=== PATIENT | male | born 1955 | race Caucasian/White ===

== ENCOUNTER → 2018-04-04 06:55 | Outpatient (CLI) | payer BC, SELFPAY ==
[2017-09-26 09:58] VITALS: BMI 32.0
[2018-04-04 08:33] LABS: AST(SGOT) 32 U/L (15-37); Alanine Aminotransfer ALT/SGPT 50 U/L (16-61); Albumin, Serum 3.8 g/dL (3.2-5.0); Alkaline Phosphatase 118 U/L (45-117); Bilirubin, Direct 0.19 mg/dL (0.00-0.30); Cholesterol 152 mg/dL (200); Globulin 3.3 g/dL (2.2-4.2); High Density Lipoprotein 28 mg/dL; Protein, Total 7.1 g/dL (6.4-8.2); Triglycerides 198 mg/dL; Very Low Density Lipoprotein 40 mg/dL (5-40)
== END ==
PROVIDERS: Family Provider Family Medicine; PCP Family Medicine; Referring Provider Nurse Practitioner Family; Visit Provider Nurse Practitioner Family
DX: E78.5 Hyperlipidemia, unspecified (principal); Z79.899 Other long term (current) drug therapy
CPT/HCPCS: 36415; 80061; 80076

== ENCOUNTER → 2018-08-13 07:02 | Outpatient (CLI) | payer BC, SELFPAY ==
[2018-04-10 15:19] VITALS: BMI 31.2
--- NOTE | 2018-08-13 07:04 | ECHOCS_ITS ---
Reason For Study: CAD Procedure This was a 2D Doppler, Color Flow transthoracic echocardiogram. Contrast injection was performed. Exam performed in department. Left Ventricle Normal LV size. Left ventricular systolic function is lower limits of normal. The estimated ejection fraction is 50 %. Stage 1 diastolic dysfunction. No regional wall motion abnormalities noted. Right Ventricle Normal RV size. Normal systolic function. Atria Normal left atrium. Normal right atrium. Mitral Valve Normal mitral valve. Tricuspid Valve Normal tricuspid valve. Mild tricuspid valve insufficiency. Aortic Valve Normal aortic valve. Pulmonic Valve Normal pulmonic valve. Great Vessels Normal aortic root. The pulmonary artery is normal size. Normal inferior vena cava. Pericardium/Pleural No pericardial effusion. Medication Diluted definity 3ml given slow IV push to enhance endocardial definition. MMode/2D Measurements & Calculations LVIDd: 5.9 cm IVSd: 1.1 cm Ao root diam: 3.5 cm LVIDs: 4.6 cm LVPWd: 1.1 cm RVDd: 3.6 cm FS: 21.6 % LAV(MOD-bp): 55.3 ml LA A4 area: 18.0 cm2 LA dimension(2D): 3.6 cm LAV(MOD-bp) Indexed: 24.2 ml/m2 LAV(MOD-sp2): 60.2 ml LAV(MOD-sp4): 49.5 ml RA A4 area: 14.5 cm2 Doppler Measurements & Calculations MV E max saman: 61.2 cm/sec Lat Peak E' Saman: 8.3 cm/sec Med Peak E' Saman: 6.6 cm/sec MV A max saman: 82.5 cm/sec E/E' lat: 7.4 E/E' med: 9.2 MV E/A: 0.74 Ao V2 max: 110.5 cm/sec LV V1 max: 92.9 cm/sec PA V2 max: 114.6 cm/sec Ao max P.9 mmHg LV V1 max P.4 mmHg Ao V2 mean: 82.0 cm/sec Ao mean P.9 mmHg Ao V2 VTI: 23.1 cm PI end-d saman: 101.1 cm/sec TR max saman: 197.7 cm/sec TR max P.6 mmHg Interpretation Summary Normal LV size. Left ventricular systolic function is lower limits of normal. The estimated ejection fraction is 50 %. Stage 1 diastolic dysfunction. Contrast injection was performed. Compared to previous study, the left ventricular systolic function has improved.. Ordering Physician: Mukesh Antony Referring Physician: Figueroa Barrientos Performed By: Josseline Singh, SELENA, RVT
--- NOTE | 2018-08-13 10:24 | STRESSREP ---
Stress Test Report Exercise myocardial perfusion stress test. 63-year-old man for stress test as part of a higher 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 exam requirement. Next Medications: Pravastatin, losartan, clopidogrel. Stress protocol: Resting EKG demonstrated normal sinus rhythm with a rate of 69 bpm normal intervals noted resting blood pressures 142/92 mmHg. The patient exercised according to regular Cosme protocol for a total duration of 9 minutes. The maximum heart rate attained was 155 bpm which was 99% of maximum predicted heart rate the maximum workload was 10.1 metabolic equivalents. Patient completed stage III of the Cosme protocol. The maximum heart rate attained was 155 bpm. The patient maintained sinus rhythm throughout the recording. At rest there were no ST or T wave changes noted suggest ischemia at peak exercise upsloping ST changes were noted with no meet the criteria for ischemia. The resting blood pressure 142/92 with a peak blood pressure of 201 180 mmHg rate-pressure pulse was 30,600. Myocardial perfusion protocol. 14.8 mCi of technetium 99m sestamibi was injected at rest. The patient exercised according to regular Cosme protocol for 9 minutes at peak exercise 44.2 mCi of technetium 99m sestamibi was injected stress images were obtained stress and rest images are reconstructed and compared in the short axis vertical and horizontal long axis. Gated images were also obtained PACS Perfusion SPECT analysis: Review of the stress images demonstrate normal uptake of tracer noted in all areas of myocardium. The resting images similarly demonstrate normal uptake of tracer noted in all areas of myocardium. No areas of reversibility noted suggest ischemia no previous infarct is noted. Gated SPECT analysis: The gated ejection fraction is noted to be 49%. Conclusion: Normal exercise myocardial perfusion stress test at a high workload. Preserved ejection fraction.
== END ==
PROVIDERS: Family Provider Family Medicine; PCP Family Medicine; Referring Provider Internal Medicine Cardiovascular Disease; Visit Provider Internal Medicine Cardiovascular Disease
DX: I25.10 Atherosclerotic heart disease of native coronary artery without angina pectoris (principal); I43 Cardiomyopathy in diseases classified elsewhere; R06.09 Other forms of dyspnea; Z95.1 Presence of aortocoronary bypass graft; Z79.899 Other long term (current) drug therapy
CPT/HCPCS: 78452; 93017; 93306; A9500; Q9957; A4216; C8929

== ENCOUNTER 2018-12-04 17:32 | Emergency (ER) | payer BC, SELFPAY ==
[2018-04-10 15:19] VITALS: BMI 31.2
[2018-12-04 17:33] VITALS: BP 144/88; PULSE 80; RESP 26; TEMP 36.7; O2SAT 96; BMI 30.3
--- NOTE | 2018-12-04 17:46 | EKG12_ITS ---
Test Reason : FALL Blood Pressure : / mmHG Vent. Rate : 080 BPM Atrial Rate : 080 BPM P-R Int : 156 ms QRS Dur : 094 ms QT Int : 372 ms P-R-T Axes : 013 009 027 degrees QTc Int : 429 ms Sinus rhythm with frequent Premature ventricular complexes and Premature atrial complexes Incomplete right bundle branch block Borderline ECG Confirmed by LUIS PRICE ([id number]), purchasing expeditor CHAZ CHAVIS ([id number]) on 12/10/2018 8:49:46 AM Referred By: GM Confirmed By:LUIS PRICE
--- NOTE | 2018-12-04 17:46 | CT_ITS ---
STUDY: CT ABDOMEN AND PELVIS WITH CONTRAST REASON FOR EXAM: Male, 63 years old. Pain. Recent fall. RADIATION DOSAGE (If Supplied By Facility): CTDIvol = ( 19.87 ) mGy, DLP = ( 1279.02 ) mGycm TECHNIQUE: Transaxial images were obtained from the dome of the diaphragm to the symphysis pubis without oral contrast. IV 100mL Isovue-300 100ML was administered. Sagittal and coronal images were reconstructed. Individualized dose optimization techniques were used for this CT. COMPARISON: None. FINDINGS: The visualized lung bases are unremarkable. There is sternotomy wires. There are coronary artery calcifications. Normal liver. Normal gallbladder and extrahepatic biliary system. Normal spleen. Normal pancreas. Normal bilateral adrenal glands. There are right renal cysts measuring up to 1.0 cm. There is 0.4 cm stone at the lower pole of the right kidney. There are left renal cysts including measuring 3.3 cm exophytic from the anterior aspect. There is 0.4 cm stone at the upper pole of the left kidney. There is no hydronephrosis. Normal visualized stomach. There is anterior abdominal wall hernia containing small intestine. There are multiple colonic diverticula consistent with diverticulosis. The appendix is visualized and appears normal. There is diffuse atherosclerotic calcification of the abdominal aorta, without a demonstrated aneurysm. Normal inferior vena cava. Normal retroperitoneum. Normal urinary bladder. There is enlargement of the prostate gland. There are adjacent enlarged right pelvic lymph nodes There is postoperative change in the left inguinal region. There is degenerative change of the spine and hips. There is ankylosis and spurring of the sacroiliac joints. CT/Abdomen/Pelvis WITH Contrast IMPRESSION: No solid organ injury. No acute fracture. Colonic diverticulosis. Anterior abdominal wall hernia containing small bowel. No obstruction. Bilateral renal stones. No hydronephrosis. Enlarged prostate gland. Enlarged pelvic lymph nodes. Electronically Signed: Daniele Gonzalez MD at 18:50 EDT , Service support ,
--- NOTE | 2018-12-04 17:47 | RAD_ITS ---
STUDY: X-RAY CHEST REASON FOR EXAM: Male, 63 years old. Trauma TECHNIQUE: Single frontal view of the chest. COMPARISON: None. FINDINGS: Cardiac silhouette is enlarged. Pulmonary vascularity unremarkable. Aorta unremarkable. The median sternotomy is noted. No focal airspace consolidation. Limited evaluation of the left lung base. Upper abdomen unremarkable. Osseous structures intact. No pneumothorax. RAD/Chest Insp/Exp 2 View IMPRESSION: Limited evaluation of the left lung base secondary to patient body habitus and positioning. Consider a follow-up lateral chest radiograph for further evaluation. Cardiomegaly. Electronically Signed: Len Vazquez, at 18:15 EDT Tel , Service support ,
--- NOTE | 2018-12-04 17:48 | ED.DCSUM_ITS ---
History of Present Illness Chief Complaint: Fall Informant: Patient, Family Onset: Today Mechanism/Context: Fall - 7 foot fall onto left side. Patient states he bounced off the cement. Quality of Pain: Dull, Aching Location: Left shoulder, left chest, left flank Current Severity: Moderate Maximum Severity: Severe Worsened by: Movement and breathing Relieved by: Nothing Associated Symptoms: Negative for: Parasthesias, Weakness, Loss of function, Inability to ambulate, Loss of consciousness, Amnesia Narrative: Patient is a 63-year-old male who presents with left shoulder, left chest and flank pain after falling from a height of 7 feet onto his left side. States he bounced off the concrete. He denies head trauma. He denies neck pain. He denies paresthesia, anesthesia motors. He reports deformity of his left ring finger. Patient denies headache, visual, ocular auditory symptoms. Patient denies trouble with speech or swallowing. Patient states it hurts to breathe. He also reports he is had problems with firm abdomen. He has not urinated since event. He is on no anticoagulant. Prior similar symptoms: No Recent Illness/Hospitalization: No - Past Medical History (1) H/O coronary artery bypass surgery Status: Acute Comment: CABG x 5 - Sequential WARD to LAD & D2, Sequential radial graft to D1 & lateral CX, free OLGA to PDA 05/15/2002 (2) Cardiomyopathy in disease classified elsewhere Status: Chronic (3) Essential (primary) hypertension Status: Chronic (4) Hyperlipidemia Status: Chronic (5) Palpitations Status: Chronic Past Medical History - Allergies and Home Meds Allergies/Adverse Reactions: Allergies amoxicillin Adverse Reaction (Severe, Verified 12/04/18 17:43) Unknown ampicillin Adverse Reaction (Severe, Verified 12/04/18 17:43) Unknown rosuvastatin [From Crestor] Adverse Reaction (Severe, Verified 12/04/18 17:43) Vision changes ezetimibe [From Zetia] Adverse Reaction (Intermediate, Verified 12/04/18 17:43) Severe Constipation gemfibrizol Adverse Reaction (Severe, Uncoded 12/04/18 17:43) Vision changes statins Adverse Reaction (Severe, Uncoded 12/04/18 17:43) Myalgias Primary Care Physician: Figueroa Barrientos DO [Primary Care Provider] - Prior records reviewed: Yes Surgical History: coronary bypass surgery Lives: Alone Smoking Status: Never smoker Alcohol: None Drugs: None Review of Systems General: Denies: Chills, Fever Eyes: Denies: Visual changes - bilaterally, Blurred Vision - bilaterally, Diplopia ENT: Denies: Bilateral ear pain, Rhinorrhea, Sore throat Cardiovascular: Reports: Chest pain. Denies: Palpitations, Heart racing Respiratory: Reports: Dyspnea. Denies: Cough, Sputum Gastrointestinal: Reports: Abdominal pain Genitourinary: Denies: Dysuria, Hematuria, Frequency Musculoskeletal: Reports: Back pain, Extremity Pain. Denies: Myalgias, Arthralgias, Neck pain, Swelling, -, - Skin: Denies: Rash, Wounds Neurological: Denies: Headache, Weakness, Parasthesia, Numbness, -, - Hematologic: Denies: Easy bruising, Easy bleeding Allergy: Denies: Uticaria, Swelling of the mouth Physical Exam Vital Signs/Narrative: Vital Signs Temp Pulse Resp BP Pulse Ox 12/04/18 17:33 98.0 F 80 26 H 144/88 H 96 Inital Vital Signs reviewed: Yes General: Well nourished, Well developed Head: Normocephalic, Atraumatic, - - There is no deformity/depression and no clinical findings of basal skull fracture.. Negative for: Trauma, Tenderness Eyes: Perrl, EOMI, - - There is no subconjunctival hemorrhage noted. Negative for: Pale conjunctiva, Scleral icterus ENT: TM's clear, No hemotympanum or drainage, No trauma. Negative for: Otorrhea, Nasal trauma, Nasal septal hematoma Neck: Nontender, Full ROM. Negative for: Spinal Tenderness Cardiovascular: Regular rate, Regular rhythm, No murmurs, Normal S1, Normal S2 Respiratory: CTA bilaterally, Chest nontender, Decreased Air Movement - Decreased air movement on left. Negative for: No distress Abdomen: No masses, Tender, Hypoactive bowel sounds. Negative for: Rebound tenderness Rectal: Deferred Back: CVA Tenderness - Left, Spinal Tenderness. Negative for: Nontender, CVA Tenderness - Right Extremeties: There is deformity of the DIP joint left ring finger Skin: No rash, - - There is slight mottling with decreased capillary refill. Negative for: Cyanosis, Diaphoresis, Jaundice Neurological: Alert, Oriented x3, Cranial nerves II-XII grossly intact, Normal Strength, Normal Sensation Psychological: Normal affect, Normal Mood - Glascow Coma Scale Eye Opening: Spontaneous Motor: Obeys Commands Verbal: Oriented Coma Scale Total: 15 Diagnostic/Tx/Re-eval Chest X-Ray - ED: Read by ED Physician, - - Three-view x-ray of the left hand reveals a dislocation DIP joint ring finger. Inspiratory and expiratory view reveals a small apical pneumothorax. There is also abnormality of the AC joint with total disruption. CT of the abdomen and pelvis reveals no obvious hepatic, splenic or renal injury. There is no evidence of pneumoperitoneum. Awaiting formal read by radiologist. Impressions Chest X-Ray 12/04/18 17:47 IMPRESSION: Limited evaluation of the left lung base secondary to patient body habitus and positioning. Consider a follow-up lateral chest radiograph for further evaluation. Cardiomegaly. Electronically Signed: Len Vazquez, at 18:15 EDT Tel , Service support , 12/04/18 17:46 Abdomen/Pelvis WITH Contrast [CT] Stat 12/04/18 17:47 Chest Insp/Exp 2 View [RAD] Stat 12/04/18 18:23 Hand Min 3 Views [RAD] Stat Laboratory Results 12/04/18 12/04/18 12/04/18 17:48 17:48 17:48 WBC 8.8 RBC 5.39 Hgb 16.2 Hct 48.8 MCV 90.5 MCH 30.1 MCHC 33.2 RDW Std Deviation 42.2 RDW Coeff of Carol 12.8 Plt Count 197 MPV 9.7 Immature Gran % (Auto) 1.900 H Neut % (Auto) 59.7 Lymph % (Auto) 25.8 Bryan % (Auto) 9.4 Eos % (Auto) 2.4 Baso % (Auto) 0.8 Absolute Neuts (auto) 5.2 Absolute Lymphs (auto) 2.26 Nucleated RBC % 0 PT 13.1 INR 1.0 APTT 26.3 Sodium 141 Potassium 4.2 Chloride 106 Carbon Dioxide 29.0 Anion Gap 6 BUN 16 Creatinine 0.98 Estim Creat Clear Calc 86.06 Est GFR (MDRD) Af Amer 99 Est GFR (MDRD) Non-Af 82 BUN/Creatinine Ratio 16.4 Glucose 130 H Calcium 8.7 Total Bilirubin 0.60 Direct Bilirubin 0.14 AST 26 ALT 41 Alkaline Phosphatase 114 Total Protein 7.4 Albumin 3.9 Globulin 3.5 Postreduction x-ray of the left ring finger reveals proper alignment and reduction. AC x-ray reveals third-degree separation. 2 views were obtained. - Medical Decision Making He was established. He was medicated with Zofran and morphine. Portable inspiratory chest x-ray was obtained to evaluate for pneumothorax. Because of his flank pain and abdominal discomfort as well as lower rib cage discomfort CT of the abdomen with IV contrast was obtained to evaluate for hepatic, splenic or renal injury. Appropriate blood work was obtained as well as coags. Patient was made n.p.o. There is deformity of the left AC joint. Will obtain chest x- ray to determine if there is an associated fracture as well as pneumothorax. X- ray of the left hand was obtained to evaluate extent of deformity digit. Procedures Procedure(s): The left ring finger was anesthetized by digital block. 5 minutes after the lidocaine was instilled the DIP dislocation was reduced with minimal effort. Will obtain post reduction film. We will also obtain films of AC joint to confirm separation noted on chest x-ray. ED Disposition - Plan for ED Patient: Disposition: Home or Assisted Living Diagnosis: Pneumothorax, left, Acromioclavicular joint separation, type 3, Dislocation of distal interphalangeal joint of left ring finger, initial encounter, Left flank contusion, Abdominal wall contusion Instructions: PNEUMOTHORAX, Blunt Trauma, Dislocated Finger Prescriptions: Oxycodone HCl/Acetaminophen [Percocet 5/325] 1 tablet PO Q6H PRN PRN 5 Days #20 tablet PRN Reason: Pain Transmission Status: Received by [facility]/pharmacy #[id number] Referrals: Figueroa Barrientos DO [Primary Care Provider] - Edmundo Mendoza MD [STAFF PHYSICIAN] - 5-7 Days Giovany Lazar MD [STAFF PHYSICIAN] - 1 Day
[2018-12-04 17:59] LABS: Absolute Lymphocyte Count 2.26 X10^3/uL (0.83-4.51); Absolute Neutrophil Count 5.2 X10^3/uL (2.0-7.7); Basophil# 0.07 X10^3/uL; Basophil% 0.8 % (0-1); Eosinophil# 0.21 X10^3/uL; Eosinophils% 2.4 % (0-5); Hematocrit 48.8 % (40-54); Hemoglobin 16.2 g/dL (13.0-16.5); Lymphocyte # 2.26 X10^3/ul (4.0); Lymphocyte % 25.8 % (19-41); Mean Corp Hgb Conc 33.2 g/dL (32-36); Mean Corpuscular Hgb 30.1 pg (27.0-32.0); Mean Corpuscular Volume 90.5 fL (80-94); Mean Platelet Vol. 9.7 fl (6.2-12.0); Monocyte# 0.82 X10^3/uL; Monocyte% 9.4 % (0-10); NRBC Flagged by Analyzer 0 % (0-5); Neutrophil # 5.22 X10^3/uL (2.7-7.7); Neutrophil % 59.7 % (47-70); Platelet Count 197 K/mm3 (150-450); RBC Distribution Width CV 12.8 % (11.6-14.6); RBC Distribution Width SD 42.2 fl (35.1-43.9); Red Blood Count 5.39 M/mm3 (4.6-6.2); White Blood Count 8.8 K/mm3 (4.4-11.0)
[2018-12-04] MEDS: Morphine 4 MG/ML Syringe IV ×2 (18:08→20:12)
[2018-12-04] MEDS: Ondansetron 4 MG/2 ML Vial IV (18:08)
[2018-12-04 18:10] LABS: Prothrombin Time (Protime)PT. 13.1 SECONDS (11.7-14.9)
[2018-12-04 18:11] LABS: Partial Thromboplast Time 26.3 Seconds (24.1-36.2)
[2018-12-04 18:15] LABS: AST(SGOT) 26 U/L (15-37); Alanine Aminotransfer ALT/SGPT 41 U/L (16-61); Albumin, Serum 3.9 g/dL (3.2-5.0); Alkaline Phosphatase 114 U/L (45-117); Anion Gap 6 (5-15); BUN 16 mg/dL (7-18); BUN/Creat Ratio 16.4 RATIO (10-20); Bilirubin, Direct 0.14 mg/dL (0.00-0.30); Calcium,Total 8.7 mg/dL (8.5-10.1); Chloride 106 mmol/L (98-107); Creatinine, Serum 0.98 mg/dL (0.70-1.30); EST Glomerular Filtration Rate 82 mL/min (>60); Est Glom Filt Rate - Afr Amer 99 mL/min (>60); Estimated Creatinine Clearance 86.06 ml/min; Globulin 3.5 g/dL (2.2-4.2); Glucose 130 mg/dL (74-106); Potassium 4.2 mmol/L (3.5-5.1); Protein, Total 7.4 g/dL (6.4-8.2); Sodium Level 141 mmol/L (136-145)
[2018-12-04 18:23] LABS: Bacteria 0 SEEN /hpf (None Seen); Mucous, Urine 0 SEEN /hpf (<or=2+); Squamous Epithelial Cells - UA 0 SEEN /hpf (0-5)
--- NOTE | 2018-12-04 18:23 | RAD_ITS ---
STUDY: X-RAY - LEFT HAND REASON FOR EXAM: Male, 63 years old. Fall. Fourth finger deformity TECHNIQUE: 3 view(s) of the hand. COMPARISON: None. FINDINGS: Normal radiocarpal articulation. Normal distal radioulnar joint. Normal visualized carpal bones. Normal carpal articulations Normal carpometacarpal articulation of the thumb. Normal second through fifth carpometacarpal joints. Normal metacarpi. Normal metacarpophalangeal joint of the thumb. Normal interphalangeal joint of the thumb. Normal proximal and distal phalanges of the thumb. Normal metacarpophalangeal joints of the second through fifth fingers. Normal proximal and interphalangeal joints of the second through fifth fingers. There is dorsal dislocation at the fourth distal interphalangeal joint. There is mild spurring at the distal interphalangeal joints. Normal phalanges of the second through fifth fingers. There is postoperative change and surgical clips in the soft tissues adjacent to the distal radius. No acute fracture seen. RAD/Hand Min 3 Views IMPRESSION: Dislocation at the fourth distal interphalangeal joint. Electronically Signed: Daniele Gonzalez MD at 18:52 EDT , Service support ,
[2018-12-04 18:42] VITALS: PULSE 85; RESP 17; O2SAT 96
[2018-12-04 18:47] LABS: Color, Urine Yellow (Yellow); Glucose, Dipstick Normal (Normal); Ketone-Dipstick Negative (Negative); Leukocyte Esterase-Dipstick 25 /ul (Negative); Nitrite-Dipstick Negative (Negative); Occult Blood-Urine 25 /ul (Negative); Protein-Dipstick 30 mg/dl (Negative); Urine Bilirubin Dipstick Negative (Negative); Urine Clarity Sl. Cloudy (Clear); Urine Urobilinogen Normal (Normal)
[2018-12-04 19:01] LABS: Red Blood Cells-Urine 5-10 SEEN /hpf (0-5); White Blood Cells 5-10 SEEN /hpf (0-5)
[2018-12-04 19:20] VITALS: BP 165/103; PULSE 82; RESP 15; O2SAT 94
--- NOTE | 2018-12-04 19:22 | RAD_ITS ---
STUDY: X-RAY - LEFT HAND, ATTENTION FOURTH FINGER REASON FOR EXAM: Male, 63 years old. Postreduction. TECHNIQUE: 3 view(s) of the finger were obtained. COMPARISON: None. FINDINGS: Normal metacarpal head. Normal metacarpophalangeal joint. Normal proximal phalanx. Normal middle phalanx. There is acute fracture on the volar aspect at the base of the distal phalanx. Normal proximal interphalangeal joint. There is reduction of previously seen dislocation at the distal interphalangeal joint. RAD/Finger(s) Min 2 Views IMPRESSION: Reduction of dislocation. Fracture at the base of the distal phalanx. Electronically Signed: Daniele Gonzalez MD at 20:07 EDT , Service support ,
--- NOTE | 2018-12-04 19:23 | RAD_ITS ---
STUDY: X-RAY - BILATERAL ACROMIOCLAVICULAR JOINTS REASON FOR EXAM: Male, 63 years old. Fall. Left acromioclavicular separation.. TECHNIQUE: 1 view of the right clavicle and acromioclavicular joint. 1 view of the left clavicle and acromioclavicular joint. COMPARISON: None. FINDINGS: Normal right clavicle. 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 Normal left clavicle. There is hypertrophic osteoarthrosis of the left acromioclavicular joint with inferior osseous prominence. There is widening of the left AC joint, with displacement of the clavicle, consistent with a Type III acromioclavicular dislocation. Normal visualized bilateral pulmonary apices. RAD/A/C Jts Ari w or w/o Wts IMPRESSION: Left acromioclavicular separation. Electronically Signed: Daniele Gonzalez MD at 20:12 EDT , Service support ,
[2018-12-04 20:01] VITALS: BP 166/98; PULSE 89; RESP 21; O2SAT 93
[2018-12-04] MEDS: oxyCODONE HCl Cr 10 MG Tablet PO (21:25)
[2018-12-04 21:29] VITALS: BP 157/98; PULSE 80; RESP 16; O2SAT 94
== END 2018-12-04 21:30 | disposition home or self-care (01) ==
PROVIDERS: Emergency Provider Emergency Medicine; Family Provider Family Medicine; PCP Family Medicine
DX: S27.0XXA Traumatic pneumothorax, initial encounter (principal); S43.102A Unspecified dislocation of left acromioclavicular joint, initial encounter; S63.295A Dislocation of distal interphalangeal joint of left ring finger, initial encounter; S30.1XXA Contusion of abdominal wall, initial encounter; Z95.1 Presence of aortocoronary bypass graft; I42.9 Cardiomyopathy, unspecified; I10 Essential (primary) hypertension; E78.5 Hyperlipidemia, unspecified; Z79.82 Long term (current) use of aspirin; Z79.899 Other long term (current) drug therapy; W17.89XA Other fall from one level to another, initial encounter; Y93.89 Activity, other specified; Y92.89 Other specified places as the place of occurrence of the external cause; Y99.8 Other external cause status
CPT/HCPCS: 26770; 71046; 73050; 73130; 73140; 74177; 80048; 80076; 81001; 85025; 85610; 85730; 93005; 96361; 96374; 96375; 96376; 99285; J7030; Q9967; A4216; J2405

== ENCOUNTER → 2018-12-05 08:46 | Outpatient (CLI) | payer BC, SELFPAY ==
[2018-12-04 17:33] VITALS: BMI 30.3
--- NOTE | 2018-12-05 08:48 | RAD_ITS ---
STUDY: X-RAY CHEST REASON FOR EXAM: Male, 63 years old. History of trauma. Left apical pneumothorax TECHNIQUE: Single AP portable view of the chest. Inspiration and expiration views COMPARISON: Chest x-ray yesterday FINDINGS: There appears to be a small left apical pneumothorax, best seen in the expiration view. Lungs are otherwise adequately inflated and clear. Remainder is stable RAD/Chest Insp/Exp 2 View IMPRESSION: Continued small left apical pneumothorax Electronically Signed: Aaron Brito DO at 9:54 EDT Tel , Service support ,
== END ==
PROVIDERS: Family Provider Family Medicine; PCP Family Medicine; Referring Provider Emergency Medicine; Visit Provider Emergency Medicine
DX: J93.9 Pneumothorax, unspecified (principal)
CPT/HCPCS: 71046

== ENCOUNTER → 2019-01-07 08:45 | Outpatient (CLI) | payer BC, SELFPAY ==
[2018-12-05 09:32] VITALS: BMI 30.3
[2019-01-07 11:10] LABS: PSA,Total- Diagnostic 8.07 ng/mL (0.0-4.0)
== END ==
PROVIDERS: Family Provider Preventive Medicine Occupational Medicine; PCP Preventive Medicine Occupational Medicine; Referring Provider Urology; Visit Provider Urology
DX: R97.20 Elevated prostate specific antigen [PSA] (principal)
CPT/HCPCS: 36415; 84153

== ENCOUNTER 2019-02-16 17:10 | Observation (INO) | payer BC, SELFPAY ==
[2018-12-05 09:32] VITALS: BMI 30.3
[2019-02-15] VITALS (11 sets, daily range): BP systolic 101–138; BP diastolic 63–96; PULSE 68–86; RESP 16–18; TEMP 36.2–36.9; O2SAT 94–98; BMI 30.4; BMI 29.7
[2019-02-15] MEDS: Lactated Ringers 1,000 ML 100 ML IV ×2 (08:11→12:19)
[2019-02-15] MEDS: Cefazolin 2 GM in 0.9% Normal Saline 100 ML IV (08:50)
--- NOTE | 2019-02-15 08:50 | PROS_PTH ---
PATIENT: RICHARD HENAO LOC: [facility] U#:[id number] AGE/SX: 63/M ROOM: [facility]319 RE02/16/[address]: Dr. Jorje Tyson MD : [id number] BED: 1 DIS: 02/17/2019 SPEC #: [id number] RECD: 02/15/19 12:58 STATUS: VIMAL REKina #: [id number] MAURICIO: 02/15/19 08:[address]: Jorje Tyson DEPT: SURGICAL PATHOLOGY RECD BY: Maged Lr ENTERED: 02/15/19 13:25 SP TYPE: TURP OTHR DR: Dr. Dyllan Foster, DO Tissues: Prostate, NOS Procedures: Surgery Specimen Level IV HEADER OPERATION: Cysto, TUR prostate, Olymp[employer] PRE-OP DIAGNOSIS: BPH with obstruction TISSUE SUBMITTED: Prostate chips MICROSCOPIC DIAGNOSIS Prostate chips, TUR: Benign prostatic hyperplasia, glandular and stromal type. Focal mild chronic inflammation. SJ:steffany 02/18/19 MICROSCOPIC DESCRIPTION Slides are reviewed. GROSS DESCRIPTION Received is one container labeled with the patient's name and designated prostate tissue. The specimen consists of multiple irregular fragments of pink-tim, rubbery, soft tissue that in aggregate weigh 43.3 gm and measure in aggregate 6.5 x 6.5 x 3 cm. Heel Cementer portions are submitted in 12 cassettes. / AM:steffany 02/15/19 TC:5 CPT: 81802
--- NOTE | 2019-02-15 08:55 | DCINST_ITS ---
Discharge Diet: Light diet - advance as tolerated Discharge Activity: May not drive while taking narcotic pain medications., May Shower May shower in (days): 1 Lifting Restrictions: no lifting for 6 weeks Call your doctor if your incision/area has: Continuous Slow Oozing, Sudden Increased Bleeding, Increased Pain/ Swelling, Increased Redness, Foul Smelling Discharge, Swelling at the incision site Call your doctor if you observe: Fever of 101 or Higher, Uncontrolled pain Suture Line Care: Avoid Pulling/Pushing, Avoid Pinching/Bending Instructions: Transurethral Resection of the Prostate (TURP): Home Recovery Allergies/Adverse Reactions: Allergies amoxicillin Adverse Reaction (Severe, Verified 02/15/19 07:33) Unknown ampicillin Adverse Reaction (Severe, Verified 02/15/19 07:33) Unknown rosuvastatin [From Crestor] Adverse Reaction (Severe, Verified 02/15/19 07:33) Vision changes ezetimibe [From Zetia] Adverse Reaction (Intermediate, Verified 02/15/19 07:33) Severe Constipation gemfibrizol Adverse Reaction (Severe, Uncoded 02/15/19 07:33) Vision changes Medications to take at Discharge atorvastatin 10 mg tablet 10 mg PO QHS #90 tab 06/08/18 losartan 50 mg tablet 50 mg PO QDAY #90 tab 11/13/18 Chelation Therapy 1 dose IV .[id number] 02/12/19 Ciprofloxacin [Cipro] 500 mg PO BID #14 tab 02/15/19 Hydrocodone/Acetaminophen [Highland 5-325 Tablet] 1 each PO Q4H PRN PRN 5 Days #14 tablet 02/15/19 The following prescriptions were given: Ciprofloxacin [Cipro] 500 mg PO BID #14 tab Transmission Status: Pending to [facility] Hydrocodone/Acetaminophen [Highland 5-325 Tablet] 1 each PO Q4H PRN PRN 5 Days #14 tablet PRN Reason: Pain Score 1-10/10 Transmission Status: Sent to [facility] Primary Care Physician: Dyllan Foster DO [Primary Care Provider] - Test Results: Test results from this visit will be discussed in further detail at your follow- up appointment, if applicable. Please Follow Up With: Jorje Tyson MD When: in 2 weeks, please call to make an appointment. Proposed Discharge Date: 02/16/19
[2019-02-15] MEDS: Lubricating Jelly 60 GM Tube 30 GM TOPICAL (09:04)
--- NOTE | 2019-02-15 11:05 | OP.PCM_ITS ---
Report of Operation Date of Procedure: 02/15/19 Pre-Operative Diagnosis: BPH with obstruction and large prostate Post-Operative Diagnosis: The same Surgery/Procedure Performed:: Transurethral resection of the prostate Description of Surgical Findings:: 63-year-old male with a history of a very large prostate he underwent a laser procedure in the prostate several years ago however he is experienced significant regrowth still has significant difficulties going to the bathroom a lot of calcification stones floating in the prostate and bladder so today we can proceed with a transurethral resection of the prostate we talked about the risk of the surgery including bleeding infection failure to cure his recurrent bleeding failure to improve his symptoms. 63-year-old male taken back to the operating that is been induction of general anesthesia he was placed in dorsolithotomy position, first went into the bladder with a 21 Mozambican rigid cystourethroscope I found a very large bilateral hypertrophy caused a lot of obstruction within the bladder with a large median lobe protruding into the base of the bladder left and right ureter orifice were identified bladder calcifications floating to the bladder some calcifications stuck on the prostate. I then put in a 26 Mozambican continuous-flow resectoscope first I resected the median lobe very carefully matrix resected the entire median lobe all the way back to the bladder neck both the right and left ureteral orifice were intact and uninjured during this resection I then proceeded with the resection of the prostate again I did the left lobe of the prostate first this took about an hour to resect the left low the prostate and then the right lobe of the prostate second is to about 45 minutes of resected the right lobe of the prostate after the resection was done then I switched over to the vaporization of the button and buttoned and smooth out the resection no flapping tissue was identified he did have a missing verumontanum I presume that it was lasered away from his prior procedure goes not visible on this procedure but certainly the sphincter was intact and sphincter was visible and and was clearly active. At the end of the resection got all the chips out obtained as best as possible hemostasis as best as possible with such a large resection had a lot of oozing tissue oozing. Get a flow test had a nice wide opening straight flow no obstruction and we put a 24 Mozambican catheter into the bladder put on continuous bladder irrigation the urine was a little bit bloody and is taken in an output 60 cc in the balloon for mild traction taken back to the PACU with irrigation running flow smoothly. Probably will stay the hospital 2 nights after this large resection. Type of Anesthesia:: General Drains: nazario - Admit VTE Documentation VTE Present on Admission: No
[2019-02-15] MEDS: 0.9% Normal Saline 1,000 ML 75 ML IV (12:34)
[2019-02-15] MEDS: Docusate Sodium 100 MG Capsule PO ×2 (12:35→21:15)
[2019-02-15] MEDS: Pantoprazole Sodium 40 MG Tablet PO (12:35)
[2019-02-15] MEDS: Ciprofloxacin 400 MG/200 ML BAG 200 MG IV (16:37)
[2019-02-15] MEDS: Atorvastatin Calcium 10 MG Tablet PO (21:15)
[2019-02-16 02:10] VITALS: BP 114/67; PULSE 67; RESP 16; TEMP 36.6; O2SAT 95
[2019-02-16] MEDS: Ciprofloxacin 400 MG/200 ML BAG 200 MG IV (03:58)
[2019-02-16] MEDS: 0.9% Normal Saline 1,000 ML 75 ML IV ×2 (03:59→18:58)
[2019-02-16 07:32] LABS: Hematocrit 42.6 % (40-54); Hemoglobin 14.3 g/dL (13.0-16.5); Mean Corp Hgb Conc 33.6 g/dL (32-36); Mean Corpuscular Hgb 29.7 pg (27.0-32.0); Mean Corpuscular Volume 88.6 fL (80-94); Mean Platelet Vol. 10.1 fl (6.2-12.0); Platelet Count 181 K/mm3 (150-450); RBC Distribution Width CV 13.1 % (11.6-14.6); RBC Distribution Width SD 42.2 fl (35.1-43.9); Red Blood Count 4.81 M/mm3 (4.6-6.2); White Blood Count 15.6 K/mm3 (4.4-11.0)
[2019-02-16 07:56] LABS: Anion Gap 4 (5-15); BUN 15 mg/dL (7-18); BUN/Creat Ratio 16.4 RATIO (10-20); Calcium,Total 8.4 mg/dL (8.5-10.1); Chloride 110 mmol/L (98-107); Creatinine, Serum 0.92 mg/dL (0.70-1.30); EST Glomerular Filtration Rate 88 mL/min (>60); Est Glom Filt Rate - Afr Amer 107 mL/min (>60); Estimated Creatinine Clearance 91.67 ml/min; Glucose 130 mg/dL (74-106); Sodium Level 142 mmol/L (136-145)
[2019-02-16 08:36] VITALS: BP 130/78; PULSE 93; RESP 18; TEMP 37; O2SAT 98
[2019-02-16] MEDS: Losartan Potassium 50 MG Tablet PO (08:39)
[2019-02-16] MEDS: Docusate Sodium 100 MG Capsule PO ×2 (08:39→22:41)
--- NOTE | 2019-02-16 09:07 | NURSING ---
Walked in king, x2 around the floor with SBA from this nurse. Denies dizzyness/lightheadedness.
--- NOTE | 2019-02-16 10:06 | PN_ITS ---
Subjective: Status post resection a very large prostate urine is fairly clear today but too early to get the catheter out given how big his prostate was had pretty heavy bleeding yesterday. Blood work looks good. He is doing well - Physical Exam Vitals/I&O's: Vital Signs Temp Pulse Resp BP Pulse Ox 98.6 F 93 18 130/78 H 98 02/16/19 08:36 02/16/19 08:36 02/16/19 08:36 02/16/19 08:36 02/16/19 08:36 Oxygen Flow Rate (L/min) 4 Oxygen Delivery Method Room Air Weight: 102.058 kg Body Mass Index (BMI) 29.7 Intake and Output for Last 24 Hours 02/14/19 02/15/19 02/16/19 23:59 23:59 23:59 Intake Total 1698.33 / 1698.33 886.25 / 886.25 Output Total 2950 / 2950 1600 / 1600 Balance -1251.67 / -1251.67 -713.75 / -713.75 General: Alert, Oriented x3, Cooperative HEENT: Atraumatic, PERRLA, EOMI, Normocephalic Neck: Supple, No JVD, Negative Carotid Bruits Lungs: Clear to auscultation, Normal air movement Cardiovascular: Regular rate, No murmurs Abdomen: Bowel Sounds Present, Soft, Non Tender Extremities: No edema, Capillary Refill Less than 3 Seconds Skin: No rashes, No breakdown Musculoskeletal: No Tenderness to Palpation of Joints or Extremities Neurological: Cranial nerves II-XII grossly intact Psych/Mental Status: Normal Affect, Appropriate Laboratory Results 02/16/19 06:38: WBC 15.6 H, RBC 4.81, Hgb 14.3, Hct 42.6, MCV 88.6, MCH 29.7, MCHC 33.6, RDW Std Deviation 42.2, RDW Coeff of Carol 13.1, Plt Count 181, MPV 10.1 02/16/19 06:38: Sodium 142, Potassium 4.0, Chloride 110 H, Carbon Dioxide 28.0, Anion Gap 4 L, BUN 15, Creatinine 0.92, Estim Creat Clear Calc 91.67, Est GFR (MDRD) Af Amer 107, Est GFR (MDRD) Non-Af 88, BUN/Creatinine Ratio 16.4, Glucose 130 H, Calcium 8.4 L Current Medications Acetaminophen (Tylenol) 325 mg PO Q4H PRN PRN PRN Reason: Pain Score 1-10/10 Al Hydroxide/Mg Hydroxide (Mylanta Ii) 30 ml PO Q4H PRN PRN PRN Reason: Heartburn Atorvastatin Calcium (Lipitor) 10 mg PO QHS [facility] Last Admin: 02/15/19 21:15 Dose: 10 mg Documented by: Belladonna Alkaloids/Opium (B & O) 60 mg RECTAL Q6H PRN PRN PRN Reason: Spasm Docusate Sodium (Colace) 100 mg PO BID [facility] Last Admin: 02/16/19 08:39 Dose: 100 mg Documented by: Sodium Chloride () 1,000 mls @ 75 mls/hr IV .[id number] [facility] Last Infusion: 02/16/19 04:58 Dose: 75 mls/hr Documented by: Ibuprofen (Motrin) 600 mg PO Q6H PRN PRN PRN Reason: Pain Score 1-10/10 Losartan Potassium (Cozaar) 50 mg PO DAILY [facility] Last Admin: 02/16/19 08:39 Dose: 50 mg Documented by: Ondansetron HCl (Zofran) 4 mg IV Q6H PRN PRN PRN Reason: Nausea Oxycodone HCl (Oxyir) 5 mg PO Q4H PRN PRN PRN Reason: Pain Score 1-10/10 Pantoprazole Sodium (Protonix) 40 mg PO DAILY [facility] Last Admin: 02/16/19 08:38 Dose: Not Given Documented by: Sodium Chloride () 10 - 40 ml IV UD PRN PRN Reason: SALINE FLUSH Tolterodine Tartrate (Detrol La) 4 mg PO DAILY PRN PRN PRN Reason: Spasms Medical Necessity - Tobacco Use Smoking Status: Never smoker Tobacco Use: Non-smoker Assessment/Plan All Active Problems (Last Reviewed 12/05/18 @ 09:31 by Francisca Cunha) H/O coronary artery bypass surgery (Acute 05/15/02) 63-year-old male status post TURP we will plan to remove the catheter tomorrow morning for voiding trial probably home tomorrow.
[2019-02-16 15:07] VITALS: BP 125/73; PULSE 82; RESP 18; TEMP 36.5; O2SAT 96
--- NOTE | 2019-02-16 19:29 | NURSING ---
IV site infiltrated to Lt Hand. LT hand very edematous, able to move fingers but feel stiff. IV taken out by this nurse and clear fluid coming out of puncture site where iv was at. This nurse pressed down a few times and more clear fluid came out. LT radial pulse wnl. Dr. Tyson called and made aware.
[2019-02-16 21:10] VITALS: BP 135/84; PULSE 70; RESP 18; TEMP 36.7; O2SAT 95
[2019-02-16] MEDS: Atorvastatin Calcium 10 MG Tablet PO (22:41)
[2019-02-17 02:49] VITALS: BP 134/83; PULSE 82; RESP 16; TEMP 37.2; O2SAT 96
[2019-02-17 08:45] VITALS: BP 126/84; PULSE 80; RESP 20; TEMP 36.9; O2SAT 97
[2019-02-17] MEDS: Acetaminophen 325 MG Tablet PO (09:09)
[2019-02-17] MEDS: 0.9% Normal Saline 1,000 ML 75 ML IV (09:11)
[2019-02-17 09:17] VITALS: PULSE 80
[2019-02-17] MEDS: Docusate Sodium 100 MG Capsule PO (10:02)
[2019-02-17] MEDS: Losartan Potassium 50 MG Tablet PO (10:02)
[2019-02-17 12:01] VITALS: BP 125/85; PULSE 75; RESP 20; TEMP 36.8; O2SAT 95
== END 2019-02-17 12:00 | disposition home or self-care (01) ==
LOC: SDC 17:25 → MS3 02-18 09:34
PROVIDERS: Admitting Provider Urology; Family Provider Preventive Medicine Occupational Medicine; PCP Preventive Medicine Occupational Medicine; Referring Provider Urology; Visit Provider Urology
PROC: (CPT 52601; principal; 2019-02-15 08:40)
DX: N40.1 Benign prostatic hyperplasia with lower urinary tract symptoms (principal); N13.8 Other obstructive and reflux uropathy; E78.00 Pure hypercholesterolemia, unspecified; Z79.899 Other long term (current) drug therapy; Z79.82 Long term (current) use of aspirin; I10 Essential (primary) hypertension
CPT/HCPCS: 52601; 36415; 80048; 85027; 86850; 86900; 86901; 88305; 96361; 96365; 96366; 99218; 99251; J7030; J7120; G0378; G0379; G0463; J0744; J2405

== ENCOUNTER 2019-03-08 12:21 | Observation (INO) | payer BC, SELFPAY ==
[2019-02-15 12:50] VITALS: BMI 29.7
[2019-03-08 12:25] VITALS: BP 174/118; PULSE 96; RESP 18; TEMP 36.3; O2SAT 98; BMI 29.8
--- NOTE | 2019-03-08 12:49 | ED.DCSUM_ITS ---
History of Present Illness Chief Complaint: Complaint Informant: Patient Onset: Today Context: Sudden Onset Narrative: Patient is a 63-year-old male with history of coronary artery disease status post CABG, hypertension, hyperlipidemia, cardiomyopathy and BPH presenting with hematuria. Patient had a TURP procedure with Dr. Tyson 2 weeks ago. And states he has not had any complications until today. He notes that he has had minimal pink-tinged urine and pain. This morning when he went to urinate he had dysuria, a lot of urgency and gross blood. He states when he peed there was blood everywhere in the toilet and clots. Since then patient still is feeling a significant amount of urgency and is continued to have blood draining from his penis. He is not on any anticoagulation. Did not take any aspirin today. He notes he is currently on a Z-Mychal, steroids and inhaler for questionable pneumonia. He denies any respiratory symptoms at this time. Past Medical History - Allergies and Home Meds Allergies/Adverse Reactions: Allergies amoxicillin Allergy (Verified 03/08/19 15:54) rash on feet after 5 days of treatment ampicillin Allergy (Verified 03/08/19 15:54) Rash on feet after 5 days rosuvastatin [From Crestor] Adverse Reaction (Severe, Verified 03/08/19 15:54) Vision changes/eye pain/knee pain ezetimibe [From Zetia] Adverse Reaction (Intermediate, Verified 03/08/19 12:27) Severe Constipation gemfibrizol Adverse Reaction (Severe, Uncoded 03/08/19 12:27) Vision changes Past Medical History: - - Coronary artery disease, cardiomyopathy, hypertension, hyperlipidemia, BPH Surgical History: coronary bypass surgery, TURP Lives: Spouse/ Significant Other Smoking Status: Never smoker Review of Systems General: Denies: Chills, Fever, Sweats Eyes: Denies: Visual changes - bilaterally, Diplopia ENT: Denies: Rhinorrhea, Sore throat Cardiovascular: Denies: Chest pain, Palpitations Respiratory: Reports: Cough - Resolving. Denies: Dyspnea, Dyspnea on exertion Gastrointestinal: Denies: Abdominal pain, Nausea, Vomiting, Diarrhea, Melena, Hematochezia Genitourinary: Reports: Dysuria, Hematuria, - - Urgency. Denies: Frequency Musculoskeletal: Denies: Back pain, Extremity Pain Skin: Denies: Rash, Wounds Neurological: Denies: Headache, Weakness, Numbness Physical Exam Vital Signs/Narrative: Vital Signs Temp Pulse Resp BP Pulse Ox 03/08/19 12:25 97.4 F L 96 18 174/118 H 98 Inital Vital Signs reviewed: Yes General: Well nourished, Well developed, No Acute Distress Head: Normocephalic, Atraumatic Eyes: Perrl, EOMI ENT: Moist mucous membranes, No rhinorrhea Neck: Supple, Nontender Cardiovascular: Regular rate, Regular rhythm, No murmurs Respiratory: No distress, CTA bilaterally, Chest nontender Abdomen: Soft, Normal bowel sounds, Tender - Suprapubic region, distended bladder palpated : - - Dark red blood dribbling out of the penis meatus Back: Nontender, Normal Inspection Extremities: Nontender, No edema Skin: Normal color, No rash Neurological: Alert, Oriented x3, Cranial nerves II-XII grossly intact, Normal Strength, Normal Sensation Psychological: Normal affect, Normal Mood, - - Anxious Diagnostic/Tx/Re-eval Laboratory Data 03/08/19 12:45 Urine Color Red Urine Clarity Turbid Urine pH 8.0 Ur Specific [place] 1.015 Urine Protein 500 H Urine Glucose (UA) Normal Urine Ketones 5 H Urine Occult Blood 150 H Urine Nitrite Negative Urine Bilirubin Negative Urine Urobilinogen Normal Ur Leukocyte Esterase Negative Urine RBC > 100 SEEN Urine WBC 10-25 SEEN Ur Squamous Epith Cells 0 SEEN Urine Bacteria 0 SEEN Urine Mucus 0 SEEN - Medical Decision Making Patient is evaluated for significant hematuria, dysuria and urgency. Patient has gross blood and when he tries to urinate in the emergency room. He has 100 cc of urine on bladder scan after attempting to urinate. Because of the low level of due to significant hematuria three-way Jones irrigating catheter was placed. After 2 L of irrigation patient still has pretty dark red blood in the Jones catheter draining however the clots have cleared. He only had about 100 cc of urine out. Patient is more comfortable now. No signs of infection on urinalysis. Likely is bleeding is due to his recent TURP. Discussed the case with his urologist, Dr. Saucedo, who will admit for continuous bladder irrigation and further evaluation. Patient is agreeable and comfortable this plan. Patient is given a dose of Motrin and then Ativan due to pain and associated anxiety while in the emergency room. I did add on a CBC and a BMP at time of admission. These are resulted and grossly normal. Patient stable for general medical floor at time of disposition. ED Disposition - Plan for ED Patient: Disposition: Acute Care Hospital [facility] Diagnosis: Gross hematuria, Urinary retention
[2019-03-08 12:59] LABS: Bacteria 0 SEEN /hpf (None Seen); Mucous, Urine 0 SEEN /hpf (<or=2+); Squamous Epithelial Cells - UA 0 SEEN /hpf (0-5)
[2019-03-08 13:02] LABS: Color, Urine Red (Yellow); Glucose, Dipstick Normal (Normal); Ketone-Dipstick 5 mg/dl (Negative); Leukocyte Esterase-Dipstick Negative /ul (Negative); Nitrite-Dipstick Negative (Negative); Occult Blood-Urine 150 /ul (Negative); Protein-Dipstick 500 mg/dl (Negative); Specific Gravity, Urine 1.015 (1.002-1.030); Urine Bilirubin Dipstick Negative (Negative); Urine Clarity Turbid (Clear); Urine Urobilinogen Normal (Normal)
[2019-03-08 13:11] LABS: White Blood Cells 10-25 SEEN /hpf (0-5)
[2019-03-08 13:12] LABS: Red Blood Cells-Urine > 100 SEEN /hpf (0-5)
[2019-03-08 14:24] VITALS: BP 132/97; PULSE 87; RESP 18; O2SAT 96
[2019-03-08] MEDS: Ibuprofen 600 MG Tablet PO (14:27)
[2019-03-08] MEDS: LORazepam 0.5 MG Tablet PO (14:28)
--- NOTE | 2019-03-08 15:23 | PCM.HP.STD ---
History of Present Illness Date of Admission: 03/08/19 Chief Complaint: gross hematuria The patient is a 63 year old Jones catheter has been placed he is on continuous bladder irrigation can bring him in the hospital because of the bleeding. Past Medical History Past Medical History (Chronic Problems): Chronic Problems (Last Reviewed 12/05/18 @ 09:31 by Francisca Cunha) Essential (primary) hypertension (Chronic) Palpitations (Chronic) Hyperlipidemia (Chronic) Cardiomyopathy in disease classified elsewhere (Chronic) Atherosclerotic heart disease of [place] coronary artery without angina pectoris (Chronic) CABG x 5 - Sequential WARD to LAD & D2, Sequential radial graft to D1 & lateral CX, free OLGA to PDA 05/15/2002 Dyspnea on exertion (Chronic) Medical History: Medical History (Last Reviewed 12/05/18 @ 09:31 by Francisca Cunha) Essential (primary) hypertension (Chronic) I10 Palpitations (Chronic) R00.2 Hyperlipidemia (Chronic) E78.5 Cardiomyopathy in disease classified elsewhere (Chronic) I43 Atherosclerotic heart disease of [place] coronary artery without angina pectoris (Chronic) I25.10 CABG x 5 - Sequential WARD to LAD & D2, Sequential radial graft to D1 & lateral CX, free OLGA to PDA 05/15/2002 Dyspnea on exertion (Chronic) R06.09 History of lipoma removal Allergies amoxicillin Adverse Reaction (Severe, Verified 03/08/19 12:27) Unknown ampicillin Adverse Reaction (Severe, Verified 03/08/19 12:27) Unknown rosuvastatin [From Crestor] Adverse Reaction (Severe, Verified 03/08/19 12:27) Vision changes ezetimibe [From Zetia] Adverse Reaction (Intermediate, Verified 03/08/19 12:27) Severe Constipation gemfibrizol Adverse Reaction (Severe, Uncoded 03/08/19 12:27) Vision changes Home Medications: Ambulatory Orders Medication Instructions Recorded losartan 50 mg tablet 50 mg PO QDAY #90 tab 11/13/18 atorvastatin 10 mg tablet 10 mg PO QHS #90 tab 03/01/19 Albuterol IH (ProAir) [Proair Hfa 1 puff INHALATION Q4H PRN PRN 03/08/19 (SP)Vent Pts] Prednisone 20 mg PO BID 03/08/19 Surgical History: Surgical History (Last Reviewed 12/05/18 @ 09:31 by Francisca Cunha) History of Achilles tendon repair Z98.890 plantar fasciatis History of arthroscopy of right knee Z98.890 History of back surgery Z98.890 History of left inguinal hernia repair Z98.890, Z87.19 History of tonsillectomy Z90.89 Surgical History: coronary bypass surgery, TURP Lives: Spouse/ Significant Other Smoking Status: Never smoker VTE Information - Inpt Only VTE Present on Admission: No - Physical Exam Vitals/I&O's: Vital Signs Temp Pulse Resp BP Pulse Ox 97.4 F L 87 18 132/97 H 96 03/08/19 12:25 03/08/19 14:24 03/08/19 14:24 03/08/19 14:24 03/08/19 14:24 Oxygen Delivery Method Room Air Weight: 102.6 kg Body Mass Index (BMI) 29.8 General: Alert, Oriented x3, Cooperative HEENT: Atraumatic, PERRLA, EOMI, Normocephalic Neck: Supple, No JVD, Negative Carotid Bruits Lungs: Clear to auscultation, Normal air movement Cardiovascular: Regular rate, No murmurs Abdomen: Bowel Sounds Present, Soft, Non Tender Extremities: No edema, Capillary Refill Less than 3 Seconds Skin: No rashes, No breakdown Musculoskeletal: No Tenderness to Palpation of Joints or Extremities Neurological: Cranial nerves II-XII grossly intact Psych/Mental Status: Normal Affect, Appropriate Laboratory Results 03/08/19 12:45: Urine Color Red, Urine Clarity Turbid, Urine pH 8.0, Ur Specific [place] 1.015, Urine Protein 500 H, Urine Glucose (UA) Normal, Urine Ketones 5 H, Urine Occult Blood 150 H, Urine Nitrite Negative, Urine Bilirubin Negative, Urine Urobilinogen Normal, Ur Leukocyte Esterase Negative, Urine RBC > 100 SEEN, Urine WBC 10-25 SEEN, Ur Squamous Epith Cells 0 SEEN, Urine Bacteria 0 SEEN, Urine Mucus 0 SEEN Assessment/Plan All Active Problems (Last Reviewed 12/05/18 @ 09:31 by Francisca Cunha) H/O coronary artery bypass surgery (Acute 05/15/02) Patient will be admitted for postoperative bleeding after TURP I did see him in the office last week and the urine was clear.
--- NOTE | 2019-03-08 15:30 | NURSING ---
MED SURG HEMATURIA, URINARY RETENTION TERI
[2019-03-08 15:38] VITALS: BMI 29.8
[2019-03-08 15:56] VITALS: BMI 29.8
[2019-03-08] MEDS: 0.9% Normal Saline 1,000 ML 75 ML IV (15:58)
[2019-03-08 16:02] LABS: Absolute Lymphocyte Count 0.49 X10^3/uL (0.83-4.51); Absolute Neutrophil Count 10.1 X10^3/uL (2.0-7.7); Basophil# 0.02 X10^3/uL; Basophil% 0.2 % (0-1); Eosinophil# 0.01 X10^3/uL; Eosinophils% 0.1 % (0-5); Hematocrit 40.8 % (40-54); Hemoglobin 13.5 g/dL (13.0-16.5); Lymphocyte # 0.49 X10^3/ul (4.0); Lymphocyte % 4.5 % (19-41); Mean Corp Hgb Conc 33.1 g/dL (32-36); Mean Corpuscular Hgb 29.1 pg (27.0-32.0); Mean Corpuscular Volume 87.9 fL (80-94); Monocyte# 0.25 X10^3/uL; Monocyte% 2.3 % (0-10); NRBC Flagged by Analyzer 0 % (0-5); Neutrophil # 10.14 X10^3/uL (2.7-7.7); Neutrophil % 92.4 % (47-70); POSITIVE DIFFERENTIAL YES; Platelet Count 200 K/mm3 (150-450); RBC Distribution Width CV 13.6 % (11.6-14.6); RBC Distribution Width SD 43.6 fl (35.1-43.9); Red Blood Count 4.64 M/mm3 (4.6-6.2)
[2019-03-08 16:05] LABS: Anion Gap 6 (5-15); BUN 17 mg/dL (7-18); BUN/Creat Ratio 17.3 RATIO (10-20); Calcium,Total 8.9 mg/dL (8.5-10.1); Chloride 110 mmol/L (98-107); Creatinine, Serum 0.98 mg/dL (0.70-1.30); EST Glomerular Filtration Rate 82 mL/min (>60); Est Glom Filt Rate - Afr Amer 99 mL/min (>60); Estimated Creatinine Clearance 86.06 ml/min; Glucose 131 mg/dL (74-106); Sodium Level 141 mmol/L (136-145)
[2019-03-08 16:23] LABS: Differential Indicated SCAN CRITERIA MET
[2019-03-08 17:07] LABS: Differential Comment SCANNED
[2019-03-08] MEDS: Albuterol 2.5 MG/3 ML VIAL.NEB. INHALATION ×2 (17:13→22:12)
[2019-03-08 17:15] VITALS: PULSE 87; RESP 18
[2019-03-08] MEDS: predniSONE 20 MG Tablet PO (18:02)
[2019-03-08 20:05] VITALS: BP 119/81; PULSE 81; RESP 18; TEMP 36.8; O2SAT 97
[2019-03-08] MEDS: Atorvastatin Calcium 10 MG Tablet PO (22:03)
[2019-03-08] MEDS: Docusate Sodium 100 MG Capsule PO (22:03)
[2019-03-08 22:13] VITALS: PULSE 77; RESP 17; O2SAT 94
--- NOTE | 2019-03-08 22:14 | CPS ---
patient requested prn treatment due to cough
[2019-03-09] VITALS (7 sets, daily range): BP systolic 120–135; BP diastolic 82–92; PULSE 77–96; RESP 16–20; TEMP 36.4–37.1; O2SAT 94–97
[2019-03-09] MEDS: 0.9% Normal Saline 1,000 ML 75 ML IV (02:01)
[2019-03-09] MEDS: Albuterol 2.5 MG/3 ML VIAL.NEB. INHALATION ×3 (02:10→20:37)
--- NOTE | 2019-03-09 02:13 | CPS ---
patient recieved prn treatment by patient request due to cough.
--- NOTE | 2019-03-09 02:37 | NURSING ---
Pt states he adjusted the cbi to run faster. This nurse explained he needs to call a nurse if it needs adjusted. No clots noted in tubing or bag. cbi light red. Pt denies pain or spasms at this time. CBI Jones emptied. Called Resp for a breathing treatment per pts request.
--- NOTE | 2019-03-09 06:50 | PN_ITS ---
Patient Problems: Active and Suspected Problems (Last Reviewed 12/05/18 @ 09:31 by Francisca Cunha) Gross hematuria (Acute) Urinary retention (Acute) Subjective: 63-year-old male recent pneumonia had a lot of coughing for several days eventually started bleeding again he just had a TURP catheter was placed he is on continuous bladder irrigation the urine is fairly clear and a few clots overnight. - Physical Exam Vitals/I&O's: Vital Signs Temp Pulse Resp BP Pulse Ox 97.6 F L 77 18 135/92 H 94 03/09/19 02:06 03/09/19 02:11 03/09/19 02:11 03/09/19 02:06 03/09/19 02:11 Oxygen Delivery Method Room Air Weight: 102.6 kg Body Mass Index (BMI) 29.8 Intake and Output for Last 24 Hours 03/07/19 03/08/19 03/09/19 23:59 23:59 23:59 Intake Total 720 / 720 903.75 / 903.75 Output Total 2150 / 2150 650 / 650 Balance -1430 / -1430 253.75 / 253.75 General: Alert, Oriented x3, Cooperative HEENT: Atraumatic, PERRLA, EOMI, Normocephalic Neck: Supple, No JVD, Negative Carotid Bruits Lungs: Clear to auscultation, Normal air movement Cardiovascular: Regular rate, No murmurs Abdomen: Bowel Sounds Present, Soft, Non Tender Extremities: No edema, Capillary Refill Less than 3 Seconds Skin: No rashes, No breakdown Musculoskeletal: No Tenderness to Palpation of Joints or Extremities Neurological: Cranial nerves II-XII grossly intact Psych/Mental Status: Normal Affect, Appropriate Laboratory Results 03/08/19 12:45: Urine Color Red, Urine Clarity Turbid, Urine pH 8.0, Ur Specific [place] 1.015, Urine Protein 500 H, Urine Glucose (UA) Normal, Urine Ketones 5 H , Urine Occult Blood 150 H, Urine Nitrite Negative, Urine Bilirubin Negative, Urine Urobilinogen Normal, Ur Leukocyte Esterase Negative, Urine RBC > 100 SEEN, Urine WBC 10-25 SEEN, Ur Squamous Epith Cells 0 SEEN, Urine Bacteria 0 SEEN, Urine Mucus 0 SEEN 03/08/19 15:39: WBC 11.0, RBC 4.64, Hgb 13.5, Hct 40.8, MCV 87.9, MCH 29.1, MCHC 33.1, RDW Std Deviation 43.6, RDW Coeff of Carol 13.6, Plt Count 200, MPV 10.0, Immature Gran % (Auto) 0.500, Neut % (Auto) 92.4 H, Lymph % (Auto) 4.5 L, [place] % (Auto) 2.3, Eos % (Auto) 0.1, Baso % (Auto) 0.2, Absolute Neuts (auto) 10.1 H, Absolute Lymphs (auto) 0.49 L, Nucleated RBC % 0, Differential Comment SCANNED 03/08/19 15:39: Sodium 141, Potassium 4.0, Chloride 110 H, Carbon Dioxide 25.0, Anion Gap 6, BUN 17, Creatinine 0.98, Estim Creat Clear Calc 86.06, Est GFR (MDRD) Af Amer 99, Est GFR (MDRD) Non-Af 82, BUN/Creatinine Ratio 17.3, Glucose 131 H, Calcium 8.9 Current Medications Acetaminophen (Tylenol) 325 mg PO Q4H PRN PRN PRN Reason: Pain Score 1-10/10 Al Hydroxide/Mg Hydroxide (Mylanta Ii) 30 ml PO Q4H PRN PRN PRN Reason: Heartburn Albuterol Sulfate (Ventolin Aerosols) 2.5 mg INHALATION Q4H PRN PRN Reason: Wheezing Last Admin: 03/09/19 02:10 Dose: 2.5 mg Documented by: Atorvastatin Calcium (Lipitor) 10 mg PO QHS [facility] Last Admin: 03/08/19 22:03 Dose: 10 mg Documented by: Azithromycin (Zithromax) 250 mg PO Q24 [facility] Stop: 03/11/19 11:00 Belladonna Alkaloids/Opium (B & O) 60 mg RECTAL Q6H PRN PRN PRN Reason: Spasm Docusate Sodium (Colace) 100 mg PO BID [facility] Last Admin: 03/08/19 22:03 Dose: 100 mg Documented by: Guaifenesin (Robitussin) 10 ml PO Q6H PRN PRN PRN Reason: COUGH Sodium Chloride () 1,000 mls @ 75 mls/hr IV .[id number] [facility] Last Admin: 03/09/19 02:01 Dose: 75 mls/hr Documented by: Losartan Potassium (Cozaar) 50 mg PO DAILY [facility] Ondansetron HCl (Zofran) 4 mg IV Q8H PRN PRN Reason: Nausea Oxycodone HCl (Oxyir) 5 mg PO Q4H PRN PRN PRN Reason: Pain Score 1-10/10 Pantoprazole Sodium (Protonix) 40 mg PO DAILY [facility] Last Admin: 03/08/19 18:02 Dose: 20 mg Documented by: Sodium Chloride () 10 - 40 ml IV UD PRN PRN Reason: SALINE FLUSH Tolterodine Tartrate (Detrol La) 4 mg PO DAILY PRN PRN PRN Reason: Spasms Medical Necessity - Tobacco Use Smoking Status: Never smoker Tobacco Use: Non-smoker Assessment/Plan All Active Problems (Last Reviewed 12/05/18 @ 09:31 by Francisca Cunha) Gross hematuria (Acute) Urinary retention (Acute) H/O coronary artery bypass surgery (Acute 05/15/02) 63-year-old male status post TURP with postoperative bleeding contributed factor was his pneumonia and heavy coughing. Continue with antibiotics continue his CBI irrigation probably will DC Jones tomorrow for voiding trial.
[2019-03-09 07:41] LABS: Hematocrit 37.3 % (40-54); Hemoglobin 12.4 g/dL (13.0-16.5); Mean Corp Hgb Conc 33.2 g/dL (32-36); Mean Corpuscular Hgb 29.7 pg (27.0-32.0); Mean Corpuscular Volume 89.2 fL (80-94); Mean Platelet Vol. 9.6 fl (6.2-12.0); Platelet Count 190 K/mm3 (150-450); RBC Distribution Width CV 13.7 % (11.6-14.6); RBC Distribution Width SD 44.8 fl (35.1-43.9); Red Blood Count 4.18 M/mm3 (4.6-6.2); White Blood Count 11.5 K/mm3 (4.4-11.0)
[2019-03-09] MEDS: predniSONE 20 MG Tablet PO ×2 (07:44→16:28)
[2019-03-09 07:58] LABS: Anion Gap 6 (5-15); BUN 14 mg/dL (7-18); BUN/Creat Ratio 18.9 RATIO (10-20); Calcium,Total 8.3 mg/dL (8.5-10.1); Chloride 111 mmol/L (98-107); Creatinine, Serum 0.74 mg/dL (0.70-1.30); EST Glomerular Filtration Rate 113 mL/min (>60); Est Glom Filt Rate - Afr Amer 136 mL/min (>60); Estimated Creatinine Clearance 113.97 ml/min; Glucose 112 mg/dL (74-106); Potassium 3.7 mmol/L (3.5-5.1); Sodium Level 141 mmol/L (136-145)
[2019-03-09] MEDS: Pantoprazole Sodium 40 MG Tablet PO (10:39)
[2019-03-09] MEDS: Azithromycin 250 MG Tablet PO (10:39)
[2019-03-09] MEDS: Docusate Sodium 100 MG Capsule PO ×2 (10:39→21:00)
[2019-03-09] MEDS: Losartan Potassium 50 MG Tablet PO (10:39)
[2019-03-09] MEDS: Acetaminophen 325 MG Tablet PO (14:58)
[2019-03-09] MEDS: oxyCODONE 5 MG Tablet PO (16:38)
[2019-03-09] MEDS: Tolterodine Tartrate 4 MG CAP.SA PO (20:59)
[2019-03-09] MEDS: Atorvastatin Calcium 10 MG Tablet PO (21:00)
[2019-03-10] VITALS (12 sets, daily range): BP systolic 118–137; BP diastolic 67–91; PULSE 47–90; RESP 16–20; TEMP 36.8–37.1; O2SAT 92–97; BMI 29.8
[2019-03-10] MEDS: Losartan Potassium 50 MG Tablet PO (09:30)
[2019-03-10] MEDS: Docusate Sodium 100 MG Capsule PO ×2 (09:30→21:47)
[2019-03-10] MEDS: Azithromycin 250 MG Tablet PO (09:30)
[2019-03-10] MEDS: Pantoprazole Sodium 40 MG Tablet PO (09:30)
[2019-03-10] MEDS: predniSONE 20 MG Tablet PO ×2 (09:30→18:23)
[2019-03-10] MEDS: Tolterodine Tartrate 4 MG CAP.SA PO (09:36)
--- NOTE | 2019-03-10 11:13 | NURSING ---
Walking king at this time. Has walked king several times already today.
--- NOTE | 2019-03-10 11:39 | NURSING ---
Informed Dr. Tyson via phone that pt is urinating but urine is drk red and also passing several bright red clots. Dr. Tyson stated that pt could go home today but to have pt push fluids. This nurse informed patient and patient would like to proceed to go home.
--- NOTE | 2019-03-10 14:18 | NURSING ---
Pt complaining of urgency. I have drank a lot of water. Pt keeps dribbling bright red blood. Has gown threw three gowns and three pairs of pants. This nurse bladder scanned pt for 537ml. Pt had just been up to bathroom, attempting to void. Paged via [facility].
--- NOTE | 2019-03-10 15:59 | NURSING ---
Pt going to surgery in one hour. pt has used chlorhex wipes and all new bed linen applied to bed.
[2019-03-10] MEDS: 0.9% Normal Saline 1,000 ML 100 ML IV (16:40)
--- NOTE | 2019-03-10 16:40 | NURSING ---
Off the floor at this time. Brought to surgery
--- NOTE | 2019-03-10 17:13 | PCM.OPRPT ---
Report of Operation Date of Procedure: 03/10/19 Pre-Operative Diagnosis: Postoperative TURP bleeding Post-Operative Diagnosis: Same Surgery/Procedure Performed:: Cystoscopy evacuation of blood clots cauterization of bleeding of the prostate Description of Surgical Findings:: 63-year-old male who underwent a TURP several weeks ago he been doing relatively well and then started onset of severe bleeding went into clot retention was in the hospital irrigation the blood bleeding then stopped to the table taken back to the operating room evacuate blood clots and cauterize the prostate for bleeding. He was taken back to the operating room after smooth induction of general anesthesia he was placed in dorsolithotomy position went in the bladder with a 24 [place]ian noncontinuous flow resectoscope the entire length the urethra was normal the bladder was normal when I got inside the bladder there was a bunch of dark old blood clots used the Aceris 3D Inspection evacuator and evacuated all the clots then look to the prostate resection was nice wide open resection sphincter was intact when I stopped the irrigation some minor oozing from the prostatic bed it is cauterized the prostatic bed some at the end I did not see any more bleeding so I put a 22 [place]ibian catheter into the bladder and continuous irrigation hopefully will get the catheter out tomorrow to resume normal voiding. Type of Anesthesia:: General Drains: 22fr 3 way - Admit VTE Documentation VTE Mechan Device Prophylaxis: SCD's
--- NOTE | 2019-03-10 18:48 | PCA ---
pt off floor
[2019-03-10] MEDS: Albuterol 2.5 MG/3 ML VIAL.NEB. INHALATION (20:33)
[2019-03-10] MEDS: Atorvastatin Calcium 10 MG Tablet PO (21:47)
[2019-03-10] MEDS: 0.9% Saline Lock 10 ML Syringe IV (23:44)
[2019-03-11 00:35] VITALS: BP 122/68; PULSE 75; RESP 18; TEMP 36.9; O2SAT 97
[2019-03-11 04:28] VITALS: BP 113/76; PULSE 85; RESP 18; TEMP 36.8; O2SAT 94
--- NOTE | 2019-03-11 07:47 | DCINST_ITS ---
Discharge Diet: Light diet - advance as tolerated Discharge Activity: Return to Normal Activity May shower in (days): 1 Call your doctor if your incision/area has: Sudden Increased Bleeding Allergies/Adverse Reactions: Allergies amoxicillin Allergy (Verified 03/08/19 15:54) rash on feet after 5 days of treatment ampicillin Allergy (Verified 03/08/19 15:54) Rash on feet after 5 days rosuvastatin [From Crestor] Adverse Reaction (Severe, Verified 03/08/19 15:54) Vision changes/eye pain/knee pain ezetimibe [From Zetia] Adverse Reaction (Intermediate, Verified 03/08/19 12:27) Severe Constipation gemfibrizol Adverse Reaction (Severe, Uncoded 03/08/19 12:27) Vision changes Medications to take at Discharge losartan 50 mg tablet 50 mg PO QDAY #90 tab 11/13/18 atorvastatin 10 mg tablet 10 mg PO QHS #90 tab 03/01/19 Albuterol IH (ProAir) [Proair Hfa (SP)Vent Pts] 1 puff INHALATION Q4H PRN PRN 03/08/19 Aspirin [Aspirin, Baby] 81 mg PO DAILY@0800 03/08/19 Azithromycin 250 mg PO DAILY 03/08/19 Chelation Therapy 1 ea IV Q21D 03/08/19 Docusate Sodium [Colace] 100 mg PO DAILY PRN PRN 03/08/19 Prednisone 20 mg PO BID 03/08/19 Primary Care Physician: Dyllan Foster DO [Primary Care Provider] - Test Results: Test results from this visit will be discussed in further detail at your follow- up appointment, if applicable. Please Follow Up With: Jorje Tyson MD When: keep scheduled appt.
[2019-03-11 08:05] VITALS: BP 142/85; PULSE 87; RESP 16; TEMP 36.7; O2SAT 93
[2019-03-11] MEDS: Pantoprazole Sodium 40 MG Tablet PO (08:11)
[2019-03-11] MEDS: predniSONE 20 MG Tablet PO (08:11)
[2019-03-11] MEDS: Losartan Potassium 50 MG Tablet PO (08:11)
[2019-03-11] MEDS: Azithromycin 250 MG Tablet PO (08:11)
[2019-03-11] MEDS: Docusate Sodium 100 MG Capsule PO (08:11)
== END 2019-03-11 11:08 | disposition home or self-care (01) ==
LOC: ED 13:10 → MS3 15:50
PROVIDERS: Admitting Provider Urology; Emergency Provider Emergency Medicine; PCP Preventive Medicine Occupational Medicine; Visit Provider Urology
PROC: (CPT 52214; principal; 2019-03-10 16:15)
DX: N99.820 Postprocedural hemorrhage of a genitourinary system organ or structure following a genitourinary system procedure (principal); Y83.8 Other surgical procedures as the cause of abnormal reaction of the patient, or of later complication, without mention of misadventure at the time of the procedure; I25.10 Atherosclerotic heart disease of native coronary artery without angina pectoris; E78.5 Hyperlipidemia, unspecified; I10 Essential (primary) hypertension; I42.9 Cardiomyopathy, unspecified; R33.9 Retention of urine, unspecified; Z95.1 Presence of aortocoronary bypass graft; Z79.899 Other long term (current) drug therapy; Z79.82 Long term (current) use of aspirin; Z79.52 Long term (current) use of systemic steroids
CPT/HCPCS: 52214; 36415; 51702; 80048; 81001; 85025; 85027; 87086; 94640; 96360; 96361; 99218; 99251; 99285; J7030; A4216; G0378; G0463; J2405

== ENCOUNTER 2019-03-14 20:20 | Observation (INO) | payer BC, SELFPAY ==
[2019-03-10 16:00] VITALS: BMI 29.8
[2019-03-14 20:21] VITALS: BP 144/109; PULSE 130; RESP 18; TEMP 36.1; O2SAT 95; BMI 291.7
--- NOTE | 2019-03-14 21:18 | ED.DCSUM_ITS ---
History of Present Illness Chief Complaint: Complaint Informant: Patient Onset: Today Context: Gradual Onset Narrative: Patient is a 63-year-old male with history of BPH and TURP about 3 weeks [address] Tyson presenting for recurrent hematuria and urinary retention. Patient was actually admitted last week for gross hematuria and had an ablation done. This morning he was started to feel some fullness in his bladder but had not had any hematuria. Just prior to arrival he had large passage of clots and feeling the urge to urinate. He came immediately to the emergency room. Past Medical History - Allergies and Home Meds Allergies/Adverse Reactions: Allergies amoxicillin Allergy (Verified 03/08/19 15:54) rash on feet after 5 days of treatment ampicillin Allergy (Verified 03/08/19 15:54) Rash on feet after 5 days rosuvastatin [From Crestor] Adverse Reaction (Severe, Verified 03/08/19 15:54) Vision changes/eye pain/knee pain ezetimibe [From Zetia] Adverse Reaction (Intermediate, Verified 03/08/19 12:27) Severe Constipation gemfibrizol Adverse Reaction (Severe, Uncoded 03/08/19 12:27) Vision changes Primary Care Physician: Dyllan Foster DO [Primary Care Provider] - Past Medical History: - - HyperLipidemia, BPH Surgical History: coronary bypass surgery, TURP Smoking Status: Former smoker - Family History Maternal Family History: Family History (Last Reviewed 03/14/19 @ 22:58 by Zach Braxton MD) Father S/P CABG (coronary artery bypass graft), Onset Age: 51 CAD (coronary artery disease) Myocardial infarction Diabetes Mother CVA (cerebral vascular accident) Sister Cancer Brother Diabetes Review of Systems General: Denies: Chills, Fever, Sweats Eyes: Denies: Visual changes - bilaterally, Diplopia ENT: Denies: Rhinorrhea, Sore throat Cardiovascular: Denies: Chest pain, Palpitations Respiratory: Denies: Dyspnea, Cough, Dyspnea on exertion Gastrointestinal: Denies: Abdominal pain, Nausea, Vomiting, Diarrhea, Melena, Hematochezia Genitourinary: Reports: Dysuria, Hematuria, Frequency Musculoskeletal: Denies: Back pain, Extremity Pain Skin: Denies: Rash, Wounds Neurological: Denies: Headache, Weakness, Numbness Physical Exam Vital Signs/Narrative: Vital Signs Temp Pulse Resp BP Pulse Ox 03/14/19 20:21 97.0 F L 130 H 18 144/109 H 95 Inital Vital Signs reviewed: Yes General: Well nourished, Well developed, No Acute Distress Head: Normocephalic, Atraumatic Eyes: Perrl, EOMI. Negative for: Pale conjunctiva ENT: Moist mucous membranes, No rhinorrhea Neck: Supple, Nontender Cardiovascular: Regular rate, Regular rhythm, No murmurs Respiratory: No distress, CTA bilaterally, Chest nontender Abdomen: Soft, Nontender, Nondistended, Normal bowel sounds : - - Large clots of blood coming out of penis and Jones catheter Back: Nontender, Normal Inspection Extremities: Nontender, No edema Skin: Normal color, No rash Neurological: Alert, Oriented x3, Cranial nerves II-XII grossly intact, Normal Strength, Normal Sensation Psychological: Normal affect, Normal Mood, - - anxious Diagnostic/Tx/Re-eval Laboratory Data 03/14/19 03/14/19 03/14/19 22:40 22:40 22:40 WBC 14.6 H RBC 4.56 L Hgb 13.9 Hct 41.2 MCV 90.4 MCH 30.5 MCHC 33.7 RDW Std Deviation 44.9 H RDW Coeff of Carol 13.9 Plt Count 246 MPV 9.5 Immature Gran % (Auto) 1.300 H Neut % (Auto) 78.5 H Lymph % (Auto) 6.9 L [place] % (Auto) 9.6 Eos % (Auto) 3.2 Baso % (Auto) 0.5 Absolute Neuts (auto) 11.4 H Absolute Lymphs (auto) 1.01 Nucleated RBC % 0 PT INR Sodium 142 Potassium 4.1 Chloride 110 H Carbon Dioxide 27.0 Anion Gap 5 BUN 25 H Creatinine 1.13 Estim Creat Clear Calc 74.64 Est GFR (MDRD) Af Amer 84 Est GFR (MDRD) Non-Af 69 BUN/Creatinine Ratio 22.1 H Glucose 149 H Calcium 8.7 Urine Color Red Urine Clarity Cloudy Urine pH 6.5 Ur Specific [place] 1.005 Urine Protein 30 H Urine Glucose (UA) Normal Urine Ketones Negative Urine Occult Blood 250 H Urine Nitrite Negative Urine Bilirubin Negative Urine Urobilinogen Normal Ur Leukocyte Esterase 25 H Urine RBC > 100 SEEN Urine WBC 0-5 SEEN Ur Squamous Epith Cells 0-5 SEEN Amorphous Sediment 1+ URATE Urine Bacteria 0 SEEN Urine Mucus 0 SEEN 03/14/19 23:20 WBC RBC Hgb Hct MCV MCH MCHC RDW Std Deviation RDW Coeff of Carol Plt Count MPV Immature Gran % (Auto) Neut % (Auto) Lymph % (Auto) [place] % (Auto) Eos % (Auto) Baso % (Auto) Absolute Neuts (auto) Absolute Lymphs (auto) Nucleated RBC % PT 14.1 INR 1.1 Sodium Potassium Chloride Carbon Dioxide Anion Gap BUN Creatinine Estim Creat Clear Calc Est GFR (MDRD) Af Amer Est GFR (MDRD) Non-Af BUN/Creatinine Ratio Glucose Calcium Urine Color Urine Clarity Urine pH Ur Specific [place] Urine Protein Urine Glucose (UA) Urine Ketones Urine Occult Blood Urine Nitrite Urine Bilirubin Urine Urobilinogen Ur Leukocyte Esterase Urine RBC Urine WBC Ur Squamous Epith Cells Amorphous Sediment Urine Bacteria Urine Mucus - Medical Decision Making Patient is evaluated for recurrent hematuria. Patient is quite uncomfortable when he first comes in. Three-way Jones irrigating catheter is placed emergently. Patient has significant clots that come out. Patient then has gross red blood which does clear to pink. Patient does have continued clots however that intermittently block up the irrigating catheter and require manipulation to remove. Patient is improved however with catheter in place. Because patient continues to have clots he will be admitted again. Discussed with his urologist Dr. Tyson who does request medicine to admit with consult to him. Medicine is agreeable, Dr. Serrano. I did add on baseline labs including CBC, BMP and urinalysis. Patient's hemoglobin is stable. Urinalysis is consistent with hematuria but not infection. Patient is agreeable with plan. He stable for general medical floor at time of disposition. ED Disposition - Plan for ED Patient: Disposition: Acute Care Hospital [facility] Diagnosis: Gross hematuria, Urinary retention Referrals: Dyllan Foster DO [Primary Care Provider] -
[2019-03-14 21:48] VITALS: BP 121/91
--- NOTE | 2019-03-14 22:03 | HP.PCM_ITS ---
Problem List (1) Gross hematuria Status: Acute (2) Urinary retention Status: Acute (3) H/O coronary artery bypass surgery Status: Chronic Comment: CABG x 5 - Sequential WARD to LAD & D2, Sequential radial graft to D1 & lateral CX, free OLGA to PDA 05/15/2002 (4) Essential (primary) hypertension Status: Chronic (5) Palpitations Status: Chronic (6) Hyperlipidemia Status: Chronic Qualifiers: Hyperlipidemia type: pure hypercholesterolemia Qualified Code(s): E78.00 - Pure hypercholesterolemia, unspecified; E78.0 - Pure hypercholesterolemia (7) Cardiomyopathy in disease classified elsewhere Status: Chronic (8) Atherosclerotic heart disease of [place] coronary artery without angina pectoris Status: Chronic Qualifiers: [place] vs. transplanted heart: [place] heart Qualified Code(s): I25.10 - Atherosclerotic heart disease of [place] coronary artery without angina pectoris Comment: CABG x 5 - Sequential WARD to LAD & D2, Sequential radial graft to D1 & lateral CX, free OLGA to PDA 05/15/2002 (9) Dyspnea on exertion Status: Chronic History of Present Illness Date of Admission: 03/14/19 Chief Complaint: Gross Hematuria The patient is a 63 year old M with a significant history of ischemic cardiomyopathy; CAD status post CABG; hypertension; BPH status post TURP who presented to the emergency department with gross hematuria that started on the same day of presentation. Associated with symptoms is urinary retention; dysuria; and passing out blood clots and a yellow clot. Patient had TURP about 3 and half weeks ago. Patient was admitted at our hospital on 03/08/2019 and discharged on for gross hematuria where he had bladder irrigation and catheterization. Past Medical History Past Medical History (Chronic Problems): Chronic Problems (Last Reviewed 03/14/19 @ 22:48 by Zach Braxton MD) H/O coronary artery bypass surgery (Chronic 05/15/02) CABG x 5 - Sequential WARD to LAD & D2, Sequential radial graft to D1 & lateral CX, free OLGA to PDA 05/15/2002 Essential (primary) hypertension (Chronic) Palpitations (Chronic) Hyperlipidemia (Chronic) Cardiomyopathy in disease classified elsewhere (Chronic) Atherosclerotic heart disease of [place] coronary artery without angina pectoris (Chronic) CABG x 5 - Sequential WARD to LAD & D2, Sequential radial graft to D1 & l ateral CX, free OLGA to PDA 05/15/2002 Dyspnea on exertion (Chronic) Medical History: Medical History (Last Reviewed 03/14/19 @ 22:58 by Zach Braxton MD) Essential (primary) hypertension (Chronic) I10 Palpitations (Chronic) R00.2 Hyperlipidemia (Chronic) E78.5 Cardiomyopathy in disease classified elsewhere (Chronic) I43 Atherosclerotic heart disease of [place] coronary artery without angina pectoris (Chronic) I25.10 CABG x 5 - Sequential WARD to LAD & D2, Sequential radial graft to D1 & lateral CX, free OLGA to PDA 05/15/2002 Dyspnea on exertion (Chronic) R06.09 History of lipoma removal Allergies amoxicillin Allergy (Verified 03/08/19 15:54) rash on feet after 5 days of treatment ampicillin Allergy (Verified 03/08/19 15:54) Rash on feet after 5 days rosuvastatin [From Crestor] Adverse Reaction (Severe, Verified 03/08/19 15:54) Vision changes/eye pain/knee pain ezetimibe [From Zetia] Adverse Reaction (Intermediate, Verified 03/08/19 12:27) Severe Constipation gemfibrizol Adverse Reaction (Severe, Uncoded 03/08/19 12:27) Vision changes Home Medications: Ambulatory Orders Medication Instructions Recorded losartan 50 mg tablet 50 mg PO QDAY #90 tab 11/13/18 atorvastatin 10 mg tablet 10 mg PO QHS #90 tab 03/01/19 Albuterol IH (ProAir) [Proair Hfa 1 puff INHALATION Q4H PRN PRN 03/08/19 (SP)Vent Pts] Chelation Therapy 1 ea IV Q21D 03/08/19 Docusate Sodium [Colace] 100 mg PO DAILY PRN PRN 03/08/19 Surgical History: Surgical History (Last Reviewed 03/14/19 @ 22:58 by Zach Braxton MD) History of Achilles tendon repair Z98.890 plantar fasciatis History of arthroscopy of right knee Z98.890 History of back surgery Z98.890 History of left inguinal hernia repair Z98.890, Z87.19 History of tonsillectomy Z90.89 Surgical History: coronary bypass surgery, TURP Lives: Spouse/ Significant Other Smoking Status: Former smoker - Smoke about 20 cigars in his entire life. Reportedly the last time he smoked was about 20 years ago. Alcohol: Rare - *Family History Maternal Family History: Family History (Last Reviewed 03/14/19 @ 22:58 by Zach Braxton MD) Father S/P CABG (coronary artery bypass graft), Onset Age: 51 CAD (coronary artery disease) Myocardial infarction Diabetes Mother CVA (cerebral vascular accident) Sister Cancer Brother Diabetes Review of Systems Constitutional: Denies: Chills, Fever, Weight Change HEENT: Reports: Sinus Drainage - intermittently blood-tinged.. Denies: Head Aches, Sinus Congestion Cardiovascular: Denies: Chest Pain, Palpitations Respiratory: Denies: Cough, Shortness of breath at rest, Sputum production Gastrointestinal: Denies: Abdominal Pain, Nausea, Vomiting Genitourinary: Reports: Dysuria, Hematuria, Retention, Urgency Musculoskeletal: Denies: Joint Pain, Joint Tenderness Skin: Denies: Rash, Wounds Neurological: Denies: Numbness, Tingling, Focal weakness Psychiatric: Denies: Anxiety, Depression, Homicidal Ideations, Suicidal Ideations Hematologic/ Lymphatic: Denies: Easy Bruising, Easy Bleeding VTE Information - Inpt Only VTE Present on Admission: No VTE Mechan Device Prophylaxis: SCD's VTE Pharm Prophylaxis ordered?: No - Physical Exam Vitals/I&O's: Vital Signs Temp Pulse Resp BP Pulse Ox 97.0 F L 130 H 18 121/91 H 95 03/14/19 20:21 03/14/19 20:21 03/14/19 20:21 03/14/19 21:48 03/14/19 20:21 Oxygen Delivery Method Room Air Weight: 1003.3 kg Body Mass Index (BMI) 291.7 General: Alert, Oriented x3, Cooperative HEENT: Atraumatic, PERRLA, EOMI, Normocephalic Neck: Supple, No JVD, Negative Carotid Bruits Lungs: No rhonchi, No rales, Wheezes - Mild Cardiovascular: Regular rate, Normal S1, Normal S2, No murmurs Abdomen: Bowel Sounds Present, Soft, Non Tender Extremities: No edema, Capillary Refill Less than 3 Seconds Skin: No rashes, No breakdown Musculoskeletal: No Tenderness to Palpation of Joints or Extremities Neurological: Cranial nerves II-XII grossly intact Psych/Mental Status: Normal Affect, Appropriate Assessment/Plan All Active Problems (Last Reviewed 03/14/19 @ 22:48 by Zach Braxton MD) Gross hematuria (Acute) Urinary retention (Acute) The patient is a 63 year old M with a significant history of ischemic cardiomyopathy; CAD status post CABG; hypertension; BPH status post TURP who presented to the emergency department with re-occurrent gross more hematuria. Re-occurrent gross Started on three-way bladder irrigation emergency department. CBC and BMP ordered emergency department; follow. Get PT/INR. Emergent department doctor discussed the case with him. Reportedly, the plan will be for patient to be taken to the OR from the emergency department. Trend CBC and BMP. Hypertension On presentation the blood pressure was not within goal. Patient is n.p.o. for surgery Hydralazine as needed ordered. Ischemic cardiomyopathy with CABG Stable Echocardiogram on 08/13/2018 showed estimated ejection fraction of 50% and stage I diastolic dysfunction. Echocardiogram on 01/27/2014 showed estimated ejection fraction of 45%; borderline global hypokinesis of the left ventricle. DVT prophylaxis SCD. Code Visit Inpatient E&M: 63433 Init Hosp L3
[2019-03-14 22:22] VITALS: BP 118/76; PULSE 54; RESP 14; O2SAT 95
--- NOTE | 2019-03-14 22:26 | ED.RN ---
MANUAL IRRIGATION COMPLETED SEVERAL TIMES. MANY CLOTS RANGING FROM DIME TO QUARTER SIZE NOTED. WITH FIRST IRRIGATION WHEN PT FIRST ARRIVED OBTAINED 1000ML OF BLOOD CLOTS. PT REPORTS INCREASED COMFORT.
[2019-03-14 22:50] VITALS: BP 118/96; PULSE 54; RESP 14; O2SAT 95
[2019-03-14 22:50] LABS: Bacteria 0 SEEN /hpf (None Seen); Mucous, Urine 0 SEEN /hpf (<or=2+)
[2019-03-14 22:51] LABS: Absolute Lymphocyte Count 1.01 X10^3/uL (0.83-4.51); Absolute Neutrophil Count 11.4 X10^3/uL (2.0-7.7); Basophil# 0.08 X10^3/uL; Basophil% 0.5 % (0-1); Eosinophil# 0.46 X10^3/uL; Eosinophils% 3.2 % (0-5); Hematocrit 41.2 % (40-54); Hemoglobin 13.9 g/dL (13.0-16.5); Lymphocyte # 1.01 X10^3/ul (4.0); Lymphocyte % 6.9 % (19-41); Mean Corp Hgb Conc 33.7 g/dL (32-36); Mean Corpuscular Hgb 30.5 pg (27.0-32.0); Mean Corpuscular Volume 90.4 fL (80-94); Mean Platelet Vol. 9.5 fl (6.2-12.0); Monocyte% 9.6 % (0-10); NRBC Flagged by Analyzer 0 % (0-5); Neutrophil # 11.44 X10^3/uL (2.7-7.7); Neutrophil % 78.5 % (47-70); Platelet Count 246 K/mm3 (150-450); RBC Distribution Width CV 13.9 % (11.6-14.6); RBC Distribution Width SD 44.9 fl (35.1-43.9); Red Blood Count 4.56 M/mm3 (4.6-6.2); White Blood Count 14.6 K/mm3 (4.4-11.0)
[2019-03-14 22:52] VITALS: BP 118/75; PULSE 54; RESP 14; TEMP 36.9; O2SAT 95; BMI 291.7
[2019-03-14 22:53] LABS: Color, Urine Red (Yellow); Glucose, Dipstick Normal (Normal); Ketone-Dipstick Negative (Negative); Leukocyte Esterase-Dipstick 25 /ul (Negative); Nitrite-Dipstick Negative (Negative); Occult Blood-Urine 250 /ul (Negative); Protein-Dipstick 30 mg/dl (Negative); Specific Gravity, Urine 1.005 (1.002-1.030); Urine Bilirubin Dipstick Negative (Negative); Urine Clarity Cloudy (Clear); Urine Urobilinogen Normal (Normal); Urine pH 6.5 (5.0 - 8.0)
[2019-03-14 23:03] LABS: Amorphous Sediment 1+ URATE; Red Blood Cells-Urine > 100 SEEN /hpf (0-5); Squamous Epithelial Cells - UA 0-5 SEEN /hpf (0-5); White Blood Cells 0-5 SEEN /hpf (0-5)
[2019-03-14 23:04] LABS: Anion Gap 5 (5-15); BUN 25 mg/dL (7-18); BUN/Creat Ratio 22.1 RATIO (10-20); Calcium,Total 8.7 mg/dL (8.5-10.1); Chloride 110 mmol/L (98-107); Creatinine, Serum 1.13 mg/dL (0.70-1.30); EST Glomerular Filtration Rate 69 mL/min (>60); Est Glom Filt Rate - Afr Amer 84 mL/min (>60); Estimated Creatinine Clearance 74.64 ml/min; Glucose 149 mg/dL (74-106); Potassium 4.1 mmol/L (3.5-5.1); Sodium Level 142 mmol/L (136-145)
[2019-03-14 23:38] LABS: International Normalized Ratio 1.1; Prothrombin Time (Protime)PT. 14.1 SECONDS (11.7-14.9)
[2019-03-15] VITALS (12 sets, daily range): BP systolic 110–147; BP diastolic 75–96; PULSE 59–88; RESP 16; TEMP 36.4–36.9; O2SAT 93–98; BMI 29.6
--- NOTE | 2019-03-15 00:40 | OP.PCM_ITS ---
Report of Operation Date of Procedure: 03/15/19 Pre-Operative Diagnosis: Gross hematuria recurrent bleeding after TURP Post-Operative Diagnosis: The same Surgery/Procedure Performed:: Cystoscopy evacuation of blood clots cauterization of the prostate fossa Description of Surgical Findings:: 63-year-old male who underwent a TURP for obstruction and recurrent bleeding he is now presented again to the hospital with bright red blood and gross bleeding he was taken back to the operating room underwent general anesthesia took out the catheter went into the bladder with a 24 [place] noncontinuous flow resectoscope once inside the bladder he had a bunch of bright red blood clots throughout the bladder these were manually out Ellik out I then inspected the prostate really could not identify any obvious source of bleeding at this point he had some blood clots throughout the prostate fossa cauterize extensively throughout the fossa portion of the vail moving tissue around try to figure out there is an arterial bleeder within the prostate fossa and there was no signs of bleeding. After cauterizing the prostate extensively I then put a catheter in the bladder and continuous bladder irrigation patient anesthetic was versed take back to PACU in good condition we will continue with irrigation. Type of Anesthesia:: General
[2019-03-15 06:26] LABS: Absolute Lymphocyte Count 0.87 X10^3/uL (0.83-4.51); Absolute Neutrophil Count 9.2 X10^3/uL (2.0-7.7); Basophil# 0.05 X10^3/uL; Basophil% 0.4 % (0-1); Eosinophil# 0.19 X10^3/uL; Eosinophils% 1.7 % (0-5); Hematocrit 37.3 % (40-54); Hemoglobin 12.3 g/dL (13.0-16.5); Lymphocyte # 0.87 X10^3/ul (4.0); Lymphocyte % 7.7 % (19-41); Mean Corpuscular Hgb 29.9 pg (27.0-32.0); Mean Corpuscular Volume 90.5 fL (80-94); Mean Platelet Vol. 9.6 fl (6.2-12.0); Monocyte# 0.88 X10^3/uL; Monocyte% 7.8 % (0-10); NRBC Flagged by Analyzer 0 % (0-5); Neutrophil # 9.22 X10^3/uL (2.7-7.7); Neutrophil % 81.4 % (47-70); Platelet Count 209 K/mm3 (150-450); RBC Distribution Width CV 14.1 % (11.6-14.6); RBC Distribution Width SD 46.5 fl (35.1-43.9); Red Blood Count 4.12 M/mm3 (4.6-6.2); White Blood Count 11.3 K/mm3 (4.4-11.0)
[2019-03-15 06:30] LABS: Bedside Glucose 127 mg/dL (70-110)
[2019-03-15 06:48] LABS: Anion Gap 4 (5-15); BUN 19 mg/dL (7-18); BUN/Creat Ratio 22.3 RATIO (10-20); Calcium,Total 8.3 mg/dL (8.5-10.1); Chloride 109 mmol/L (98-107); Creatinine, Serum 0.85 mg/dL (0.70-1.30); EST Glomerular Filtration Rate 96 mL/min (>60); Est Glom Filt Rate - Afr Amer 116 mL/min (>60); Estimated Creatinine Clearance 99.22 ml/min; Glucose 130 mg/dL (74-106); Potassium 4.4 mmol/L (3.5-5.1); Sodium Level 140 mmol/L (136-145)
--- NOTE | 2019-03-15 07:42 | PCM.PN.HOSP ---
Patient Problems: Active and Suspected Problems (Last Reviewed 03/14/19 @ 22:58 by Zach Braxton MD) Gross hematuria (Acute) Urinary retention (Acute) Reason for Visit: Follow-up on hematuria Subjective: Patient was seen and examined. He denies any abdominal pain. CBI ongoing. Urine is araceli. Vitals/I&O's: Vital Signs Temp Pulse Resp BP Pulse Ox 97.7 F L 75 16 128/79 H 98 03/15/19 07:35 03/15/19 07:35 03/15/19 07:35 03/15/19 07:35 03/15/19 07:35 Oxygen Delivery Method Room Air Weight: 101.9 kg Body Mass Index (BMI) 29.6 Intake and Output for Last 24 Hours 03/13/19 03/14/19 03/15/19 23:59 23:59 23:59 Output Total 9250 / 9250 1250 / 1250 Balance -9250 / -9250 -1250 / -1250 General: Alert, Oriented x3, Cooperative, No apparent distress HEENT: Atraumatic, PERRLA, EOMI, Normocephalic Oral: Moist Mucosa Neck: Supple Lungs: Clear to auscultation, Normal air movement Cardiovascular: Regular rate, Regular Rhythm, Normal S1, Normal S2, No murmurs Abdomen: Bowel Sounds Present, Soft, Non Tender, Non-Distended, - - Continuous bladder irrigation ongoing Extremities: No edema Skin: No rashes, No breakdown Musculoskeletal: No Tenderness to Palpation of Joints or Extremities Lymphatic: No Cervical, Supraclavicular, or Inguinal Adenopathy Neurological: Cranial nerves II-XII grossly intact, Neuro grossly intact Psych/Mental Status: Normal Affect, Appropriate Laboratory Results 03/14/19 22:40: WBC 14.6 H, RBC 4.56 L, Hgb 13.9, Hct 41.2, MCV 90.4, MCH 30.5, MCHC 33.7, RDW Std Deviation 44.9 H, RDW Coeff of [place] 13.9, Plt Count 246, MPV 9.5, Immature Gran % (Auto) 1.300 H, Neut % (Auto) 78.5 H, Lymph % (Auto) 6.9 L, [place] % (Auto) 9.6, Eos % (Auto) 3.2, Baso % (Auto) 0.5, Absolute Neuts (auto) 11.4 H, Absolute Lymphs (auto) 1.01, Nucleated RBC % 0 03/14/19 22:40: Sodium 142, Potassium 4.1, Chloride 110 H, Carbon Dioxide 27.0, Anion Gap 5, BUN 25 H, Creatinine 1.13, Estim Creat Clear Calc 74.64, Est GFR (MDRD) Af Amer 84, Est GFR (MDRD) Non-Af 69, BUN/Creatinine Ratio 22.1 H, Glucose 149 H, Calcium 8.7 03/14/19 22:40: Urine Color Red, Urine Clarity Cloudy, Urine pH 6.5, Ur Specific [place] 1.005, Urine Protein 30 H, Urine Glucose (UA) Normal, Urine Ketones Negative, Urine Occult Blood 250 H, Urine Nitrite Negative, Urine Bilirubin Negative, Urine Urobilinogen Normal, Ur Leukocyte Esterase 25 H, Urine RBC > 100 SEEN, Urine WBC 0-5 SEEN, Ur Squamous Epith Cells 0-5 SEEN, Amorphous Sediment 1+ URATE, Urine Bacteria 0 SEEN, Urine Mucus 0 SEEN 03/14/19 23:20: PT 14.1, INR 1.1 03/15/19 01:10: Troponin I < 0.015 03/15/19 05:55: WBC 11.3 H, RBC 4.12 L, Hgb 12.3 L, Hct 37.3 L, MCV 90.5, MCH 29.9, MCHC 33.0, RDW Std Deviation 46.5 H, RDW Coeff of [place] 14.1, Plt Count 209, MPV 9.6, Immature Gran % (Auto) 1.000 H, Neut % (Auto) 81.4 H, Lymph % (Auto) 7.7 L, [place] % (Auto) 7.8, Eos % (Auto) 1.7, Baso % (Auto) 0.4, Absolute Neuts (auto) 9.2 H, Absolute Lymphs (auto) 0.87, Nucleated RBC % 0 03/15/19 05:55: Sodium 140, Potassium 4.4, Chloride 109 H, Carbon Dioxide 27.0, Anion Gap 4 L, BUN 19 H, Creatinine 0.85, Estim Creat Clear Calc 99.22, Est GFR (MDRD) Af Amer 116, Est GFR (MDRD) Non-Af 96, BUN/Creatinine Ratio 22.3 H, Glucose 130 H, Calcium 8.3 L 03/15/19 06:24: POC Glucose 127 H Current Medications Glucagon () 1 mg IM .X1 PRN PRN Reason: Hypoglycemia Hydralazine HCl (Apresoline Iv) 5 mg IV Q4H PRN PRN PRN Reason: SBP> 160 Dextrose (Dextrose 10%-Water) 250 mls @ 999 mls/hr IV .Q16M PRN; Protocol PRN Reason: HYPOGLYCEMIA Ondansetron HCl (Zofran) 4 mg IV Q8H PRN PRN PRN Reason: NAUSEA/VOMITING STROKE Vital Signs/Narrative: Vital Signs Temp Pulse Resp BP Pulse Ox 03/15/19 07:35 97.7 F L 75 16 128/79 H 98 03/15/19 06:33 97.9 F 79 16 110/75 97 03/15/19 03:50 97.9 F 61 16 113/76 98 Medical Necessity - Tobacco Use Smoking Status: Former smoker Assessment/Plan All Active Problems (Last Reviewed 03/14/19 @ 22:58 by Zach Braxton MD) Gross hematuria (Acute) Urinary retention (Acute) 1. Gross hematuria, history of recent TURP 3 weeks prior s/p Cystoscopy, evacuation of blood clots, cauterization of the prostate fossa on 03/15/19 Urology consulted and following 2. Hypertension/CAD status post CABG with ischemic cardiomyopathy, controlled, on Losartan, hydralazine prn 3. DVT with SCD Code Visit Inpatient E&M: 18010 Subs Hosp L2
--- NOTE | 2019-03-15 08:02 | EKG12_ITS ---
Test Reason : IRREGULAR Blood Pressure : / mmHG Vent. Rate : 081 BPM Atrial Rate : 081 BPM P-R Int : 168 ms QRS Dur : 092 ms QT Int : 378 ms P-R-T Axes : 027 014 041 degrees QTc Int : 439 ms Sinus rhythm with occasional Premature ventricular complexes and Premature atrial complexes Otherwise normal ECG When compared with ECG of 04-DEC-2018 18:00, No significant change was found Confirmed by ASHLEY AARON, MAURY ([id number]), copy editor MILLICENT RODRIGUEZ ([id number]) on 03/18/2019 11:05:40 AM Referred By: Jorje Tyson Confirmed By:CAMERON RAMIREZ MD
--- NOTE | 2019-03-15 08:18 | NURSING ---
pt heart rate irregular this am. pt has no c/o chest pain. ekg obtained and send via core txt to dr hastings.
[2019-03-15 09:17] LABS: Magnesium 2.2 mg/dL (1.6-2.6)
[2019-03-15] MEDS: Losartan Potassium 50 MG Tablet PO (09:40)
--- NOTE | 2019-03-15 12:18 | PCM.PN.BLA ---
Progress Note Taken the surgery last night for postoperative bleeding after TURP could not find the bleeder evacuated bunch of blood clots cauterized the bladder extensively and the prostate. Urine is clear today we will stop CBI he can go home with a catheter we will send him home with some antibiotics we will see him on for catheter removal. STROKE Vital Signs/Narrative: Vital Signs Temp Pulse Resp BP Pulse Ox 03/15/19 11:37 98.5 F 88 16 136/92 H 98
--- NOTE | 2019-03-15 12:20 | DCINST_ITS ---
Discharge Diet: No Restrictions, Light diet - advance as tolerated Discharge Activity: Return to Normal Activity, May Not Drive - for 2 days. Additional Activity Instructions:: Please be aware that pain medications may cause nausea. You should typically eat light foods as you take your pain medication. Pain medication may cause constipation, if this is a problem for you, please discuss with your doctor. Call your doctor if your incision/area has: Sudden Increased Bleeding Catheter: Jones to leg bag, Jones to large bag Drain: [place] Allergies/Adverse Reactions: Allergies amoxicillin Allergy (Verified 03/08/19 15:54) rash on feet after 5 days of treatment ampicillin Allergy (Verified 03/08/19 15:54) Rash on feet after 5 days rosuvastatin [From Crestor] Adverse Reaction (Severe, Verified 03/08/19 15:54) Vision changes/eye pain/knee pain ezetimibe [From Zetia] Adverse Reaction (Intermediate, Verified 03/08/19 12:27) Severe Constipation gemfibrizol Adverse Reaction (Severe, Uncoded 03/08/19 12:27) Vision changes Medications to take at Discharge losartan 50 mg tablet 50 mg PO QDAY #90 tab 11/13/18 atorvastatin 10 mg tablet 10 mg PO QHS #90 tab 03/01/19 Albuterol IH (ProAir) [Proair Hfa (SP)Vent Pts] 1 puff INHALATION Q4H PRN PRN 03/08/19 Chelation Therapy 1 ea IV Q21D 03/08/19 Docusate Sodium [Colace] 100 mg PO DAILY PRN PRN 03/08/19 Ciprofloxacin [Cipro] 500 mg PO DAILY #7 tab 03/15/19 The following prescriptions were given: Ciprofloxacin [Cipro] 500 mg PO DAILY #7 tab Transmission Status: Pending to [facility]/pharmacy #[id number] Primary Care Physician: Dyllan Foster DO [Primary Care Provider] - Test Results: Test results from this visit will be discussed in further detail at your follow- up appointment, if applicable. Please Follow Up With: Jorje Tyson MD When: please call to make an appointment.
[2019-03-15] MEDS: Docusate Sodium 100 MG Capsule PO (13:36)
--- NOTE | 2019-03-15 14:24 | PCM.DC ---
- Discharge Diagnoses Current Active Problems: Current Active and Chronic Problems (Last Reviewed 03/14/19 @ 22:58 by Zach Braxton MD) Gross hematuria (Acute) Urinary retention (Acute) Reason(s) for Visit for Discharge Instructions: Hematuria You will use the following diet at home:: Cardiac Your food should be the consistency of: Regular Your liquids should be the consistency of: Regular/Thin Discharge Activity: Return to Normal Activity, May Not Drive - for 2 days. Additional Activity Instructions:: Please be aware that pain medications may cause nausea. You should typically eat light foods as you take your pain medication. Pain medication may cause constipation, if this is a problem for you, please discuss with your doctor. Call your doctor if your incision/area has: Sudden Increased Bleeding Catheter: Jones to leg bag, Jones to large bag Drain: [place] Additional Instructions: Continue to keep yopurself hydrated. Follow-up with DR. Tyson as scheduled. Follow-up with your PCP within 2 weeks. Allergies/Adverse Reactions: Allergies amoxicillin Allergy (Verified 03/08/19 15:54) rash on feet after 5 days of treatment ampicillin Allergy (Verified 03/08/19 15:54) Rash on feet after 5 days rosuvastatin [From Crestor] Adverse Reaction (Severe, Verified 03/08/19 15:54) Vision changes/eye pain/knee pain ezetimibe [From Zetia] Adverse Reaction (Intermediate, Verified 03/08/19 12:27) Severe Constipation gemfibrizol Adverse Reaction (Severe, Uncoded 03/08/19 12:27) Vision changes Medications to take at Discharge losartan 50 mg tablet 50 mg PO QDAY #90 tab 11/13/18 atorvastatin 10 mg tablet 10 mg PO QHS #90 tab 03/01/19 Albuterol IH (ProAir) [Proair Hfa] 1 puff INHALATION Q4H PRN PRN 03/08/19 Chelation Therapy 1 ea IV Q21D 03/08/19 Docusate Sodium [Colace] 100 mg PO DAILY PRN PRN 03/08/19 Ciprofloxacin [Cipro] 500 mg PO DAILY #7 tab 03/15/19 The following prescriptions were given: Ciprofloxacin [Cipro] 500 mg PO DAILY #7 tab Transmission Status: Received by [facility]/pharmacy #[id number] Primary Care Physician: Dyllan Foster DO [Primary Care Provider] - Please follow up with your Primary Care Physician in: within 2 weeks Test Results: Test results from this visit will be discussed in further detail at your follow-up appointment, if applicable. Please Follow Up With: Jorje Tyson MD When: please call to make an appointment. Proposed Discharge Date: 03/15/19
--- NOTE | 2019-03-15 14:27 | DS.PCM_ITS ---
Discharge Date and Diagnosis - Problem List Patient Problems: Active and Suspected Problems (Last Reviewed 03/14/19 @ 22:58 by Zach Braxton MD) Gross hematuria (Acute) Urinary retention (Acute) Date of Admission: 03/14/19 Date of Discharge: 03/15/19 - Primary Discharge Diagnosis Active and Suspected Problems (Last Reviewed 03/14/19 @ 22:58 by Zach Braxton MD) Gross hematuria (Acute) Urinary retention (Acute) - Secondary Discharge Diagnosis Chronic Problems (Last Reviewed 03/14/19 @ 22:58 by Zach Bratxon MD) H/O coronary artery bypass surgery (Chronic 05/15/02) CABG x 5 - Sequential WARD to LAD & D2, Sequential radial graft to D1 & lateral CX, free OLGA to PDA 05/15/2002 Essential (primary) hypertension (Chronic) Palpitations (Chronic) Hyperlipidemia (Chronic) Cardiomyopathy in disease classified elsewhere (Chronic) Atherosclerotic heart disease of [place] coronary artery without angina pectoris (Chronic) CABG x 5 - Sequential WARD to LAD & D2, Sequential radial graft to D1 & lateral CX, free OLGA to PDA 05/15/2002 Dyspnea on exertion (Chronic) Hospital Course and Treatment None Operations: None Procedures: None Summary of Care Provided: The patient is a 63 year old M with PMHx of CAD s/p CABG, off aspirin because of GI bleed, off plavix who had a TURP done on 02/15/19 but has since been having hematuria necessitating a repeat cystoscopy, evacuation of blood clots and cauterization of bleeding of the prostate bed on 03/10/19. He came back because of similar complaints of hematuria and lower abdominal pain. He underwent cystoscopy evacuation of blood clots cauterization of the prostate fossa. Postoperatively he was continued on continuous bladder irrigation. Patient continued to have clear araceli urine. He was subsequently discharged follow-up in the outpatient with Jones Catheter in situ. Patient Problems: Active and Suspected Problems (Last Reviewed 03/14/19 @ 22:58 by Zach Braxton MD) Gross hematuria (Acute) Urinary retention (Acute) Subjective: See progress note Objective: See progress note - Physical Exam Vitals/I&O's: Vital Signs Temp Pulse Resp BP Pulse Ox 98.5 F 88 16 136/92 H 98 03/15/19 11:37 03/15/19 11:37 03/15/19 11:37 03/15/19 11:37 03/15/19 11:37 Oxygen Delivery Method Room Air Weight: 101.9 kg Body Mass Index (BMI) 29.6 Intake and Output for Last 24 Hours 03/13/19 03/14/19 03/15/19 23:59 23:59 23:59 Intake Total 400 / 400 Output Total 9250 / 9250 2850 / 2850 Balance -9250 / -9250 -2450 / -2450 Laboratory Results 03/14/19 22:40: WBC 14.6 H, RBC 4.56 L, Hgb 13.9, Hct 41.2, MCV 90.4, MCH 30.5, MCHC 33.7, RDW Std Deviation 44.9 H, RDW Coeff of Carol 13.9, Plt Count 246, MPV 9.5, Immature Gran % (Auto) 1.300 H, Neut % (Auto) 78.5 H, Lymph % (Auto) 6.9 L, [place] % (Auto) 9.6, Eos % (Auto) 3.2, Baso % (Auto) 0.5, Absolute Neuts (auto) 11.4 H, Absolute Lymphs (auto) 1.01, Nucleated RBC % 0 03/14/19 22:40: Sodium 142, Potassium 4.1, Chloride 110 H, Carbon Dioxide 27.0, Anion Gap 5, BUN 25 H, Creatinine 1.13, Estim Creat Clear Calc 74.64, Est GFR (MDRD) Af Amer 84, Est GFR (MDRD) Non-Af 69, BUN/Creatinine Ratio 22.1 H, Glucose 149 H, Calcium 8.7 03/14/19 22:40: Urine Color Red, Urine Clarity Cloudy, Urine pH 6.5, Ur Specific [place] 1.005, Urine Protein 30 H, Urine Glucose (UA) Normal, Urine Ketones Negative, Urine Occult Blood 250 H, Urine Nitrite Negative, Urine Bilirubin Negative, Urine Urobilinogen Normal, Ur Leukocyte Esterase 25 H, Urine RBC > 100 SEEN, Urine WBC 0-5 SEEN, Ur Squamous Epith Cells 0-5 SEEN, Amorphous Sediment 1+ URATE, Urine Bacteria 0 SEEN, Urine Mucus 0 SEEN 03/14/19 23:20: PT 14.1, INR 1.1 03/15/19 01:10: Troponin I < 0.015 02/07/20 05:55: WBC 11.3 H, RBC 4.12 L, Hgb 12.3 L, Hct 37.3 L, MCV 90.5, MCH 29.9, MCHC 33.0, RDW Std Deviation 46.5 H, RDW Coeff of [place] 14.1, Plt Count 209, MPV 9.6, Immature Gran % (Auto) 1.000 H, Neut % (Auto) 81.4 H, Lymph % (Auto) 7.7 L, [place] % (Auto) 7.8, Eos % (Auto) 1.7, Baso % (Auto) 0.4, Absolute Neuts (auto) 9.2 H, Absolute Lymphs (auto) 0.87, Nucleated RBC % 0 03/15/19 05:55: Sodium 140, Potassium 4.4, Chloride 109 H, Carbon Dioxide 27.0, Anion Gap 4 L, BUN 19 H, Creatinine 0.85, Estim Creat Clear Calc 99.22, Est GFR (MDRD) Af Amer 116, Est GFR (MDRD) Non-Af 96, BUN/Creatinine Ratio 22.3 H, Glucose 130 H, Calcium 8.3 L 03/15/19 05:55: Magnesium 2.2 03/15/19 06:24: POC Glucose 127 H Current Medications Atorvastatin Calcium (Lipitor) 10 mg PO QHS MARGARET Docusate Sodium (Colace) 100 mg PO DAILY PRN PRN PRN Reason: Constipation Last Admin: 03/15/19 13:36 Dose: 100 mg Documented by: Glucagon () 1 mg IM .X1 PRN PRN Reason: Hypoglycemia Hydralazine HCl (Apresoline Iv) 5 mg IV Q4H PRN PRN PRN Reason: SBP> 160 Dextrose (Dextrose 10%-Water) 250 mls @ 999 mls/hr IV .Q16M PRN; Protocol PRN Reason: HYPOGLYCEMIA Losartan Potassium (Cozaar) 50 mg PO DAILY MARGRAET Last Admin: 03/15/19 09:40 Dose: 50 mg Documented by: Ondansetron HCl (Zofran) 4 mg IV Q8H PRN PRN PRN Reason: NAUSEA/VOMITING Sodium Chloride () 10 - 40 ml IV UD PRN PRN Reason: SALINE FLUSH Discharge Diet: No Restrictions, Light diet - advance as tolerated Discharge Activity: Return to Normal Activity, May Not Drive - for 2 days. Additional Activity Instructions:: Please be aware that pain medications may cause nausea. You should typically eat light foods as you take your pain medication. Pain medication may cause constipation, if this is a problem for you, please discuss with your doctor. Call your doctor if your incision/area has: Sudden Increased Bleeding Catheter: Jones to leg bag, Jones to large bag Drain: [place] Home Medications: Medications to take at Discharge losartan 50 mg tablet 50 mg PO QDAY #90 tab 11/13/18 atorvastatin 10 mg tablet 10 mg PO QHS #90 tab 03/01/19 Albuterol IH (ProAir) [Proair Hfa] 1 puff INHALATION Q4H PRN PRN 03/08/19 Chelation Therapy 1 ea IV Q21D 03/08/19 Docusate Sodium [Colace] 100 mg PO DAILY PRN PRN 03/08/19 Ciprofloxacin [Cipro] 500 mg PO DAILY #7 tab 03/15/19 Following Prescrptions Were Given to Patient: Ciprofloxacin [Cipro] 500 mg PO DAILY #7 tab Transmission Status: Received by [facility]/pharmacy #[id number] Primary Care Physician: Dyllan Foster DO [Primary Care Provider] - Please follow up with your Primary Care Physician in: within 2 weeks Please Follow Up With: Jorje Tyson MD When: please call to make an appointment. Disposition: Home Minutes spent on discharge:: 40 Patient Condition:: Stable Medical Necessity - Tobacco Use Smoking Status: Former smoker Tobacco Use: Non-smoker Meaningful Use Info Meaningful Use Diagnoses (Choose all that apply): None applicable Code Visit Inpatient E&M: 94257 Disch Hosp
== END 2019-03-15 16:55 | disposition home or self-care (01) ==
LOC: ED 03-15 07:10 → MS3 03-15 07:10
PROVIDERS: Anesthesiology; Admitting Provider Hospitalist; Emergency Provider Emergency Medicine; PCP Preventive Medicine Occupational Medicine; Referring Provider Urology; Visit Provider Internal Medicine
PROC: 0TBB8ZX Excision of Bladder, Via Natural or Artificial Opening Endoscopic, Diagnostic (ICD-10-PCS; CPT 52001; principal; 2019-03-14 23:30)
DX: N40.1 Benign prostatic hyperplasia with lower urinary tract symptoms (principal); R31.0 Gross hematuria; R33.9 Retention of urine, unspecified; I10 Essential (primary) hypertension; I25.10 Atherosclerotic heart disease of native coronary artery without angina pectoris; E78.5 Hyperlipidemia, unspecified; I25.5 Ischemic cardiomyopathy; Z79.899 Other long term (current) drug therapy; Z95.1 Presence of aortocoronary bypass graft; Z87.891 Personal history of nicotine dependence
CPT/HCPCS: 52001; 52214; 36415; 51702; 80048; 81001; 82962; 83735; 84484; 85025; 85610; 93005; 99218; 99284; J7030; A4216; G0378; J2405

== ENCOUNTER 2019-04-01 04:01 | Inpatient (IN) | payer BC, SELFPAY ==
[2019-03-15 01:50] VITALS: BMI 29.6
[2019-04-01] VITALS (12 sets, daily range): BP systolic 121–146; BP diastolic 77–104; PULSE 81–98; RESP 16–20; TEMP 36.6–37.1; O2SAT 94–98; BMI 29.9; BMI 28.9; BMI 29.0
--- NOTE | 2019-04-01 04:26 | ED.DCSUM_ITS ---
History of Present Illness Chief Complaint: Complaint Informant: Patient, Significant Other Onset: Days - 1-2 Context: Sudden Onset Timing: Intermittent Quality: Hematuria with clots Location: Urethral Current Severity: Moderate Maximum Severity: Severe Worsened by: n/a Relieved by: n/a Associated Symptoms: Urinary retention that he resolved after he urinated out multiple clots Narrative: Patient had a TURP 1-2 months ago, had bleeding complications and several cauterizations after that, and subsequently was diagnosed with a DVT in his right lower extremity and pulmonary emboli, so now he is on Eliquis. He has had some mild bleeding off-and-on but this bleeding started yesterday and has progressively become worse along with multiple clots, he had urinary retention at home about an hour or so ago, but states with pushing hard he actually was able to urinate out a very large clot followed by multiple other small ones and he does feel better but is still bleeding when he urinates. He does not have any acute symptoms of anemia. - Past Medical History (1) Bilateral pulmonary embolism Status: Chronic (2) Deep vein thrombosis (DVT) Status: Chronic (3) Atherosclerotic heart disease of [place] coronary artery without angina pectoris Status: Chronic Comment: CABG x 5 - Sequential WARD to LAD & D2, Sequential radial graft to D1 & lateral CX, free OLGA to PDA 05/15/2002 (4) Essential (primary) hypertension Status: Chronic (5) Hyperlipidemia Status: Chronic (6) Non-ischemic cardiomyopathy Status: Chronic (7) Traumatic pneumothorax Status: Resolved Past Medical History - Allergies and Home Meds Allergies/Adverse Reactions: Allergies amoxicillin Allergy (Verified 03/08/19 15:54) rash on feet after 5 days of treatment ampicillin Allergy (Verified 03/08/19 15:54) Rash on feet after 5 days rosuvastatin [From Crestor] Adverse Reaction (Severe, Verified 03/08/19 15:54) Vision changes/eye pain/knee pain ezetimibe [From Zetia] Adverse Reaction (Intermediate, Verified 03/08/19 12:27) Severe Constipation gemfibrizol Adverse Reaction (Severe, Uncoded 03/08/19 12:27) Vision changes Primary Care Physician: Dyllan Foster DO [Primary Care Provider] - Surgical History: coronary bypass surgery, TURP Lives: Spouse/ Significant Other Smoking Status: Never smoker Review of Systems General: Denies: Chills, Fever, Sweats Eyes: Denies: Visual changes - bilaterally, Diplopia ENT: Denies: Rhinorrhea, Sore throat Cardiovascular: Reports: Chest pain - Chronic, when lies on left side. Not present at this time.. Denies: Palpitations Respiratory: Reports: Dyspnea - Chronic, when lies on left side. Not present at this time.. Denies: Cough, Dyspnea on exertion Gastrointestinal: Denies: Abdominal pain, Nausea, Vomiting, Diarrhea, Melena, Hematochezia Genitourinary: Reports: Hematuria, Frequency. Denies: Dysuria Musculoskeletal: Denies: Back pain, Swelling, Extremity Pain Skin: Denies: Rash, Wounds Neurological: Denies: Headache, Weakness, Numbness Physical Exam Vital Signs/Narrative: Vital Signs Temp Pulse Resp BP Pulse Ox 04/01/19 04:01 98.0 F 97 20 H 144/104 H 97 Inital Vital Signs reviewed: Yes General: Well nourished, Well developed, No Acute Distress Head: Normocephalic, Atraumatic Eyes: Perrl, EOMI ENT: Moist mucous membranes, No rhinorrhea Neck: Supple, Nontender Cardiovascular: Regular rate, Regular rhythm, No murmurs. Negative for: Tachycardia Respiratory: No distress, CTA bilaterally, Chest nontender Abdomen: Soft, Nontender, Nondistended, Normal bowel sounds Back: Nontender, Normal Inspection. Negative for: CVA tenderness Extremities: Nontender, No edema Skin: Normal color, No rash Neurological: Alert, Oriented x3, Cranial nerves II-XII grossly intact, Normal Strength, Normal Sensation, Normal Gait Psychological: Normal affect, Normal Mood Diagnostic/Tx/Re-eval Laboratory Tests 04/01/19 04/01/19 04/01/19 Range/Units 05:03 04:32 04:32 WBC 7.3 (4.4-11.0) K/mm3 RBC 4.16 L (4.6-6.2) M/mm3 Hgb 12.0 L (13.0-16.5) g/dL Hct 37.2 L (40-54) % MCV 89.4 (80-94) fL MCH 28.8 (27.0-32.0) pg MCHC 32.3 (32-36) g/dL RDW Std Deviation 44.0 H (35.1-43.9) fl RDW Coeff of Carol 13.5 (11.6-14.6) % Plt Count 257 (150-450) K/mm3 MPV 9.0 (6.2-12.0) fl Immature Gran % (Auto) 0.300 (0.0-0.9) % Neut % (Auto) 70.4 H (47-70) % Lymph % (Auto) 15.2 L (19-41) % [place] % (Auto) 8.1 (0-10) % Eos % (Auto) 5.3 H (0-5) % Baso % (Auto) 0.7 (0-1) % Absolute Neuts (auto) 5.2 (2.0-7.7) X10^3/uL Absolute Lymphs (auto) 1.11 (0.83-4.51) X10^3/uL Nucleated RBC % 0 (0-5) % Sodium 140 (136-145) mmol/L Potassium 4.2 (3.5-5.1) mmol/L Chloride 108 H (98-107) mmol/L Carbon Dioxide 26.0 (21.0-32.0) mmol/L Anion Gap 6 (5-15) BUN 9 (7-18) mg/dL Creatinine 0.87 (0.70-1.30) mg/dL Estim Creat Clear Calc 96.94 ml/min Est GFR (MDRD) Af Amer 113 (>60) mL/min Est GFR (MDRD) Non-Af 94 (>60) mL/min BUN/Creatinine Ratio 10.3 (10-20) RATIO Glucose 121 H (74-106) mg/dL Calcium 8.4 L (8.5-10.1) mg/dL Urine Color Red (Yellow) Urine Clarity Cloudy (Clear) Urine pH 6.5 (5.0 - 8.0) Ur Specific [place] 1.010 (1.002-1.030) Urine Protein 500 H (Negative) mg/dl Urine Glucose (UA) Normal (Normal) mg/dl Urine Ketones Negative (Negative) mg/dl Urine Occult Blood 250 H (Negative) /ul Urine Nitrite Negative (Negative) Urine Bilirubin Negative (Negative) mg/dL Urine Urobilinogen Normal (Normal) mg/dl Ur Leukocyte Esterase 25 H (Negative) /ul Urine RBC > 100 SEEN (0-5) /hpf Urine WBC 10-25 SEEN (0-5) /hpf Ur Squamous Epith Cells 0 SEEN (0-5) /hpf Urine Bacteria 0 SEEN (None Seen) /hpf Urine Mucus 0 SEEN (<or=2+) /hpf - Medical Decision Making Patient consented to a Jones catheter which was placed after Urojet lidocaine. We placed a three-way 22 [place], the patient really wanted to try to stay away from a 24 because of was very uncomfortable when he had it postoperatively before. Catheter was placed without difficulty, we did irrigate out quite a few clots, his urine cleared with irrigation but when we stopped it it became bloody again. His blood counts are stable, he is clinically stable. I discussed with Dr. Tyson. He requested we have the hospitalist admit him, he will probably take him to the OR and scope him later, however he is anticoagulated, was recently diagnosed with DVT and pulmonary embolus, and suggests that there are several possible courses here with regards to managing these problems, including the possibility of an IVC filter. He request that we hold his Eliquis/a nticoagulation for now until after he takes him to the operating room today. We will continue continuous bladder irrigation in the meantime, which the patient is tolerating well. ED Disposition - Plan for ED Patient: Disposition: Acute Care Hospital [facility] Diagnosis: Hematuria, Urinary retention, Bilateral pulmonary embolism Referrals: Dyllan Foster DO [Primary Care Provider] -
[2019-04-01] MEDS: Lidocaine Jelly 2% 20 ML Syringe (URO-JET) 20 APPLIC TOPICAL (04:30)
[2019-04-01 04:46] LABS: Absolute Lymphocyte Count 1.11 X10^3/uL (0.83-4.51); Absolute Neutrophil Count 5.2 X10^3/uL (2.0-7.7); Basophil# 0.05 X10^3/uL; Basophil% 0.7 % (0-1); Eosinophil# 0.39 X10^3/uL; Eosinophils% 5.3 % (0-5); Hematocrit 37.2 % (40-54); Lymphocyte # 1.11 X10^3/ul (4.0); Lymphocyte % 15.2 % (19-41); Mean Corp Hgb Conc 32.3 g/dL (32-36); Mean Corpuscular Hgb 28.8 pg (27.0-32.0); Mean Corpuscular Volume 89.4 fL (80-94); Monocyte# 0.59 X10^3/uL; Monocyte% 8.1 % (0-10); NRBC Flagged by Analyzer 0 % (0-5); Neutrophil # 5.16 X10^3/uL (2.7-7.7); Neutrophil % 70.4 % (47-70); Platelet Count 257 K/mm3 (150-450); RBC Distribution Width CV 13.5 % (11.6-14.6); Red Blood Count 4.16 M/mm3 (4.6-6.2); White Blood Count 7.3 K/mm3 (4.4-11.0)
[2019-04-01 05:10] LABS: Bacteria 0 SEEN /hpf (None Seen); Color, Urine Red (Yellow); Glucose, Dipstick Normal (Normal); Ketone-Dipstick Negative (Negative); Leukocyte Esterase-Dipstick 25 /ul (Negative); Mucous, Urine 0 SEEN /hpf (<or=2+); Nitrite-Dipstick Negative (Negative); Occult Blood-Urine 250 /ul (Negative); Protein-Dipstick 500 mg/dl (Negative); Squamous Epithelial Cells - UA 0 SEEN /hpf (0-5); Urine Bilirubin Dipstick Negative (Negative); Urine Clarity Cloudy (Clear); Urine Urobilinogen Normal (Normal); Urine pH 6.5 (5.0 - 8.0)
[2019-04-01 05:15] LABS: Anion Gap 6 (5-15); BUN 9 mg/dL (7-18); BUN/Creat Ratio 10.3 RATIO (10-20); Calcium,Total 8.4 mg/dL (8.5-10.1); Chloride 108 mmol/L (98-107); Creatinine, Serum 0.87 mg/dL (0.70-1.30); EST Glomerular Filtration Rate 94 mL/min (>60); Est Glom Filt Rate - Afr Amer 113 mL/min (>60); Estimated Creatinine Clearance 96.94 ml/min; Glucose 121 mg/dL (74-106); Potassium 4.2 mmol/L (3.5-5.1); Sodium Level 140 mmol/L (136-145)
[2019-04-01 05:31] LABS: Red Blood Cells-Urine > 100 SEEN /hpf (0-5); White Blood Cells 10-25 SEEN /hpf (0-5)
--- NOTE | 2019-04-01 06:30 | ED.RN ---
CONTINUOUS BLADDER IRRIGATION RUNNING. LIGHT PINK URINE IN TUBING
--- NOTE | 2019-04-01 07:00 | PCM.HP.STD ---
Problem List (1) Traumatic pneumothorax Status: Resolved (2) Hematuria Status: Acute (3) Bilateral pulmonary embolism Status: Chronic (4) Deep vein thrombosis (DVT) Status: Chronic (5) Gross hematuria Status: Acute (6) Urinary retention Status: Acute (7) Non-ischemic cardiomyopathy Status: Chronic (8) Atherosclerotic heart disease of [place] coronary artery without angina pectoris Status: Chronic Qualifiers: [place] vs. transplanted heart: [place] heart Qualified Code(s): I25.10 - Atherosclerotic heart disease of [place] coronary artery without angina pectoris Comment: CABG x 5 - Sequential WARD to LAD & D2, Sequential radial graft to D1 & lateral CX, free OLGA to PDA 05/15/2002 (9) H/O coronary artery bypass surgery Status: Chronic Comment: CABG x 5 - Sequential WARD to LAD & D2, Sequential radial graft to D1 & lateral CX, free OLGA to PDA 05/15/2002 (10) Essential (primary) hypertension Status: Chronic (11) Hyperlipidemia Status: Chronic Qualifiers: Hyperlipidemia type: pure hypercholesterolemia Qualified Code(s): E78.00 - Pure hypercholesterolemia, unspecified; E78.0 - Pure hypercholesterolemia History of Present Illness Date of Admission: 04/01/19 Chief Complaint: Hematuria on and off for 2 days The patient is a 63 year old M with recent diagnosis of DVT and PE, started Eliquis on 1 week came to ER with bleeding on and off for about 2 days. Hematuria started for short time on Monday and then stop then again last night about 8 PM and patient felt the urine retention secondary to clot obstructing the urinary stream and then in the morning he passed big clot with hematuria. Patient came to ER. [] In ED, vitals stable, blood pressure 137/64, heart rate 67/min. Initial blood work shows H&H 12/37.2, WBC 7.3 thousand, platelet count 257. K4.2. UA RBC more than 100, WBC 10-25. There is no chest x-ray and EKG done. Past Medical History Past Medical History (Chronic Problems): Chronic Problems (Last Updated 03/29/19 @ 16:24 by Jacqui Khan) Bilateral pulmonary embolism (Chronic 03/2019) Deep vein thrombosis (DVT) (Chronic 03/2019) Non-ischemic cardiomyopathy (Chronic) Atherosclerotic heart disease of [place] coronary artery without angina pectoris (Chronic) CABG x 5 - Sequential WARD to LAD & D2, Sequential radial graft to D1 & lateral CX, free OLGA to PDA 05/15/2002 H/O coronary artery bypass surgery (Chronic 05/15/02) CABG x 5 - Sequential WARD to LAD & D2, Sequential radial graft to D1 & lateral CX, free OLGA to PDA 05/15/2002 Essential (primary) hypertension (Chronic) Hyperlipidemia (Chronic) Medical History: Medical History (Last Updated 03/29/19 @ 16:24 by Jacqui Khan) Non-ischemic cardiomyopathy (Chronic) I42.8 Atherosclerotic heart disease of [place] coronary artery without angina pectoris (Chronic) I25.10 CABG x 5 - Sequential WARD to LAD & D2, Sequential radial graft to D1 & lateral CX, free OLGA to PDA 05/15/2002 Essential (primary) hypertension (Chronic) I10 Hyperlipidemia (Chronic) E78.5 Dyspnea on exertion (Resolved) R06.09 History of lipoma removal Palpitations (Resolved) R00.2 Allergies amoxicillin Allergy (Verified 03/08/19 15:54) rash on feet after 5 days of treatment ampicillin Allergy (Verified 03/08/19 15:54) Rash on feet after 5 days rosuvastatin [From Crestor] Adverse Reaction (Severe, Verified 03/08/19 15:54) Vision changes/eye pain/knee pain ezetimibe [From Zetia] Adverse Reaction (Intermediate, Verified 03/08/19 12:27) Severe Constipation gemfibrizol Adverse Reaction (Severe, Uncoded 03/08/19 12:27) Vision changes Home Medications: Ambulatory Orders Medication Instructions Recorded losartan 50 mg tablet 50 mg PO QDAY #90 tab 11/13/18 atorvastatin 10 mg tablet 10 mg PO QHS #90 tab 03/01/19 Albuterol IH (ProAir) [Proair Hfa] 1 puff INHALATION Q4H PRN PRN 03/08/19 Chelation Therapy 1 ea IV Q21D 03/08/19 Docusate Sodium [Colace] 100 mg PO DAILY PRN PRN 03/08/19 apixaban 5 mg tablet 10 mg PO BID 03/29/19 Surgical History: Surgical History (Last Updated 03/29/19 @ 16:29 by Jacqui Khan) H/O coronary artery bypass surgery (Chronic) Onset Date: 05/15/02 Z95.1 CABG x 5 - Sequential WARD to LAD & D2, Sequential radial graft to D1 & lateral CX, free OLGA to PDA 05/15/2002 History of transurethral resection of prostate Onset Date: 03/2019 Z98.890, Z90.79 History of Achilles tendon repair Z98.890 plantar fasciatis History of arthroscopy of right knee Z98.890 History of back surgery Z98.890 History of left inguinal hernia repair Z98.890, Z87.19 History of tonsillectomy Z90.89 Surgical History: coronary bypass surgery, TURP Lives: Spouse/ Significant Other Smoking Status: Never smoker Review of Systems Constitutional: Reports: Chills. Denies: Fever, Weight Change HEENT: Denies: Head Aches, Sinus Congestion, Sinus Drainage Cardiovascular: Denies: Chest Pain, Palpitations Respiratory: Denies: Cough, Shortness of breath at rest, Sputum production Gastrointestinal: Denies: Abdominal Pain, Nausea, Vomiting Genitourinary: Reports: Hematuria, Hesitancy, Retention. Denies: Dysuria Musculoskeletal: Reports: Joint Pain. Denies: Joint Tenderness Skin: Denies: Rash, Wounds Neurological: Denies: Numbness, Tingling, Focal weakness Psychiatric: Denies: Anxiety, Depression, Homicidal Ideations, Suicidal Ideations Hematologic/ Lymphatic: Denies: Easy Bruising, Easy Bleeding VTE Information - Inpt Only VTE Present on Admission: Yes VTE Mechan Device Prophylaxis: SCD's VTE Pharm Prophylaxis ordered?: No Reason prophylaxis not ordered:: Medical Contraindication - hematuria Patient Problems: Active and Suspected Problems (Last Updated 03/29/19 @ 16:24 by Jacqui Khan) Hematuria (Acute) Urinary retention (Acute) - Physical Exam Vitals/I&O's: Vital Signs Temp Pulse Resp BP Pulse Ox 98.0 F 83 20 H 138/90 H 94 04/01/19 04:01 04/01/19 06:14 04/01/19 06:14 04/01/19 06:14 04/01/19 06:14 Oxygen Delivery Method Room Air Weight: 227 lb 1.218 oz Body Mass Index (BMI) 29.9 General: Alert, Oriented x3, Cooperative HEENT: Atraumatic, PERRLA, EOMI, Normocephalic Oral: No Gingival or Mucosal Lesions/ Ulcerations, Dry Mucosa Neck: Supple, No JVD, Negative Carotid Bruits Lungs: Clear to auscultation, No rhonchi, No wheeze, No rales, Diminished - Air entry diminished bilateral lung bases Cardiovascular: Regular rate, Regular Rhythm, Normal S1, Normal S2, No murmurs Abdomen: Bowel Sounds Present, Soft, Non Tender, Non-Distended Extremities: No edema, Capillary Refill Less than 3 Seconds, Edema Skin: No rashes, No breakdown Musculoskeletal: No Tenderness to Palpation of Joints or Extremities, Arthritic Changes Lymphatic: No Cervical, Supraclavicular, or Inguinal Adenopathy Neurological: Cranial nerves II-XII grossly intact, Deep Tendon Reflexes 2+/4 and Symmetrical, Neuro grossly intact Psych/Mental Status: Normal Affect, Appropriate Laboratory Results 04/01/19 04:32: WBC 7.3, RBC 4.16 L, Hgb 12.0 L, Hct 37.2 L, MCV 89.4, MCH 28.8, MCHC 32.3, RDW Std Deviation 44.0 H, RDW Coeff of Carol 13.5, Plt Count 257, MPV 9.0, Immature Gran % (Auto) 0.300, Neut % (Auto) 70.4 H, Lymph % (Auto) 15.2 L, [place] % (Auto) 8.1, Eos % (Auto) 5.3 H, Baso % (Auto) 0.7, Absolute Neuts (auto) 5.2, Absolute Lymphs (auto) 1.11, Nucleated RBC % 0 04/01/19 04:32: Sodium 140, Potassium 4.2, Chloride 108 H, Carbon Dioxide 26.0, Anion Gap 6, BUN 9, Creatinine 0.87, Estim Creat Clear Calc 96.94, Est GFR (MDRD) Af Amer 113, Est GFR (MDRD) Non-Af 94, BUN/Creatinine Ratio 10.3, Glucose 121 H, Calcium 8.4 L 04/01/19 05:03: Urine Color Red, Urine Clarity Cloudy, Urine pH 6.5, Ur Specific [place] 1.010, Urine Protein 500 H, Urine Glucose (UA) Normal, Urine Ketones Negative, Urine Occult Blood 250 H, Urine Nitrite Negative, Urine Bilirubin Negative, Urine Urobilinogen Normal, Ur Leukocyte Esterase 25 H, Urine RBC > 100 SEEN, Urine WBC 10-25 SEEN, Ur Squamous Epith Cells 0 SEEN, Urine Bacteria 0 SEEN, Urine Mucus 0 SEEN Assessment/Plan All Active Problems (Last Updated 03/29/19 @ 16:24 by Jacqui Khan) Traumatic pneumothorax (Resolved) Hematuria (Acute) Gross hematuria (Acute) Urinary retention (Acute) Dyspnea on exertion (Resolved) Palpitations (Resolved) The patient is a 63 year old M with recent diagnosis of DVT and PE, started Eliquis on 1 week came to ER with bleeding on and off for about 2 days. Hematuria started for short time on Monday and then stop then again last night about 8 PM and patient felt the urine retention secondary to clot obstructing the urinary stream and then in the morning he passed big clot with hematuria. Patient came to ER. Was started on continuous bladder irrigation with triple-lumen catheter [] In ED, vitals stable, blood pressure 137/64, heart rate 67/min. Initial blood work shows H&H 12/37.2, WBC 7.3 thousand, platelet count 257. K4.2. UA RBC more than 100, WBC 10-25. There is no chest x-ray and EKG done. 1. Acute hematuria with clot retention on Eliquis: Patient is being admitted on [facility]. Patient current on continuous bladder irrigation. Seen by Dr. Tyson in ED. Monitor H&H every [address] Dyllan Mancini is been consulted to evaluate for temporary IVC filter. If no further bleeding or decision for not putting IVC filter is made, can challenge Eliquis 5 mg in the evening. Patient had TURP done on 02/15/2019 and had admitted twice for hematuria 02/18 2019 and 03/14/2019. 2. Recent DVT and PE about a week ago: Patient completed 1 week of Eliquis 10 mg twice daily and now scheduled for 5 mg twice daily. Currently hold it as mentioned above. Patient also has history of traumatic pneumothorax but did not require chest tube and reinflated on its own. Chest x-ray and EKG ordered 3. Cardiac conditions: Coronary artery disease status post 5 vessel CABG with ischemic cardiomyopathy: Patient has appointment with Dr. cross in May. Currently no chest pain or shortness of breath. Continue home medications. 4. Other comorbidities: Hypertension and dyslipidemia: Currently blood patient is acceptable range. DVT prophylaxis: Bilateral SCDs Laboratory Results 04/01/19 04:32: WBC 7.3, RBC 4.16 L, Hgb 12.0 L, Hct 37.2 L, MCV 89.4, MCH 28.8, MCHC 32.3, RDW Std Deviation 44.0 H, RDW Coeff of [place] 13.5, Plt Count 257, MPV 9.0, Immature Gran % (Auto) 0.300, Neut % (Auto) 70.4 H, Lymph % (Auto) 15.2 L, [place] % (Auto) 8.1, Eos % (Auto) 5.3 H, Baso % (Auto) 0.7, Absolute Neuts (auto) 5.2, Absolute Lymphs (auto) 1.11, Nucleated RBC % 0 04/01/19 04:32: Sodium 140, Potassium 4.2, Chloride 108 H, Carbon Dioxide 26.0, Anion Gap 6, BUN 9, Creatinine 0.87, Estim Creat Clear Calc 96.94, Est GFR (MDRD) Af Amer 113, Est GFR (MDRD) Non-Af 94, BUN/Creatinine Ratio 10.3, Glucose 121 H, Calcium 8.4 L 04/01/19 05:03: Urine Color Red, Urine Clarity Cloudy, Urine pH 6.5, Ur Specific [place] 1.010, Urine Protein 500 H, Urine Glucose (UA) Normal, Urine Ketones Negative, Urine Occult Blood 250 H, Urine Nitrite Negative, Urine Bilirubin Negative, Urine Urobilinogen Normal, Ur Leukocyte Esterase 25 H, Urine RBC > 100 SEEN, Urine WBC 10-25 SEEN, Ur Squamous Epith Cells 0 SEEN, Urine Bacteria 0 SEEN, Urine Mucus 0 SEEN Code Visit Inpatient E&M: 55218 Init Hosp L3
--- NOTE | 2019-04-01 07:20 | PCM.CONS.B ---
- Consult Date of Consult: 04/01/19 - Reason for Consult Recurrent gross hematuria after TURP, 63-year-old male had a very large prostate history of prior surgery with a greenlight laser has history of recurrent bleeding and bladder stone underwent a TURP about a month ago. Initially did really well with this had very little blood in the urine then was admitted 2 times with gross hematuria both required trip to the operating room to cauterize bleeding from the prostate and evacuate blood clots. Last time we sent home with a catheter to let everything heal up. I took out the catheter last week the urine was clear. He then presented to his family doctor complaining of calf swelling in the right leg and also some chest tightness he underwent a work-up that was found to have a DVT in the right calf and also multiple small pulmonary emboli reported on a CT scan of the chest at an outside hospital so he was started on Eliquis. Now he presents a week later after this with gross hematuria. He is certainly in a difficult situation with recurrent gross hematuria recent diagnosis of DVT in the pulmonary embolism. He is can be admitted for continuous irrigation working to continue with low-dose anticoagulation per hospitalist. We could consider placing an IVC filter and stopping all anticoagulation as another option. Another option would be to have the patient transferred to have his prostate embolized to stop the bleeding. I could also take the patient back for surgery with a monopolar resectoscope and cauterize the patient since bladder with a monopolar cautery. For now we will continue with irrigation and admission to the hospital I will follow along.
--- NOTE | 2019-04-01 08:01 | EKG12_ITS ---
Test Reason : PRE-OP Blood Pressure : / mmHG Vent. Rate : 081 BPM Atrial Rate : 081 BPM P-R Int : 162 ms QRS Dur : 100 ms QT Int : 382 ms P-R-T Axes : 023 011 023 degrees QTc Int : 443 ms Sinus rhythm with Premature atrial complexes Otherwise normal ECG No previous ECGs available Confirmed by LUIS PRICE ([id number]), graphic editor CHRIS PIERSON ([id number] on 04/04/2019 10:24:28 AM Referred By: LOLA Confirmed By:LUIS PRICE
--- NOTE | 2019-04-01 08:05 | RAD_ITS ---
EXAM DESCRIPTION: PORTABLE AP CHEST CLINICAL HISTORY: 63 years Male, SOB SOB COMPARISON: Previous portable chest obtained on 11/08/2018 FINDINGS: Sternotomy sutures are noted in place. The rest of the thorax is intact.The heart and mediastinum appear to be within normal limits. The lungs appear to be well areated without evidence of pneumonic consolidation or pleural effusion. RAD/Chest 1 View (Portable) IMPRESSION: No acute pathology. Electronically Signed: Eddi Yates, at 9:04 EST Tel , Service support ,
--- NOTE | 2019-04-01 08:27 | VDLE_ITS ---
Reason For Study: Pulmonary embolism RIGHT LEFT GSV is normal. GSV is normal. CFV is compressible, spontaneous, phasic, CFV is compressible, spontaneous, phasic, competent and demonstrates normal competent, and demonstrates normal augmentation. augmentation. FV is compressible, spontaneous, phasic, FV is compressible, spontaneous, phasic, competent and demonstrates normal competent and demonstrates normal augmentation. augmentation. POP V is compressible, spontaneous, phasic, POP V is compressible, spontaneous, phasic, competent and demonstrates normal competent and demonstrates normal augmentation. augmentation. T/P Trunk is compressible. T/P Trunk is compressible. PTV is compressible. PTV is compressible. Acute deep vein thrombosis is noted in the LT PerV is compressible. right peroneal vein. Acute deep vein thrombosis is noted in the right soleus vein. Procedure Exam performed portable in patient room. A preliminary report was called and/or faxed to [facility] and [facility]. Interpretation Summary There is no evidence of left lower extremity deep vein thrombosis. Left great saphenous vein appears patent and compressible segmentally. Acute deep venous thrombosis right peroneal and soleus veins Patent and compressible right great saphenous vein Ordering Physician: Mayito Mosher Referring Physician: Dyllan Foster Performed By: Beth Lott RVT
[2019-04-01 08:34] LABS: Magnesium 2.3 mg/dL (1.6-2.6)
[2019-04-01] MEDS: 0.9% Normal Saline 1,000 ML 50 ML IV (08:44)
--- NOTE | 2019-04-01 09:15 | PCM.CONS.GEN ---
Problem List (1) Bilateral pulmonary embolism Status: Chronic (2) Deep vein thrombosis (DVT) Status: Chronic (3) Gross hematuria Status: Acute Reason for Consult Date of Consultation: 04/01/19 Reason for Consultation: Contraindication to anticoagulation. In need of an inferior vena cava filter placement. History of Present Illness: The patient is a 63 year old M who presents with gross hematuria. Patient was recently diagnosed with right lower extremity DVT and multiple small lung emboli last Monday. Patient stated he had swelling in his right calf. He was evaluated by his PCP who sent him to [facility] for lower extremity duplex. Patient was also having minimal amount of shortness of breath which lead to a chest CT which demonstrated the right lung emboli. Patient was started on Eliquis 5 mg twice daily for 1 week and then was to go to 2.5 mg twice daily. In the meantime, the patient has been treated for a very large prostate by Dr. Tyson. At the end of February, patient had a TURP. Prior to this procedure he has had a greenlight laser. Patient has had intermittent clotting and bleeding when urinating. He has had 2 additional hospitalizations for clotting/bleeding and he has returned to surgery both hospitalizations. Patient has had a history of CABG x 5 previously. He denies previous IVC filter placement. Patient states he is unsure if he would like the filter placed or if he should be transferred to [facility]. Past Medical History Past Medical History (Chronic Problems): Chronic Problems (Last Reviewed 04/01/19 @ 10:13 by Abril Yan PA-C) Bilateral pulmonary embolism (Chronic 03/2019) Deep vein thrombosis (DVT) (Chronic 03/2019) Non-ischemic cardiomyopathy (Chronic) Atherosclerotic heart disease of [place] coronary artery without angina pectoris (Chronic) CABG x 5 - Sequential WARD to LAD & D2, Sequential radial graft to D1 & lateral CX, free OLGA to PDA 05/15/2002 H/O coronary artery bypass surgery (Chronic 05/15/02) CABG x 5 - Sequential WARD to LAD & D2, Sequential radial graft to D1 & lateral CX, free OLGA to PDA 05/15/2002 Essential (primary) hypertension (Chronic) Hyperlipidemia (Chronic) Medical History: Medical History (Last Reviewed 04/01/19 @ 10:13 by Abril Yan PA-C) Non-ischemic cardiomyopathy (Chronic) I42.8 Atherosclerotic heart disease of [place] coronary artery without angina pectoris (Chronic) I25.10 CABG x 5 - Sequential WARD to LAD & D2, Sequential radial graft to D1 & lateral CX, free OLGA to PDA 05/15/2002 Essential (primary) hypertension (Chronic) I10 Hyperlipidemia (Chronic) E78.5 Dyspnea on exertion (Resolved) R06.09 History of lipoma removal Palpitations (Resolved) R00.2 Allergies amoxicillin Allergy (Verified 03/08/19 15:54) rash on feet after 5 days of treatment ampicillin Allergy (Verified 03/08/19 15:54) Rash on feet after 5 days rosuvastatin [From Crestor] Adverse Reaction (Severe, Verified 03/08/19 15:54) Vision changes/eye pain/knee pain ezetimibe [From Zetia] Adverse Reaction (Intermediate, Verified 03/08/19 12:27) Severe Constipation ciprofloxacin [From Cipro] Adverse Reaction (Verified 04/01/19 08:24) Pain in joints gemfibrizol Adverse Reaction (Severe, Uncoded 03/08/19 12:27) Vision changes Home Medications: Ambulatory Orders Medication Instructions Recorded losartan 50 mg tablet 50 mg PO QDAY #90 tab 11/13/18 atorvastatin 10 mg tablet 10 mg PO QHS #90 tab 03/01/19 Albuterol IH (ProAir) [Proair Hfa] 1 puff INHALATION Q4H PRN PRN 03/08/19 Chelation Therapy 1 ea IV Q21D 03/08/19 Docusate Sodium [Colace] 100 mg PO DAILY PRN PRN 03/08/19 apixaban 5 mg tablet 10 mg PO BID 03/29/19 Surgical History: Surgical History (Last Reviewed 04/01/19 @ 10:13 by Abril Yan PA-C) H/O coronary artery bypass surgery (Chronic) Onset Date: 05/15/02 Z95.1 CABG x 5 - Sequential WARD to LAD & D2, Sequential radial graft to D1 & lateral CX, free OLGA to PDA 05/15/2002 History of transurethral resection of prostate Onset Date: 03/2019 Z98.890, Z90.79 History of Achilles tendon repair Z98.890 plantar fasciatis History of arthroscopy of right knee Z98.890 History of back surgery Z98.890 History of left inguinal hernia repair Z98.890, Z87.19 History of tonsillectomy Z90.89 Surgical History: coronary bypass surgery, TURP Lives: Spouse/ Significant Other Smoking Status: Never smoker - *Family History Maternal Family History: Family History (Last Reviewed 04/01/19 @ 10:14 by Abril Yan PA-C) Father S/P CABG (coronary artery bypass graft), Onset Age: 51 CAD (coronary artery disease) Myocardial infarction Diabetes Mother CVA (cerebral vascular accident) Sister Cancer Brother Diabetes History Items: No pertinent history Paternal Family History: Family History (Last Reviewed 04/01/19 @ 10:14 by Abril Yan PA-C) Father S/P CABG (coronary artery bypass graft), Onset Age: 51 CAD (coronary artery disease) Myocardial infarction Diabetes Mother CVA (cerebral vascular accident) Sister Cancer Brother Diabetes History Items: No pertinent history Review of Systems Constitutional: Denies: Chills, Fever, Weight Change HEENT: Denies: Head Aches, Sinus Congestion, Sinus Drainage Cardiovascular: Denies: Chest Pain, Palpitations Respiratory: Reports: Cough Gastrointestinal: Denies: Abdominal Pain, Nausea, Vomiting Genitourinary: Reports: Hematuria Musculoskeletal: Denies: Joint Pain, Joint Tenderness Skin: Denies: Rash, Wounds Neurological: Denies: Numbness, Tingling, Focal weakness Psychiatric: Denies: Anxiety, Depression, Homicidal Ideations, Suicidal Ideations Hematologic/ Lymphatic: Reports: Anemia, Easy Bleeding, Hx of blood clot Patient Problems: Active and Suspected Problems (Last Reviewed 04/01/19 @ 10:13 by Abril Yan PA-C) Hematuria (Acute) Urinary retention (Acute) - Physical Exam Vitals/I&O's: Vital Signs Temp Pulse Resp BP Pulse Ox 97.8 F 81 18 146/94 H 98 04/01/19 07:57 04/01/19 07:57 04/01/19 07:57 04/01/19 07:57 04/01/19 07:57 Oxygen Delivery Method Room Air Weight: 219 lb 6.4 oz Body Mass Index (BMI) 28.9 Intake and Output for Last 24 Hours 03/30/19 03/31/19 04/01/19 23:59 23:59 23:59 Output Total 3500 / 3500 Balance -3500 / -3500 General: Alert, Oriented x3, Cooperative, - - Fruit punch colored urine within the nazario bag HEENT: Atraumatic, PERRLA, EOMI, Normocephalic Neck: Supple, No JVD, Negative Carotid Bruits Lungs: Clear to auscultation, Normal air movement Cardiovascular: Regular rate, No murmurs Abdomen: Bowel Sounds Present, Soft, Non Tender Extremities: No edema, Capillary Refill Less than 3 Seconds Skin: No rashes, No breakdown Musculoskeletal: No Tenderness to Palpation of Joints or Extremities Neurological: Neuro grossly intact Psych/Mental Status: Normal Affect, Appropriate Laboratory Results 04/01/19 04:32: WBC 7.3, RBC 4.16 L, Hgb 12.0 L, Hct 37.2 L, MCV 89.4, MCH 28.8, MCHC 32.3, RDW Std Deviation 44.0 H, RDW Coeff of Carol 13.5, Plt Count 257, MPV 9.0, Immature Gran % (Auto) 0.300, Neut % (Auto) 70.4 H, Lymph % (Auto) 15.2 L, [place] % (Auto) 8.1, Eos % (Auto) 5.3 H, Baso % (Auto) 0.7, Absolute Neuts (auto) 5.2, Absolute Lymphs (auto) 1.11, Nucleated RBC % 0 04/01/19 04:32: Sodium 140, Potassium 4.2, Chloride 108 H, Carbon Dioxide 26.0, Anion Gap 6, BUN 9, Creatinine 0.87, Estim Creat Clear Calc 96.94, Est GFR (MDRD) Af Amer 113, Est GFR (MDRD) Non-Af 94, BUN/Creatinine Ratio 10.3, Glucose 121 H, Calcium 8.4 L 04/01/19 05:03: Urine Color Red, Urine Clarity Cloudy, Urine pH 6.5, Ur Specific [place] 1.010, Urine Protein 500 H, Urine Glucose (UA) Normal, Urine Ketones Negative, Urine Occult Blood 250 H, Urine Nitrite Negative, Urine Bilirubin Negative, Urine Urobilinogen Normal, Ur Leukocyte Esterase 25 H, Urine RBC > 100 SEEN, Urine WBC 10-25 SEEN, Ur Squamous Epith Cells 0 SEEN, Urine Bacteria 0 SEEN, Urine Mucus 0 SEEN 04/01/19 08:15: Magnesium 2.3 Current Medications Acetaminophen (Tylenol) 650 mg PO Q6H PRN PRN PRN Reason: Pain Score 1-10/Temp > 100.7 F Albuterol Sulfate (Ventolin Aerosols) 2.5 mg INHALATION Q2H PRN PRN PRN Reason: Shortness of Breath/Wheezing Atorvastatin Calcium (Lipitor) 10 mg PO QHS MARGARET Glucagon () 1 mg IM .X1 PRN PRN Reason: Hypoglycemia Guaifenesin (Robitussin) 20 ml PO Q4H PRN PRN PRN Reason: COUGH Sodium Chloride () 1,000 mls @ 50 mls/hr IV .Q20H MARGARET Last Admin: 04/01/19 08:44 Dose: 50 mls/hr Documented by: Dextrose (Dextrose 10%-Water) 250 mls @ 999 mls/hr IV .Q16M PRN; Protocol PRN Reason: HYPOGLYCEMIA Sodium Chloride () 250 mls @ 15 mls/hr IV .[id number] PRN PRN Reason: Saline Flush Sodium Chloride () 250 mls @ 15 mls/hr IV .[id number] PRN PRN Reason: Additional IVPB Infusion Losartan Potassium (Cozaar) 50 mg PO DAILY MARGARET Morphine Sulfate () 2 mg IV Q3H PRN PRN PRN Reason: Pain Score 6-10/10 Ondansetron HCl (Zofran) 4 mg IV Q8H PRN PRN PRN Reason: NAUSEA/VOMITING Oxycodone HCl (Oxyir) 5 mg PO Q4H PRN PRN PRN Reason: Pain Score 4-5/10 Senna/Docusate Sodium (Senokot-S, Rula-Colace) 2 tablet PO BID PRN PRN PRN Reason: Constipation Sodium Chloride () 10 - 40 ml IV UD PRN PRN Reason: SALINE FLUSH Assessment/Plan All Active Problems (Last Reviewed 04/01/19 @ 10:13 by Abril Yan PA-C) Traumatic pneumothorax (Resolved) Hematuria (Acute) Gross hematuria (Acute) Urinary retention (Acute) Dyspnea on exertion (Resolved) Palpitations (Resolved) I have been consulted in conjunction with Dr. Mancini Impression: Acute right lower extremity DVT and pulmonary emboli. Increased Hematuria with Eliquis. Plan: Patient was discussed with Dr. Mancini. Dr. 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 Procedure details were discussed with the patient. At this time, patient and family are undecided if they would like to go through with an IVC filter placement. I have answered the patient's questions as thoroughly as I could possible. I have provided the patient and his with recommendations. We have canceled the procedure for today, as the patient would like to discuss again with Dr. Mosher as well as Dr. Lizama and Dr. Antony. We will await the patient's decision on if he would like to proceed with the proposed procedure. I tentatively have the IVC filter booked for tomorrow at 11:[address] Mancini. Thank you for allowing us to participate in this patient's care. Code Visit Office Visits / Consults: [id number] IP Consult L3
--- NOTE | 2019-04-01 12:10 | CASEMGMT ---
RN DENYS Face to Face with patient for initial transition planning/care coordination assessment. RN CM introduced self and role at [facility]. Patient lying in bed, alert and oriented, at bedside. Patient willing to participate in assessment and is able to answer all questions appropriately. Care providers, pharmacy, and demographics verified. Patient wishes to discharge home, denies need for home health at this time. Patient states he has no further needs or concerns at this time. CM to follow for discharge planning needs that may arise. PCP: Kristin Specialists: Arpan, oncologist; Jah urologist Preferred Pharmacy: [facility] Insurance: [place] Prescription Benefit: yes Living Will/HPOA: none LNOK: Living Arrangements: Patient lives in 1 story home with 1 step to enter the home. Patient independent at home. Transportation: self/ DME/HHC: Patient denies any DME or previous HHC. Disposition Plan: Patient to discharge home with family support and follow-up plans in place. Beth MCKEE, RN, CM
[2019-04-01] MEDS: Losartan Potassium 50 MG Tablet PO (12:15)
[2019-04-01 13:49] LABS: Hematocrit 38.3 % (40-54); Hemoglobin 12.4 g/dL (13.0-16.5)
--- NOTE | 2019-04-01 14:49 | CHAPLAIN ---
Type of Pastoral Visit _x__ Initial Visit ___ Follow-up Visit ___ On-call Visit ___ General Patient Visit ___ Spiritual Assessment ___ Family Conference ___ Bereavement ___ Rapid Response ___ Code Blue ___ Other (describe below) Pastoral Care Referral From _x__ Patient ___ Family ___ Nurse ___ Physician ___ Fruit Picker ___ Business Reporting Developer ___ Other (describe below) Sacrament/Intervention _x__ Active listening ___ Anointing ___ Advent ___ Bereavement ___ Communion _x__ Judith exploration ___ _x__ Life review _x__ Prayer ___ Reconciliation ___ Sacrament of Sick ___ Supportive presence ___ Wedding ___ Other (describe below) Pastoral Comments
[2019-04-01] MEDS: Albuterol 2.5 MG/3 ML VIAL.NEB. INHALATION (15:12)
--- NOTE | 2019-04-01 16:38 | CON.PCM_ITS ---
Subjective Date of Service:: 04/01/19 Chief Complaint: Hematuria on DOAC History of Present Illness: Mr. Edmundo Coley is a pleasant 63-year-old man with a past medical history positive for coronary artery disease, hypertension hyperlipidemia and cardiomyopathy who underwent a TURP on 02/15/2019 under the care of Dr. Tyson. Initially, he describes his postoperative course is uneventful. However, he subsequently experienced 2 episodes of bleeding requiring hospitalizations for bladder irrigation and cauterization on 03/10/2019 and most recently on 03/15/2019. He then developed right lower extremity edema. Per patient self-report venous Doppler of right lower extremity on 03/25/2019 revealed DVT (unsure to what extent or vessels were involved) and underwent CTA chest which showed more than 1 pulmonary embolism. The studies were done at [facility], reports of which are not available to me at this time. He began Eliquis twice daily on 03/25/19. Patient reports he began noting hematuria last evening approximately 8 PM, developed into passing large clots and urinary retention. Thus, he presented to [facility] emergency department early this morning. States he was not engaging in heavy activity yesterday citing he sat in his recliner chair for most of the day. Patient does also share that he has been receiving chelation IV treatments every 3 weeks x1 year [place] homeopath physician [place], last infusion was February 182019. States he is not certain what is in the IV bag that he receives although he is aware that it contains EDTA, vitamins, magnesium and sodium bicarb. Patient underwent venous Doppler of bilateral lower extremities earlier this afternoon?reports pending. Patient is not a smoker. He has no family history of hypercoagulability. Sister recently diagnosed with follicular lymphoma and father with h/o some blood cancer. Past Medical History: Chronic Problems (Last Reviewed 04/01/19 @ 10:13 by Abril Yan PA-C) Bilateral pulmonary embolism (Chronic 03/2019) Deep vein thrombosis (DVT) (Chronic 03/2019) Non-ischemic cardiomyopathy (Chronic) Atherosclerotic heart disease of [place] coronary artery without angina pectoris (Chronic) CABG x 5 - Sequential WARD to LAD & D2, Sequential radial graft to D1 & lateral CX, free OLGA to PDA 05/15/2002 H/O coronary artery bypass surgery (Chronic 05/15/02) CABG x 5 - Sequential WARD to LAD & D2, Sequential radial graft to D1 & lateral CX, free OLGA to PDA 05/15/2002 Essential (primary) hypertension (Chronic) Hyperlipidemia (Chronic) Past Medical/Surgical History: Past Medical History - Most Recent Inpatient Visit Past Medical History Start: 04/01/19 07:54 Text: Status: Complete Freq: ONCE Protocol: Document 04/01/19 08:46 ML (Rec: 04/01/19 08:59 ML [id number]) BMI Required to complete PMH What is Patient's BMI 28.9 Past Medical History Unable History Recalled No Query Text:Pt Unable/Family Not Present Neurologic Medical History Hx Stroke/TIA No Hx Dementia/Alzheimer's No Hx Parkinson's Disease No Hx Seizures No Hx Multiple Sclerosis No Hx Migraines No Cardiac Medical History VTE Present on Admission Yes Hx of Deep Vein Thrombosis/VTE/PE Yes: RLE DVT, PE- dx 1 week ago, monday Hx Hypertension Yes Hx Chest Pain/Angina No Hx Heart Attack Yes: states possible. stopped plavix bc ringing in ears. DR. MONTALVO Hx Cardiac Surgery/Stents/Etc. Yes: 5 BYPASS 2002 Hx Heart Failure No: cardiomyopathy Hx Pacemaker/AICD No Hx Irregular Heartbeat and/or Afib Yes Hx Anticoagulant Therapy No: was on eliquis Query Text:(Coumadin, Aspirin, Plavix, Xarelto, etc.) Hx Pain in Legs when Walking/Leg Cramps No Comments on chelation therapy Respiratory Medical History Hx COPD No Hx Emphysema No Hx Smoking No Smoking Status Never smoker Hx Smoking Cessation Date 03/15/19 Hx Tobacco Use in last 12 months No Hx Sleep Apnea No Do you snore loudly (louder than talking No or can be heard through closed doors)? Do you often feel tired/ fatigued/ No sleepy during daytime? Has anyone observed you stop breathing No during sleep? STOP Results Negative GI Medical History Hx Ulcer Yes: 35 YRS AGO Hx Hepatitis No Hx Cirrhosis No Hx GI Bleed Yes: possible hemorroids. states occassional. Hx Unplanned Weight Loss Yes Comments colonoscopy with polyp removal in the past. Genitourinary Medical History Indwelling Catheter in Place on Arrival/ No Admission Hx Renal Disease No: KIDNEY STONES-turp 2019 Hx Dialysis No Musculoskeletal History Hx Arthritis No Hx Rheumatoid Arthritis No Endocrine Medical History Hx Diabetes Yes: pre-diabetic Hx Thyroid Disease No Hematologic Medical History Hx of Blood Transfusion No Hx of Transfusion in last 3 Months No Ever experience any problems with No transfusion(s)? Hx of Preganancy in last 3 Months N/A Nurse Filling Out Transfusion & MLEACH2 Questions: Date: 04/01/19 Time: 08:57 Psycho/Social Medical History Hx Depression No Hx Anxiety No Hx Behavior Disorder No Hx Alcohol Use No Hx Substance Use No Other Medical History Hx Blood Disorders No Hx Anemia No Hx Cancer No Hx Drug Resistant Organism Yes: staff infection in the past 2002 Wound/Pressure Injury Present on Arrival No /Admission Query Text:If yes, chart assessment in Shift/Clinical Findings Central Line/PICC/VAD Present on Arrival No /Admission Antibiotics within last 7 days? No Methicillin Resistant Staphylococcus aureus Screening Active MRSA No: staph infection after at [facility] in 2002 Risk for Readmission Number of Risk Factors 4 At Risk for Readmission Patient is At Risk For Readmission Patient is eligible for Call Back Y Past Medical History (Last Reviewed 04/01/19 @ 10:13 by Abril Yan PA-C) Non-ischemic cardiomyopathy (Chronic) Atherosclerotic heart disease of [place] coronary artery without angina pectoris (Chronic) Essential (primary) hypertension (Chronic) Hyperlipidemia (Chronic) Dyspnea on exertion (Resolved) History of lipoma removal (Resolved) Palpitations (Resolved) Past Surgical History (Last Reviewed 04/01/19 @ 10:13 by Abril Yan PA-C) H/O coronary artery bypass surgery (Chronic 05/15/02) History of Achilles tendon repair (Resolved) History of arthroscopy of right knee (Resolved) History of back surgery (Resolved) History of left inguinal hernia repair (Resolved) History of tonsillectomy (Resolved) History of transurethral resection of prostate (Resolved 03/2019) Maternal Family History: Family History (Last Reviewed 04/01/19 @ 10:14 by Abril Yan PA-C) Father S/P CABG (coronary artery bypass graft), Onset Age: 51 CAD (coronary artery disease) Myocardial infarction Diabetes Mother CVA (cerebral vascular accident) Sister Cancer Brother Diabetes Family History: No pertinent history Paternal Family History: Family History (Last Reviewed 04/01/19 @ 10:14 by Abril Yan PA-C) Father S/P CABG (coronary artery bypass graft), Onset Age: 51 CAD (coronary artery disease) Myocardial infarction Diabetes Mother CVA (cerebral vascular accident) Sister Cancer Brother Diabetes Family History: No pertinent history - Social History Lives: Spouse/ Significant Other Smoking Status: Never smoker Allergies/Adverse Reactions: Allergy/AdvReac Type Severity Reaction Status Date / Time amoxicillin Allergy rash on Verified 03/08/19 15:54 feet after 5 days of treatment ampicillin Allergy Rash on Verified 03/08/19 15:54 feet after 5 days rosuvastatin [From Crestor] AdvReac Severe Vision Verified 03/08/19 15:54 changes/eye pain/knee pain ezetimibe [From Zetia] AdvReac Intermediate Severe Verified 03/08/19 12:27 Constipation ciprofloxacin [From Cipro] AdvReac Pain in Verified 04/01/19 08:24 joints gemfibrizol AdvReac Severe Vision Uncoded 03/08/19 12:27 changes Review of Systems Constitutional:: Reports: Fatigue. Denies: Fever, Sweats, Weight loss, Appetite change, Chills Cardiovascular:: Denies: Chest pain, Palpitations, Orthopnea, PND, Shortness of breath Respiratory: Denies: Cough, Hemoptysis, Shortness of Breath, Wheezing Gastrointestinal:: Denies: Abdominal pain, Nausea, Vomiting, Diarrhea, Constipation, Melena, Hematochezia Genitourinary: Reports: Hematuria. Denies: Dysuria, Flank pain Musculoskeletal:: Denies: Back pain, Myalgia, Arthralgia Skin: Denies: Rash, Skin Changes, Wounds Neurological:: Denies: Headache, Dizziness, Numbness, Tingling, Visual changes, Tinnitus, Hearing loss Psychiatric: Denies: Anxiety, Depression, Homicidal Ideations, Suicidal Ideations Vital Signs Height 6 ft 1 in Weight: 219 lb 6.4 oz Weight in Pounds 219.4 lbs Pulse Ox 95 Temperature 98.7 F Pulse Rate 86 Respiratory Rate 16 Blood Pressure 123/77 Blood Pressure Position Semi-Fowlers - Physical Exam General: Alert, Oriented x3, No apparent distress, - - Jones and bladder irrigation in place, small amount of blood around the catheter HEENT: Atraumatic, Normocephalic Oropharynx:: Negative for: Dry mucosa, Ulcerated lesions Neck:: Supple, Trachea midline. Negative for: JVD, bilateral Cardiac:: Regular rate, Regular rhythm, Normal S1, Normal S2. Negative for: Murmur Lungs: Clear to auscultation, Excusion symmetrical. Negative for: Rhonchi, Wheezes Abdomen:: Bowel sounds x 4, Soft, Non-tender, Non-distended. Negative for: Hepatosplenomegaly Extremities:: Calf tenderness - RLE. Negative for: Cyanosis, Edema Neurological: Neuro grossly intact Skin:: Negative for: Lesions, Rash, Petechiae, Ecchymosis Psychiatric:: Appropriate affect, Euthymic Lymphatics:: Negative for: Cervical lymphadenopathy, Supraclavicular lymphad enopathy, Axillary lymphadenopathy Laboratory Data: Laboratory Tests 04/01/19 04/01/19 04/01/19 Range/Units 13:10 08:15 05:03 WBC (4.4-11.0) K/mm3 RBC (4.6-6.2) M/mm3 Hgb 12.4 L (13.0-16.5) g/dL Hct 38.3 L (40-54) % MCV (80-94) fL MCH (27.0-32.0) pg MCHC (32-36) g/dL RDW Std Deviation (35.1-43.9) fl RDW Coeff of Carol (11.6-14.6) % Plt Count (150-450) K/mm3 MPV (6.2-12.0) fl Immature Gran % (Auto) (0.0-0.9) % Neut % (Auto) (47-70) % Lymph % (Auto) (19-41) % [place] % (Auto) (0-10) % Eos % (Auto) (0-5) % Baso % (Auto) (0-1) % Absolute Neuts (auto) (2.0-7.7) X10^3/uL Absolute Lymphs (auto) (0.83-4.51) X10^3/uL Nucleated RBC % (0-5) % Sodium (136-145) mmol/L Potassium (3.5-5.1) mmol/L Chloride (98-107) mmol/L Carbon Dioxide (21.0-32.0) mmol/L Anion Gap (5-15) BUN (7-18) mg/dL Creatinine (0.70-1.30) mg/dL Estim Creat Clear Calc ml/min Est GFR (MDRD) Af Amer (>60) mL/min Est GFR (MDRD) Non-Af (>60) mL/min BUN/Creatinine Ratio (10-20) RATIO Glucose (74-106) mg/dL Calcium (8.5-10.1) mg/dL Magnesium 2.3 (1.6-2.6) mg/dL Urine Color Red (Yellow) Urine Clarity Cloudy (Clear) Urine pH 6.5 (5.0 - 8.0) Ur Specific Bison 1.010 (1.002-1.030) Urine Protein 500 H (Negative) mg/dl Urine Glucose (UA) Normal (Normal) mg/dl Urine Ketones Negative (Negative) mg/dl Urine Occult Blood 250 H (Negative) /ul Urine Nitrite Negative (Negative) Urine Bilirubin Negative (Negative) mg/dL Urine Urobilinogen Normal (Normal) mg/dl Ur Leukocyte Esterase 25 H (Negative) /ul Urine RBC > 100 SEEN (0-5) /hpf Urine WBC 10-25 SEEN (0-5) /hpf Ur Squamous Epith Cells 0 SEEN (0-5) /hpf Urine Bacteria 0 SEEN (None Seen) /hpf Urine Mucus 0 SEEN (<or=2+) /hpf 04/01/19 04/01/19 Range/Units 04:32 04:32 WBC 7.3 (4.4-11.0) K/mm3 RBC 4.16 L (4.6-6.2) M/mm3 Hgb 12.0 L (13.0-16.5) g/dL Hct 37.2 L (40-54) % MCV 89.4 (80-94) fL MCH 28.8 (27.0-32.0) pg MCHC 32.3 (32-36) g/dL RDW Std Deviation 44.0 H (35.1-43.9) fl RDW Coeff of Carol 13.5 (11.6-14.6) % Plt Count 257 (150-450) K/mm3 MPV 9.0 (6.2-12.0) fl Immature Gran % (Auto) 0.300 (0.0-0.9) % Neut % (Auto) 70.4 H (47-70) % Lymph % (Auto) 15.2 L (19-41) % [place] % (Auto) 8.1 (0-10) % Eos % (Auto) 5.3 H (0-5) % Baso % (Auto) 0.7 (0-1) % Absolute Neuts (auto) 5.2 (2.0-7.7) X10^3/uL Absolute Lymphs (auto) 1.11 (0.83-4.51) X10^3/uL Nucleated RBC % 0 (0-5) % Sodium 140 (136-145) mmol/L Potassium 4.2 (3.5-5.1) mmol/L Chloride 108 H (98-107) mmol/L Carbon Dioxide 26.0 (21.0-32.0) mmol/L Anion Gap 6 (5-15) BUN 9 (7-18) mg/dL Creatinine 0.87 (0.70-1.30) mg/dL Estim Creat Clear Calc 96.94 ml/min Est GFR (MDRD) Af Amer 113 (>60) mL/min Est GFR (MDRD) Non-Af 94 (>60) mL/min BUN/Creatinine Ratio 10.3 (10-20) RATIO Glucose 121 H (74-106) mg/dL Calcium 8.4 L (8.5-10.1) mg/dL Magnesium (1.6-2.6) mg/dL Urine Color (Yellow) Urine Clarity (Clear) Urine pH (5.0 - 8.0) Ur Specific B[place] (1.002-1.030) Urine Protein (Negative) mg/dl Urine Glucose (UA) (Normal) mg/dl Urine Ketones (Negative) mg/dl Urine Occult Blood (Negative) /ul Urine Nitrite (Negative) Urine Bilirubin (Negative) mg/dL Urine Urobilinogen (Normal) mg/dl Ur Leukocyte Esterase (Negative) /ul Urine RBC (0-5) /hpf Urine WBC (0-5) /hpf Ur Squamous Epith Cells (0-5) /hpf Urine Bacteria (None Seen) /hpf Urine Mucus (<or=2+) /hpf Diagnostic Data: Diagnostic Data Chest X-Ray 04/01/19 08:05 IMPRESSION: No acute pathology. Electronically Signed: Eddi Yates, at 9:04 EST Tel , Service support , Assessment and Plan Great Mr. Edmundo Coley is a pleasant 63-year-old man with a past medical history positive for coronary artery disease, hypertension, hyperlipidemia. Mr. Coley recently underwent TURP. He has required admissions on 03/10/2019 and 03/18/2019 for postoperative bleeding requiring cauterization. Per patient self-report he was diagnosed on 03/25/2019 with right lower extremity DVT and bilateral pulmonary emboli. Began Eliquis 03/25/2019. He was subsequently admitted through the emergency department earlier this morning for hematuria. 1. Hematuria on DOAC-requires anticoagulation for right lower extremity DVT and self-reported bilateral PEs diagnosed only 1 week ago. (These studies were obtained at [facility] and reports are not available to me at this time for review). He underwent bilateral lower extremity venous Dopplers earlier this afternoon?that report is still pending. At the present time the patient is hemodynamically stable, hemoglobin 12.4. Ultimately any option for anticoagulation is going to place him at risk for continued bleeding and moving forward treatment options include temporary IVC filter placement, which is tentatively planned for tomorrow under the care of Dr. Mancini. The patient is amenable to filter placement. Case was discussed with Dr. Lizama who was in agreement with aforementioned plan. Kaylee Naranjo, MSN, COSMETIC SURGEON, AOCNP Medications: Medications Added to Medication List This Visit Category Date Time Status 0.9% Normal Saline 1,000 ml Med 04/01/19 08:01 Active IV 50 mls/hr 0.9% Normal Saline 250 ml Med 04/01/19 08:12 Active IV 15 mls/hr 0.9% Normal Saline 250 ml Med 04/01/19 08:12 Active IV 15 mls/hr 0.9% Saline Lock Med 04/01/19 08:12 Active 10 - 40 ml IV UD PRN Acetaminophen [Tylenol] Med 04/01/19 08:01 Active 650 mg PO Q6H PRN PRN Albuterol Aerosols [Ventolin Aerosols] Med 04/01/19 08:01 Active 2.5 mg INHALATION Q2H PRN PRN Atorvastatin Calcium [Lipitor] Med 04/01/19 22:00 Active 10 mg PO QHS Dextrose 10%-Water 250 ml Med 04/01/19 08:10 Active IV 999 mls/hr Ensure Enlive Med 04/01/19 14:00 Active 120 ml PO 4X/DAY Glucagon Med 04/01/19 08:01 Active 1 mg IM .X1 PRN Guaifenesin [Robitussin] Med 04/01/19 08:01 Active 20 ml PO Q4H PRN PRN Losartan Potassium [Cozaar] Med 04/01/19 10:00 Active 50 mg PO DAILY Ondansetron [Zofran] Med 04/01/19 08:01 Active 4 mg IV Q8H PRN PRN Oxycodone [Oxyir] Med 04/01/19 08:01 Active 5 mg PO Q4H PRN PRN Senna/Docusate Sodium [Senokot-S, Rula-Colace] Med 04/01/19 08:01 Active 2 tablet PO BID PRN PRN morphine Inj Med 04/01/19 08:01 Active 2 mg IV Q3H PRN PRN Primary Care Provider: Dyllan Foster DO Referring Provider: - Problem List (1) Deep vein thrombosis (DVT) Status: Chronic Qualifiers: Affected thrombotic vein of extremity: peroneal Chronicity: acute Laterality: right (2) Contraindication to anticoagulation therapy Status: Acute (3) Gross hematuria Status: Acute
--- NOTE | 2019-04-01 16:47 | PCM.PN.BLA ---
Progress Note Recommendations per hematology oncology suggest placement of vena cava filter and cessation currently of anticoagulation. We will tentatively hold the patient fasting overnight and plan right internal jugular approach for inferior vena cava filter placement with inferior venacavogram tomorrow Dyllan Mancini M.D., F.A.C.S. STROKE Vital Signs/Narrative: Vital Signs Temp Pulse Resp BP Pulse Ox 04/01/19 15:12 90 16 95 04/01/19 14:30 98.7 F 86 16 123/77 H 95 04/01/19 14:00 93
--- NOTE | 2019-04-01 17:41 | PCM.PN.BLA ---
Progress Note 63 yo male with complex situation recurrent bleeding from v large prostate s/p turp a month ago. on blood thinners, just held. comes in with recurrrent bleeding after turp 3 major bleeds recently had active blood clots in right leg h/o recent PE recommend we place a temporary IVC filter. spoke with Dr Mancini and we are all in agreement the benefit of the filter especially if bleeding gets worse and I have to take him back to surgery again at high risk for more PE which could be life threatening if would happen again. spoke to patient regarding this and he is in agreement. STROKE Vital Signs/Narrative: Vital Signs Temp Pulse Resp BP Pulse Ox 04/01/19 15:12 90 16 95 04/01/19 14:30 98.7 F 86 16 123/77 H 95 04/01/19 14:00 93
[2019-04-01] MEDS: Atorvastatin Calcium 10 MG Tablet PO (21:00)
[2019-04-01 21:38] LABS: Hematocrit 35.3 % (40-54); Hemoglobin 11.5 g/dL (13.0-16.5)
[2019-04-02] VITALS (14 sets, daily range): BP systolic 111–130; BP diastolic 76–81; PULSE 74–93; RESP 16–20; TEMP 36.7–37.2; O2SAT 94–98; BMI 29.0
[2019-04-02] MEDS: 0.9% Normal Saline 1,000 ML 50 ML IV (03:29)
[2019-04-02 06:38] LABS: Absolute Lymphocyte Count 1.05 X10^3/uL (0.83-4.51); Absolute Neutrophil Count 4.5 X10^3/uL (2.0-7.7); Basophil# 0.03 X10^3/uL; Basophil% 0.5 % (0-1); Eosinophil# 0.28 X10^3/uL; Eosinophils% 4.4 % (0-5); Hematocrit 36.7 % (40-54); Hemoglobin 11.7 g/dL (13.0-16.5); Lymphocyte # 1.05 X10^3/ul (4.0); Lymphocyte % 16.5 % (19-41); Mean Corp Hgb Conc 31.9 g/dL (32-36); Mean Corpuscular Hgb 28.9 pg (27.0-32.0); Mean Corpuscular Volume 90.6 fL (80-94); Mean Platelet Vol. 9.1 fl (6.2-12.0); Monocyte# 0.53 X10^3/uL; Monocyte% 8.3 % (0-10); NRBC Flagged by Analyzer 0 % (0-5); Neutrophil # 4.45 X10^3/uL (2.7-7.7); Platelet Count 242 K/mm3 (150-450); RBC Distribution Width CV 13.7 % (11.6-14.6); RBC Distribution Width SD 45.4 fl (35.1-43.9); Red Blood Count 4.05 M/mm3 (4.6-6.2); White Blood Count 6.4 K/mm3 (4.4-11.0)
[2019-04-02 06:52] LABS: International Normalized Ratio 1.2; Prothrombin Time (Protime)PT. 14.5 SECONDS (11.7-14.9)
[2019-04-02 06:54] LABS: Partial Thromboplast Time 31.3 Seconds (24.1-36.2)
[2019-04-02 07:04] LABS: Anion Gap 5 (5-15); BUN 12 mg/dL (7-18); BUN/Creat Ratio 13.8 RATIO (10-20); Calcium,Total 8.8 mg/dL (8.5-10.1); Chloride 109 mmol/L (98-107); Creatinine, Serum 0.87 mg/dL (0.70-1.30); EST Glomerular Filtration Rate 94 mL/min (>60); Est Glom Filt Rate - Afr Amer 114 mL/min (>60); Estimated Creatinine Clearance 94.15 ml/min; Glucose 113 mg/dL (74-106); Potassium 4.2 mmol/L (3.5-5.1); Sodium Level 141 mmol/L (136-145)
[2019-04-02] MEDS: Albuterol 2.5 MG/3 ML VIAL.NEB. INHALATION ×2 (09:30→16:12)
--- NOTE | 2019-04-02 10:27 | PN_ITS ---
Patient Problems: Active and Suspected Problems (Last Reviewed 04/01/19 @ 10:13 by Abril Yan PA-C) Hematuria (Acute) Contraindication to anticoagulation therapy (Acute) Pulmonary embolus (Acute) Urinary retention (Acute) Reason for Visit: Hematuria on Eliquis after PE and DVT. IVC filter Objective: Patient has clear urine in the Jones urine tube. On CBI. Patient was taking IV homeopathic medication every 3 weeks which contains EDTA, vitamin C, magnesium, sodium bicarb. B complex vitamin. Patient is going for IVC filter. Vitals/I&O's: Vital Signs Temp Pulse Resp BP Pulse Ox 98.9 F 83 18 119/76 96 04/02/19 09:43 04/02/19 09:43 04/02/19 09:43 04/02/19 09:43 04/02/19 09:43 Oxygen Delivery Method Room Air Weight: 218 lb 14.704 oz Body Mass Index (BMI) 29.0 Intake and Output for Last 24 Hours 03/31/19 04/01/19 04/02/19 23:59 23:59 23:59 Intake Total 820 / 820 937.5 / 937.5 Output Total 6550 / 6550 350 / 350 Balance -5730 / -5730 587.5 / 587.5 General: Alert, Oriented x3, Cooperative HEENT: Atraumatic, PERRLA, EOMI, Normocephalic Neck: Supple, No JVD, Negative Carotid Bruits Lungs: Clear to auscultation, Normal air movement, No rhonchi, No wheeze, No rales, Diminished Cardiovascular: Regular rate, Regular Rhythm, Normal S1, Normal S2, No murmurs Abdomen: Bowel Sounds Present, Soft, Non Tender, Non-Distended Extremities: No edema, Capillary Refill Less than 3 Seconds Skin: No rashes, No breakdown Musculoskeletal: No Tenderness to Palpation of Joints or Extremities, Arthritic Changes Neurological: Cranial nerves II-XII grossly intact, Deep Tendon Reflexes 2+/4 and Symmetrical, Neuro grossly intact Psych/Mental Status: Normal Affect, Appropriate Laboratory Results 04/01/19 13:10: Hgb 12.4 L, Hct 38.3 L 04/01/19 21:32: Hgb 11.5 L, Hct 35.3 L 04/02/19 06:22: WBC 6.4, RBC 4.05 L, Hgb 11.7 L, Hct 36.7 L, MCV 90.6, MCH 28.9, MCHC 31.9 L, RDW Std Deviation 45.4 H, RDW Coeff of Carol 13.7, Plt Count 242, MPV 9.1, Immature Gran % (Auto) 0.300, Neut % (Auto) 70.0, Lymph % (Auto) 16.5 L, [place] % (Auto) 8.3, Eos % (Auto) 4.4, Baso % (Auto) 0.5, Absolute Neuts (auto) 4.5, Absolute Lymphs (auto) 1.05, Nucleated RBC % 0 04/02/19 06:22: Sodium 141, Potassium 4.2, Chloride 109 H, Carbon Dioxide 27.0, Anion Gap 5, BUN 12, Creatinine 0.87, Estim Creat Clear Calc 94.15, Est GFR (MDRD) Af Amer 114, Est GFR (MDRD) Non-Af 94, BUN/Creatinine Ratio 13.8, Glucose 113 H, Calcium 8.8 04/02/19 06:22: PT 14.5, INR 1.2, APTT 31.3 Current Medications Acetaminophen (Tylenol) 650 mg PO Q6H PRN PRN PRN Reason: Pain Score 1-10/Temp > 100.7 F Albuterol Sulfate (Ventolin Aerosols) 2.5 mg INHALATION Q2H PRN PRN PRN Reason: Shortness of Breath/Wheezing Last Admin: 04/02/19 09:30 Dose: 2.5 mg Documented by: Atorvastatin Calcium (Lipitor) 10 mg PO QHS [facility] Last Admin: 04/01/19 21:00 Dose: 10 mg Documented by: Glucagon () 1 mg IM .X1 PRN PRN Reason: Hypoglycemia Guaifenesin (Robitussin) 20 ml PO Q4H PRN PRN PRN Reason: COUGH Sodium Chloride () 1,000 mls @ 50 mls/hr IV .Q20H [facility] Last Admin: 04/02/19 03:29 Dose: 50 mls/hr Documented by: Dextrose (Dextrose 10%-Water) 250 mls @ 999 mls/hr IV .Q16M PRN; Protocol PRN Reason: HYPOGLYCEMIA Sodium Chloride () 250 mls @ 15 mls/hr IV .[id number] PRN PRN Reason: Saline Flush Sodium Chloride () 250 mls @ 15 mls/hr IV .[id number] PRN PRN Reason: Additional IVPB Infusion Losartan Potassium (Cozaar) 50 mg PO DAILY [facility] Last Admin: 04/02/19 09:43 Dose: Not Given Documented by: Morphine Sulfate () 2 mg IV Q3H PRN PRN PRN Reason: Pain Score 6-10/10 Nutritional Formula (Lactose Free) (Ensure Enlive) 120 ml PO 4X/DAY [facility] Last Admin: 04/02/19 09:24 Dose: Not Given Documented by: Ondansetron HCl (Zofran) 4 mg IV Q8H PRN PRN PRN Reason: NAUSEA/VOMITING Oxycodone HCl (Oxyir) 5 mg PO Q4H PRN PRN PRN Reason: Pain Score 4-5/10 Senna/Docusate Sodium (Senokot-S, Rula-Colace) 2 tablet PO BID PRN PRN PRN Reason: Constipation Sodium Chloride () 10 - 40 ml IV UD PRN PRN Reason: SALINE FLUSH STROKE Vital Signs/Narrative: Vital Signs Temp Pulse Resp BP Pulse Ox 04/02/19 09:43 98.9 F 83 18 119/76 96 04/02/19 09:30 82 18 04/02/19 08:56 94 04/02/19 07:52 81 Medical Necessity - Tobacco Use Smoking Status: Never smoker Assessment/Plan All Active Problems (Last Reviewed 04/01/19 @ 10:13 by Abril Yan PA-C) Traumatic pneumothorax (Resolved) Hematuria (Acute) Contraindication to anticoagulation therapy (Acute) Pulmonary embolus (Acute) Gross hematuria (Acute) Urinary retention (Acute) Dyspnea on exertion (Resolved) Palpitations (Resolved) The patient is a 63 year old M with recent diagnosis of DVT and PE, started Eliquis on 1 week came to ER with bleeding on and off for about 2 days. Hematuria started for short time on Monday and then stop then again last night about 8 PM and patient felt the urine retention secondary to clot obstructing the urinary stream and then in the morning he passed big clot with hematuria. Patient came to ER. Was started on continuous bladder irrigation with triple- lumen catheter [] In ED, vitals stable, blood pressure 137/64, heart rate 67/min. Initial blood work shows H&H 12/37.2, WBC 7.3 thousand, platelet count 257. K4.2. UA RBC more than 100, WBC 10-25. There is no chest x-ray and EKG done. 1. Acute hematuria with clot retention on Eliquis: Patient is being admitted on Medr. Patient current on continuous bladder irrigation. Seen by Dr. Tyson in ED. Monitor H&H every [address] Dyllan Mancini is been consulted to evaluate for temporary IVC filter. If no further bleeding or decision for not putting IVC filter is made, can challenge Eliquis 5 mg in the evening. Patient had TURP done on 02/15/2019 and had admitted twice for hematuria 02/18 2019 and 03/14/2019. 04/02: Mild acute anemia secondary to blood loss: Hemoglobin is 11.7. Baseline is around 12 to 13 g%. Urine is clear on CBI. Urology follow-up reviewed. Patient had IVC filter. Has contraindication for anticoagulation. 2. Recent DVT and PE about a week ago: Patient completed 1 week of Eliquis 10 mg twice daily and now scheduled for 5 mg twice daily. Currently hold it as mentioned above. Patient also has history of traumatic pneumothorax but did not require chest tube and reinflated on its own. 04/02: Chest x-ray did not show acute pathology. Venous Doppler reported as positive clot in right peroneal and soleus veins. 3. Cardiac conditions: Coronary artery disease status post 5 vessel CABG with ischemic cardiomyopathy: Patient has appointment with Dr. cross in May. Currently no chest pain or shortness of breath. Continue home medications. 4. Other comorbidities: Hypertension and dyslipidemia: Currently blood patient is acceptable range. DVT prophylaxis: Bilateral SCDs Laboratory Results 04/01/19 04:32: WBC 7.3, RBC 4.16 L, Hgb 12.0 L, Hct 37.2 L, MCV 89.4, MCH 28.8, MCHC 32.3, RDW Std Deviation 44.0 H, RDW Coeff of Carol 13.5, Plt Count 257, MPV 9.0, Immature Gran % (Auto) 0.300, Neut % (Auto) 70.4 H, Lymph % (Auto) 15.2 L, [place] % (Auto) 8.1, Eos % (Auto) 5.3 H, Baso % (Auto) 0.7, Absolute Neuts (auto) 5.2, Absolute Lymphs (auto) 1.11, Nucleated RBC % 0 04/01/19 04:32: Sodium 140, Potassium 4.2, Chloride 108 H, Carbon Dioxide 26.0, Anion Gap 6, BUN 9, Creatinine 0.87, Estim Creat Clear Calc 96.94, Est GFR (MDRD) Af Amer 113, Est GFR (MDRD) Non-Af 94, BUN/Creatinine Ratio 10.3, Glucose 121 H, Calcium 8.4 L 04/01/19 05:03: Urine Color Red, Urine Clarity Cloudy, Urine pH 6.5, Ur Specific [place] 1.010, Urine Protein 500 H, Urine Glucose (UA) Normal, Urine Ketones Negative, Urine Occult Blood 250 H, Urine Nitrite Negative, Urine Bilirubin Negative, Urine Urobilinogen Normal, Ur Leukocyte Esterase 25 H, Urine RBC > 100 SEEN, Urine WBC 10-25 SEEN, Ur Squamous Epith Cells 0 SEEN, Urine Bacteria 0 SEEN, Urine Mucus 0 SEEN Code Visit Inpatient E&M: 04238 [facility] L3
--- NOTE | 2019-04-02 11:06 | DCINST_ITS ---
Discharge Diet: No Restrictions Discharge Activity: Return to Normal Activity May shower in (days): 1 Lifting Restrictions: 10 pounds Call your doctor if your incision/area has: Continuous Slow Oozing, Sudden Increased Bleeding, Increased Pain/ Swelling, Increased Redness, Foul Smelling Discharge Call your doctor if you observe: Fever of 101 or Higher Suture Line Care: Avoid Pulling/Pushing, Avoid Pinching/Bending Additional Dressing/Incision Instructions:: Change or remove dressing in2 days. Leave steri-strips in place for 1 week. Allergies/Adverse Reactions: Allergies amoxicillin Allergy (Verified 03/08/19 15:54) rash on feet after 5 days of treatment ampicillin Allergy (Verified 03/08/19 15:54) Rash on feet after 5 days rosuvastatin [From Crestor] Adverse Reaction (Severe, Verified 03/08/19 15:54) Vision changes/eye pain/knee pain ezetimibe [From Zetia] Adverse Reaction (Intermediate, Verified 03/08/19 12:27) Severe Constipation ciprofloxacin [From Cipro] Adverse Reaction (Verified 04/01/19 08:24) Pain in joints gemfibrizol Adverse Reaction (Severe, Uncoded 03/08/19 12:27) Vision changes Medications to take at Discharge losartan 50 mg tablet 50 mg PO QDAY #90 tab 11/13/18 atorvastatin 10 mg tablet 10 mg PO QHS #90 tab 03/01/19 Albuterol IH (ProAir) [Proair Hfa] 1 puff INHALATION Q4H PRN PRN 03/08/19 Chelation Therapy 1 ea IV Q21D 03/08/19 Docusate Sodium [Colace] 100 mg PO DAILY PRN PRN 03/08/19 apixaban 5 mg tablet 10 mg PO BID 03/29/19 Primary Care Physician: Dyllan Foster DO [Primary Care Provider] - Test Results: Test results from this visit will be discussed in further detail at your follow- up appointment, if applicable. Please Follow Up With: Dyllan Mancini MD - [phone] When: Contact me when cleared for filter removal
--- NOTE | 2019-04-02 11:07 | PCM.OPRPT ---
Problem List (1) Pulmonary embolus Status: Acute Qualifiers: Pulmonary embolism type: multiple subsegmental (without acute cor pulmonale) Qualified Code(s): I26.94 - Multiple subsegmental pulmonary emboli without acute cor pulmonale (2) Deep vein thrombosis (DVT) Status: Chronic Qualifiers: Affected thrombotic vein of extremity: peroneal Chronicity: acute Laterality: right Report of Operation Date of Procedure: 04/02/19 Pre-Operative Diagnosis: Right lower extremity deep venous thrombosis with pulmonary embolus Post-Operative Diagnosis: Same plus contraindication to anticoagulation Surgery/Procedure Performed:: Inferior venacavogram with inferior vena cava Samantha filter placement Description of Surgical Findings:: Timeout and informed consent was obtained. 63-year-old gentleman was taken to the special procedures lab placed upon the table. His right neck was sterilely prepped and draped. He received 50 mcg of fentanyl and 2 mg of Versed is intravenous sedation. Ultrasound was performed identifying the right internal jugular vein. 2% lidocaine was instilled under ultrasound guidance. Micropuncture needle was inserted micropuncture wire inserted micropuncture sheath inserted an 035 J-wire was inserted and 5 [place] short sheath dilator was inserted. Using a 035 J-wire a 5 [place] universal flush catheter was placed in the right common iliac. Utilizing 15 cc a second for 25 cc of Isovue and inferior venacavogram was obtained. This demonstrated that the proximal right common iliac vein and inferior vena cava was patent throughout. The location of the renal veins identified and marked. I then exchanged out the 5 [place] sheath predilated with a 9 [place] sheath and then placed the introducing 8 [place] sheath. The top of the catheter was positioned to be close to the renal veins but also position to be where the filter would likely sit straight up. The filter was released. It appeared to have a good upright positioning. Sheath was removed pressure was held for hemostasis Telfa OpSite dressing applied blood loss minimal no apparent complications he tolerated the procedure well was taken to the recovery area in satisfactory edition without apparent complication The inferior venacavogram demonstrates patent proximal right common neck and widely patent inferior vena cava without thrombus. The filter appeared to be in good position. Dyllan Mancini M.D., F.A.C.S. Type of Anesthesia:: IV Sedation, Local
[2019-04-02] MEDS: Atorvastatin Calcium 10 MG Tablet PO (21:39)
[2019-04-03] VITALS (15 sets, daily range): BP systolic 114–128; BP diastolic 63–93; PULSE 76–111; RESP 16–21; TEMP 36.4–37; O2SAT 94–98
[2019-04-03] MEDS: 0.9% Normal Saline 1,000 ML 50 ML IV (01:45)
--- NOTE | 2019-04-03 06:09 | PCM.PN.BLA ---
Progress Note Patient is doing well with filter with no complaints He has been provided prescription for 20 to 30 mm gradient compression hose knee-high specifically for his right lower extremity but can be worn bilaterally. He is to utilize those for 3 to 6 months post discharge He again has been made aware that the filter placed is a retrievable filter and is intended to be retrieved. The patient is well aware that he needs to return to see me once he is cleared by primary care or hematology for filter removal Dyllan Mancini M.D., F.A.C.S. STROKE Vital Signs/Narrative: Vital Signs Temp Pulse Resp BP Pulse Ox 04/03/19 02:56 98.5 F 85 16 128/93 H 94 04/03/19 02:24 76
--- NOTE | 2019-04-03 07:09 | PCM.PN.BLA ---
Progress Note 63 yo male with DVT and PE s/p IVC filter came in with bleeding from prostate no more bleeding. stop irrigation, d/c tomorrow maybe home with no blood thinners for a week? then can restart low dose eliquis. brandy STROKE Vital Signs/Narrative: Vital Signs Pulse 04/03/19 06:00 78
[2019-04-03] MEDS: Albuterol 2.5 MG/3 ML VIAL.NEB. INHALATION ×3 (07:39→20:18)
--- NOTE | 2019-04-03 08:29 | PCM.PN.HOSP ---
Patient Problems: Active and Suspected Problems (Last Reviewed 04/01/19 @ 10:13 by Abril Yan PA-C) Hematuria (Acute) Contraindication to anticoagulation therapy (Acute) Pulmonary embolus (Acute) Urinary retention (Acute) Reason for Visit: Hematuria on Eliquis Recent history of DVT/PE Vitals/I&O's: Vital Signs Temp Pulse Resp BP Pulse Ox 98.5 F 88 17 128/93 H 95 04/03/19 02:56 04/03/19 08:00 04/03/19 07:40 04/03/19 02:56 04/03/19 08:19 Oxygen Delivery Method Room Air Weight: 218 lb 4.122 oz Body Mass Index (BMI) 29.0 Intake and Output for Last 24 Hours 04/01/19 04/02/19 04/03/19 23:59 23:59 23:59 Intake Total 820 / 820 3192.5 / 3192.5 494.17 / 494.17 Output Total 6550 / 6550 1750 / 1750 Balance -5730 / -5730 1442.5 / 1442.5 494.17 / 494.17 General: Alert, Oriented x3, Cooperative HEENT: Atraumatic, PERRLA, EOMI, Normocephalic Neck: Supple, No JVD, Negative Carotid Bruits Lungs: Clear to auscultation, No rhonchi, No wheeze, No rales, Diminished Cardiovascular: Regular rate, Regular Rhythm, Normal S1, Normal S2, No murmurs Abdomen: Bowel Sounds Present, Soft, Non Tender, Non-Distended, - - Triple-lumen catheter. Bladder irrigation has been stopped. Urine is clear. Watch out for hematuria Extremities: No edema, Capillary Refill Less than 3 Seconds Skin: No rashes, No breakdown Musculoskeletal: No Tenderness to Palpation of Joints or Extremities, Arthritic Changes Neurological: Cranial nerves II-XII grossly intact, Deep Tendon Reflexes 2+/4 and Symmetrical, Neuro grossly intact Psych/Mental Status: Normal Affect, Appropriate Current Medications Acetaminophen (Tylenol) 650 mg PO Q6H PRN PRN PRN Reason: Pain Score 1-10/Temp > 100.7 F Albuterol Sulfate (Ventolin Aerosols) 2.5 mg INHALATION Q2H PRN PRN PRN Reason: Shortness of Breath/Wheezing Last Admin: 04/03/19 07:39 Dose: 2.5 mg Documented by: Atorvastatin Calcium (Lipitor) 10 mg PO QHS [facility] Last Admin: 04/02/19 21:39 Dose: 10 mg Documented by: Glucagon () 1 mg IM .X1 PRN PRN Reason: Hypoglycemia Guaifenesin (Robitussin) 20 ml PO Q4H PRN PRN PRN Reason: COUGH Dextrose (Dextrose 10%-Water) 250 mls @ 999 mls/hr IV .Q16M PRN; Protocol PRN Reason: HYPOGLYCEMIA Sodium Chloride () 250 mls @ 15 mls/hr IV .[id number] PRN PRN Reason: Saline Flush Sodium Chloride () 250 mls @ 15 mls/hr IV .[id number] PRN PRN Reason: Additional IVPB Infusion Losartan Potassium (Cozaar) 50 mg PO DAILY [facility] Last Admin: 04/02/19 09:43 Dose: Not Given Documented by: Nutritional Formula (Lactose Free) (Ensure Enlive) 120 ml PO 4X/DAY [facility] Last Admin: 04/02/19 21:39 Dose: Not Given Documented by: Ondansetron HCl (Zofran) 4 mg IV Q8H PRN PRN PRN Reason: NAUSEA/VOMITING Senna/Docusate Sodium (Senokot-S, Rula-Colace) 2 tablet PO BID PRN PRN PRN Reason: Constipation Sodium Chloride () 10 - 40 ml IV UD PRN PRN Reason: SALINE FLUSH STROKE Vital Signs/Narrative: Vital Signs Pulse Resp Pulse Ox 04/03/19 08:19 95 04/03/19 08:00 88 04/03/19 07:40 83 17 04/03/19 06:00 78 Medical Necessity - Tobacco Use Smoking Status: Never smoker Assessment/Plan All Active Problems (Last Reviewed 04/01/19 @ 10:13 by Abril Yan PA-C) Traumatic pneumothorax (Resolved) Hematuria (Acute) Contraindication to anticoagulation therapy (Acute) Pulmonary embolus (Acute) Gross hematuria (Acute) Urinary retention (Acute) Dyspnea on exertion (Resolved) Palpitations (Resolved) The patient is a 63 year old M with recent diagnosis of DVT and PE, started Eliquis on 1 week came to ER with bleeding on and off for about 2 days and urine retention secondary to clot. Then he passed big clot with hematuria. Was started on continuous bladder irrigation with triple-lumen catheter [] Initial blood work shows H&H 12/37.2, WBC 7.3 thousand, platelet count 257. K4.2. UA RBC more than 100, WBC 10-25. 1. Acute hematuria with clot retention on Eliquis: Patient is being admitted on MedSur. Patient current on continuous bladder irrigation. Seen by Dr. Tyson in ED. Monitor H&H every [address] Dr[address] Dyllan Mancini is been consulted to evaluate for temporary IVC filter. If no further bleeding or decision for not putting IVC filter is made, can challenge Eliquis 5 mg in the evening. Patient had TURP done on 02/15/2019 and had admitted twice for hematuria 02/18 2019 and 03/14/2019. 04/02: Mild acute anemia secondary to blood loss: Hemoglobin is 11.7. Baseline is around 12 to 13 g%. Urine is clear on CBI. Urology follow-up reviewed. Patient had IVC filter. Has contraindication for anticoagulation. 04/03: Continues blood vacation is stopped. Watch out for hematuria. CBC ordered. 2. Recent DVT and PE about a week ago: Patient completed 1 week of Eliquis 10 mg twice daily and now scheduled for 5 mg twice daily. Currently hold it as mentioned above. Patient also has history of traumatic pneumothorax but did not require chest tube and reinflated on its own. 04/02: Chest x-ray did not show acute pathology. Venous Doppler reported as positive clot in right peroneal and soleus veins. 04/03: IVC filter through right IJ approach. No hematoma at neck. 3. Cardiac conditions: Coronary artery disease status post 5 vessel CABG with ischemic cardiomyopathy: Patient has appointment with Dr. cross in April 2019. Currently no chest pain or shortness of breath. Continue home medications. 4. Other comorbidities: Hypertension and dyslipidemia: Currently blood patient is acceptable range. DVT prophylaxis: Bilateral SCDs Total time of the visit including total time spent in counseling or coordination of care, (more than 50% of the total time, spent in obtaining medical information from nurses and other ancillary care providers), , review of labs and imaging is 30 minutes Code Visit Inpatient E&M: [id number] [facility] L3
[2019-04-03 09:19] LABS: Absolute Lymphocyte Count 1.01 X10^3/uL (0.83-4.51); Absolute Neutrophil Count 3.9 X10^3/uL (2.0-7.7); Basophil# 0.03 X10^3/uL; Basophil% 0.5 % (0-1); Eosinophil# 0.35 X10^3/uL; Eosinophils% 6.3 % (0-5); Hematocrit 38.2 % (40-54); Hemoglobin 12.3 g/dL (13.0-16.5); Lymphocyte # 1.01 X10^3/ul (4.0); Lymphocyte % 18.2 % (19-41); Mean Corp Hgb Conc 32.2 g/dL (32-36); Mean Corpuscular Hgb 29.5 pg (27.0-32.0); Mean Corpuscular Volume 91.6 fL (80-94); Mean Platelet Vol. 9.1 fl (6.2-12.0); Monocyte# 0.25 X10^3/uL; Monocyte% 4.5 % (0-10); NRBC Flagged by Analyzer 0 % (0-5); Neutrophil # 3.87 X10^3/uL (2.7-7.7); Neutrophil % 69.8 % (47-70); Platelet Count 238 K/mm3 (150-450); RBC Distribution Width CV 13.9 % (11.6-14.6); RBC Distribution Width SD 46.7 fl (35.1-43.9); Red Blood Count 4.17 M/mm3 (4.6-6.2); White Blood Count 5.6 K/mm3 (4.4-11.0)
--- NOTE | 2019-04-03 14:28 | CHAPLAIN ---
Type of Pastoral Visit ___ Initial Visit _x__ Follow-up Visit ___ On-call Visit ___ General Patient Visit ___ Spiritual Assessment ___ Family Conference ___ Bereavement ___ Rapid Response ___ Code Blue ___ Other (describe below) Pastoral Care Referral From _x__ Patient ___ Family ___ Nurse ___ Physician ___ Sas Clinical Programmer ___ Biometrics Instructor ___ Other (describe below) Sacrament/Intervention _x__ Active listening ___ Anointing ___ Jew ___ Bereavement ___ Communion ___ Judith exploration ___ ___ Life review _x__ Prayer ___ Reconciliation ___ Sacrament of Sick ___ Supportive presence ___ Wedding ___ Other (describe below) Pastoral Comments
[2019-04-03] MEDS: Senna/Docusate Sodium 1 Tablet 2 TABLET PO (18:37)
[2019-04-03] MEDS: Atorvastatin Calcium 10 MG Tablet PO (21:30)
[2019-04-03] MEDS: 0.9% Saline Lock 10 ML Syringe IV (21:31)
[2019-04-04 02:04] VITALS: PULSE 76
[2019-04-04 03:14] VITALS: BP 140/89; PULSE 87; RESP 18; TEMP 36.4; O2SAT 97
[2019-04-04 06:05] LABS: Absolute Lymphocyte Count 0.95 X10^3/uL (0.83-4.51); Absolute Neutrophil Count 3.8 X10^3/uL (2.0-7.7); Basophil# 0.04 X10^3/uL; Basophil% 0.7 % (0-1); Eosinophil# 0.54 X10^3/uL; Eosinophils% 9.2 % (0-5); Hematocrit 34.4 % (40-54); Lymphocyte # 0.95 X10^3/ul (4.0); Lymphocyte % 16.1 % (19-41); Mean Corpuscular Hgb 29.3 pg (27.0-32.0); Mean Corpuscular Volume 91.5 fL (80-94); Mean Platelet Vol. 8.9 fl (6.2-12.0); Monocyte# 0.53 X10^3/uL; NRBC Flagged by Analyzer 0 % (0-5); Neutrophil # 3.81 X10^3/uL (2.7-7.7); Neutrophil % 64.7 % (47-70); Platelet Count 230 K/mm3 (150-450); RBC Distribution Width CV 13.9 % (11.6-14.6); RBC Distribution Width SD 46.6 fl (35.1-43.9); Red Blood Count 3.76 M/mm3 (4.6-6.2); White Blood Count 5.9 K/mm3 (4.4-11.0)
[2019-04-04 06:54] VITALS: PULSE 88; RESP 20; O2SAT 96
[2019-04-04] MEDS: Albuterol 2.5 MG/3 ML VIAL.NEB. INHALATION (06:54)
--- NOTE | 2019-04-04 07:20 | PCM.PN.BLA ---
Progress Note urine clear d/c nazario hold eliquis for now can go home if no bleeding I can see him next week to start margie has ivc filter to protect from pe for now.
[2019-04-04] MEDS: Losartan Potassium 50 MG Tablet PO (08:24)
[2019-04-04 08:33] VITALS: BP 133/75; PULSE 101; RESP 16; TEMP 37.3; O2SAT 94
[2019-04-04 08:37] VITALS: PULSE 100
--- NOTE | 2019-04-04 10:19 | DCINST_ITS ---
- Discharge Diagnoses Current Active Problems: Current Active and Chronic Problems (Last Reviewed 04/01/19 @ 10:13 by Abril Yan PA-C) Hematuria (Acute) Contraindication to anticoagulation therapy (Acute) Pulmonary embolus (Acute) Bilateral pulmonary embolism (Chronic 03/2019) Urinary retention (Acute) You will use the following diet at home:: Cardiac Your food should be the consistency of: Regular Discharge Activity: Return to Normal Activity, May Not Drive - until he sees PCP May shower in (days): 1 Weight Bearing Status: Weight bearing as tolerated Call your doctor if your incision/area has: Continuous Slow Oozing, Sudden Increased Bleeding, Increased Pain/ Swelling, Increased Redness, Foul Smelling Discharge Call your doctor if you observe: Fever of 101 or Higher, Inability to urinate, Inability to have a bowel movement, Shortness of breath, Dizziness, Fainting spells, Swelling in the ankles, Chest pain, Prolonged hiccoughing, Increased palpitations (irregular heartbeat), Calf discomfort, Uncontrolled pain Suture Line Care: Avoid Pulling/Pushing, Avoid Pinching/Bending Additional Dressing/Incision Instructions:: Change or remove dressing in2 days. Leave steri-strips in place for 1 week. Allergies/Adverse Reactions: Allergies amoxicillin Allergy (Verified 03/08/19 15:54) rash on feet after 5 days of treatment ampicillin Allergy (Verified 03/08/19 15:54) Rash on feet after 5 days rosuvastatin [From Crestor] Adverse Reaction (Severe, Verified 03/08/19 15:54) Vision changes/eye pain/knee pain ezetimibe [From Zetia] Adverse Reaction (Intermediate, Verified 03/08/19 12:27) Severe Constipation ciprofloxacin [From Cipro] Adverse Reaction (Verified 04/01/19 08:24) Pain in joints gemfibrizol Adverse Reaction (Severe, Uncoded 03/08/19 12:27) Vision changes Medications to take at Discharge losartan 50 mg tablet 50 mg PO QDAY #90 tab 11/13/18 atorvastatin 10 mg tablet 10 mg PO QHS #90 tab 03/01/19 Albuterol IH (ProAir) [Proair Hfa] 1 puff INHALATION Q4H PRN PRN 03/08/19 Docusate Sodium [Colace] 100 mg PO DAILY PRN PRN 01/31/20 Chelation Therapy 1 ea IV Q21D #0 04/04/19 Primary Care Physician: Dyllan Foster DO [Primary Care Provider] - Please follow up with your Primary Care Physician in: In 1-2 weeks Test Results: Test results from this visit will be discussed in further detail at your follow- up appointment, if applicable. Please Follow Up With: Dyllan Mancini MD - [phone] When: Contact me when cleared for filter removal Please Follow Up With: Jorje Tyson MD When: in 2-3 weeks Please Follow Up With: Zach Lizama MD When: in 2 weeks Please Follow Up With: Mukesh Antony MD When: on 04/09/2019
--- NOTE | 2019-04-04 10:20 | DS.PCM_ITS ---
Discharge Date and Diagnosis Date of Admission: 04/01/19 Date of Discharge: 04/04/19 - Primary Discharge Diagnosis Active and Suspected Problems (Last Reviewed 04/01/19 @ 10:13 by Abril Yan PA-C) Hematuria (Acute) Contraindication to anticoagulation therapy (Acute) Pulmonary embolus (Acute) Urinary retention (Acute) - Secondary Discharge Diagnosis Chronic Problems (Last Reviewed 04/01/19 @ 10:13 by Abril Yan PA-C) Bilateral pulmonary embolism (Chronic 03/2019) Deep vein thrombosis (DVT) (Chronic 03/2019) Non-ischemic cardiomyopathy (Chronic) Atherosclerotic heart disease of [place] coronary artery without angina pectoris (Chronic) CABG x 5 - Sequential WARD to LAD & D2, Sequential radial graft to D1 & lateral CX, free OLGA to PDA 05/15/2002 H/O coronary artery bypass surgery (Chronic 05/15/02) CABG x 5 - Sequential WARD to LAD & D2, Sequential radial graft to D1 & lateral CX, free OLGA to PDA 05/15/2002 Essential (primary) hypertension (Chronic) Hyperlipidemia (Chronic) Hospital Course and Treatment Operations: None Summary of Care Provided: [] The patient is a 63 year old M with recent diagnosis of DVT and PE, started Eliquis on 1 week came to ER with bleeding on and off for about 2 days and urine retention secondary to clot. Then he passed big clot with hematuria. Was started on continuous bladder irrigation with triple-lumen catheter [] Initial blood work shows H&H 12/37.2, WBC 7.3 thousand, platelet count 257. K4.2. UA RBC more than 100, WBC 10-25. 1. Acute hematuria with clot retention on Eliquis: Patient is being admitted on [facility]. Patient current on continuous bladder irrigation. Seen by Dr. Tyson in ED. Monitor H&H every [address] Dyllan Mancini is been consulted to evaluate for temporary IVC filter. If no further bleeding or decision for not putting IVC filter is made, can challenge Eliquis 5 mg in the evening. Patient had TURP done on 02/15/2019 and had admitted twice for hematuria 02/18 2019 and 03/14/2019. 04/02: Mild acute anemia secondary to blood loss: Hemoglobin is 11.7. Baseline is around 12 to 13 g%. Urine is clear on CBI. Urology follow-up reviewed. Patient had IVC filter. Has contraindication for anticoagulation. 04/03: Continues blood vacation is stopped. : H&H remained stable .4. No hematuria noted. Patient voided urine sp ontaneously after removal of triple-lumen catheter. 2. Recent DVT and PE about a week ago: Patient completed 1 week of Eliquis 10 mg twice daily and now scheduled for 5 mg twice daily. Currently hold it as mentioned above. Patient also has history of traumatic pneumothorax but did not require chest tube and reinflated on its own. 04/02: Chest x-ray did not show acute pathology. Venous Doppler reported as positive clot in right peroneal and soleus veins. 04/03: IVC filter through right IJ approach. No hematoma at neck. 04/04: No hematoma oN neck. 3. Cardiac conditions: Coronary artery disease status post 5 vessel CABG with ischemic cardiomyopathy: Patient has appointment with Dr. cross in April 2019. Currently no chest pain or shortness of breath. Continue home medications. 4. Other comorbidities: Hypertension and dyslipidemia: Currently blood patient is acceptable range. DVT prophylaxis: Bilateral SCDs Discharge medication reconciliation done. Discharge follow-up instructions completed. Discharge process discussed with the patient and his near the bedside and all questions were answered to patient's satisfaction. Follow-up with urologist, district customs director Dr. Lizama, dry sand molder as mentioned in discharge instruction. Total time spent, exact 35 minutes on discharge meds reconciliation, examination, coordination of care with nurses and ancillary staff, review of imaging and blood test and discussion with the patient on follow-up instructions Laboratory Results 04/04/19 05:45: WBC 5.9, RBC 3.76 L, Hgb 11.0 L, Hct 34.4 L, MCV 91.5, MCH 29.3, MCHC 32.0, RDW Std Deviation 46.6 H, RDW Coeff of Carol 13.9, Plt Count 230, MPV 8.9, Immature Gran % (Auto) 0.300, Neut % (Auto) 64.7, Lymph % (Auto) 16.1 L, [place] % (Auto) 9.0, Eos % (Auto) 9.2 H, Baso % (Auto) 0.7, Absolute Neuts (auto) 3.8, Absolute Lymphs (auto) 0.95, Nucleated RBC % 0 Subjective: Seen and examined. Patient did not had blood in the Jones catheter tube after holding of bladder irrigation for 24 hours. Triple-lumen catheter was removed by urologist in the morning. No chest pain or shortness of breath. Objective: General: Alert, Oriented x3, Cooperative HEENT: Atraumatic, PERRLA, EOMI, Normocephalic Neck: Supple, No JVD, Negative Carotid Bruits Lungs: Clear to auscultation, No rhonchi, No wheeze, No rales, Diminished Cardiovascular: Regular rate, Regular Rhythm, Normal S1, Normal S2, No murmurs Abdomen: Bowel Sounds Present, Soft, Non Tender, Non-Distended : Triple-lumen catheter removed. Urine is clear. Patient voided urine after removal of catheter. Extremities: No edema, Capillary Refill Less than 3 Seconds Skin: No rashes, No breakdown Musculoskeletal: No Tenderness to Palpation of Joints or Extremities, Arthritic Changes Neurological: Cranial nerves II-XII grossly intact, Deep Tendon Reflexes 2+/4 and Symmetrical, Neuro grossly intact Psych/Mental Status: Normal Affect, Appropriate - Physical Exam Vitals/I&O's: Vital Signs Temp Pulse Resp BP Pulse Ox 99.1 F 100 16 133/75 H 94 04/04/19 08:33 04/04/19 08:37 04/04/19 08:33 04/04/19 08:33 04/04/19 08:33 Oxygen Delivery Method Room Air Weight: 219 lb 12.814 oz Body Mass Index (BMI) 29.0 Intake and Output for Last 24 Hours 04/02/19 04/03/19 04/04/19 23:59 23:59 23:59 Intake Total 3192.5 / 3192.5 1635.84 / 2035.84 500 / 500 Output Total 1750 / 1750 950 / 2050 1800 / 1800 Balance 1442.5 / 1442.5 685.84 / -14.16 -1300 / -1300 Laboratory Results 04/04/19 05:45: WBC 5.9, RBC 3.76 L, Hgb 11.0 L, Hct 34.4 L, MCV 91.5, MCH 29.3, MCHC 32.0, RDW Std Deviation 46.6 H, RDW Coeff of Carol 13.9, Plt Count 230, MPV 8.9, Immature Gran % (Auto) 0.300, Neut % (Auto) 64.7, Lymph % (Auto) 16.1 L, [place] % (Auto) 9.0, Eos % (Auto) 9.2 H, Baso % (Auto) 0.7, Absolute Neuts (auto) 3.8, Absolute Lymphs (auto) 0.95, Nucleated RBC % 0 Current Medications Acetaminophen (Tylenol) 650 mg PO Q6H PRN PRN PRN Reason: Pain Score 1-10/Temp > 100.7 F Albuterol Sulfate (Ventolin Aerosols) 2.5 mg INHALATION Q2H PRN PRN PRN Reason: Shortness of Breath/Wheezing Last Admin: 04/04/19 06:54 Dose: 2.5 mg Documented by: Atorvastatin Calcium (Lipitor) 10 mg PO QHS [facility] Last Admin: 04/03/19 21:30 Dose: 10 mg Documented by: Glucagon () 1 mg IM .X1 PRN PRN Reason: Hypoglycemia Guaifenesin (Robitussin) 20 ml PO Q4H PRN PRN PRN Reason: COUGH Dextrose (Dextrose 10%-Water) 250 mls @ 999 mls/hr IV .Q16M PRN; Protocol PRN Reason: HYPOGLYCEMIA Sodium Chloride () 250 mls @ 15 mls/hr IV .[id number] PRN PRN Reason: Saline Flush Sodium Chloride () 250 mls @ 15 mls/hr IV .[id number] PRN PRN Reason: Additional IVPB Infusion Losartan Potassium (Cozaar) 50 mg PO DAILY [facility] Last Admin: 04/04/19 08:24 Dose: 50 mg Documented by: Nutritional Formula (Lactose Free) (Ensure Enlive) 120 ml PO 4X/DAY [facility] Last Admin: 04/04/19 08:26 Dose: 120 ml Documented by: Ondansetron HCl (Zofran) 4 mg IV Q8H PRN PRN PRN Reason: NAUSEA/VOMITING Senna/Docusate Sodium (Senokot-S, Rula-Colace) 2 tablet PO BID PRN PRN PRN Reason: Constipation Last Admin: 04/03/19 18:37 Dose: 2 tablet Documented by: Sodium Chloride () 10 - 40 ml IV UD PRN PRN Reason: SALINE FLUSH Last Admin: 04/03/19 21:31 Dose: 10 ml Documented by: Discharge Diet: No Restrictions Discharge Activity: Return to Normal Activity May shower in (days): 1 Call your doctor if your incision/area has: Continuous Slow Oozing, Sudden Increased Bleeding, Increased Pain/ Swelling, Increased Redness, Foul Smelling Discharge Call your doctor if you observe: Fever of 101 or Higher Suture Line Care: Avoid Pulling/Pushing, Avoid Pinching/Bending Additional Dressing/Incision Instructions:: Change or remove dressing in2 days. Leave steri-strips in place for 1 week. Home Medications: Medications to take at Discharge losartan 50 mg tablet 50 mg PO QDAY #90 tab 11/13/18 atorvastatin 10 mg tablet 10 mg PO QHS #90 tab 03/01/19 Albuterol IH (ProAir) [Proair Hfa] 1 puff INHALATION Q4H PRN PRN 03/08/19 Docusate Sodium [Colace] 100 mg PO DAILY PRN PRN 03/08/19 Chelation Therapy 1 ea IV Q21D #0 04/04/19 Primary Care Physician: Dyllan Foster DO [Primary Care Provider] - Please Follow Up With: Dyllan Mancini MD - [phone] When: Contact me when cleared for filter removal Medical Necessity - Tobacco Use Smoking Status: Never smoker Meaningful Use Info Meaningful Use Diagnoses (Choose all that apply): None applicable Code Visit Inpatient E&M: 89169 Disch Hosp
--- NOTE | 2019-04-04 10:57 | PCM.DC.SUM ---
Discharge Date and Diagnosis - Problem List Patient Problems: Active and Suspected Problems (Last Reviewed 04/01/19 @ 10:13 by Abril Yan PA-C) Hematuria (Acute) Contraindication to anticoagulation therapy (Acute) Pulmonary embolus (Acute) Urinary retention (Acute) Date of Admission: 04/01/19 Date of Discharge: 04/04/19 - Primary Discharge Diagnosis Active and Suspected Problems (Last Reviewed 04/01/19 @ 10:13 by Abril Yan PA-C) Hematuria (Acute) Contraindication to anticoagulation therapy (Acute) Pulmonary embolus (Acute) Urinary retention (Acute) - Secondary Discharge Diagnosis Chronic Problems (Last Reviewed 04/01/19 @ 10:13 by Abril Yan PA-C) Bilateral pulmonary embolism (Chronic 03/2019) Deep vein thrombosis (DVT) (Chronic 03/2019) Non-ischemic cardiomyopathy (Chronic) Atherosclerotic heart disease of [place] coronary artery without angina pectoris (Chronic) CABG x 5 - Sequential WARD to LAD & D2, Sequential radial graft to D1 & lateral CX, free OLGA to PDA 05/15/2002 H/O coronary artery bypass surgery (Chronic 05/15/02) CABG x 5 - Sequential WARD to LAD & D2, Sequential radial graft to D1 & lateral CX, free OLGA to PDA 05/15/2002 Essential (primary) hypertension (Chronic) Hyperlipidemia (Chronic) Hospital Course and Treatment Operations: None Summary of Care Provided: The patient is a 63 year old M [] Patient Problems: Active and Suspected Problems (Last Reviewed 04/01/19 @ 10:13 by Abril Yan PA-C) Hematuria (Acute) Contraindication to anticoagulation therapy (Acute) Pulmonary embolus (Acute) Urinary retention (Acute) - Physical Exam Vitals/I&O's: Vital Signs Temp Pulse Resp BP Pulse Ox 99.1 F 100 16 133/75 H 94 04/04/19 08:33 04/04/19 08:37 04/04/19 08:33 04/04/19 08:33 04/04/19 08:33 Oxygen Delivery Method Room Air Weight: 219 lb 12.814 oz Body Mass Index (BMI) 29.0 Intake and Output for Last 24 Hours 04/02/19 04/03/19 04/04/19 23:59 23:59 23:59 Intake Total 3192.5 / 3192.5 1635.84 / 2035.84 500 / 500 Output Total 1750 / 1750 950 / 2050 1800 / 1800 Balance 1442.5 / 1442.5 685.84 / -14.16 -1300 / -1300 Laboratory Results 04/04/19 05:45: WBC 5.9, RBC 3.76 L, Hgb 11.0 L, Hct 34.4 L, MCV 91.5, MCH 29.3, MCHC 32.0, RDW Std Deviation 46.6 H, RDW Coeff of Carol 13.9, Plt Count 230, MPV 8.9, Immature Gran % (Auto) 0.300, Neut % (Auto) 64.7, Lymph % (Auto) 16.1 L, [place] % (Auto) 9.0, Eos % (Auto) 9.2 H, Baso % (Auto) 0.7, Absolute Neuts (auto) 3.8, Absolute Lymphs (auto) 0.95, Nucleated RBC % 0 Current Medications Acetaminophen (Tylenol) 650 mg PO Q6H PRN PRN PRN Reason: Pain Score 1-10/Temp > 100.7 F Albuterol Sulfate (Ventolin Aerosols) 2.5 mg INHALATION Q2H PRN PRN PRN Reason: Shortness of Breath/Wheezing Last Admin: 04/04/19 06:54 Dose: 2.5 mg Documented by: Atorvastatin Calcium (Lipitor) 10 mg PO QHS [facility]CLUDES [facility] Last Admin: 04/03/19 21:30 Dose: 10 mg Documented by: Glucagon () 1 mg IM .X1 PRN PRN Reason: Hypoglycemia Guaifenesin (Robitussin) 20 ml PO Q4H PRN PRN PRN Reason: COUGH Dextrose (Dextrose 10%-Water) 250 mls @ 999 mls/hr IV .Q16M PRN; Protocol PRN Reason: HYPOGLYCEMIA Sodium Chloride () 250 mls @ 15 mls/hr IV .[id number] PRN PRN Reason: Saline Flush Sodium Chloride () 250 mls @ 15 mls/hr IV .[id number] PRN PRN Reason: Additional IVPB Infusion Losartan Potassium (Cozaar) 50 mg PO DAILY [facility] Last Admin: 04/04/19 08:24 Dose: 50 mg Documented by: Nutritional Formula (Lactose Free) (Ensure Enlive) 120 ml PO 4X/DAY [facility]CLUD[facility] Last Admin: 04/04/19 08:26 Dose: 120 ml Documented by: Ondansetron HCl (Zofran) 4 mg IV Q8H PRN PRN PRN Reason: NAUSEA/VOMITING Senna/Docusate Sodium (Senokot-S, Rula-Colace) 2 tablet PO BID PRN PRN PRN Reason: Constipation Last Admin: 04/03/19 18:37 Dose: 2 tablet Documented by: Sodium Chloride () 10 - 40 ml IV UD PRN PRN Reason: SALINE FLUSH Last Admin: 04/03/19 21:31 Dose: 10 ml Documented by: Discharge Diet: No Restrictions Discharge Activity: Return to Normal Activity, May Not Drive - until he sees PCP May shower in (days): 1 Weight Bearing Status: Weight bearing as tolerated Call your doctor if your incision/area has: Continuous Slow Oozing, Sudden Increased Bleeding, Increased Pain/ Swelling, Increased Redness, Foul Smelling Discharge Call your doctor if you observe: Fever of 101 or Higher, Inability to urinate, Inability to have a bowel movement, Shortness of breath, Dizziness, Fainting spells, Swelling in the ankles, Chest pain, Prolonged hiccoughing, Increased palpitations (irregular heartbeat), Calf discomfort, Uncontrolled pain Suture Line Care: Avoid Pulling/Pushing, Avoid Pinching/Bending Additional Dressing/Incision Instructions:: Change or remove dressing in2 days. Leave steri-strips in place for 1 week. Home Medications: Medications to take at Discharge losartan 50 mg tablet 50 mg PO QDAY #90 tab 11/13/18 atorvastatin 10 mg tablet 10 mg PO QHS #90 tab 03/01/19 Albuterol IH (ProAir) [Proair Hfa] 1 puff INHALATION Q4H PRN PRN 03/08/19 Docusate Sodium [Colace] 100 mg PO DAILY PRN PRN 03/08/19 Chelation Therapy 1 ea IV Q21D #0 04/04/19 Primary Care Physician: Dyllan Foster DO [Primary Care Provider] - Please follow up with your Primary Care Physician in: In 1-2 weeks Please Follow Up With: Dyllan Mancini MD - [phone] When: Contact me when cleared for filter removal Please Follow Up With: Jorje Tyson MD When: in 2-3 weeks Please Follow Up With: Zach Lizama MD When: in 2 weeks Please Follow Up With: Mukesh Antony MD When: on 04/09/2019 Medical Necessity - Tobacco Use Smoking Status: Never smoker
--- NOTE | 2019-04-05 16:25 | CASEMGMT ---
MOISE MCFARLANE Discharge Follow-Up Phone Call. Antonia: 12 Strata: 3 Discharge Date: 04/04/19 Adm Dx: Hematuria Call to pt to inquire about how he has been doing since being discharged from the hospital. Pt states I guess I'm doing okay, just having some gas, but other than that okay. He states his urine has been proper color. Pt states he does not have any questions about the discharge instructions or medications. He states his made all the appts that they were instructed to make. Pt stated since his first surgery, he has been noticing an unusual taste in his mouth after coughing and inquired about what may be causing this. MOISE MCFARLANE informed pt this could be residual effects from the tube they placed during surgery or from the inhaler he has been using or other medication. MOISE MCFARLANE advised pt to discuss this with his PCP. Pt states he will do this. He denies other concerns/needs. MOISE MCFARLANE thanked pt for choosing [facility]. Francesca MCKEE RN, CM
== END 2019-04-04 13:06 | disposition home or self-care (01) | DRG 673 ==
LOC: ED 06:35 → MS3 08:11
PROVIDERS: Admitting Provider Internal Medicine; Emergency Provider Emergency Medicine; PCP Preventive Medicine Occupational Medicine; Visit Provider Internal Medicine
DX: R31.0 Gross hematuria (principal); I26.94 Multiple subsegmental thrombotic pulmonary emboli without acute cor pulmonale; D68.32 Hemorrhagic disorder due to extrinsic circulating anticoagulants; I42.8 Other cardiomyopathies; D62 Acute posthemorrhagic anemia; I82.451 Acute embolism and thrombosis of right peroneal vein; I27.82 Chronic pulmonary embolism; T45.515A Adverse effect of anticoagulants, initial encounter; R33.9 Retention of urine, unspecified; Y92.9 Unspecified place or not applicable; I25.10 Atherosclerotic heart disease of native coronary artery without angina pectoris; I82.461 Acute embolism and thrombosis of right calf muscular vein; I10 Essential (primary) hypertension; E78.00 Pure hypercholesterolemia, unspecified; Z95.1 Presence of aortocoronary bypass graft; Z79.01 Long term (current) use of anticoagulants
CPT/HCPCS: 36415; 37191; 51702; 71045; 76937; 80048; 81001; 83735; 85014; 85018; 85025; 85610; 85730; 93005; 93970; 94640; 97802; 99152; 99153; 99251; 99284; J7030; Q9967; A4216; C1769; C1880; G0463

== ENCOUNTER → 2019-04-09 09:40 | Outpatient (CLI) | payer BC, SELFPAY ==
[2019-04-09 09:03] VITALS: BMI 29.2
--- NOTE | 2019-04-09 10:15 | VDLE_ITS ---
Reason For Study: DVT RIGHT LEFT GSV is normal. GSV is normal. CFV is compressible, spontaneous, phasic, CFV is compressible, spontaneous, phasic, competent and demonstrates normal competent, and demonstrates normal augmentation. augmentation. FV is compressible, spontaneous, phasic, FV is compressible, spontaneous, phasic, competent and demonstrates normal competent and demonstrates normal augmentation. augmentation. POP V is compressible, spontaneous, phasic, POP V is compressible, spontaneous, phasic, competent and demonstrates normal competent and demonstrates normal augmentation. augmentation. T/P Trunk is compressible. T/P Trunk is compressible. PTV is compressible. PTV is compressible. Acute deep vein thrombosis is noted in the LT PerV is compressible. right peroneal vein. Acute deep vein thrombosis is noted in the Acute deep vein thrombosis is noted in the left soleus vein. right soleus vein. Procedure Exam performed in department. Compared to 04/01/2019. A preliminary report was called and/or faxed to [facility]. Interpretation Summary Acute deep venous thrombosis right peroneal and soleus veins. Acute deep venous thrombosis left soleus vein which is new from April 01, 2019 Patent and compressible bilateral great saphenous veins Ordering Physician: Mukesh Antony Referring Physician: Dyllan Foster Performed By: Beth Lott RVT
[2019-04-09 11:07] LABS: D-Dimer Quantitative (DVT/PE) 2.86 FEU/ug/m (0.27-0.49)
== END ==
PROVIDERS: PCP Preventive Medicine Occupational Medicine; Referring Provider Internal Medicine Cardiovascular Disease; Visit Provider Internal Medicine Cardiovascular Disease
DX: I82.409 Acute embolism and thrombosis of unspecified deep veins of unspecified lower extremity (principal)
CPT/HCPCS: 36415; 85379; 93970

== ENCOUNTER → 2019-06-25 06:59 | Outpatient (CLI) | payer MEDICARE, OTHER, SELFPAY ==
[2019-04-17 15:16] VITALS: BMI 43.6
[2019-05-15 10:49] VITALS: BMI 43.9
--- NOTE | 2019-06-25 07:00 | VDLE_ITS ---
Reason For Study: DVT RIGHT LEFT GSV is normal. GSV is normal. CFV is compressible, spontaneous, phasic, CFV is compressible, spontaneous, phasic, competent and demonstrates normal competent, and demonstrates normal augmentation. augmentation. FV is compressible, spontaneous, phasic, FV is compressible, spontaneous, phasic, competent and demonstrates normal competent and demonstrates normal augmentation. augmentation. POP V is compressible, spontaneous, phasic, POP V is compressible, spontaneous, phasic, competent and demonstrates normal competent and demonstrates normal augmentation. augmentation. T/P Trunk is compressible. T/P Trunk is compressible. PTV is compressible. PTV is compressible. RT PerV is compressible. LT PerV is compressible. Procedure Exam performed in department. The exam was diagnostic. A preliminary report was called and/or faxed to [facility]. Interpretation Summary No evidence for acute deep venous thrombosis bilateral lower extremities with patent and compressible bilateral great saphenous veins. Resolution of previous DVT noted April 09, 2019 Ordering Physician: Dyllan Mancini Performed By: Kamron Sexton RVT
[2019-06-25 07:15] LABS: Absolute Lymphocyte Count 1.11 X10^3/uL (0.83-4.51); Absolute Neutrophil Count 3.8 X10^3/uL (2.0-7.7); Basophil# 0.05 X10^3/uL; Basophil% 0.9 % (0-1); Eosinophil# 0.22 X10^3/uL; Eosinophils% 3.8 % (0-5); Hematocrit 48.4 % (40-54); Hemoglobin 15.8 g/dL (13.0-16.5); Lymphocyte # 1.11 X10^3/ul (4.0); Lymphocyte % 19.1 % (19-41); Mean Corp Hgb Conc 32.6 g/dL (32-36); Mean Corpuscular Hgb 28.1 pg (27.0-32.0); Mean Corpuscular Volume 86.1 fL (80-94); Mean Platelet Vol. 9.6 fl (6.2-12.0); Monocyte# 0.66 X10^3/uL; Monocyte% 11.4 % (0-10); NRBC Flagged by Analyzer 0 % (0-5); Neutrophil # 3.75 X10^3/uL (2.7-7.7); Neutrophil % 64.5 % (47-70); Platelet Count 192 K/mm3 (150-450); RBC Distribution Width CV 13.4 % (11.6-14.6); RBC Distribution Width SD 41.7 fl (35.1-43.9); Red Blood Count 5.62 M/mm3 (4.6-6.2); White Blood Count 5.8 K/mm3 (4.4-11.0)
[2019-06-25 07:26] LABS: Fibrinogen 439 mg/dl (203-444)
[2019-06-25 07:27] LABS: International Normalized Ratio 1.1; Prothrombin Time (Protime)PT. 13.6 SECONDS (11.7-14.9)
[2019-06-25 07:28] LABS: Partial Thromboplast Time 31.8 Seconds (24.1-36.2)
[2019-06-25 07:29] LABS: D-Dimer Quantitative (DVT/PE) 0.43 FEU/ug/m (0.27-0.49)
[2019-06-25 07:32] LABS: ALB/GLOB Ratio 1.1 RATIO (0.9-2.4); AST(SGOT) 18 U/L (15-37); Alanine Aminotransfer ALT/SGPT 28 U/L (16-61); Albumin, Serum 3.5 g/dL (3.2-5.0); Alkaline Phosphatase 115 U/L (45-117); Anion Gap 5 (5-15); BUN 18 mg/dL (7-18); BUN/Creat Ratio 20.8 RATIO (10-20); Calcium,Total 8.7 mg/dL (8.5-10.1); Chloride 112 mmol/L (98-107); Creatinine, Serum 0.87 mg/dL (0.70-1.30); EST Glomerular Filtration Rate 94 mL/min (>60); Est Glom Filt Rate - Afr Amer 114 mL/min (>60); Globulin 3.3 g/dL (2.2-4.2); Glucose 116 mg/dL (74-106); LDH 175 U/L (87-241); Potassium 4.1 mmol/L (3.5-5.1); Protein, Total 6.8 g/dL (6.4-8.2); Sodium Level 141 mmol/L (136-145)
[2019-06-25 15:06] LABS: Xtra Tube EP Lab EXTRA TUBE
== END ==
PROVIDERS: Internal Medicine Medical Oncology; PCP Preventive Medicine Occupational Medicine; Referring Provider Surgery; Visit Provider Surgery
DX: I26.99 Other pulmonary embolism without acute cor pulmonale (principal); I82.409 Acute embolism and thrombosis of unspecified deep veins of unspecified lower extremity
CPT/HCPCS: 36415; 80053; 83615; 85025; 85379; 85384; 85610; 85730; 93970

== ENCOUNTER 2019-07-10 08:08 | Day surgery (SDC) | payer MEDICARE, OTHER, SELFPAY ==
--- NOTE | 2019-07-05 01:15 | HP_ITS ---
Intake Vital Signs 07/05/19 BMI 44.6 07/05/19 Height 6 ft 5 in 07/05/19 Weight: 229 lb 4 oz 07/05/19 BMI 27.1 07/05/19 BP 130/75 H 07/05/19 Blood Pressure Location Rt brachial 07/05/19 Position Sitting 07/05/19 Respiration 20 H 07/05/19 Pulse 80 07/05/19 Temp 97.4 F L 07/05/19 Temp Source Temporal 07/05/19 Pulse Oximetry (%) 98 Intake Visit Reasons: FILTER REMOVAL Chief Complaint: discuss filter removal Project Officer Required: No Is patient in pain?: No Allergies amoxicillin Allergy (Verified 07/05/19 13:03) rash on feet after 5 days of treatment ampicillin Allergy (Verified 07/05/19 13:03) Rash on feet after 5 days rosuvastatin [From Crestor] Adverse Reaction (Severe, Verified 07/05/19 13:03) Vision changes/eye pain/knee pain ezetimibe [From Zetia] Adverse Reaction (Intermediate, Verified 07/05/19 13:03) Severe Constipation ciprofloxacin [From Cipro] Adverse Reaction (Verified 07/05/19 13:03) Pain in joints gemfibrizol Adverse Reaction (Severe, Uncoded 06/27/19 08:36) Vision changes Medications losartan 50 mg tablet 50 mg PO QDAY #90 tab 11/13/18 [Rx Confirmed 07/05/19] atorvastatin 10 mg tablet 10 mg PO QHS #90 tab 03/01/19 [Rx Confirmed 07/05/19] Albuterol IH (ProAir) [Proair Hfa] 1 puff INHALATION Q4H PRN PRN 03/08/19 [History Confirmed 07/05/19] Docusate Sodium [Colace] 100 mg PO DAILY PRN PRN 03/08/19 [History Confirmed 07/05/19] apixaban 2.5 mg tablet 2.5 mg PO BID #60 tab 04/09/19 [Rx Confirmed 07/05/19] PFSH Medical History (Updated 07/05/19 @ 13:[address] Dyllan Mancini MD) Presence of inferior vena cava filter (Acute) Non-ischemic cardiomyopathy (Chronic) Atherosclerotic heart disease of [place] coronary artery without angina pectoris (Chronic) Essential (primary) hypertension (Chronic) Hyperlipidemia (Chronic) Dyspnea on exertion (Resolved) History of lipoma removal (Resolved) Palpitations (Resolved) Surgical History (Updated 07/05/19 @ 13:03 by Cecy Glass) H/O coronary artery bypass surgery (Chronic 05/15/02) History of colonoscopy (Acute ~2012) History of inferior vena caval filter placement (Acute ~03/2019) History of Achilles tendon repair (Resolved) History of arthroscopy of right knee (Resolved) History of back surgery (Resolved) History of left inguinal hernia repair (Resolved) History of tonsillectomy (Resolved) History of transurethral resection of prostate (Resolved 03/2019) Family History Father S/P CABG (coronary artery bypass graft), Onset Age: 51 CAD (coronary artery disease) Multiple coronary stents Myocardial infarction Diabetes Mother CVA (cerebral vascular accident) Multiple CVA's Sister Cancer Brother Diabetes Social History (Updated 07/05/19 @ 13:[address] Dyllan Mancini MD) Smoking Status: Never smoker alcohol intake: never caffeine: No HPI HPI HPI: RICHARD HENAO, is a 64 M who presents to the office today for HPI HPI Surgical H&P: Yes HPI: RICHARD HENAO, is a 64 M who presents to the office today for surgical consultation for removal of a inferior [place] vena cava filter. 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 Zach Lizama and he is referred back by him. The patient's most recent bilateral lower extremity venous duplex exam was performed at the [facility] on June 25, 2019 and was negative for bilateral DVT. It is of note that because of pulmonary embolization and right lower extremity deep venous thrombosis and contraindication to anticoagulation at that time on April 02, 2019 I placed this filter for him. That was an uncomplicated approach and the patient is done well. He has no specific complaints. No chest pain no shortness of breath. No particular leg pain or swelling. ROS General General: Yes weight change; no appetite, fatigue, colon cancer, breast cancer or weakness HEENT HEENT: No difficulty swallowing, eye injury, eye surgery, swollen glands or hoarseness Endo Endocrine: No thyroid disease, diabetes mellitus, thyroid cancer, Hair loss, heat intolerance or cold intolerance Musc Musculoskeletal: Yes back problems; no arthritis, rheumatoid arthritis, gout or joint pain Cardio Cardiovascular: Yes high blood pressure; no murmur, pacemaker, heart disease, atrial fibrillation, heart attack, heart stent, palpitations, shortness of breat with exertion or chest pain Psych Psychiatric: No depression, anxiety or hearing voices Resp Respiratory: No shortness of breath, No sleep apnea, No cough, No COPD, No asthma, No emphysema, No wheezing Gastro Gastrointestinal: No abdominal pain, No nausea or vomiting, No diarrhea, No constipation, No blood in stool, No acid reflux, No hemorrhoids, Yes ulcers, No gallbladder problem, No black,tarry stools Joe Hematologic: Yes blood thinners, No blood disorders, No bleeding, No anemia, Yes blood clots Neuro Neurologic: No weakness Exam Const General: cooperative, healthy appearing, comfortable, no acute distress Nutritional Appearance: obese Resp Effort & Inspection: normal respiratory effort Auscultation: clear to auscultation bilaterally Cardio Rate: regular rate Rhythm: regular rhythm Heart Sounds: no murmurs GI Palpation: soft Extrem General: no calf tenderness Psych Affect: normal affect Assessment & Plan Problems 1. Presence of inferior vena cava filter Z95.828 Plan Presence of indwelling inferior vena cava filter. I have discussed with the patient the technique, benefit, risk and alternatives of filter retrieval. No guarantees of success have been offered. We will have the patient hold his Eliquis 24 hours preintervention. He has had an opportunity to ask and have questions answered. I would not be opposed to him continuing Eliquis for a brief period of time post intervention. His long-term therapy recommendations will be as per Dr Lizama and or his primary care physician Dr. Dyllan Foster Cc: Dr. Zach Lizama and Dr. Dyllan Mancini M.D., F.A.C.S. Coding Level of Care Code Off vis,est,level 2 Diagnoses Presence of inferior vena cava filter Z95.828 07/05/19 1315 <Electronically signed by Dyllan altamirano MD> Date _ Dyllan Mancini MD
[2019-07-05 13:03] VITALS: BMI 44.6
[2019-07-09 13:26] VITALS: BMI 27.1
--- NOTE | 2019-07-10 08:33 | PCM.HP.BLA ---
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: No Is patient in pain?: No Allergies amoxicillin Allergy (Verified 07/05/19 13:03) rash on feet after 5 days of treatment ampicillin Allergy (Verified 07/05/19 13:03) Rash on feet after 5 days rosuvastatin [From Crestor] Adverse Reaction (Severe, Verified 07/05/19 13:03) Vision changes/eye pain/knee pain ezetimibe [From Zetia] Adverse Reaction (Intermediate, Verified 07/05/19 13:03) Severe Constipation ciprofloxacin [From Cipro] Adverse Reaction (Verified 07/05/19 13:03) Pain in joints gemfibrizol Adverse Reaction (Severe, Uncoded 06/27/19 08:36) Vision changes Medications losartan 50 mg tablet 50 mg PO QDAY #90 tab 11/13/18 [Rx Confirmed 07/05/19] atorvastatin 10 mg tablet 10 mg PO QHS #90 tab 03/01/19 [Rx Confirmed 07/05/19] Albuterol IH (ProAir) [Proair Hfa] 1 puff INHALATION Q4H PRN PRN 03/08/19 [History Confirmed 07/05/19] Docusate Sodium [Colace] 100 mg PO DAILY PRN PRN 03/08/19 [History Confirmed 07/05/19] apixaban 2.5 mg tablet 2.5 mg PO BID #60 tab 04/09/19 [Rx Confirmed 07/05/19] [facility], [facility] Medical History (Updated 07/05/19 @ 13:[address] Dyllan Mancini MD) Presence of inferior vena cava filter (Acute) Non-ischemic cardiomyopathy (Chronic) Atherosclerotic heart disease of [place] coronary artery without angina pectoris (Chronic) Essential (primary) hypertension (Chronic) Hyperlipidemia (Chronic) Dyspnea on exertion (Resolved) History of lipoma removal (Resolved) Palpitations (Resolved) Surgical History (Updated 07/05/19 @ 13:03 by Cecy Glass) H/O coronary artery bypass surgery (Chronic 05/15/02) History of colonoscopy (Acute ~2012) History of inferior vena caval filter placement (Acute ~03/2019) History of Achilles tendon repair (Resolved) History of arthroscopy of right knee (Resolved) History of back surgery (Resolved) History of left inguinal hernia repair (Resolved) History of tonsillectomy (Resolved) History of transurethral resection of prostate (Resolved 03/2019) Family History Father S/P CABG (coronary artery bypass graft), Onset Age: 51 CAD (coronary artery disease) Multiple coronary stents Myocardial infarction Diabetes Mother CVA (cerebral vascular accident) Multiple CVA's Sister Cancer Brother Diabetes Social History (Updated 07/05/19 @ 13:[address] Dyllan Mancini MD) Smoking Status: Never smoker alcohol intake: never caffeine: No HPI HPI HPI: RICHARD HENAO, is a 64 M who presents to the office today for HPI HPI Surgical H&P: Yes HPI: RICHARD HENAO, is a 64 M who presents to the office today for surgical consultation for removal of a inferior [place] vena cava filter. Patient's integration director oncologist is Dr. Zach Lizama and he is referred back by him. The patient's most recent bilateral lower extremity venous duplex exam was performed at the [facility] on June 25, 2019 and was negative for bilateral DVT. It is of note that because of pulmonary embolization and right lower extremity deep venous thrombosis and contraindication to anticoagulation at that time on April 02, 2019 I placed this filter for him. That was an uncomplicated approach and the patient is done well. He has no specific complaints. No chest pain no shortness of breath. No particular leg pain or swelling. ROS General General: Yes weight change; no appetite, fatigue, colon cancer, breast cancer or weakness HEENT HEENT: No difficulty swallowing, eye injury, eye surgery, swollen glands or hoarseness Endo Endocrine: No thyroid disease, diabetes mellitus, thyroid cancer, Hair loss, heat intolerance or cold intolerance Musc Musculoskeletal: Yes back problems; no arthritis, rheumatoid arthritis, gout or joint pain Cardio Cardiovascular: Yes high blood pressure; no murmur, pacemaker, heart disease, atrial fibrillation, heart attack, heart stent, palpitations, shortness of breat with exertion or chest pain Psych Psychiatric: No depression, anxiety or hearing voices Resp Respiratory: No shortness of breath, No sleep apnea, No cough, No COPD, No asthma, No emphysema, No wheezing Gastro Gastrointestinal: No abdominal pain, No nausea or vomiting, No diarrhea, No constipation, No blood in stool, No acid reflux, No hemorrhoids, Yes ulcers, No gallbladder problem, No black,tarry stools Joe Hematologic: Yes blood thinners, No blood disorders, No bleeding, No anemia, Yes blood clots Neuro Neurologic: No weakness Exam Const General: cooperative, healthy appearing, comfortable, no acute distress Nutritional Appearance: obese Resp Effort & Inspection: normal respiratory effort Auscultation: clear to auscultation bilaterally Cardio Rate: regular rate Rhythm: regular rhythm Heart Sounds: no murmurs GI Palpation: soft Extrem General: no calf tenderness Psych Affect: normal affect Assessment & Plan Problems 1. Presence of inferior vena cava filter Z95.828 Plan Presence of indwelling inferior vena cava filter. I have discussed with the patient the technique, benefit, risk and alternatives of filter retrieval. No guarantees of success have been offered. We will have the patient hold his Eliquis 24 hours preintervention. He has had an opportunity to ask and have questions answered. I would not be opposed to him continuing Eliquis for a brief period of time post intervention. His long-term therapy recommendations will be as per Dr Lizama and or his primary care physician Dr. Dyllan Foster Cc: Dr. Zach Lizama and Dr. Dyllan Mancini M.D., F.A.C.S. Coding Level of Care Code Off vis,est,level 2 Diagnoses Presence of inferior vena cava filter Z95.828 07/05/19 1315 <Electronically signed by Dyllan Mancini MD> Date Dyllan Mancini MD I have re-examined the patient. There are no clinical changes since date of exam. Procedure Criteria Procedure Type: Elective COVID Risk Discussion: The surgeon/proceduralist and patient have discussed in detail the risk of exposure to and/or potential harm posed by the COVID-19 virus with having a surgery/procedure at this time versus the risk of delaying the surgery/procedure. It is not possible to know either the risk of delaying the surgery or procedure or chance of getting an infection with perfect accuracy, but a joint decision was made between the patient and the surgeon/proceduralist to proceed at this time with the scheduled surgery/procedure as indicated on the consent form.
--- NOTE | 2019-07-10 10:07 | PCM.OPRPT ---
Problem List (1) Presence of inferior vena cava filter Status: Acute Report of Operation Date of Procedure: 07/10/19 Pre-Operative Diagnosis: Presence of inferior vena cava filter Post-Operative Diagnosis: Same Surgery/Procedure Performed:: Inferior venacavogram with inferior vena cava Samantha filter retrieval Description of Surgical Findings:: Timeout and informed consent was obtained. 64-year-old gentleman was taken to the special procedure lab placed upon the table. The right neck was sterilely prepped and draped. 50 mcg of fentanyl and 1 mg of Versed were given as intravenous sedation. Under ultrasound guidance 2% lidocaine was instilled of local anesthetic. Total 7 cc was used. Then a micropuncture needle was inserted under ultrasound guidance of the right internal jugular vein followed by Seldinger wire advancement. Small incision was made and I exchanged out over a micropuncture sheath with a J-wire then placed a 5 Luxembourger short sheath dilator. An 035 J-wire was used to place a 5 [place] universal flush catheter into the left common iliac vein. Using Isovue contrast 3 to 15 cc a second for 20 cc an inferior venacavogram was obtained. The inferior venacavogram demonstrated widely patent inferior vena cava. The proximal bilateral common iliacs were widely patent. The filter appeared to be upright and there was no visible thrombus. So then I removed the flush catheter. Predilated the tract with a 9 Luxembourger dilator. Then placed the 8 Luxembourger retrieval sheath mechanism. A single snare was used to trap the top of the Samantha filter it was then compressed with the internal sheath and then external sheath a gentle pull was used to remove it from the vena cava. Was then withdrawn through the external sheath. The filter was removed and inspected. All limbs appear to be appropriate and intact. The final sheath was removed pressure was held for hemostasis sterile dressings were applied. Blood loss was minimal no apparent complications he tolerated the procedure well he was taken back to his recovery area in satisfactory condition. Impression Normal inferior venacavogram with successfully retrieved inferior vena cava filter. Dyllan Mancini M.D., F.A.C.S. Type of Anesthesia:: IV Sedation, Local
== END 2019-07-10 11:35 | disposition home or self-care (01) ==
LOC: CLSP 08:10
PROVIDERS: PCP Preventive Medicine Occupational Medicine; Referring Provider Surgery; Visit Provider Surgery
DX: Z45.2 Encounter for adjustment and management of vascular access device (principal); I25.10 Atherosclerotic heart disease of native coronary artery without angina pectoris; I42.8 Other cardiomyopathies; E78.5 Hyperlipidemia, unspecified; Z95.828 Presence of other vascular implants and grafts; Z86.711 Personal history of pulmonary embolism; Z86.718 Personal history of other venous thrombosis and embolism; Z79.01 Long term (current) use of anticoagulants
CPT/HCPCS: 75825; 37193; 76937; 99152; 99153; C1773; J7040; Q9967; C1769

== ENCOUNTER → 2019-10-21 07:47 | Outpatient (CLI) | payer MEDICARE, OTHER, SELFPAY ==
[2019-10-08 08:30] VITALS: BMI 27.7
[2019-10-21 08:47] LABS: AST(SGOT) 28 U/L (15-37); Alanine Aminotransfer ALT/SGPT 41 U/L (16-61); Albumin, Serum 3.7 g/dL (3.2-5.0); Alkaline Phosphatase 107 U/L (45-117); Bilirubin, Direct 0.13 mg/dL (0.00-0.30); Cholesterol 174 mg/dL (200); Globulin 3.3 g/dL (2.2-4.2); High Density Lipoprotein 33 mg/dL; Triglycerides 262 mg/dL; Very Low Density Lipoprotein 52 mg/dL (5-40)
== END ==
PROVIDERS: PCP Preventive Medicine Occupational Medicine; Referring Provider Nurse Practitioner Family; Visit Provider Nurse Practitioner Family
DX: I25.10 Atherosclerotic heart disease of native coronary artery without angina pectoris (principal); I42.8 Other cardiomyopathies; I10 Essential (primary) hypertension; Z95.1 Presence of aortocoronary bypass graft
CPT/HCPCS: 36415; 80061; 80076

== ENCOUNTER → 2019-12-17 10:04 | Outpatient (CLI) | payer MEDICARE, OTHER, SELFPAY ==
[2019-10-08 08:30] VITALS: BMI 27.7
[2019-12-17 10:54] LABS: PSA,Total- Diagnostic 3.75 ng/mL (0.0-4.0)
== END ==
PROVIDERS: PCP Preventive Medicine Occupational Medicine; Referring Provider Urology; Visit Provider Urology
DX: R97.20 Elevated prostate specific antigen [PSA] (principal)
CPT/HCPCS: 36415; 84153

== ENCOUNTER 2020-04-17 09:50 | Outpatient (RCR) | payer MEDICARE, OTHER, SELFPAY ==
[2019-10-08 08:30] VITALS: BMI 27.7
[2020-04-17] MEDS: COVID-19 VACC, MRNA(PFIZER)/PF 30 MCG/0.3 ML SYRINGE IM (17:15)
[2020-05-12] MEDS: COVID-19 VACC, MRNA(PFIZER)/PF 30 MCG/0.3 ML SYRINGE IM (14:27)
== END 2020-07-14 23:59 ==
LOC: IMMUN 09:50
PROVIDERS: PCP Preventive Medicine Occupational Medicine; Visit Provider Family Medicine
DX: Z23 Encounter for immunization (principal)
CPT/HCPCS: 0001A; 0002A; 91300

== ENCOUNTER → 2020-05-04 07:43 | Outpatient (CLI) | payer MEDICARE, OTHER, SELFPAY ==
[2019-10-08 08:30] VITALS: BMI 27.7
[2020-05-04 09:36] LABS: AST(SGOT) 18 U/L (15-37); Alanine Aminotransfer ALT/SGPT 28 U/L (16-61); Albumin, Serum 3.5 g/dL (3.2-5.0); Alkaline Phosphatase 103 U/L (45-117); Bilirubin, Direct 0.16 mg/dL (0.00-0.30); Cholesterol 224 mg/dL (200); Globulin 3.4 g/dL (2.2-4.2); High Density Lipoprotein 32 mg/dL; Protein, Total 6.9 g/dL (6.4-8.2); Triglycerides 203 mg/dL; Very Low Density Lipoprotein 41 mg/dL (5-40)
== END ==
PROVIDERS: PCP Preventive Medicine Occupational Medicine; Referring Provider Nurse Practitioner Family; Visit Provider Nurse Practitioner Family
DX: E78.00 Pure hypercholesterolemia, unspecified (principal)
CPT/HCPCS: 36415; 80061; 80076

== ENCOUNTER → 2020-08-11 06:55 | Outpatient (CLI) | payer MEDICARE, OTHER, SELFPAY ==
[2020-05-12 14:15] VITALS: BMI 27.0
[2020-08-11 08:09] LABS: AST(SGOT) 29 U/L (15-37); Alanine Aminotransfer ALT/SGPT 37 U/L (16-61); Albumin, Serum 3.7 g/dL (3.2-5.0); Alkaline Phosphatase 118 U/L (45-117); Bilirubin, Direct 0.18 mg/dL (0.00-0.30); Cholesterol 179 mg/dL (200); Globulin 3.3 g/dL (2.2-4.2); High Density Lipoprotein 33 mg/dL; Triglycerides 150 mg/dL; Very Low Density Lipoprotein 30 mg/dL (5-40)
== END ==
PROVIDERS: PCP Preventive Medicine Occupational Medicine; Referring Provider Internal Medicine Cardiovascular Disease; Visit Provider Internal Medicine Cardiovascular Disease
DX: E78.5 Hyperlipidemia, unspecified (principal); Z95.1 Presence of aortocoronary bypass graft; I25.10 Atherosclerotic heart disease of native coronary artery without angina pectoris
CPT/HCPCS: 36415; 80061; 80076

== ENCOUNTER → 2020-08-17 07:08 | Outpatient (CLI) | payer MEDICARE, OTHER, SELFPAY ==
[2020-05-12 14:15] VITALS: BMI 27.0
--- NOTE | 2020-08-17 14:57 | STRESSREP_ITS ---
Stress Test Report Exercise myocardial perfusion stress test. 65-year-old male with a history of coronary artery bypass surgery. Stress protocol: Resting EKG demonstrates normal sinus rhythm with a rate of 69 bpm normal intervals are noted resting blood pressure is 152/88. The patient exercised according to regular Cosme protocol for total of 6 minutes patient completed stage II of the Cosme protocol the maximum heart rate attained was 146 bpm which was 94% of max infected heart rate the maximum workload was 7 metabolic equivalents. At rest there were no ST or T wave changes noted to suggest ischemia and at peak exercise upsloping ST changes were noted which did not meet the criteria for ischemia. No clinical angina was noted. The peak blood press ure was 232/100 mmHg. This was a hypertensive response to exercise. Myocardial perfusion protocol. 14.4 mCi of technetium 99m sestamibi was injected at rest. The patient exercised according to regular Cosme protocol for total duration of 6 minutes and at peak exercise 44.7 mCi of technetium 99m sestamibi was injected stress images were obtained stress and rest images were reconstructed in comparing the short axis vertical long horizontal long axis. Gated images were also obtained to Perfusion SPECT analysis: Review of the stress images demonstrate normal uptake of tracer noted in all areas of the myocardium. The resting images similarly demonstrate normal uptake of tracer noted in all areas of the myocardium. No areas of reversibility are noted suggest ischemia and no previous infarct is noted. Gated SPECT analysis: The gated ejection fraction is 54%. Conclusion: Normal exercise myocardial perfusion stress test at a moderate workload. Hypertensive response to exercise.
== END ==
PROVIDERS: PCP Preventive Medicine Occupational Medicine; Referring Provider Internal Medicine Cardiovascular Disease; Visit Provider Internal Medicine Cardiovascular Disease
DX: I25.10 Atherosclerotic heart disease of native coronary artery without angina pectoris (principal); Z95.1 Presence of aortocoronary bypass graft
CPT/HCPCS: 78452; 93017; A9500; A4216

== ENCOUNTER → 2020-12-15 09:17 | Outpatient (CLI) | payer MEDICARE, OTHER, SELFPAY ==
[2020-12-15 11:06] LABS: PSA,Total- Diagnostic 4.73 ng/mL (0.0-4.0)
== END ==
PROVIDERS: PCP Preventive Medicine Occupational Medicine; Visit Provider Urology
DX: R97.20 Elevated prostate specific antigen [PSA] (principal)
CPT/HCPCS: 36415; 84153

== ENCOUNTER → 2021-05-28 | Outpatient (CLI) | payer MEDICARE, OTHER, SELFPAY ==
[2021-05-28 08:29] LABS: AST(SGOT) 25 U/L (15-37); Alanine Aminotransfer ALT/SGPT 38 U/L (16-61); Albumin, Serum 3.7 g/dL (3.2-5.0); Alkaline Phosphatase 99 U/L (45-117); Bilirubin, Direct 0.19 mg/dL (0.00-0.30); Cholesterol 170 mg/dL (200); Globulin 3.3 g/dL (2.2-4.2); High Density Lipoprotein 37 mg/dL; Triglycerides 106 mg/dL; Very Low Density Lipoprotein 21 mg/dL (5-40)
== END | disposition home or self-care (01) ==
PROVIDERS: PCP Preventive Medicine Occupational Medicine; Referring Provider Nurse Practitioner Gerontology; Visit Provider Nurse Practitioner Gerontology
DX: E78.00 Pure hypercholesterolemia, unspecified (principal); I25.10 Atherosclerotic heart disease of native coronary artery without angina pectoris
CPT/HCPCS: 36415; 80061; 80076

== ENCOUNTER → 2021-06-14 | Outpatient (CLI) | payer MEDICARE, OTHER, SELFPAY ==
[2021-06-14 10:23] LABS: Anion Gap 6 (5-15); BUN 20 mg/dL (7-18); BUN/Creat Ratio 20.3 RATIO (10-20); Calcium,Total 8.5 mg/dL (8.5-10.1); Chloride 106 mmol/L (98-107); Creatinine, Serum 0.99 mg/dL (0.70-1.30); EST Glomerular Filtration Rate 80 mL/min (>60); Est Glom Filt Rate - Afr Amer 97 mL/min (>60); Glucose 124 mg/dL (74-106); Magnesium 2.2 mg/dL (1.6-2.6); Potassium 3.9 mmol/L (3.5-5.1); Sodium Level 140 mmol/L (136-145)
== END | disposition home or self-care (01) ==
LOC: LAB 09:17
PROVIDERS: PCP Preventive Medicine Occupational Medicine; Referring Provider Nurse Practitioner Gerontology; Visit Provider Nurse Practitioner Gerontology
DX: R00.2 Palpitations (principal); I25.10 Atherosclerotic heart disease of native coronary artery without angina pectoris; I10 Essential (primary) hypertension; Z86.711 Personal history of pulmonary embolism
CPT/HCPCS: 36415; 80048; 83735

== ENCOUNTER → 2021-11-09 | Outpatient (CLI) | payer MEDICARE, OTHER, SELFPAY ==
[2021-11-09 10:33] LABS: PSA,Total- Diagnostic 3.29 ng/mL (0.0-4.0)
== END | disposition home or self-care (01) ==
LOC: LAB 08:52
PROVIDERS: PCP Preventive Medicine Occupational Medicine; Visit Provider Urology
DX: N40.1 Benign prostatic hyperplasia with lower urinary tract symptoms (principal)
CPT/HCPCS: 36415; 84153

== ENCOUNTER → 2021-11-25 | Outpatient (CLI) | payer MEDICARE, OTHER, SELFPAY ==
[2021-11-25 07:51] LABS: AST(SGOT) 23 U/L (15-37); Alanine Aminotransfer ALT/SGPT 34 U/L (16-61); Albumin, Serum 3.6 g/dL (3.2-5.0); Alkaline Phosphatase 111 U/L (45-117); Bilirubin, Direct 0.22 mg/dL (0.00-0.30); Cholesterol 157 mg/dL (200); Globulin 2.9 g/dL (2.2-4.2); High Density Lipoprotein 34 mg/dL; Protein, Total 6.5 g/dL (6.4-8.2); Triglycerides 156 mg/dL; Very Low Density Lipoprotein 31 mg/dL (5-40)
== END | disposition home or self-care (01) ==
LOC: LAB 07:09
PROVIDERS: PCP Preventive Medicine Occupational Medicine; Referring Provider Internal Medicine Cardiovascular Disease; Visit Provider Internal Medicine Cardiovascular Disease
DX: E78.00 Pure hypercholesterolemia, unspecified (principal)
CPT/HCPCS: 36415; 80061; 80076

== ENCOUNTER → 2022-05-05 | Outpatient (CLI) | payer MEDICARE, OTHER, SELFPAY ==
--- NOTE | 2022-05-05 18:17 | STRESSREP ---
Stress Test Report Exercise myocardial perfusion stress test. 66-year-old male with a history of coronary artery disease status post coronary bypass surgery. Stress protocol: Resting EKG demonstrates normal sinus rhythm with a rate of 71 bpm resting blood pressure is 142/88 mmHg. The patient exercised according to the regular Cosme protocol for a total duration of 9 minutes attaining a maximum heart rate of 157 bpm which was 102% of maximum predicted heart rate; the maximum workload was 10.4 metabolic equivalents. At rest there were no ST or T wave changes noted to suggest ischemia and at peak exercise upsloping ST changes only were noted which did not meet the criteria for ischemia. Occasional premature ventricular complexes were noted. No clinical angina was noted the test was terminated due to the target heart rate being achieved/fatigue. The peak blood pressure was 210/80 mmHg. Rate-pressure product was 27,300. Myocardial perfusion protocol. 14.7 mCi of technetium 99m sestamibi was injected at rest. The patient exercised according to regular Cosme protocol for total duration of 9 minutes and at peak exercise 44.4 mCi of technetium 99m sestamibi was injected stress images were obtained stress and rest images were reconstructed in comparing the short axis vertical long and horizontal long axis. Gated images were also obtained. Perfusion SPECT analysis: Review of the stress images demonstrate normal uptake of tracer noted in all areas of the myocardium. The resting images similarly demonstrate normal uptake of tracer noted in all areas of the myocardium. No areas of reversibility are noted to suggest ischemia no previous infarct was noted. Gated SPECT analysis: The gated ejection fraction is 50%. Conclusion: Normal exercise myocardial perfusion stress test at a moderate workload Preserved ejection fraction.
== END | disposition home or self-care (01) ==
LOC: CVS 05:51
PROVIDERS: PCP Preventive Medicine Occupational Medicine; Referring Provider Internal Medicine Cardiovascular Disease; Visit Provider Internal Medicine Cardiovascular Disease
DX: I25.10 Atherosclerotic heart disease of native coronary artery without angina pectoris (principal); Z95.1 Presence of aortocoronary bypass graft
CPT/HCPCS: 78452; 93017; A9500; A4216

== ENCOUNTER → 2022-06-06 | Outpatient (CLI) | payer MEDICARE, OTHER, SELFPAY ==
[2022-06-06 09:02] LABS: AST(SGOT) 20 U/L (15-37); Alanine Aminotransfer ALT/SGPT 31 U/L (16-61); Albumin, Serum 3.5 g/dL (3.2-5.0); Alkaline Phosphatase 115 U/L (45-117); Bilirubin, Direct 0.18 mg/dL (0.00-0.30); Cholesterol 160 mg/dL (200); Globulin 3.4 g/dL (2.2-4.2); High Density Lipoprotein 35 mg/dL; Protein, Total 6.9 g/dL (6.4-8.2); Triglycerides 143 mg/dL; Very Low Density Lipoprotein 29 mg/dL (5-40)
== END | disposition home or self-care (01) ==
LOC: LAB 07:36
PROVIDERS: PCP Preventive Medicine Occupational Medicine; Referring Provider Nurse Practitioner Gerontology; Visit Provider Nurse Practitioner Gerontology
DX: E78.00 Pure hypercholesterolemia, unspecified (principal)
CPT/HCPCS: 36415; 80061; 80076

== ENCOUNTER → 2022-11-22 | Outpatient (CLI) | payer MEDICARE, OTHER, SELFPAY | END | disposition home or self-care (01) | LOC: LAB 09:45 | PROVIDERS: PCP Preventive Medicine Occupational Medicine; Referring Provider Urology; Visit Provider Urology | DX: R97.20 Elevated prostate specific antigen [PSA] (principal) | CPT/HCPCS: 36415; 84153 ==

== ENCOUNTER → 2023-04-20 | Outpatient (CLI) | payer MEDICARE, OTHER, SELFPAY ==
--- OUTSIDE RECORDS SUMMARY | 2023-04-20 07:29 | XMS RPT_ITS | CCD ---
Author Name Unknown Address [id number] [place] [address] Organization [facility] Care Team Providers Care [employer] Client [employer] Consultant Name Role Phone JASE YI Unavailable Unavailable SAIRA PUENTES (TOM) Unavailable Unavailable Praveena Foster Primary Care Provider DeFinis, Harumi Y Unavailable Unavailable DeFinis, Harumi Y Unavailable Unavailable Janina Alexander Y Unavailable Janina Alexander Y Unavailable Eryn Daly RN Unavailable Unavailable PRAVEENA FOSTER DO Primary Care Physician Praveena Foster Primary Care Provider Praveena Foster DO Primary Care Provider HITESH BLAIR Referring Unavailable PRAVEENA FOSTER Primary Care Unavailable PRAVEENA FOSTER Primary Care Unavailable GIOVANY LAZAR Attending Unavailable GIOVANY LAZAR Referring Unavailable PRAVEENA FOSTER Primary Care Unavailable ABRIL HASSAN Referring Unavailable GIOVANY LAZAR Attending Unavailable PRAVEENA FOSTER Primary Care Unavailable ULICES GREER Admitting Unavailable ULICES GREER Attending Unavailable PRAVEENA FOSTER Primary Care Unavailable ABRIL HASSAN Attending Unavailable PRAVEENA FOSTER Primary Care Unavailable PRAVEENA FOSTER Referring Unavailable PRAVEENA FOSTER Primary Care Unavailable ULICES GREER Attending Unavailable PRAVEENA FOSTER Primary Care Unavailable JORDIN CAMACHO Referring Unavailable PRAVEENA FOSTER Primary Care Unavailable DEVONTE CABEZAS MD Attending Unavailable PRAVEENA FOSTER DO Primary Care Unavailable DEVONTE CABEZAS MD Attending Unavailable PRAVEENA FOSTER DO Primary Care Unavailable DEVONTE CABEZAS MD Attending Unavailable PRAVEENA FOSTER DO Primary Care Unavailable Praveena Foster DO Primary Care Provider Allergies Allergy Classification Reported Allergen(s) Allergy Type Date of Onset Reaction(s) Facility (20 sources) ampicillin; Translations: [AMPICILLIN] Drug Allergy 6 Rash [facility] Repository (11 sources) Hmg-Coa Reductase Inhibitors (Statins); Translations: [AEUGMIQ-AUY-JRO REDUCTASE INHIBITORS] Propensity to adverse reactions to drug (disorder) 6 Other: See Comments [facility] Repository (11 sources) niacin; Translations: [NIACIN] Drug Allergy 6 Intolerance, Rash [facility] Repository (10 sources) Amoxicillin; Translations: [Amoxicillin] Drug Allergy 4 Eruption of skin (disorder) [facility] Work Phone: (5 sources) ezetimibe Drug Allergy 6 severe constipation [facility] Work Phone: (5 sources) Hmg-Coa Reductase Inhibitors (Statins) drug allergy 4 Myalgias [facility] Work Phone: (10 sources) rosuvastatin Drug Allergy 4 Vision changes [facility] Work Phone: (5 sources) GEMFIBRIZOL drug allergy 6 vision changes [facility] Work Phone: Medications Current Medications Medication Drug Class(es) Dates Sig (Normalized) Sig (Original) atorvastatin 10 mg oral tablet (19 sources) HMG-CoA Reductase Inhibitor Start: 05-17-2016 atorvastatin 10 mg oral tablet Dose : 10 mg = 1 tab(s), Oral, Daily, # 90 tab(s), 0 Refill(s) Start Date: 05/11/21 Status: Ordered Completed/Discontinued Medications Medication Drug Class(es) Dates Sig (Normalized) Sig (Original) acetaminophen 325 mg / oxyCODONE hydrochloride 5 mg oral tablet (1 source) Opioid Agonist Start: 03-18-2014 take 1 tablet by mouth every four hours as needed oxyCODONE-acetami nophen (PERCOCET) 5-325 mg tablet Take 1 tablet by mouth every 4 hours as needed for Pain. 24 tablet 0 03/18/2014 Active Problems Active Problems Problem Classification Problem Date Documented Da te Episodic/Chronic Abdominal hernia (8 sources) Umbilical hernia; Translations: [Umbilical hernia without obstruction or gangrene] Onset: 3 07-24-2020 Episodic Allergic reactions (5 sources) Vesicular eczema 07-24-2020 Episodic Asthma (5 sources) Reactive airway disease 07-24-2020 Chronic Coronary atherosclerosis and other heart disease (20 sources) Atherosclerotic heart disease of algaaciq coronary artery without angina pectoris; Translations: [Coronary atherosclerosis of algaaciq coronary artery] Onset: 4 Resolved: 6 05-15-2015 Chronic Diabetes mellitus without complication (1 source) Blood glucose abnormal; Translations: [Other abnormal glucose] Episodic Disorders of lipid metabolism (20 sources) Hyperlipidemia; Translations: [Hyperlipidemia, unspecified] Onset: 0 12-21-2009 Chronic Disorders of lipid metabolism (1 source) Pure hypercholesterolemia, unspecified; Translations: [Pure hypercholesterolemia, unspecified] Onset: 0 Esophageal disorders (5 sources) Gastroesophageal reflux disease; Translations: [Gastro-esophageal reflux disease without esophagitis] Onset: 4 01-17-2014 Chronic Essential hypertension (18 sources) Hypertensive disorder; Translations: [Essential (primary) hypertension] Onset: 4 01-17-2014 Chronic Hyperplasia of prostate (10 sources) Benign prostatic hyperplasia with lower urinary tract symptoms; Translations: [Benign prostatic hypertrophy with outflow obstruction] Onset: 5 03-17-2014 Chronic Immunizations and screening for infectious disease (1 source) Suspected disease caused by 2019-nCoV; Translations: [Suspected COVID-19 virus infection] Episodic Influenza (1 source) Influenza due to Influenza A virus; Translations: [Influenza due to other identified influenza virus with other respiratory manifestations] 04-02-2023 Episodic Joint disorders and dislocations; trauma-related (2 sources) Tear of medial meniscus of knee 08-18-2022 Episodic Malaise and fatigue (1 source) Other fatigue; Translations: [Fatigue, unspecified type] Onset: 3 Episodic Other diseases of kidney and ureters (5 sources) Cyst of kidney 05-11-2021 Episodic Other ear and sense organ disorders (5 sources) Hearing loss 07-24-2020 Chronic Other ear and sense organ disorders (5 sources) Tinnitus 07-24-2020 Episodic Other lower respiratory disease (5 sources) Nodule of lung 05-11-2021 Episodic Other lower respiratory disease (1 source) Cough; Translations: [Acute cough] Episodic Other nervous system disorders (5 sources) Carpal tunnel syndrome 12-18-2020 Chronic Other nervous system disorders (5 sources) Paresthesia 10-28-2020 Episodic Other non-traumatic joint disorders (3 sources) Knee pain 02-08-2022 Episodic Other nutritional; endocrine; and metabolic disorders (5 sources) Body mass index (BMI) 31.0-31.9, adult; Translations: [Body Mass Index 31.0-31.9, adult] Onset: 5 11-17-2015 Chronic Other nutritional; endocrine; and metabolic disorders (5 sources) Body mass index (BMI) 30.0-30.9, adult; Translations: [Body Mass Index 30.0-30.9, adult] Onset: 5 04-22-2014 Chronic Other nutritional; endocrine; and metabolic disorders (8 sources) Obese class I; Translations: [Obesity, unspecified] Onset: 2 05-08-2021 Chronic Other screening for suspected conditions (not mental disorders or infectious disease) (15 sources) Increased glucose level; Translations: [Raised prostate specific antigen] Onset: 2 05-24-2021 Episodic Rula-; endo-; and myocarditis; cardiomyopathy (except that caused by tuberculosis or sexually transmitted disease) (5 sources) Cardiomyopathy in diseases classified elsewhere; Translations: [Cardiomyopathy in other diseases classified elsewhere] Onset: 5 04-22-2014 Chronic Phlebitis; thrombophlebitis and thromboembolism (5 sources) H/O: Deep vein thrombosis 07-24-2020 Episodic Residual codes; unclassified (1 source) Viral syndrome; Translations: [Other general symptoms and signs] 04-02-2023 Episodic Spondylosis; intervertebral disc disorders; other back problems (2 sources) Pain in thoracic spine 10-28-2020 Episodic Unclassified (7 sources) Patient encounter status 08-10-2021 Unclassified (1 source) Subacute cough; Translations: [Subacute cough] Onset: 3 Unclassified (1 source) Acute cough; Translations: [Acute cough] Onset: 2 Past or Other Problems Problem Classification Problem Date Documented Da te Episodic/Chronic Bacterial infection; unspecified site (8 sources) Bacteremia caused by Gram-negative bacteria; Translations: [Bacteremia] Onset: 05-03-2021 05-03-2021 Episodic Cardiac dysrhythmias (5 sources) Palpitations; Translations: [Palpitations] Onset: 01-17-2014 01-17-2014 Episodic Coronary atherosclerosis and other heart disease (5 sources) Presence of aortocoronary bypass graft; Translations: [Aortocoronary bypass status] Onset: 01-17-2014 01-17-2014 Episodic Genitourinary symptoms and ill-defined conditions (11 sources) Gross hematuria; Translations: [Increased frequency of urination] Onset: 10-19-2017 Episodic Inflammatory conditions of male genital organs (8 sources) Prostatitis; Translations: [Inflammatory disease of prostate, unspecified] Onset: 05-02-2021 05-02-2021 Episodic Other aftercare (5 sources) Long-term drug therapy; Translations: [Other intermediate accountant (current) drug therapy] Onset: 09-19-2014 09-19-2014 Episodic Other and unspecified benign neoplasm (1 source) Benign neoplasm of rectum; Translations: [Benign neoplasm of rectum] Onset: 08-26-2011 Episodic Other and unspecified benign neoplasm (1 source) Benign neoplasm of anus and anal canal; Translations: [Benign neoplasm of anus and anal canal] Onset: 08-26-2011 Episodic Other and unspecified benign neoplasm (9 sources) Benign neoplasm of rectum and anal canal; Translations: [Benign neoplasm of rectum] Onset: 08-26-2011 08-26-2011 Episodic Other connective tissue disease (8 sources) Pain in right arm; Translations: [Pain in right arm] Onset: 05-03-2021 05-03-2021 Episodic Other diseases of kidney and ureters (1 source) Other obstructive and reflux uropathy; Translations: [Other obstructive and reflux uropathy] Onset: 03-17-2014 Episodic Other lower respiratory disease (5 sources) Dyspnea on exertion; Translations: [Other forms of dyspnea] Onset: 05-17-2016 05-17-2016 Episodic Other nutritional; endocrine; and metabolic disorders (10 sources) Body mass index (BMI) 29.0-29.9, adult; Translations: [Body Mass Index 29.0-29.9, adult] Onset: 11-10-2014 Resolved: 05-15-2015 05-15-2015 Episodic Pulmonary heart disease (8 sources) H/O: pulmonary embolus; Translations: [Personal history of pulmonary embolism] Onset: 06-29-2022 07-24-2020 Episodic Residual codes; unclassified (5 sources) FH: Raised blood lipids; Translations: [Family history of other endocrine, nutritional and metabolic diseases] 04-22-2014 Episodic Urinary tract infections (9 sources) Urinary tract infectious disease; Translations: [Urinary tract infection, site not specified] Onset: 05-02-2021 Episodic Results Test Name Value Interpretation Reference Range Facil it Vital Signs Date Time Vital Sign Value Performing Clinician Facility 04-02-2023 08:35-0500 Body temperature 101.8 [degF] Hoa Quinn APRN.LOOM MECHANIC Work Phone: [facility] 04-02-2023 08:35-0500 Body weight 107.41 kg Hoa Quinn APRN.LOOM MECHANIC Work Phone: [facility] 04-02-2023 08:35-0500 Diastolic blood pressure 82 mm[Hg] Hoa Quinn APRN.LOOM MECHANIC Work Phone: [facility] 04-02-2023 08:35-0500 Heart rate 72 /min Hoa Quinn APRN.LOOM MECHANIC Work Phone: [facility] 04-02-2023 08:35-0500 Respiratory rate 16 /min Hoa Quinn APRN.LOOM MECHANIC Work Phone: [facility] 04-02-2023 08:35-0500 SaO2% (BldA) [Mass fraction] 96 % Hoa Quinn APRN.LOOM MECHANIC Work Phone: [facility] 04-02-2023 08:35-0500 Systolic blood pressure 144 mm[Hg] Hoa Quinn APRN.LOOM MECHANIC Work Phone: [facility] 01-05-2022 07:53-0500 Body temperature 98.01 [degF] [facility] OUTBOUND SALES ADVISOR.LOOM MECHANIC Work Phone: [facility] 01-05-2022 07:53-0500 Diastolic blood pressure 82 mm[Hg] [facility] OUTBOUND SALES ADVISOR.LOOM MECHANIC Work Phone: [facility] 01-05-2022 07:53-0500 Heart rate 95 /min [facility] OUTBOUND SALES ADVISOR.LOOM MECHANIC Work Phone: [facility] 01-05-2022 07:53-0500 Respiratory rate 18 /min [facility] OUTBOUND SALES ADVISOR.LOOM MECHANIC Work Phone: [facility] 01-05-2022 07:53-0500 SaO2% (BldA) [Mass fraction] 95 % [facility] OUTBOUND SALES ADVISOR.LOOM MECHANIC Work Phone: [facility] 01-05-2022 07:53-0500 Systolic blood pressure 138 mm[Hg] [facility] OUTBOUND SALES ADVISOR.LOOM MECHANIC Work Phone: [facility] 10-22-2021 08:35-0400 Body height 185.4 cm Giovany Lazar MD Work Phone: [facility] 10-22-2021 08:35-0400 Body temperature 97.11 [degF] Giovany Lazar MD Work Phone: [facility] 10-22-2021 08:35-0400 Body weight 103.87 kg Giovany Lazar MD Work Phone: [facility] 10-22-2021 08:35-0400 Diastolic blood pressure 88 mm[Hg] Giovany Lazar MD Work Phone: [facility] 10-22-2021 08:35-0400 Heart rate 87 /min Giovany Lazar MD Work Phone: [facility] 10-22-2021 08:35-0400 SaO2% (BldA) [Mass fraction] 96 % Giovany Lazar MD Work Phone: [facility] 10-22-2021 08:35-0400 Systolic blood pressure 148 mm[Hg] Giovany Lazar MD Work Phone: [facility] 10-14-2021 10:58-0400 Diastolic blood pressure 73 mm[Hg] Giovany Lazar MD Work Phone: [facility] 10-14-2021 10:58-0400 Heart rate 73 /min Giovany Lazar MD Work Phone: [facility] 10-14-2021 10:58-0400 Respiratory rate 16 /min Giovany Lazar MD Work Phone: [facility] 10-14-2021 10:58-0400 SaO2% (BldA) [Mass fraction] 93 % Giovany Lazar MD Work Phone: [facility] 10-14-2021 10:58-0400 Systolic blood pressure 130 mm[Hg] Giovany Lazar MD Work Phone: [facility] 10-14-2021 09:19-0400 Body temperature 97.5 [degF] Giovany Lazar MD Work Phone: [facility] 10-14-2021 09:19-0400 Body weight 103.9 kg Giovany Lazar MD Work Phone: [facility] 09-01-2021 08:41-0400 Body height 182.9 cm Abril [place] PA-C Work Phone: [facility] 09-01-2021 08:41-0400 Body temperature 96.8 [degF] Abril Mo PA-C Work Phone: [facility] 09-01-2021 08:41-0400 Body weight 103.87 kg Abril [place] PA-C Work Phone: [facility] 09-01-2021 08:41-0400 Diastolic blood pressure 76 mm[Hg] Abril [place] PA-C Work Phone: [facility] 09-01-2021 08:41-0400 Heart rate 91 /min Abril [place] PA-C Work Phone: [facility] 09-01-2021 08:41-0400 SaO2% (BldA) [Mass fraction] 98 % Abril SANTOS-C Work Phone: [facility] 09-01-2021 08:41-0400 Systolic blood pressure 114 mm[Hg] Abril SANTOS-C Work Phone: [facility] 05-02-2021 09:37-0400 Body temperature 101.5 [degF] Robin Glynn OUTBOUND SALES ADVISOR.LOOM MECHANIC Work Phone: [facility] 05-02-2021 09:37-0400 Body weight 107.14 kg Robin Glynn OUTBOUND SALES ADVISOR.LOOM MECHANIC Work Phone: [facility] 05-02-2021 09:37-0400 Diastolic blood pressure 90 mm[Hg] Robin King OUTBOUND SALES ADVISOR.LOOM MECHANIC Work Phone: [facility] 05-02-2021 09:37-0400 Heart rate 94 /min Robin King OUTBOUND SALES ADVISOR.LOOM MECHANIC Work Phone: [facility] 05-02-2021 09:37-0400 Respiratory rate 20 /min Robin Glynn OUTBOUND SALES ADVISOR.LOOM MECHANIC Work Phone: [facility] 05-02-2021 09:37-0400 SaO2% (BldA) [Mass fraction] 95 % Robin Glynn OUTBOUND SALES ADVISOR.LOOM MECHANIC Work Phone: [facility] 05-02-2021 09:37-0400 Systolic blood pressure 148 mm[Hg] Robin Glynn OUTBOUND SALES ADVISOR.LOOM MECHANIC Work Phone: [facility] 12-01-2016 09:09-0400 Body height 185.42 cm Janina Alexander Work Phone: [facility] Work Phone: 12-01-2016 09:09-0400 Body mass index (BMI) [Ratio] 31.44 kg/m2 Janina Alexander Work Phone: [facility] Work Phone: 12-01-2016 09:09-0400 Body weight 108.1 kg Janina Alexander Work Phone: [facility] Work Phone: 12-01-2016 09:09-0400 Diastolic blood pressure 88 mm[Hg] Janina Alexander Work Phone: [facility] Work Phone: 12-01-2016 09:09-0400 Heart rate 76 /min Janina Alexander Work Phone: [facility] Work Phone: 12-01-2016 09:09-0400 Respiratory rate 20 /min Janina Alexander Work Phone: [facility] Work Phone: 12-01-2016 09:09-0400 Systolic blood pressure 150 mm[Hg] Janina Alexander Work Phone: [facility] Work Phone: 05-17-2016 16:19-0400 Body height 185.42 cm Harshaina LendUpamanda [facility] Work Phone: 05-17-2016 16:19-0400 Body mass index (BMI) [Ratio] 31.53 kg/m2 Harshaina DeFinis [facility] Work Phone: 05-17-2016 16:19-0400 Body weight 108.41 kg Babak DeFinis [facility] Work Phone: 05-17-2016 16:19-0400 Diastolic blood pressure 70 mm[Hg] Babak DeFinis [facility] Work Phone: 05-17-2016 16:19-0400 Heart rate 80 /min Harumi DeFinis [facility] Work Phone: 05-17-2016 16:19-0400 Respiratory rate 20 /min Harshaina DeFinis [facility] Work Phone: 05-17-2016 16:19-0400 Systolic blood pressure 110 mm[Hg] Harumi DeFinis [facility] Work Phone: 11-17-2015 08:38-0400 Body surface area Derived from formula 2.32 m2 HarClusterizeis [facility] Work Phone: Encounters Encounter Date Encounter Type Care Provider Facility Start: 04-02-2023 End: 04-02-2023 Patient encounter procedure Hoa Cheyenne CEBALLOS.LOOM MECHANIC Work Phone: [facility] Procedures Date Procedure Procedure Detail Performing Clinician Start: 04-02-2023 INFLUENZA A&B MOLECULAR (POC) Hoa Quinn TUCKER.LOOM MECHANIC Work Phone: Start: 10-14-2021 Colonoscopy flx dx w/collj spec when pfrmd Abril Hassan PA-C Work Phone: Start: 10-14-2021 Colonoscopy Giovany Lazar MD Work Phone: Start: 05-02-2021 Urnls dip stick/tablet rgnt auto w/o microscopy Robin Glynn APRN.LOOM MECHANIC Work Phone: Start: 09-04-2017 Adult depression screening assessment Robin Glynn APRN.[facility] Work Phone: Start: 12-01-2016 End: 12-01-2016 Documentation of current medications Janina Alexander Work Phone: Start: 12-01-2016 End: 12-01-2016 WOOLEN SUITING SHRINKER Mukesh Antony MD Start: 12-01-2016 End: 12-01-2016 Ecg routine ecg w/least 12 lds w/i&r Mukesh Antony MD Start: 12-01-2016 End: 12-20-2016 Echocardiography Mukesh Antony MD Start: 12-01-2016 End: 12-01-2016 Follow Up Appt 3 months Marcos Singleton Start: 12-01-2016 End: 12-20-2016 Nuclear stress test -exercise Mukesh Antony MD Start: 08-22-2016 End: 09-15-2016 Hepatic function 2000 panel - Serum or Plasma Mukesh Antony MD Start: 08-22-2016 End: 09-15-2016 Lipid 1996 panel - Serum or Plasma Mueksh Antony MD Start: 05-17-2016 End: 05-17-2016 Documentation of current medications Babak Lema Start: 05-17-2016 End: 11-08-2016 Follow Up Appt 6 months Marcos Singleton Start: 05-17-2016 End: 09-16-2016 Hepatic function 2000 panel - Serum or Plasma Mukesh Antony MD Start: 05-17-2016 End: 09-16-2016 Lipid 1996 panel - Serum or Plasma Mukesh Antony MD Start: 05-17-2016 End: 11-08-2016 MMM Mukesh Antony MD Start: 02-02-2016 End: 02-19-2016 Hepatic function 2000 panel - Serum or Plasma Mukesh Antony MD Start: 02-02-2016 End: 02-19-2016 Lipid 1996 panel - Serum or Plasma Mukesh Antony MD Start: 11-17-2015 End: 11-17-2015 Dietary management education, guidance, and counseling Babak Vargasamanda Start: 11-17-2015 End: 11-17-2015 WO[employer]EN SUITING SHRINKER Moncho TARIQ-Khalif Start: 11-17-2015 End: 11-17-2015 Follow Up Appt 6 months Moncho TARIQ -Khlaif Start: 07-29-2015 End: 08-03-2015 Hepatic function 2000 panel - Serum or Plasma Mukesh Antony MD Start: 07-29-2015 End: 08-03-2015 Lipid 1996 panel - Serum or Plasma Mukesh Antony MD Start: 05-21-2015 End: 11-05-2015 24 hour holter monitor Mukesh Antony MD Start: 05-21-2015 End: 05-21-2015 Follow Up Appt 6 months Marcos Singleton Start: 05-21-2015 End: 05-21-2015 MMMarcos Antony MD Start: 04-16-2015 End: 04-27-2015 Hepatic function 2000 panel - Serum or Plasma Mukesh Antony MD Start: 04-16-2015 End: 04-27-2015 Lipid 1996 panel - Serum or Plasma Mukesh Antony MD Start: 03-12-2015 End: 03-12-2015 Follow Up Appt 6 months Marcos Singleton Start: 03-12-2015 End: 04-28-2015 Hepatic function 2000 panel - Serum or Plasma Mukesh Antony MD Start: 03-12-2015 End: 04-28-2015 Lipid 1996 panel - Serum or Plasma Mukesh Antony MD Start: 03-12-2015 End: 03-12-2015 MMM Mukesh Antony MD Start: 02-06-2015 End: 03-05-2015 Hepatic function 2000 panel - Serum or Plasma Mukesh Antony MD Start: 02-06-2015 End: 03-05-2015 Lipid 1996 panel - Serum or Plasma Mukesh Antony MD Start: 11-10-2014 End: 11-10-2014 Basic metabolic 2000 panel - Serum or Plasma Yanet Diaz PA-C Work Phone: Start: 11-10-2014 End: 11-10-2014 CBC W Auto Differential panel - Blood Yanet Diaz PA-C Work Phone: Start: 11-10-2014 End: 11-10-2014 WOOLEN SUITING [employer]RINKER Yanet Diaz PA-C Work Phone: Start: 11-10-2014 End: 11-11-2014 Documentation of current medications Yanet Diaz PA-C Work Phone: Start: 11-10-2014 End: 11-10-2014 Follow Up Appt 6 months Yanet Diaz PA-C Work Phone: Start: 11-10-2014 End: 11-10-2014 Magnesium [Mass/volume] in Serum or Plasma Yanet Diaz PA-C Work Phone: Start: 11-10-2014 End: 11-10-2014 Thyrotropin [Units/volume] in Serum or Plasma Yanet Diaz PA-C Work Phone: Start: 08-04-2014 End: 09-19-2014 Hepatic function 2000 panel - Serum or Plasma Mukesh Antony MD Start: 08-04-2014 End: 09-19-2014 Lipid 1996 panel - Serum or Plasma Mukesh Antony MD Start: 04-22-2014 End: 04-23-2014 Documentation of current medications Mukesh Antony MD Start: 04-22-2014 End: 04-22-2014 Follow Up Appt 6 months Marcos Singleton Start: 04-22-2014 End: 04-22-2014 Lipid 1996 panel Mukesh Antony MD Start: 01-22-2014 End: 01-22-2014 WOOLEN SUITING SHRINKER Mukesh Antony MD Start: 01-22-2014 End: 01-22-2014 Ecg routine ecg w/least 12 lds w/i&r Mukesh Antony MD Start: 01-22-2014 End: 01-27-2014 Echocardiography Mukesh Antony MD Start: 01-22-2014 End: 09-19-2014 Hepatic function 2000 panel - Serum or Plasma Mukesh Antony MD Start: 01-22-2014 End: 09-19-2014 Lipid 1996 panel - Serum or Plasma Mukesh Antony MD Start: 01-22-2014 End: 09-19-2014 Nuclear stress test -exercise Mukesh Antony MD Start: 08-26-2011 Colonoscopy Robin King OUTBOUND SALES ADVISOR.LOOM MECHANIC Work Phone: Start: 07-29-2011 Lipid 1996 panel - Serum or Plasma Hoa Quinn OUTBOUND SALES ADVISOR.LOOM MECHANIC Work Phone: Start: 02-07-2000 Coronary artery bypass grafts x 5 PRAVEENA FOSTER DO History of transuret hral prostatectomy S/P TURP (status post transurethral resection of prostate)( Confirmed ) PRAVEENA FOSTER DO Plan of Treatment Date Care Activity Detail Author Start: 10-15-2031 Colonoscopy COLONOSCOPY [facility] Start: 10-15-2031 COLORECTAL CANCER SCREENING COLORECTAL CANCER SCREENING [facility] Start: 10-14-2026 Colonoscopy COLONOSCOPY [facility] Start: 10-14-2026 COLORECTAL CANCER SCREENING COLORECTAL CANCER SCREENING [facility] Start: 10-14-2026 Screening for malignant neoplasm of colon [facility] Start: 05-03-2026 PROSTATE CANCER SCREENING DISCUSSION PROSTATE CANCER SCREENING DISCUSSION [facility] Start: 05-03-2026 Prostate specific antigen measurement Prostate Cancer Screening Discussion [facility] Start: 06-29-2025 DIABETES SCREEN DIABETES SCREEN [facility] Start: 06-29-2025 Diabetes Screening Diabetes Screening [facility] Start: 05-07-2024 DIABETES SCREEN DIABETES SCREEN [facility] Start: 05-02-2024 DIABETES SCREEN DIABETES SCREEN [facility] Start: 02-06-2023 Advance Directive Discussion Advance Directive Discussion [facility] Start: 02-06-2023 Depression Assessment Depression Assessment [facility] Start: 10-19-2022 PROSTATE CANCER SCREENING DISCUSSION PROSTATE CANCER SCREENING DISCUSSION [facility] Start: 10-07-2022 Covid-19 Vaccine () Covid-19 Vaccine () [facility] Start: 10-07-2022 Influenza vaccination [facility] Start: 09-01-2022 BP CONTROLLED (<130/80) BP CONTROLLED (<130/80) [facility] Start: 02-06-2022 ADVANCE DIRECTIVE DISCUSSION ADVANCE DIRECTIVE DISCUSSION [facility] Start: 02-06-2022 DEPRESSION ASSESSMENT DEPRESSION ASSESSMENT [facility] Start: 01-05-2022 End: 01-19-2022 Influenza virus A and B RNA and SARS-CoV-2 (COVID-19) N gene panel - Respiratory specimen by KOSTAS with probe detection COVID WITH FLUA+B, ROUTINE Microbiology Routine Acute cough Suspected COVID-19 virus infection Expected: 01/05/2022, Expires: 01/19/2022 [facility] Work Phone: Immunizations Immunization Date Immunization Notes Care Provider Rich caballero 12-18-2018 influenza virus vacc ine, unspecified formulation Hoa Quinn APRN.LOOM MECHANIC Work Phone: [facility] Payers Date Payer Category Payer Medicare MEDICARE MEDICAR E A AND B [id number] 2019-Present [phone] [place] [address] Medicare [id number] 2019 Medicare MEDICARE MEDICAR E A AND B [id number] 2019-Present [phone] [place] [address] Medicare [id number] 2019 Medicare [id number] 2019 Medicare [id number] 2019 Unknown MMO MMO MEDICARE SUPPLEMENT [id number] 2019-Present [phone] [address] [place] [address] Indemnity [id number] 2019 Unknown MMO MMO MEDICARE SUPPLEMENT [id number] 2019-Present [phone] [address] [place] [address] Indemnity [id number] 1954 Unknown [id number] 1954 Unknown [id number] 1954 Unknown [id number] Social History Date Type Detail Facility Start: 03-17-2014 End: 12-10-2018 Tobacco smoking status NHIS Never smoked tobacco [facility] Start: 05-02-2021 End: 04-02-2023 Alcohol intake Current non-drinker of alcohol (finding) [facility] Start: 07-13-2011 History SDOH Alcohol Comment almost never [facility] Start: 1955 Sex Assigned At Not on file C [facility] Sex Assigned At Sex [facility] Start: 08-22-2021 End: 01-05-2022 Exposure to SARS-CoV-2 (event) Not sure [facility] Start: 03-17-2014 Tobacco use and exposure Smokeless tobacco non-user [facility] Start: 06-27-2022 End: 04-02-2023 History of Social function [facility] Start: 06-27-2022 End: 04-02-2023 Tobacco use panel [facility] Adult Depression Screening Assessment 0 [facility] Start: 10-14-2021 Sexual orientation Heterosexual (shayy oglesby) [facility] Work Phone: Clinical Notes 12-01-2016 to 04-02-2023 Patient InstructionsHoa Quinn APRN.CNP - 04/02/2023 8:50 AM EST Note Date & Type Note Facility 04-02-2023 Instructions Hoa Quinn APRN.LOOM MECHANIC - 04/02/2023 9:17 AM EST Rest, increase water intake Motrin or Tylenol as needed for fever or pain. Salt water gargles, chloraseptic spray or lozenges as needed for sore throat. Warm beverages, honey. Nasal saline spray as needed Cool mist humidifier at night Tylenol (generic acetaminophen) 500 mg-2 tabs every 8 hrs. as needed for fever and aches Ibuprofen 600 mg (3-200mg tablets) every 6 hours -Sudafed (generic is fine), behind the counter, 2x30 mg tabs twice daily as needed for congestion -Mucinex (generic is fine) Guaifenesin 1200 mg twice daily to help with cough and to thin out mucus - Tamiflu as ordered Oscillococcinum - OTC - use as directed on package - if unable to tolerate Tamiflu * Seek medical care immediately, call 911, go to ER if you have chest pain, decreased urine output, difficulty breathing, shortness of breath, inability to swallow. documented in this encounter [facility] 04-02-2023 History of Presen t illness Narrative Subjective The history is provided by the patient. No multi disciplined language analyst was used. HPI Edmundo Henao is a 67 year old male who presents today for CC of cough, congestion, runny nose since Monday at 5 pm. He has used no treatment or medications. He denies any known exposure to flu, he did not receive flu vaccine this year. H/o asthma BP 144/82 Pulse 72 Temp (!) 38.8 C (101.8 F) (Tympanic) Resp 16 Wt 107.4 kg (236 lb 12.8 oz) SpO2 96% BMI 31.24 kg/m Social History Tobacco Use Smoking status: Never Smokeless tobacco: Never Vaping Use Vaping Use: Never used Substance Use Topics Alcohol use: No Comment: almost never Drug use: No PAST MEDICAL HISTORY Diagnosis Date Arthritis ASCVD (arteriosclerotic cardiovascular disease) Chest pain Coronary artery disease HTN (hypertension) Pulmonary embolism (HCC) DVT with PE I have confirmed and edited as necessary, the [facility] Review of Systems Constitutional: Positive for fever and malaise/fatigue. Negative for chills. HENT: Positive for congestion. Negative for ear pain, sinus pain and sore throat. Respiratory: Positive for cough. Negative for sputum production, shortness of breath and wheezing. Cardiovascular: Negative for chest pain. Gastrointestinal: Negative for abdominal pain, diarrhea, nausea and vomiting. Musculoskeletal: Positive for myalgias. Neurological: Negative for headaches. Objective Physical Exam Vitals and nursing note reviewed. Constitutional: Appearance: He is not toxic-appearing. HENT: Head: Normocephalic and atraumatic. Right Ear: Tympanic membrane, ear canal and external ear normal. Left Ear: Tympanic membrane, ear canal and external ear normal. Nose: Mucosal edema, congestion and rhinorrhea present. Right Sinus: No maxillary sinus tenderness or frontal sinus tenderness. Left Sinus: No maxillary sinus tenderness or frontal sinus tenderness. Mouth/Throat: Pharynx: Uvula midline. No oropharyngeal exudate or posterior oropharyngeal erythema. Tonsils: No tonsillar abscesses. Cardiovascular: Rate and Rhythm: Normal rate and regular rhythm. Heart sounds: Normal heart sounds. Pulmonary: Effort: Pulmonary effort is normal. Breath sounds: Normal breath sounds. No decreased breath sounds, wheezing, rhonchi or rales. Comments: A rattling moist cough was noted during this encounter. Talking in full sentences. Handling secretions without drooling. Lips and nailbeds are pink without cyanosis. Lymphadenopathy: Head: Right side of head: No submental, submandibular, tonsillar or preauricular adenopathy. Left side of head: No submental, submandibular, tonsillar or preauricular adenopathy. Cervical: No cervical adenopathy. Right cervical: No superficial cervical adenopathy. Left cervical: No superficial cervical adenopathy. Neurological: Mental Status: He is alert. ASSESSMENT/PLAN: 1. Flu-like symptoms - ICD9: 780.99, ICD10: R68.89 (primary diagnosis) Comfort measures discussed - see patient instructions - INFLUENZA A&B MOLECULAR (POC) 2. Influenza A - ICD9: 487.1, ICD10: J10.1 Tamiflu as discussed Hydration, rest Mucinex, tessalon perls prn Albuterol inhaler as needed. Diagnosis and treatment plan were discussed and questions were answered to the patient's satisfaction. Pt acknowledged understanding of concepts and follow up plan. Specific signs and symptoms that would indicate the need for higher level of care were discussed in detail warranting prompt ER evaluation. Hoa Quinn APRN.LOOM MECHANIC documented in this encounter [facility] Virgilio Farrell 06-05-2023 Miscellaneous Notes* Telephone Encounter - Violeta Khalil APRN.CNP - 07/11/2022 9:50 AM EDT Spoke with Edmundo Henao today, July 11, 2022, on the phone regarding drainage from his incisionsite. Patient states that last night he slept on his stomach, as opposed to his side, and woke up with a small amount of drainage on his sheets. He also states that if he presses down on his abdomen a light pink liquid drains slightly. Patient advised to place gauze over the incision and the oozing will resolve over the next days or so. Patient will call if he notices any other symptoms or if he has other concerns. Violeta Khalil, STACY, OUTBOUND SALES ADVISOR, TRANSPORTATION TECHNICIAN-C July 11, 2022 9:56 AM documented [facility] Miscellaneous Notes* Telephone Encounter - Violeta Khalil APRN.CNP - 07/11/2022 9:46 AM EDT Attempted to speak with Edmundo Henao on 07/11/2022 at 0945. Patient did not answer. A voicemail was left with a call back number. documented in this [facility] NoteHNO ID: [id number] Author: Devonte Soto APRN.MACHINE ROUGH ROUNDER Service: ? Author Type: Nurse Neon Sign Installer Type: Anesthesia Procedure Notes Filed: 07/05/2022 7:48 AM Note Text: ANESTHESIOLOGY PROCEDURE NOTE Airway General Information Procedure Start Time/Medication Administration: 07/05/2022 7:33 AM Patient location during procedure: OR Timeout Performed Pre-procedure: timeout performed Consent Obtained: Yes Patient identity confirmed: arm band, care steam finisher and patient Staffing MACHINE ROUGH ROUNDER: Devonte Soto APRN.MACHINE ROUGH ROUNDER Performed by: MACHINE ROUGH ROUNDER Indications and Patient Condition Indications for airway management: anesthesia Preoxygenated: yes anesthesia circuit Patient position: sniffing Method: asleep Cricoid Pressure: No Manual In-Line Stabilization: No Difficult Mask: No Final Airway Details Final airway type: endotracheal airway Final Endotracheal Airway: ETT Cuffed: yes Successful intubation technique: video laryngoscopy Devices used: Kay Endotracheal tube insertion site: oral Blade: Edwin Blade size: #4 ETT size (mm): 7.5 Measured from: lips Measurement (cm): 23 Placement verified by: capnometry Cormack-Lehane Classification: grade IIa - partial view of glottis Number of attempts at approach: 1 Failed airway: no Unrecognized esophageal intubation: no Airway not difficult SIGNATURE: Devonte Soto APRN.MACHINE ROUGH ROUNDER PATIENT NAME: Edmundo Henao DATE: July 05, 2022 TIME: 7:47 AM CSN: [id number] NoteHNO ID: [id number] Author: Ulices Greer MD Service: ? Author Type: Physician Type: Progress Notes Filed: 06/27/2022 1:19 PM Note Text: Consultation requested by Dr. Foster for an opinion regarding umbilical hernia. My final recommendations will be communicated back to the requesting physician by way of shared Medical record or letter to requesting physician via US mail. I have seen and evaluated the patient and discussed the case with the resident physician. I agree with the assessment and plan as documented in the resident?s note. 67 year old male with history of painful umbilical hernia. It's about 1.5 cm and we went over mesh versus no mesh and we ended on primary repair. Consent was obtained and we will schedule accordingly.[facility] 06-27-2022 NoteHNO ID: [id number] Author: Lola Pleitez MD Service: ? Author Type: Resident Type: Progress Notes Filed: 06/27/2022 1:19 PM Note Text: [facility] Abdominal Core Health - HISTORY AND PHYSICAL Chief Complaint: Umbilical hernia HPI: Edmundo Henao is a 67 year old male who presents with umbilical hernia. He has a history of CAD (bypass x 5, most recent EF: 45%, on ASA 81mg), BPH s/p TURP 2019 c/b DVT/PE (s/p IVC filter s/p removal, completed eliquis course), LIH repair (Shouldice followed by mesh repair). He has pain sometimes after left inguinal hernia repair with mesh. He has one episode of SBO with excruciating pain mostly in the left groin and some around the umbilicus, and the pain resolved with bowel movement. On exam, his abdomen was soft, nontender, and small reducible umbilical hernia. No recurrence of left inguinal hernia with cough. He denies any anticoagulant use. Relevant previous operations include: left inguinal hernia repair x 2 No history of Psychiatric Disorders or Opioid Use Independent Unknown Unknown Anti-platelet medications N/A Independent PAST MEDICAL HISTORY Diagnosis Date Arthritis ASCVD (arteriosclerotic cardiovascular disease) Chest pain Coronary artery disease HTN (hypertension) Pulmonary embolism (HCC) DVT with PE PAST SURGICAL HISTORY Procedure Laterality Date ACHILLES TENDON SURGERY HX Right Dr. Romero, tendon release ARTHROSCOPY KNEE MEDIAL RELEASE Right Dr. Zhou BACK SURGERY HX 1985 laminectomy COLONOSCOPY 10/14/2021 tubular adenoma, repeat in 5 years COLONOSCOPY FLX DX W/COLLJ SPEC WHEN PFRMD 07/2000 Colonoscopy COLONOSCOPY W/BIOPSY SINGLE/MULTIPLE 08/26/2011 CORONARY ARTERY BYP W/VEIN AND ARTERY GRAFT 5 VEIN 2001 HEART SURGERY HX HERNIA REPAIR HX Left x 2 LASER ENUCLEATION PROSTATE W/MORCELLATION PAST SURGICAL HISTORY OF Bilateral 2021 carpal tunnel TONSILLECTOMY HX VASCULAR SURGERY PROCEDURE Social History Tobacco Use Smoking status: Never Smokeless tobacco: Never Vaping Use Vaping Use: Never used Substance Use Topics Alcohol use: No Comment: almost never Drug use: No FAMILY HISTORY Problem Relation Age of Onset Heart Father Diabetes Father other (hypercholes) Mother ALLERGIES Allergen Reactions Ampicillin Rash Niacin Rash bladder irritation with frequency Statins [Statins-Hm* Other: See Comments Ocular retinitis from Crestor Current Outpatient Medications Medication Sig Dispense Refill albuterol HFA (PROAIR HFA) 90 mcg/actuation inhaler Inhale 2 Puffs as instructed every 6 hours as needed. 1 Each 0 losartan (COZAAR) 25 mg tablet Take 25 mg by mouth once daily. finasteride (PROSCAR) 5 mg tablet Take 5 mg by mouth once daily. amLODIPine (NORVASC) 5 mg tablet Take 1 tablet by mouth once daily. 30 tablet 0 aspirin 81 mg cap Take 81 mg by mouth once daily. Takes periodically. Does Not take everyday. (Patient not taking: Reported on 06/04/2022) atorvastatin (LIPITOR) 10 mg tablet Take 10 mg by mouth once daily. VIT E ACETATE/VIT BCOMPANDC/ZINC (ZINC WITH VITAMINS ORAL) Take 1 capsule by mouth once daily. No current facility-administered medications for this visit. REVIEW OF SYSTEMS PAIN ASSESSMENT: Negative for pain, history of chronic pain, or current treatment for a chronic pain condition. RESPIRATORY: Negative for cough, hemoptysis, wheezing, COPD, dyspnea or shortness of breath CARDIOVASCULAR: Negative for chest pain, leg swelling, hypertension, CHF or palpitations GI: No nausea, vomiting, or diarrhea MUSCULOSKELETAL: Negative for joint pain or swelling, back pain or muscle pain SKIN: Negative for lesions, rash, and itching. The remainder of the review of systems is negative. BP 146/98 Pulse 82 Temp 36.2 ?C (97.2 ?F) (Temporal Artery) Resp 12 Ht 185.4 cm (6' 1 ) Wt 104.3 kg (230 lb) BMI 30.34 kg/m? Physical findings of this patient are as follows (COMPLETE 10 INCLUDING HEART AND LUNG EXAM OR CHOOSE NORMAL EXAM IF APPROPRIATE): Physical Exam Physical Exam Constitutional: The patient is well-developed, well-nourished, and in no distress. Head: Normocephalic and atraumatic. Eyes: Pupils are equal, round, and reactive to light. EOM are normal. Neck: Normal range of motion. Neck supple. Cardiovascular: Regular rhythm and normal heart sounds. Pulmonary/Chest: Effort normal and breath sounds normal. Abdominal: Soft. Bowel sounds are normal. Musculoskeletal: Normal range of motion. Neurological: He is alert. GCS score is 15. Skin: Skin is warm and dry. Psychiatric: Affect and judgment normal. Relevant Hernia Findings - Reducible and nontender umbilical hernia, no inguinal hernia palpated on the exam LABS: Hemoglobin A1C (%) Date Value 05/13/2002 5.2 IMAGING: CT - No acute process in the abdomen or pelvis. Small nonobstructing intrarenal calculi. Assessment: Edmundo Henao is a 67 year o (more content not included)... [facility]04-29-2023 NoteHNO ID: [id number] Author: RT Steve(R) Service: Nuclear Medicine Author Type: Technologist Type: Progress Notes Filed: 06/04/2022 9:54 AM Note Text: Radiology Service Progress Note PATIENT NAME: Edmundo Henao DATE OF SERVICE: June 04, 2022 TIME: 9:50 AM PATIENT IDENTITY VERIFICATION COMPLETED USING TWO (2) IDENTIFIERS: Name and Date of confirmed by patient verbally. FALL SCREENING: Has the patient had 2 falls in the last year or 1 fall with injury or currently using an Ambulatory Assistive Device (Walker, Cane, Wheelchair, Crutches, etc.)? No PATIENT GENDER DATA: Male PATIENT RELEVANT IMPLANT DATA REVIEWED: Not Applicable RADIOLOGY DEPARTMENT: General X-ray: Exam(s) Completed: Chest X-Ray PERIPHERAL IV DATA: Not applicable SIGNED BY: RT Steve(R) June 04, 2022 9:50 [facility]04-29-2023 NoteHNO ID: [id number] Author: Jordin Camacho MD Service: ? Author Type: Physician Type: Progress Notes Filed: 06/04/2022 3:05 PM Note Text: Patient presents with: Cough: Pt reported cough x2 wks, fatigue. HPI: Coughing for 2 weeks. He had been improving. He is feeling wiped out today. Positive symptoms: Cough, maybe nocturnal Fevers, Fatigue, nocturnal pain between the shoulder blades (tender to massage), Negative symptoms: Shortness of breath, Wheezing, Sore throat, Nasal Congestion, Rhinorrhea, Headache, OTC: vicks, albuterol PAST MEDICAL HISTORY Diagnosis Date Arthritis ASCVD (arteriosclerotic cardiovascular disease) Chest pain Coronary artery disease HTN (hypertension) Pulmonary embolism (HCC) DVT with PE MEDICATIONS: Current Outpatient Medications Medication Sig albuterol HFA (PROAIR HFA) 90 mcg/actuation inhaler Inhale 2 Puffs as instructed every 6 hours as needed. losartan (COZAAR) 25 mg tablet Take 25 mg by mouth once daily. finasteride (PROSCAR) 5 mg tablet Take 5 mg by mouth once daily. amLODIPine (NORVASC) 5 mg tablet Take 1 tablet by mouth once daily. atorvastatin (LIPITOR) 10 mg tablet Take 10 mg by mouth once daily. VIT E ACETATE/VIT BCOMPANDC/ZINC (ZINC WITH VITAMINS ORAL) Take 1 capsule by mouth once daily. aspirin 81 mg cap Take 81 mg by mouth once daily. Takes periodically. Does Not take everyday. (Patient not taking: Reported on 06/04/2022) No current facility-administered medications for this visit. ALLERGIES: ALLERGIES Allergen Reactions Ampicillin Rash Niacin Rash bladder irritation with frequency Statins [Statins-Hm* Other: See Comments Ocular retinitis from Crestor VITALS: BP 130/78 Pulse 85 Temp 37.1 ?C (98.8 ?F) (Tympanic) Resp 16 Wt 105.6 kg (232 lb 12.8 oz) SpO2 97% BMI 30.71 kg/m? PHYSICAL EXAM: GEN: Pleasant, in no acute distress. HEENT: PERRL, EOMI, conjunctiva clear Ears: canals clear. TMs without erythema, bulge, or effusion Sinuses: non-tender frontal sinus, non-tender maxillary sinuses Throat: moist mucous membranes, no erythema, no exudate Neck: supple, no thyromegaly, no lymphadenopathy HEART: regular rate and rhythm, no murmurs LUNGS: clear to auscultation, no wheezes or crackles, no increased WOB ASSESSMENT/PLAN: 1. Subacute cough - ICD9: 786.2, ICD10: R05.2 (primary diagnosis) 2. Fatigue, unspecified type - ICD9: 780.79, ICD10: R53.83 - XR CHEST 2V FRONTAL/LAT - negative. Suspect new illness overnight. - 2019 CORONAVIRUS 3. Coronary artery disease involving algaaciq coronary artery of algaaciq heart without angina pectoris - ICD9: 414.01, ICD10: I25.10 Reviewed vague fatigue has been atypical presentation for a coronary event. This does not feel like his past angina. He will watch for concerning symptoms and seek evaluation if worsening. Pain with massage is reassuring sign for musculoskeletal upper back pain. Jordin Camacho, [facility]12-01-2022 Miscellaneous Notes* Telephone Encounter - China Rosas LPN - 01/06/2022 9:04 AM EST Patient notified.China Rosas LPN * Telephone Encounter - Yandy Glass APRN.CANDICE - 01/06/2022 7:19 AM EST Negative for flu and covid please notify thank you documented in [facility] encounter[facility] Influenza virus A and B RNA and SARS-CoV-2 (COVID-19) N gene panel KOSTAS+probe (Resp)COVID 19 RESULT: SARS-CoV-2 (Agent of COVID-19) Not Detected by RT-PCR or equivalent method. phoebe [id number]-WoK-5_[employer] (BIANCA)_EUA This test was developed and its performance characteristics determined by [facility]'s [facility] [place]. This test has been authorized by FDA under an Emergency Use Authorization (EUA). This test has been validated in accordance with the FDA's Guidance Document Policy for DiagnosticsTesting in Laboratories Certified to Perform High Complexity Testing under CLIA prior to Emergency use Authorization for Coronavirus Disease 2019 during the Public Health Emergency issued on April 06, 2019. Test performed by [facility], [facility] [place], [address] [place] [address]. INFLUENZA A PCR: Negative for Influenza A by RT-PCR INFLUENZA B PCR: Negative for Influenza B by RT-PCRCleveland Clinic [facility] HospitalComment on above: Performed By: #### [id number] ####[facility] LABCLIA [id number] [place] [address] [place] 01-05-2022 NoteHNO ID: [id number] Author: Lara Rowell RT(R) Service: Radiology Author Type: Technologist Type: Progress Notes Filed: 01/05/2022 8:33 AM Note Text: Radiology Service Progress Note PATIENT NAME: Edmundo Henao DATE OF SERVICE: January 05, 2022 TIME: 8:27 AM PATIENT IDENTITY VERIFICATION COMPLETED USING TWO (2) IDENTIFIERS: Name and Date of confirmed by patient verbally. FALL SCREENING: Has the patient had 2 falls in the last year or 1 fall with injury or currently using an Ambulatory Assistive Device (Walker, Cane, Wheelchair, Crutches, etc.)? No PATIENT GENDER DATA: Male PATIENT RELEVANT IMPLANT DATA REVIEWED: Yes RADIOLOGY DEPARTMENT: General X-ray: Exam(s) Completed: Chest X-Ray PERIPHERAL IV DATA: Not applicable SIGNED BY: Lara Rowell RT(R) January 05, 2022 8:27 [facility]11-30-2022 NoteHNO ID: [id number] Author: Hitesh Blair APRN.LOOM MECHANIC Service: ? Author Type: Nurse Practitioner Type: Progress Notes Filed: 01/05/2022 8:55 AM Note Text: Subjective HPI Nontoxic-appearing male presents urgent care chief complaint cough sinus pressure sore throat. Duration of symptoms 5 days. Associated symptoms listed above. Patient states was around an individual who had similar signs and symptoms 8 days ago. States this individual did have viral pneumonia when he was seen in ED. Patient states 2 days before cough started he did have body aches and chills. No known fever. Has not used any OTC medications today. Denies any significant pain. Concerned about possible pneumonia. Denies any fever body aches chills productive cough chest pain shortness of breath pleuritic pain hemoptysis nausea vomiting abdominal pain change in bowel or bladder habits. Past medical history prescription medication use and allergies reviewed. .Patient presents with: Cough: Cough, sinus and sore throat PAST MEDICAL HISTORY Diagnosis Date Arthritis ASCVD (arteriosclerotic cardiovascular disease) Chest pain Coronary artery disease HTN (hypertension) PAST SURGICAL HISTORY Procedure Laterality Date ACHILLES TENDON SURGERY HX Right Dr. Romero, tendon release ARTHROSCOPY KNEE MEDIAL RELEASE Right Dr. Zhou BACK SURGERY HX 1985 laminectomy COLONOSCOPY 10/14/2021 tubular adenoma, repeat in 5 years COLONOSCOPY FLX DX W/COLLJ SPEC WHEN PFRMD 07/2000 Colonoscopy COLONOSCOPY W/BIOPSY SINGLE/MULTIPLE 08/26/2011 CORONARY ARTERY BYP W/VEIN AND ARTERY GRAFT 5 VEIN 2001 HEART SURGERY HX HERNIA REPAIR HX Left x 2 LASER ENUCLEATION PROSTATE W/MORCELLATION PAST SURGICAL HISTORY OF Bilateral 2021 carpal tunnel TONSILLECTOMY HX VASCULAR SURGERY PROCEDURE ALLERGIES Ampicillin, Niacin, and Statins [Iuodaau-Qnw-Qwy Reductase Inhibitors] MEDICATIONS losartan (COZAAR) 25 mg tablet Take 25 mg by mouth once daily. finasteride (PROSCAR) 5 mg tablet Take 5 mg by mouth once daily. amLODIPine (NORVASC) 5 mg tablet Take 1 tablet by mouth once daily. aspirin 81 mg cap Take 81 mg by mouth once daily. Takes periodically. Does Not take everyday. atorvastatin (LIPITOR) 10 mg tablet Take 10 mg by mouth once daily. predniSONE (DELTASONE) 10 mg tablet Take 4 tablets by mouth once daily for 3 days. benzonatate (TESSALON PERLES) 100 mg capsule Take 1 capsule by mouth three times daily as needed for cough. albuterol HFA (PROAIR HFA) 90 mcg/actuation inhaler Inhale 2 Puffs as instructed every 6 hours as needed. VIT E ACETATE/VIT BCOMPANDC/ZINC (ZINC WITH VITAMINS ORAL) Take 1 capsule by mouth once daily. (Patient not taking: No sig reported) FAMILY HISTORY Problem Relation Age of Onset Heart Father Diabetes Father other (hypercholes) Mother Social History Tobacco Use Smoking status: Never Smokeless tobacco: Never Vaping Use Vaping Use: Never used Substance Use Topics Alcohol use: No Comment: almost never Drug use: No BP 138/82 Pulse 95 Temp 36.7 ?C (98 ?F) (Tympanic) Resp 18 SpO2 95% Review of Systems Constitutional: Positive for malaise/fatigue. Negative for chills and fever. HENT: Positive for congestion and sore throat. Negative for ear discharge, ear pain and sinus pain. Eyes: Negative for blurred vision, pain, discharge and redness. Respiratory: Positive for cough. Negative for hemoptysis, sputum production, shortness of breath, wheezing and stridor. Cardiovascular: Negative for chest pain. Gastrointestinal: Negative for abdominal pain, diarrhea, nausea and vomiting. Musculoskeletal: Positive for myalgias. Skin: Negative for itching and rash. Neurological: Negative for dizziness and headaches. Objective Physical Exam Constitutional: General: He is not in acute distress. Appearance: He is not diaphoretic. HENT: Head: Normocephalic. Nose: Congestion present. Mouth/Throat: Mouth: Mucous membranes are moist. Pharynx: Oropharynx is clear. No oropharyngeal exudate or posterior oropharyngeal erythema. Eyes: Conjunctiva/sclera: Conjunctivae normal. Pupils: Pupils are equal, round, and reactive to light. Cardiovascular: Rate and Rhythm: Normal rate and regular rhythm. Heart sounds: Normal heart sounds. Pulmonary: Effort: Pulmonary effort is normal. No tachypnea, accessory muscle usage or respiratory distress. Breath sounds: No stridor. Wheezing present. No rhonchi or rales. Abdominal: Palpations: Abdomen is soft. Tenderness: There is no abdominal tenderness. Musculoskeletal: Cervical back: Normal range of motion and neck supple. No rigidity or tenderness. Lymphadenopathy: Cervical: No cervical adenopathy. Skin: General: Skin is warm and dry. Neurological: Mental Status: He is alert and oriented to person, place, and time. ASSESSMENT/PLAN: 1. Acute cough - ICD9: 786.2, ICD10: R05.1 - XR CHEST 2V FRONTAL (more content not included)...[facility] 01-05-2022 Instructions* Patient Instructions* Hietsh Blair APRN.[facility] - 01/05/2022 8:23 AM EST How to Manage Common Symptoms Associated with COVID for Adults Fever- Fever is a temperature over 100.4 F and can occur when the body is fighting an infection. Tohelp treat a fever: Drink plenty of fluids and stay well hydrated. Eat small amounts of easy to digest food. Rest. Your body needs rest to recover, but getting up and moving around the house frequently is a good idea. You should try to continue doing your normal daily activities (bathing, toileting, grooming, cooking), though you will probably feel tired, and need to rest often. Avoid any heavy activity or exercise, as this will increase your body temperature. Dress in light clothing and stay covered in a light sheet. Keep the room temperature cool. Take a slightly warm (not cold or cool) bath, or apply damp washcloths to the forehead and wrists. Cough- Cough is a common symptom associated with COVID and can be bothersome. To help treat a cough: Stay well hydrated. Try warm water or tea with lemon and/or honey to help soothe the cough. Use a humidifier to add moisture to the air. Try a product with menthol, like a cough drop or a rub for your chest such as Vicks, which can helpreduce cough. Try cough drops. Avoid smoking and other strong odors or perfumes. Try breathing exercises to keep your lungs open and clear. Take a big deep breath through your noseand hold for 5 seconds before slowly releasing. Repeat frequently, while you are awake. Congestion- Runny nose or nasal congestion can occur with COVID. Treatment can help relieve symptoms: Try OTC nasal saline spray, or nasal saline rinse to relieve mucus congestion. Nasal strips can help keep nasal passages open, to increase airflow. Elevating your head with an extra pillow in bed can help reduce congestion. Using a humidifier can increase moisture in the air, and make breathing easier. Sore Throat- Another common symptom with COVID, can be managed at home by: Stay well hydrated. Gargle with salt water - mix teaspoon salt with 1 cup of warm water and gargle. This helps to loosen mucus in the back of the throat and may reduce discomfort. Try ice chips, popsicles or lozenges to soothe the throat. Nausea/Vomiting/Diarrhea- These are common symptoms, and staying hydrated is most important. If you are nauseous or vomiting, start with small sips of water every 10-15 minutes and increase astolerated. You can try sucking an ice cube too. If tolerating, you can try pedialyte or Gatorade, or flat sprite or esha-anastasia. Start slowly and increase as you are able to. Instead of meals, try smaller, more frequent snacks. Try eating bland foods like crackers, toast, rice, and applesauce. Avoid spicy, greasy or fried foods and dairy containing foods. Even if you aren't feeling hungry due to lack of smell or taste, it is important to try to take in some food when you are able. After drinking and eating, rest in an upright position for up to two hours as needed to help decrease nauseous feelings. Try closing your eyes, avoid moving and watching TV. Avoid strong odors that can make you feel more nauseated. When to seek emergency medical attention Look for emergency warning signs for COVID-19. If having any of these symptoms, seek emergency medical care immediately: Trouble breathing Persistent pain or pressure in the chest New confusion Inability to wake or stay awake Bluish lips or face *This list is not all possible symptoms. Please call your medical provider for any other symptoms that are severe or concerning to you. documented [facility] this [facility] History of Present illness Narrative* Hitesh Blair APRN.[employer] - 01/05/2022 8:15 AM EST Subjective HPI Nontoxic-appearing male presents urgent care chief complaint cough sinus pressure sore throat. Duration of symptoms 5 days. Associated symptoms listed above. Patient states was around an individual who had similar signs and symptoms 8 days ago. States this individual did have viral pneumonia when he was seen in ED. Patient states 2 days before cough started he did have body aches and chills. No known fever. Has not used any OTC medications today. Denies any significant pain. Concerned about possible pneumonia. Denies any fever body aches chills productive cough chest pain shortness of breath pleuritic pain hemoptysis nausea vomiting abdominal pain change in bowel or bladder habits. Past medical history prescription medication use and allergies reviewed. .Patient presents with: Cough: Cough, sinus and sore throat PAST MEDICAL HISTORY Diagnosis Date Arthritis ASCVD (arteriosclerotic cardiovascular disease) Chest pain Coronary artery disease HTN (hypertension) PAST SURGICAL HISTORY Procedure Laterality Date ACHILLES TENDON SURGERY HX Right Dr. Romero, tendon release ARTHROSCOPY KNEE MEDIAL RELEASE Right Dr. Zhou BACK SURGERY HX 1985 laminectomy COLONOSCOPY 10/14/2021 tubular adenoma, repeat in 5 years COLONOSCOPY FLX DX W/COLLJ SPEC WHEN PFRMD 07/2000 Colonoscopy COLONOSCOPY W/BIOPSY SINGLE/MULTIPLE 08/26/2011 CORONARY ARTERY BYP W/VEIN & ARTERY GRAFT 5 VEIN 2001 HEART SURGERY HX HERNIA REPAIR HX Left x 2 LASER ENUCLEATION PROSTATE W/MORCELLATION PAST SURGICAL HISTORY OF Bilateral 2021 carpal tunnel TONSILLECTOMY HX VASCULAR SURGERY PROCEDURE ALLERGIES Ampicillin, Niacin, and Statins [Iruuypd-Cuo-Fyj Reductase Inhibitors] MEDICATIONS losartan (COZAAR) 25 mg tablet Take 25 mg by mouth once daily. finasteride (PROSCAR) 5 mg tablet Take 5 mg by mouth once daily. amLODIPine (NORVASC) 5 mg tablet Take 1 tablet by mouth once daily. aspirin 81 mg cap Take 81 mg by mouth once daily. Takes periodically. Does Not take everyday. atorvastatin (LIPITOR) 10 mg tablet Take 10 mg by mouth once daily. predniSONE (DELTASONE) 10 mg tablet Take 4 tablets by mouth once daily for 3 days. benzonatate (TESSALON PERLES) 100 mg capsule Take 1 capsule by mouth three times daily as needed for cough. albuterol HFA (PROAIR HFA) 90 mcg/actuation inhaler Inhale 2 Puffs as instructed every 6 hours as needed. VIT E ACETATE/VIT BCOMP&C/ZINC (ZINC WITH VITAMINS ORAL) Take 1 capsule by mouth once daily. (Patient not taking: No sig reported) FAMILY HISTORY Problem Relation Age of Onset Heart Father Diabetes Father other (hypercholes) Mother Social History Tobacco Use Smoking status: Never Smokeless tobacco: Never Vaping Use Vaping Use: Never used Substance Use Topics Alcohol use: No Comment: almost never Drug use: No BP 138/82 Pulse 95 Temp 36.7 C (98 F) (Tympanic) Resp 18 SpO2 95% Review of Systems Constitutional: Positive for malaise/fatigue. Negative for chills and fever. HENT: Positive for congestion and sore throat. Negative for ear discharge, ear pain and sinus pain. Eyes: Negative for blurred vision, pain, discharge and redness. Respiratory: Positive for cough. Negative for hemoptysis, sputum production, shortness of breath, wheezing and stridor. Cardiovascular: Negative for chest pain. Gastrointestinal: Negative for abdominal pain, diarrhea, nausea and vomiting. Musculoskeletal: Positive for myalgias. Skin: Negative for itching and rash. Neurological: Negative for dizziness and headaches. Objective Physical Exam Constitutional: General: He is not in acute distress. Appearance: He is not diaphoretic. HENT: Head: Normocephalic. Nose: Congestion present. Mouth/Throat: Mouth: Mucous membranes are moist. Pharynx: Oropharynx is clear. No oropharyngeal exudate or posterior oropharyngeal erythema. Eyes: Conjunctiva/sclera: Conjunctivae normal. Pupils: Pupils are equal, round, and reactive to light. Cardiovascular: Rate and Rhythm: Normal rate and regular rhythm. Heart sounds: Normal heart sounds. Pulmonary: Effort: Pulmonary effort is normal. No tachypnea, accessory muscle usage or respiratory distress. Breath sounds: No stridor. Wheezing present. No rhonchi or rales. Abdominal: Palpations: Abdomen is soft. Tenderness: There is no abdominal tenderness. Musculoskeletal: Cervical back: Normal range of motion and neck supple. No rigidity or tenderness. Lymphadenopathy: Cervical: No cervical adenopathy. Skin: General: Skin is warm and dry. Neurological: Mental Status: He is alert and oriented to person, place, and time. ASSESSMENT/PLAN: 1. Acute cough - ICD9: 786.2, ICD10: R05.1 - XR CHEST 2V FRONTAL/LAT IMPRESSION: No acute radiographic abnormality. No acute findings noted on chest x-ray. Suspicious of viral illness. Will test for COVID-19 and influenza. Patient will be placed on prednisone burst and cough suppressant as needed albuterol inhaler. Will not take with NSAIDs. Follow-up with PCP 2 to 3 days. Red flags for prompt reevaluation discussed. Patient was educated on supportive therapies. Patient was instructed to immediately proceed toemergency room for any new, worsening, or symptoms lasting longer than anticipated. The patient's clinical presentation is otherwise unremarkable at this time. Based on exam and clinical finding, thepatient is stable for discharge. Plan of care was discussed with patient. Patient verbalizes underst anding and agrees to plan of care. This note was generated using [employer] software. It may contain errors in wording, punctuation, or spelling. Hitesh Blair APRN.CANDICE documented in this encounterAkron [facility] NoteHNO ID: [id number] Author: Giovany Lazar MD Service: ? Author Type: Physician Type: Progress Notes Filed: 10/22/2021 9:09 AM Note Text: Subjective: Patient is status post a colonoscopy on 10/14/2021. Noted to have a tubular adenoma of his ascending colon. In addition he also had some nonbleeding internal hemorrhoids. Patient states that he is moving his bowels without difficulty having no abdominal pain. In addition the patient has a small umbilical hernia. Subjective: Blood pressure 148/88, pulse 87, temperature 36.2 ?C (97.1 ?F), height 185.4 cm (6' 1 ), weight 103.9 kg (229 lb), SpO2 96 %. Abdomen is soft small reducible umbilical hernia is identified. Assessment: Tubular adenoma of the ascending colon, umbilical hernia Plan: Patient is going to come back and see me within 30 days when he noticed that he would like to have his umbilical hernia repaired. He will need another colonoscopy in 5 years.[facility] History of Present illness Narrative* Giovany Lazar MD - 10/22/2021 9:05 AM EDT Subjective: Patient is status post a colonoscopy on 10/14/2021. Noted to have a tubular adenoma of his ascending colon. In addition he also had some nonbleeding internal hemorrhoids. Patient states that he is moving his bowels without difficulty having no abdominal pain. In addition the patient has a small umbilical hernia. Subjective: Blood pressure 148/88, pulse 87, temperature 36.2 C (97.1 F), height 185.4 cm (6' 1 ), weight 103.9 kg (229 lb), SpO2 96 %. Abdomen is soft small reducible umbilical hernia is identified. Assessment: Tubular adenoma of the ascending colon, umbilical hernia Plan: Patient is going to come back and see me within 30 days when he noticed that he would like tohave his umbilical hernia repaired. He will need another colonoscopy in 5 years. documented in this encounterAkron [facility]09-08-2022 NoteHNO ID: [id number] Author: Jane Flores RN Service: ? Author Type: Registered Nurse Type: Nursing Progress Note Filed: 10/14/2021 11:30 AM Note Text: Starting to pass air rectally. Jane Flores [facility]NCleveland [facility] Nurse Note* Jane Flores RN - 10/14/2021 11:34 AM EDT Abd much softer and appears to be much less distended. Pt states the pressure feeling is better. Still denies any pain, cramping or nausea. Jane Flores RN * Jane Flores RN - 10/14/2021 11:30 AM EDT Starting to pass air rectally. Jane Flores RN * Jane Flores RN - 10/14/2021 11:20 AM EDT Pt unable to pass any air rectally. Abd remains firm and distended. Back to bed on right side with warm blanket to abd to see if pt can move any air in that position. Jane Flores RN * Jane Flores RN - 10/14/2021 11:10 AM EDT Pt's abd still distended and firm. Pt states feels pressure but denies cramping, pain or nausea. Tolerated snack and drink well. Ambulated to the restroom to see if he can pass some air and gas. Wifeat bedside. Jane Flores RN * Jane Flores RN - 10/14/2021 10:38 AM EDT Pt received in PACU. Pt moderately drowsy, but arouses very easily. Denies cramping, pain or nausea. Abd distended and slightly firm. Jane Flores RN documented in this encounterAkron [facility]09-08-2022 History and physical note * Giovany Lazar MD - 10/14/2021 10:30 AM EDT Images from the original note were not included. HISTORY AND PHYSICAL Edmundo Henao 1955 REFERRING PHYSICIAN: Praveena Foster DO CHIEF COMPLAINT: Consult (colonoscopy, possible hernia) HPI: The patient is a 66 year old male referred for screening endoscopy. Edmundo notes occasional blood with wiping after straining with a bowel movement. He notes he has good fluid intake and is now taking Metamucil which helps to regulate his bowels. Notes a past history of anal fissure. Patient denies any weight changes, blood mixed in stools, black tarry stools or abdominal pain. He reports family history of colitis in an aunt, denies any known family history of colon cancer. The patient notes no upper GI complaints. Edmundo has undergone prior endoscopy. Most recent colonoscopy 08/26/[address] Donahue with findings of internal hemorrhoids, diverticulosis and a benign non- adenomatous rectal polyp. Patient's past medical history is significant for PEs following prostate surgery, had IVC filter placement. He is no longer on anticoagulation. He is following with orthopedics for knee issues and has upcoming arthroscopy planned. He was hospitalized earlier this year with sepsis from a UTI and prostatitis. Patient follows with Dr. Praveena Foster in primary care. Patient reports feeling well currently. He denies chest pain, shortness of breath, or further hospitalizations since April 2021. He denies problems with sedation in the past. PAST MEDICAL HISTORY PAST MEDICAL HISTORY Diagnosis Date ASCVD (arteriosclerotic cardiovascular disease) Chest pain HTN (hypertension) PAST SURGICAL HISTORY PAST SURGICAL HISTORY Procedure Laterality Date ACHILLES TENDON SURGERY HX Right Dr. Romero, tendon release ARTHROSCOPY KNEE MEDIAL RELEASE Right Dr. Zhou BACK SURGERY HX 1985 laminectomy COLONOSCOPY FLX DX W/COLLJ SPEC WHEN PFRMD 07/2000 Colonoscopy COLONOSCOPY W/BIOPSY SINGLE/MULTIPLE 08/26/2011 CORONARY ARTERY BYP W/VEIN & ARTERY GRAFT 5 VEIN 2002 HERNIA REPAIR HX Left x 2 LASER ENUCLEATION PROSTATE W/MORCELLATION PAST SURGICAL HISTORY OF Bilateral 2021 carpal tunnel CURRENT MEDICATIONS Current Outpatient Medications Medication Sig amLODIPine (NORVASC) 5 mg tablet Take 1 tablet by mouth once daily. aspirin 81 mg cap Take 81 mg by mouth once daily. Takes periodically. Does Not take everyday. atorvastatin (LIPITOR) 10 mg tablet Take 10 mg by mouth once daily. VIT E ACETATE/VIT BCOMP&C/ZINC (ZINC WITH VITAMINS ORAL) Take 1 capsule by mouth once daily. (Patient not taking: Reported on 09/01/2021 ) No current facility-administered medications for this visit. ALLERGIES: Ampicillin, Niacin, and Statins [Xxtnncc-Mwa-Iyx Reductase Inhibitors] PERSONAL HISTORY: SOCIAL HISTORY Social History Tobacco Use Smoking status: Never Smoker Smokeless tobacco: Never Used Vaping Use Vaping Use: Never used Substance Use Topics Alcohol use: No Comment: almost never Drug use: No FAMILY HISTORY: FAMILY HISTORY FAMILY HISTORY Problem Relation Age of Onset Heart Father Diabetes Father other (hypercholes) Mother REVIEW OF SYMPTOMS: The review of systems data was entered by the nurse and reviewed by me Nursing Notes: Bridgett Menjivar LPN 09/01/2021 8:46 AM Signed REVIEW OF SYSTEMS: General: The patient denies fatigue, denies weight loss, denies weight gain, denies feeling hot, and denies feelings of cold. Eyes: The patient denies glaucoma, denies eye injury/surgery, wears glasses or contacts. Ear/Nose/Throat: The patient notes allergies, denies hayfever, denies ear infections, and denies bloody noses. Cardiovascular: The patient denies chest pain, notes heart disease, notes high blood pressure,denies cardiac stent, denies prior heart attack, notes irregular heart beat, denies high cholesterol, denies poor circulation, notes heart failure, other cardiac issues, denies claudication, denies cold feet, denies peripheral arterial stent. Respiratory: The patient denies tuberculosis, denies pneumonia, denies frequent cough, notes pulmonary embolism, denies shortness of breath, and denies coughing up blood. Gastrointestinal: The patient denies difficulty swallowing, denies acid reflux, notes ulcers, denies vomiting, denies jaundice/hepatitis, denies gallbladder problems, denies black or tarry stools, denies hemorrhoids, denies bleeding from rectum, notes diverticulitis, denies constipation, denies diarrhea, denies loss of stool control, and denies hernias. Kidney/Bladder: The patient notes kidney stones, notes urine infections, and denies bloody urine. Skin: The patient denies a history of skin cancer, denies bleeding/changing moles, and denies a history of skin rash. Neurologic: The patient denies a history of epilepsy/convulsions, denies headaches, notes head/spinal injuries, and denies stroke/TIA. Psychiatric: The patient denies psychiatric medications, denies depression, and denies voices, denies substance abuse. Endocrine: The patient denies thyroid disorders, denies diabetes, and denies hormonal problems. Hematologic: The patient denies a history of bruising, denies bleeding, and denies anemia, notes blood clots. Infections: The patient denies a history of measles and mumps, denies rheumatic fever, and denies sexually transmitted diseases. Musculoskeletal: The patient notes back pain/injury, denies back problems, denies sciatica, notes knee/foot trouble, denies arthritis, or denies gout. When was patient's last Mammogram screening? N/A Last Colonoscopy: 2011 Bridgett Menjivar LPN I have confirmed and edited as necessary, the PFSH and ROS obtained by others. Abril Hassan PA-C PHYSICAL EXAMINATION: General: The patient is 66 year old male, well nourished, well hydrated in no acute distress. The patient is oriented to time, place, and person. VITALS: Blood pressure 114/76, pulse 91, temperature 36 C (96.8 F), height 182.9 cm (6'), weight 103.9 kg (229 lb), SpO2 98 %. There is no height or weight on file to calculate BMI. HEENT: Normal cephalic, ataumatic, pupils are equally round, sclera are anicteric, mucous membranesare moist, oropharynx is clear. Neck has no masses, asymmetry or lymphadenopathy. Respiratory: Clear to auscultation and percussion. Normal respiratory excursion and pattern. Cardiac: Examination is regular rate and rhythm. Normal S1/S2 Abdominal exam: Soft, nontender, with no palpable masses. No hepatosplenomegaly. No palpable hernias. Extremities: no clubbing, cyanosis or edema. No adenopathy. LABORATORY VALUES: As Noted RADIOLOGIC STUDIES: As Noted Assessment IMPRESSION: encounter for screening colonoscopy PLAN: I have reviewed my findings with the surgeon. Will plan for lower endoscopy. We discussed therisks and benefits of the planned endoscopy. I have informed the patient that complications can occur including failure to complete the endoscopy and perforation. The patient had the opportunity to ask questions concerning the planned endoscopy. My staff has also explained the procedure to the patient in understandable terms and has given the patient printed material concerning the procedure. Thepatient freely consents to surgery. The patient was offered a surgery/procedure at a [facility]. I have counseled the patient regarding the risk of exposure to and/or potential harm posed by the COVID-19 virus with having a surgery/procedure at this time versus the risk of delaying the surgery/procedure. It is not possible to know either the risk of delaying the surgery or procedure or chance of getting an infection with perfect accuracy, but a joint decision was made between the patient and myself to proceed at this time with endoscopy. I plan to use Golytely bowel preparation Diagnoses: (Z12.11) Encounter for screening for malignant neoplasm of colon (primary encounter diagnosis) Consultation requested by Dr. Praveena Foster for an opinion regarding colonoscopy. My final recommendations will be communicated back to the requesting physician by way of shared Medical record or letter to requesting physician via US mail. Abril Hassan PA-C UPDATED HISTORY AND PHYSICAL EXAMINATION SERVICE DATE: 10/14/2021 SERVICE TIME: 10:13 AM PHYSICAL EXAM MUST BE COMPLETED ON ADMISSION The History and Physical (completed in the past 30 days) has been reviewed and the patient has beenexamined. The contents accurately reflect the patient's condition with the following additions or revisions since the H&P was completed. Examination indicates no changes. This H&P can be found in the attached. SIGNATURE: Giovany Lazar III, MD PATIENT NAME: Edmundo Henao DATE: October 14, 2021 TIME: 10:13 AM documented in this encounterAkron [facility]07-27-2022 NoteHNO ID: [id number] Author: Abril Hassan PA-C Service: ? Author Type: Physician Triage Registered Nurse Type: Progress Notes Filed: 09/06/2021 11:39 AM Note Text: HISTORY AND PHYSICAL Edmundo Henao 1955 REFERRING PHYSICIAN: Praveena Foster DO CHIEF COMPLAINT: Consult (colonoscopy, possible hernia) HPI: The patient is a 66 year old male referred for screening endoscopy. Edmundo notes occasional blood with wiping after straining with a bowel movement. He notes he has good fluid intake and is now taking Metamucil which helps to regulate his bowels. Notes a past history of anal fissure. Patient denies any weight changes, blood mixed in stools, black tarry stools or abdominal pain. He reports family history of colitis in an aunt, denies any known family history of colon cancer. The patient notes no upper GI complaints. Edmundo has undergone prior endoscopy. Most recent colonoscopy 08/26/[address] Donahue with findings of internal hemorrhoids, diverticulosis and a benign non-adenomatous rectal polyp. Patient's past medical history is significant for PEs following prostate surgery, had IVC filter placement. He is no longer on anticoagulation. He is following with orthopedics for knee issues and has upcoming arthroscopy planned. He was hospitalized earlier this year with sepsis from a UTI and prostatitis. Patient follows with Dr. Praveena Foster in primary care. Patient reports feeling well currently. He denies chest pain, shortness of breath, or further hospitalizations since April 2021. He denies problems with sedation in the past. PAST MEDICAL HISTORY Diagnosis Date - ASCVD (arteriosclerotic cardiovascular disease) - Chest pain - HTN (hypertension) PAST SURGICAL HISTORY Procedure Laterality Date - ACHILLES TENDON SURGERY HX Right Dr. Romero, tendon release - ARTHROSCOPY KNEE MEDIAL RELEASE Right Dr. Zhou - BACK SURGERY HX 1985 laminectomy - COLONOSCOPY FLX DX W/COLLJ SPEC WHEN PFRMD 07/2000 Colonoscopy - COLONOSCOPY W/BIOPSY SINGLE/MULTIPLE 08/26/2011 - CORONARY ARTERY BYP W/VEIN AND ARTERY GRAFT 5 VEIN 2001 - HERNIA REPAIR HX Left x 2 - LASER ENUCLEATION PROSTATE W/MORCELLATION - PAST SURGICAL HISTORY OF Bilateral 2021 carpal tunnel Current Outpatient Medications Medication Sig - amLODIPine (NORVASC) 5 mg tablet Take 1 tablet by mouth once daily. - aspirin 81 mg cap Take 81 mg by mouth once daily. Takes periodically. Does Not take everyday. - atorvastatin (LIPITOR) 10 mg tablet Take 10 mg by mouth once daily. - VIT E ACETATE/VIT BCOMPANDC/ZINC (ZINC WITH VITAMINS ORAL) Take 1 capsule by mouth once daily. (Patient not taking: Reported on 09/01/2021 ) No current facility-administered medications for this visit. ALLERGIES: Ampicillin, Niacin, and Statins [Peojmws-Sgg-Iyr Reductase Inhibitors] PERSONAL HISTORY: Social History Tobacco Use - Smoking status: Never Smoker - Smokeless tobacco: Never Used Vaping Use - Vaping Use: Never used Substance Use Topics - Alcohol use: No Comment: almost never - Drug use: No FAMILY HISTORY: FAMILY HISTORY Problem Relation Age of Onset - Heart Father - Diabetes Father - other (hypercholes) Mother REVIEW OF SYMPTOMS: The review of systems data was entered by the nurse and reviewed by nm Nursing Notes: Bridgett Menjivar LPN 09/01/2021 8:46 AM Signed REVIEW OF SYSTEMS: General: The patient denies fatigue, denies weight loss, denies weight gain, denies feeling hot, and denies feelings of cold. Eyes: The patient denies glaucoma, denies eye injury/surgery, wears glasses or contacts. Ear/Nose/Throat: The patient notes allergies, denies hayfever, denies ear infections, and denies bloody noses. Cardiovascular: The patient denies chest pain, notes heart disease, notes high blood pressure,denies cardiac stent, denies prior heart attack, notes irregular heart beat, denies high cholesterol, denies poor circulation, notes heart failure, other cardiac issues, denies claudication, denies cold feet, denies peripheral arterial stent. Respiratory: The patient denies tuberculosis, denies pneumonia, denies frequent cough, notes pulmonary embolism, denies shortness of breath, and denies coughing up blood. Gastrointestinal: The patient denies difficulty swallowing, denies acid reflux, notes ulcers, denies vomiting, denies jaundice/hepatitis, denies gallbladder problems, denies black or tarry stools, denies hemorrhoids, denies bleeding from rectum, notes diverticulitis, denies constipation, denies diarrhea, denies loss of stool control, and denies hernias. Kidney/Bladder: The patient notes kidney stones, notes urine infections, and denies bloody urine. Skin: The patient denies a history of skin cancer, denies bleeding/changing moles, and denies a history of skin rash. Neurologic: The patient denies a history of epilepsy/convulsions, denies headaches, notes head/spinal injuries, and denies stroke/TI (more content not included)...[facility]07-27-2022 Nurse Note* Bridgett Menjivar, ROXIE - 09/01/2021 8:42 AM EDT REVIEW OF SYSTEMS: General: The patient denies fatigue, denies weight loss, denies weight gain, denies feeling hot, and denies feelings of cold. Eyes: The patient denies glaucoma, denies eye injury/surgery, wears glasses or contacts. Ear/Nose/Throat: The patient notes allergies, denies hayfever, denies ear infections, and denies bloody noses. Cardiovascular: The patient denies chest pain, notes heart disease, notes high blood pressure,denies cardiac stent, denies prior heart attack, notes irregular heart beat, denies high cholesterol, denies poor circulation, notes heart failure, other cardiac issues, denies claudication, denies cold feet, denies peripheral arterial stent. Respiratory: The patient denies tuberculosis, denies pneumonia, denies frequent cough, notes pulmonary embolism, denies shortness of breath, and denies coughing up blood. Gastrointestinal: The patient denies difficulty swallowing, denies acid reflux, notes ulcers, denies vomiting, denies jaundice/hepatitis, denies gallbladder problems, denies black or tarry stools, denies hemorrhoids, denies bleeding from rectum, notes diverticulitis, denies constipation, denies diarrhea, denies loss of stool control, and denies hernias. Kidney/Bladder: The patient notes kidney stones, notes urine infections, and denies bloody urine. Skin: The patient denies a history of skin cancer, denies bleeding/changing moles, and denies a history of skin rash. Neurologic: The patient denies a history of epilepsy/convulsions, denies headaches, notes head/spinal injuries, and denies stroke/TIA. Psychiatric: The patient denies psychiatric medications, denies depression, and denies voices, denies substance abuse. Endocrine: The patient denies thyroid disorders, denies diabetes, and denies hormonal problems. Hematologic: The patient denies a history of bruising, denies bleeding, and denies anemia, notes blood clots. Infections: The patient denies a history of measles and mumps, denies rheumatic fever, and denies sexually transmitted diseases. Musculoskeletal: The patient notes back pain/injury, denies back problems, denies sciatica, notes knee/foot trouble, denies arthritis, or denies gout. When was patient's last Mammogram screening? N/A Last Colonoscopy: 2011 Bridgett Menjivar LPN [facility] History of Present illness Narrative* Abril Hassan PA-C - 09/01/2021 8:39 AM EDT HISTORY AND PHYSICAL Edmundo Henao 1955 REFERRING PHYSICIAN: Praveena Foster DO CHIEF COMPLAINT: Consult (colonoscopy, possible hernia) HPI: The patient is a 66 year old male referred for screening endoscopy. Edmundo notes occasional blood with wiping after straining with a bowel movement. He notes he has good fluid intake and is now taking Metamucil which helps to regulate his bowels. Notes a past history of anal fissure. Patient denies any weight changes, blood mixed in stools, black tarry stools or abdominal pain. He reports family history of colitis in an aunt, denies any known family history of colon cancer. The patient notes no upper GI complaints. Edmundo has undergone prior endoscopy. Most recent colonoscopy 08/26/[address] Donahue with findings of internal hemorrhoids, diverticulosis and a benign non- adenomatous rectal polyp. Patient's past medical history is significant for PEs following prostate surgery, had IVC filter placement. He is no longer on anticoagulation. He is following with orthopedics for knee issues and has upcoming arthroscopy planned. He was hospitalized earlier this year with sepsis from a UTI and prostatitis. Patient follows with Dr. Praveena Foster in primary care. Patient reports feeling well currently. He denies chest pain, shortness of breath, or further hospitalizations since April 2021. He denies problems with sedation in the past. PAST MEDICAL HISTORY Diagnosis Date ASCVD (arteriosclerotic cardiovascular disease) Chest pain HTN (hypertension) PAST SURGICAL HISTORY Procedure Laterality Date ACHILLES TENDON SURGERY HX Right Dr. Romero, tendon release ARTHROSCOPY KNEE MEDIAL RELEASE Right Dr. Zhou BACK SURGERY HX 1985 laminectomy COLONOSCOPY FLX DX W/COLLJ SPEC WHEN PFRMD 07/2000 Colonoscopy COLONOSCOPY W/BIOPSY SINGLE/MULTIPLE 08/26/2011 CORONARY ARTERY BYP W/VEIN & ARTERY GRAFT 5 VEIN 2001 HERNIA REPAIR HX Left x 2 LASER ENUCLEATION PROSTATE W/MORCELLATION PAST SURGICAL HISTORY OF Bilateral 2021 carpal tunnel Current Outpatient Medications Medication Sig amLODIPine (NORVASC) 5 mg tablet Take 1 tablet by mouth once daily. aspirin 81 mg cap Take 81 mg by mouth once daily. Takes periodically. Does Not take everyday. atorvastatin (LIPITOR) 10 mg tablet Take 10 mg by mouth once daily. VIT E ACETATE/VIT BCOMP&C/ZINC (ZINC WITH VITAMINS ORAL) Take 1 capsule by mouth once daily. (Patient not taking: Reported on 09/01/2021 ) No current facility-administered medications for this visit. ALLERGIES: Ampicillin, Niacin, and Statins [Qrnggyu-Tvh-Dtl Reductase Inhibitors] PERSONAL HISTORY: Social History Tobacco Use Smoking status: Never Smoker Smokeless tobacco: Never Used Vaping Use Vaping Use: Never used Substance Use Topics Alcohol use: No Comment: almost never Drug use: No FAMILY HISTORY: FAMILY HISTORY Problem Relation Age of Onset Heart Father Diabetes Father other (hypercholes) Mother REVIEW OF SYMPTOMS: The review of systems data was entered by the nurse and reviewed by me Nursing Notes: Bridgett Menjivar ROXIE 09/01/2021 8:46 AM Signed REVIEW OF SYSTEMS: General: The patient denies fatigue, denies weight loss, denies weight gain, denies feeling hot, and denies feelings of cold. Eyes: The patient denies glaucoma, denies eye injury/surgery, wears glasses or contacts. Ear/Nose/Throat: The patient notes allergies, denies hayfever, denies ear infections, and denies bloody noses. Cardiovascular: The patient denies chest pain, notes heart disease, notes high blood pressure,denies cardiac stent, denies prior heart attack, notes irregular heart beat, denies high cholesterol, denies poor circulation, notes heart failure, other cardiac issues, denies claudication, denies cold feet, denies peripheral arterial stent. Respiratory: The patient denies tuberculosis, denies pneumonia, denies frequent cough, notes pulmonary embolism, denies shortness of breath, and denies coughing up blood. Gastrointestinal: The patient denies difficulty swallowing, denies acid reflux, notes ulcers, denies vomiting, denies jaundice/hepatitis, denies gallbladder problems, denies black or tarry stools, denies hemorrhoids, denies bleeding from rectum, notes diverticulitis, denies constipation, denies diarrhea, denies loss of stool control, and denies hernias. Kidney/Bladder: The patient notes kidney stones, notes urine infections, and denies bloody urine. Skin: The patient denies a history of skin cancer, denies bleeding/changing moles, and denies a history of skin rash. Neurologic: The patient denies a history of epilepsy/convulsions, denies headaches, notes head/spinal injuries, and denies stroke/TIA. Psychiatric: The patient denies psychiatric medications, denies depression, and denies voices, denies substance abuse. Endocrine: The patient denies thyroid disorders, denies diabetes, and denies hormonal problems. Hematologic: The patient denies a history of bruising, denies bleeding, and denies anemia, notes blood clots. Infections: The patient denies a history of measles and mumps, denies rheumatic fever, and denies sexually transmitted diseases. Musculoskeletal: The patient notes back pain/injury, denies back problems, denies sciatica, notes knee/foot trouble, denies arthritis, or denies gout. When was patient's last Mammogram screening? N/A Last Colonoscopy: 2011 Bridgett Menjivar LPN I have confirmed and edited as necessary, the PFSH and ROS obtained by others. Abril Hassan PA-C PHYSICAL EXAMINATION: General: The patient is 66 year old male, well nourished, well hydrated in no acute distress. The patient is oriented to time, place, and person. VITALS: Blood pressure 114/76, pulse 91, temperature 36 C (96.8 F), height 182.9 cm (6'), weight 103.9 kg (229 lb), SpO2 98 %. There is no height or weight on file to calculate BMI. HEENT: Normal cephalic, ataumatic, pupils are equally round, sclera are anicteric, mucous membranesare moist, oropharynx is clear. Neck has no masses, asymmetry or lymphadenopathy. Respiratory: Clear to auscultation and percussion. Normal respiratory excursion and pattern. Cardiac: Examination is regular rate and rhythm. Normal S1/S2 Abdominal exam: Soft, nontender, with no palpable masses. No hepatosplenomegaly. No palpable hernias. Extremities: no clubbing, cyanosis or edema. No adenopathy. LABORATORY VALUES: As Noted RADIOLOGIC STUDIES: As Noted Assessment IMPRESSION: encounter for screening colonoscopy PLAN: I have reviewed my findings with the surgeon. Will plan for lower endoscopy. We discussed therisks and benefits of the planned endoscopy. I have informed the patient that complications can occur including failure to complete the endoscopy and perforation. The patient had the opportunity to ask questions concerning the planned endoscopy. My staff has also explained the procedure to the patient in understandable terms and has given the patient printed material concerning the procedure. Thepatient freely consents to surgery. The patient was offered a surgery/procedure at a [facility] facility. I have counseled the patient regarding the risk of exposure to and/or potential harm posed by the COVID-19 virus with having a surgery/procedure at this time versus the risk of delaying the surgery/procedure. It is not possible to know either the risk of delaying the surgery or procedure or chance of getting an infection with perfect accuracy, but a joint decision was made between the patient and myself to proceed at this time with endoscopy. I plan to use Golytely bowel preparation Diagnoses: (Z12.11) Encounter for screening for malignant neoplasm of colon (primary encounter diagnosis) Consultation requested by Dr. Praveena Foster for an opinion regarding colonoscopy. My final recommendations will be communicated back to the requesting physician by way of shared Medical record or letter to requesting physician via US mail. Abril Hassan PA-C [facility] NoteHNO ID: [id number] Author: Wild Hewitt MD Service: Infectious Disease Author Type: Physician Type: Progress Notes Filed: 05/07/2021 8:25 AM Note Text: INFECTIOUS DISEASE PROGRESS NOTE Patient Name: Edmundo Henao ASSESSMENT: Klebsiella Oxytoca Bacteremia Complicated UTI (urinary tract infection) - Klebsiella Oxytoca Prostatitis Hypertension Sepsis Prostatitis Hyperlipidemia BPH with obstruction/lower urinary tract symptoms ? PLAN: Continue oral Bactrim DS x 3 weeks more Check renal ultrasound. May need CT scan of the abdomen and pelvis if more fevers occur F/U Repeat BCx x 2 - ngtd Consider renal US in setting of ongoing fever Noted PSA level, follow up Monitor temps and counts Noted Neurology evaluation Colonoscopy as OP Discussed w patient and Dr Greg Boucher INTERVAL HISTORY: Finally afebrile for the past 24 hours. Passed a small kidney stone yesterday Urinary symptoms have improved Leukocytosis resolved Repeat blood cultures 05/03 ngtd MEDICATIONS: reviewed. Current Facility-Administered Medications Medication Dose Route Frequency - NaCl 0.9% iv flush bag 20 mL INTRAVENOUS PRN - atorvastatin 10 mg tab(s) (LIPITOR) 10 mg ORAL DAILY - losartan 50 mg tab(s) (COZAAR) 50 mg ORAL BID - sodium chloride 0.9 % (flush) 3-5 mL (BD POSIFLUSH) 3-5 mL INTRAVENOUS q 12 H - acetaminophen 650 mg tab(s) (TYLENOL) 650 mg ORAL q 6 H PRN - diclofenac 1 % 2 g topical gel (VOLTAREN) 2 g TOPICAL BID PRN - polyethylene glycol 3350 17 g packet (MIRALAX, GLYCOLAX) 17 g ORAL DAILY - sulfamethoxazole-trimethoprim 800-160 mg 2 tablet (BACTRIM DS,SEPTRA DS) 2 tablet ORAL q 12 H PHYSICAL EXAM: Vital signs: BP 125/76 Pulse 74 Temp 37 ?C (98.6 ?F) (Oral) Resp 18 Ht 184.2 cm (6' 0.5 ) Wt 103.7 kg (228 lb 9.9 oz) SpO2 95% BMI 30.58 kg/m? Temp (24hrs), Av.1 ?C (98.8 ?F), Min:37 ?C (98.6 ?F), Max:37.3 ?C (99.1 ?F) General: alert, oriented, NAD Lungs: bilaterally clear to auscultation Heart: regular rate and rhythm Abdomen: soft, non tender, non distended, BS+ : no CVAT Extremities: no swollen joints Skin: no rash IV sites - wnl Lab data: reviewed Recent Labs 05/07/21 0601 05/06/21 0556 05/05/21 0605 WBC 6.24 6.08 10.98 HB 15.6 14.5 14.2 PLT 160 149* 128* NA -- 135* 132* K -- 4.6 4.1 CO2 -- 24 24 BUN -- 10 9 CREAT -- 1.05 0.93 Microbiology data: reviewed Imaging data: reviewed Wild Hewitt MD [phone] 05/07/2021 8:24 [id number] NoteHNO ID: [id number] Author: Dominique Boucher DO Service: Hospital Medicine Author Type: Physician Type: Progress Notes Filed: 05/06/2021 11:33 PM Note Text: DEPARTMENT OF HOSPITAL MEDICINE PROGRESS NOTE SERVICE DATE: 05/06/2021 SERVICE TIME: 12:00 PM Hospital Medicine/Primary Attending: Dominique Boucher DO NIGHT AND WEEKEND COVERAGE: [place] COVERAGE: Days: [phone], please page attending physician. Nights: [phone], please page [facility] Night coverage pager [phone]. Subjective INTERVAL HPI: Denies any chest pain, shortness of breath. Had BM today. States he passed small kidney stone yesterday. Noted fever overnight. Current Facility-Administered Medications Medication Dose Route Frequency - NaCl 0.9% iv flush bag 20 mL INTRAVENOUS PRN - atorvastatin 10 mg tab(s) (LIPITOR) 10 mg ORAL DAILY - losartan 50 mg tab(s) (COZAAR) 50 mg ORAL BID - sodium chloride 0.9 % (flush) 3-5 mL (BD POSIFLUSH) 3-5 mL INTRAVENOUS q 12 H - NaCl 0.9% iv infusion 75 mL/hr INTRAVENOUS CONTINUOUS - acetaminophen 650 mg tab(s) (TYLENOL) 650 mg ORAL q 6 H PRN - diclofenac 1 % 2 g topical gel (VOLTAREN) 2 g TOPICAL BID PRN - polyethylene glycol 3350 17 g packet (MIRALAX, GLYCOLAX) 17 g ORAL DAILY - sulfamethoxazole-trimethoprim 800-160 mg 2 tablet (BACTRIM DS,SEPTRA DS) 2 tablet ORAL q 12 H Objective PHYSICAL EXAM: BP 130/78 Pulse 73 Temp (Src) 98.6 (Oral) Resp 20 Ht 6' .5 (1.84m) Wt 228 lb 9.9 oz (103.7kg) SpO2 96% BMI 30.56 kg/(m2). O2 Therapy: Room Air Physical Exam Performed GENERAL: Alert, no distress, cooperative SKIN: Skin color, texture, turgor normal. No rashes or lesions. EYES: PERRLA, EOMI NOSE: Nares normal. Septum midline. OROPHARYNX: Lips, mucosa, and tongue normal. Teeth and gums normal. Oropharynx normal. LUNGS: Lungs clear to auscultation, Good diaphragmatic excursion CARDIAC: Normal S1 and S2; no rubs, murmurs, or gallops ABDOMEN: Abdomen soft, non-tender, BS normal, No masses or organomegaly EXTREMITIES: Extremities normal, no deformities, edema, clubbing or skin discoloration. 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 Complicated UTI (urinary tract infection) POA: Yes Hypertension POA: Yes Sepsis (HCC) POA: Yes Prostatitis POA: Yes Bacteremia due to Gram-negative bacteria POA: Yes Pain of right upper extremity POA: Yes HOSPITAL COURSE: Edmundo Henao is a 65 year old male presented with past medical history of hypertension, coronary artery disease, CABG in 2002, TURP on February 15, 2019, subsequently had gross hematuria March 08 as well as March 24, 2019, history of DVT and PE CT pulmonary angiogram on 03/25/2019 (s/p 3 months of Eliquis and IVC filter which was removed after 3 months), presented to ED with complaint of urinary frequency, fever, chills, rigors, and urinary burning. Active Problems: Sepsis (HCC) Bacteremia due to Gram-negative bacteria Complicated UTI (urinary tract infection) Rule out Prostatitis with history of BPH with obstruction/lower urinary tract symptoms -Noted to have elevated white count of 16.21, elevated heart rate, 90, temperature of 100.8, lactate of 1.8 on admission -Urine cx growing Klebsiella oxytoca -Blood cx is growing Klebsiella oxytoca -Continue IV ceftriaxone, start on gentle IV hydration -Follow up with repeat blood cx -PSA is 13.53 -no intervention per Urology -ID discontinued Ancef and started on oral Bactrim (closely monitor electrolytes) -noted fever overnight. Patient stated he passed small kidney stone yesterday -ID repeating blood cx today -Renal US showing Small nonobstructing calcifications in each kidney, Simple cysts in the LEFT kidney Pain of right upper extremity -Complains of right UE pain and tingling ongoing for 3 months. -Describes pain as shooting and burning and concerned of cervical spine pathology. -He had outpatient EMG which showed carpel tunnel syndrome. -Neurology ordered MRI cervical spine which showed Degenerative changes in the cervical spine most notably at C5-6 where there is disc height loss and endplate hypertrophy causing moderate canal narrowing. ?There is moderate bilateral foraminal narrowing at this level as well. -Neurology recommended outpatient spine clinic -hold gabapentin for now as mild hyponatremia Constipation -ordered Miralax ? Left renal cyst -outpatient follow up with PCP ? Left lower lobe lung nodule -stable since [address] reports -outpatient follow up wi (more content not included)...[id number] NoteHNO ID: [id number] Author: Wild Hewitt MD Service: Infectious Disease Author Type: Physician Type: Progress Notes Filed: 05/07/2021 8:15 AM Note Text: INFECTIOUS DISEASE PROGRESS NOTE Patient Name: Edmundo Henao ASSESSMENT: Klebsiella Oxytoca Bacteremia Complicated UTI (urinary tract infection) - Klebsiella Oxytoca Hypertension Sepsis Prostatitis Hyperlipidemia BPH with obstruction/lower urinary tract symptoms ? PLAN: Continue oral Bactrim DS Check renal ultrasound. May need CT scan of the abdomen and pelvis if more fevers occur F/U Repeat BCx x 2 - ngtd Consider renal US in setting of ongoing fever Noted PSA level, follow up Monitor temps and counts Noted Neurology evaluation Colonoscopy as OP Discussed w patient and Dr Greg Boucher INTERVAL HISTORY: Febrile TMAX 100.7 overnight, c/o night sweats/ hot/ cold spells. Was attempting to pass stone Continues to c/o urinary frequency, no dysuria Otherwise continues to feel improved Leukocytosis resolved Repeat blood cultures 05/03 ngtd MEDICATIONS: reviewed. Current Facility-Administered Medications Medication Dose Route Frequency - NaCl 0.9% iv flush bag 20 mL INTRAVENOUS PRN - atorvastatin 10 mg tab(s) (LIPITOR) 10 mg ORAL DAILY - losartan 50 mg tab(s) (COZAAR) 50 mg ORAL BID - sodium chloride 0.9 % (flush) 3-5 mL (BD POSIFLUSH) 3-5 mL INTRAVENOUS q 12 H - acetaminophen 650 mg tab(s) (TYLENOL) 650 mg ORAL q 6 H PRN - diclofenac 1 % 2 g topical gel (VOLTAREN) 2 g TOPICAL BID PRN - polyethylene glycol 3350 17 g packet (MIRALAX, GLYCOLAX) 17 g ORAL DAILY - sulfamethoxazole-trimethoprim 800-160 mg 2 tablet (BACTRIM DS,SEPTRA DS) 2 tablet ORAL q 12 H PHYSICAL EXAM: Vital signs: BP 125/76 Pulse 74 Temp 37 ?C (98.6 ?F) (Oral) Resp 18 Ht 184.2 cm (6' 0.5 ) Wt 103.7 kg (228 lb 9.9 oz) SpO2 95% BMI 30.58 kg/m? Temp (24hrs), Av.1 ?C (98.8 ?F), Min:37 ?C (98.6 ?F), Max:37.3 ?C (99.1 ?F) General: alert, oriented, NAD Lungs: bilaterally clear to auscultation Heart: regular rate and rhythm Abdomen: soft, non tender, non distended, BS+ : no CVAT Extremities: no swollen joints Skin: no rash IV sites - wnl Lab data: reviewed Recent Labs 05/07/21 0601 05/06/21 0556 05/05/21 0605 WBC 6.24 6.08 10.98 HB 15.6 14.5 14.2 PLT 160 149* 128* NA -- 135* 132* K -- 4.6 4.1 CO2 -- 24 24 BUN -- 10 9 CREAT -- 1.05 0.93 Microbiology data: reviewed Imaging data: reviewed Wild Hewitt MD [phone] 05/06/2021 8:14 [id number] NoteHNO ID: [id number] Author: Dominique Boucher DO Service: Hospital Medicine Author Type: Physician Type: Progress Notes Filed: 05/05/2021 11:31 PM Note Text: DEPARTMENT OF HOSPITAL MEDICINE PROGRESS NOTE SERVICE DATE: 05/05/2021 SERVICE TIME: 12:00 PM Hospital Medicine/Primary Attending: Dominique Boucher DO NIGHT AND WEEKEND COVERAGE: [place] COVERAGE: Days: [phone], please page attending physician. Nights: [phone], please page [facility] Night coverage pager [phone]. Subjective INTERVAL HPI: continues to have abdominal pain. Constipated. Denies any chest pain, shortness of breath. Not feeling well. Complains of right UE pain and tingling ongoing for 3 months. Describes pain as shooting and burning and concerned of cervical spine pathology. He had outpatient EMG which showed carpel tunnel syndrome. He is requesting Neurology consultation. c/o night sweats/ hot/ cold spells Current Facility-Administered Medications Medication Dose Route Frequency - NaCl 0.9% iv flush bag 20 mL INTRAVENOUS PRN - atorvastatin 10 mg tab(s) (LIPITOR) 10 mg ORAL DAILY - losartan 50 mg tab(s) (COZAAR) 50 mg ORAL BID - sodium chloride 0.9 % (flush) 3-5 mL (BD POSIFLUSH) 3-5 mL INTRAVENOUS q 12 H - NaCl 0.9% iv infusion 75 mL/hr INTRAVENOUS CONTINUOUS - acetaminophen 650 mg tab(s) (TYLENOL) 650 mg ORAL q 6 H PRN - diclofenac 1 % 2 g topical gel (VOLTAREN) 2 g TOPICAL BID PRN - polyethylene glycol 3350 17 g packet (MIRALAX, GLYCOLAX) 17 g ORAL DAILY - sulfamethoxazole-trimethoprim 800-160 mg 2 tablet (BACTRIM DS,SEPTRA DS) 2 tablet ORAL q 12 H - calcium carbonate 750 mg chewable tab(s) (TUMS) 750 mg ORAL ONCE Objective PHYSICAL EXAM: BP 135/77 Pulse 72 Temp (Src) 98.4 (Oral) Resp 18 Ht 6' .5 (1.84m) Wt 234 lb 12.6 oz (106.5kg) SpO2 96% BMI 31.39 kg/(m2). O2 Therapy: Room Air Physical Exam Performed GENERAL: Alert, no distress, cooperative SKIN: Skin color, texture, turgor normal. No rashes or lesions. EYES: PERRLA, EOMI NOSE: Nares normal. Septum midline. OROPHARYNX: Lips, mucosa, and tongue normal. Teeth and gums normal. Oropharynx normal. LUNGS: Lungs clear to auscultation, Good diaphragmatic excursion CARDIAC: Normal S1 and S2; no rubs, murmurs, or gallops ABDOMEN: Abdomen soft, non-tender, BS normal, No masses or organomegaly EXTREMITIES: Extremities normal, no deformities, edema, clubbing or skin discoloration. 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 Complicated UTI (urinary tract infection) POA: Yes Hypertension POA: Yes Sepsis (HCC) POA: Yes Prostatitis POA: Yes Bacteremia due to Gram-negative bacteria POA: Yes Pain of right upper extremity POA: Yes HOSPITAL COURSE: Edmundo Henao is a 65 year old male presented with past medical history of hypertension, coronary artery disease, CABG in 2002, TURP on February 15, 2019, subsequently had gross hematuria March 08 as well as March 24, 2019, history of DVT and PE CT pulmonary angiogram on 03/25/2019 (s/p 3 months of Eliquis and IVC filter which was removed after 3 months), presented to ED with complaint of urinary frequency, fever, chills, rigors, and urinary burning. Active Problems: Sepsis (HCC) Bacteremia due to Gram-negative bacteria Complicated UTI (urinary tract infection) Rule out Prostatitis with history of BPH with obstruction/lower urinary tract symptoms -Noted to have elevated white count of 16.21, elevated heart rate, 90, temperature of 100.8, lactate of 1.8 on admission -Urine cx growing Klebsiella oxytoca -Blood cx is growing Klebsiella oxytoca -Continue IV ceftriaxone, start on gentle IV hydration -Follow up with repeat blood cx -PSA is 13.53 -no intervention per Urology -ID discontinued Ancef and started on oral Bactrim (closely monitor electrolytes, Na 132 today) Pain of right upper extremity -Complains of right UE pain and tingling ongoing for 3 months. -Describes pain as shooting and burning and concerned of cervical spine pathology. -He had outpatient EMG which showed carpel tunnel syndrome. -Neurology ordered MRI cervical spine which showed Degenerative changes in the cervical spine most notably at C5-6 where there is disc height loss and endplate hypertrophy causing moderate canal narrowing. ?There is moderate bilateral foraminal narrowing at this level as well. -Neurology recommended outpatient spine clinic Constipation -ordered Miralax ? Left renal cyst -outpatient follow up with PCP ? L (more content not included)...[facility] [id number] NoteHNO ID: [id number] Author: Wild Hewitt MD Service: Infectious Disease Author Type: Physician Type: Progress Notes Filed: 05/05/2021 12:55 PM Note Text: INFECTIOUS DISEASE PROGRESS NOTE Patient Name: Edmundo Henao ASSESSMENT: Klebsiella Oxytoca Bacteremia Complicated UTI (urinary tract infection) - Klebsiella Oxytoca Hypertension Sepsis Prostatitis Hyperlipidemia BPH with obstruction/lower urinary tract symptoms ? PLAN: DC Ancef Start oral Bactrim DS F/U Repeat BCx x 2 - ngtd Consider renal US in setting of ongoing fever Noted PSA level, follow up Monitor temps and counts Noted Neurology evaluation Colonoscopy as OP Discussed w patient and Dr Greg Boucher INTERVAL HISTORY: Febrile TMAX 100 overnight, c/o night sweats/ hot/ cold spells Continues to c/o urinary frequency, no dysuria Otherwise continues to feel improved Leukocytosis resolved Repeat blood cultures 05/03 ngtd MEDICATIONS: reviewed. Current Facility-Administered Medications Medication Dose Route Frequency - NaCl 0.9% iv flush bag 20 mL INTRAVENOUS PRN - atorvastatin 10 mg tab(s) (LIPITOR) 10 mg ORAL DAILY - losartan 50 mg tab(s) (COZAAR) 50 mg ORAL BID - sodium chloride 0.9 % (flush) 3-5 mL (BD POSIFLUSH) 3-5 mL INTRAVENOUS q 12 H - NaCl 0.9% iv infusion 75 mL/hr INTRAVENOUS CONTINUOUS - acetaminophen 650 mg tab(s) (TYLENOL) 650 mg ORAL q 6 H PRN - diclofenac 1 % 2 g topical gel (VOLTAREN) 2 g TOPICAL BID PRN - polyethylene glycol 3350 17 g packet (MIRALAX, GLYCOLAX) 17 g ORAL DAILY - sulfamethoxazole-trimethoprim 800-160 mg 2 tablet (BACTRIM DS,SEPTRA DS) 2 tablet ORAL q 12 H PHYSICAL EXAM: Vital signs: BP 139/78 Pulse 72 Temp 37.3 ?C (99.1 ?F) (Oral) Resp 18 Ht 184.2 cm (6' 0.5 ) Wt 106.5 kg (234 lb 12.6 oz) SpO2 95% BMI 31.41 kg/m? Temp (24hrs), Av.7 ?C (99.8 ?F), Min:37 ?C (98.6 ?F), Max:38.4 ?C (101.1 ?F) General: alert, oriented, NAD Lungs: bilaterally clear to auscultation Heart: regular rate and rhythm Abdomen: soft, non tender, non distended, BS+ : no CVAT Extremities: no swollen joints Skin: no rash IV sites - wnl Lab data: reviewed Recent Labs 05/05/21 0605 05/04/21 0426 05/03/21 0545 WBC 10.98 15.39* 20.82* HB 14.2 13.1 13.3 PLT 128* 120* 120* NA 132* 137 135* K 4.1 3.8 3.7 CO2 24 23 24 BUN 9 13 13 CREAT 0.93 0.97 0.96 AST -- 17 -- ALT -- 15 -- TBILI -- 0.8 -- ALKPHOS -- 98 -- Microbiology data: reviewed Imaging data: reviewed June Chew AERONAUTICAL ENGINEERING PROFESSOR-C [facility] Answering Service: [phone] May 05, 2021 11:53 AM I personally saw and evaluated the patient. I reviewed the AERONAUTICAL ENGINEERING PROFESSOR Hx, exam and MDM and I agree with the AERONAUTICAL ENGINEERING PROFESSOR assessment and plan unless otherwise addended above. Wild Hewitt MD [phone] 05/05/2021 12:55 PMSouthview Medical [id number] NoteHNO ID: [id number] Author: Quoc Spencer MD Service: Neurology General Author Type: Physician Type: Plan of Care Filed: 05/05/2021 7:53 AM Note Text: TELENEUROLOGY CONSULT PROGRESS NOTE Patient seen using [facility]. Recommendations are placed in the chart. Please review. For questions after hours, when teleneurologist is not available, for [place]WAY: Please Page [phone] for the [facility] from 5pm to 8am Please follow normal inpatient acute stroke procedures per routine as needed. SERVICE DATE: 05/05/2021 SERVICE TIME: 7:51 AM Results of MRI C spine reviewed and the recommendations are: ? Degenerative disc disease without cord compression. This should be followed at spine medicine clinic ? PT/OT ? May try neurontin 300mg tid for pain ? FOllow up w neurology clinic after discharge for CTS. Teleneurology will not follow this patient. Please call for additional assistance. SIGNATURE: Quoc Spencer MD PATIENT NAME: Edmundo Henao DATE: May 05, 2021 TIME: 7:51 AM PAGER/CONTACT #:[facility] [id number] NoteHNO ID: [id number] Author: Dominique Boucher DO Service: Hospital Medicine Author Type: Physician Type: Progress Notes Filed: 05/04/2021 3:05 PM Note Text: DEPARTMENT OF HOSPITAL MEDICINE PROGRESS NOTE SERVICE DATE: 05/04/2021 SERVICE TIME: 3:02 PM Hospital Medicine/Primary Attending: Dominique Boucher DO NIGHT AND WEEKEND COVERAGE: [place] COVERAGE: Days: [phone], please page attending physician. Nights: [phone], please page [facility] Centerist Night coverage pager [phone]. Subjective INTERVAL HPI: continues to have abdominal pain. Constipated. Denies any chest pain, shortness of breath. Not feeling well. Complains of right UE pain and tingling ongoing for 3 months. Describes pain as shooting and burning and concerned of cervical spine pathology. He had outpatient EMG which showed carpel tunnel syndrome. He is requesting Neurology consultation. Current Facility-Administered Medications Medication Dose Route Frequency - NaCl 0.9% iv flush bag 20 mL INTRAVENOUS PRN - cefTRIAXone iv piggyback 1 g in dextrose (iso-osmotic) 50 mL (ROCEPHIN) 1 g INTRAVENOUS q 24 H - atorvastatin 10 mg tab(s) (LIPITOR) 10 mg ORAL DAILY - losartan 50 mg tab(s) (COZAAR) 50 mg ORAL BID - sodium chloride 0.9 % (flush) 3-5 mL (BD POSIFLUSH) 3-5 mL INTRAVENOUS q 12 H - NaCl 0.9% iv infusion 75 mL/hr INTRAVENOUS CONTINUOUS - acetaminophen 650 mg tab(s) (TYLENOL) 650 mg ORAL q 6 H PRN - diclofenac 1 % 2 g topical gel (VOLTAREN) 2 g TOPICAL BID PRN - polyethylene glycol 3350 17 g packet (MIRALAX, GLYCOLAX) 17 g ORAL DAILY Objective PHYSICAL EXAM: BP 139/84 Pulse 76 Temp (Src) 98.6 (Oral) Resp 18 Ht 6' .5 (1.84m) Wt 234 lb 12.6 oz (106.5kg) SpO2 95% BMI 31.39 kg/(m2). O2 Therapy: Room Air Physical Exam Performed GENERAL: Alert, no distress, cooperative SKIN: Skin color, texture, turgor normal. No rashes or lesions. EYES: PERRLA, EOMI NOSE: Nares normal. Septum midline. OROPHARYNX: Lips, mucosa, and tongue normal. Teeth and gums normal. Oropharynx normal. LUNGS: Lungs clear to auscultation, Good diaphragmatic excursion CARDIAC: Normal S1 and S2; no rubs, murmurs, or gallops ABDOMEN: Abdomen soft, non-tender, BS normal, No masses or organomegaly EXTREMITIES: Extremities normal, no deformities, edema, clubbing or skin discoloration. 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 Complicated UTI (urinary tract infection) POA: Yes Hypertension POA: Yes Sepsis (HCC) POA: Yes Prostatitis POA: Yes Bacteremia due to Gram-negative bacteria POA: Yes Pain of right upper extremity POA: Yes HOSPITAL COURSE: Edmundo Henao is a 65 year old male presented with past medical history of hypertension, coronary artery disease, CABG in 2002, TURP on February 15, 2019, subsequently had gross hematuria March 08 as well as March 24, 2019, history of DVT and PE CT pulmonary angiogram on 03/25/2019 (s/p 3 months of Eliquis and IVC filter which was removed after 3 months), presented to ED with complaint of urinary frequency, fever, chills, rigors, and urinary burning. Active Problems: Sepsis (HCC) Bacteremia due to Gram-negative bacteria Complicated UTI (urinary tract infection) Rule out Prostatitis with history of BPH with obstruction/lower urinary tract symptoms -Noted to have elevated white count of 16.21, elevated heart rate, 90, temperature of 100.8, lactate of 1.8 -Urine cx growing Klebsiella oxytoca -Blood cx is growing Klebsiella oxytoca -Continue IV ceftriaxone, start on gentle IV hydration -Follow up with repeat blood cx -PSA is 13.53 -no intervention per Urology -ID following Pain of right upper extremity -Complains of right UE pain and tingling ongoing for 3 months. -Describes pain as shooting and burning and concerned of cervical spine pathology. -He had outpatient EMG which showed carpel tunnel syndrome. -Neurology ordered MRI cervical spine which showed Degenerative changes in the cervical spine most notably at C5-6 where there is disc height loss and endplate hypertrophy causing moderate canal narrowing. ?There is moderate bilateral foraminal narrowing at this level as well. Constipation -ordered Miralax ? Left renal cyst -outpatient follow up with PCP ? Left lower lobe lung nodule -stable since [address] reports -outpatient follow up with PCP ? Hyperlipidemia -Continue Lipitor ? Hypertension -Continue losartan Medication and Non-Pharmacologic VTE Prophylaxis/Anticoagulants 05/02/ (more content not included)...[facility] [id number] NoteHNO ID: [id number] Author: Wild Hewitt MD Service: Infectious Disease Author Type: Physician Type: Progress Notes Filed: 05/04/2021 9:06 PM Note Text: INFECTIOUS DISEASE PROGRESS NOTE Patient Name: Edmundo Henao Date: 05/04/2021 ASSESSMENT: Klebsiella Oxytoca Bacteremia Complicated UTI (urinary tract infection) - Klebsiella Oxytoca Hypertension Sepsis Prostatitis Hyperlipidemia BPH with obstruction/lower urinary tract symptoms ? PLAN: Discontinue Ceftriaxone Start ancef F/U Repeat BCx x 2 Consider renal US Noted PSA level, follow up Monitor temps and counts Noted Neurology evaluation Colonoscopy as OP INTERVAL HISTORY: Afebrile, feels his mentation is better and overall is feeling improved MRI C-spine today per neuro for evaluation of right arm pain/ weakness Blood and Urine Cultures growing Klebsiella Oxytoca WBC 15.4 (20.8), c/o urinary frequency MEDICATIONS: reviewed. Current Facility-Administered Medications Medication Dose Route Frequency - NaCl 0.9% iv flush bag 20 mL INTRAVENOUS PRN - cefTRIAXone iv piggyback 1 g in dextrose (iso-osmotic) 50 mL (ROCEPHIN) 1 g INTRAVENOUS q 24 H - atorvastatin 10 mg tab(s) (LIPITOR) 10 mg ORAL DAILY - losartan 50 mg tab(s) (COZAAR) 50 mg ORAL BID - sodium chloride 0.9 % (flush) 3-5 mL (BD POSIFLUSH) 3-5 mL INTRAVENOUS q 12 H - NaCl 0.9% iv infusion 75 mL/hr INTRAVENOUS CONTINUOUS - acetaminophen 650 mg tab(s) (TYLENOL) 650 mg ORAL q 6 H PRN - diclofenac 1 % 2 g topical gel (VOLTAREN) 2 g TOPICAL BID PRN - polyethylene glycol 3350 17 g packet (MIRALAX, GLYCOLAX) 17 g ORAL DAILY PHYSICAL EXAM: Vital signs: BP 123/74 Pulse 73 Temp 37 ?C (98.6 ?F) (Oral) Resp 20 Ht 184.2 cm (6' 0.5 ) Wt 106.5 kg (234 lb 12.6 oz) SpO2 95% BMI 31.41 kg/m? Temp (24hrs), Av.7 ?C (99.8 ?F), Min:37 ?C (98.6 ?F), Max:38.4 ?C (101.1 ?F) General: alert, oriented, NAD Lungs: bilaterally clear to auscultation Heart: regular rate and rhythm Abdomen: soft, non tender, non distended, BS+ : no CVAT Extremities: no swollen joints Skin: no rash IV sites - wnl Lab data: reviewed Recent Labs 05/04/21 0426 05/03/21 0545 05/02/21 1106 05/02/21 1105 WBC 15.39* 20.82* -- 16.21* HB 13.1 13.3 -- 16.0 PLT 120* 120* -- 141* NA 137 135* 136 -- K 3.8 3.7 3.8 -- CO2 23 24 25 -- BUN 13 13 10 -- CREAT 0.97 0.96 0.89 -- AST 17 -- 23 -- ALT 15 -- 28 -- TBILI 0.8 -- 1.0 -- ALKPHOS 98 -- 110 -- LACT -- -- -- 1.8 Microbiology data: reviewed Imaging data: reviewed June Chew NP-C [facility] Answering Service: [phone] May 04, 2021 12:25 PM I personally saw and evaluated the patient. I reviewed the AERONAUTICAL ENGINEERING PROFESSOR Hx, exam and MDM and I agree with the AERONAUTICAL ENGINEERING PROFESSOR assessment and plan unless otherwise addended above. Wild Hewitt MD [phone] 05/04/2021 2:05 PMSouthview Medical [id number] NoteHNO ID: [id number] Author: Dominique Boucher DO Service: Hospital Medicine Author Type: Physician Type: Progress Notes Filed: 05/03/2021 10:36 PM Note Text: DEPARTMENT OF HOSPITAL MEDICINE PROGRESS NOTE SERVICE DATE: 05/03/2021 SERVICE TIME: 1:30 PM Hospital Medicine/Primary Attending: Dominique Boucher DO NIGHT AND WEEKEND COVERAGE: [place] COVERAGE: : [phone], please page attending physician. Nights: [phone], please page [facility] Night coverage pager [phone]. Subjective INTERVAL HPI: continues to have abdominal pain. Constipated. Denies any chest pain, shortness of breath. Not feeling well. Complains of right UE pain and tingling ongoing for 3 months. Describes pain as shooting and burning and concerned of cervical spine pathology. He had outpatient EMG which showed carpel tunnel syndrome. He is requesting Neurology consultation. Current Facility-Administered Medications Medication Dose Route Frequency - NaCl 0.9% iv flush bag 20 mL INTRAVENOUS PRN - cefTRIAXone iv piggyback 1 g in dextrose (iso-osmotic) 50 mL (ROCEPHIN) 1 g INTRAVENOUS q 24 H - atorvastatin 10 mg tab(s) (LIPITOR) 10 mg ORAL DAILY - losartan 50 mg tab(s) (COZAAR) 50 mg ORAL BID - sodium chloride 0.9 % (flush) 3-5 mL (BD POSIFLUSH) 3-5 mL INTRAVENOUS q 12 H - NaCl 0.9% iv infusion 75 mL/hr INTRAVENOUS CONTINUOUS - acetaminophen 650 mg tab(s) (TYLENOL) 650 mg ORAL q 6 H PRN - diclofenac 1 % 2 g topical gel (VOLTAREN) 2 g TOPICAL BID PRN Objective PHYSICAL EXAM: BP 131/58 Pulse 81 Temp (Src) 99.5 (Oral) Resp 16 Ht 6' .5 (1.84m) Wt 234 lb 12.6 oz (106.5kg) SpO2 95% BMI 31.39 kg/(m2). O2 Therapy: Room Air Physical Exam Performed GENERAL: Alert, no distress, cooperative SKIN: Skin color, texture, turgor normal. No rashes or lesions. EYES: PERRLA, EOMI NOSE: Nares normal. Septum midline. OROPHARYNX: Lips, mucosa, and tongue normal. Teeth and gums normal. Oropharynx normal. LUNGS: Lungs clear to auscultation, Good diaphragmatic excursion CARDIAC: Normal S1 and S2; no rubs, murmurs, or gallops ABDOMEN: Abdomen soft, non-tender, BS normal, No masses or organomegaly EXTREMITIES: Extremities normal, no deformities, edema, clubbing or skin discoloration. 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 Complicated UTI (urinary tract infection) POA: Yes Hypertension POA: Yes Sepsis (HCC) POA: Yes Prostatitis POA: Yes Bacteremia due to Gram-negative bacteria POA: Yes Pain of right upper extremity POA: Yes HOSPITAL COURSE: Edmundo Henao is a 65 year old male presented with past medical history of hypertension, coronary artery disease, CABG in 2002, TURP on February 15, 2019, subsequently had gross hematuria March 08 as well as March 24, 2019, history of DVT and PE CT pulmonary angiogram on 03/25/2019 (s/p 3 months of Eliquis and IVC filter which was removed after 3 months), presented to ED with complaint of urinary frequency, fever, chills, rigors, and urinary burning. Active Problems: Sepsis (HCC) Bacteremia due to Gram-negative bacteria Complicated UTI (urinary tract infection) Rule out Prostatitis with history of BPH with obstruction/lower urinary tract symptoms -Noted to have elevated white count of 16.21, elevated heart rate, 90, temperature of 100.8, lactate of 1.8 -Continue IV ceftriaxone, start on gentle IV hydration -Follow-up with urine culture and blood cultures -ID and urology consulted Pain of right upper extremity -Complains of right UE pain and tingling ongoing for 3 months. -Describes pain as shooting and burning and concerned of cervical spine pathology. -He had outpatient EMG which showed carpel tunnel syndrome. -He is requesting Neurology consultation. ? Left renal cyst -outpatient follow up with PCP ? Left lower lobe lung nodule -stable since [address] reports -outpatient follow up with PCP ? Hyperlipidemia -Continue Lipitor ? Hypertension -Continue losartan Medication and Non-Pharmacologic VTE Prophylaxis/Anticoagulants 05/02/21 1530 pneumatic compression stockings (wy,pr) VTE Prophylaxis: VTE prophylaxis appropriate Disposition: To be determined Plan of care discussed with Provider, RN, Patient Plan communicated to: Family at bedside SIGNATURE: Dominique Boucher DO PATIENT NAME: Edmundo Henao DATE: May 03, 2021 TIME: 10:29 PMSouthview Medical [id number] History of Past illness Narrative* Problem Noted Date Resolved Date Sepsis 05/02/2021 07/18/2021 documented as of this encounter (statuses as of 09/06/2021) [address]27-2022 History of Past illness Narrative* Problem Noted Date Resolved Date Sepsis 05/02/2021 07/18/2021 documented as of this encounter (statuses as of 10/15/2021) [address]22 History of Past illness Narrative* Problem Noted Date Resolved Date Sepsis 05/02/2021 07/18/2021 documented as of this encounter (statuses as of 10/22/2021) [address]22 History of Past illness Narrative* Problem Noted Date Resolved Date Sepsis 05/02/2021 07/18/2021 documented as of this encounter (statuses as of 01/05/2022) [address]27-2022 History of Past illness Narrative* Problem Noted Date Resolved Date Sepsis 05/02/2021 07/18/2021 documented as of this encounter (statuses as of 01/06/2022) [address]27-2022 History of Past illness Narrative* Problem Noted Date Resolved Date Sepsis 05/02/2021 07/18/2021 documented as of this encounter (statuses as of 07/15/2022) [address]27-2022 History of Past illness Narrative* Problem Noted Date Resolved Date Sepsis 05/02/2021 07/18/2021 documented as of this encounter (statuses as of 07/11/2022) [address]27-2022 History of Past illness Narrative* Problem Noted Date Diagnosed Date Resolved Date Sepsis 05/02/2021 07/18/2021 documented as of this encounter (statuses as of 04/02/2023) [address]22 History of Present illness Narrative* Robin Glynn APRN.LOOM MECHANIC - 05/02/2021 10:01 AM EDT Subjective HPI HPI Edmundo Henao is a 65 year old male who presents today for CC of burning with urination, fever chillls, weakness. This started todasy. Having perineal pain. Hx of complicated prostate surgery. -patient not known to [facility], no recent labs. .Patient presents with: Urinary Problem: frequency, chills, nausea, testicular pain x last night PAST MEDICAL HISTORY Diagnosis Date ASCVD (arteriosclerotic cardiovascular disease) Chest pain HTN (hypertension) PAST SURGICAL HISTORY Procedure Laterality Date ACHILLES TENDON SURGERY HX Right Dr. Romero, tendon release ARTHROSCOPY KNEE MEDIAL RELEASE Right Dr. Zhou BACK SURGERY HX 1986 laminectomy COLONOSCOPY FLX DX W/COLLJ SPEC WHEN PFRMD 07/2000 Colonoscopy COLONOSCOPY W/BIOPSY SINGLE/MULTIPLE 08/26/11 CORONARY ARTERY BYP W/VEIN & ARTERY GRAFT 5 VEIN 2001 HERNIA REPAIR HX Left x 2 LASER ENUCLEATION PROSTATE W/MORCELLATION ALLERGIES Ampicillin, Niacin, and Statins [Pobvhqd-Wxg-Qmh Reductase Inhibitors] MEDICATIONS OTC NUTRITIONAL SUPPLEMENT Trina Vati daily atorvastatin (LIPITOR) 10 mg tablet Take 10 mg by mouth once daily. losartan (COZAAR) 50 mg tablet Take 50 mg by mouth once daily. carvedilol (COREG) 3.125 mg tablet Take 3.125 mg by mouth twice daily with meals. simvastatin (ZOCOR) 5 mg tablet Take 5 mg by mouth daily at bedtime. oxyCODONE-acetaminophen (PERCOCET) 5-325 mg tablet Take 1 tablet by mouth every 4 hours as needed for Pain. VIT E ACETATE/VIT BCOMP&C/ZINC (ZINC WITH VITAMINS ORAL) Take 1 capsule by mouth once daily. Flaxseed Oil 1,000 mg cap Take 1,000 mg by mouth once daily. ASPIRIN 325 MG TAB Take one(1) tablet daily by mouth FAMILY HISTORY Problem Relation Age of Onset Heart Father Diabetes Father other (hypercholes) Mother Social History Tobacco Use Smoking status: Never Smoker Smokeless tobacco: Never Used Substance Use Topics Alcohol use: No Comment: almost never Drug use: No Review of Systems Constitutional: Negative for chills, fever and weight loss. Respiratory: Negative for cough, shortness of breath and wheezing. Cardiovascular: Negative for chest pain and palpitations. Gastrointestinal: Negative for abdominal pain, blood in stool, constipation, diarrhea, heartburn, melena, nausea and vomiting. Genitourinary: Positive for dysuria, frequency and urgency. Negative for flank pain and hematuria. Objective Blood pressure 148/90, pulse 94, temperature (!) 38.6 C (101.5 F), resp. rate 20, weight 107.1 kg (236 lb 3.2 oz), SpO2 95 %. Physical Exam Constitutional: General: He is not in acute distress. Appearance: Normal appearance. He is toxic-appearing (slightly). Cardiovascular: Rate and Rhythm: Normal rate and regular rhythm. Heart sounds: Normal heart sounds. Pulmonary: Effort: Pulmonary effort is normal. Abdominal: General: Bowel sounds are normal. Palpations: Abdomen is soft. Tenderness: There is no abdominal tenderness. Skin: General: Skin is warm and dry. ASSESSMENT/PLAN: 1. Urinary frequency - ICD9: 788.41, ICD10: R35.0 (primary diagnosis) acute - UA positive for lilliana esterase and hematuria - UA DIP, URINE (POC) - URINE CULTURE 2. Complicated UTI (urinary tract infection) - ICD9: 599.0, ICD10: N39.0 acute - d/t slightly toxic appearance and hx of complicated prostate surgery I will refer to ER Unclear what hospital patient will go to at this time. Robin Glynn APRN.LOOM MECHANIC [facility] Work Phone: Evaluation + Plan note Future Appointments Appointment Date:02/08/2022 08:00:00 AM Scheduled Provider:PRAVEENA FOSTER DO Location:[facility] Appointment Type:[facility] Future Scheduled Tests Radiology* XR Spine Thoracic 2 Views 10/28/20 * XR Spine Cervical AP/LAT 10/28/20 [facility] Evaluation + Plan note Future Appointments Appointment Date:08/16/2022 09:00:00 AM Scheduled Provider:PRAVEENA FOSTER DO Location:[facility] Appointment Type: OV [facility] Evaluation + Plan note Future Appointments Appointment Date:09/12/2022 09:00:00 AM Scheduled Provider: Location:[facility] Appointment Type:VL [facility] - Venous US/Doppler One Leg (for Appointment Date:02/21/2023 08:00:00 AM Scheduled Provider:PRAVEENA FOSTER DO Location:[facility] Appointment Type: OV [facility] Evaluation + Plan note Future Appointments Appointment Date:02/21/2023 08:00:00 AM Scheduled Provider:PRAVEENA FOSTER DO Location:[facility] Appointment Type:PC OV [facility] Evaluation note* Diagnosis Urinary frequency- Primary Complicated UTI (urinary tract infection) Urinary tract infection, site not specified documented in this encounter [facility] note* Diagnosis Encounter for screening for malignant neoplasm of colon- Primary Special screening for malignant neoplasms, colon documented in this encounter [facility] note* Diagnosis Encounter for screening colonoscopy- Primary Special screening for malignant neoplasms, colon Screening for colon cancer Special screening for malignant neoplasms, colon documented in this encounter [facility] note* Diagnosis Umbilical hernia without obstruction and without gangrene- Primary documented in this encounter [facility] note* Diagnosis Acute cough- Primary Suspected COVID-19 virus infection documented in this encounter [facility] note* Diagnosis Flu-like symptoms- Primary Other general symptoms Influenza A Influenza with other respiratory manifestations documented in this encounter [facility] risk assessmentmedical contraindicationW[facility] Work Phone: Hospital course Narrative No data available for this section [facility] Hospital Discharge instructions No data available for this section [facility] Progress note No data available for this section [facility] Reason for referral (narrative)* Outpatient Procedure (Routine) - Closed Specialty Diagnoses / Procedures Referred By Radha t Referred To Contact [facility] Diagnoses Screening for colon cancer Procedures COLONOSCOPY SCREENING COLONOSCOPY FLX DX W/COLLJ SPEC WHEN PFRMD Abril Hassan PA-C [address] [place] [address] [facility] [address] [place] [id number] Referral ID Status Reason Start Date Expiration Date V isits Requested Visits Authorized [id number] Closed Auto-Generate d Referral 09/01/2021 09/01/2022 1 1 [facility] Outpatient Procedure (Routine) - Closed Specialty Diagnoses / Procedures Referred By Radha olmstead Referred To Contact [facility] Diagnoses Screening for colon cancer Procedures COLONOSCOPY SCREENING COLONOSCOPY FLX DX W/COLLJ SPEC WHEN PFRMD Abril Hassan PA-C [address] 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 Advance Directive(s) 05/02/2021 11:28 AM Medications Administered Section Inactive Administered Medications - up to 3 most recent administrations Medication Order MAR Action Action Date Dose Rate Site diphenhydrAMINE 12.5-50 mg injection (BENADRYL) 12.5-50 mg, INTRAVENOUS, DIRECTED, Starting on Dana 10/14/21 at 1030, Until Dana 10/14/21 at 1429, DOSING DIRECTED BY PHYSICIAN FOR PROCEDURAL SEDATION ONLY, Intraprocedure Given 10/14/2021 10:16 AM EDT 50 mg fentaNYL 50 mcg/mL 25-100 mcg injection (SUBLIMAZE) 25-100 mcg, INTRAVENOUS, DIRECTED, Starting on Dana 10/14/21 at 1030, Until Dana 10/14/21 at 1429, DOSING DIRECTED BY PHYSICIAN FOR PROCEDURAL SEDATION ONLY, Intraprocedure Given 10/14/2021 10:22 AM EDT 50 mcg Health Concerns Infection Onset Date Last Indicated Resolved Time COVID-19 Rule-Out 01/05/2022 01/05/2022 Additional Source Comments (unrecognized sect ion and content) No Status Records FoundNo Status Records FoundNo Status Records FoundNo Status Records Found INFORMATION SOURCE (unrecogn ized section and content) DATE CREATED AUTHOR AUTHOR'S ORGANIZ ATION 05/12/2021 [facility] DATE CREATED AUTHOR AUTHOR'S ORGANIZ ATION 07/16/2022 [facility] DATE CREATED AUTHOR AUTHOR'S ORGANIZ ATION 09/13/2022 [facility] (ID) Source Comments (unrecognize d section and content) In the event this informatio n is protected by the Federal Confidentiality of Alcohol and Drug Abuse Patient Records regulations: The Federal rules restrict any use of the information to criminally investigate or prosecute any alcohol or drug abuse patient.[facility] Hospital[facility] the event this information is protected by the Federal Confidentiality of Alcohol and Drug Abuse Patient Records regulations: The Federal rules restrict any use of the information to criminally investigate or prosecute any alcohol or drug abuse patient.[facility] Hospital[facility] the event this information is protected by the Federal Confidentiality of Alcohol and Drug Abuse Patient Records regulations: The Federal rules restrict any use of the information to criminally investigate or prosecute any alcohol or drug abuse patient.[facility] Hospital[facility] the event this information is protected by the Federal Confidentiality of Alcohol and Drug Abuse Patient Records regulations: The Federal rules restrict any use of the information to criminally investigate or prosecute any alcohol or drug abuse patient.[facility] HospitalIn the event this information is protected by the Federal Confidentiality of Alcohol and Drug Abuse Patient Records regulations: The Federal rules restrict any use of the information to criminally investigate or prosecute any alcohol or drug abuse patient.[facility] Hospital[facility] the event this information is protected by the Federal Confidentiality of Alcohol and Drug Abuse Patient Records regulations: The Federal rules restrict any use of the information to criminally investigate or prosecute any alcohol or drug abuse patient.[facility] HospitalIn the event this information is protected by the Federal Confidentiality of Alcohol and Drug Abuse Patient Records regulations: The Federal rules restrict any use of the information to criminally investigate or prosecute any alcohol or drug abuse patient.[facility] HospitalIn the event this information is protected by the Federal Confidentiality of Alcohol and Drug Abuse Patient Records regulations: The Federal rules restrict any use of the information to criminally investigate or prosecute any alcohol or drug abuse patient.[facility] HospitalIn the event this information is protected by the Federal Confidentiality of Alcohol and Drug Abuse Patient Records regulations: The Federal rules restrict any use of the information to criminally investigate or prosecute any alcohol or drug abuse patient.[facility] Reason for Visit (unrecogniz ed section and content) Reason Comments Consult colonoscopy, possibl e hernia Reason Comments Follow Up Colonoscopy and woul d like umbilical hernia checked Reason Comments Cough Cough, sinus and sor e throat Reason Comments Results Reason Comments Patient Update Surg 07/05/2022 - n venkata mignon barrow area is bleeding bright red blood x 2 days size of a quarter. Reason Comments Post Op Drainage Reason Comments Fever Fever, head and ches t congestion x 2 days Care Teams (unrecognized sec tion and content) [employer] Consultant Relationship Specialty Start Date End Date Praveena Foster [facility] [place] [address] PCP - General Family Practice 05/02/21 [employer] Consultant Relationship Specialty Start Date End Date Praveena Foster [address] [place] [id number] PCP - General Family Practice 05/02/21 [employer] Consultant Relationship Specialty Start Date End Date Praveena Foster [address] [place] [id number] PCP - General Family Practice 05/02/21 [employer] Consultant Relationship Specialty Start Date End Date Praveena Foster, [address] [place] [address] PCP - General Family Medicine 05/02/21 [employer] Consultant Relationship Specialty Start Date End Date KristinPraveena mendoza [address] [place] [address] PCP - General Family Medicine 05/02/21 [employer] Consultant Relationship Specialty Start Date End Date Praveena Foster DO [address] [place] [address] PCP - General Family Medicine 05/02/21 Care Team (unrecognized sect ion and content) Care Team Personnel Name: PRAVEENA FOSTER DO Position: P4 Physician - Primary Care Med Service: Active Provider Member Role: Primary Care Physician Address: Address: [address] [place] [address] Care Team Related Persons Name: LEEANN HENAO Address: Home [address] [place], [place] [id number] [place] [address] Care Team Personnel Name: PRAVEENA FOSTER DO Position: P4 Physician - Primary Care Med Service: Active Provider Member Role: Primary Care Physician Address: Address: [address] [place] [address] Care Team Related Persons Name: JULIANO LEEANN Address: [place] [address] [place] [phone] [place] [address] FOR RECORDS PERTAINING TO PATIENTS WHO ARE OR HAVE BEEN ENROLLED IN A CHEMICAL DEPENDENCY/SUBSTANCEABUSE PROGRAM, SOME INFORMATION MAY BE OMITTED. This clinical summary was aggregated from multiple sources. Caution should be exercised in using it in the provision of clinical care. This summary normalizes information from multiple sources, and as a consequence, information in this document may materially change the coding, format and clinical context of patient data. In addition, data may be omitted in some cases. CLINICAL DECISIONS SHOULD BE BASED ON THE PRIMARY CLINICAL RECORDS. [employer] provides no warranty or guarantee of the accuracy or completeness of information in this document.
[2023-04-20 08:06] LABS: AST(SGOT) 25 U/L (15-37); Alanine Aminotransfer ALT/SGPT 47 U/L (16-61); Albumin, Serum 3.4 g/dL (3.2-5.0); Alkaline Phosphatase 107 U/L (45-117); Cholesterol 164 mg/dL (200); Globulin 3.3 g/dL (2.2-4.2); High Density Lipoprotein 31 mg/dL; Protein, Total 6.7 g/dL (6.4-8.2); Triglycerides 189 mg/dL; Very Low Density Lipoprotein 38 mg/dL (5-40)
== END | disposition home or self-care (01) ==
LOC: LAB 07:18
PROVIDERS: PCP Preventive Medicine Occupational Medicine; Referring Provider Nurse Practitioner Gerontology; Visit Provider Nurse Practitioner Gerontology
DX: E78.00 Pure hypercholesterolemia, unspecified (principal)
CPT/HCPCS: 36415; 80061; 80076

== ENCOUNTER 2023-05-16 08:08 | Outpatient (CLI) | payer MEDICARE, OTHER, SELFPAY ==
[2023-05-16 14:09] LABS: Anion Gap 5 (5-15); BUN 14 mg/dL (7-18); BUN/Creat Ratio 15.1 RATIO (10-20); Calcium,Total 8.5 mg/dL (8.5-10.1); Chloride 109 mmol/L (98-107); Creatinine, Serum 0.93 mg/dL (0.70-1.30); EST Glomerular Filtration Rate 86 mL/min (>60); Est Glom Filt Rate - Afr Amer 104 mL/min (>60); Glucose 199 mg/dL (74-106); Potassium 3.7 mmol/L (3.5-5.1); Sodium Level 140 mmol/L (136-145)
[2023-05-16 17:15] LABS: Hemoglobin A1c 5.8 % (3.8-5.6)
== END 2023-05-16 23:59 | disposition home or self-care (01) ==
LOC: LAB 08:09
PROVIDERS: PCP Preventive Medicine Occupational Medicine; Referring Provider Internal Medicine Cardiovascular Disease; Visit Provider Internal Medicine Cardiovascular Disease
DX: E78.5 Hyperlipidemia, unspecified (principal); Z95.1 Presence of aortocoronary bypass graft
CPT/HCPCS: 36415; 80048; 83036

== ENCOUNTER → 2023-11-21 | Outpatient (CLI) | payer MEDICARE, OTHER, SELFPAY ==
[2023-11-21 09:47] LABS: PSA,Total- Diagnostic 2.02 ng/mL (0.0-4.0)
== END | disposition home or self-care (01) ==
LOC: LAB 08:03
PROVIDERS: PCP Preventive Medicine Occupational Medicine; Referring Provider Urology; Visit Provider Urology
DX: R97.20 Elevated prostate specific antigen [PSA] (principal)
CPT/HCPCS: 36415; 84153

== ENCOUNTER → 2023-11-23 | Outpatient (CLI) | payer MEDICARE, OTHER, SELFPAY ==
[2023-11-23 07:58] LABS: AST(SGOT) 26 U/L (15-37); Alanine Aminotransfer ALT/SGPT 38 U/L (16-61); Albumin, Serum 3.6 g/dL (3.2-5.0); Alkaline Phosphatase 105 U/L (45-117); Bilirubin, Direct 0.15 mg/dL (0.00-0.30); Cholesterol 232 mg/dL (200); Globulin 3.2 g/dL (2.2-4.2); High Density Lipoprotein 34 mg/dL; Protein, Total 6.8 g/dL (6.4-8.2); Triglycerides 208 mg/dL; Very Low Density Lipoprotein 42 mg/dL (5-40)
== END | disposition home or self-care (01) ==
PROVIDERS: PCP Preventive Medicine Occupational Medicine; Referring Provider Nurse Practitioner Gerontology; Visit Provider Nurse Practitioner Gerontology
DX: E78.00 Pure hypercholesterolemia, unspecified (principal)
CPT/HCPCS: 36415; 80061; 80076

== ENCOUNTER → 2024-02-26 | Outpatient (CLI) | payer MEDICARE, OTHER, SELFPAY ==
[2024-02-26 09:32] LABS: AST(SGOT) 25 U/L (15-37); Alanine Aminotransfer ALT/SGPT 35 U/L (16-61); Albumin, Serum 3.5 g/dL (3.2-5.0); Alkaline Phosphatase 106 U/L (45-117); Cholesterol 111 mg/dL (200); Globulin 3.2 g/dL (2.2-4.2); High Density Lipoprotein 39 mg/dL; Protein, Total 6.7 g/dL (6.4-8.2); Triglycerides 193 mg/dL; Very Low Density Lipoprotein 39 mg/dL (5-40)
== END | disposition home or self-care (01) ==
LOC: LAB 08:12
PROVIDERS: PCP Preventive Medicine Occupational Medicine; Referring Provider Nurse Practitioner Gerontology; Visit Provider Nurse Practitioner Gerontology
DX: E78.00 Pure hypercholesterolemia, unspecified (principal)
CPT/HCPCS: 36415; 80061; 80076

== ENCOUNTER → 2024-05-01 | Outpatient (CLI) | payer MEDICARE, OTHER, SELFPAY ==
[2024-05-01 20:45] LABS: Hemoglobin A1c 5.7 % (<=5.6)
== END | disposition home or self-care (01) ==
LOC: LAB 16:23
PROVIDERS: PCP Preventive Medicine Occupational Medicine; Referring Provider Nurse Practitioner Family; Visit Provider Nurse Practitioner Family
DX: E11.9 Type 2 diabetes mellitus without complications (principal)
CPT/HCPCS: 36415; 83036

== ENCOUNTER → 2024-08-13 | Outpatient (CLI) | payer MEDICARE, OTHER, SELFPAY ==
[2024-08-13 09:21] LABS: Cholesterol 104 mg/dL (<=200); Low Density Lipoprotein Calc. 34 mg/dL; Triglycerides 180 mg/dL; Very Low Density Lipoprotein 36 mg/dL (5-40); cholesterol:hdl ratio screen 3.07
[2024-08-13 09:31] LABS: AST(SGOT) 30 U/L (<=37); Alanine Aminotransfer ALT/SGPT 35 U/L (<=46); Albumin, Serum 4.0 g/dL (3.4-4.8); Alkaline Phosphatase 99 U/L (40-129); Bilirubin, Direct 0.15 mg/dL (0.00-0.30); Globulin 2.6 g/dL (2.2-4.2)
--- NOTE | 2024-08-13 10:30 | MRI_ITS ---
PROCEDURE: BRAIN W/WO CONTRAST 08/13/2024 REASON FOR EXAM: OPTIC NERVE ATROPHY R/O MASS/ANEURYSM TECHNIQUE: BRAIN W/WO CONTRAST Multiplanar and multisequence images were obtained. CONTRAST: Clariscan VOLUME: 19 mL COMPARISON: none FINDINGS: Reduced girth of the intra-orbital segment left optic nerve compared to the right side with prominent roosevelt-optic CSF. Normal appearance of the right optic nerve. Normal MRI appearance of rest of the orbital structures, both globes, optic chiasm, optic tracts and optic radiations. No acute or hyperacute infarcts. No intracerebral or extra-axial hematomas. No obvious enhancing masses. Bilateral cerebral periventricular and subcortical foci and patches of high T2/FLAIR WI signal. Normal MRI signal of the cerebellar hemispheres and rest of the brain stem. Prominent ventricular system, cortical sulci and extra-axial CSF spaces. No shift of midline structures. Normal MRI appearance of the petrous temporal bones cerebellopontine angles with no definite masses. Scanned paranasal sinuses show maxillary sinusitis Patent MRA flow signals of the petrous, cavernous and supraclinoid segments of the internal carotid arteries with no tight stenotic lesions or aneurysmal dilatation. Patent MRA signal of the anterior and middle cerebral arteries (with no tight stenotic lesions or aneurysmal dilatation. Bi-hemispheric anterior cerebral artery (variant) Patent MRA signal of the V4 segments of the vertebral arteries and basilar artery with no tight stenotic lesions or aneurysmal dilatation. Patent posterior cerebral arteries. No tight stenotic lesions or aneurysmal dilatation. MRI/Brain W/WO Contrast IMPRESSION: Mild left optic nerve atrophy. No acute infarcts. No intracerebral or extra-axial hematomas. No enhancing mass es. Bilateral cerebral microvascular ischemic changes. Age appropriate brain involutional changes. Reading Location[facility] [address]
--- NOTE | 2024-08-13 10:31 | MRI_ITS ---
PROCEDURE: MRA HEAD ONLY WITHOUT CONTRAST 08/13/2024 REASON FOR EXAM: R/O MASS ANEURYSM COMPARISON: None. TECHNIQUE: MRA HEAD ONLY WITHOUT CONTRAST Multiplanar multisequential imaging was performed without IV contrast administration. FINDINGS: The carotid siphons, anterior cerebral, anterior communicating, middle cerebral, and posterior cerebral arteries are patent. No visualized aneurysm (MRA is insensitive for aneurysms less than or equal to 3 mm). The intracranial vertebrobasilar system is patent. MRI/MRA Head ONLY without Contrast IMPRESSION: No acute intracranial arterial abnormality. Reading Location: [place] [address]
== END | disposition home or self-care (01) ==
LOC: MRI 09:56
PROVIDERS: Nurse Practitioner Family; Referring Provider Ophthalmology; Visit Provider Ophthalmology
DX: H47.20 Unspecified optic atrophy (principal); E78.00 Pure hypercholesterolemia, unspecified
CPT/HCPCS: 36415; 70544; 70553; 80061; 80076; A9575

== ENCOUNTER → 2024-08-30 | Outpatient (CLI) | payer MEDICARE, OTHER, SELFPAY ==
--- NOTE | 2024-08-30 07:49 | MRI_ITS ---
PROCEDURE: SPINE LUMBAR W/WO CONTRAST 08/30/2024 REASON FOR EXAM: PAIN Low back and buttock pain for 9 months off and on. Paresthesias. Prior L5/S1 laminectomy 30 years ago. TECHNIQUE: SPINE LUMBAR W/WO CONTRAST Multiplanar and multisequence images were obtained without and with intravenous gadolinium-based contrast administration. CONTRAST: Clariscan VOLUME: 19 mL COMPARISON: August 14, 2024, January 19, 2024 FINDINGS: Vertebrae: Hemangioma is shown within the T12 vertebral body, right pedicle and proximal transverse process. Hemangioma is also present at the posterior L2 vertebral body. Minimal anterior wedging of the L1 vertebral body is likely clinically insignificant. Alignment: Normal. No spondylolisthesis. Conus Medullaris: Terminates at L1/2. Normal signal. T12-L1: Normal. L1-2: Normal. L2-3: Mild, diffuse disc bulge. Mild thickening of ligamentum flavum. Mild facet hypertrophy. L3-4: Mild, diffuse disc mild facet hypertrophy. Mild thickening of ligamentum flavum. L4-5: Mild, diffuse disc bulge. Mild thickening of ligamentum flavum. Mild facet hypertrophy. L5-S1: Mild, diffuse disc bulge and mild loss of disc height. Small posterior annular defect.. Moderate facet hypertrophy, khqqh-psdlkod-kylq-left. No central stenosis. Bilateral exit foraminal narrowing. Correlate with L5 radiculopathy. Sacrum: No acute abnormality Postcontrast images: No abnormal enhancing mass. Partially imaged parapelvic cysts and exophytic left renal cyst MRI/Spine Lumbar W/WO Contrast IMPRESSION: Mild degenerative changes greatest at L5/S1. Reading Location: [id number]
== END | disposition home or self-care (01) ==
LOC: MRI 07:47
PROVIDERS: Referring Provider Student in an Organized Health Care Education/Training Program; Visit Provider Student in an Organized Health Care Education/Training Program
DX: M51.360 Other intervertebral disc degeneration, lumbar region with discogenic back pain only (principal); Z98.890 Other specified postprocedural states
CPT/HCPCS: 72158; A9575

== ENCOUNTER → 2024-11-18 | Outpatient (CLI) | payer MEDICARE, OTHER, SELFPAY ==
[2024-11-18 10:18] LABS: PSA,Total - Annual Screen 1.78 ng/mL (0.02-4.00)
== END | disposition home or self-care (01) ==
LOC: LAB 08:08
PROVIDERS: Referring Provider Nurse Practitioner; Visit Provider Nurse Practitioner
DX: Z12.5 Encounter for screening for malignant neoplasm of prostate (principal)
CPT/HCPCS: 36415; 84153; G0103

== ENCOUNTER → 2024-11-22 | Outpatient (CLI) | payer MEDICARE, OTHER, SELFPAY ==
--- OUTSIDE RECORDS SUMMARY | 2024-11-22 06:18 | XMS RPT_ITS | CCD ---
Author Organization [facility] Care Team Providers Care Wrecker Operator Name Role Phone KDDAVID RODRIGUEZ Unavailable Unavailable SAIRA PUENTES (TOM) Unavailable Unavailable Praveena Martinez Primary Care Provider [phone] Babak Lema Y Unavailable Unavailable Torey Harumi Y Unavailable Unavailable Janina Alexander Y Unavailable Janina Alexander Unavailable Eryn Daly RN Unavailable Unavailable Dr. Praveena Martinez Primary Care Provider Dr. Praveena Martinez Referring Provider [phone] Dre SKILLS INSTRUCTOR, SKILLS INSTRUCTORMichaelC Yakelin Attending Provider TOM Jolly Attending Provider PRAVEENA MARTINEZ DO Primary Care [phone] Praveena Martinez Primary Care Provider [phone] Praveena Martinez DO Primary Care Provider [phone] Dr. Praveena Martinez Primary Care Provider Dr. Praveena Martinez Referring Provider [phone] Dr. Mukesh Antony Attending Provider [phone] Dr. Mukesh Antony Referring Provider [phone] Dr. Mukesh Antony Other Provider TOM Jolly Attending Provider [phone] HITESH BLAIR Referring Unavailable PRAVEENA MARTINEZ Primary Care Unavailable PRAVEENA MARTINEZ Primary Care Unavailable GIOVANY LAL Attending Unavailable GIOVANY LAL Referring Unavailable PRAVEENA MARTINEZ Primary Care Unavailable ABRIL LOUISE Referring Unavailable GIOVANY LAL Attending Unavailable MICHELLE, PRAVEENA F Primary Care Unavailable ULICES GREER Admitting Unavailable ULICES GREER Attending Unavailable MICHELLE, PRAVEENA F Primary Care Unavailable ABRIL LOUISE Attending Unavailable MICHELLE, PRAVEENA F Primary Care Unavailable MICHELLE, PRAVEENA F Referring Unavailable MICHELLE, PRAVEENA F Primary Care Unavailable ULICES GREER Attending Unavailable MICHELLE, PRAVEENA F Primary Care Unavailable JORDIN AGRCIA Referring Unavailable MICHELLE, PRAVEENA F Primary Care Unavailable DEVONTE CABEZAS MD Attending Unavailable MICHELLE DO, PRAVEENA Primary Care Unavailable DEVONTE CABEZAS MD Attending Unavailable MICHELLE , PRAVEENA Primary Care Unavailable DEVONTE CABEZAS MD Attending Unavailable MICHELLE DO, PRAVEENA Primary Care Unavailable Michelle DO, Praveena Elder Primary Care Provider [phone] Dr. Praveena Martinez Primary Care Provider Dr. Praveena Martinez Referring Provider [phone] Dr. Mukesh Antony Attending Provider [phone] Praveena Martinez DO Primary Care Provider [phone] MIRANDA BALDERRAMA Attending Unavailabl e MICHELLE COOK, PRAVEENA Primary Care Unavailable MICHELLE COOK, PRAVEENA Primary Care Unavailable ANSON HOLLEY Attending Un available MICHELLE COOK, PRAVEENA Primary Care Unavailable MEGHA FLETCHER, ANSON Syed Attending Un available Dr. Praveena Martinez DO Primary Care Provider [phone] Yakelin Tineo Attending Provider [phone] Yakelin Tineo Referring Provider [phone] Referred, Self Attending Provider Unavailable Referred, Self Referring Provider Unavailable Dr. Guille Huynh MD Attending Provider [phone] Dr. Praveena Martinez DO Referring Provider Brii Horvath Attending Provider [phone] Brii Horvath Referring Provider [phone] Dr. Praveena Martinez DO Primary Care Provider [phone] Dr. Steven Simpson MD Attending Provider Dr. Steven Simpson MD Referring Provider Felipe COOK, Dr. Yue Ham Primary Care Provider Brii Horvath Other Provider Dr. Yue Wang DO Referring Provider [phone] Isabel Sheridan Attending Provider [phone] Mukesh Antony MD Attending Provider Isabel Sheridan Referring Provider [phone] Jin AARON, Dr. Castillo Attending Provider Yue Wang Referring Unavailable Jonathan Abdi Attending Unavailable Yue Wang Primary Care Unavailable Yue Wang Primary Care Unavailable Isabel Quinn Attending Unavailable Yue Wang Referring Unavailable Michelle, Praveena Primary Care Unavailable Michelle, Praveena Referring Unavailable Brii Singh H Attending Unavailable Isabel Quinn Attending Unavailable Isabel Quinn Referring Unavailable Yue Wang Primary Care Unavailable Referred, Self Attending Unavailable Referred, Self Referring Unavailable Michelle, Praveena Primary Care Unavailable [place], Faith Attending Unavailable [place], Faith Referring Unavailable Yue Wang Primary Care Unavailable Steven Simpson Attending Unavailable Steven Simpson Referring Unavailable Roof, Brii H Consulting Unavailable FelipeYue erickson Primary Care Unavailable Michelle, Praveena Primary Care Unavailable Jorje Tyson Attending Unavailable Jorje Tyson Referring Unavailable Dre SKILLS INSTRUCTOR, Yakelin Referring Unavailable Michelle, Praveena Primary Care Unavailable Dre SKILLS INSTRUCTOR, Yakelin Attending Unavailable Dre SKILLS INSTRUCTOR, Yakelin Referring Unavailable Michelle, Praveena Primary Care Unavailable Dre SKILLS INSTRUCTOR, Yakelin Attending Unavailable Michelle, Praveena Primary Care Unavailable Francisco Brii H Attending Unavailable Francisco Brii H Referring Unavailable Michelle, Praveena Primary Care Unavailable Guille Huynh Attending Unavailable Mukesh Antony Attending Unavailable Yue Wang Primary Care Unavailable Allergies Allergy Classification Reported Allergen(s) Allergy Type Date of Onset Reaction(s) Facility (20 sources) ampicillin; Translations: [AMPICILLIN] Drug Allergy 11-17-19 06 Rash [facility] Other [place] [facility] (13 sources) Hmg-Coa Reductase Inhibitors (Statins); Translations: [[id number]-[id number]-DML REDUCTASE INHIBITORS] Propensity to adverse reactions to drug (disorder) 11-17-19 06 Other: See Comments [facility] Repository (13 sources) niacin; Translations: [NIACIN] Drug Allergy 11-17-19 06 Intolerance, Rash [facility] Repository (20 sources) Amoxicillin; Translations: [amoxicillin] Drug Allergy 01-18-20 14 Eruption of skin (disorder) [facility] Work Phone: (5 sources) ezetimibe Drug Allergy 05-21-19 16 severe constipation [facility] Work Phone: [phone] (5 sources) Hmg-Coa Reductase Inhibitors (Statins) drug allergy 01-23-20 14 Myalgias [facility] Work Phone: [phone] (12 sources) rosuvastatin; Translations: [rosuvastatin] Drug Allergy 01-18-20 14 Vision changes, sore eyes, partial vision loss in left eye [facility] Work Phone: (6 sources) GEMFIBRIZOL drug allergy 03-12-19 16 vision changes [facility] Work Phone: (13 sources) Ciprofloxacin Drug Allergy 06-02-19 22 Pain in joints [facility] (13 sources) ezetimibe Drug Allergy 06-02-19 22 Severe Constipation [facility] (13 sources) rosuvastatin Drug Allergy 06-02-19 22 Vision changes/eye pain/knee pain [facility] (14 sources) Gemfibrozil; Translations: [gemfibrozil] Drug Allergy 09-02-19 22 Other, visual disturbances [facility] Comment on above: VISION CHANGES (1 source) Ciprofloxacin Drug Allergy 09-21-19 [facility]ository (1 source) ezetimibe Drug Allergy 09-21-19 [facility] (1 source) Gemfibrozil Drug Allergy 09-21-19 [facility] (1 source) rosuvastatin Drug Allergy 09-21-19 [facility] Repository Medications Current Medications Medication Drug Class(es) Dates Sig (Normalized) Sig (Original) Albuterol (20 sources) beta2-Adrenergic Agonist Start: 02-12-2024 End: 04-12-2024 take 2 doses by inhalation every four hours as needed for wheezing Ventolin HFA MDI (90 mcg/inh) inhalation aerosol Dose : 180 mcg = 2 inh, Inhalation, q4h, PRN as needed for wheezing, # 18 gram(s), 1 Refill(s), Pharmacy: [facility]/pharmacy #[id number], URI with cough and congestion, 185, cm, 02/12/24 13:19:00 EST, Height, kg, 02/12/24 13:19:00 EST, Dosing Weight Start Date: 02/12/24 Stop Date: 04/12/24 Status: Ordered Quantity: 18.0 Unit: g Repeat number: 2 Indication: Acute upper respiratory infection, unspecified Start: 01-05-2022 take 2 puff(s) by in halation every six hours as needed albuterol HFA (PROAIR HFA) 90 mcg/actuation inhaler Inhale 2 Puffs as instructed every 6 hours as needed. 1 Each 01/05/2022 Active Start: 07-24-2020 End: 09-22-2020 take 1 puff(s) by inhalation every four hours as needed for wheezing Ventolin HFA MDI (90 mcg/inh) inhalation aerosol 1 puff(s), Inhalation, q4h, PRN as needed for wheezing, # 1 EA, 1 Refill(s), Pharmacy: [facility]/pharmacy #[id number], Wheezing on expiration, 184, cm, 07/24/20 9:12:00 EDT, Height, kg, 07/24/20 9:12:00 EDT, Dosing Weight Start Date: 07/24/20 Stop Date: 09/22/20 Status: Ordered Start: 03-08-2019 End: 10-08-2019 Albuterol Sulfate 1 PUFF inh aler Discontinued 1 NMA INHALATION EVERY 4 HOURS NEEDED as needed for Wheezing March 08, 2019 1:00am October 08, 2019 8:34am Start: 03-08-2019 End: 10-08-2019 take 1 puff(s) by inhalation every four hours as needed Albuterol Sulfate Discontinued 1 PUFF INHALATION EVERY 4 HOURS NEEDED March 08, 2019 1:00am October 08, 2019 8:34am Comment on above: Inhale 2 Puffs as in structed every 6 hours as needed. Ascorbic Acid (1 source) Vitamin C Start: 4 Vitamin C qDay, 0 Refill(s) Start Date: 02/21/23 Status: Ordered benzonatate 100 mg oral capsule (3 sources) Non-narcotic Antitussive Start: 4 take 2 capsules by mouth every eight hours as needed benzonatate (TESSALON PERLE) 100 mg capsule Take 2 capsules by mouth three times a day as needed. 30 capsule 0 04/02/2023 Active Start: 01-05-2022 take 1 capsule by mo ut every eight hours as needed benzonatate (TESSALON PERLES) 100 mg capsule Take 1 capsule by mouth three times daily as needed for cough. 12 capsule 0 01/05/2022 Active Comment on above: Take 1 capsule by mo uth three times daily as needed for cough. Take 2 capsules by m outh three times a day as needed. cyclobenzaprine hydrochloride 5 mg oral tablet (1 source) Muscle Relaxant Start: 01-19-20 End: 01-26-20 cyclobenzaprine 5 mg oral tablet Dose : 5 mg = 1 tab(s), Oral, TID, X 7 day(s), # 21 tab(s), 0 Refill(s), 01/26/24 9:48:00 AM EST, Pharmacy: [facility]/pharmacy #[id number], Lower back pain, 185.4, cm, 01/19/24 9:02:00 EST, Height, kg, 01/19/24 9:02:00 EST, Dosing Weight Start Date: 01/19/24 Stop Date: 01/26/24 Status: Ordered Evolocumab (Repatha Sureclick) 140 mg/mL pen injector (5 sources) Start: 08-06-19 Evolocumab (Repatha Sureclick) 140 mg/mL pen injector Active 140 mg SC every 2 weeks 2 August 05, 2024 9:03am finasteride 5 mg oral tablet (20 sources) 5-alpha Reductase Inhibitor Start: 06-02-19 take 1 tablet by mouth once daily Finasteride 5 mg tablet Active 5 mg PO DAILY June 01, 2021 12:00am Comment on above: Take 5 mg by mouth o nce daily. 12 hr guaiFENesin 600 mg extended release oral tablet (1 source) Start: 04-02-19 take 2 tablets by mouth twice daily guaiFENesin (MUCINEX) 600 mg 12 hr tablet Take 2 tablets by mouth two times a day. 24 tablet 0 04/02/2023 Active Start: 04-02-2023 take 2 tablets by [facility] twice daily guaiFENesin (MUCINEX) 600 mg 12 hr tablet Take 2 tablets by mouth two times a day. 24 tablet 0 04/02/2023 Active Comment on above: Take 2 tablets by [facility] two times a day. ibuprofen 200 mg oral tablet (1 source) Nonsteroidal Anti-inflammatory Drug Start: 02-22-19 ibuprofen 200 mg oral tablet Dose : 400 mg = 2 tab(s), Oral, q6hr, PRN pain or fever, 0 Refill(s) Start Date: 02/23/24 Status: Ordered Repeat number: 1 oseltamivir 75 mg oral capsule (1 source) Neuraminidase Inhibitor Start: 04-02-19 End: 04-07-19 take 1 capsule by mouth twice daily oseltamivir (TAMIFLU) 75 mg capsule Take 1 capsule by mouth two times a day for 5 days. 10 capsule 0 04/02/2023 04/07/2023 Active Comment on above: Take 1 capsule by [facility] two times a day for 5 days. polyethylene glycol 3350 014013 mg / potassium chloride 2970 mg / sodium bicarbonate 6740 mg / sodium chloride 5860 mg / sodium sulfate 22753 mg powder for oral solution (1 source) Osmotic Laxative Start: 09-07-19 End: 09-07-19 peg 3350-Electrolytes (GOLYTELY) 236-22.74-6.74 -5.86 gram suspension Take 4,000 mL by mouth one time only for 1 dose. 1 Each 0 09/06/2021 09/06/2021 Active Comment on above: Take 4,000 mL by [facility] one time only for 1 dose. predniSONE 10 mg oral tablet (2 sources) Start: 01-06-20 End: 01-09-20 take 4 tablets by mouth once daily predniSONE (DELTASONE) 10 mg tablet Take 4 tablets by mouth once daily for 3 days. 12 tablet 0 01/05/2022 01/08/2022 Active Comment on above: Take 4 tablets by [facility] once daily for 3 days. VIT E ACETATE/VIT BCOMP&C/ZINC (ZINC WITH VITAMINS ORAL) (11 sources) take 1 capsule by mouth once daily VIT E ACETATE/VIT BCOMP&C/ZINC (ZINC WITH VITAMINS ORAL) Take 1 capsule by mouth once daily. Active take 1 capsule by mouth once troy ly VIT E ACETATE/VIT BCOMP&C/ZINC (ZINC WITH VITAMINS ORAL) Take 1 capsule by mouth once daily. 0 Active Comment on above: Take 1 capsule by [facility] once daily. Zinc (2 sources) Start: 02-21-2023 take 1 mg by mouth once daily Zinc mg =, Oral, qDay, 0 Refill(s) Start Date: 02/21/23 Status: Ordered Repeat number: 1 Start: 02-21-2023 take 1 mg by mouth once daily Zinc mg =, Oral, qDay, 0 Refill(s) Start Date: 02/21/23 Status: Ordered Completed/Discontinued Medications Medication Drug Class(es) Dates Sig (Normalized) Sig (Original) acetaminophen 325 mg oral capsule (13 sources) Start: 11-10-2020 End: 06-01-2021 take 1 capsule by mouth once as needed Acetaminophen (Tylenol) 325 mg capsule Discontinued 325 mg PO ONCE as needed November 10, 2020 12:00am June 01, 2021 8:57am acetaminophen 325 mg / HYDROcodone bitartrate 5 mg oral tablet (13 sources) Opioid Agonist Start: 02-15-2019 End: 02-20-2019 Hydrocodone-Acetami nophen 1 EACH tablet Discontinued 1 NMA PO EVERY 4 HOURS NEEDED as needed for Pain Score 14 5 0 February 15, 2019 February 19, 2019 1:00am February 20, 2019 1:08am Benign neoplasm of prostate Start: 02-15-2019 End: 02-20-2019 Hydrocodone-Acetaminophen Di scontinued 1 EACH PO EVERY 4 HOURS NEEDED 14 5 February 15, 2019 February 20, 2019 1:08am acetaminophen 325 mg / oxyCODONE hydrochloride 5 mg oral tablet (14 sources) Opioid Agonist Start: 12-04-2018 End: 12-16-2018 Oxycodone-Acetaminophen 1 TABLET tablet Discontinued 1 {tbl} PO EVERY 6 HOURS NEEDED as needed for Pain 20 5 0 December 04, 2018 December 08, 2018 12:00am December 16, 2018 1:09am Acromioclavicular joint separation, type 3 Acute pneumothorax Dislocation of finger Other pneumothorax Unspecified dislocation of unspecified finger, initial encounter Start: 12-04-2018 End: 12-16-2018 take 1 tablet by mouth every six hours as needed Oxycodone-Acetaminophen Discontinued 1 TABLET PO EVERY 6 HOURS NEEDED 25 06December 04, 2018 December 16, 2018 1:09am Start: 03-18-2014 take 1 tablet by terri th every four hours as needed oxyCODONE-acetaminophen (PERCOCET) 5-325 mg tablet Take 1 tablet by mouth every 4 hours as needed for Pain. 24 tablet 0 03/18/2014 Active Comment on above: Take 1 tablet by terri th every 4 hours as needed for Pain. 1 ml alirocumab 75 mg/ml auto-injector (6 sources) PCSK9 Inhibitor Start: 03-21-19 End: 05-02-19 Alirocumab (Praluent Pen) 75 mg/mL pen injector Discontinued 75 mg SC every 2 weeks 3 04 02March 21, 2024 1:00am May 01, 2024 3:31pm amLODIPine 5 mg oral tablet (20 sources) Dihydropyridine Calcium Channel Iqra Start: 05-08-19 End: 05-15-19 take 1 tablet by mouth once daily Amlodipine 5 mg tablet Discontinued 5 mg PO DAILY 90 May 26, 2022 3:47pm May 04, 2023 2:49pm Comment on above: Take 1 tablet by terri th once daily. apixaban 2.5 mg oral tablet (20 sources) Factor Xa Inhibitor Start: 04-09-19 End: 10-08-19 take 1 tablet by mouth twice daily Apixaban (Eliquis) 2.5 mg tablet Discontinued 2.5 mg PO TWICE A DAY 60 6 April 09, 2019 1:00am October 08, 2019 8:33am Start: 03-29-2019 End: 04-04-2019 take 2 tablets by mouth twice daily Apixaban (Eliquis) 5 mg tablet Discontinued 10 mg PO TWICE A DAY March 29, 2019 1:00am April 04, 2019 11:54am blood thinner aspirin 81 mg delayed release oral tablet (20 sources) Platelet Aggregation Inhibitor, Nonsteroidal Anti-inflammatory Drug Start: 12-04-2018 End: 02-15-2019 take 1 tablet by mouth once daily Aspirin 81 MG tablet,delayed release (DR/EC) Discontinued 81 mg PO DAILY December 04, 2018 12:00am February 15, 2019 9:55am Start: 03-09-2017 End: 04-10-2018 take 1 tablet by mouth once daily Aspirin (Adult Low Dose Aspirin) 81 mg tablet,delayed release (DR/EC) Discontinued 81 mg PO .Does not take QD March 09, 2017 1:00am April 10, 2018 4:27pm Start: 05-17-2016 take 1 tablet by terri once daily, then take 1 tablet by mouth once daily ASPIRIN EC 81 MG TBEC One tablet by mouth daily (pt does not take one every day) ASPIRIN [id number] Mukesh Antony MD Start: 12-19-2008 End: 04-22-2014 take 1 tablet by mouth once daily ASPIRIN 325 MG TABS One tablet by mouth daily ASPIRIN [id number] Mukesh Antony MD take 1 capsule by mo [facility] once daily aspirin 81 mg cap Take 81 mg by mouth once daily. Takes periodically. Does Not take everyday. Active Comment on above: Take one(1) tablet d aily by mouth Take 81 mg by mouth once daily. Takes periodically. Does Not take everyday. atorvastatin 10 mg oral tablet (20 sources) HMG-CoA Reductase Inhibitor Start: End: take 1 tablet by mouth once daily Atorvastatin 10 mg tablet Discontinued 10 mg PO DAILY 90 3 May 26, 2022 3:47pm May 04, 2023 2:49pm Start: 05-04-2020 End: 05-12-2020 take 5 mg by mouth every other day Atorvastatin 10 mg tablet Discontinued 5 mg PO every other day 45 3 May 04, 2020 1:59pm May 12, 2020 3:09pm Start: 05-04-2020 End: 05-12-2020 take 5 mg by mouth every other day Atorvastatin Discontinued 5 MG PO every other day 45 May 04, 2020 1:59pm May 12, 2020 3:09pm Start: 06-08-2018 End: 05-04-2020 take 1 tablet by mouth at bedtime Atorvastatin 10 mg tablet Discontinued 10 mg PO AT BEDTIME 90 3 March 01, 2019 9:59am May 04, 2020 2:00pm Start: 05-17-2016 End: 09-22-2017 take 1 tablet by mouth once daily Atorvastatin 10 mg tablet Discontinued 10 mg PO daily 90 3 May 30, 2017 5:21pm September 22, 2017 8:52am Comment on above: Take 10 mg by mouth once daily. Calcium Carbonate / Vitamin D (10 sources) Start: 01-17-2014 take 1 tablet by mouth once daily CALCIUM + D 600-200 MG-UNIT TABS One tablet by mouth daily CALCIUM CARBONATE-VITAMIN D Jacqui Khan RN Start: 01-17-2014 End: 04-22-2014 take 1 tablet by mouth once daily CALCIUM + D 600-200 MG-UNIT TABS One tablet by mouth daily CALCIUM CARBONATE-VITAMIN D Mukesh Antony MD carvedilol 3.125 mg oral tablet (11 sources) alpha-Adrenergic Iqra, beta-Adrenergic Iqra Start: 04-22-2014 End: 03-12-2015 take 1 tablet by mouth twice daily COREG 3.125 MG TABS One tablet by mouth twice daily CARVEDILOL [id number] Mukesh Antony MD Comment on above: Take 3.125 mg by terri th twice daily with meals. Chelation Therapy (13 sources) Start: 03-08-2019 End: 04-04-2019 Chelation Therapy Discontinued 1 EACH IV Q21D March 08, 2019 4:43pm April 04, 2019 11:55am Start: 03-08-2019 End: 04-04-2019 Chelation Therapy Discontinu ed 1 NMA IV Q21D March 08, 2019 1:00am April 04, 2019 11:55am health maintenance Start: 03-08-2019 End: 04-04-2019 Chelation Therapy Discontinu ed 1 NMA IV Q21D March 08, 2019 1:00am April 04, 2019 11:55am Start: 03-08-2019 End: 04-04-2019 Chelation Therapy Discontinu ed 1 EACH IV Q21D March 08, 2019 1:00am April 04, 2019 11:55am ciprofloxacin 500 mg oral tablet (10 sources) Quinolone Antimicrobial Start: 01-17-2014 End: 01-22-2014 take 1 tablet by mouth twice daily CIPRO 500 MG TABS One tablet by mouth twice daily CIPROFLOXACIN HCL [id number] Jacqui Khan RN clobetasol propionate 0.5 mg/ml topical cream (10 sources) Corticosteroid Start: 01-17-2014 End: 01-22-2014 CLOBETASOL PROPIONATE 0.05 % CREA Apply topically as directed CLOBETASOL PROPIONATE [id number] Jacqui Khan RN docusate sodium 100 mg oral capsule (13 sources) Start: 03-08-2019 End: 10-08-2019 take 1 capsule by mouth once daily as needed for constipation Docusate Sodium 100 MG capsule Discontinued 100 mg PO DAILY NEEDED as needed for Constipation March 08, 2019 1:00am October 08, 2019 8:34am dutasteride 0.5 mg oral capsule (10 sources) 5-alpha Reductase Inhibitor Start: 01-22-2014 End: 04-22-2014 take 1 tablet by mouth once daily AVODART 0.5 MG CAPS One tablet by mouth daily DUTASTERIDE [id number] Mukesh Antony MD 1 ml evolocumab 140 mg/ml auto-injector (20 sources) PCSK9 Inhibitor Start: 05-01-2024 End: 08-05-2024 Evolocumab (Repatha Sureclick) 140 mg/mL pen injector Discontinued 140 mg SC every 2 weeks May 01, 2024 12:00am August 05, 2024 9:04am Start: 11-23-2023 End: 03-21-2024 Evolocumab (Repatha Sureclic k) 140 mg/mL pen injector Discontinued 140 mg SC every 2 weeks 03 19January 03, 2024 5:12pm March 21, 2024 9:52am ezetimibe 10 mg oral tablet (10 sources) Dietary Cholesterol Absorption Inhibitor Start: 03-05-2015 End: 05-21-2015 take 1 tablet by mouth once daily ZETIA 10 MG TABS One tablet by mouth daily EZETIMIBE [id number] Mukesh Antony MD Flaxseed extract (10 sources) Non-Standardized Food Allergenic Extract, Non-Standardized Plant Allergenic Extract Start: 01-22-2014 take 1 tablet by mouth once daily FLAX SEED OIL CAPS One tablet by mouth daily FLAXSEED (LINSEED) CAPS [id number] Mukesh Antony MD Start: 01-22-2014 End: 04-22-2014 take 1 tablet by mouth once daily FLAX SEED OIL CAPS One tablet by mouth daily FLAXSEED (LINSEED) CAPS [id number] Mukesh Antony MD hydroCHLOROthiazide 25 mg oral tablet (20 sources) Thiazide Diuretic Start: 12-16-2020 End: 06-01-2021 take 1 tablet by mouth once daily Hydrochlorothiazide 25 mg tablet Discontinued 25 mg PO DAILY 30 January 07, 2021 3:09pm June 01, 2021 8:59am linseed oil 1000 mg oral capsule (1 source) take 1 capsule by mouth once daily Flaxseed Oil 1,000 mg cap Take 1,000 mg by mouth once daily. 0 Active Comment on above: Take 1,000 mg by terri th once daily. losartan potassium 25 mg oral tablet (20 sources) Angiotensin 2 Receptor Iqra Start: 06-14-2021 End: 05-14-2024 take 1 tablet by mouth once daily Losartan 25 mg tablet Discontinued 0 .ROUTE .COMPLEX 90 February 03, 2023 10:44am May 04, 2023 2:49pm 25 MG ORALLY DAILY Start: 08-17-2020 End: 06-01-2021 take 1 tablet by mouth twice daily Losartan 50 mg tablet Discontinued 50 mg PO TWICE A DAY 180 August 17, 2020 5:16pm June 01, 2021 9:00am this is a dose increase Start: 03-09-2017 End: 08-17-2020 take 1 tablet by mouth once daily Losartan 50 mg tablet Discontinued 50 mg PO daily 90 November 13, 2018 7:23am October 08, 2019 9:16am Start: 12-01-2016 take 1 tablet by terri th once daily LOSARTAN POTASSIUM 50 MG TABS One tablet by mouth daily LOSARTAN POTASSIUM [id number] Mukesh Antony MD Comment on above: Take 50 mg by mouth once daily. Take 25 mg by mouth once daily. 24 hr metoprolol succinate 25 mg extended release oral tablet (20 sources) beta-Adrenergic Iqra Start: 03-12-2015 End: 05-17-2016 take 1 tablet by mouth once daily TOPROL XL 25 MG [id number] One tablet by mouth daily METOPROLOL SUCCINATE [id number] Mukesh Antony MD Start: 01-17-2014 End: 01-22-2014 take 1 tablet by mouth twice daily METOPROLOL TARTRATE 25 MG TABS One tablet by mouth twice daily METOPROLOL TARTRATE [id number] Jacqui Khan RN naproxen sodium 220 mg oral capsule (13 sources) Nonsteroidal Anti-inflammatory Drug Start: 11-10-2020 End: 06-01-2021 take 1 capsule by mouth twice daily as needed Naproxen Sodium (Aleve) 220 mg capsule Discontinued 220 mg PO TWICE A DAY as needed November 10, 2020 12:00am June 01, 2021 9:01am OMEGA-3 FATTY ACIDS CPDR (10 sources) Start: 01-17-2014 take 1 tablet by mouth once daily OMEGA 3 CPDR One tablet by mouth daily OMEGA-3 FATTY ACIDS CPDR [id number] Jacqui Khan RN Start: 01-17-2014 End: 01-22-2014 take 1 tablet by mouth once daily OMEGA 3 CPDR One tablet by mouth daily OMEGA-3 FATTY ACIDS CPDR [id number] Mukesh Antony MD OTC NUTRITIONAL SUPPLEMENT (1 source) OTC NUTRITIONAL SUPPLEMENT Trina Vati daily 0 Active Comment on above: Trina Vati daily 24 hr oxybutynin chloride 10 mg extended release oral tablet (10 sources) Cholinergic Muscarinic Antagonist Start: 04-23-19 End: 11-11-19 15 take 1 tablet by mouth three times daily DITROPAN XL 10 MG [id number] One tablet by mouth three times daily OXYBUTYNIN CHLORIDE [id number] Mukesh Antony MD oxyCODONE hydrochloride 5 mg oral tablet (3 sources) Opioid Agonist Start: 07-06-19 take 1 tablet by mouth every six hours as needed for pain oxyCODONE IR (ROXICODONE) 5 mg immediate release tablet Indications: Umbilical hernia without obstruction and without gangrene Take 1 tablet by mouth every 6 hours as needed for pain. 10 tablet 0 07/05/2022 Active Comment on above: Take 1 tablet by terri th every 6 hours as needed for pain. phenazopyridine hydrochloride 100 mg oral tablet (10 sources) Start: 04-23-19 End: 11-11-19 PYRIDIUM 100 MG TABS take as directed per urologist from [facility] PHENAZOPYRIDINE HCL [id number] Mukesh Antony MD pravastatin sodium 10 mg oral tablet (20 sources) HMG-CoA Reductase Inhibitor Start: 09-23-19 18 End: 06-09-19 19 take 1 tablet by mouth once daily Pravastatin 10 mg tablet Discontinued 10 mg PO daily 30 June 06, 2018 4:36pm June 08, 2018 9:24am simvastatin 10 mg oral tablet (20 sources) HMG-CoA Reductase Inhibitor Start: 04-23-19 End: 05-18-19 17 take 1 tablet by mouth once daily SIMVASTATIN 10 MG TABS One tablet by mouth daily SIMVASTATIN [id number] Mukesh Antony MD take 1 tablet by terri th once daily at bedtime simvastatin (ZOCOR) 5 mg tablet Take 5 m g by mouth daily at bedtime. 0 Active Comment on above: Take 5 mg by mouth d aily at bedtime. tamsulosin hydrochloride 0.4 mg oral capsule (10 sources) alpha-Adrenergic Iqra Start: 4 End: 5 take 1 tablet by mouth once daily TAMSULOSIN HCL 0.4 MG CAPS One tablet by mouth daily TAMSULOSIN HCL [id number] Jacqui Khan RN Turmeric extract (13 sources) Start: End: Turmeric Discontinued MG PO May 12, 2020 3:08pm June 01, 2021 9:01am Start: 05-12-2020 End: 06-01-2021 Turmeric 400 mg capsule Disc ontinued mg PO May 12, 2020 12:00am June 01, 2021 9:01am Start: 05-12-2020 End: 06-01-2021 Turmeric Discontinued MG PO May 12, 2020 12:00am June 01, 2021 9:01am ubidecarenone 100 mg oral capsule (13 sources) Start: 05-12-2020 End: 11-10-2020 Coenzyme Q10 (Coq-10) 100 mg capsule Discontinued 100 mg PO DAILY May 12, 2020 12:00am November 10, 2020 4:11pm Problems Active Problems Problem Classification Problem Date Documented Da te Episodic/Chronic Abdominal hernia (11 sources) Umbilical hernia; Translations: [Umbilical hernia without obstruction or gangrene] Onset: 3 07-24-2020 Episodic Administrative/social admission (20 sources) Administrative reason for encounter; Translations: [Encounter for other administrative examinations] Episodic Allergic reactions (8 sources) Vesicular eczema 07-24-2020 Episodic Asthma (8 sources) Reactive airway disease 07-24-2020 Chronic Cardiac dysrhythmias (20 sources) Palpitations; Translations: [Palpitations] Onset: 4 01-17-2014 Episodic Coronary atherosclerosis and other heart disease (20 sources) Atherosclerotic heart disease of [place] coronary artery without angina pectoris; Translations: [Coronary atherosclerosis of [place] coronary artery] Onset: 4 Resolved: 6 05-15-2015 Chronic Diabetes mellitus without complication (1 source) Type 2 diabetes mellitus without complications; Translations: [Type 2 diabetes mellitus without complications] Onset: 5 Chronic Diabetes mellitus without complication (1 source) Blood glucose abnormal; Translations: [Other abnormal glucose] Episodic Disorders of lipid metabolism (20 sources) Hyperlipidemia; Translations: [Hyperlipidemia, unspecified] Onset: 0 12-21-2009 Chronic Disorders of lipid metabolism (1 source) Pure hypercholesterolemia, unspecified; Translations: [Pure hypercholesterolemia, unspecified] Onset: 0 Esophageal disorders (5 sources) Gastroesophageal reflux disease; Translations: [Gastro-esophageal reflux disease without esophagitis] Onset: 4 01-17-2014 Chronic Essential hypertension (20 sources) Hypertensive disorder; Translations: [Essential (primary) hypertension] Onset: 4 01-17-2014 Chronic Genitourinary symptoms and ill-defined conditions (20 sources) Gross hematuria; Translations: [Increased frequency of urination] Onset: 8 Episodic Hyperplasia of prostate (12 sources) Benign prostatic hyperplasia with lower urinary [...] 04-02-2023 Episodic Joint disorders and dislocations; trauma-related (20 sources) Dislocation of digit of hand; Translations: [Dislocation of distal interphalangeal joint of left ring finger, initial encounter] 12-05-2018 Episodic Malaise and fatigue (2 sources) Other fatigue; Translations: [Fatigue] Onset: 3 06-04-2022 Episodic Other and unspecified benign neoplasm (2 sources) Hemangioma; Translations: [Hemangioma of other sites] 09-20-2024 Episodic Other connective tissue disease (3 sources) Triggering of digit 02-21-2023 Episodic Other connective tissue disease (1 source) Musculoskeletal test abnormal; Translations: [Other symptoms and signs involving the musculoskeletal system] Episodic Other diseases of kidney and ureters (8 sources) Cyst of kidney 05-11-2021 Episodic Other ear and sense organ disorders (8 sources) Hearing loss 07-24-2020 Chronic Other ear and sense organ disorders (8 sources) Tinnitus 07-24-2020 Episodic Other eye disorders (1 source) Unspecified optic atrophy; Translations: [Unspecified optic atrophy] Onset: 5 Chronic Other lower respiratory disease (18 sources) Dyspnea on exertion; Translations: [Other forms of dyspnea] Onset: 7 05-17-2016 Episodic Other lower respiratory disease (8 sources) Nodule of lung 05-11-2021 Episodic Other lower respiratory disease (2 sources) Cough; Translations: [Acute cough] Episodic Other lower respiratory disease (1 source) Cough; Translations: [Acute cough] 01-05-2022 Episodic Other nervous system disorders (20 sources) Carpal tunnel syndrome; Translations: [Carpal tunnel syndrome, bilateral upper limbs] 12-18-2020 Chronic Other nervous system disorders (1 source) Walking disability; Translations: [Difficulty in walking, not elsewhere classified] Chronic Other nervous system disorders (8 sources) Paresthesia 10-28-2020 Episodic Other non-traumatic joint disorders (6 sources) Knee pain 02-08-2022 Episodic Other nutritional; endocrine; and metabolic disorders (5 sources) Body mass index (BMI) 31.0-31.9, adult; Translations: [Body Mass Index 31.0-31.9, adult] Onset: 5 11-17-2015 Chronic Other nutritional; endocrine; and metabolic disorders (5 sources) Body mass index (BMI) 30.0-30.9, adult; Translations: [Body Mass Index 30.0-30.9, adult] Onset: 5 04-22-2014 Chronic Other nutritional; endocrine; and metabolic disorders (10 sources) Obese class I; Translations: [Obesity, unspecified] Onset: 2 05-08-2021 Chronic Other screening for suspected conditions (not mental disorders or infectious disease) (20 sources) Increased glucose level; Translations: [Raised prostate specific antigen] Onset: 2 05-24-2021 Episodic Rula-; endo-; and myocarditis; cardiomyopathy (except that caused by tuberculosis or sexually transmitted disease) (19 sources) Cardiomyopathy in diseases classified elsewhere; Translations: [Cardiomyopathy in other diseases classified elsewhere] Onset: 5 04-22-2014 Chronic Phlebitis; thrombophlebitis and thromboembolism (8 sources) H/O: Deep vein thrombosis 07-24-2020 Episodic Pleurisy; pneumothorax; pulmonary collapse (13 sources) Left pneumothorax; Translations: [Pneumothorax, unspecified] 12-05-2018 Episodic Residual codes; unclassified (1 source) Viral syndrome; Translations: [Other general symptoms and signs] 04-02-2023 Episodic Residual codes; unclassified (8 sources) Other specified postprocedural states; Translations: [History of laminectomy] 08-14-2024 Episodic Spondylosis; intervertebral disc disorders; other back problems (8 sources) Degeneration of lumbar intervertebral disc; Translations: [Degenerative disc disease (DDD) of lumbar region with axial back pain without leg norma] 08-14-2024 Chronic Superficial injury; contusion (13 sources) Contusion of trunk; Translations: [Contusion of abdominal wall, initial encounter] 12-05-2018 Episodic Unclassified (10 sources) Patient encounter status 08-10-2021 Unclassified (1 source) Subacute cough; Translations: [Subacute cough] Onset: 3 Unclassified (1 source) Acute cough; Translations: [Acute cough] Onset: 2 Unclassified (1 source) Unclassified (1 source) M51.360 - Other intervertebral disc degeneration, lumbar region with discogenic back pain only Unclassified (1 source) Other intervertebral disc degeneration, lumbar region with discogenic back pain only; Translations: [Other intervertebral disc degeneration, lumbar region with discogenic back pain only] Onset: 5 Past or Other Problems Problem Classification Problem Date Documented Da te Episodic/Chronic Bacterial infection; unspecified site (20 sources) Infection caused by Klebsiella; Translations: [Other bacterial infections of unspecified site] Onset: 05-03-2021 05-03-2021 Episodic Comment on above: UTI Coronary atherosclerosis and other heart disease (9 sources) Presence of aortocoronary bypass graft; Translations: [Aortocoronary bypass status] Onset: 05-15-2002 01-17-2014 Episodic Inflammatory conditions of male genital organs (10 sources) Prostatitis; Translations: [Inflammatory disease of prostate, unspecified] Onset: 05-02-2021 05-02-2021 Episodic Other aftercare (5 sources) Long-term drug therapy; Translations: [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] Onset: 09-19-2014 09-19-2014 Episodic Other and unspecified benign neoplasm (1 source) Benign neoplasm of rectum; Translations: [Benign neoplasm of rectum] Onset: 08-26-2011 Episodic Other and unspecified benign neoplasm (1 source) Benign neoplasm of anus and anal canal; Translations: [Benign neoplasm of anus and anal canal] Onset: 08-26-2011 Episodic Other and unspecified benign neoplasm (11 sources) Benign neoplasm of rectum and anal canal; Translations: [Benign neoplasm of rectum] Onset: 08-26-2011 08-26-2011 Episodic Other connective tissue disease (10 sources) Pain in right arm; Translations: [Pain in right arm] Onset: 05-03-2021 05-03-2021 Episodic Other diseases of kidney and ureters (1 source) Other obstructive and reflux uropathy; Translations: [Other obstructive and reflux uropathy] Onset: 03-17-2014 Episodic Other nutritional; endocrine; and metabolic disorders (10 sources) Body mass index (BMI) 29.0-29.9, adult; Translations: [Body Mass Index 29.0-29.9, adult] Onset: 11-10-2014 Resolved: 05-15-2015 05-15-2015 Episodic Pulmonary heart disease (20 sources) H/O: pulmonary embolus; Translations: [Personal history of pulmonary embolism] Onset: 03-09-2019 07-24-2020 Episodic Residual codes; unclassified (5 sources) FH: Raised blood lipids; Translations: [Family history of other endocrine, nutritional and metabolic diseases] 04-22-2014 Episodic Septicemia (except in labor) (15 sources) Sepsis; Translations: [Sepsis, unspecified organism] Onset: 05-02-2021 Resolved: 07-18-2021 06-01-2021 Episodic Spondylosis; intervertebral disc disorders; other back problems (9 sources) Pain in thoracic spine; Translations: [Low back pain] Onset: 08-14-2024 10-28-2020 Episodic Urinary tract infections (11 sources) Urinary tract infectious disease; Translations: [Urinary tract infection, site not specified] Onset: 05-02-2021 Episodic Results Test Name Value Interpretation Reference Range Facility PSA,Total - Annual Screenon 11-18-2024 PSA,TOT SCREEN 1.78 ng/mL Normal 0.02-4.00 [facility] Comment on above: Result Comment: This test was performed using the [employer] tPSA method. Measured values of a patient??sample can vary depending on the testing procedure used. PSA values determined on patient samples by different testing procedures cannot be used interchangeably. If there is a change in PSA assays while monitoring therapy, sequential testing should be performed to confirm baseline values. Performed By: #### L [id number] ####[facility] [id number] [place], [address] Orthopedic Visit Reporton Orthopedic Visit Report [facility] [address] [place] [id number] OFFICE VISIT Date of Service: 09/20/24 MR#: [id number] Acct: [id number] Name: JULIANOEDMUNDOARMIN OCHOA Rep #: [id number] : 1955 Provider: Dr. Jonathan Abdi MD Age/Sex: 69/M Location: [facility] Status: Signed Intake Vital Signs 08/14/24 09:00 09/20/24 08:50 Height 6 ft 6 ft Weight: 221 lb 220 lb BMI 29.9 29.8 Intake Visit Reasons: LUMBAR SPINE Chief Complaint: Lumbar spine MRI review Accompanied by: Self Is patient in pain?: Yes Pain scale (1-10): 4 Allergies amoxicillin Allergy (Verified 09/20/24 08:52) rash on feet after 5 days of treatment ampicillin Allergy (Verified 09/20/24 08:52) Rash on feet after 5 days gemfibrozil Adverse Reaction (Severe, Verified 09/20/24 08:52) Other rosuvastatin (From Crestor) Adverse Reaction (Severe, Verified 09/20/24 08:52) Vision changes/eye pain/knee pain ezetimibe (From Zetia) Adverse Reaction (Intermediate, Verified 09/20/24 08:52) Severe Constipation ciprofloxacin (From Cipro) Adverse Reaction (Verified 09/20/24 08:52) Pain in joints Medications ???Medication ???Instructions ???Recorded ???Confirmed ???Type finasteride 5 mg tablet 5 mg PO DAILY 06/01/21 09/20/24 Hi story amlodipine 5 mg tablet 5 mg PO DAILY #90 tabs 05/14/24 Rx losartan 25 mg tablet See Rx Instructions .Route 5 09/20/24 Rx .COMPLEX #90 tabs evolocumab 140 mg/mL subcutaneous 140 mg subcut Q2W #2 mL 08/05/24 09/20/24 Rx pen injector (Kev Kumari) Have you fallen in the past year?: No [facility] Medical History (Updated 09/20/24 @ 09:47 by Faith Glynn RN) Spinal hemangioma Foraminal stenosis of lumbar region Klebsiella infect (05/2021) Sepsis (05/2021) Hematuria History of pulmonary embolus (PE) (03/2019) Presence of inferior vena cava filter Traumatic pneumothorax Deep vein thrombosis (DVT) (03/2019) Non-ischemic cardiomyopathy Essential (primary) hypertension History of lipoma removal Palpitations Hyperlipidemia Atherosclerotic heart disease of [place] coronary artery without angina pectoris Dyspnea on exertion Surgical History S/p bilateral carpal tunnel release History of colonoscopy (2012) History of inferior vena caval filter placement (03/2019) History of transurethral resection of prostate (03/2019) H/O coronary artery bypass surgery (05/15/02) History of Achilles tendon repair History of arthroscopy of right knee History of left inguinal hernia repair History of back surgery History of tonsillectomy Family History Father S/P CABG (coronary artery bypass graft), Onset Age: 51 CAD (coronary artery disease) Multiple coronary stents Myocardial infarction Diabetes Mother CVA (cerebral vascular accident) Multiple CVA's Sister Cancer Brother Diabetes Social History Smoking Status: Never smoker alcohol intake: never substance use type: does not use caffeine: Yes (Occasionally) HPI LUMBAR SPINE Details: This documentation accurately reflects the service provided and the decisions made by me, Dr. Jonathan Abdi MD 09/20/24 0850. Part of today???s visit was documented by Nai Baptiste MA and Faith Glynn RN, acting as scribe. EDMUNDO HENAO is a 69 year old M here today for lumbar spine MRI review. Patient states that his pain is a 4 today in the lower back. He would like to go over the MRI results to discuss what the next step would be. Patient states that he has had back injections in the past. He doesn't remember how many injections he has had, his injections were years ago. Patient doesn't remember if he did physical therapy for his back in the past. He did have an L5-S1 laminectomy 25 years ago. The low back pain is worse on the left. He denies radicular pain. The pain is worse with driving which he has to do for work. He can walk long distances. Sitting for long distances is difficult. 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 He does not have diabetes. The patient is a 69-year-old male presenting with chronic back pain and lumbar disc degeneration. He underwent lumbar surgery 25 years ago, which was later deemed inappropriate as it was intended for leg pain rather than the primary issue of back pain. Post-surgery, he experienced persistent back pain, which he managed while continuing to work. Approximately one year ago, he aggravated his back condition while riding a tractor with a broken seat, leading to increased pain localized to the left side of the lumbar region. The pain worsen (more content not included)... Normal [facility] Magnetic resonance imaging r eportOrdered By: Stanislav Ye on 08-30-2024 Study report [facility] Services [address] [place] [address] Spine Lumbar W/WO Contrast MR#: [id number] Acct: [id number] Name: EDMUNDO HENAO Rep #: [id number] : 1955 M 69 From: Yudelka Ye MD PCP: Dr. Yue Wang, Status: REG CLI Study:Spine Lumbar W/WO Contrast Date of Exa m: 08/30/24 Exam# [id number] Ordering Dr: Jerson Quinn ADDENDUM by Dr. Stanislav Ye MD on 08/30/24 at 1518 The vertebral body portion of the T12 vertebral body is largely replaced by hemangioma. The L2 vertebral body hemangioma is located posteriorly measuring 2.7 x 1.7 x 3.2 cm. These are often of little clinical significance. These are fairly common with an incidence of 10-12%. On rare occasion there has been association with pathologic fracture. Reading Location: [id number] 08/30/24 1519 Date cc: TOM Wright; Dr. Yue Wang, DO ~* Signed PROCEDURE: SPINE LUMBAR W/WO CONTRAST 08/30/2024 REASON FOR EXAM: PAIN Low back and buttock pain for 9 months off and on. Paresthesias. Prior L5/S1 laminectomy 30 years ago. TECHNIQUE: SPINE LUMBAR W/WO CONTRAST Multiplanar and multisequence images were obtained without and with intravenous gadolinium-based contrast administration. CONTRAST: Clariscan VOLUME: 19 mL COMPARISON: August 14, 2024, January 19, 2024 FINDINGS: Vertebrae: Hemangioma is shown within the T12 vertebral body, right pedicle and proximal transverse process. Hemangioma is also present at the posterior L2 vertebral body. Minimal anterior wedging of the L1 vertebral body is likely clinically insignificant. Alignment: Normal. No spondylolisthesis. Conus Medullaris: Terminates at L1/2. Normal signal. T12-L1: Normal. L1-2: Normal. L2-3: Mild, diffuse disc bulge. Mild thickening of ligamentum flavum. Mild facet hypertrophy. L3-4: Mild, diffuse disc mild facet hypertrophy. Mild thickening of ligamentum flavum. L4-5: Mild, diffuse disc bulge. Mild thickening of ligamentum flavum. Mild facet hypertrophy. L5-S1: Mild, diffuse disc bulge and mild loss of disc height. Small posterior annular defect.. Moderate facet hypertrophy, bkybm-drdcljv-rymd-left. No central stenosis. Bilateral exit foraminal narrowing. Correlate with L5 radiculopathy. Sacrum: No acute abnormality Postcontrast images: No abnormal enhancing mass. Partially imaged parapelvic cysts and exophytic left renal cyst MRI/Spine Lumbar W/WO Contrast IMPRESSION: Mild degenerative changes greatest at L5/S1. Reading Location: [id number] CC: TOM Wright; Dr. Yue Wang DO ~ [employer] Consultant: Signed [facility] Spine Lumbar W/WO Contraston 08-30-2024 Spine Lumbar W/WO Contrast [facility] Imaging Services [address] [place] [address] Spine Lumbar W/WO Contrast MR#: [id number] Acct: [id number] Name: EDMUNDO HENAO Rep #: [id number] : 1955 M 69 From: Stanislav Ye MD PCP: Dr. Yue Wang DO Status: REG CLI Study: Spine Lumbar W/WO Contrast Date of Exam: 08/07 06/30 Exam# [id number] Ordering Dr: Isabel Quinn ADDENDUM by Dr. Stanislav Ye MD on 08/30/24 at 1518 The vertebral body portion of the T12 vertebral body is largely replaced by hemangioma. The L2 vertebral body hemangioma is located posteriorly measuring 2.7 x 1.7 x 3.2 cm. These are often of little clinical significance. These are fairly common with an incidence of 10-12%. On rare occasion there has been association with pathologic fracture. Reading Location: [id number] 08/30/24 1519 Date cc: TOM Wright; Dr. Yue Wang, DO * Signed PROCEDURE: SPINE LUMBAR W/WO CONTRAST 08/30/2024 REASON FOR EXAM: PAIN Low back and buttock pain for 9 months off and on. Paresthesias. Prior L5/S1 laminectomy 30 years ago. TECHNIQUE: SPINE LUMBAR W/WO CONTRAST Multiplanar and multisequence images were obtained without and with intravenous gadolinium-based contrast administration. CONTRAST: Clariscan VOLUME: 19 mL COMPARISON: August 14, 2024, January 19, 2024 FINDINGS: Vertebrae: Hemangioma is shown within the T12 vertebral body, right pedicle and proximal transverse process. Hemangioma is also present at the posterior L2 vertebral body. Minimal anterior wedging of the L1 vertebral body is likely clinically insignificant. Alignment: Normal. No spondylolisthesis. Conus Medullaris: Terminates at L1/2. Normal signal. T12-L1: Normal. L1-2: Normal. L2-3: Mild, diffuse disc bulge. Mild thickening of ligamentum flavum. Mild facet hypertrophy. L3-4: Mild, diffuse disc mild facet hypertrophy. Mild thickening of ligamentum flavum. L4-5: Mild, diffuse disc bulge. Mild thickening of ligamentum flavum. Mild facet hypertrophy. L5-S1: Mild, diffuse disc bulge and mild loss of disc height. Small posterior annular defect.. Moderate facet hypertrophy, svobd-kkognql-bdav-left. No central stenosis. Bilateral exit foraminal narrowing. Correlate with L5 radiculopathy. Sacrum: No acute abnormality Postcontrast images: No abnormal enhancing mass. Partially imaged parapelvic cysts and exophytic left renal cyst MRI/Spine Lumbar W/WO Contrast IMPRESSION: Mild degenerative changes greatest at L5/S1. Reading Location: JONNY CC: TOM Wrihgt; Dr. Yue Wang DO [employer] Consultant: Signed Normal [facility] L/S Spine Min 4 Viewson L/S Spine Min 4 Views [facility] Services [address] [place], [place] [id number] L/S Spine Min 4 Views MR#: [id number] Acct: [id number] Name: EDMUNDO HENAO Rep #: [id number] : 1955 M 69 From: Moncho Mcgrath MD PCP: Dr. Yue Wang DO Status: DEP AMB Study: L/S Spine Min 4 Views Date of Exam: 08/14/24 Exam# [id number] Ordering Dr: Isabel Quinn EXAM: XR Lumbosacral Spine Flexion/Extension Only, 2 or 3 Views CLINICAL INDICATION: BACK PAIN TECHNIQUE: Lateral flexion/extension views of the lumbar spine and sacrum. COMPARISON: No relevant prior studies available. FINDINGS: VERTEBRAE: Moderate endplate degenerative changes of L1 through S1. Mild disc disease of L3-S1. Mild anterior spurring of L1-2 S1. Mild facet arthropathy of L4-S1. No acute fracture. Normal sagittal alignment. No instability. SACRUM/COCCYX: See above. DISC SPACES: See above. SOFT TISSUES: Unremarkable. RAD/L/S Spine Min 4 Views IMPRESSION: Degenerative changes as above. No acute fracture or significant dynamic instability. Reading Location: DAVE CC: TOM Wright; Dr. Yue Wang DO [employer] Consultant: Signed Normal [facility] Orthopedic Visit Reporton Orthopedic Visit Report [facility] [address] [place] [address] [address] [place] [address] OFFICE VISIT Date of Service: 08/14/24 MR#: [id number] Acct: [id number] Name: EDMUNDO HENAO Rep #: [id number] : 1955 Provider: TOM Wright Age/Sex: 69/M Location: [facility] Status: Signed Intake Vital Signs 05/01/24 15:20 08/14/24 09:00 Height 6 ft 6 ft Weight: 221 lb BMI 29.9 Intake Visit Reasons: LUMBAR SPINE Allergies amoxicillin Allergy (Verified 08/14/24 09:02) rash on feet after 5 days of treatment ampicillin Allergy (Verified 08/14/24 09:02) Rash on feet after 5 days gemfibrozil Adverse Reaction (Severe, Verified 08/14/24 09:02) Other rosuvastatin (From Crestor) Adverse Reaction (Severe, Verified 08/14/24 09:02) Vision changes/eye pain/knee pain ezetimibe (From Zetia) Adverse Reaction (Intermediate, Verified 08/14/24 09:02) Severe Constipation ciprofloxacin (From Cipro) Adverse Reaction (Verified 08/14/24 09:02) Pain in joints Have you fallen in the past year?: No PFSH Medical History Klebsiella infect (05/2021) Sepsis (05/2021) Hematuria History of pulmonary embolus (PE) (03/2019) Presence of inferior vena cava filter Traumatic pneumothorax Deep vein thrombosis (DVT) (03/2019) Non-ischemic cardiomyopathy Essential (primary) hypertension History of lipoma removal Palpitations Hyperlipidemia Atherosclerotic heart disease of [place] coronary artery without angina pectoris Dyspnea on exertion Surgical History S/p bilateral carpal tunnel release History of colonoscopy (2012) History of inferior vena caval filter placement (03/2019) History of transurethral resection of prostate (03/2019) H/O coronary artery bypass surgery (05/15/02) History of Achilles tendon repair History of arthroscopy of right knee History of left inguinal hernia repair History of back surgery History of tonsillectomy Family History Father S/P CABG (coronary artery bypass graft), Onset Age: 51 CAD (coronary artery disease) Multiple coronary stents Myocardial infarction Diabetes Mother CVA (cerebral vascular accident) Multiple CVA's Sister Cancer Brother Diabetes Social History Smoking Status: Never smoker alcohol intake: never substance use type: does not use caffeine: Yes (Occasionally) HPI LUMBAR SPINE Details: This documentation accurately reflects the service provided and the decisions made by me, TOM Wright 08/14/24 0859. Part of today???s visit was documented by Sarah SRINIVASAN, acting as scribe. EDMUNDO HENAO is a 69 year old M here today for low back pain. He did have a prior laminectomy about [address] Popeye Alexander at L5-S1 then 2 weeks later he started having a lot of pain and saw one of the doctors partners and was told that he did the wrong surgery and should've had a fusion. He states that his lower back pain can be on either the left or right side. He did recently have to go for a 7hr drive and had stopped after 2hrs because he was having pain on the right side below his belt line. He states that during his drive if he slouched down it relieved some of the pain. He does have some bilateral leg weakness but denies leg pain. Denies numbness, tingling or other associated symptoms. He says that walking is okay and does not seem to increase his pain. Sitting for long periods of time increases his pain. Standing for longer than 30 minutes to 1 hour can also increase his pain. He feels like his leg muscles get weak after sitting for a long period of time. He denies having a recent MRI and his last xrays were in January2023. Patient states that he saw the advertisement for Dr. Abdi and his surgery and would like to see if that would be an option for him. He did do PT 3 months ago that he did twice a week for a month as that is all that medicare would allow him to do. The physical therapy did help him and he felt that he was getting stronger but did have pain while doing PT. He thinks that he may have had injections before his previous surgery but is unable to recall. He denies having any balance issues. He notes that he does have some issues with his neck. No dexterity issues. Denies any recent falls. No cane or walker. Hx of prediabetes last a1c was 5.7 in April, hx of bypass surgery years ago, sees cardiology, no blood thinners. Left inguinal hernia surgery and scar. Ortho Exam General General: Yes no acute distress Neurologic: Yes alert and Yes oriented x3 Spine SPINE TESTING CERVICAL THORACIC LUMBAR Musculoskeletal Strength 0=absent - 5=normal Details: Neurological exam of the lower ex (more content not included)... Normal [facility] Bilirubin directOrdered By: Brii Singh on 08-13-2024 Bilirubin.direct [Mass/Vol] 0.15 mg/dL 0.00-0.30 [facility] Comment on above: Hemolysis present, R esults could be affected. Bilirubin, totalOrdered By: Brii Singh on 08-13-2024 Bilirubin [Mass/Vol] 0.44 mg/dL 0.00-1.30 [facility] Brain W/WO Contraston 2024 Brain W/WO Contrast [facility] Imaging Services [address] [place] [address] Brain W/WO Contrast MR#: [id number] Acct: [id number] Name: EDMUNDO HENAO Rep #: [id number] : 1955 M 69 From: Malinda mcdonald MD PCP: Dr. Yue Wang, DO Status: REG CLI Study: Brain W/WO Contrast Date of Exam: 08/13/24 Exam# [id number] Ordering Dr: Steven Simpson MD PROCEDURE: BRAIN W/WO CONTRAST 08/13/2024 REASON FOR EXAM: OPTIC NERVE ATROPHY R/O MASS/ANEURYSM TECHNIQUE: BRAIN W/WO CONTRAST Multiplanar and multisequence images were obtained. CONTRAST: Clariscan VOLUME: 19 mL COMPARISON: none FINDINGS: Reduced girth of the intra-orbital segment left optic nerve compared to the right side with prominent rula-optic CSF. Normal appearance of the right optic nerve. Normal MRI appearance of rest of the orbital structures, both globes, optic chiasm, optic tracts and optic radiations. No acute or hyperacute infarcts. No intracerebral or extra-axial hematomas. No obvious enhancing masses. Bilateral cerebral periventricular and subcortical foci and patches of high T2/FLAIR [place] signal. Normal MRI signal of the cerebellar hemispheres and rest of the brain stem. Prominent ventricular system, cortical sulci and extra-axial CSF spaces. No shift of midline structures. Normal MRI appearance of the petrous temporal bones cerebellopontine angles with no definite masses. Scanned paranasal sinuses show maxillary sinusitis Patent MRA flow signals of the petrous, cavernous and supraclinoid segments of the internal carotid arteries with no tight stenotic lesions or aneurysmal dilatation. Patent MRA signal of the anterior and middle cerebral arteries (with no tight stenotic lesions or aneurysmal dilatation. Bi-hemispheric anterior cerebral artery (variant) Patent MRA signal of the V4 segments of the vertebral arteries and basilar artery with no tight stenotic lesions or aneurysmal dilatation. Patent posterior cerebral arteries. No tight stenotic lesions or aneurysmal dilatation. MRI/Brain W/WO Contrast IMPRESSION: Mild left optic nerve atrophy. No acute infarcts. No intracerebral or extra-axial hematomas. No enhancing masses. Bilateral cerebral microvascular ischemic changes. Age appropriate brain involutional changes. Reading Location: [place] [address] CC: Dr. Steven Simpson MD; Dr. Yue Wang DO [employer] Consultant: Signed Normal [facility] Calculated very low density lipoprotein (VLDL) cholesterol measurementOrdered By: Brii Singh on 08-13-2024 Calculated very low density lipoprotein (VLDL) cholesterol measurement 36 mg/dL 5-40 [facility] LDL calc ser/plasOrdered By: Brii Singh on 08-13-2024 Cholesterol in LDL [Mass/Vol] 34 mg/dL [facility] Comment on above: Lrzorldlnt=452-384 m g/dL & Higher Gmhk=622 mg/dL or greater Laboratory - Chemistry and C hemistry - challengeOrdered By: Brii Singh on 08-13-2024 AST [Catalytic activity/Vol] 30 U/L <38 [facility] Comment on above: Hemolysis present, R esults could be affected. Lipid Profileon 08-13-2024 CHOL:HDL 3.07 Normal [facility] Comment on above: Performed By: #### L 500.3400, L500.4100 ####[facility] [address] [place], [place], [id number] Cholesterol [Mass/Vol] 104 mg/dL Normal <=200 [facility] Comment on above: Result Comment: Chol esterol level, Desirable <200 mg/dL Borderline high cholesterol 200-239 mg/dL High cholesterol >=240 mg/dL Recommendations of the NCEP Adult Treatment Panel for the following risk-cutoff thresholds for the [place] population. Performed By: #### L 500.3400, L500.4100 ####[facility] [address] [place], [address] Cholesterol in HDL [Mass/Vol] 34 mg/dL Low [facility] Comment on above: Result Comment: [place] on[place] Cholesterol Education Program (NCEP) guidelines: <40 mg/dL: Low HDL-cholesterol (major risk factor for CHD) >= 60 mg/dL: High HDL-cholesterol (negative risk factor for CHD) HDL-cholesterol is affected by a number of factors, e.g. smoking, exercise, hormones, sex and age. Performed By: #### L 500.3400, L500.4100 ####[facility] [address] [place], [address] Cholesterol in LDL [Mass/Vol] 34 mg/dL Normal [facility] Comment on above: Result Comment: Bord nanjwd=810-923 mg/dL Higher Qwyd=190 mg/dL or greater Performed By: #### L 500.3400, L500.4100 ####[facility] [address] [place], [address] Cholesterol in VLDL [Mass/Vol] 36 mg/dL Normal 5-40 [facility] Comment on above: Performed By: #### L 500.3400, L500.4100 ####[facility] [address] [place], [address] Triglyceride [Mass/Vol] 180 mg/dL Normal [facility] Comment on above: Result Comment: The drugs N-Acetylcysteine and Metamizole may falsely depress this assay. Normal range: <150 mg/dL Borderline High: 150-199 mg/dL High: 200-499 mg/dL Very High: >500 mg/dL Performed By: #### L 500.3400, L500.4100 ####[facility] [address] [place], [address] Liver Profileon 08-13-2024 Albumin [Mass/Vol] 4.0 g/dL Normal 3.4-4.8 [facility] Comment on above: Performed By: #### L 500.3400, L500.4100 ####[facility] [address] [place], [address] ALK PHOS 99 U/L Normal 40-129 [facility] Comment on above: Performed By: #### L 500.3400, L500.4100 ####[facility] [address] [place], [address] ALT [Catalytic activity/Vol] 35 U/L Normal <=46 [facility] Comment on above: Performed By: #### L 500.3400, L500.4100 ####[facility] [address] [place], [address] AST [Catalytic activity/Vol] 30 U/L Normal <=37 [facility] Comment on above: Result Comment: Hemo lysis present, Results??could be affected. ?? Performed By: #### L 500.3400, L500.4100 ####[facility] [address] [place], [address] Bilirubin [Mass/Vol] 0.44 mg/dL Normal 0.00-1.30 [facility] Comment on above: Performed By: #### L 500.3400, L500.4100 ####[facility] [address] [place], [address] Bilirubin.direct [Mass/Vol] 0.15 mg/dL Normal 0.00-0.30 [facility] Comment on above: Result Comment: Hemo lysis present, Results??could be affected. ?? Performed By: #### L 500.3400, L500.4100 ####[facility] [address] [place], [address] Globulin (S) [Mass/Vol] 2.6 g/dL Normal 2.2-4.2 [facility] Comment on above: Performed By: #### L 500.3400, L500.4100 ####[facility] [address] [place], [address] T PROT 6.6 g/dL Normal 5.9-8.4 [facility] Comment on above: Performed By: #### L 500.3400, L500.4100 ####[facility] [address] [place], [address] MRA Head ONLY without Contra ston 08-13-2024 MRA Head ONLY without Contrast [facility] Imaging Services [address] [place] [address] MRA Head ONLY without Contrast MR#: [id number] Acct: [id number] Name: EDMUNDO HENAO Rep #: [id number] : 1955 M 69 From: Jim Ibarra MD PCP: Dr. Yue Wang DO Status: REG CLI Study: MRA Head ONLY without Contrast Date of Exam: 0 08/13/24 Exam# [id number] Ordering Dr: Steven Simpson MD PROCEDURE: MRA HEAD ONLY WITHOUT CONTRAST 08/13/2024 REASON FOR EXAM: R/O MASS ANEURYSM COMPARISON: None. TECHNIQUE: MRA HEAD ONLY WITHOUT CONTRAST Multiplanar multisequential imaging was performed without IV contrast administration. FINDINGS: The carotid siphons, anterior cerebral, anterior communicating, middle cerebral, and posterior cerebral arteries are patent. No visualized aneurysm (MRA is insensitive for aneurysms less than or equal to 3 mm). The intracranial vertebrobasilar system is patent. MRI/MRA Head ONLY without Contrast IMPRESSION: No acute intracranial arterial abnormality. Reading Location: [id number] CC: Dr. Steven Simpson MD; Dr. Yue Wang DO [employer] Consultant: Signed Normal [facility] Magnetic resonance imaging r eportOrdered By: Malinda Drew on 08-13-2024 Study report [facility] Imaging Services [address] [place] [address] Brain W/WO Contrast MR#: [id number] Acct: [id number] Name: EDMUNDO HENAO Rep #: [id number] : 1955 M 69 From: Ti Drew MD PCP: Dr. Yue Wang DO Status: REG CLI Study:Brain W/WO Contrast Date of Exam: 08/13/24 Exam# [id number] Ordering Dr: Kunal Simpson MD PROCEDURE: BRAIN W/WO CONTRAST 08/13/2024 REASON FOR EXAM: OPTIC NERVE ATROPHY R/O MASS/ANEURYSM TECHNIQUE: BRAIN W/WO CONTRAST Multiplanar and multisequence images were obtained. CONTRAST: Clariscan VOLUME: 19 mL COMPARISON: none FINDINGS: Reduced girth of the intra-orbital segment left optic nerve compared to the right side with prominent rula-optic CSF. Normal appearance of the right optic nerve. Normal MRI appearance of rest of the orbital structures, both globes, optic chiasm, optic tracts and optic radiations. No acute or hyperacute infarcts. No intracerebral or extra-axial hematomas. No obvious enhancing masses. Bilateral cerebral periventricular and subcortical foci and patches of high T2/FLAIR WI signal. Normal MRI signal of the cerebellar hemispheres and rest of the brain stem. Prominent ventricular system, cortical sulci and extra-axial CSF spaces. No shift of midline structures. Normal MRI appearance of the petrous temporal bones cerebellopontine angles withno definite masses. Scanned paranasal sinuses show maxillary sinusitis Patent MRA flow signals of the petrous, cavernous and supraclinoid segments of the internal carotid arteries with no tight stenotic lesions or aneurysmal dilatation. Patent MRA signal of the anterior and middle cerebral arteries (with no tight stenotic lesions or aneurysmal dilatation. Bi-hemispheric anterior cerebral artery (variant) Patent MRA signal of the V4 segments of the vertebral arteries and basilar artery with no tight stenotic lesions or aneurysmal dilatation. Patent posterior cerebral arteries. No tight stenotic lesions or aneurysmal dilatation. MRI/Brain W/WO Contrast IMPRESSION: Mild left optic nerve atrophy. No acute infarcts. No intracerebral or extra-axial hematomas. No enhancing masses. Bilateral cerebral microvascular ischemic changes. Age appropriate brain involutional changes. Reading Location: [place] [address] CC: Dr. Steven Simpson MD; Dr. Yue Wang DO ~ [employer] Consultant: Signed [facility] Magnetic resonance imaging r eportOrdered By: Jim Ibarra on 08-13-2024 Study report [facility] Imaging Services [address] [place], [place] [address] MRA Head ONLY without Contrast MR#: [id number] Acct: [id number] Name: EDMUNDO HENAO Rep #: [id number] : 1955 M 69 From: Stephane Ibarra MD PCP: Dr. Yue Wang DO Status: REG CLI Study:MRA Head ONLY without Contrast Date of Exam: 08/13/24 Exam# [id number] Ordering Dr: Kunal Simpson MD PROCEDURE: MRA HEAD ONLY WITHOUT CONTRAST 08/13/2024 REASON FOR EXAM: R/O MASS ANEURYSM COMPARISON: None. TECHNIQUE: MRA HEAD ONLY WITHOUT CONTRAST Multiplanar multisequential imaging was performedwithout IV contrast administration. FINDINGS: The carotid siphons, anterior cerebral, anterior communicating, middle cerebral,and posterior cerebral arteries are patent. No visualized aneurysm (MRA is insensitive for aneurysms less than or equal to 3 mm). The intracranial vertebrobasilar system is patent. MRI/MRA Head ONLY without Contrast IMPRESSION: No acute intracranial arterial abnormality. Reading Location: [id number] CC: Dr. Steven Simpson MD; Dr. Yue Wang DO ~ [employer] Consultant: Signed [facility] Screening total cholesterol/ high density lipoprotein (HDL) cholesterol ratioOrdered By: Brii Singh on 08-13-2024 Cholesterol.total/Ch olesterol in HDL [Mass ratio] 3.07 {ratio} [facility] Serum globulin measurementOr dered By: Brii Singh on 08-13-2024 Globulin (S) [Mass/Vol] 2.6 g/dL 2.2-4.2 [facility] Serum or plasma alanine cruz otransferase (ALT) measurementOrdered By: Brii Singh on 08-13-2024 ALT [Catalytic activity/Vol] 35 U/L <47 [facility] Serum or plasma albumin david urement (mass/volume)Ordered By: Brii Singh on 08-13-2024 Albumin [Mass/Vol] 4.0 g/dL 3.4-4.8 [facility] Serum or plasma alkaline yandy sphatase measurementOrdered By: Brii Singh on 08-13-2024 ALP [Catalytic activity/Vol] 99 U/L 40-129 [facility] Serum or plasma cholesterol in HDL measurement (mass/volume)Ordered By: Brii Singh on 08-13-2024 Cholesterol in HDL [Mass/Vol] 34 mg/dL Low >40 [facility] Comment on above: National Cholesterol Education Program (NCEP) guidelines:<40 mg/dL: Low HDL-cholesterol (major risk factor for CHD)>= 60 mg/dL: High HDL-cholesterol (negative risk factor for CHD)HDL-cholesterol is affected by a number of factors, e.g. smoking, exercise, hormones, sex and age. Serum or plasma cholesterol measurement (mass/volume)Ordered By: Brii Singh on 08-13-2024 Cholesterol [Mass/Vol] 104 mg/dL <201 [facility] Comment on above: Cholesterol level, D esirable <200 mg/dLBorderline high cholesterol 200-239 mg/dLHigh cholesterol >=240 mg/dLRecommendations of the NCEP Adult Treatment Panel for the following risk-cutoff thresholds for the [place] population. Total proteinOrdered By: Cecilio Singh on 08-13-2024 Protein [Mass/Vol] 6.6 g/dL 5.9-8.4 [facility] Triglycerides measurementOrd ered By: Brii Singh on 08-13-2024 Triglyceride [Mass/Vol] 180 mg/dL <199 [facility] Comment on above: The drugs N-Acetylcy steine and Metamizole may falsely depress this assay. Normal range: <150 mg/dLBorderline High: 150-199 mg/dLHigh: 200-499 mg/dLVery High: >500 mg/dL Cardiology Visit Reporton Cardiology Visit Report [facility] [address] [place] [address] OFFICE VISIT Date of Service: 05/01/24 MR#: [id number] Acct: [id number] Name: EDMUNDO HENAO Rep #: [id number] : 1955 Provider: ALEX elder Age/Sex: 68/M [place] [facility] [place] Status: Signed HPI HPI History of Present Illness Details: EDMUNDO HENAO, is a 68 M who presents to the office today for a cardiovascular follow-up. He has a history of hypertensive induced cardiomyopathy. He also has a history of coronary artery disease with bypass surgery in 2002. He had an WARD to the LAD and second diagonal, radial graft to the first diagonal and lateral circumflex and free OLGA to the PDA. He did undergo a TURP on February 15, 2019. He unfortunately presented on March 08 as well as March 24 with significant hematuria requiring discontinuation of his anticoagulation. He had previously sustained a DVT as well as pulmonary emboli. This was documented with a CT pulmonary angiogram on 03/25/2019 which demonstrated evidence of multiple right-sided pulmonary emboli. He was taken off his Eliquis during his recent hospitalization after an IVC filter was put in following a right calf DVT. He subsequently had a negative venous Doppler ultrasound and his IVC filter was removed on 07/10/2019. We did review his blood flow screening test he has normal ankle-brachial indices, his blood pressure was unremarkable and his carotids were normal. 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 We also reviewed his lipid profile demonstrating a total cholesterol 160, HDL 35 and LDL of 96. He also had a stress test done in April 2022 which demonstrated no evidence of ischemia at a moderate workload. He acknowledges occasional chest discomfort at rest. He denies exertional symptoms. He acknowledges occasional palpitations that he describes as skipping that is unchanged from previous. He denies bilateral lower extremity edema. He states occasional shortness of breath with activity is unchanged from previous. He denies shortness of breath at rest, cough, orthopnea, or PND. He acknowledges leg weakness. He denies lightheadedness, dizziness, near-syncope, syncope, or fatigue. Intake Vital Signs 05/04/23 14:44 05/01/24 15:20 05/01/24 15:52 Height 6 ft 6 ft Weight: 226 lb BMI 30.6 BP 133/83 H 141/76 H Blood Pressure Location Lt brachial Rt brachial Position Sitting Sitting Respiration 16 Pulse 76 76 Pulse Source NIBP NIBP Intake Visit Reasons: 1 Y FU [employer] Required: No Is patient in pain?: No Allergies amoxicillin Allergy (Verified 05/01/24 15:29) rash on feet after 5 days of treatment ampicillin Allergy (Verified 05/01/24 15:29) Rash on feet after 5 days gemfibrozil Adverse Reaction (Severe, Verified 05/01/24 15:29) Other rosuvastatin (From Crestor) Adverse Reaction (Severe, Verified 05/01/24 15:29) Vision changes/eye pain/knee pain ezetimibe (From Zetia) Adverse Reaction (Intermediate, Verified 05/01/24 15:29) Severe Constipation ciprofloxacin (From Cipro) Adverse Reaction (Verified 05/01/24 15:29) Pain in joints Medications ???Medication ???Instructions ???Recorded ???Confirmed ???Type finasteride 5 mg tablet 5 mg PO DAILY 06/01/21 05/01/24 Hi story amlodipine 5 mg tablet 5 mg PO DAILY #90 tabs 05/04/23 Rx losartan 25 mg tablet See Rx Instructions .Route 4 05/01/24 Rx .COMPLEX #90 tabs evolocumab 140 mg/mL subcutaneous 140 mg subcut Q2W 05/01/24 History pen injector (Kev Kumari) Ejection fraction %: 50 Have you fallen in the past year?: No PFSH Medical History Klebsiella infect (05/2021) Sepsis (05/2021) Hematuria History of pulmonary embolus (PE) (03/2019) Presence of inferior vena cava filter Traumatic pneumothorax Deep vein thrombosis (DVT) (03/2019) Non-ischemic cardiomyopathy Essential (primary) hypertension History of lipoma removal Palpitations Hyperlipidemia Atherosclerotic heart disease of [place] coronary artery without angina pectoris Dyspnea on exertion Surgical History S/p bilateral carpal tunnel release History of colonoscopy (2012) History of inferior vena caval filter placement (03/2019) History of transurethral resection of prostate (03/2019) H/O coronary artery bypass surgery (05/15/02) History of Achilles tendon repair History of arthroscopy of right knee History of left inguinal hernia repair History of back surgery History of tonsillectomy Family History Father S/P CABG (coronary artery bypass graft), Onset Age: 51 CAD (coronary artery disease) Multiple coronary stents Myocardial infarction Diabetes Mother (more content not included)... Normal [facility] Hemoglobin A1con 05-01-2024 HbA1c (Bld) [Mass fraction] 5.7 % Normal <=5.6 [facility] Comment on above: Performed By: #### L 501.9985 #### [facility] [address] [place], [place] [address]all [place], [address] Hemoglobin A1c percentageOrd ered By: Brii Singh on 05-01-2024 HbA1c (Bld) [Mass fraction] 5.7 % >5.7 [facility] XR CHEST 2 VIEWSon XR CHEST 2 VIEWS ORIGINAL EXAMINATION: TWO XRAY VIEWS OF THE CHEST 03/20/2024 7:57 am COMPARISON: Chest x-ray on 07/08/2020 HISTORY: ORDERING SYSTEM PROVIDED HISTORY: Reason for Exam: cough 3 months, wheeze FINDINGS: Sternal wire sutures are intact. The heart size is normal. There is no lung infiltrate or edema. No pneumothorax or pleural fluid is present. Mild thoracic spondylosis is present. There is no acute skeletal abnormality. IMPRESSION: No acute cardiopulmonary process. Interpreted by: Landon Smith MD Preliminary Report By: Landon Smith MD Electronically signed By Landon Smith MD Dictated Date: 03/21/2024 3:33:49 AM Prelim Date: 03/21/2024 3:35:10 AM Sign Date: 03/21/2024 3:35:10 AM Ordering Provider: MIRANDA WRIGHT [facility] directOrdered By: Yakelin Erickson on 02-26-2024 Bilirubin.direct [Mass/Vol] 0.20 mg/dL 0.00-0.30 [facility] Bilirubin, totalOrdered By: Yakelin Erickson on 02-26-2024 Bilirubin [Mass/Vol] 0.60 mg/dL 0.20-1.00 [facility] Comment on above: For patients on eltr ombopag therapy, use of Dimension [place] TBIL is not recommended. High density lipoprotein (HD L) measurementOrdered By: Yakelin Erickson on 02-26-2024 Cholesterol in HDL [Mass/Vol] 39 mg/dL Low >40 [facility] Comment on above: The drugs N-Acetylcy steine and Metamizole may falsely depress this assay. Reference Range HDL <40 mg/dL Low HDL Cholesterol HDL >or= 60 mg/dL High HDL Cholesterol Laboratory - Chemistry and C hemistry - challengeOrdered By: Yakelin Erickson on 02-26-2024 AST [Catalytic activity/Vol] 25 U/L 15-37 [facility] Lipid Profileon 02-26-2024 Cholesterol [Mass/Vol] 111 mg/dL Normal 200 [facility] Comment on above: Result Comment: <200 mg/dL Desirable 200-240 mg/dL Borderline >240 mg/dL High Risk Performed By: #### L 500.3400, L500.4100 #### [facility] [address] [facility] [address] Cholesterol in HDL [Mass/Vol] 39 mg/dL Low [facility] Comment on above: Result Comment: The drugs N-Acetylcysteine and Metamizole may falsely depress this assay. Reference Range HDL <40 mg/dL Low HDL Cholesterol HDL >or= 60 mg/dL High HDL Cholesterol Performed By: #### L 500.3400, L500.4100 #### [facility] [address] [place], [address] Cholesterol in LDL [Mass/Vol] 33 mg/dL Normal 0-130 [facility] Comment on above: Performed By: #### L 500.3400, L500.4100 #### [facility] [address] [place], [address] Cholesterol in VLDL [Mass/Vol] 39 mg/dL Normal 5-40 [facility] Comment on above: Performed By: #### L 500.3400, L500.4100 #### [facility] [address] [place], [address] Triglyceride [Mass/Vol] 193 mg/dL Normal [facility] Comment on above: Result Comment: The drugs N-Acetylcysteine and Metamizole may falsely depress this assay. Serum Triglycerides Reference Interval Normal <150 mg/dL Borderline high 150 - 199 mg/dL High 200 - 499 mg/dL Very High > or = 500 mg/dL Performed By: #### L 500.3400, L500.4100 #### [facility] [address] [place], [address] Liver Profileon 02-26-2024 Albumin [Mass/Vol] 3.5 g/dL Normal 3.2-5.0 [facility] Comment on above: Performed By: #### L 500.3400, L500.4100 #### [facility] [address] [place], [address] ALK P 106 U/L Normal 45-117 [facility] Comment on above: Performed By: #### L 500.3400, L500.4100 #### [facility] [address] [place], [address] ALT [Catalytic activity/Vol] 35 U/L Normal 16-61 [facility] Comment on above: Performed By: #### L 500.3400, L500.4100 #### [facility] [address] [place], [address] AST [Catalytic activity/Vol] 25 U/L Normal 15-37 [facility] Comment on above: Performed By: #### L 500.3400, L500.4100 #### [facility] [address] [place], [address] Bilirubin [Mass/Vol] 0.60 mg/dL Normal 0.20-1.00 [facility] Comment on above: Result Comment: For patients on eltrombopag therapy, use of Dimension [place] TBIL is not recommended. Performed By: #### L 500.3400, L500.4100 #### [facility] [address] [place], [address] Bilirubin.direct [Mass/Vol] 0.20 mg/dL Normal 0.00-0.30 [facility] Comment on above: Performed By: #### L 500.3400, L500.4100 #### [facility] [address] [place], [address] Globulin (S) [Mass/Vol] 3.2 g/dL Normal 2.2-4.2 [facility] Comment on above: Performed By: #### L 500.3400, L500.4100 #### [facility] [address] [place], [address] T PROT 6.7 g/dL Normal 6.4-8.2 [facility] Comment on above: Performed By: #### L 500.3400, L500.4100 #### [facility] [address] [place], [address] Low density lipoprotein (LDL ) cholesterol measurementOrdered By: Yakelin Erickson on 02-26-2024 Cholesterol in LDL [Mass/Vol] 33 mg/dL 0-130 [facility] Serum globulin measurementOr dered By: Yakelin Erickson on 02-26-2024 Globulin (S) [Mass/Vol] 3.2 g/dL 2.2-4.2 [facility] Serum or plasma alanine cruz otransferase (ALT) measurementOrdered By: Yakelin Erickson on 02-26-2024 ALT [Catalytic activity/Vol] 35 U/L 16-61 [facility] Serum or plasma albumin david urement (mass/volume)Ordered By: Yakelin Erickson on 02-26-2024 Albumin [Mass/Vol] 3.5 g/dL 3.2-5.0 [facility] Serum or plasma alkaline yandy sphatase measurementOrdered By: Yakelin Erickson on 02-26-2024 ALP [Catalytic activity/Vol] 106 U/L 45-117 [facility] Serum or plasma cholesterol measurement (mass/volume)Ordered By: Yakelin Erickson on 02-26-2024 Cholesterol [Mass/Vol] 111 mg/dL <200 [facility] Comment on above: <200 mg/dL Desirable 200-240 mg/dL Borderline >240 mg/dL High Risk Total proteinOrdered By: Skip Erickson on 02-26-2024 Protein [Mass/Vol] 6.7 g/dL 6.4-8.2 [facility] Triglycerides measurementOrd ered By: Yakelin Erickson on 02-26-2024 Triglyceride [Mass/Vol] 193 mg/dL <199 [facility] Comment on above: The drugs N-Acetylcy steine and Metamizole may falsely depress this assay.Serum Triglycerides Reference Interval Normal <150 mg/dL Borderline high 150 - 199 mg/dL High 200 - 499 mg/dL Very High > or = 500 mg/dL Very low density lipoprotein (VLDL) cholesterol measurementOrdered By: Yakelin Erickson on 02-26-2024 VLDL Cholesterol 39 mg/dL 5-40 [facility] XR SPINE LUMBAR AP/LATon XR SPINE LUMBAR AP/LAT ORIGINAL EXAMINATION: 3 XRAY VIEWS OF THE LUMBAR SPINE01/19/2024 10:20 am COMPARISON: None. HISTORY: ORDERING SYSTEM PROVIDED HISTORY: Reason for Exam: lumbar pain, history of laminectomy FINDINGS: There are 5 lumbar-type vertebral bodies. Vertebral body heights are maintained. Slight retrolisthesis of L1 on L2, L2 on L3, and L5 on S1 is noted. Mild intervertebral disc space height loss is noted and is most severe and L2-L3 and L5-S1. Postsurgical changes are noted within the lower lumbar spine. Mild facet arthropathy is noted within the lower lumbar spine. Moderate endplate spurring is also seen within the lumbar spine and visualized lower thoracic spine. Narrowing of the inter spinous distance with some areas of subchondral sclerosis within the spinous processes. The SI joints appear normal. Small pelvic phleboliths are noted. Mild vascular calcifications are seen. IMPRESSION: No acute osseous abnormality. Overall, moderate degenerative changes I have personally reviewed the images of this examination and agree with the resident's findings and interpretation. Interpreted by: Da Collier MD Preliminary Report By: Rosa Polk Electronically signed By Da Collier MD Dictated Date: 01/19/2024 10:23:19 AM Prelim Date: 01/19/2024 10:33:59 AM Sign Date: 01/19/2024 10:33:59 AM Ordering Provider: [facility] Lipid Profileon 11-23-2023 Cholesterol [Mass/Vol] 232 mg/dL High 200 [facility] Comment on above: Result Comment: <200 mg/dL Desirable 200-240 mg/dL Borderline >240 mg/dL High Risk Performed By: #### L 500.3400, L500.4100 ####[facility] [address] [facility] [place] [address] Cholesterol in HDL [Mass/Vol] 34 mg/dL Low [facility] Comment on above: Result Comment: The drugs N-Acetylcysteine and Metamizole may falsely depress this assay. Reference Range HDL <40 mg/dL Low HDL Cholesterol HDL >or= 60 mg/dL High HDL Cholesterol Performed By: #### L 500.3400, L500.4100 ####[facility] [address] [place], [address] Cholesterol in LDL [Mass/Vol] 156 mg/dL High 0-130 [facility] Comment on above: Performed By: #### L 500.3400, L500.4100 ####[facility] [address] [place], [address] Cholesterol in VLDL [Mass/Vol] 42 mg/dL High 5-40 [facility] Comment on above: Performed By: #### L 500.3400, L500.4100 ####[facility] [address] [place], [address] Triglyceride [Mass/Vol] 208 mg/dL High [facility] Comment on above: Result Comment: The drugs N-Acetylcysteine and Metamizole may falsely depress this assay. Serum Triglycerides Reference Interval Normal <150 mg/dL Borderline high 150 - 199 mg/dL High 200 - 499 mg/dL Very High > or = 500 mg/dL Performed By: #### L 500.3400, L500.4100 ####[facility] [address] [place], [address] Liver Profileon 11-23-2023 Albumin [Mass/Vol] 3.6 g/dL Normal 3.2-5.0 [facility] Comment on above: Performed By: #### L 500.3400, L500.4100 #### [facility] [address] [place], [address] ALK P 105 U/L Normal 45-117 [facility] Comment on above: Performed By: #### L 500.3400, L500.4100 #### [facility] [address] [place], [address] ALT [Catalytic activity/Vol] 38 U/L Normal 16-61 [facility] Comment on above: Performed By: #### L 500.3400, L500.4100 #### [facility] [address] [place], [address] AST [Catalytic activity/Vol] 26 U/L Normal 15-37 [facility] Comment on above: Performed By: #### L 500.3400, L500.4100 #### [facility] [address] [place], [address] Bilirubin [Mass/Vol] 0.70 mg/dL Normal 0.20-1.00 [facility] Comment on above: Result Comment: For patients on eltrombopag therapy, use of Dimension [place] TBIL is not recommended. Performed By: #### L 500.3400, L500.4100 #### [facility] [address] [place], [address] Bilirubin.direct [Mass/Vol] 0.15 mg/dL Normal 0.00-0.30 [facility] Comment on above: Performed By: #### L 500.3400, L500.4100 #### [facility] [address] [place], [address] Globulin (S) [Mass/Vol] 3.2 g/dL Normal 2.2-4.2 [facility] Comment on above: Performed By: #### L 500.3400, L500.4100 #### [facility] [address] [place], [address] T PROT 6.8 g/dL Normal 6.4-8.2 [facility] Comment on above: Performed By: #### L 500.3400, L500.4100 #### [facility] [address] [place], [address] PSA,Total- Diagnosticon 10- PSA, DIAGNOSTIC 2.02 ng/mL Normal 0.0-4.0 [facility] Comment on above: Result Comment: This test was performed using the TPSA assay method for the Lab21 chemistry system. Values obtained with different assay methods cannot be used interchangably. When changing PSA assays in the course of monitoring a patient, additional sequential testing should be carried out to confirm baseline values. Performed By: #### L 501.9940 #### [facility] [address] [place], [address] Basophil percentageOrdered B y: Mukesh Antony on 05-16-2023 Chloride [Moles/Vol] 109 mmol/L 98-107 [facility] Glucose [Mass/Vol] 199 mg/dL 74-106 [facility] Comment on above: Fasting Glucose resu lt greater than or equal to 126 mg/dL suggests DIABETES MELLITUS per A.D.A. criteria. Potassium [Moles/Vol] 3.7 mmol/L 3.5-5.1 [facility] Sodium [Moles/Vol] 140 mmol/L 136-145 [facility] - Chemistry and C hemistry - challengeOrdered By: Mukesh Antony on 05-16-2023 CO2 [Moles/Vol] 26.0 mmol/L 21.0-32.0 [facility] Urea nitrogen/Creatinine [Mass ratio] 15.1 mg/mg 10-20 [facility] No Panel InformationOrdered By: Mukesh Antony on 05-16-2023 Estimated GFR (MDRD) Amer 104 mL/min >60 [facility] Comment on above: GFR Calc Estimated GFR (MDRD) Non-Af Amer 86 mL/min >60 [facility] Comment on above: Non- GFR Calc Serum or plasma calcium david urement (mass/volume)Ordered By: Mukesh Antony on 05-16-2023 Calcium [Mass/Vol] 8.5 mg/dL 8.5-10.1 [facility] Serum or plasma creatinine m easurement (mass/volume)Ordered By: Mukesh Antony on 05-16-2023 Creatinine [Mass/Vol] 0.93 mg/dL 0.70-1.30 [facility] Comment on above: The validity of the calculated GFR & GFRAA in patients over 70 years has not been determined. Clinical correlation is essential. Serum or plasma urea nitroge n measurement (mass/volume)Ordered By: Mukesh Antony on 05-16-2023 Urea nitrogen [Mass/Vol] 14 mg/dL 7-18 [facility] Thin prep Papanicolaou smear with manual screeningOrdered By: Mukesh Antony on 05-16-2023 Thin prep Papanicolaou smear with manual screening 5 5-15 [facility] Whole blood hemoglobin A1c/t otal hemoglobin ratio (mass fraction)Ordered By: Mukesh Antony on 05-16-2023 HbA1c (Bld) [Mass fraction] 5.8 % 3.8-5.6 [facility] Comment on above: Normal < 5.7 % Predi abetic 5.7 - 6.4 % Diabetic >or= 6.5 % Please note range changes. Basophil percentageOrdered B y: Yakelin Erickson on 04-20-2023 Bilirubin [Mass/Vol] 0.60 mg/dL 0.20-1.00 [facility] Comment on above: For patients on eltr ombopag therapy, use of Dimension [place] TBIL is not recommended. Cholesterol [Mass/Vol] 164 mg/dL <200 [facility] Comment on above: <200 mg/dL Desirable 200-240 mg/dL Borderline >240 mg/dL High Risk Protein [Mass/Vol] 6.7 g/dL 6.4-8.2 [facility] Triglyceride [Mass/Vol] 189 mg/dL <199 [facility] Comment on above: The drugs N-Acetylcy steine and Metamizole may falsely depress this assay.Serum Triglycerides Reference Interval Normal <150 mg/dL Borderline high 150 - 199 mg/dL High 200 - 499 mg/dL Very High > or = 500 mg/dL Direct bilirubinOrdered By: Yakelin Erickson on 04-20-2023 Bilirubin.direct [Mass/Vol] 0.20 mg/dL 0.00-0.30 [facility] - Chemistry and C hemistry - challengeOrdered By: Yakelin Erickson on 04-20-2023 ALP [Catalytic activity/Vol] 107 U/L 45-117 [facility] ALT [Catalytic activity/Vol] 47 U/L 16-61 [facility] Cholesterol in HDL [Mass/Vol] 31 mg/dL >40 [facility] Comment on above: The drugs N-Acetylcy steine and Metamizole may falsely depress this assay. Reference Range HDL <40 mg/dL Low HDL Cholesterol HDL >or= 60 mg/dL High HDL Cholesterol Cholesterol in LDL [Mass/Vol] 95 mg/dL 0-130 [facility] Globulin (S) [Mass/Vol] 3.3 g/dL 2.2-4.2 [facility] No Panel InformationOrdered By: Yakelin Erickson on 04-20-2023 VLDL Cholesterol 38 mg/dL 5-40 [facility] Thin prep Papanicolaou smear with manual screeningOrdered By: Yakelin Erickson on 04-20-2023 Thin prep Papanicolaou smear with manual screening 3.4 g/dL 3.2-5.0 [facility] Thin prep Papanicolaou smear with manual screening 25 U/L 15-37 [facility] INFLUENZA A&B MOLECULAR (POC )on 04-02-2023 Flu A (POCT) Positive Abnormal Negative [facility] Procedural Control Valid [facility] .GFRon 09-01-2022 GFR 93 ml/min/1.73sqm Normal [facility] ([place]) Comment on above: Result Comment: GFR Population mean for , Non- Americans Ages 20-29 = 116 mL/min/1.73 sq.m. Ages 30-39 = 107 mL/min/1.73 sq.m. Ages 40-49 = 99 mL/min/1.73 sq.m. Ages 50-59 = 93 mL/min/1.73 sq.m. Ages 60-69 = 85 mL/min/1.73 sq.m. Ages 70+ = 75 mL/min/1.73 sq.m. Chronic Kidney Disease: Less than 60 mL/min/1.73 square meters End Stage Renal Disease: Less than 15 mL/min/1.73 square meters Performed By: #### B MP, GFR #### [address] [address] GFR Non- 77 ml/min/1.73sqm Normal [facility] ([place]) Comment on above: Result Comment: GFR Population mean for , Non- Americans Ages 20-29 = 116 mL/min/1.73 sq.m. Ages 30-39 = 107 mL/min/1.73 sq.m. Ages 40-49 = 99 mL/min/1.73 sq.m. Ages 50-59 = 93 mL/min/1.73 sq.m. Ages 60-69 = 85 mL/min/1.73 sq.m. Ages 70+ = 75 mL/min/1.73 sq.m. Chronic Kidney Disease: Less than 60 mL/min/1.73 square meters End Stage Renal Disease: Less than 15 mL/min/1.73 square meters Performed By: #### B MP, GFR #### [address] [address] BMPon 09-01-2022 BUN/Creatinine Ratio 16 ratio Normal 09-[facility] Comment on above: Performed By: #### B MP, GFR #### [address] [address] Calcium [Mass/Vol] 8.6 mg/dL Normal 8.4-10.2 [facility] ([place]) Comment on above: Performed By: #### B MP, GFR #### [address] [address] Chloride [Moles/Vol] 106 mmol/L Normal 98-107 [facility] Comment on above: Performed By: #### B MP, GFR #### [address] [address] CO2 [Moles/Vol] 31 mmol/L Normal 23-31 [facility] ([place]) Comment on above: Performed By: #### B MP, GFR #### [address] [address] Creatinine [Mass/Vol] 0.97 mg/dL Normal 0.70-1.30 [facility] ([place]) Comment on above: Performed By: #### B MP, GFR #### [address] [address] Electrolyte Balance 5.0 mEq/L Normal 4.0-15.0 Counts include 234 beds at the [facility] ([place]) Comment on above: Performed By: #### B MP, GFR #### [address] [address] Glucose [Mass/Vol] 117 mg/dL High 80-115 [facility] ([place]) Comment on above: Performed By: #### B MP, GFR #### [address] [address] Potassium [Moles/Vol] 4.7 mmol/L Normal 3.5-5.1 [facility] ([place]) Comment on above: Performed By: #### B MP, GFR #### [address] [address] Sodium [Moles/Vol] 142 mmol/L Normal 136-145 [facility] ([place]) Comment on above: Performed By: #### B MP, GFR #### [address] [address] Urea nitrogen [Mass/Vol] 16 mg/dL Normal 7-18 [facility] ([place]) Comment on above: Performed By: #### B MP, GFR #### [address] [place], [place] [address] LABORATORYOrdered By: SYSTEM SYSTEM on 09-01-2022 Calcium [Mass/Vol] 8.6 mg/dL Invalid Interpretation Code 8.4 - 10.2 mg/dL AO ADM SS Chloride [Moles/Vol] 106 mmol/L Invalid Interpretation Code 98 - 107 mmol/L AO ADM SS CO2 [Moles/Vol] 31 mmol/L Invalid Interpretation Code 23 - 31 mmol/L AO ADM SS Creatinine [Mass/Vol] 0.97 mg/dL Invalid Interpretation Code 0.70 - 1.30 mg/dL AO ADM SS Electrolyte Balance 5.0 mEq/L Invalid Interpretation Code 4.0 - 15.0 mEq/L AO ADM SS GFR/1.73 sq M.predicted among blacks MDRD (S/P/Bld) [Vol rate/Area] 93 ml/min/1.73sqm Invalid Interpretation Code AO Chemistry S Comment on above: Interpretive Data: GFR Population mean for , Non- Americans Ages 20-29 = 116 mL/min/1.73 sq.m. Ages 30-39 = 107 mL/min/1.73 sq.m. Ages 40-49 = 99 mL/min/1.73 sq.m. Ages 50-59 = 93 mL/min/1.73 sq.m. Ages 60-69 = 85 mL/min/1.73 sq.m. Ages 70+ = 75 mL/min/1.73 sq.m. Chronic Kidney Disease: Less than 60 mL/min/1.73 square meters End Stage Renal Disease: Less than 15 mL/min/1.73 square meters GFR/1.73 sq M.predicted among non-blacks MDRD (S/P/Bld) [Vol rate/Area] 77 ml/min/1.73sqm Invalid Interpretation Code AO Chemistry S Comment on above: Interpretive Data: GFR Population mean for , Non- Americans Ages 20-29 = 116 mL/min/1.73 sq.m. Ages 30-39 = 107 mL/min/1.73 sq.m. Ages 40-49 = 99 mL/min/1.73 sq.m. Ages 50-59 = 93 mL/min/1.73 sq.m. Ages 60-69 = 85 mL/min/1.73 sq.m. Ages 70+ = 75 mL/min/1.73 sq.m. Chronic Kidney Disease: Less than 60 mL/min/1.73 square meters End Stage Renal Disease: Less than 15 mL/min/1.73 square meters Glucose [Mass/Vol] 117 mg/dL Invalid Interpretation Code 80 - 115 mg/dL AO ADM SS Potassium [Moles/Vol] 4.7 mmol/L Invalid Interpretation Code 3.5 - 5.1 mmol/L AO ADM SS Sodium [Moles/Vol] 142 mmol/L Invalid Interpretation Code 136 - 145 mmol/L AO ADM SS Urea nitrogen [Mass/Vol] 16 mg/dL Invalid Interpretation Code 7 - 18 mg/dL AO ADM SS Urea nitrogen/Creatinine [Mass ratio] 16 ratio Invalid Interpretation Code 7 - 27 ratio AO ADM SS CNPNon [facility]2022 [facility] -- EDMUNDO HENAO ([id number]) 1955 M NFR Date Time Provider Department 07/11/22 ULICES GREER During your visit today, we recorded the following information about you: Violeta Khalil APRN.CONSTRUCTION ELECTRICIAN 07/11/2022 9:46 AM Signed Attempted to speak with Edmundo Henao on 07/11/2022 at 0945. Patient did not answer. A voicemail was left with a call back number. Allergies As of Date: 07/11/2022 Noted Allergy Reaction AMPICILLIN 11/16/2005 2 - Rash NIACIN 11/16/2005 2 - Rash Comments: bladder irritation with frequency STATINS ([id number] REDUCTAS*11/16/2005 14 - Other: See Comments Comments: Ocular retinitis from Crestor Date Reviewed: 07/05/2022 Reviewed by: Mercedes Burton RN - Fully Assessed Reason for Visit: Patient Update [1234] Cmt: Surg 07/05/2022 - n belly botton area is bleeding bright red blood x 2 days size of a quarter. Prescriptions as of 07/15/2022 - oxyCODONE IR (ROXICODONE) 5 mg immediate release tablet Take 1 tablet by mouth every 6 hours as needed for pain. - albuterol HFA (PROAIR HFA) 90 mcg/actuation inhaler Inhale 2 Puffs as instructed every 6 hours as needed. - losartan (COZAAR) 25 mg tablet Take 25 mg by mouth once daily. - finasteride (PROSCAR) 5 mg tablet Take 5 mg by mouth once daily. - amLODIPine (NORVASC) 5 mg tablet Take 1 tablet by mouth once daily. - aspirin 81 mg cap Take 81 mg by mouth once daily. Takes periodically. Does Not take everyday. - atorvastatin (LIPITOR) 10 mg tablet Take 10 mg by mouth once daily. - VIT E ACETATE/VIT BCOMPANDC/ZINC (ZINC WITH VITAMINS ORAL) Take 1 capsule by mouth once daily. Meds Comments as of 10/19/2017: 10/19/17- Advil, lipitor, ASA PRN and losartan only. 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 Telephone (GENN) -- EDMUNDO HENAO ([id number]) 1955 M NFR Date Time Provider Department 07/11/22 VIOLETA KHALIL During your visit today, we recorded the following information about you: Violeta Khalil APRN.CONSTRUCTION ELECTRICIAN 07/11/2022 9:56 AM Signed Spoke with Edmundo Henao today, July 11, 2022, on the phone regarding drainage from his incision site. Patient states that last night he slept [...] if he has other concerns. Violeta Khalil, MSN, TICKET PRINTER AND TAGGER, CERAMIC PAINTER-C July 11, 2022 9:56 AM Allergies As of Date: 07/11/2022 Noted Allergy Reaction AMPICILLIN 11/16/2005 2 - Rash NIACIN 11/16/2005 2 - Rash Comments: bladder irritation with frequency STATINS ([id number] REDUCTAS*11/16/2005 14 - Other: See Comments Comments: Ocular retinitis from Crestor Date Reviewed: 07/05/2022 Reviewed by: Mercedes Burton RN - Fully Assessed Reason for Visit: Post Op Drainage [1986] Prescriptions as of 07/11/2022 - oxyCODONE IR (ROXICODONE) 5 mg immediate release tablet Take 1 tablet by mouth every 6 hours as needed for pain. - albuterol HFA (PROAIR HFA) 90 mcg/actuation inhaler Inhale 2 Puffs as instructed every 6 hours as needed. - losartan (COZAAR) 25 mg tablet Take 25 mg by mouth once daily. - finasteride (PROSCAR) 5 mg tablet Take 5 mg by mouth once daily. - amLODIPine (NORVASC) 5 mg tablet Take 1 tablet by mouth once daily. - aspirin 81 mg cap Take 81 mg by mouth once daily. Takes periodically. Does Not take everyday. - atorvastatin (LIPITOR) 10 mg tablet Take 10 mg by mouth once daily. - VIT E ACETATE/VIT BCOMPANDC/ZINC (ZINC WITH VITAMINS ORAL) Take 1 capsule by mouth once daily. Meds Comments as of 10/19/2017: 10/19/17- Advil, lipitor, ASA PRN and losartan only. 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 Gross hematuria [R31.0] 10/19/2017 Complicated UTI (urinary tract infection) [N39.*05/02/2021 Hypertension [I10] 05/02/2021 Sepsis (HCC) [A41.9] 05/02/2021 07/18/2021 Prostatitis [N41.9] 05/02/2021 Bacteremia due to Gram-negative bacteria [R78.8*05/03/2021 Pain of right upper extremity [M79.601] 05/03/2021 Obesity, Class I, BMI 30-34.9 [E66.9] 05/08/2021 CAD (coronary artery disease) [I25.10] 06/29/2022 History of pulmonary embolism [Z86.711] 06/29/2022 Encounter Status:Closed by VIOLETA KHALIL on 07/11/22 [facility] ANES POSTPROC EVALon 023 ANES POSTPROC EVAL HNO ID: [id number] Author: Carlos Marc MD Service: ? Author Type: Anesthesiologist Type: Anesthesia Postprocedure Evaluation Filed: 07/05/2022 2:14 PM Note Text: POST ANESTHESIA EVALUATION NOTE : 1955 Procedure Summary Date: 07/05/22 Room / Location: [address] [facility] Anesthesia Start: 721 Anesthesia Stop: 0835 Procedure: HERNIORRHAPHY VENTRAL RECURRENT REDUCIBLE LESS THAN 3cm (Abdomen) Diagnosis: Preoperative examination Recurrent ventral hernia (Preoperative examination [Z01.818]) (Recurrent ventral hernia [K43.2]) Surgeons: Ulices Greer MD Responsible Provider: Carlos Marc MD Anesthesia Type: general ASA Status: 2 Anesthesia Type: No value filed. Last Vitals Vitals Value Taken Time BP 140/85 07/05/22 1000 Temp 36.1 ?C (97 ?F) 07/05/22 0930 Pulse 69 07/05/22 1000 Resp 17 07/05/22 1000 SpO2 94 % 07/05/22 1000 Post Anesthesia Patient Status Patient Evaluation: bedside. Neurological Status: aware and responsive. Pulmonary Status: breathing comfortably on room air Airway Control: returned to baseline unsupported. Cardiovascular Status: stable. Pain Management: clinically adequate Postoperative Hydration: acceptable. Intraoperative Events: no significant anesthesia events Post Operative Nausea/Vomiting Status: no significant post operative nausea or vomiting Recommendation: continue current plan of care. Anesthesia Observations No Documentation SIGNATURE: Carlos Marc MD PATIENT NAME: Edmundo Henao DATE: July 05, 2022 TIME: 2:14 PM CSN: [id number] [facility] ANES PRE-OPon 07-05-2022 ANES PRE-OP HNO ID: [id number] Author: Carlos Marc MD Service: ? Author Type: Anesthesiologist Type: Anesthesia Preprocedure Evaluation Filed: 07/05/2022 2:16 PM Note Text: ANESTHESIOLOGY DAY OF SURGERY NOTE : 1955 Procedure Information Anesthesia Start Date/Time: 07/05/22 0722 Procedure: HERNIORRHAPHY VENTRAL RECURRENT REDUCIBLE LESS THAN 3cm (Abdomen) Location: [facility] Surgeons: Ulices Greer MD Estimated body mass index is 30.34 kg/m? as calculated from the following: Height as of 06/29/22: 185.4 cm (6' 1"). Weight as of 06/29/22: 104.3 kg (230 lb). Most recent hematocrit and potassium results: Hematocrit 46.4 06/29/2022 Potassium 5.2 06/29/2022 Relevant Problems CARDIO (+) CAD (coronary artery disease) (+) Hypertension NEURO-PSYCH (+) History of pulmonary embolism I - PHYSICAL EVALUATION AIRWAY Patient intubated: No. Tracheostomy tube not present Mallampati: II. TM distance: >3 FB. Neck ROM: full ROM without neurological symptoms. Mouth opening: adequate. Short neck: no. Thick neck: no II - ANESTHESIA PLAN ASA Score: 2 Anesthetic Plan: general Airway type: ETT NPO Status: adequate Beta Iqra Monitoring Plan Monitoring plan: standard ASA. Post Procedure Analgesic Plan Postoperative analgesic plan: parenteral or oral opioids. Informed Consent Anesthetic risks, benefits, alternatives, personnel and consent discussed: yes. Patient / Responsible Libertarian agrees to proceed: yes Patient / Surrogate agrees to blood products: Yes Vitals Value Taken Time BP 154/94 07/05/22 0545 Pulse 72 07/05/22 0545 Resp 16 07/05/22 0545 Temp 36.1 ?C (97 ?F) 07/05/22 0545 SpO2 95 % 07/05/22 0545 Facility-Administered Medications as of 07/05/2022 Medication Dose Route Frequency - lidocaine (PF) 10 mg/mL (1 %) 1-2 mg injection (XYLOCAINE) 0.1-0.2 mL INTRADERMAL PRN Or - lidocaine 1% 0.25 mL subcutaneous j-tip syringe (XYLOCAINE) 0.25 mL SUBCUTANEOUS PRN - lactated ringers iv infusion 5-30 mL/hr INTRAVENOUS CONTINUOUS - NaCl 0.9% iv flush bag 20 mL INTRAVENOUS PRN - [COMPLETED] heparin 5,000 Units injection 5,000 Units SUBCUTANEOUS ONCE - vancomycin 1.5 g in NaCl 0.9% 250 mL (VANCOCIN) 0.015 g/kg/dose (Order-Specific) INTRAVENOUS ONCE Outpatient Medications as of 07/05/2022 Medication Sig - losartan (COZAAR) 25 mg tablet Take 25 mg by mouth once daily. - finasteride (PROSCAR) 5 mg tablet Take 5 mg by mouth once daily. - amLODIPine (NORVASC) 5 mg tablet Take 1 tablet by mouth once daily. - atorvastatin (LIPITOR) 10 mg tablet Take 10 mg by mouth once daily. - albuterol HFA (PROAIR HFA) 90 mcg/actuation inhaler Inhale 2 Puffs as instructed every 6 hours as needed. - aspirin 81 mg cap Take 81 mg by mouth once daily. Takes periodically. Does Not take everyday. - VIT E ACETATE/VIT BCOMPANDC/ZINC (ZINC WITH VITAMINS ORAL) Take 1 capsule by mouth once daily. I have interviewed and examined the patient. I have reviewed the medical record and/or the pre-anesthesia evaluation, pertinent labs, and test results. This contains updated information obtained within 48 hours of Surgery/Procedure. SIGNATURE: Carlos Marc MD PATIENT NAME: Edmundo Henao DATE: July 05, 2022 TIME: 7:22 AM CSN: [id number] [facility] BRIEF OP NOTon 07-05-2022 BRIEF OP NOT HNO ID: [id number] Author: Willis Gabriel MD Service: General Surgery Author Type: Resident Type: Brief Op Note Filed: 07/05/2022 8:14 AM Note Text: BRIEF OPERATIVE / PROCEDURE NOTE LOG ID: [id number] SURGERY/PROCEDURE DATE: 07/05/2022 INCISION/PROCEDURE START TIME: 7:40 AM INCISION CLOSE/PROCEDURE END TIME: 8:11 AM SURGEON(S)/PROCEDURALIST(S ) AND MARKETING PROGRAMS SPECIALIST(S): Surgeon(s) and Role: * Ulices Greer MD - Primary * Willis Gabriel MD - Assisting No Additional Staff SURGERY/PROCEDURE(S): Open primary umbilical herniorrhaphy ANESTHESIA: General FINDINGS: Fat containing umbilical hernia closed with figure of 8 Surgilons ESTIMATED BLOOD LOSS: 10 mls SPECIMENS: * No specimens in log * COMPLICATIONS: None CLOSURE TECHNIQUE: Primary PRE-OP/PRE-PROCEDURE DIAGNOSIS: Umbilical hernia POST-OP/POST-PROCEDURE DIAGNOSIS: Same as Preop SIGNATURE: Willis Gabriel MD PATIENT NAME: Edmundo Henao DATE: July 05, 2022 TIME: 8:12 AM [facility] OPERATIVE NOon 07-05-2022 OPERATIVE NO HNO ID: [id number] Author: Ulices Greer MD Service: General Surgery Author Type: Physician Type: Operative Report Filed: 07/07/2022 8:48 AM Note Text: [facility] - Operative Report [id number] [address] [place] EDMUNDO HENAO : 1955 AGE: 67. SEX: M PATIENT TYPE: A HOSP SVC: GNS LOCATION: [id number] ATTENDING PHYSICIAN: Ulices Greer M.D. [facility] NUMBER: [id number] DATE OF SURGERY/PROCEDURE: 07/05/2022 INCISION/PROCEDURE START TIME: 7:40 AM INCISION CLOSE/PROCEDURE END TIME: 8:11 AM PREOPERATIVE DIAGNOSIS: Umbilical hernia. POSTOPERATIVE DIAGNOSIS: A 1.5 cm umbilical hernia. SURGEON: Ulices Greer M.D. MARKETING PROGRAMS SPECIALIST: Dr. Willis Gabriel. SURGERY/PROCEDURE: Open primary umbilical hernia repair. ANESTHESIA: General. FLUIDS: 1 L LR. ESTIMATED BLOOD LOSS: Minimal. COMPLICATIONS: None. INDICATIONS FOR PROCEDURE: This is a 67-year-old gentleman with a symptomatic umbilical hernia. The risks, benefits, alternatives and expected outcomes of open primary umbilical hernia repair were discussed with him in detail. He understood and wished to proceed. DESCRIPTION OF PROCEDURE: The patient was identified, brought to the operating room, and placed in supine position. After general endotracheal anesthesia was administered and all appropriate padding secured to the table, he was prepped and draped in the usual sterile fashion. Preoperative antibiotics and SCDs were applied. We then began with an infraumbilical incision, dissected off the umbilical hernia stalk, reduced the defect, then freed off the fascial edges. There is about a 1.5 x 1 cm defect. We then closed it with 3-0 Surgilon interrupted figure-of- eights and then a running suture on top of that. It came together quite nicely with minimal tension. No mesh was placed. The umbilical stalk was tacked back down and the wound was closed in layers. The patient was awoken from anesthesia and taken to the recovery room in stable condition. Please note, Dr. Ulices Greer, the attending surgeon was present and scrubbed for the entire procedure. Ulices Greer M.D. MR:[id number] /[id number] [facility] CNOVon 06-27-2022 CNOV Office Visit ([facility] ) -- EDMUNDO HENAO ([id number]) 1955 M NF Date Time Provider Department 06/27/22 10:00 AM ULICES GREER During your visit today, we recorded the following information about you: Temperature Pulse Respiration Blood pressure 97.2 degrees 82/minute 12/minute 146/98 Weight Height 104.3 kg 1.854 m Sonunoel Soliz 06/27/2022 9:59 AM Addendum What is the reason for your visit today? Consult Who is your referring physician? self Are you having poor oral intake? NO Have you had unintentional weight loss of 15 lbs/7 Kg in the last 3-6 months? NO Bowels: regular or constipation Wound: clean AND dry Temperature: No Drains: No Lola Pleitez MD 06/27/2022 1:19 PM Signed [facility] Abdominal [facility] - HISTORY AND PHYSICAL Chief Complaint: Umbilical hernia HPI: Edmundo Henao is a 67 year old male who presents with umbilical hernia. 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 Physical findings of this patient are as follows (COMPLETE 10 INCLUDING HEART AND LUNG EXAM OR CHOOSE NORMAL EXAM IF APPROPRIATE): Physical Exam Physical Exam Constitutional: The patient is well-developed, well-nourished, and in no distress. Head: Normocephalic and atraumatic. Eyes: Pupils are equal, round, and reactive to light. EOM are normal. Neck: Normal range (more content not included)... Normal [facility] Gutierrez Basophil percentageOrdered B y: Yakelin Erickson on 06-06-2022 Bilirubin [Mass/Vol] 0.80 mg/dL 0.20-1.00 [facility] Comment on above: For patients on eltr ombopag therapy, use of Dimension [place] TBIL is not recommended. Cholesterol [Mass/Vol] 160 mg/dL <200 [facility] Comment on above: <200 mg/dL Desirable 200-240 mg/dL Borderline >240 mg/dL High Risk Protein [Mass/Vol] 6.9 g/dL 6.4-8.2 [facility] Triglyceride [Mass/Vol] 143 mg/dL <199 [facility] Comment on above: The drugs N-Acetylcy steine and Metamizole may falsely depress this assay.Serum Triglycerides Reference Interval Normal <150 mg/dL Borderline high 150 - 199 mg/dL High 200 - 499 mg/dL Very High > or = 500 mg/dL Direct bilirubinOrdered By: Yakelin Erickson on 06-06-2022 Bilirubin.direct [Mass/Vol] 0.18 mg/dL 0.00-0.30 [facility] Laboratory - Chemistry and C hemistry - challengeOrdered By: Yakelin Erickson on 06-06-2022 ALP [Catalytic activity/Vol] 115 U/L 45-117 [facility] ALT [Catalytic activity/Vol] 31 U/L 16-61 [facility] Globulin (S) [Mass/Vol] 3.4 g/dL 2.2-4.2 [facility] Serum or plasma albumin david urement (mass/volume)Ordered By: Yakelin Erickson on 06-06-2022 Albumin [Mass/Vol] 3.5 g/dL 3.2-5.0 [facility] Serum or plasma cholesterol in HDL measurement (mass/volume)Ordered By: Yakelin Ericskon on 06-06-2022 Cholesterol in HDL [Mass/Vol] 35 mg/dL >40 [facility] Comment on above: The drugs N-Acetylcy steine and Metamizole may falsely depress this assay. Reference Range HDL <40 mg/dL Low HDL Cholesterol HDL >or= 60 mg/dL High HDL Cholesterol Serum or plasma cholesterol in VLDL measurement (mass/volume)Ordered By: Yakelin Erickson on 06-06-2022 Cholesterol in VLDL [Mass/Vol] 29 mg/dL 5-40 [facility] Serum or plasma low density lipoprotein (LDL) cholesterol measurement (mass/volume)Ordered By: Yakelin Erickson on 06-06-2022 Cholesterol in LDL [Mass/Vol] 96 mg/dL 0-130 [facility] Thin prep Papanicolaou smear with manual screeningOrdered By: Yakelin Erickson on 06-06-2022 Thin prep Papanicolaou smear with manual screening 20 U/L 15-37 [facility] CNPNon 06-05-2022 CNPN Telephone ([facility]) -- EDMUNDO HENAO ([id number]) 1955 M NFR Date Time Provider Department [facility] visit today, we recorded the following information about you: Hoa Quinn APRN.CNP 06/05/2022 8:18 AM Signed Please notify of negative covid test. Continue comfort measures for symptoms as you would for a cold. Any worsening symptoms follow up with PCP or ER. DAISHA Rahman MA 06/05/2022 8:36 AM Signed Patient notified of results, verbalized understanding of instructions given. Rubi Spence MA Allergies As of Date: 06/05/2022 Noted Allergy Reaction AMPICILLIN 11/16/2005 2 - Rash NIACIN 11/16/2005 2 - Rash Comments: bladder irritation with frequency STATINS ([id number] REDUCTAS*11/16/2005 14 - Other: See Comments Comments: Ocular retinitis from Crestor Date Reviewed: 06/04/2022 Reviewed by: Ellyn Saleem LPN - Fully Assessed Reason for Visit: Results [95] Prescriptions as of 06/05/2022 - albuterol HFA (PROAIR HFA) 90 mcg/actuation inhaler Inhale 2 Puffs as instructed every 6 hours as needed. - losartan (COZAAR) 25 mg tablet Take 25 mg by mouth once daily. - finasteride (PROSCAR) 5 mg tablet Take 5 mg by mouth once daily. - amLODIPine (NORVASC) 5 mg tablet Take 1 tablet by mouth once daily. - aspirin 81 mg cap Take 81 mg by mouth once daily. Takes periodically. Does Not take everyday. - atorvastatin (LIPITOR) 10 mg tablet Take 10 mg by mouth once daily. - VIT E ACETATE/VIT BCOMPANDC/ZINC (ZINC WITH VITAMINS ORAL) Take 1 capsule by mouth once daily. Meds Comments as of 10/19/2017: 10/19/17- Advil, lipitor, ASA PRN and losartan only. 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 BPH with obstruction/lower urinary tract sympto*03/17/2014 Gross hematuria [R31.0] 10/19/2017 Complicated UTI (urinary tract infection) [N39.*05/02/2021 Hypertension [I10] 05/02/2021 Sepsis (HCC) [A41.9] 05/02/2021 07/18/2021 Prostatitis [N41.9] 05/02/2021 Bacteremia due to Gram-negative bacteria [R78.8*05/03/2021 Pain of right upper extremity [M79.601] 05/03/2021 Obesity, Class I, BMI 30-34.9 [E66.9] 05/08/2021 Encounter Status:Closed by RUBI SPENCE on 06/05/22 [facility] CNOVon 06-04-2022 CNOV Office Visit ([facility] ) -- EDMUNDO HENAO ([id number]) 1955 M NFR Date Time Provider Department 06/04/22 9:15 AM JORDIN GARCIA [facility] During your visit today, we recorded the following information about you: Temperature Pulse Respiration Blood pressure 98.8 degrees 85/minute 16/minute 130/78 Weight 105.6 kg Jordin Garcia MD 06/04/2022 3:05 PM Signed Patient presents with: Cough: Pt reported cough [...] 2019 CORONAVIRUS 3. Coronary artery disease involving [place] coronary artery of [place] heart without angina pectoris - ICD9: 414.01, ICD10: I25.10 Reviewed vague fatigue has been atypical presentation for a coronary event. This does not feel like his past angina. He will watch for concerning symptoms and seek evaluation if worsening. Pain with massage is reassuring sign for musculoskeletal upper back pain. Jordin Garcia MD Allergies As of Date: 06/04/2022 Noted Allergy Reaction AMPICILLIN 11/16/2005 2 - Rash NIACIN 11/16/2005 2 - Rash Comments: bladder irritation with frequency STATINS (IISFRFG-[id number]-UDN REDUCTAS*11/16/2005 14 - Other: See Comments Comments: Ocular retinitis from Crestor Date Reviewed: 06/04/2022 Reviewed by: Ellyn Saleem LPN - Fully Assessed Reason for Visit: Cough [28] Cmt: Pt reported cough x2 wks, fatigue. Primary Visit Diagnosis:Subacute cough [R05.2] Other Visit Diagnoses:Fatigue, unspecified type [R53.83] Coronary artery disease involving [place] coronary artery of [place] heart without angina pectoris [I25.10] Order(s):XR CHEST 2V FRONTAL/LAT [[id number]] Order #: [id number] FUTURE 2019 CORONAVIRUS [SQCOVID] Order #: [id number]. #:[id number] Prescriptions as of 06/04/2022 - albuterol HFA (PROAIR HFA) 90 mcg/actuation inhaler Inhale 2 Puffs as instructed every 6 hours as needed. - losartan (COZAAR) 25 mg tablet Take 25 mg by mouth once daily. - finasteride (PROSCAR) 5 mg tablet Take 5 mg by mouth once daily. - amLODIPine (NORVASC) 5 mg tablet Take 1 tablet by mouth once daily. - aspirin 81 mg cap Take 81 mg by mouth once daily. Takes periodically. Does Not take everyday. - atorvastatin (LIPITOR) 10 mg tablet Take 10 mg by mouth once daily. - VIT E ACETATE/VIT BCOMPANDC/ZINC (ZINC WITH VITAMINS ORAL) Take 1 capsule by mouth once daily. Meds Comments as of 10/19/2017: 10/19/17- Advil, lipitor, ASA PRN and losartan only. 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 [facility] SARS-CoV-2 RNA Resp Ql KOSTAS+p robeon 06-04-2022 SARS-CoV-2 (COVID-19) RNA KOSTAS+probe Ql (Resp) COVID 19 RESULT: Not detected The method used is RT-PCR or an equivalent NAAT method. Reference Range (the expected result in uninfected individuals): Not detected [facility] Comment on above: Performed By: #### 9 [id number] ####[facility] LABCLIA [id number] [place] [address] [place] XR CHEST 2V FRONTAL/LATon XR CHEST 2V FRONTAL/LAT * * *Final Report* * * DATE OF EXAM: Jun 04 2022 9:54AM WOX [id number] - XR CHEST 2V FRONTAL/LAT / PROCEDURE REASON: multiple diagnoses * * * * Physician Interpretation * * * * EXAMINATION: CHEST RADIOGRAPH (2 VIEW FRONTAL and LATERAL) CLINICAL HISTORY: Subacute cough Fatigue, unspecified type MQ: XC2_6 EXAM DATE/TIME: 06/04/2022 9:54 AM COMPARISON: Chest radiograph dated 01/05/2022 RESULT: Lines, tubes, and devices: None. Lungs and pleura: Mild increased interstitial markings bilaterally. No focal lung consolidation. No significant pleural effusion or pneumothorax. Cardiomediastinal silhouette: Stable cardiomediastinal silhouette. Descending thoracic aorta. Median sternotomy. Bones and soft tissues: Degenerative changes are present within the thoracic spine. IMPRESSION: Stable exam with no acute radiographic abnormality. [employer] Consultant: [facility] Transcribe Date/Time: Jun 04 2022 10:00A Dictated by : SYDNEY LONGORIA MD This examination was interpreted and the report reviewed and electronically signed by: SYDNEY LONGORIA MD on Jun 04 2022 10:01AM EST [id number] [facility] XR Chest PA and Lateralon IMPRESSION: Stable exam with no acute radiographic abnormality. [employer] Consultant: [facility] Transcribe Date/Time: Jun 04 2022 10:00A Dictated by : SYDNEY LONGORIA MD This examination was interpreted and the report reviewed and electronically signed by: SYDNEY LONGORIA MD on Jun 04 2022 10:01AM EST DIVISION OF RADIOLOGY * * *Final Report* * * DATE OF EXAM: Jun 04 2022 9:54AM WOX [id number] - XR CHEST 2V FRONTAL/LAT / PROCEDURE REASON: multiple diagnoses * * * * Physician Interpretation * * * * EXAMINATION: CHEST RADIOGRAPH (2 VIEW FRONTAL & LATERAL) CLINICAL HISTORY: Subacute cough Fatigue, unspecified type MQ: XC2_6 EXAM DATE/TIME: 06/04/2022 9:54 AM COMPARISON: Chest radiograph dated 01/05/2022 RESULT: Lines, tubes, and devices: None. Lungs and pleura: Mild increased interstitial markings bilaterally. No focal lung consolidation. No significant pleural effusion or pneumothorax. Cardiomediastinal silhouette: Stable cardiomediastinal silhouette. Descending thoracic aorta. Median sternotomy. Bones and soft tissues: Degenerative changes are present within the thoracic spine. DIVISION OF RADIOLOGY Provider, Raul Resendiz - 06/04/2022 * * *Final Report* * * DATE OF EXAM: Jun 04 2022 9:54AM WOX [id number] - XR CHEST 2V FRONTAL/LAT / PROCEDURE REASON: multiple diagnoses * * * * Physician Interpretation * * * * EXAMINATION: CHEST RADIOGRAPH (2 VIEW FRONTAL & LATERAL) CLINICAL HISTORY: Subacute cough Fatigue, unspecified type MQ: XC2_6 EXAM DATE/TIME: 06/04/2022 9:54 AM COMPARISON: Chest radiograph dated 01/05/2022 RESULT: Lines, tubes, and devices: None. Lungs and pleura: Mild increased interstitial markings bilaterally. No focal lung consolidation. No significant pleural effusion or pneumothorax. Cardiomediastinal silhouette: Stable cardiomediastinal silhouette. Descending thoracic aorta. Median sternotomy. Bones and soft tissues: Degenerative changes are present within the thoracic spine. IMPRESSION IMPRESSION: Stable exam with no acute radiographic abnormality. [employer] Consultant: MAIKEL Transcribe Date/Time: Jun 04 2022 10:00A Dictated by : SYDNEY LONGORIA MD This examination was interpreted and the report reviewed and electronically signed by: SYDNEY LONGORIA MD on Jun 04 2022 10:01AM EST [facility] Radiology Study observation (narrative) [facility] XR Chest PA and LateralOrder ed By: Ccf Provider on 06-04-2022 [facility] EDMUNDO HENAO ([id number]) 1955 M NFR Date Time Provider Department 01/06/22 AYE KUMAR [facility] During your visit today, we recorded the following information about you: Aye Kumar APRN.CNP 01/06/2022 7:19 AM Signed Negative for flu and covid please notify thank you China Rosas LPN 01/06/2022 9:04 AM Signed Patient notified.China Rosas LPN Allergies As of Date: 01/06/2022 Noted Allergy Reaction AMPICILLIN 11/16/2005 2 - Rash NIACIN 11/16/2005 2 - Rash Comments: bladder irritation with frequency STATINS ([id number]-[id number]-IKY REDUCTAS*11/16/2005 14 - Other: See Comments Comments: Ocular retinitis from Crestor Date Reviewed: 01/05/2022 Reviewed by: Hitesh Blair APRN.CONSTRUCTION ELECTRICIAN - Fully Assessed Reason for Visit: Results [95] Prescriptions as of 01/06/2022 - predniSONE (DELTASONE) 10 mg tablet Take 4 tablets by mouth once daily for 3 days. - benzonatate (TESSALON PERLES) 100 mg capsule Take 1 capsule by mouth three times daily as needed for cough. - albuterol HFA (PROAIR HFA) 90 mcg/actuation inhaler Inhale 2 Puffs as instructed every 6 hours as needed. - losartan (COZAAR) 25 mg tablet Take 25 mg by mouth once daily. - finasteride (PROSCAR) 5 mg tablet Take 5 mg by mouth once daily. - amLODIPine (NORVASC) 5 mg tablet Take 1 tablet by mouth once daily. - aspirin 81 mg cap Take 81 mg by mouth once daily. Takes periodically. Does Not take everyday. - atorvastatin (LIPITOR) 10 mg tablet Take 10 mg by mouth once daily. - VIT E ACETATE/VIT BCOMPANDC/ZINC (ZINC WITH VITAMINS ORAL) Take 1 capsule by mouth once daily. Meds Comments as of 10/19/2017: 10/19/17- Advil, lipitor, ASA PRN and losartan only. 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 BPH with obstruction/lower urinary tract sympto*03/17/2014 Gross hematuria [R31.0] 10/19/2017 Complicated UTI (urinary tract infection) [N39.*05/02/2021 Hypertension [I10] 05/02/2021 Sepsis (HCC) [A41.9] 05/02/2021 07/18/2021 Prostatitis [N41.9] 05/02/2021 Bacteremia due to Gram-negative bacteria [R78.8*05/03/2021 Pain of right upper extremity [M79.601] 05/03/2021 Obesity, Class I, BMI 30-34.9 [E66.9] 05/08/2021 Encounter Status:Closed by CHINA ROSAS LPN on 01/06/22 [facility] CNOVon 01-05-2022 CNOV Office Visit ([facility] ) -- EDMUNDO HENAO ([id number]) 1955 M NFR Date Time Provider Department 01/05/22 7:45 AM HITESH BLAIR [facility] During your visit today, we recorded the following information about you: Temperature Pulse Respiration Blood pressure 98 degrees 95/minute 18/minute 138/82 Hitesh Blair APRN.CONSTRUCTION ELECTRICIAN 01/05/2022 8:55 AM Signed Subjective HPI Nontoxic-appearing male presents urgent care [...] SURGERY PROCEDURE ALLERGIES Ampicillin, Niacin, and Statins [Yiafpzw-Hjy-Ars Reductase Inhibitors] MEDICATIONS losartan (COZAAR) 25 mg [...] motion and neck supple. No rigidity or tendern (more content not included)... [facility] XR CHEST 2V FRONTAL/LATon XR CHEST 2V FRONTAL/LAT * * *Final Report* * * DATE OF EXAM: Jan 05 2022 8:32AM WOX [id number] - XR CHEST 2V FRONTAL/LAT / PROCEDURE REASON: Acute cough * * * * Physician Interpretation * * * * EXAMINATION: CHEST RADIOGRAPH (2 VIEW FRONTAL and LATERAL) CLINICAL HISTORY: Acute cough MQ: XC2_6 EXAM DATE/TIME: 01/05/2022 8:32 AM COMPARISON: No relevant prior studies available. RESULT: Lines, tubes, and devices: None. Lungs and pleura: No consolidation. Calcified granuloma in the right upper lung zone. No pleural effusion. No pneumothorax. Cardiomediastinal silhouette: Heart is normal in size. Aorta tortuous. Status post median sternotomy. Bones and soft tissues: Degenerative changes are present within the thoracic spine. IMPRESSION: No acute radiographic abnormality. [employer] Consultant: MAIKEL Transcribe Date/Time: Jan 05 2022 8:34A Dictated by : FILIPPO ZAPATA MD This examination was interpreted and the report reviewed and electronically signed by: FILIPPO ZAPATA MD on Jan 05 2022 8:39AM EST [id number] Normal [facility] XR Chest PA and Lateralon IMPRESSION: No acute radiographic abnormality. [employer] Consultant: MAIKEL Transcribe Date/Time: Jan 05 2022 8:34A Dictated by : FILIPPO ZAPATA MD This examination was interpreted and the report reviewed and electronically signed by: FILIPPO ZPAATA MD on Jan 05 2022 8:39AM [facility] DIVISION OF RADIOLOGY * * *Final Report* * * DATE OF EXAM: Jan 05 2022 8:32AM WOX 5291 - XR CHEST 2V FRONTAL/LAT / PROCEDURE REASON: Acute cough * * * * Physician Interpretation * * * * EXAMINATION: CHEST RADIOGRAPH (2 VIEW FRONTAL & LATERAL) CLINICAL HISTORY: Acute cough MQ: XC2_6 EXAM DATE/TIME: 01/05/2022 8:32 AM COMPARISON: No relevant prior studies available. RESULT: Lines, tubes, and devices: None. Lungs and pleura: No consolidation. Calcified granuloma in the right upper lung zone. No pleural effusion. No pneumothorax. Cardiomediastinal silhouette: Heart is normal in size. Aorta tortuous. Status post median sternotomy. Bones and soft tissues: Degenerative changes are present within the thoracic spine. DIVISION OF RADIOLOGY Provider, [facility] - 01/05/2022 * * *Final Report* * * DATE OF EXAM: Jan 05 2022 8:32AM WOX 5291 - XR CHEST 2V FRONTAL/LAT / PROCEDURE REASON: Acute cough * * * * Physician Interpretation * * * * EXAMINATION: CHEST RADIOGRAPH (2 VIEW FRONTAL & LATERAL) CLINICAL HISTORY: Acute cough MQ: XC2_6 EXAM DATE/TIME: 01/05/2022 8:32 AM COMPARISON: No relevant prior studies available. RESULT: Lines, tubes, and devices: None. Lungs and pleura: No consolidation. Calcified granuloma in the right upper lung zone. No pleural effusion. No pneumothorax. Cardiomediastinal silhouette: Heart is normal in size. Aorta tortuous. Status post median sternotomy. Bones and soft tissues: Degenerative changes are present within the thoracic spine. IMPRESSION IMPRESSION: No acute radiographic abnormality. [employer] Consultant: MAIKEL Transcribe Date/Time: Jan 05 2022 8:34A Dictated by : FILIPPO ZAPATA MD This examination was interpreted and the report reviewed and electronically signed by: FILIPPO ZAPATA MD on Jan 05 2022 8:39AM EST [facility] Radiology Study observation (narrative) [facility] XR Chest PA and LateralOrder ed By: Ccf Provider on 01-05-2022 [facility] Basophil percentageon 2021 Bilirubin [Mass/Vol] 0.90 mg/dL 0.20-1.00 [facility] Work Phone: Comment on above: For patients on eltr ombopag therapy, use of Dimension [place] TBIL is not recommended. Cholesterol [Mass/Vol] 157 mg/dL <200 [facility] Work Phone: Comment on above: <200 mg/dL Desirable 200-240 mg/dL Borderline >240 mg/dL High Risk Protein [Mass/Vol] 6.5 g/dL 6.4-8.2 [facility] Work Phone: [phone] Triglyceride [Mass/Vol] 156 mg/dL <199 [facility] Work Phone: Comment on above: The drugs N-Acetylcy steine and Metamizole may falsely depress this assay.Serum Triglycerides Reference Interval Normal <150 mg/dL Borderline high 150 - 199 mg/dL High 200 - 499 mg/dL Very High > or = 500 mg/dL Direct bilirubinon 2 Bilirubin.direct [Mass/Vol] 0.22 mg/dL 0.00-0.30 [facility] Work Phone: [phone] Laboratory - Chemistry and C hemistry - challengeon 11-25-2021 ALP [Catalytic activity/Vol] 111 U/L 45-117 [facility] Work Phone: [phone] ALT [Catalytic activity/Vol] 34 U/L 16-61 [facility] Work Phone: [phone] Globulin (S) [Mass/Vol] 2.9 g/dL 2.2-4.2 [facility] Work Phone: [phone] Serum or plasma albumin david urement (mass/volume)on 11-25-2021 Albumin [Mass/Vol] 3.6 g/dL 3.2-5.0 [facility] Work Phone: [phone] Serum or plasma cholesterol in HDL measurement (mass/volume)on 11-25-2021 Cholesterol in HDL [Mass/Vol] 34 mg/dL >40 [facility] Work Phone: Comment on above: The drugs N-Acetylcy steine and Metamizole may falsely depress this assay. Reference Range HDL <40 mg/dL Low HDL Cholesterol HDL >or= 60 mg/dL High HDL Cholesterol Serum or plasma cholesterol in VLDL measurement (mass/volume)on 11-25-2021 Cholesterol in VLDL [Mass/Vol] 31 mg/dL 5-40 [facility] Work Phone: Serum or plasma low density lipoprotein (LDL) cholesterol measurement (mass/volume)on 11-25-2021 Cholesterol in LDL [Mass/Vol] 92 mg/dL 0-130 [facility] Work Phone: Thin prep Papanicolaou smear with manual screeningon 11-25-2021 Thin prep Papanicolaou smear with manual screening 23 U/L 15-37 [facility] Work Phone: No Panel Informationon 11-09 Prostate Specific Antigen Total 3.29 ng/mL 0.0-4.0 [facility] Work Phone: Comment on above: This test was perfor med using the TPSA assay method for [employer] chemistry system. Values obtained with differentassay methods cannot be used interchangably.When changing PSA assays in the course of monitoring apatient, additional sequential testing should be carriedout to confirm baseline values. CNOVon 10-22-2021 CNOV Office Visit (SHAYS ) -- EDMUNDO HENAO ([id number]) 1955 M NFR Date Time Provider Department 10/22/21 8:30 AM GIOVANY LAL During your visit today, we recorded the following information about you: Temperature Pulse Blood pressure Weight 97.1 degrees 87/minute 148/88 103.9 kg Height 1.854 m Giovany Lal III, MD 10/22/2021 9:09 AM Signed Subjective: Patient is status post a colonoscopy [...] ?C (97.1 ?F), height 185.4 cm (6' 1"), weight 103.9 kg (229 lb), SpO2 96 %. Abdomen is soft small reducible umbilical hernia is identified. Assessment: Tubular adenoma of the ascending colon, umbilical hernia Plan: Patient is going to come back and see me within 30 days when he noticed that he would like to have his umbilical hernia repaired. He will need another colonoscopy in 5 years. Referring Provider: GIOVANY LAL [[id number]] Allergies As of Date: 10/22/2021 Noted Allergy Reaction AMPICILLIN 11/16/2005 2 - Rash NIACIN 11/16/2005 2 - Rash Comments: bladder irritation with frequency STATINS ([id number] REDUCTAS*11/16/2005 14 - Other: See Comments Comments: Ocular retinitis from Crestor Date Reviewed: 10/22/2021 Reviewed by: Bridgett Menjivar LPN - Fully Assessed Reason for Visit: Follow Up [171] Cmt: Colonoscopy and would like umbilical hernia checked Primary Visit Diagnosis:Umbilical hernia without obstruction and without gangrene [K42.9] Prescriptions as of 10/22/2021 - losartan (COZAAR) 25 mg tablet Take 25 mg by mouth once daily. - finasteride (PROSCAR) 5 mg tablet Take 5 mg by mouth once daily. - amLODIPine (NORVASC) 5 mg tablet Take 1 tablet by mouth once daily. - aspirin 81 mg cap Take 81 mg by mouth once daily. Takes periodically. Does Not take everyday. - atorvastatin (LIPITOR) 10 mg tablet Take 10 mg by mouth once daily. - VIT E ACETATE/VIT BCOMPANDC/ZINC (ZINC WITH VITAMINS ORAL) Take 1 capsule by mouth once daily. Meds Comments as of 10/19/2017: 10/19/17- Advil, lipitor, ASA PRN and losartan only. 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 Gross hematuria [R31.0] 10/19/2017 Complicated UTI (urinary tract infection) [N39.*05/02/2021 Hypertension [I10] 05/02/2021 Sepsis (HCC) [A41.9] 05/02/2021 07/18/2021 Prostatitis [N41.9] 05/02/2021 Bacteremia due to Gram-negative bacteria [R78.8*05/03/2021 Pain of right upper extremity [M79.601] 05/03/2021 Obesity, Class I, BMI 30-34.9 [E66.9] 05/08/2021 Encounter Status:Closed by GIOVANY LAL on 10/22/21 Normal [facility] COLONOSCOPY SCREENINGon 09-0 [facility] Colonoscopyon 10-14-2021 Colonoscopy [facility] Gastrointestinal Endoscopy Patient Name: Edmundo Henao Procedure Date: 10/14/2021 10:07 AM Date of : 1955 Admit Type: Outpatient Age: 66 Gender: Male Note Status: Finalized Procedure: Colonoscopy Indications: Screening for colorectal malignant neoplasm Providers: Giovany Lal MD Patient Profile: This is a 66 year old male. Refer to note in patient chart for documentation of history and physical. Last Colonoscopy: August 2011. Referring Physician: Abril Louise (pa) (Referring ), Praveena Martinez (Referring ) Medicines: Fentanyl 100 micrograms IV, Midazolam 6 mg IV, Diphenhydramine 50 mg IV Complications: No immediate complications. Estimated blood loss: Minimal. Requesting Provider: Procedure: Pre-Anesthesia Assessment: - Prior to the procedure, a History and Physical was performed, and patient medications and allergies were reviewed. The patient's tolerance of previous anesthesia was also reviewed. The risks and benefits of the procedure and the sedation options and risks were discussed with the patient. All questions were answered, and informed consent was obtained. Prior Anticoagulants: The patient has taken no previous anticoagulant or antiplatelet agents except for aspirin. ASA Grade Assessment: II - A patient with mild systemic disease. After reviewing the risks and benefits, the patient was deemed in satisfactory condition to undergo the procedure. After I obtained informed consent, the scope was passed under direct vision. Throughout the procedure, the patient's blood pressure, pulse, and oxygen saturations were monitored continuously. The Colonoscope was introduced through the anus and advanced to the cecum, identified by appendiceal orifice and ileocecal valve. The colonoscopy was performed without difficulty. The patient tolerated the procedure well. The quality of the bowel preparation was adequate to identify polyps 6 mm and larger in size. The ileocecal valve, appendiceal orifice, and rectum were photographed. Moderate Sedation: The administration of moderate sedation was initiated at 10:14 AM. Findings: The perianal and digital rectal examinations were normal. A small polyp was found in the ascending colon. The polyp was sessile. The polyp was removed with a hot snare. Resection and retrieval were complete. Estimated blood loss was minimal. Multiple small and large-mouthed diverticula were found in the sigmoid colon. Non-bleeding internal hemorrhoids were found during retroflexion. The hemorrhoids were mild and small. The exam was otherwise without abnormality. Impression: - One small polyp in the ascending colon, removed with a hot snare. Resected and retrieved. - Diverticulosis in the sigmoid colon. - Non-bleeding internal hemorrhoids. - The examination was otherwise normal. Recommendation: - Patient has a contact number available for emergencies. The signs and symptoms of potential delayed complications were discussed with the patient. Return to normal activities tomorrow. Written discharge instructions were provided to the patient. - Resume previous diet. - Continue present medications. - Await pathology results. - Repeat colonoscopy in 3 - 5 years for surveillance. - Return to my office in 1 week. - Resume previous antiplatelet medication today at prior dose. Procedure Code(s): --- Professional --- 40812, Colonoscopy, flexible; with removal of tumor(s), polyp(s), or other lesion(s) by snare technique Diagnosis Code(s): --- Professional --- Z12.11, Encounter for screening for malignant neoplasm of colon K63.5, Polyp of colon K64.8, Other hemorrhoids K57.30, Diverticulosis of large intestine without perforation or abscess without bleeding CPT copyright 2019 [employer]. All rights reserved. The codes documented in this report are preliminary and upon hiv nurse review may be revised to meet current compliance requirements. Attending Participation: I personally performed the entire procedure. Scope In: 10:17:45 AM Scope Out: 10:33:18 AM MD Giovany Atkins MD 10/14/2021 10:36:29 AM This report has been signed electronically by Giovany Lal MD Number of Addenda: 0 Note Initiated On: 10/14/2021 10:07 AM Estimated Blood Loss: Estimated blood loss was minimal. Normal [facility] HISTORY PHYSICALon HISTORY PHYSICAL HNO ID: [id number] Author: Giovany Lal MD Service: General Surgery Author Type: Physician Type: HANDP Filed: 10/14/2021 10:13 AM Note Text: HISTORY AND PHYSICAL Edmundo Henao 1955 REFERRING PHYSICIAN: Praveena Martinez DO CHIEF COMPLAINT: Consult (colonoscopy, possible hernia) [...] and prostatitis. Patient follows with Dr. Praveena Martinez in primary care. Patient reports feeling well [...] W/VEIN AND ARTERY GRAFT 5 VEIN 2001 HERNIA REPAIR [...] this visit. ALLERGIES: Ampicillin, Niacin, and Statins [Omrcjox-Xlg-Myu Reductase Inhibitors] PERSONAL HISTORY: SOCIAL HISTORY Social [...] entered by the nurse and reviewed by fl Nursing Notes: Bridgett Menjivar LPN 09/01/2021 8:46 [...] patient denies a history of epilepsy/convulsions, denies headac (more content not included)... [facility] NURSING PROGon 10-14-2021 NURSING PRO HNO ID: [id number] Author: Jane Flores RN Service: ? Author Type: Registered Nurse Type: Nursing Progress Note Filed: 10/14/2021 11:35 AM Note Text: Abd much softer and appears to be much less distended. Pt states the pressure feeling is better. Still denies any pain, cramping or nausea. Jane Flores RN [facility] NURSING [facility] HNO ID: [id number] Author: Jane Flores RN Service: ? Author Type: Registered Nurse Type: Nursing Progress Note Filed: 10/14/2021 11:24 AM Note Text: Pt unable to pass any air rectally. Abd remains firm and distended. Back to bed on right side with warm blanket to abd to see if pt can move any air in that position. Jane Flores RN [facility] NURSING PRO HNO ID: [id number] Author: Jane Flores RN Service: ? Author Type: Registered Nurse Type: Nursing Progress Note Filed: 10/14/2021 11:17 AM Note Text: Pt's abd still distended and firm. Pt states feels pressure but denies cramping, pain or nausea. Tolerated snack and drink well. Ambulated to the restroom to see if he can pass some air and gas. at bedside. Jane Flores RN [facility] NURSING PROG HNO ID: [id number] Author: Jane Flores RN Service: ? Author Type: Registered Nurse Type: Nursing Progress Note Filed: 10/14/2021 11:16 AM Note Text: Pt received in PACU. Pt moderately drowsy, but arouses very easily. Denies cramping, pain or nausea. Abd distended and slightly firm. Jane Flores RN [facility] SURGICAL PATHOLOGYon 022 CASE REPORT [facility] Comment on above: Order Comment: Speci men Type: TISSUE SPECIMENOrdering Facility: [facility] Address: [address] [place] [address] Result Comment: Surg [facility] Pathology Report Case: [id number] Authorizing Provider: Giovany Lal MD Collected: 10/14/2021 10:25 AM Ordering Location: Ambulatory Surgery Received: 10/14/2021 03:17 PM Pathologist: Cathy Roper MD Specimen: ASCENDING COLON POLYP Performed By: #### S ####[facility] LABCLIA [id number] [address] FINAL DIAGNOSIS Normal [facility] Comment on above: Order Comment: Speci men Type: TISSUE SPECIMENOrdering Facility: [facility] Address: [address] [place] [address] Result Comment: Jeramy murray, ascending, polypectomy: - Tubular adenoma. AEB/kr 10/18/2021 Performed By: #### S ####[facility] LABCLIA [id number] [address] FINAL PERFORMING LAB Normal [facility] Comment on above: Order Comment: Speci men Type: TISSUE SPECIMENOrdering Facility: [facility] Address: [address] [place] [address] Result Comment: Diag nostic interpretation performed at [facility], [address] [place], [place] [id number] CLIA# [id number] [facility] Registered Nurse: Jarrell Munoz M.D. Performed By: #### S ####[facility] [id number] [address] [place]OSS DESCRIPTION Normal [facility] Comment on above: Order Comment: Speci men Type: TISSUE SPECIMENOrdering Facility: [facility] Address: [address] [place] [address] Result Comment: A. A SCENDING COLON POLYP Received in formalin are multiple pieces of tim, soft tissue aggregating to 1.6 x 0.3 x 0.2 cm. Totally submitted in one cassette. Gross [place] [address] TTN 10/14/2021 10:39 PM Performed By: #### S ####[facility] [id number] [address] OF [place] .GFRon 09-14-2021 GFR 99 ml/min/1.73sqm Normal [facility] ([place]) Comment on above: Result Comment: GFR Population mean for , Non- Americans Ages 20-29 = 116 mL/min/1.73 sq.m. Ages 30-39 = 107 mL/min/1.73 sq.m. Ages 40-49 = 99 mL/min/1.73 sq.m. Ages 50-59 = 93 mL/min/1.73 sq.m. Ages 60-69 = 85 mL/min/1.73 sq.m. Ages 70+ = 75 mL/min/1.73 sq.m. Chronic Kidney Disease: Less than 60 mL/min/1.73 square meters End Stage Renal Disease: Less than 15 mL/min/1.73 square meters Performed By: #### G FR, BMP #### [place] [address] [address] GFR Non- 82 ml/min/1.73sqm Normal [facility] ([place]) Comment on above: Result Comment: GFR Population mean for , Non- Americans Ages 20-29 = 116 mL/min/1.73 sq.m. Ages 30-39 = 107 mL/min/1.73 sq.m. Ages 40-49 = 99 mL/min/1.73 sq.m. Ages 50-59 = 93 mL/min/1.73 sq.m. Ages 60-69 = 85 mL/min/1.73 sq.m. Ages 70+ = 75 mL/min/1.73 sq.m. Chronic Kidney Disease: Less than 60 mL/min/1.73 square meters End Stage Renal Disease: Less than 15 mL/min/1.73 square meters Performed By: #### Ada ALCARAZ, BMP #### [address] [address] BMPon 09-14-2021 BUN/Creatinine Ratio 21 ratio Normal 7-[facility] Comment on above: Performed By: #### Ada ALCARAZ, BMP #### [address] [address] Calcium [Mass/Vol] 8.5 mg/dL Normal 8.4-10.2 [facility] ([place]) Comment on above: Performed By: #### Ada ALCARAZ, BMP #### [address] [address] Chloride [Moles/Vol] 107 mmol/L Normal 98-107 [facility] Comment on above: Performed By: #### Ada ALCARAZ, BMP #### [address] [address] CO2 [Moles/Vol] 29 mmol/L Normal 23-31 [facility] ([place]) Comment on above: Performed By: #### G , BMP #### [address] [address] Creatinine [Mass/Vol] 0.92 mg/dL Normal 0.70-1.30 [facility] ([place]) Comment on above: Performed By: #### Ada ALCARAZ, BMP #### [address] [address] Electrolyte Balance 9.0 mEq/L Normal 4.0-15.0 Counts include 234 beds at the [facility] ([place]) Comment on above: Performed By: #### G FR, BMP #### [address] [place], [place] [address] Glucose [Mass/Vol] 112 mg/dL Normal 80-115 [facility] ([place]) Comment on above: Performed By: #### G FR, BMP #### [address] [place], [place] [address] Potassium [Moles/Vol] 4.3 mmol/L Normal 3.5-5.1 [facility] ([place]) Comment on above: Performed By: #### G FR, BMP #### [address] [address] Sodium [Moles/Vol] 145 mmol/L Normal 136-145 [facility] ([place]) Comment on above: Performed By: #### G FR, BMP #### [address] [address] Urea nitrogen [Mass/Vol] 19 mg/dL High 7-18 [facility] ([place]) Comment on above: Performed By: #### G , BMP #### [address] [address] LABORATORYOrdered By: Hussain Boucher on 09-14-2021 Calcium [Mass/Vol] 8.5 mg/dL Invalid Interpretation Code 8.4 - 10.2 mg/dL AO ADM SS Chloride [Moles/Vol] 107 mmol/L Invalid Interpretation Code 98 - 107 mmol/L AO ADM SS CO2 [Moles/Vol] 29 mmol/L Invalid Interpretation Code 23 - 31 mmol/L AO ADM SS Creatinine [Mass/Vol] 0.92 mg/dL Invalid Interpretation Code 0.70 - 1.30 mg/dL AO ADM SS Electrolyte Balance 9.0 mEq/L Invalid Interpretation Code 4.0 - 15.0 mEq/L AO ADM SS Glucose [Mass/Vol] 112 mg/dL Invalid Interpretation Code 80 - 115 mg/dL AO ADM SS Potassium [Moles/Vol] 4.3 mmol/L Invalid Interpretation Code 3.5 - 5.1 mmol/L AO ADM SS Sodium [Moles/Vol] 145 mmol/L Invalid Interpretation Code 136 - 145 mmol/L AO ADM SS Urea nitrogen [Mass/Vol] 19 mg/dL Invalid Interpretation Code 7 - 18 mg/dL AO ADM SS Urea nitrogen/Creatinine [Mass ratio] 21 ratio Invalid Interpretation Code 7 - 27 ratio AO ADM SS LABORATORYOrdered By: SYSTEM SYSTEM on 09-14-2021 GFR 99 ml/min/1.73sqm Invalid Interpretation Code AO Chemistry S GFR Non- 82 ml/min/1.73sqm Invalid Interpretation Code AO Chemistry S CNOVon 09-01-2021 CNOV Office Visit (GENSWS ) -- HENAOEDMUNDO SARAVIA ([id number]) 1955 M NFR Date Time Provider Department 09/01/21 8:30 AM ABRIL LOUISE During your visit today, we recorded the following information about you: Temperature Pulse Blood pressure Weight 96.8 degrees 91/minute 114/76 103.9 kg Height 1.829 m Abril Louise PA-C 09/06/2021 11:39 AM Signed HISTORY AND PHYSICAL Edmundo E Juliano 1955 REFERRING PHYSICIAN: Praveena Martinez DO CHIEF COMPLAINT: Consult (colonoscopy, possible hernia) [...] and prostatitis. Patient follows with Dr. Praveena Martinez in primary care. Patient reports feeling well [...] this visit. ALLERGIES: Ampicillin, Niacin, and Statins [Vhhbwqf-Ctq-Qog Reductase Inhibitors] PERSONAL HISTORY: Social History Tobacco [...] patient notes kidney stones, notes urine infections, a (more content not included)... [facility] LABORATORYOrdered By: Chiara Bailey on 08-18-2021 Prostate specific Ag [Mass/Vol] 3.97 ng/mL Invalid Interpretation Code 0.00 - 4.00 ng/mL AO ADM SS Basophil percentageon 2021 Chloride [Moles/Vol] 106 mmol/L 98-107 [facility] Work Phone: Glucose [Mass/Vol] 124 mg/dL 74-106 [facility] Work Phone: Comment on above: Fasting Glucose resu lt from 100 to 125 mg/dL suggests IMPAIRED HOMEOSTASIS per A.D.A. criteria. Potassium [Moles/Vol] 3.9 mmol/L 3.5-5.1 [facility] Work Phone: Sodium [Moles/Vol] 140 mmol/L 136-145 [facility] Work Phone: Laboratory - Chemistry and C hemistry - challengeon 06-14-2021 CO2 [Moles/Vol] 28.0 mmol/L 21.0-32.0 [facility] Work Phone: Magnesium [Mass/Vol] 2.2 mg/dL 1.6-2.6 [facility] Work Phone: Urea nitrogen/Creatinine [Mass ratio] 20.3 mg/mg 10-20 [facility] Work Phone: No Panel Informationon 06-14 Estimated GFR (MDRD) Amer 97 mL/min >60 [facility] Work Phone: Comment on above: GFR Calc Estimated GFR (MDRD) Non-Af Amer 80 mL/min >60 [facility] Work Phone: Comment on above: Non- GFR Calc Serum or plasma calcium david urement (mass/volume)on 06-14-2021 Calcium [Mass/Vol] 8.5 mg/dL 8.5-10.1 [facility] Work Phone: Serum or plasma creatinine m easurement (mass/volume)on 06-14-2021 Creatinine [Mass/Vol] 0.99 mg/dL 0.70-1.30 [facility] Work Phone: Comment on above: The validity of the calculated GFR & GFRAA in patients over 70 years has not been determined. Clinical correlation is essential. Serum or plasma urea nitroge n measurement (mass/volume)on 06-14-2021 Urea nitrogen [Mass/Vol] 20 mg/dL 7-18 [facility] Work Phone: [phone] Thin prep Papanicolaou smear with manual screeningon 06-14-2021 Thin prep Papanicolaou smear with manual screening 6 5-15 [facility] Work Phone: Basophil percentageon 2021 Bilirubin [Mass/Vol] 0.50 mg/dL 0.20-1.00 [facility] Work Phone: Comment on above: For patients on eltr ombopag therapy, use of Dimension [place] TBIL is not recommended. Cholesterol [Mass/Vol] 170 mg/dL <200 [facility] Work Phone: [phone] Comment on above: <200 mg/dL Desirable 200-240 mg/dL Borderline >240 mg/dL High Risk Protein [Mass/Vol] 7.0 g/dL 6.4-8.2 [facility] Work Phone: [phone] Triglyceride [Mass/Vol] 106 mg/dL [facility] Work Phone: [phone] Comment on above: The drugs N-Acetylcy steine and Metamizole may falsely depress this assay.Serum Triglycerides Reference Interval Normal <150 mg/dL Borderline high 150 - 199 mg/dL High 200 - 499 mg/dL Very High > or = 500 mg/dL Direct bilirubinon 2 Bilirubin.direct [Mass/Vol] 0.19 mg/dL 0.00-0.30 [facility] Work Phone: [phone] Laboratory - Chemistry and C hemistry - challengeon 05-28-2021 ALP [Catalytic activity/Vol] 99 U/L 45-117 [facility] Work Phone: [phone] ALT [Catalytic activity/Vol] 38 U/L 16-61 [facility] Work Phone: [phone] Globulin (S) [Mass/Vol] 3.3 g/dL 2.2-4.2 [facility] Work Phone: [phone] Serum or plasma albumin david urement (mass/volume)on 05-28-2021 Albumin [Mass/Vol] 3.7 g/dL 3.2-5.0 [facility] Work Phone: [phone] Serum or plasma cholesterol in HDL measurement (mass/volume)on 05-28-2021 Cholesterol in HDL [Mass/Vol] 37 mg/dL [facility] Work Phone: [phone] Comment on above: The drugs N-Acetylcy steine and Metamizole may falsely depress this assay. Reference Range HDL <40 mg/dL Low HDL Cholesterol HDL >or= 60 mg/dL High HDL Cholesterol Serum or plasma cholesterol in VLDL measurement (mass/volume)on 05-28-2021 Cholesterol in VLDL [Mass/Vol] 21 mg/dL 5-40 [facility] Work Phone: Serum or plasma low density lipoprotein (LDL) cholesterol measurement (mass/volume)on 05-28-2021 Cholesterol in LDL [Mass/Vol] 112 mg/dL 0-130 [facility] Work Phone: Thin prep Papanicolaou smear with manual screeningon 05-28-2021 Thin prep Papanicolaou smear with manual screening 25 U/L 15-37 [facility] Work Phone: LABORATORYOrdered By: Hussain Boucher on 05-25-2021 Calcium [Mass/Vol] 8.7 mg/dL Invalid Interpretation Code 8.4 - 10.2 mg/dL AO ADM SS Chloride [Moles/Vol] 105 mmol/L Invalid Interpretation Code 98 - 107 mmol/L AO ADM SS CO2 [Moles/Vol] 28 mmol/L Invalid Interpretation Code 23 - 31 mmol/L AO ADM SS Creatinine [Mass/Vol] 1.06 mg/dL Invalid Interpretation Code 0.70 - 1.30 mg/dL AO ADM SS Electrolyte Balance 7.0 mEq/L Invalid Interpretation Code 4.0 - 15.0 mEq/L AO ADM SS Glucose [Mass/Vol] 104 mg/dL Invalid Interpretation Code 80 - 115 mg/dL AO ADM SS HbA1c (Bld) [Mass fraction] 5.5 % Invalid Interpretation Code 4.3 - 6.4 % AO ADM SS Potassium [Moles/Vol] 4.6 mmol/L Invalid Interpretation Code 3.5 - 5.1 mmol/L AO ADM SS Sodium [Moles/Vol] 140 mmol/L Invalid Interpretation Code 136 - 145 mmol/L AO ADM SS Urea nitrogen [Mass/Vol] 11 mg/dL Invalid Interpretation Code 7 - 18 mg/dL AO ADM SS Urea nitrogen/Creatinine [Mass ratio] 10 ratio Invalid Interpretation Code 7 - 27 ratio AO ADM SS LABORATORYOrdered By: SYSTEM SYSTEM on 05-25-2021 GFR 85 ml/min/1.73sqm Invalid Interpretation Code AO Chemistry S GFR Non- 70 ml/min/1.73sqm Invalid Interpretation Code AO Chemistry S LABORATORYOrdered By: Hussain Boucher on 05-18-2021 Calcium [Mass/Vol] 8.7 mg/dL Invalid Interpretation Code 8.4 - 10.2 mg/dL AO ADM SS Chloride [Moles/Vol] 103 mmol/L Invalid Interpretation Code 98 - 107 mmol/L AO ADM SS CO2 [Moles/Vol] 28 mmol/L Invalid Interpretation Code 23 - 31 mmol/L AO ADM SS Creatinine [Mass/Vol] 1.15 mg/dL Invalid Interpretation Code 0.70 - 1.30 mg/dL AO ADM SS Electrolyte Balance 8.0 mEq/L Invalid Interpretation Code 4.0 - 15.0 mEq/L AO ADM SS Glucose [Mass/Vol] 107 mg/dL Invalid Interpretation Code 80 - 115 mg/dL AO ADM SS Potassium [Moles/Vol] 4.7 mmol/L Invalid Interpretation Code 3.5 - 5.1 mmol/L AO ADM SS Sodium [Moles/Vol] 139 mmol/L Invalid Interpretation Code 136 - 145 mmol/L AO ADM SS Urea nitrogen [Mass/Vol] 12 mg/dL Invalid Interpretation Code 7 - 18 mg/dL AO ADM SS Urea nitrogen/Creatinine [Mass ratio] 10 ratio Invalid Interpretation Code 7 - 27 ratio AO ADM SS LABORATORYOrdered By: SYSTEM SYSTEM on 05-18-2021 GFR 77 ml/min/1.73sqm Invalid Interpretation Code AO Chemistry S GFR Non- 64 ml/min/1.73sqm Invalid Interpretation Code AO Chemistry S LABORATORYOrdered By: Hussain Boucher on 05-11-2021 Calcium [Mass/Vol] 8.8 mg/dL Invalid Interpretation Code 8.4 - 10.2 mg/dL AO ADM SS Chloride [Moles/Vol] 102 mmol/L Invalid Interpretation Code 98 - 107 mmol/L AO ADM SS CO2 [Moles/Vol] 28 mmol/L Invalid Interpretation Code 23 - 31 mmol/L AO ADM SS Creatinine [Mass/Vol] 1.40 mg/dL Invalid Interpretation Code 0.70 - 1.30 mg/dL AO ADM SS Electrolyte Balance 8.0 mEq/L Invalid Interpretation Code 4.0 - 15.0 mEq/L AO ADM SS Glucose [Mass/Vol] 112 mg/dL Invalid Interpretation Code 80 - 115 mg/dL AO ADM SS Potassium [Moles/Vol] 5.4 mmol/L Invalid Interpretation Code 3.5 - 5.1 mmol/L AO ADM SS Sodium [Moles/Vol] 138 mmol/L Invalid Interpretation Code 136 - 145 mmol/L AO ADM SS Urea nitrogen [Mass/Vol] 19 mg/dL Invalid Interpretation Code 7 - 18 mg/dL AO ADM SS Urea nitrogen/Creatinine [Mass ratio] 14 ratio Invalid Interpretation Code 7 - 27 ratio AO ADM SS LABORATORYOrdered By: SYSTEM SYSTEM on 05-11-2021 GFR 61 ml/min/1.73sqm Invalid Interpretation Code AO Chemistry S GFR Non- 51 ml/min/1.73sqm Invalid Interpretation Code AO Chemistry S CNCOon 05-10-2021 CNCO Letter Text Normal [facility] Basic metabolic 2000 panelon 05-07-2021 Anion gap [Moles/Vol] 16 mmol/L Normal 9-18 [facility] Comment on above: Order Comment: Speci men Type: BLOOD SPECIMENOrdering Facility: [facility] Address: [address] [place] [address] Performed By: #### 2 4321-2 ####[facility]ORATORYCLIA [id number] [place] [address] [place] Calcium [Mass/Vol] 9.1 mg/dL Normal 8.5-10.2 [facility] Comment on above: Order Comment: Speci men Type: BLOOD SPECIMENOrdering Facility: [facility] Address: [address] [place] [address] Performed By: #### 2 4321-2 ####[facility]ORATORYCLIA [id number] [place] [address] [place] Chloride [Moles/Vol] 102 mmol/L Normal 97-105 [facility] Comment on above: Order Comment: Speci men Type: BLOOD SPECIMENOrdering Facility: [facility] Address: [address] [address] Performed By: #### 2 4321-2 ####[facility]ORATORYCLIA [id number] [place] [address] [place] CO2 [Moles/Vol] 20 mmol/L Low 22-30 [facility] Comment on above: Order Comment: Speci men Type: BLOOD SPECIMENOrdering Facility: [facility] Address: [address] [address] Performed By: #### 2 4321-2 ####[facility]ORATORYCLIA [id number] [address] [facility] Creatinine [Mass/Vol] 1.03 mg/dL Normal 0.73-1.22 [facility] Comment on above: Order Comment: Jonathan chawla Type: BLOOD SPECIMENOrdering Facility: [facility] Address: [address] [address] Performed By: #### 2 4321-2 ####[facility]ORATORYCLIA [id number] [address] ESTIMATED GLOMERULAR FILTRATION RATE 80 mL/min/1.73m??? Normal >=60 [facility] Comment on above: Order Comment: Jonathan cammy Type: BLOOD SPECIMENOrdering Facility: [facility] Address: [address] [place] [address] Result Comment: Joceline mated Glomerular Filtration Rate (eGFR) is calculated using the 2020 CKD-EPI creatinine equation. This equation utilizes serum creatinine, sex, and age as parameters. The creatinine assay has traceable calibration to isotope dilution-mass spectrometry. Refer to KDIGO guidelines for clinical interpretation. In patients with unstable renal function, e.g. those with acute kidney injury, the eGFR may not accurately reflect actual GFR. Performed By: #### 2 4321-2 ####[facility]ORATORYCLIA [id number] [address] [place] Glucose [Mass/Vol] 111 mg/dL High 74-99 [facility] Comment on above: Order Comment: Jonathan cammy Type: BLOOD SPECIMENOrdering Facility: [facility] Address: [address] [place] [address] Result Comment: The [place] Diabetes [employer] (ADA) provides guidance for cutoff values for fasting glucose and random glucose. The ADA defines fasting as no caloric intake for at least 8 hours. Fasting plasma glucose results between 100 to 125 mg/dL indicate increased risk for diabetes (prediabetes). Fasting plasma glucose results greater than or equal to 126 mg/dL meet the criteria for diagnosis of diabetes. In the absence of unequivocal hyperglycemia, results should be confirmed by repeat testing. In a patient with classic symptoms of hyperglycemia or hyperglycemic crisis, random plasma glucose results greater than or equal to 200 mg/dL meet the criteria for diagnosis of diabetes. Reference: Standards of Medical Care in Diabetes 2016, [place] [employer]. Diabetes Care. 2016.39(Suppl 1). Performed By: #### 2 4321-2 ####[facility]ORATORYCLIA [id number] [address] Potassium [Moles/Vol] 4.5 mmol/L Normal 3.7-5.1 [facility] Comment on above: Order Comment: Speci men Type: BLOOD SPECIMENOrdering Facility: [facility] Address: [address] [place] [address] Performed By: #### 2 4321-2 ####[facility]ORATORYCLIA [id number] [address] Sodium [Moles/Vol] 138 mmol/L Normal 136-144 [facility] Comment on above: Order Comment: Jonathan chawla Type: BLOOD SPECIMENOrdering Facility: [facility] Address: [address] [place] [address] Performed By: #### 2 4321-2 ####[facility]ORATORYCLIA [id number] [address] STATES [facility] Urea nitrogen [Mass/Vol] 13 mg/dL Normal 9-24 [facility] Comment on above: Order Comment: Samanthai cammy Type: BLOOD SPECIMENOrdering Facility: [facility] Address: [address] [place] [address] Performed By: #### 2 4321-2 ####[facility] LABORATORYCLIA [id number] [address] [facility] CASE MANAGEMon 05-07-2021 CASE MANAGEM HNO ID: [id number] Author: Teresa Navarro RN Service: Case Management Author Type: Registered Nurse Type: Care Mgt Progress Note Filed: 05/07/2021 10:50 AM Note Text: CARE MANAGEMENT PROGRESS NOTE SERVICE DATE: 05/07/2021 SERVICE TIME: 10:44 AM LOS: 5 days Needs Prior to Discharge: Other: See Comment (medical clearance) Per ID plan for oral Bactrim x [address] May need [address] scan of ABD if fevers continue. Patient [employer] from home with spouse, dc plan remains to return on dc. SIGNATURE: Teresa Navarro RN PATIENT NAME: Edmundo Henao DATE: May 07, 2021 TIME: 10:43 AM PAGER/CONTACT #: [phone] Normal [facility] CBC panel Auto (Bld)on 05-07 Erythrocyte distribution width (RBC) [Ratio] 13.2 % Normal 11.5-15.0 [facility] Comment on above: Order Comment: Speci men Type: BLOOD SPECIMEN Ordering Facility: [facility] Address: [address] [place] [address] Performed By: #### 1 23-9, #### [facility] CLIA [id number] [address] Hematocrit (Bld) [Volume fraction] 46.0 % Normal 39.0-51.0 [facility] Comment on above: Order Comment: Samanthai men Type: BLOOD SPECIMEN Ordering Facility: [facility] Address: [address] [place] [address] Performed By: #### 1 23-9, #### [facility] CLIA [id number] [address] Hemoglobin (Bld) [Mass/Vol] 15.6 g/dL Normal 13.0-17.0 [facility] Comment on above: Order Comment: Speci men Type: BLOOD SPECIMEN Ordering Facility: [facility] Address: [address] [place] [address] Performed By: #### 1 23-9, 69908-7 #### [facility] CLIA [id number] [address] MCH (RBC) [Entitic mass] 30.2 pg Normal 26.0-34.0 [facility] Comment on above: Order Comment: Speci men Type: BLOOD SPECIMEN Ordering Facility: [facility] Address: [address] [place] [address] Performed By: #### 1 9123-9, #### [facility] CLIA [id number] [address] MCHC (RBC) [Mass/Vol] 33.9 g/dL Normal 30.5-36.0 [facility] Comment on above: Order Comment: Speci men Type: BLOOD SPECIMEN Ordering Facility: [facility] Address: [address] [place], [place] [address] Performed By: #### 1 9, 05959-8 #### [facility] CLIA [id number] [address] MCV (RBC) [Entitic vol] 89.0 fL Normal 80.0-100.0 [facility] Comment on above: Order Comment: Speci men Type: BLOOD SPECIMEN Ordering Facility: [facility] Address: [address] [place], [place] [address] Performed By: #### 1 9, 18712-7 #### [facility] CLIA [id number] [address] [place] Nucleated RBC (Bld) [#/Vol] 10*3/uL Normal <0.01 [facility] Comment on above: Order Comment: Speci men Type: BLOOD SPECIMEN Ordering Facility: [facility] Address: [address] [place], [place] [address] Performed By: #### 1 239, 29332-1 #### [facility] CLIA [id number] [address] Platelet mean volume (Bld) [Entitic vol] 9.8 fL Normal 9.0-12.7 [facility] Comment on above: Order Comment: Speci men Type: BLOOD SPECIMEN Ordering Facility: [facility] Address: [address] [place], [place] [address] Performed By: #### 1 239, 66458-2 #### [facility] CLIA [id number] [address] Platelets (Bld) [#/Vol] 160 10*3/uL Normal 150-400 [facility] Comment on above: Order Comment: Speci men Type: BLOOD SPECIMEN Ordering Facility: [facility] Address: [address] [place], [place] [address] Performed By: #### 1 239, 73752-2 #### [facility] CLIA [id number] [address] [place] [address] [place] RBC (Bld) [#/Vol] 5.17 10*6/uL Normal 4.20-6.00 [facility] Comment on above: Order Comment: Speci men Type: BLOOD SPECIMEN Ordering Facility: [facility] Address: [address] [place] [address] Performed By: #### 1 9123-9, 71416-6 #### [facility] CLIA [id number] [address] WBC (Bld) [#/Vol] 6.24 10*3/uL Normal 3.70-11.00 [facility] Comment on above: Order Comment: Speci men Type: BLOOD SPECIMEN Ordering Facility: [facility] Address: [address] [place] [address] Performed By: #### 1 9123-9, 24974-8 #### [facility] CLIA [id number] [address] CNDSon 05-07-2021 [facility]DS HNO ID: [id number] Author: Dominique Boucher DO Service: Hospital Medicine Author Type: Physician Type: Discharge Summary Filed: 05/08/2021 3:45 PM Note Text: DISCHARGE SUMMARY PATIENT NAME: Edmundo Henao ADMISSION DATE: 05/02/2021 DISCHARGE DATE: 05/07/2021 ATTENDING PHYSICIAN: No att. providers found Code Status: Not on file Highest Readmission Risk Score: 12 The 30 day readmissions risk score is derived from an internally validated risk model which evaluates patient level characteristics, utilization history, medication orders and lab results up until the day of discharge. Patients with a score of 40 or above are considered highest risk for readmission. Specific patient level drivers will be listed at the bottom of the summary. CONSULTING TEAMS DURING HOSPITALIZATION: Infectious Disease: Dr. Wild Hewitt Neurology: Dr. Spencer Surgery : Urology Treatment Team: Consulting: Wild Hewitt MD REASON FOR HOSPITALIZATION: urinary frequency, fever, chills, rigors, and urinary burning. 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 * Sepsis present and treated, Klebsiella oxytoca (list organism, if known) OPERATIONS DURING HOSPITALIZATION: None PROCEDURES DURING HOSPITALIZATION: EKG Discharge instructions: 1. Call Dr. Wild Hewitt (infectious disease) office for blood culture results 2. Follow up with Dr. Wild Hewitt (infectious disease) in one week 3. You will need to take bactrim (3 weeks total). Check BMP ones a week while on bactrim (antibioitc) as this can cause electrolyte abnormality and can cause injury to kidneys. Please ask your family doctor to order BMP (kidney function test) ones a week whle on Bactrim. 4. You are on Losartan (blood pressure medication) and Bactrim together can increase risk of Hyperkalemia (High Potassium levels). This was explained to you. Stop Losartan while on Bactrim. You can take Amlodipine 5 mg one tablet daily (new medication for blood pressure while on bactrim). Check your blood pressure daily and call your family doctor if blood pressure is above 130/80. Discuss this with your family doctor on Monday. 5. Follow up with your Urologist in one to two weeks of discharge 6. outpatient follow up with PCP for Left renal cyst 7. outpatient follow up with PCP Left lower lobe lung nodule 8. Neurology recommended outpatient spine clinic for MRI cervical spine which showed Degenerative changes in the cervical spine most notably at C5-6 where there is disc height loss and endplate hypertrophy causing moderate canal narrowing. There is moderate bilateral foraminal narrowing at this level as well. HOSPITAL COURSE: Edmundo Henao is a 65 year old male presented with past medical history of hypertension, coronary artery disease, CABG in 2002,?TURP on February 15, 2019, subsequently had gross hematuria?March 08 as well as March 24, 2019, history of DVT and PE?CT pulmonary angiogram on 03/25/2019?(s/p 3 months of Eliquis and IVC filter which was removed after 3 months), presented to ED with complaint of urinary frequency, fever, chills, rigors, and urinary burning. ? Active Problems: ?? Sepsis (HCC) --Resolved Bacteremia due to Klebsiella oxytoca Complicated UTI (urinary tract infection) Rule out?Prostatitis?with history of?BPH with obstruction/lower urinary tract symptoms -Noted to have elevated white count of 16.21, elevated heart rate, 90, temperature of 100.8, lactate of 1.8 on admission -Urine cx growing Klebsiella oxytoca -Blood cx is growing Klebsiella oxytoca -Follow up with repeat blood cx -PSA is 13.53 -no intervention per Urology -ID discontinued Ancef and started on oral Bactrim (closely monitor electrolytes) -noted fever overnight. Patient stated he passed small kidney stone yesterday -ID repeating blood cx today -Renal US showing Small nonobstructing calcifications in each kidney, Simple cysts in the LEFT kidney -Continue oral Bactrim DS x 3 weeks per ID -clear for discharge from ID stand point. ? Pain of right upper extremity -Complains of right UE pain and tingling ongoing for 3 months. -Describes pain as "shooting and burning" and concerned of cervical spine pathology. -He had outpatient EMG which showed carpel tunnel syndrome. -Neurology ordered MRI cervical spine which showed Degenerative changes in the cervical spine most notably at C5-6 where there is disc height loss and endplate hypertrophy causing moderate canal narrowing. ?There is moderate bilateral foraminal narrowing at this level as well. -Neurology recommended outpatient spine clin (more content not included)... Normal [facility] 05-06-2021 [facility] HNO ID: [id number] Author: RT Donnie(Mike) Service: Radiology Author Type: Technologist Type: Allied Health Filed: 05/06/2021 11:14 AM Note Text: Radiology Service Progress Note PATIENT NAME: Edmundo Henao DATE OF SERVICE: May 06, 2021 TIME: 11:14 AM PATIENT IDENTITY VERIFICATION COMPLETED USING TWO (2) IDENTIFIERS: Name and Date of confirmed by patient verbally. FALL SCREENING: Has the patient had 2 falls in the last year or 1 fall with injury or currently using an Ambulatory Assistive Device (Walker, Cane, Wheelchair, Crutches, etc.)? No PATIENT GENDER DATA: Male PATIENT RELEVANT IMPLANT DATA REVIEWED: Not Applicable RADIOLOGY DEPARTMENT: Ultrasound PERIPHERAL IV DATA: Not applicable SIGNED BY: RT Donnie(R) May 06, 2021 11:14 AM Normal [facility] Bacteria Bld Culton 05-07-19 22 Bacteria identified Cx Nom (Bld) CULTURE, BLOOD: No growth 5 days Normal [facility] Comment on above: Performed By: #### 6 00-7 ####[facility] LABCLIA [id number] [address] [id number] [address] [place] Basic metabolic 2000 panelon 05-06-2021 Anion gap [Moles/Vol] 9 mmol/L Normal 9-18 [facility] Comment on above: Order Comment: Speci men Type: BLOOD SPECIMENOrdering Facility: [facility] Address: [address] [place] [address] Performed By: #### 2 4321-2 ####[facility]ORATORYCLIA [id number] [place] [address] [place] Calcium [Mass/Vol] 8.7 mg/dL Normal 8.5-10.2 [facility] Comment on above: Order Comment: Speci men Type: BLOOD SPECIMENOrdering Facility: [facility] Address: [address] [place] [address] Performed By: #### 2 4321-2 ####[facility]ORATORYCLIA [id number] [place] [address] [place] Chloride [Moles/Vol] 102 mmol/L Normal 97-105 [facility] Comment on above: Order Comment: Speci men Type: BLOOD SPECIMENOrdering Facility: [facility] Address: [address] [address] Performed By: #### 2 4321-2 ####[facility]ORATORYCLIA [id number] [place] [address] [place] CO2 [Moles/Vol] 24 mmol/L Normal 22-30 [facility] Comment on above: Order Comment: Speci men Type: BLOOD SPECIMENOrdering Facility: [facility] Address: [address] [address] Performed By: #### 2 4321-2 ####[facility]ORATORYCLIA [id number] [address] [place] Creatinine [Mass/Vol] 1.05 mg/dL Normal 0.73-1.22 [facility] Comment on above: Order Comment: Jonathan cammy Type: BLOOD SPECIMENOrdering Facility: [facility] Address: [address] [address] Performed By: #### 2 4321-2 ####[facility]ORATORYCLIA [id number] [address] [place] ESTIMATED GLOMERULAR FILTRATION RATE 78 mL/min/1.73m??? Normal >=60 [facility] Comment on above: Order Comment: Samanthachema chawla Type: BLOOD SPECIMENOrdering Facility: [facility] Address: [address] [place] [address] Result Comment: Joceline mated Glomerular Filtration Rate (eGFR) is calculated using the 2020 CKD-EPI creatinine equation. This equation utilizes serum creatinine, sex, and age as parameters. The creatinine assay has traceable calibration to isotope dilution-mass spectrometry. Refer to KDIGO guidelines for clinical interpretation. In patients with unstable renal function, e.g. those with acute kidney injury, the eGFR may not accurately reflect actual GFR. Performed By: #### 2 4321-2 ####[place] LABORATORYCLIA [id number] [address] [place] Glucose [Mass/Vol] 119 mg/dL High 74-99 [facility] Comment on above: Order Comment: Samanthachema chawla Type: BLOOD SPECIMENOrdering Facility: [facility] Address: [address] [place] [address] Result Comment: The [place] Diabetes Association (ADA) provides guidance for cutoff values for fasting glucose and random glucose. The ADA defines fasting as no caloric intake for at least 8 hours. Fasting plasma glucose results between 100 to 125 mg/dL indicate increased risk for diabetes (prediabetes). Fasting plasma glucose results greater than or equal to 126 mg/dL meet the criteria for diagnosis of diabetes. In the absence of unequivocal hyperglycemia, results should be confirmed by repeat testing. In a patient with classic symptoms of hyperglycemia or hyperglycemic crisis, random plasma glucose results greater than or equal to 200 mg/dL meet the criteria for diagnosis of diabetes. Reference: Standards of Medical Care in Diabetes 2016, [place] [employer]. Diabetes Care. 2016.39(Suppl 1). Performed By: #### 2 4321-2 ####[facility] LABORATORYCLIA [id number] [address] [place] Potassium [Moles/Vol] 4.6 mmol/L Normal 3.7-5.1 [facility] Comment on above: Order Comment: Speci men Type: BLOOD SPECIMENOrdering Facility: [facility] Address: [address] [place] [address] Performed By: #### 2 4321-2 ####[facility] LABORATORYCLIA [id number] [address] [place] Sodium [Moles/Vol] 135 mmol/L Low 136-144 [facility] Comment on above: Order Comment: Speci men Type: BLOOD SPECIMENOrdering Facility: [facility] Address: [address] [place] [address] Performed By: #### 2 4321-2 ####[facility] LABORATORYCLIA [id number] [address] [place] [facility] Urea nitrogen [Mass/Vol] 10 mg/dL Normal 9-24 [facility] Comment on above: Order Comment: Speci men Type: BLOOD SPECIMENOrdering Facility: [facility] Address: [address] [place] [address] Performed By: #### 2 4321-2 ####[facility] LABORATORYCLIA [id number] [address] [place] [facility] CBC panel Auto (Bld)on 05-06 Erythrocyte distribution width (RBC) [Ratio] 13.1 % Normal 11.5-15.0 [facility] Comment on above: Order Comment: Speci men Type: BLOOD SPECIMENOrdering Facility: [facility] Address: [address] [place] [address] Performed By: #### 5 8410-2 ####[facility] LABORATORYCLIA [id number] [address] Hematocrit (Bld) [Volume fraction] 42.4 % Normal 39.0-51.0 [facility] Comment on above: Order Comment: Speci men Type: BLOOD SPECIMENOrdering Facility: [facility] Address: [address] [place] [address] Performed By: #### 5 8410-2 ####[facility]ORATORYCLIA [id number] [address] Hemoglobin (Bld) [Mass/Vol] 14.5 g/dL Normal 13.0-17.0 [facility] Comment on above: Order Comment: Speci men Type: BLOOD SPECIMENOrdering Facility: [facility] Address: [address] [place] [address] Performed By: #### 5 8410-2 ####[facility] LABORATORYCLIA [id number] [address] MCH (RBC) [Entitic mass] 30.6 pg Normal 26.0-34.0 [facility] Comment on above: Order Comment: Speci men Type: BLOOD SPECIMENOrdering Facility: [facility] Address: [address] [place] [address] Performed By: #### 5 8410-2 ####[facility] LABORATORYCLIA [id number] [address] MCHC (RBC) [Mass/Vol] 34.2 g/dL Normal 30.5-36.0 [facility] Comment on above: Order Comment: Speci men Type: BLOOD SPECIMENOrdering Facility: [facility] Address: [address] [place] [address] Performed By: #### 5 8410-2 ####[facility] LABORATORYCLIA [id number] [address] MCV (RBC) [Entitic vol] 89.5 fL Normal 80.0-100.0 [facility] Comment on above: Order Comment: Speci men Type: BLOOD SPECIMENOrdering Facility: [facility] Address: [address] [place] [address] Performed By: #### 5 8410-2 ####[facility] [facility]ORATORYCLIA [id number] [address] Nucleated RBC (Bld) [#/Vol] 10*3/uL Normal <0.01 [facility] Comment on above: Order Comment: Speci men Type: BLOOD SPECIMENOrdering Facility: [facility] Address: [address] [place] [address] Performed By: #### 5 8410-2 ####[facility] LABORATORYCLIA [id number] [place] [address] [place] Platelet mean volume (Bld) [Entitic vol] 9.6 fL Normal 9.0-12.7 [facility] Comment on above: Order Comment: Speci men Type: BLOOD SPECIMENOrdering Facility: [facility] Address: [address] [place] [address] Performed By: #### 5 8410-2 ####[facility] LABORATORYCLIA [id number] [place] [address] [place] Platelets (Bld) [#/Vol] 149 10*3/uL Low 150-400 [facility] Comment on above: Order Comment: Speci men Type: BLOOD SPECIMENOrdering Facility: [facility] Address: [address] [place] [address] Performed By: #### 5 8410-2 ####[facility] LABORATORYCLIA [id number] [place] [address] [place] RBC (Bld) [#/Vol] 4.74 10*6/uL Normal 4.20-6.00 [facility] Comment on above: Order Comment: Speci men Type: BLOOD SPECIMENOrdering Facility: [facility] Address: [address] [place] [address] Performed By: #### 5 8410-2 ####[facility] LABORATORYCLIA [id number] [place] [address] [place] WBC (Bld) [#/Vol] 6.08 10*3/uL Normal 3.70-11.00 [facility] Comment on above: Order Comment: Speci men Type: BLOOD SPECIMENOrdering Facility: [facility] Address: [address] [place] [address] Performed By: #### 5 8410-2 ####[facility] LABORATORYCLIA [id number] [place] [address] [place] US KIDNEY/BLADDERon 05-07-19 US KIDNEY/BLADDER * * *Final Report* * * DATE OF EXAM: May 06 2021 11:14AM SELIN 1055 - US KIDNEY/BLADDER / PROCEDURE REASON: UTI recurrent, febrile * * * * Physician Interpretation * * * * EXAMINATION: RENAL ULTRASOUND HISTORY: UTI recurrent, febrile Persistent fevers despite atb, r/o abscess TECHNIQUE: Sonography of the kidneys and urinary bladder was performed. Images were obtained and stored in a permanent archive. MQ: UR_1 COMPARISON: 05/02/2021 RESULT: Right Kidney: -Renal length: 12.5 cm -Parenchyma: Normal echogenicity -Collecting system: No hydronephrosis on the RIGHT side -Calculus: No stones -Lesion: Question of a 4 mm nonobstructing stone lower pole RIGHT kidney Left Kidney: -Renal length: 10.7 cm -Parenchyma: Normal echogenicity -Collecting system: No hydronephrosis on the LEFT side -Calculus: 6 mm nonobstructing stone lower pole LEFT kidney -Lesion: Simple cyst midpole LEFT kidney. It measures 4.0 cm. Bladder: Bladder is unremarkable Prostate measures 3.8 x 5.3 x 3.9 cm. IMPRESSION: 1. Small nonobstructing calcifications in each kidney 2. Simple cysts in the LEFT kidney [employer] Consultant: MAIKEL Transcribe Date/Time: May 06 2021 11:29A Dictated by : ERWIN PERSON DO This examination was interpreted and the report reviewed and electronically signed by: ERWIN PERSON DO on May 06 2021 11:53AM EST [id number] [facility] ALLIED HEALTHon 05-05-2021 ALLIED HEALTH HNO ID: [id number] Author: RT David(R) Service: Radiology Author Type: Technologist Type: Allied Health Filed: 05/05/2021 2:46 PM Note Text: Radiology Service Progress Note PATIENT NAME: Edmundo Henao DATE OF SERVICE: May 05, 2021 TIME: 2:45 PM PATIENT IDENTITY VERIFICATION COMPLETED USING TWO (2) IDENTIFIERS: Name and Date of confirmed by patient verbally. FALL SCREENING: Has the patient had 2 falls in the last year or 1 fall with injury or currently using an Ambulatory Assistive Device (Walker, Cane, Wheelchair, Crutches, etc.)? Inpatient: Screened on floor PATIENT GENDER DATA: Male PATIENT RELEVANT IMPLANT DATA REVIEWED: Not Applicable RADIOLOGY DEPARTMENT: General X-ray: Exam(s) Completed: Abdomen X-Ray: Abdomen PERIPHERAL IV DATA: Not applicable SIGNED BY: Lisa Liu RT(R) May 05, 2021 2:45 PM Normal [facility] Basic metabolic 2000 panelon 05-05-2021 Anion gap [Moles/Vol] 9 mmol/L Normal 9-18 [facility] Comment on above: Order Comment: Speci men Type: BLOOD SPECIMENOrdering Facility: [facility] Address: [address] [place] [address] Performed By: #### 2 4321-2 ####[facility] LABORATORYCLIA [id number] [place] [address] [place] Calcium [Mass/Vol] 8.6 mg/dL Normal 8.5-10.2 [facility] Comment on above: Order Comment: Speci men Type: BLOOD SPECIMENOrdering Facility: [facility] Address: [address] [place] [address] Performed By: #### 2 4321-2 ####[facility] LABORATORYCLIA [id number] [place] [address] [place] Chloride [Moles/Vol] 99 mmol/L Normal 97-105 [facility] Comment on above: Order Comment: Speci men Type: BLOOD SPECIMENOrdering Facility: [facility] Address: [address] [address] Performed By: #### 2 4321-2 ####[facility] LABORATORYCLIA [id number] [place] [address] [place] CO2 [Moles/Vol] 24 mmol/L Normal 22-30 [facility] Comment on above: Order Comment: Speci men Type: BLOOD SPECIMENOrdering Facility: [facility] Address: [address] [address] Performed By: #### 2 4321-2 ####[facility] [facility]ORATORYCLIA [id number] [address] Creatinine [Mass/Vol] 0.93 mg/dL Normal 0.73-1.22 [facility] Comment on above: Order Comment: Jonathan cammy Type: BLOOD SPECIMENOrdering Facility: [facility] Address: [address] [place] [address] Performed By: #### 2 4321-2 ####[facility] LABORATORYCLIA [id number] [address] ESTIMATED GLOMERULAR FILTRATION RATE 91 mL/min/1.73m??? Normal >=60 [facility] Comment on above: Order Comment: Jonathan chawla Type: BLOOD SPECIMENOrdering Facility: [facility] Address: [address] [place] [address] Result Comment: Joceline mated Glomerular Filtration Rate (eGFR) is calculated using the 2020 CKD-EPI creatinine equation. This equation utilizes serum creatinine, sex, and age as parameters. The creatinine assay has traceable calibration to isotope dilution-mass spectrometry. Refer to KDIGO guidelines for clinical interpretation. In patients with unstable renal function, e.g. those with acute kidney injury, the eGFR may not accurately reflect actual GFR. Performed By: #### 2 4321-2 ####[facility] [facility]ORATORYCLIA [id number] [address] Glucose [Mass/Vol] 136 mg/dL High 74-99 [facility] Comment on above: Order Comment: Samanthachema chawla Type: BLOOD SPECIMENOrdering Facility: [facility] Address: [address] [place] [address] Result Comment: The [place] Diabetes Association (ADA) provides guidance for cutoff values for fasting glucose and random glucose. The ADA defines fasting as no caloric intake for at least 8 hours. Fasting plasma glucose results between 100 to 125 mg/dL indicate increased risk for diabetes (prediabetes). Fasting plasma glucose results greater than or equal to 126 mg/dL meet the criteria for diagnosis of diabetes. In the absence of unequivocal hyperglycemia, results should be confirmed by repeat testing. In a patient with classic symptoms of hyperglycemia or hyperglycemic crisis, random plasma glucose results greater than or equal to 200 mg/dL meet the criteria for diagnosis of diabetes. Reference: Standards of Medical Care in Diabetes 2016, [place] [employer]. Diabetes Care. 2016.39(Suppl 1). Performed By: #### 2 4321-2 ####[facility] [facility]ORATORYCLIA [id number] [address] Potassium [Moles/Vol] 4.1 mmol/L Normal 3.7-5.1 [facility] Comment on above: Order Comment: Jonathan chawla Type: BLOOD SPECIMENOrdering Facility: [facility] Address: [address] [place] [address] Performed By: #### 2 4321-2 ####[facility] [facility]ORATORYCLIA [id number] [address] Sodium [Moles/Vol] 132 mmol/L Low 136-144 [facility] Comment on above: Order Comment: Jonathan chawla Type: BLOOD SPECIMENOrdering Facility: [facility] Address: [address] [place] [address] Performed By: #### 2 4321-2 ####[facility] LABORATORYCLIA [id number] [address] Urea nitrogen [Mass/Vol] 9 mg/dL Normal 9-24 [facility] Comment on above: Order Comment: Jonathan chawla Type: BLOOD SPECIMENOrdering Facility: [facility] Address: [address] [place] [address] Performed By: #### 2 4321-2 ####[facility] LABORATORYCLIA [id number] [address] CASE MANAGEMon 05-05-2021 CASE MANAGEM HNO ID: [id number] Author: Teresa Navarro RN Service: Case Management Author Type: Registered Nurse Type: Care Mgt Progress Note Filed: 05/05/2021 8:51 AM Note Text: CARE MANAGEMENT PROGRESS NOTE SERVICE DATE: 05/05/2021 SERVICE TIME: 8:45 AM LOS: 3 days Needs Prior to Discharge: To Be Determined Per ID continue Ancef. Complicated UTI. Follow repeat BCx x 2. MRI C spine done. 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 Rec OP follow up in neurology clinic after DC. SIGNATURE: Teresa Navarro RN PATIENT NAME: Edmundo Henao DATE: May 05, 2021 TIME: 8:45 AM PAGER/CONTACT #: [phone] Normal [facility] CBC panel Auto (Bld)on 05-05 Erythrocyte distribution width (RBC) [Ratio] 13.2 % Normal 11.5-15.0 [facility] Comment on above: Order Comment: Speci men Type: BLOOD SPECIMEN Ordering Facility: [facility] Address: [address] [place] [address] Performed By: #### 5 8410-2 #### [facility] CLIA [id number] [address] Hematocrit (Bld) [Volume fraction] 40.7 % Normal 39.0-51.0 [facility] Comment on above: Order Comment: Speci cammy Type: BLOOD SPECIMEN Ordering Facility: [facility] Address: [address] [place] [address] Performed By: #### 5 8410-2 #### [facility] CLIA [id number] [address] [facility] Hemoglobin (Bld) [Mass/Vol] 14.2 g/dL Normal 13.0-17.0 [facility] Comment on above: Order Comment: Speci men Type: BLOOD SPECIMEN Ordering Facility: [facility] Address: [address] [place] [address] Performed By: #### 5 8410-2 #### [facility] CLIA [id number] [address] MCH (RBC) [Entitic mass] 31.6 pg Normal 26.0-34.0 [facility] Comment on above: Order Comment: Speci men Type: BLOOD SPECIMEN Ordering Facility: [facility] Address: [address] [place] [address] Performed By: #### 5 8410-2 #### [facility] CLIA [id number] [address] MCHC (RBC) [Mass/Vol] 34.9 g/dL Normal 30.5-36.0 [facility] Comment on above: Order Comment: Speci men Type: BLOOD SPECIMEN Ordering Facility: [facility] Address: [address] [place] [address] Performed By: #### 5 8410-2 #### [facility] CLIA [id number] [address] [place] MCV (RBC) [Entitic vol] 90.6 fL Normal 80.0-100.0 [facility] Comment on above: Order Comment: Speci men Type: BLOOD SPECIMEN Ordering Facility: [facility] Address: [address] [place] [address] Performed By: #### 5 8410-2 #### [facility] CLIA [id number] [address] [facility] Nucleated RBC (Bld) [#/Vol] 10*3/uL Normal <0.01 [facility] Comment on above: Order Comment: Speci men Type: BLOOD SPECIMEN Ordering Facility: [facility] Address: [address] [place] [address] Performed By: #### 5 8410-2 #### [facility] CLIA [id number] [address] Platelet mean volume (Bld) [Entitic vol] 10.0 fL Normal 9.0-12.7 [facility] Comment on above: Order Comment: Speci men Type: BLOOD SPECIMEN Ordering Facility: [facility] Address: [address] [place] [address] Performed By: #### 5 8410-2 #### [facility] CLIA [id number] [address] Platelets (Bld) [#/Vol] 128 10*3/uL Low 150-400 [facility] Comment on above: Order Comment: Speci men Type: BLOOD SPECIMEN Ordering Facility: [facility] Address: [address] [place] [address] Performed By: #### 5 8410-2 #### [facility] CLIA [id number] [address] [place] [address] [place] RBC (Bld) [#/Vol] 4.49 10*6/uL Normal 4.20-6.00 [facility] Comment on above: Order Comment: Speci men Type: BLOOD SPECIMEN Ordering Facility: [facility] Address: [address] [place] [address] Performed By: #### 5 8410-2 #### [facility] CLIA [id number] [address] [facility] WBC (Bld) [#/Vol] 10.98 10*3/uL Normal 3.70-11.00 [facility] Comment on above: Order Comment: Speci men Type: BLOOD SPECIMEN Ordering Facility: [facility] Address: [address] [place] [address] Performed By: #### 5 8410-2 #### [facility] CLIA [id number] [address] XR ABDOMEN 1V SUPINEon 05-05 XR ABDOMEN 1V SUPINE * * *Final Report* * * DATE OF EXAM: May 05 2021 2:45PM MDX 5289 - XR ABDOMEN 1V SUPINE / PROCEDURE REASON: Abd pain, unspecified * * * * Physician Interpretation * * * * HISTORY: Abd pain, unspecified ABDOMINAL PAIN TECHNIQUE: Supine abdomen COMPARISON: None RESULT: No dilated gas-filled bowel or stomach. No abnormal calcifications or obvious mass. IMPRESSION: Nonspecific abdomen [employer] Consultant: MAIKEL Transcribe Date/Time: May 05 2021 2:51P Dictated by : BRII COLES MD This examination was interpreted and the report reviewed and electronically signed by: BRII COLES MD on May 05 2021 2:52PM EST [id number] Normal [facility] ALLIED HEALTHon 05-04-2021 ALLIED HEALTH HNO ID: [id number] Author: RT Gregorio(R) Service: Radiology Author Type: Technologist Type: Allied Health Filed: 05/04/2021 12:00 PM Note Text: Radiology Service Progress Note PATIENT NAME: Edmundo Henao DATE OF SERVICE: May 04, 2021 TIME: 12:00 PM PATIENT IDENTITY VERIFICATION COMPLETED USING TWO (2) IDENTIFIERS: Name and Date of confirmed by patient verbally and Name and Date of confirmed by identification band. FALL SCREENING: Has the patient had 2 falls in the last year or 1 fall with injury or currently using an Ambulatory Assistive Device (Walker, Cane, Wheelchair, Crutches, etc.)? Inpatient: Screened on floor PATIENT GENDER DATA: Male PATIENT RELEVANT IMPLANT DATA REVIEWED: Yes RADIOLOGY DEPARTMENT: MR; Exam(s) Completed: Spine: Cervical spine PERIPHERAL IV DATA: Not applicable SIGNED BY: Shantelle Mack RT(R) May 04, 2021 12:00 PM Normal [facility] Bilirub Conj SerPl-mCncon Bilirubin.conjugated [Mass/Vol] mg/dL Normal <0.2 [facility] Comment on above: Order Comment: Jonathan chawla Type: BLOOD SPECIMEN Ordering Facility: [facility] Address: [address] [place] [address] Performed By: #### 1 9123-9, 83292-0 #### [facility] CLIA [id number] [address] CBC panel Auto (Bld)on 05-04 Erythrocyte distribution width (RBC) [Ratio] 13.2 % Normal 11.5-15.0 [facility] Comment on above: Order Comment: Jonathan chawla Type: BLOOD SPECIMENOrdering Facility: [facility] Address: [address] [place] [address] Performed By: #### 5 8410-2 ####[facility] LABORATORYCLIA [id number] [address] [place] Hematocrit (Bld) [Volume fraction] 38.7 % Low 39.0-51.0 [facility] Comment on above: Order Comment: Jonathan chawla Type: BLOOD SPECIMENOrdering Facility: [facility] Address: [address] [place] [address] Performed By: #### 5 8410-2 ####[facility] LABORATORYCLIA [id number] [address] [facility] Hemoglobin (Bld) [Mass/Vol] 13.1 g/dL Normal 13.0-17.0 [facility] Comment on above: Order Comment: Speci men Type: BLOOD SPECIMENOrdering Facility: [facility] Address: [address] [place] [address] Performed By: #### 5 8410-2 ####[place] [facility]ORATORYCLIA [id number] [address] MCH (RBC) [Entitic mass] 31.0 pg Normal 26.0-34.0 [facility] Comment on above: Order Comment: Speci men Type: BLOOD SPECIMENOrdering Facility: [facility] Address: [address] [place] [address] Performed By: #### 5 8410-2 ####[facility] [facility]ORATORYCLIA [id number] [address] MCHC (RBC) [Mass/Vol] 33.9 g/dL Normal 30.5-36.0 [facility] Comment on above: Order Comment: Speci men Type: BLOOD SPECIMENOrdering Facility: [facility] Address: [address] [place] [address] Performed By: #### 5 8410-2 ####[facility] [facility]ORATORYCLIA [id number] [address] MCV (RBC) [Entitic vol] 91.5 fL Normal 80.0-100.0 [facility] Comment on above: Order Comment: Speci men Type: BLOOD SPECIMENOrdering Facility: [facility] Address: [address] [place] [address] Performed By: #### 5 8410-2 ####[place] [facility]ORATORYCLIA [id number] [address] Nucleated RBC (Bld) [#/Vol] 10*3/uL Normal <0.01 [facility] Comment on above: Order Comment: Speci men Type: BLOOD SPECIMENOrdering Facility: [facility] Address: [address] [place] [address] Performed By: #### 5 8410-2 ####[facility] [facility]ORATORYCLIA [id number] [address] Platelet mean volume (Bld) [Entitic vol] 10.0 fL Normal 9.0-12.7 [facility] Comment on above: Order Comment: Jonathan chawla Type: BLOOD SPECIMENOrdering Facility: [facility] [facility] Address: [address] [place] [address] Performed By: #### 5 8410-2 ####[facility] LABORATORYCLIA [id number] [address] [place] Platelets (Bld) [#/Vol] 120 10*3/uL Low 150-400 [facility] Comment on above: Order Comment: Jonathan chawla Type: BLOOD SPECIMENOrdering Facility: [facility] Address: [address] [place] [address] Performed By: #### 5 8410-2 ####[facility]ENT LABORATORYCLIA [id number] [address] OF [facility] RBC (Bld) [#/Vol] 4.23 10*6/uL Normal 4.20-6.00 [facility] Comment on above: Order Comment: Samanthai cammy Type: BLOOD SPECIMENOrdering Facility: [facility] Address: [address] [place] [address] Performed By: #### 5 8410-2 ####[facility] LABORATORYCLIA [id number] [address] WBC (Bld) [#/Vol] 15.39 10*3/uL High 3.70-11.00 [facility] Comment on above: Order Comment: Jonathan chawla Type: BLOOD SPECIMENOrdering Facility: [facility] Address: [address] [place] [address] Performed By: #### 5 8410-2 ####[facility]ALENT LABORATORYCLIA [id number] [address] CONSULTon 05-04-2021 CONSULT HNO ID: [id number] Author: Quoc Spencer MD Service: Neurology General Author Type: Physician Type: Consults Filed: 05/04/2021 9:50 AM Note Text: [facility] TeleNeurology Consult Note Patient seen using Teleneurology Services. Recommendations are placed in the chart. Please review. For questions after hours, when teleneurologist is not available, for [facility]: Please Page [phone] for the [facility] from 12pm to 8Am Admitting Provider/Consulted by:Dominique Boucher DO Time of Note:05/04/2021 Patient Name:Edmundo Henao Admit Date:05/02/2021 Hospital Day:2 CC: arm weakness History of Present Illness: Edmundo Henao is a 65 year old right handed male with a past medical history of hypertension, coronary artery disease, CABG in 2002, DVT and PE 2019, presented to for urinary tract infection. neurology was consulted for arm pain. It's been going on for at least 3 months and flared up this time. He feels burning sensation in right arm. No urinary incontinence. No leg weakness. Strength is ok. He is seeing a neurologist for it. He had EMG last months. He had XR and was told that he had broken vertebary body. Prior to Admission medications : Medication aspirin 81 mg cap, Sig Take 81 mg by mouth once daily. Takes periodically. Does Not take everyday. , Start Date , End Date , Taking? Yes, Authorizing Provider [facility] Provider Medication atorvastatin (LIPITOR) 10 mg tablet, Sig Take 10 mg by mouth once daily., Start Date , End Date , Taking? Yes, Authorizing Provider [facility] Provider Medication losartan (COZAAR) 50 mg tablet, Sig Take 50 mg by mouth twice daily. , Start Date 08/19/17, End Date , Taking? Yes, Authorizing Provider [facility] Provider Medication VIT E ACETATE/VIT BCOMPANDC/ZINC (ZINC WITH VITAMINS ORAL), Sig Take 1 capsule by mouth once daily. , Start Date , End Date , Taking? , Authorizing Provider Ccf Provider Current Inpatient Medications: Scheduled meds: Current Facility-Administered Medications Medication Dose Route Frequency Provider Last Rate Last Admin - polyethylene glycol 3350 17 g packet (MIRALAX, GLYCOLAX) 17 g ORAL DAILY Dominique Boucher DO 17 g at 05/04/21 0836 - NaCl 0.9% iv flush bag 20 mL INTRAVENOUS PRN Katie Molina PA-C - cefTRIAXone iv piggyback 1 g in dextrose (iso-osmotic) 50 mL (ROCEPHIN) 1 g INTRAVENOUS q 24 H Katie Molina PA-C Stopped at 05/04/21 0906 - atorvastatin 10 mg tab(s) (LIPITOR) 10 mg ORAL DAILY Dominique Boucher, DO 10 mg at 05/04/21 0836 - losartan 50 mg tab(s) (COZAAR) 50 mg ORAL BID Dominique Boucher, DO 50 mg at 05/04/21 0835 - sodium chloride 0.9 % (flush) 3-5 mL (BD POSIFLUSH) 3-5 mL INTRAVENOUS q 12 H Dominique Boucher, DO 5 mL at 05/04/21 0840 - NaCl 0.9% iv infusion 75 mL/hr INTRAVENOUS CONTINUOUS Dominique Boucher, DO 75 mL/hr at 05/04/21 0450 75 mL/hr at 05/04/21 0450 - acetaminophen 650 mg tab(s) (TYLENOL) 650 mg ORAL q 6 H PRN Dominique Boucher, DO 650 mg at 05/03/21 1250 - diclofenac 1 % 2 g topical gel (VOLTAREN) 2 g TOPICAL BID PRN Dominique Boucher, DO 2 g at 05/03/21 1828 PAST MEDICAL HISTORY Diagnosis Date - ASCVD (arteriosclerotic cardiovascular disease) - Chest pain - HTN (hypertension) PAST SURGICAL HISTORY Procedure Laterality Date - ACHILLES TENDON SURGERY HX Right Dr. Romero, tendon release - ARTHROSCOPY KNEE MEDIAL RELEASE Right Dr. Zhou - BACK SURGERY HX 1985 laminectomy - COLONOSCOPY FLX DX W/COLLJ SPEC WHEN PFRMD 07/2000 Colonoscopy - COLONOSCOPY W/BIOPSY SINGLE/MULTIPLE 08/26/11 - CORONARY ARTERY BYP W/VEIN AND ARTERY GRAFT 5 VEIN 2001 - HERNIA REPAIR HX Left x 2 - LASER ENUCLEATION PROSTATE W/MORCELLATION Social History Tobacco Use - Smoking status: Never Smoker - Smokeless tobacco: Never Used Substance Use Topics - Alcohol use: No Comment: almost never - Drug use: No FAMILY HISTORY Problem Relation Age of Onset - Heart Father - Diabetes Father - other (hypercholes) Mother ALLERGIES Allergen Reactions - Ampicillin Rash - Niacin Rash bladder irritation with frequency - Statins [Statins-Hm* Other: See Comments Ocular retinitis from Crestor PHYSICAL EXAM: Performed over the teleneurology video Assisted by the teleneurology nurse at patient bedside BP 123/74 Pulse 73 Temp 37 ?C (98.6 ?F) (Oral) Resp 20 Ht 184.2 cm (6' 0.5") Wt 106.5 kg (234 lb 12.6 oz) SpO2 95% BMI 31.41 kg/m? General Appearance: Well appearing, alert, in no acute distress, well-hydrated, well nourished. Neurological: ? Mental Status: Alert, with normal speech and language. Attention and concentration appeared normal. Oriented x 3. - Cranial Nerves: - Visual acuity normal, Visual jamison full to confrontation, full extraoccular movements, without nystagmus, Facial muscles symmetric and strong, No noted facial droop - ? Motor Exam: no muscle atrophy Individual muscle group was not assessed due to the indirect encounter over teleneurology RIGHT (more content not included)... Normal [facility] Comprehensive metabolic 2000 panelon 05-04-2021 Albumin [Mass/Vol] 3.2 g/dL Low 3.9-4.9 [facility] Comment on above: Order Comment: Jonathan chawla Type: BLOOD SPECIMEN [facility]ing Facility: [facility] Address: [address] [place] [address] Performed By: #### 1 23-9, 26343-9 #### [facility] CLIA [id number] [address] [place] [address] [place] ALP [Catalytic activity/Vol] 98 U/L Normal 38-113 [facility] Comment on above: Order Comment: Jonathan chawla Type: BLOOD SPECIMEN Ordering Facility: [facility] Address: [address] [place] [address] Performed By: #### 1 23-9, 75664-0 #### [facility] CLIA [id number] [address] STATES [facility] ALT [Catalytic activity/Vol] 15 U/L Normal 10-54 [facility] Comment on above: Order Comment: Jonathan chawla Type: BLOOD SPECIMEN Ordering Facility: [facility] Address: [address] [place] [address] Performed By: #### 1 9123-9, 86043-2 #### [facility] CLIA [id number] [address] [place] [address] [place] Anion gap [Moles/Vol] 9 mmol/L Normal 9-18 [facility] Comment on above: Order Comment: Speci men Type: BLOOD SPECIMEN Ordering Facility: [facility] Address: [address] [address] Performed By: #### 1 239, 72547-5 #### [facility] CLIA [id number] [address] [place] AST [Catalytic activity/Vol] 17 U/L Normal 14-40 [facility] Comment on above: Order Comment: Speci men Type: BLOOD SPECIMEN Ordering Facility: [facility] Address: [address] [place] [address] Performed By: #### 1 9, 26858-3 #### [facility] CLIA [id number] [address] [place] [address] [place] Bilirubin [Mass/Vol] 0.8 mg/dL Normal 0.2-1.3 [facility] Comment on above: Order Comment: Speci men Type: BLOOD SPECIMEN Ordering Facility: [facility] Address: [address] [place] [address] Performed By: #### 1 9, 13955-1 #### [facility] CLIA [id number] [address] STATES [facility] Calcium [Mass/Vol] 8.2 mg/dL Low 8.5-10.2 [facility] Comment on above: Order Comment: Speci men Type: BLOOD SPECIMEN Ordering Facility: [facility] Address: [address] [address] Performed By: #### 1 9, 72631-0 #### [facility] CLIA [id number] [address] [place] [address] [place] Chloride [Moles/Vol] 105 mmol/L Normal 97-105 [facility] Comment on above: Order Comment: Speci men Type: BLOOD SPECIMEN Ordering Facility: [facility] Address: [address] [address] Performed By: #### 1 239, 98092-0 #### [facility] CLIA [id number] [address] [place] CO2 [Moles/Vol] 23 mmol/L Normal 22-30 [facility] Comment on above: Order Comment: Jonathan chawla Type: BLOOD SPECIMEN Ordering Facility: [facility] Address: [address] [address] Performed By: #### 1 9123-9, #### [facility] CLIA [id number] [address] Creatinine [Mass/Vol] 0.97 mg/dL Normal 0.73-1.22 [facility] Comment on above: Order Comment: Jonathan chawla Type: BLOOD SPECIMEN Ordering Facility: [facility] Address: [address] [place] [address] Performed By: #### 1 91239, #### [facility] CLIA [id number] [address] ESTIMATED GLOMERULAR FILTRATION RATE 86 mL/min/1.73m??? Normal >=60 [facility] Comment on above: Order Comment: Jonathan chawla Type: BLOOD SPECIMEN Ordering Facility: [facility] Address: [address] [place] [address] Result Comment: Joceline mated Glomerular Filtration Rate (eGFR) is calculated using the 2020 CKD-EPI creatinine equation. This equation utilizes serum creatinine, sex, and age as parameters. The creatinine assay has traceable calibration to isotope dilution-mass spectrometry. Refer to KDIGO guidelines for clinical interpretation. In patients with unstable renal function, e.g. those with acute kidney injury, the eGFR may not accurately reflect actual GFR. Performed By: #### 1 9123-9, #### [facility] CLIA [id number] [address] Glucose [Mass/Vol] 116 mg/dL High 74-99 [facility] Comment on above: Order Comment: Jonathan chawla Type: BLOOD SPECIMEN Ordering Facility: [facility] Address: [address] [place] [address] Result Comment: The [place] Diabetes Association (ADA) provides guidance for cutoff values for fasting glucose and random glucose. The ADA defines fasting as no caloric intake for at least 8 hours. Fasting plasma glucose results between 100 to 125 mg/dL indicate increased risk for diabetes (prediabetes). Fasting plasma glucose results greater than or equal to 126 mg/dL meet the criteria for diagnosis of diabetes. In the absence of unequivocal hyperglycemia, results should be confirmed by repeat testing. In a patient with classic symptoms of hyperglycemia or hyperglycemic crisis, random plasma glucose results greater than or equal to 200 mg/dL meet the criteria for diagnosis of diabetes. Reference: Standards of Medical Care in Diabetes 2016, [place] [employer] Association. Diabetes Care. 2016.39(Suppl 1). Performed By: #### 1 23-9, 61781-4 #### [facility] CLIA [id number] [address] [place] [address] [place] Potassium [Moles/Vol] 3.8 mmol/L Normal 3.7-5.1 [facility] Comment on above: Order Comment: Jonathan chawla Type: BLOOD SPECIMEN Ordering Facility: [facility] Address: [address] [place] [address] Performed By: #### 1 9122-10, #### [facility] CLIA [id number] [address] [place] [address] [place] Protein [Mass/Vol] 5.6 g/dL Low 6.3-8.0 [facility] Comment on above: Order Comment: Jonathan chawla Type: BLOOD SPECIMEN Ordering Facility: [facility] Address: [address] [place] [address] Performed By: #### 1 239, #### [facility] CLIA [id number] [address] [place] [address] [place] Sodium [Moles/Vol] 137 mmol/L Normal 136-144 [facility] Comment on above: Order Comment: Jonathan chawla Type: BLOOD SPECIMEN Ordering Facility: [facility] Address: [address] [place] [address] Performed By: #### 1 9122-10, #### [facility] CLIA [id number] [address] [place] [address] [place] Urea nitrogen [Mass/Vol] 13 mg/dL Normal 9-24 [facility] Comment on above: Order Comment: Speci men Type: BLOOD SPECIMEN Ordering Facility: [facility] Address: [facility] [place] [address] Performed By: #### 1 9123-9, 47585-2 #### [facility] CLIA [id number] [address] [place] [address] [place] MRI CERVICAL SPINE WO IVCONo n 05-04-2021 MRI CERVICAL SPINE WO IVCON * * *Final Report* * * DATE OF EXAM: May 04 2021 12:20PM [facility] 0297 - MRI CERVICAL SPINE WO IVCON / PROCEDURE REASON: C-spine stenosis * * * * Physician Interpretation * * * * EXAMINATION: MRI CERVICAL SPINE WO IVCON CLINICAL HISTORY: C-spine stenosis TECHNIQUE: Routine cervical spine MR protocol without gadolinium. MQ: [id number] COMPARISON: None. RESULT: Counting reference: Craniocervical junction. Anatomic Variants: None. Localizer images: No additional findings Alignment: Alignment is anatomic. Craniocervical junction: Craniocervical junction is normal. Cord: The visualized cord is within normal limits of signal intensity and morphology. Bone marrow signal/fracture: No evidence of pathologic marrow infiltration. No evidence of prior fracture. Cervical soft tissues: The paraspinal soft tissues are within normal limits. C2-C3: Canal and foramina are patent. C3-C4: Canal and foramina are patent. C4-C5: Mild foraminal narrowing bilaterally from facet hypertrophy. Canal is patent. C5-C6: Moderate degenerative disc change with endplate hypertrophy moderately narrowing the canal. Moderate bilateral foraminal narrowing from facet and uncinate degenerative change. C6-C7: Minimal disc height loss posteriorly. Canal and foramina are patent. C7-T1: Canal and foramina are patent. IMPRESSION: Degenerative changes in the cervical spine most notably at C5-6 where there is disc height loss and endplate hypertrophy causing moderate canal narrowing. There is moderate bilateral foraminal narrowing at this level as well. Anatomic Variant: None. Assume 7 cervical vertebrae with counting from the craniocervical junction. [employer] Consultant: MAIKEL Transcribe Date/Time: May 04 2021 12:23P Dictated by : GIOVANY PANDA MD This examination was interpreted and the report reviewed and electronically signed by: GIOVANY PANDA MD on May 04 2021 12:25PM EST [id number] Normal [facility] Bacteria Bld Culton 05-04-19 22 Bacteria identified Cx Nom (Bld) CULTURE, BLOOD: No growth 5 days Normal [facility] Comment on above: Performed By: #### 6 00-7 ####[facility] LABCLIA [id number] [address] [id number] [address] [place] Basic metabolic 2000 panelon 05-03-2021 Anion gap [Moles/Vol] 9 mmol/L Normal 9-18 [facility] Comment on above: Order Comment: Speci men Type: BLOOD SPECIMENOrdering Facility: [facility] Address: [address] [place] [address] Performed By: #### 2 4321-2 ####[facility] LABORATORYCLIA [id number] [place] [address] [place] Calcium [Mass/Vol] 7.9 mg/dL Low 8.5-10.2 [facility] Comment on above: Order Comment: Speci men Type: BLOOD SPECIMENOrdering Facility: [facility] Address: [address] [place] [address] Performed By: #### 2 4321-2 ####[facility] LABORATORYCLIA [id number] [place] [address] [place] Chloride [Moles/Vol] 102 mmol/L Normal 97-105 [facility] Comment on above: Order Comment: Speci men Type: BLOOD SPECIMENOrdering Facility: [facility] Address: [address] [address] Performed By: #### 2 4321-2 ####[facility] LABORATORYCLIA [id number] [place] [address] [place] CO2 [Moles/Vol] 24 mmol/L Normal 22-30 [facility] Comment on above: Order Comment: Speci men Type: BLOOD SPECIMENOrdering Facility: [facility] Address: [address] [address] Performed By: #### 2 4321-2 ####[facility]ORATORYCLIA [id number] [address] [place] Creatinine [Mass/Vol] 0.96 mg/dL Normal 0.73-1.22 [facility] Comment on above: Order Comment: Jonathan cammy Type: BLOOD SPECIMENOrdering Facility: [facility] Address: [address] [address] Performed By: #### 2 4321-2 ####[facility]ATORYCLIA [id number] [address] ESTIMATED GLOMERULAR FILTRATION RATE 87 mL/min/1.73m??? Normal >=60 [facility] Comment on above: Order Comment: Jonathan cammy Type: BLOOD SPECIMENOrdering Facility: [facility] Address: [address] [place] [address] Result Comment: Joceline mated Glomerular Filtration Rate (eGFR) is calculated using the 2020 CKD-EPI creatinine equation. This equation utilizes serum creatinine, sex, and age as parameters. The creatinine assay has traceable calibration to isotope dilution-mass spectrometry. Refer to KDIGO guidelines for clinical interpretation. In patients with unstable renal function, e.g. those with acute kidney injury, the eGFR may not accurately reflect actual GFR. Performed By: #### 2 4321-2 ####[facility]ORYCLIA [id number] [address] [place] Glucose [Mass/Vol] 123 mg/dL High 74-99 [facility] Comment on above: Order Comment: Jonathan cammy Type: BLOOD SPECIMENOrdering Facility: [facility] Address: [address] [place] [address] Result Comment: The [place] Diabetes Association (ADA) provides guidance for cutoff values for fasting glucose and random glucose. The ADA defines fasting as no caloric intake for at least 8 hours. Fasting plasma glucose results between 100 to 125 mg/dL indicate increased risk for diabetes (prediabetes). Fasting plasma glucose results greater than or equal to 126 mg/dL meet the criteria for diagnosis of diabetes. In the absence of unequivocal hyperglycemia, results should be confirmed by repeat testing. In a patient with classic symptoms of hyperglycemia or hyperglycemic crisis, random plasma glucose results greater than or equal to 200 mg/dL meet the criteria for diagnosis of diabetes. Reference: Standards of Medical Care in Diabetes 2016, [place] Diabetes [employer]. Diabetes Care. 2016.39(Suppl 1). Performed By: #### 2 4321-2 ####[facility]IA [id number] [address] [place] Potassium [Moles/Vol] 3.7 mmol/L Normal 3.7-5.1 [facility] Comment on above: Order Comment: Speci men Type: BLOOD SPECIMENOrdering Facility: [facility] Address: [address] [place] [address] Performed By: #### 2 4321-2 ####[facility]ORYCLIA [id number] [place] [address] [place] Sodium [Moles/Vol] 135 mmol/L Low 136-144 [facility] Comment on above: Order Comment: Speci men Type: BLOOD SPECIMENOrdering Facility: [facility] Address: [address] [place] [address] Performed By: #### 2 4321-2 ####[facility]CLIA [id number] [address] [place] Urea nitrogen [Mass/Vol] 13 mg/dL Normal 9-24 [facility] Comment on above: Order Comment: Speci men Type: BLOOD SPECIMENOrdering Facility: [facility] Address: [address] [place] [address] Performed By: #### 2 4321-2 ####[facility] [id number] [address] [place] CASE MGT INIT ASSESon 2021 CASE MGT INIT ASSES HNO ID: [id number] Author: Nayely Andrews RN Service: ? Author Type: Registered Nurse Type: Care Mgt Initial Assessment Filed: 05/03/2021 12:46 PM Note Text: CARE MANAGEMENT: ASSESSMENT AND DISCHARGE PLAN SERVICE DATE: May 03, 2021 SERVICE TIME: 12:41 PM diabetes education coordinator spoke with patient. Patient requesting that MOISE MCFARLANE speak to his spouse to complete Care Management Assessment. MOISE MCFARLANE spoke with Jadyn Henao. Introduction made and role of Care Management explained. 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 Last discharge within 30 days: No Advance Directive: Current Advance Directive: None Erecting Engineer Attempted to Assist with AD Completion: No Unable to Assist Due To:: Other: See Comment (Spoke with patients Spouse Jadyn Hneao) Health LiteracyHow often do you need to have someone help you when you read instructions, pamphlets, or other written material from your doctor or pharmacy? : 1 - Never How confident are you filling out medical forms by yourself?: 1 - Extremely Baseline Mental Status Prior to this Illness what was the patient's Baseline Mental Status?: Alert AND Oriented Prior to this illness, has anyone described the patient having any of the following behaviors?: Not Applicable Relationship of the informant to the patient:: Self Functional Status: Independent Does Patient Currently Receive Any Community Services or Home Care?: None Equipment Prior to Admission: None Has the Patient Been in a Retirement Facility in the Past 30 days?: No SOCIAL: Living Arrangements: Home Lives With: Spouse 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) Primary Contact: Extended Emergency Contact Information Primary Emergency Contact: Jadyn Henao Address: [address] [place] [address] Mobile Relation: Spouse Supportive Patient Contact:: Yes Contact Resources: Family Family Name/Phone: Spouse: Jadyn Henao - [phone] Caregiver AssessmentCaregiver is ready, willing and able to meet the patient's needs as recommended by the inter-professional team:: No Caregiver needed Does the patient have an acute stroke diagnosis, or has the patient had a stroke during this admission?: No Patient's transition needs and plan for meeting these needs: Discharge Needs: To be Determined. Home with Self Care. Spouse to Transport Home at discharge. Patient's perception of need for this admission: N/A - spoke to patients spouse. Medication Adherance I am convinced of the importance of my prescription medication: 0 - Agree Completely I worry that my prescription medication will do more harm than good to me : 0 - Disagree Completely I feel financially burdened by my mid-[id number] expenses for my prescription medication:: 0 - Disagree Completely Risk Score: 0 Patient is categorized as: Low risk < 2 Medication Management: self Pharmacy Preference: [facility] Are you interested in bedside delivery of your medications? No Is Patient Psychosocially Complex?: No ASSESSMENT AND PLAN: Medical Needs: Medical Needs: Two or more chronic diseases Psychosocial Needs: Psychosocial Needs: None FREEDOM OF CHOICE EXPLAINED: [place] of Choice Given: No (discharge needs: to be determined.) POTENTIAL TRANSITION PLANS Discharge Needs: To be Determined. Spouse denies any discharge needs at this time. Home with Self Care Discharge Transportation: Spouse to Transport CM Dept to Follow. SIGNATURE: Nayely Andrews RN PATIENT NAME: Edmundo Henao DATE: May 03, 2021 TIME: 12:41 PM PAGER/CONTACT #: [phone] Normal [facility] CBC panel Auto (Bld)on 05-03 Erythrocyte distribution width (RBC) [Ratio] 13.2 % Normal 11.5-15.0 [facility] Comment on above: Order Comment: Jonathan chawla Type: BLOOD SPECIMENOrdering Facility: [facility] Address: [address] [place] [address] Performed By: #### 5 8410-2 ####[facility]ATORYCLIA [id number] [address] [place] Hematocrit (Bld) [Volume fraction] 39.0 % Normal 39.0-51.0 [facility] Comment on above: Order Comment: Jonathan chawla Type: BLOOD SPECIMENOrdering Facility: [facility] Address: [address] [place] [address] Performed By: #### 5 8410-2 ####[facility]ORYCLIA [id number] [place] [address] [place] Hemoglobin (Bld) [Mass/Vol] 13.3 g/dL Normal 13.0-17.0 [facility] Comment on above: Order Comment: Speci men Type: BLOOD SPECIMENOrdering Facility: [facility] Address: [address] [place] [address] Performed By: #### 5 8410-2 ####[facility]ORYCLIA [id number] [address] MCH (RBC) [Entitic mass] 30.6 pg Normal 26.0-34.0 [facility] Comment on above: Order Comment: Speci men Type: BLOOD SPECIMENOrdering Facility: [facility] Address: [address] [place] [address] Performed By: #### 5 8410-2 ####[facility]ORYCLIA [id number] [address] MCHC (RBC) [Mass/Vol] 34.1 g/dL Normal 30.5-36.0 [facility] Comment on above: Order Comment: Speci men Type: BLOOD SPECIMENOrdering Facility: [facility] Address: [address] [place] [address] Performed By: #### 5 8410-2 ####[facility]ORYCLIA [id number] [address] MCV (RBC) [Entitic vol] 89.7 fL Normal 80.0-100.0 [facility] Comment on above: Order Comment: Speci men Type: BLOOD SPECIMENOrdering Facility: [facility] Address: [address] [place] [address] Performed By: #### 5 8410-2 ####[facility]ORYCLIA [id number] [address] Nucleated RBC (Bld) [#/Vol] 10*3/uL Normal <0.01 [facility] Comment on above: Order Comment: Speci men Type: BLOOD SPECIMENOrdering Facility: [facility] Address: [address] [place] [address] Performed By: #### 5 8410-2 ####[facility]ORYCLIA [id number] [address] Platelet mean volume (Bld) [Entitic vol] 10.0 fL Normal 9.0-12.7 [facility] Comment on above: Order Comment: Speci men Type: BLOOD SPECIMENOrdering Facility: [facility] Address: [address] [place] [address] Performed By: #### 5 8410-2 ####[facility]ORYCLIA [id number] [address] [place] Platelets (Bld) [#/Vol] 120 10*3/uL Low 150-400 [facility] Comment on above: Order Comment: Speci men Type: BLOOD SPECIMENOrdering Facility: [facility] Address: [address] [place] [address] Performed By: #### 5 8410-2 ####[facility]ORATORYCLIA [id number] [place] [address] [facility] [place] RBC (Bld) [#/Vol] 4.35 10*6/uL Normal 4.20-6.00 [facility] Comment on above: Order Comment: Speci men Type: BLOOD SPECIMENOrdering Facility: [facility] Address: [address] [place] [address] Performed By: #### 5 8410-2 ####[facility]ATORYCLIA [id number] [address] [place] WBC (Bld) [#/Vol] 20.82 10*3/uL High 3.70-11.00 [facility] Comment on above: Order Comment: Speci men Type: BLOOD SPECIMENOrdering Facility: [facility] Address: [address] [place] [address] Performed By: #### 5 8410-2 ####[facility]ORATORYCLIA [id number] [address] [place] CNCOon 05-03-2021 CNCO Letter Text Normal [facility] CONSULTon 05-03-2021 CONSULT HNO ID: [id number] Author: Wild Hewitt MD Service: Infectious Disease Author Type: Physician Type: Consults Filed: 05/03/2021 10:06 AM Note Text: INFECTIOUS DISEASE INITIAL CONSULT SERVICE DATE: 05/03/2021 SERVICE TIME: 10:03 AM REASON FOR CONSULT: Bacteremia Subjective Patient is seen at the request of Dr Greg Boucher. My final recommendations will be communicated back to the requesting physician by way of copy of this note or shared electronic medical record. HPI: Edmundo Henao who is a 65 year old male w h/o HTN presents to ED c/o fever and urinary frequency. Pt states last night started having fever and chills. Today pt has urinary frequency and dysuria. He has been having intermittent abdominal pain and diarrhea. Also reports h/o prostatitis, has testicular pain with sitting. Denies back pain, nausea, vomiting. Had tylenol for fever last night. BCx taken and positive for GNR. ID consulted. PAST MEDICAL HISTORY Diagnosis Date - ASCVD (arteriosclerotic cardiovascular disease) - Chest pain - HTN (hypertension) PAST SURGICAL HISTORY Procedure Laterality Date - ACHILLES TENDON SURGERY HX Right Dr. Romero, tendon release - ARTHROSCOPY KNEE MEDIAL RELEASE Right Dr. Zhou - BACK SURGERY HX 1985 laminectomy - COLONOSCOPY FLX DX W/COLLJ SPEC WHEN PFRMD 07/2000 Colonoscopy - COLONOSCOPY W/BIOPSY SINGLE/MULTIPLE 08/26/11 - CORONARY ARTERY BYP W/VEIN AND ARTERY GRAFT 5 VEIN 2001 - HERNIA REPAIR HX Left x 2 - LASER ENUCLEATION PROSTATE W/MORCELLATION Social History Tobacco Use - Smoking status: Never Smoker - Smokeless tobacco: Never Used Substance Use Topics - Alcohol use: No Comment: almost never - Drug use: No FAMILY HISTORY Problem Relation Age of Onset - Heart Father - Diabetes Father - other (hypercholes) Mother Immunization History Administered Date(s) Administered COVID-19 vaccine, age 12+ yr ([employer]-DZZOM - PURPLE TOP) 04/17/2020 05/12/2020 Current Facility-Administered Medications Medication Dose Route Frequency - NaCl 0.9% iv flush bag 20 mL INTRAVENOUS PRN - iv contrast (radiology procedure) INTRAVENOUS DIRECTED PRN - cefTRIAXone iv piggyback 1 g [...] gel (VOLTAREN) 2 g TOPICAL BID PRN ALLERGIES Allergen Reactions - Ampicillin Rash - Niacin Rash bladder irritation with frequency - Statins [Statins-Hm* Other: See Comments Ocular retinitis from Crestor REVIEW OF SYSTEMS: ROS checked in details x 10 systems and is negative except as noted in the HPI. All qs answered. Objective PHYSICAL EXAM: Temp (24hrs), Av.6 ?C (99.6 ?F), Min:36.7 ?C (98.1 ?F), Max:38.2 ?C (100.8 ?F) BP 109/62 Pulse 81 Temp 37.4 ?C (99.3 ?F) (Oral) Resp 20 Ht 184.2 cm (6' 0.5") Wt 106.5 kg (234 lb 12.6 oz) SpO2 94% BMI 31.41 kg/m? GENERAL APPEARANCE: Alert, NAD SKIN: No rashes NECK: Supple BACK: no CVAT. LUNGS: Clear HEART: Regular rate/rhythm, normal heart sounds, and no murmurs. ABDOMEN: Soft, non tender, no palpable masses, normal bowel sounds. EXTREMITIES: No edema or tenderness: NEURO: Awake, alert DATA: Diagnostic tests reviewed for today's visit: Labs: Recent Labs 05/03/21 0545 05/02/21 1106 05/02/21 1105 WBC 20.82* -- 16.21* HB 13.3 -- 16.0 HCT 39.0 -- 46.6 PLT 120* -- 141* NA 135* 136 -- K 3.7 3.8 -- CHLOR 102 101 -- CO2 24 25 -- BUN 13 10 -- CREAT 0.96 0.89 -- UA: Lab Results Component Value Date PH 7.42 05/15/2002 SPGR 1.020 05/02/2021 SPGR 1.012 03/17/2014 UGLUC Negative 05/02/2021 UGLUC Negative 03/17/2014 UBILI Negative 05/02/2021 UBILI Negative 03/17/2014 UKET Negative 05/02/2021 UKET Negative 03/17/2014 UHB 2+ 05/02/2021 UHB Trace 03/17/2014 UPROT 05/02/2021 Comment: Visible blood causes falsely elevated results for analyte Protein. Due to this limitation, Protein will not be reported for patients whose urine contains visible blood. UPROT Negative 03/17/2014 UWBC >25 /HPF 05/02/2021 UWBC 0-5 03/17/2014 WSR: No results found for: WSR Impression/Recommendations GNR Bacteremia Complicated UTI (urinary tract infection) Hypertension Sepsis Prostatitis Hyperlipidemia BPH with obstruction/lower urinary tract symptoms PLAN: Ceftriaxone Repeat BCx x 2 Renal US PSA level Monitor temps and counts Thank you very much for having us involved in the care of this patient. We will follow with you. SIGNATURE: Wild Hewitt MD PATIENT NAME: Edmundo Henao DATE: May 03, 2021 TIME: 10:03 AM PAGER/CONTACT #: [phone] (more content not included)... [facility] CONSULT HNO ID: [id number] Author: Rob Gauthier MD Service: Urology Author Type: Physician Type: Consults Filed: 05/03/2021 12:56 PM Note Text: Urology Inpatient Consultation 05/02/2021 HISTORY OF PRESENT ILLNESS: The patient is a 65 year old male admitted with UTI. He is known to Dr. Ramos at [place]. Had TURP in Feb 2019. Reports nocturia and weak stream at baseline. However last few days worsening dysuira and frequency. Admitted with UTI. Reports issues with bowels at times too. Feeling better today. at bedside. Hx of PVP 03/18/2014 - Dr. Levin Seen by Dr. Esquivel in 2018, had negative hematuria work up with cystoscopy PAST MEDICAL HISTORY: PAST MEDICAL HISTORY Diagnosis Date - ASCVD (arteriosclerotic cardiovascular disease) - Chest pain - HTN (hypertension) PAST SURGICAL HISTORY: PAST SURGICAL HISTORY Procedure Laterality Date - ACHILLES TENDON SURGERY HX Right Dr. Romero, tendon release - ARTHROSCOPY KNEE MEDIAL RELEASE Right Dr. Zhou - BACK SURGERY HX 1985 laminectomy - COLONOSCOPY FLX DX W/COLLJ SPEC WHEN PFRMD 07/2000 Colonoscopy - COLONOSCOPY W/BIOPSY SINGLE/MULTIPLE 08/26/11 - CORONARY ARTERY BYP W/VEIN AND ARTERY GRAFT 5 VEIN 2001 - HERNIA REPAIR HX Left x 2 - LASER ENUCLEATION PROSTATE W/MORCELLATION ALLERGIES: ALLERGIES Allergen Reactions - Ampicillin Rash - Niacin Rash bladder irritation with frequency - Statins [Statins-Hm* Other: See Comments Ocular retinitis from Crestor HOME MEDICATIONS: aspirin 81 mg cap, Take 81 mg by mouth once daily. Takes periodically. Does Not take everyday. , Disp: , Rfl: atorvastatin (LIPITOR) 10 mg tablet, Take 10 mg by mouth once daily., Disp: , Rfl: , 05/02/2021 at Unknown time losartan (COZAAR) 50 mg tablet, Take 50 mg by mouth twice daily. , Disp: , Rfl: 2, 05/02/2021 at Unknown time VIT E ACETATE/VIT BCOMPANDC/ZINC (ZINC WITH VITAMINS ORAL), Take 1 capsule by mouth once daily. , Disp: , Rfl: FAMILY HISTORY: Family History Problem Relation Age of Onset - Heart Father - Diabetes Father - other (hypercholes) Mother Social History: Tobacco Use: Never Alcohol Use: No (almost never) ROS: Constitutional: negative for chills and fevers HEENT: no blurry vision or eye redness Respiratory: negative for hemoptysis and shortness of breath Cardiovascular: negative for dyspnea and syncope Gastrointestinal: negative for jaundice, nausea and vomiting Genitourinary:negative for dysuria and hematuria Hematologic/lymphatic: negative for bleeding Integumentary: no new bruises or lesions Musculoskeletal:negative for muscle weakness Neurological: negative for coordination problems and seizures All other systems negative PHYSICAL EXAM: VITALS: 05/02/21 1932 05/02/21 2313 05/03/21 0302 05/03/21 0759 BP: 118/67 111/65 106/60 109/62 Pulse: 99 97 82 81 Resp: 20 20 20 20 Temp: (!) 38 ?C (100.4 ?F) (!) 38 ?C (100.4 ?F) 37.1 ?C (98.8 ?F) 37.4 ?C (99.3 ?F) TempSrc: Oral Oral Oral Oral SpO2: 92% (!) 86% 94% 94% Weight: Height: General: Alert, in no acute distress Head: Normocephalic, atraumatic Neck: supple, trachea is midline, no obvious masses Respiratory: normal effort, no audible wheezes Cardiovascular: regular pulse and no cyanosis Musculoskeletal: moving all extremities, normal tone Skin: warm and dry Psych: normal mood and affect, oriented Abdomen: soft, non distended, non tender, no organomegaly, no hernias : Circ DATA: LABS: BMP: . Glucose (mg/dL) Date Value 05/03/2021 123 03/17/2014 138 Potassium (mmol/L) Date Value 05/03/2021 3.7 03/17/2014 3.9 Sodium (mmol/L) Date Value 05/03/2021 135 03/17/2014 142 Chloride (mmol/L) Date Value 05/03/2021 102 03/17/2014 105 CO2 (mmol/L) Date Value 05/03/2021 24 03/17/2014 25 Creatinine (mg/dL) Date Value 05/03/2021 0.96 10/19/2017 0.98 BUN (mg/dL) Date Value 05/03/2021 13 03/17/2014 13 Anion Gap (mmol/L) Date Value 05/03/2021 9 03/17/2014 12 Calcium (mg/dL) Date Value 03/17/2014 9.4 Calcium, Total (mg/dL) Date Value 05/03/2021 7.9 CBC: Hemoglobin (g/dL) Date Value 05/03/2021 13.3 03/17/2014 15.8 Hematocrit (%) Date Value 05/03/2021 39.0 03/17/2014 46.1 WBC (k/uL) Date Value 05/03/2021 20.82 03/17/2014 5.89 Platelet Count (k/uL) Date Value 05/03/2021 120 03/17/2014 155 Urinalysis: pH, Arterial Date Value Ref Range Status 05/15/2002 7.42 7.35 - 7.45 Final Specific Badger, Ur Date Value Ref Range Status 05/02/2021 1.020 1.005 - 1.030 Final Glucose, Urine Date Value Ref Range Status 05/02/2021 Negative Negative Final Bilirubin, Urine Date Value Ref Range Status 05/02/2021 Negative Negative Final Ketones, Urine Date Value Ref Range Status 05/02/2021 Negative Negative Final Hemoglobin/Blood,Ur Date Value Ref Range Status 05/02/2021 2+ (A) Negative Final Protein, Urine Date Value Ref Range (more content not included)... Normal [facility] Free PSA [Mass/Vol]on 2021 Free PSA/Total PSA [Mass fraction] 25 % Normal [facility] Comment on above: Order Comment: Speci men Type: BLOOD SPECIMENOrdering Facility: [facility] Address: [address] [place] [address] Result Comment: Tota l and free PSA test methodology used is the Electrochemiluminescence Immunoassay by [employer]. Total or free PSA values by differing methodologies cannot be interchanged. The below table lists the probability of finding prostate cancer upon needle biopsy, for men 50 years or older and total PSA concentrations from 4.0-10.0 ng/mL. Results should be interpreted within the broader clinical context. Free PSA(%) 50-59 years 60-69 years >69 years <11 49.2% 57.5% 64.5% 11-18 26.9% 33.9% 40.8% 19-25 18.3% 23.9% 29.7% >25 9.1% 12.2% 15.8% Performed By: #### 1 0886-0 ####[facility] LABCLIA [id number] [facility] [id number] [place] [address] [place] Prostate specific Ag [Mass/Vol] 13.53 ng/mL High <2.60 [facility] Comment on above: Order Comment: Speci men Type: BLOOD SPECIMENOrdering Facility: [facility] Address: [address] [place] [address] Result Comment: Tota l PSA test methodology used is the Electrochemiluminescence Immunoassay by [employer]. Total PSA values by differing methodologies cannot be interchanged. For an individual patient, the significance of a PSA level should be interpreted in a broad clinical context, including age, race, family history, digital rectal exam, prostate size, results of prior testing (prostate biopsy, free PSA, PCA3), and use of 5-alpha reductase inhibitors. Considering the high incidence of asymptomatic cancer in the general population that may not pose an ultimate risk to a patient, the decision to recommend urological evaluation or prostate biopsy should be individualized after consideration of all these factors. REFERENCE: Paz Grant M.D., M.P.H., Wolf Pineda M.D., Ph.D., Phan Cueva M.D., Violeta Mark M.PKana., Lora Grier Sc.D. Effect of Verification Bias on Screening for Prostate Cancer by Measurement of Prostatic Specific Antigen. N Engl J Med 2003,349:335-42. Performed By: #### 1 0886-0 ####[facility] LABIA [id number] [place] [id number] [place] ALLIED HEALTHon 05-02-2021 ALLIED HEALTH HNO ID: [id number] Author: RT Mike(R) Service: Radiology Author Type: Technologist Type: Allied Health Filed: 05/02/2021 12:05 PM Note Text: Radiology Service Progress Note PATIENT NAME: Edmundo Henao DATE OF SERVICE: May 02, 2021 TIME: 12:05 PM PATIENT IDENTITY VERIFICATION COMPLETED USING TWO (2) IDENTIFIERS: Name and Date of confirmed by patient verbally and Name and Date of confirmed by identification band. FALL SCREENING: Has the patient had 2 falls in the last year or 1 fall with injury or currently using an Ambulatory Assistive Device (Walker, Cane, Wheelchair, Crutches, etc.)? No PATIENT GENDER DATA: Male PATIENT RELEVANT IMPLANT DATA REVIEWED: Not Applicable RADIOLOGY DEPARTMENT: CT; Exam(s) Completed: Abdomen/Pelvis PERIPHERAL IV DATA: Site assessment: Clean,Dry and Intact, Site disposition Left in for next appointment SIGNED BY: RT Mike(R) May 02, 2021 12:05 PM [facility] Bacteria Bld Culton 05-03-19 22 Bacteria identified Cx Nom (Bld) CULTURE, BLOOD: No growth 5 days Normal [facility] Comment on above: Performed By: #### 6 00-7 ####[facility] LABIA [id number] [address] [place] Bacteria identified Cx Nom (Bld) ORGANISM ID: 1 Klebsiella oxytoca GRAM STAIN: Gram negative bacilli ORGANISM ID: 1 (KLEBSIELLA OXYTOCA) ANTIBIOTIC INTERPRETATION TUAN STATUS REFERENCE RANGE Ampicillin R >=32 F Susceptible <=8 , Intermediate >8 , Resistant >16 Ampicillin/Sulbact S 8 F Susceptible <=8 , Intermediate >8 , Resistant >16 Cefepime S <=1 F Susceptible <=2 , Intermediate >2 , Resistant >=16 Ceftriaxone S <=1 F Susceptible <=1 , Intermediate >1 , Resistant >=4 Ciprofloxacin S <=0.25 F Susceptible <0.5 , Intermediate >=.5 , Resistant >=1 Ertapenem S <=0.5 F Susceptible <=0.5 , Intermediate >.5 , Resistant >1 Gentamicin S <=1 F Susceptible <=4 , Intermediate >4 , Resistant >8 Meropenem S <=0.25 F Susceptible <=1 , Intermediate >1 , Resistant >2 Piperacillin/Tazobac S <=4 F Susceptible <=16 , Intermediate >16 , Resistant >32 Tobramycin S <=1 F Susceptible <=4 , Intermediate >4 , Resistant >8 Trimeth sulfameth S <=20 F Susceptible <=40 , Resistant >40 ORGANISM ID: 1 (KLEBSIELLA OXYTOCA) ANTIBIOTIC INTERPRETATION TUAN STATUS REFERENCE RANGE Cefazolin R F Susceptible <=2 , Intermediate >2 , Resistant >=8 Abnormal [facility] Comment on above: Performed By: #### 6 00-7 ####[facility] LABCLIA [id number] [address] [place] [facility] Bacteria identified Cx Nom (U) ORGANISM ID: 1 >=100,000 CFU/ml Klebsiella oxytoca ORGANISM ID: 1 (KLEBSIELLA OXYTOCA) ANTIBIOTIC INTERPRETATION TUAN STATUS REFERENCE RANGE Ampicillin R F Ampicillin/Sulbact S 8 F Susceptible <=8 , Intermediate >8 , Resistant >16 Cefazolin S 16 F Susceptible 0-16 , Intermediate <0 or >16 , Resistant >16 Cefepime S <=1 F Susceptible <=2 , Intermediate >2 , Resistant >=16 Ceftriaxone S <=1 F Susceptible <=1 , Intermediate >1 , Resistant >=4 Ciprofloxacin S <=0.25 F Susceptible <0.5 , Intermediate >=.5 , Resistant >=1 Ertapenem S <=0.5 F Susceptible <=0.5 , Intermediate >.5 , Resistant >1 Gentamicin S <=1 F Susceptible <=4 , Intermediate >4 , Resistant >8 Meropenem S <=0.25 F Susceptible <=1 , Intermediate >1 , Resistant >2 Nitrofurantoin S 32 F Susceptible <=32 , Intermediate >32 , Resistant >64 Piperacillin/Tazobac S <=4 F Susceptible <=16 , Intermediate >16 , Resistant >32 Tobramycin S <=1 F Susceptible <=4 , Intermediate >4 , Resistant >8 Trimeth sulfameth S <=20 F Susceptible <=40 , Resistant >40 Abnormal [facility] Comment on above: Performed By: #### 6 30-4 ####[facility] LABCLIA [id number] [address] [place] CBC W Auto Differential pane l (Bld)on 05-02-2021 Basophils (Bld) [#/Vol] 0.04 10*3/uL Normal <0.11 [facility] Comment on above: Order Comment: Speci men Type: BLOOD SPECIMEN Ordering Facility: [facility] Address: [address] [place] [address] Performed By: #### 1 9123-9, #### [facility] CLIA [id number] [address] Basophils/100 WBC (Bld) 0.2 % Normal [facility] Comment on above: Order Comment: Speci men Type: BLOOD SPECIMEN Ordering Facility: [facility] Address: [address] [place] [address] Performed By: #### 1 9123-9, #### [facility] CLIA [id number] [address] Differential cell count method Nom (Bld) Auto Normal [facility] Comment on above: Order Comment: Speci men Type: BLOOD SPECIMEN Ordering Facility: [facility] Address: [address] [place] [address] Performed By: #### 1 9123-9, 19786-7 #### [facility] CLIA [id number] [address] [place] [address] [place] Eosinophils (Bld) [#/Vol] 0.05 10*3/uL Normal <0.46 [facility] Comment on above: Order Comment: Speci men Type: BLOOD SPECIMEN Ordering Facility: [facility] Address: [address] [place] [address] Performed By: #### 1 239, 55083-5 #### [facility] CLIA [id number] [address] [place] Eosinophils/100 WBC (Bld) 0.3 % Normal [facility] Comment on above: Order Comment: Speci men Type: BLOOD SPECIMEN Ordering Facility: [facility] Address: [address] [place] [address] Performed By: #### 1 9, 26712-5 #### [facility] CLIA [id number] [address] [place] Erythrocyte distribution width (RBC) [Ratio] 13.1 % Normal 11.5-15.0 [facility] Comment on above: Order Comment: Speci men Type: BLOOD SPECIMEN Ordering Facility: [facility] Address: [address] [place] [address] Performed By: #### 1 9122-10, 03732-9 #### [facility] CLIA [id number] [address] [place] Hematocrit (Bld) [Volume fraction] 46.6 % Normal 39.0-51.0 [facility] Comment on above: Order Comment: Speci men Type: BLOOD SPECIMEN Ordering Facility: [facility] Address: [address] [place] [address] Performed By: #### 1 9, 81394-8 #### [facility] CLIA [id number] [address] Hemoglobin (Bld) [Mass/Vol] 16.0 g/dL Normal 13.0-17.0 [facility] Comment on above: Order Comment: Speci men Type: BLOOD SPECIMEN Ordering Facility: [facility] Address: [address] [place] [address] Performed By: #### 1 9122-10, #### [facility] [facility] CLIA [id number] [address] IMMATURE GRAN % 0.5 % Normal [facility] Comment on above: Order Comment: Speci men Type: BLOOD SPECIMEN Ordering Facility: [facility] Address: [address] [place] [address] Performed By: #### 1 9122-10, #### [facility] CLIA [id number] [address] IMMATURE GRAN ABS 0.08 k/uL Normal <0.10 [facility] Comment on above: Order Comment: Speci men Type: BLOOD SPECIMEN Ordering Facility: [facility] Address: [address] [place] [address] Performed By: #### 1 9122-10, #### [facility] CLIA [id number] [address] Lymphocytes (Bld) [#/Vol] 0.47 10*3/uL Low 1.00-4.00 [facility] Comment on above: Order Comment: Speci men Type: BLOOD SPECIMEN Ordering Facility: [facility] Address: [address] [place] [address] Performed By: #### 1 9122-10, #### [facility] CLIA [id number] [address] Lymphocytes/100 WBC (Bld) 2.9 % Normal [facility] Comment on above: Order Comment: Speci men Type: BLOOD SPECIMEN Ordering Facility: [facility] Address: [address] [place] [address] Performed By: #### 1 9122-10, #### [facility] CLIA [id number] [address] MCH (RBC) [Entitic mass] 31.1 pg Normal 26.0-34.0 [facility] Comment on above: Order Comment: Speci men Type: BLOOD SPECIMEN Ordering Facility: [facility] Address: [address] [place] [address] Performed By: #### 1 23-9, 57286-8 #### [facility] CLIA [id number] [address] MCHC (RBC) [Mass/Vol] 34.3 g/dL Normal 30.5-36.0 [facility] Comment on above: Order Comment: Speci men Type: BLOOD SPECIMEN Ordering Facility: [facility] Address: [address] [place] [address] Performed By: #### 1 9, 47863-7 #### [facility] CLIA [id number] [address] STATES [facility] MCV (RBC) [Entitic vol] 90.5 fL Normal 80.0-100.0 [facility] Comment on above: Order Comment: Speci men Type: BLOOD SPECIMEN Ordering Facility: [facility] Address: [address] [place] [address] Performed By: #### 1 239, 73554-0 #### [facility] CLIA [id number] [address] [place] Monocytes (Bld) [#/Vol] 1.18 10*3/uL High <0.87 [facility] Comment on above: Order Comment: Speci men Type: BLOOD SPECIMEN Ordering Facility: [facility] Address: [address] [place] [address] Performed By: #### 1 9, 24953-5 #### [facility] CLIA [id number] [address] Monocytes/100 WBC (Bld) 7.3 % Normal [facility] Comment on above: Order Comment: Speci men Type: BLOOD SPECIMEN Ordering Facility: [facility] Address: [address] [place] [address] Performed By: #### 1 9, 68092-3 #### [facility] CLIA [id number] [address] [place] [address] [place] Neutrophils (Bld) [#/Vol] 14.39 10*3/uL High 1.45-7.50 [facility] Comment on above: Order Comment: Speci men Type: BLOOD SPECIMEN Ordering Facility: [facility] Address: [address] [place] [address] Performed By: #### 1 9, 99039-5 #### [facility] CLIA [id number] [address] [place] [address] [place] Neutrophils/100 WBC (Bld) 88.8 % Normal [facility] Comment on above: Order Comment: Speci men Type: BLOOD SPECIMEN Ordering Facility: [facility] Address: [address] [place] [address] Performed By: #### 1 9, 04541-7 #### [facility] CLIA [id number] [address] [place] Nucleated RBC (Bld) [#/Vol] 10*3/uL Normal <0.01 [facility] Comment on above: Order Comment: Speci men Type: BLOOD SPECIMEN Ordering Facility: [facility] Address: [address] [place] [address] Performed By: #### 1 9122-10, 26209-0 #### [facility] CLIA [id number] [address] OF [facility] Nucleated RBC/100 WBC (Bld) [Ratio] 0.0 /100 WBC Normal [facility] Comment on above: Order Comment: Speci men Type: BLOOD SPECIMEN Ordering Facility: [facility] Address: [address] [address] Performed By: #### 1 23-9, 89066-4 #### [facility] CLIA [id number] [address] [place] Platelet mean volume (Bld) [Entitic vol] 10.0 fL Normal 9.0-12.7 [facility] Comment on above: Order Comment: Speci men Type: BLOOD SPECIMEN Ordering Facility: [facility] Address: [address] [place] [address] Performed By: #### 1 9123-9, 19532-1 #### [facility] CLIA [id number] [address] Platelets (Bld) [#/Vol] 141 10*3/uL Low 150-400 [facility] Comment on above: Order Comment: Speci men Type: BLOOD SPECIMEN Ordering Facility: [facility] Address: [address] [place] [address] Performed By: #### 1 9123-9, 18294-0 #### [facility] CLIA [id number] [address] [place] RBC (Bld) [#/Vol] 5.15 10*6/uL Normal 4.20-6.00 [facility] Comment on above: Order Comment: Speci men Type: BLOOD SPECIMEN Ordering Facility: [facility] Address: [address] [place] [address] Performed By: #### 1 9123-9, 52626-3 #### [facility] CLIA [id number] [address] OF [facility] WBC (Bld) [#/Vol] 16.21 10*3/uL High 3.70-11.00 [facility] Comment on above: Order Comment: Speci men Type: BLOOD SPECIMEN Ordering Facility: [facility] Address: [address] [place] [address] Performed By: #### 1 9123-9, 42961-1 #### [facility] CLIA [id number] [address] [place] [address] ABD/PEL W IVCONon 022 CT ABD/PEL W IVCON * * *Final Report* * * DATE OF EXAM: May 02 2021 12:07PM [facility] ABD/PEL W IVCON / PROCEDURE REASON: Abdominal pain, acute, nonlocalized * * * * Physician Interpretation * * * * EXAMINATION: CT ABDOMEN AND PELVIS WITH IV CONTRAST CLINICAL HISTORY: 65 years old Male with Abdominal pain, acute, nonlocalized. Review of electronic medical record states: Presenting with urinary frequency, dysuria, chills and fever. UA demonstrating. UTI. Leukocytosis. TECHNIQUE: CT of the abdomen and pelvis was performed using standard technique, scanning from just above the dome of the diaphragm to the symphysis pubis. MQ: CTAP_3 Contrast: IV: 150 ml of Omnipaque 300 Oral: None. CT Radiation dose: Integrated Dose-length product (DLP) for this visit = 640 mGy*cm. CT Dose Reduction Employed: Automated exposure control (AEC) COMPARISON: Urogram 10/26/2017 RESULT: Liver: No mass. Biliary: No bile duct dilation. Gallbladder is unremarkable. Spleen: No mass. No splenomegaly. Pancreas: No mass or duct dilation. Adrenals: No mass. Kidneys: Symmetric bilateral nephrograms. 2-3 mm calculus in the LEFT upper pole. Punctate calculus in the RIGHT lower pole (2:78, 4:62). No ureterolithiasis or hydronephrosis. 4.8 cm benign exophytic LEFT anterior interpolar cyst. Multiple additional subcentimeter hypoattenuating lesions in both kidneys, too small to characterize but likely benign. GI tract: No dilation or wall thickening. Normal appendix. Colonic diverticulosis without diverticulitis. Lymph nodes: No abdominal or pelvic lymphadenopathy. Mesentery/Peritoneum: No ascites or mass. Retroperitoneum: No mass. Vasculature: - Abdominal aorta and iliac arteries: Atherosclerotic calcifications. No abdominal aortic aneurysm. 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 - Celiac and SMA: Patent without stenosis. Fusiform dilation of the celiac access to 1.3 cm. - Portal venous system (SMV, splenic vein, portal vein and branches): Patent. - Hepatic veins: Patent. Pelvis: No mass, ascites or fluid collection. TURP defect in the prostatic urethra. Enlarged prostate. Bones/Soft Tissues: No suspicious osseous lesion. T12 and L2 intraosseous hemangiomata. Flowing ossifications of the anterior longitudinal ligament at the anterior aspect of multiple contiguous visualized thoracic vertebral bodies consistent with diffuse idiopathic skeletal hyperostosis. Degenerative changes of the lumbar spine. Bilateral hip osteoarthritis with chondrocalcinosis and subchondral cystic change in bilateral acetabula. Small fat-containing RIGHT inguinal and periumbilical hernias. Lower thorax: 2 mm nodule anterior LEFT lower lobe (2:22) is unchanged since 2018 and considered benign. No consolidation. No pleural effusion. Coronary artery atherosclerotic calcifications. Rn Bone Marrow Transplant (topogram) images: No additional findings. IMPRESSION: No acute process in the abdomen or pelvis. Small nonobstructing intrarenal calculi. [employer] Consultant: PSCShereen Transcribe Date/Time: May 02 2021 12:09P Dictated by : ROSA NOLAN DO This examination was interpreted and the report reviewed and electronically signed by: ROSA NOLAN DO on May 02 2021 12:55PM EST [id number] Normal [facility] Comprehensive metabolic 2000 panelon 05-02-2021 Albumin [Mass/Vol] 4.4 g/dL Normal 3.9-4.9 [facility] Comment on above: Order Comment: Speci men Type: BLOOD SPECIMEN Ordering Facility: [facility] Address: [address] [place] [address] Performed By: #### 1 9123-9, 00206-7 #### [facility] CLIA [id number] [address] STATES OF [facility] ALP [Catalytic activity/Vol] 110 U/L Normal 38-113 [facility] Comment on above: Order Comment: Speci men Type: BLOOD SPECIMEN Ordering Facility: [facility] Address: [address] [address] Performed By: #### 1 23-9, 02599-1 #### [facility] CLIA [id number] [address] ALT [Catalytic activity/Vol] 28 U/L Normal 10-54 [facility] Comment on above: Order Comment: Speci men Type: BLOOD SPECIMEN Ordering Facility: [facility] Address: [address] [address] Performed By: #### 1 23-9, 73055-1 #### [facility] CLIA [id number] [address] Anion gap [Moles/Vol] 10 mmol/L Normal 9-18 [facility] Comment on above: Order Comment: Speci men Type: BLOOD SPECIMEN Ordering Facility: [facility] Address: [address] [address] Performed By: #### 1 9123-9, 73540-5 #### [facility] CLIA [id number] [address] [place] [address] [place] AST [Catalytic activity/Vol] 23 U/L Normal 14-40 [facility] Comment on above: Order Comment: Speci men Type: BLOOD SPECIMEN Ordering Facility: [facility] Address: [address] [place] [address] Performed By: #### 1 9123-9, 30972-9 #### [facility] CLIA [id number] [address] [place] [address] [place] Bilirubin [Mass/Vol] 1.0 mg/dL Normal 0.2-1.3 [facility] Comment on above: Order Comment: Speci men Type: BLOOD SPECIMEN Ordering Facility: [facility] Address: [address] [place] [address] Performed By: #### 1 9123-9, 58701-7 #### [facility] CLIA [id number] [address] [place] [address] [place] [facility] Calcium [Mass/Vol] 8.9 mg/dL Normal 8.5-10.2 [facility] Comment on above: Order Comment: Speci men Type: BLOOD SPECIMEN Ordering Facility: [facility] Address: [address] [place] [address] Performed By: #### 1 9123-9, 27824-6 #### [facility] CLIA [id number] [address] [place] [address] [place] Chloride [Moles/Vol] 101 mmol/L Normal 97-105 [facility] Comment on above: Order Comment: Speci men Type: BLOOD SPECIMEN Ordering Facility: [facility] Address: [address] [place] [address] Performed By: #### 1 9123-9, 21144-9 #### [facility] CLIA [id number] [address] [place] [address] [place] CO2 [Moles/Vol] 25 mmol/L Normal 22-30 [facility] Comment on above: Order Comment: Speci men Type: BLOOD SPECIMEN Ordering Facility: [facility] Address: [address] [id number] Performed By: #### 1 9123-9, 29046-0 #### [facility] CLIA [id number] [address] STATES OF [facility] Creatinine [Mass/Vol] 0.89 mg/dL Normal 0.73-1.22 [facility] Comment on above: Order Comment: Jonathan chawla Type: BLOOD SPECIMEN Ordering Facility: [facility] Address: [address] [address] Performed By: #### 1 9123-9, 69227-8 #### [facility] CLIA [id number] [address] ESTIMATED GLOMERULAR FILTRATION RATE 95 mL/min/1.73m??? Normal >=60 [facility] Comment on above: Order Comment: Jonathan chawla Type: BLOOD SPECIMEN Ordering Facility: [facility] Address: [address] [place] [address] Result Comment: Joceline mated Glomerular Filtration Rate (eGFR) is calculated using the 2020 CKD-EPI creatinine equation. This equation utilizes serum creatinine, sex, and age as parameters. The creatinine assay has traceable calibration to isotope dilution-mass spectrometry. Refer to KDIGO guidelines for clinical interpretation. In patients with unstable renal function, e.g. those with acute kidney injury, the eGFR may not accurately reflect actual GFR. Performed By: #### 1 9123-9, 57908-0 #### [facility] CLIA [id number] [address] [place] Glucose [Mass/Vol] 127 mg/dL High 74-99 [facility] Comment on above: Order Comment: Jonathan chawla Type: BLOOD SPECIMEN Ordering Facility: [facility] Address: [address] [place], [place] [id number] Result Comment: The [place] Diabetes Association (ADA) provides guidance for cutoff values for fasting glucose and random glucose. The ADA defines fasting as no caloric intake for at least 8 hours. Fasting plasma glucose results between 100 to 125 mg/dL indicate increased risk for diabetes (prediabetes). Fasting plasma glucose results greater than or equal to 126 mg/dL meet the criteria for diagnosis of diabetes. In the absence of unequivocal hyperglycemia, results should be confirmed by repeat testing. In a patient with classic symptoms of hyperglycemia or hyperglycemic crisis, random plasma glucose results greater than or equal to 200 mg/dL meet the criteria for diagnosis of diabetes. Reference: Standards of Medical Care in Diabetes 2016, [place] [employer] Association. Diabetes Care. 2016.39(Suppl 1). Performed By: #### 1 23-9, 73254-7 #### [facility] CLIA [id number] [address] [place] [address] [place] Potassium [Moles/Vol] 3.8 mmol/L Normal 3.7-5.1 [facility] Comment on above: Order Comment: Samanthai men Type: BLOOD SPECIMEN Ordering Facility: [facility] Address: [address] [place] [address] Performed By: #### 1 9122-10, 64824-3 #### [facility] CLIA [id number] [address] [place] [address] [place] Protein [Mass/Vol] 6.7 g/dL Normal 6.3-8.0 [facility] Comment on above: Order Comment: Samanthai cammy Type: BLOOD SPECIMEN Ordering Facility: [facility] Address: [address] [place] [address] Performed By: #### 1 9122-10, 77554-6 #### [facility] CLIA [id number] [address] [place] [address] [place] Sodium [Moles/Vol] 136 mmol/L Normal 136-144 [facility] Comment on above: Order Comment: Samanthai men Type: BLOOD SPECIMEN Ordering Facility: [facility] Address: [address] [address] Performed By: #### 1 9122-10, 33562-9 #### [facility] CLIA [id number] [address] [place] [address] [place] Urea nitrogen [Mass/Vol] 10 mg/dL Normal 9-24 [facility] Comment on above: Order Comment: Samanthai men Type: BLOOD SPECIMEN Ordering Facility: [facility] Address: [address] [address] Performed By: #### 1 23, 03278-8 #### [facility] CLIA [id number] [address] [place] [address] [place] ED NOTEon 05-02-2021 ED NOTE HNO ID: [id number] Author: Azam Pal RN Service: Nursing Author Type: Registered Nurse Type: ED Notes Filed: 05/02/2021 1:40 PM Note Text: Report called to MOISE Mitchell on [address]. No questions at this time. [facility] ED NOTE HNO ID: [id number] Author: Beth Rocha RN Service: ? Author Type: Registered Nurse Type: ED Notes Filed: 05/02/2021 11:02 AM Note Text: Pt presents to the ED with CC of having urinary freq and burning that started last night as well as very bad chills, was seen at dr office this morning and was found to have a fever and UTI was sent in here for further evaluation, pt also had a recent exposure to a covid positive person [facility] ED PROV NOTEon 05-02-2021 ED PROV NOTE HNO ID: [id number] Author: Dariel Ring MD Service: Emergency Medicine Author Type: Physician Type: ED Provider Notes Filed: 05/02/2021 8:23 PM Note Text: ED Provider Note Patient Name: Edmundo Henao : 1955 SERVICE DATE: 05/02/21 History No chief complaint on file. 65 year old male h/o HTN presents to ED c/o fever and urinary frequency. Pt states last night started having fever and chills. Today pt has urinary frequency and dysuria. He has been having intermittent abdominal pain and diarrhea. Also reports h/o prostatitis, has testicular pain with sitting. Denies back pain, nausea, vomiting. Had tylenol for fever last night. History provided by: Significant other and patient PAST MEDICAL HISTORY Diagnosis Date - ASCVD (arteriosclerotic cardiovascular disease) - Chest pain - HTN (hypertension) PAST SURGICAL HISTORY Procedure Laterality Date - ACHILLES TENDON SURGERY HX Right Dr. Romero, tendon release - ARTHROSCOPY KNEE MEDIAL RELEASE Right Dr. Zhou - BACK SURGERY HX 1986 laminectomy - COLONOSCOPY FLX DX W/COLLJ SPEC WHEN PFRMD 07/2000 Colonoscopy - COLONOSCOPY W/BIOPSY SINGLE/MULTIPLE 08/26/11 - CORONARY ARTERY BYP W/VEIN AND ARTERY GRAFT 5 VEIN 2001 - HERNIA REPAIR HX Left x 2 - LASER ENUCLEATION PROSTATE W/MORCELLATION FAMILY HISTORY Problem Relation Age of Onset - Heart Father - Diabetes Father - other (hypercholes) Mother Social History Tobacco Use - Smoking status: Never Smoker - Smokeless tobacco: Never Used Substance and Sexual Activity - Alcohol use: No Comment: almost never - Drug use: No - Sexual activity: Not on file ALLERGIES Allergen Reactions - Ampicillin - Niacin Intolerance bladder irritation with frequency - Statins [Statins-Hm* Review of Systems Constitutional: Positive for chills, fatigue and fever. HENT: Negative. Respiratory: Negative. Cardiovascular: Negative. Gastrointestinal: Positive for abdominal pain. Genitourinary: Positive for dysuria, frequency and testicular pain. Musculoskeletal: Negative. Skin: Negative. Neurological: Negative. Hematological: Negative. Psychiatric/Behavioral: Negative. Physical Exam Vitals BP Pulse Temp Temp src Resp SpO2 Weight Height -- -- -- -- -- -- -- -- Physical Exam Vitals and nursing note reviewed. Constitutional: Appearance: Normal appearance. HENT: Head: Normocephalic and atraumatic. Mouth/Throat: Mouth: Mucous membranes are moist. Eyes: Extraocular Movements: Extraocular movements intact. Conjunctiva/sclera: Conjunctivae normal. Pupils: Pupils are equal, round, and reactive to light. Cardiovascular: Rate and Rhythm: Normal rate and regular rhythm. Pulses: Normal pulses. Heart sounds: Normal heart sounds. Pulmonary: Effort: Pulmonary effort is normal. Breath sounds: Normal breath sounds. Abdominal: General: There is no distension. Palpations: Abdomen is soft. Tenderness: There is no abdominal tenderness. There is no right CVA tenderness or left CVA tenderness. Musculoskeletal: Cervical back: Normal range of motion. Skin: General: Skin is warm and dry. Capillary Refill: Capillary refill takes less than 2 seconds. Neurological: Mental Status: He is alert and oriented to person, place, and time. Sensory: No sensory deficit. Motor: No weakness. Gait: Gait normal. Diagnostic Testing ED Labs Ordered and Reviewed - No data to display CT ABD/PEL W IVCON Final Result IMPRESSION: No acute process in the abdomen or pelvis. Small nonobstructing intrarenal calculi. [employer] Consultant: MAIKEL Transcribe Date/Time: May 02 2021 12:09P Dictated by : ROSA NOLAN DO This examination was interpreted and the report reviewed and electronically signed by: ROSA NOLAN DO on May 02 2021 12:55PM EST Procedures ED Course / Clinical Impression Clinical Impressions as of 05/02/21 1353 UTI (urinary tract infection) Fever and chills MDM / Disposition / Plan Course: 65 year old male presents c/o fever and dysuria. Vital signs were reviewed. Triage records were reviewed. Medical records were reviewed. Nursing notes were reviewed and incorporated. Fever, chills x 2 days with urinary frequency and dysuria. Also with diarrhea and intermittent abdominal pain. Febrile on arrival. Tylenol, motrin given. IVF started. Lactate 1.8. Leukocytosis, no anemia. Normal renal function. UA positive for infection, culture pending. Blood cultures pending. CT Abd/pel shows no acute process. No abscess. Discussed with pt. Started on rocephin. Plan to admit for further IV antibiotics. Discussed with hospitalist Dr. Boucher. The patient was ADMITTED TO: Regular nursing floor. Condition at time of disposition: stable SIGNATURE: YOSELYN Padilla PA-C 05/02/21 1357 Attending Note I have personally performed a face to face assessment of the patient and have reviewed the DEDRA not (more content not included)... Normal [facility] Gas and Carbon monoxide pane l (BldV)on 05-02-2021 Base excess Calc (BldV) [Moles/Vol] 1 mmol/L Normal 0-2 [facility] Comment on above: Order Comment: Jonathan chawla Type: VENOUS BLOOD SPECIMENOrdering Facility: [facility] Address: [address] [place] [address] Performed By: #### 2 4344-4 ####[facility] [id number] [id number] [place] [id number] Carboxyhemoglobin (BldV) [Mass fraction] 1.1 % Normal 0.0-2.0 [facility] Comment on above: Order Comment: Jonathan chawla Type: VENOUS BLOOD SPECIMENOrdering Facility: [facility] Address: [address] [place] [address] Result Comment: Carb oxyhemoglobin Reference Range for Smokers: 2.0-8.0% Performed By: #### 2 4344-4 ####[place] RESPIRATORYCLIA [id number] [facility]OS[facility] RESPIRATORY [id number] [address] [address] CO2 (BldV) [Partial pressure] 44 mm[Hg] Normal 42-55 [facility] Comment on above: Order Comment: Speci men Type: VENOUS BLOOD SPECIMENOrdering Facility: [facility] Address: [address] [address] Performed By: #### 2 4344-4 ####[facility] RESPIRATORYCLIA [id number] [facility] RESPIRATORY [id number] [address] CO2 adjusted to patient's actual temperature (BldV) [Partial pressure] Normal [facility] Comment on above: Order Comment: Speci men Type: VENOUS BLOOD SPECIMENOrdering Facility: [facility] Address: [address] [address] Performed By: #### 2 4344-4 ####[facility] RESPIRATORYIA [id number] [facility]OSPITAL RESPIRATORY [id number] [address] [address] HCO3 (Bld) [Moles/Vol] 26 mmol/L Normal 24-28 [facility] Comment on above: Order Comment: Speci men Type: VENOUS BLOOD SPECIMENOrdering Facility: [facility] Address: [address] [address] Performed By: #### 2 4344-4 ####[facility] RESPIRATORYCLIA [id number] [facility] RESPIRATORY [id number] [address] [address] Hemoglobin (Bld) [Mass/Vol] 16.5 g/dL Normal 13.0-17.0 [facility] Comment on above: Order Comment: Speci men Type: VENOUS BLOOD SPECIMENOrdering Facility: [facility] Address: [address] [address] Performed By: #### 2 4344-4 ####[facility] RESPIRATORYCLIA [id number] [facility]OSPITAL RESPIRATORY [id number] [address] [address] Lactate [Moles/Vol] 1.8 mmol/L Normal 0.5-2.2 [facility] Comment on above: Order Comment: Speci men Type: VENOUS BLOOD SPECIMENOrdering Facility: [facility] Address: [address] [address] Performed By: #### 2 4344-4 ####[facility] RESPIRATORYIA [id number] [facility]OSP[facility] RESPIRATORY [id number] [address] [address] O2 THERAPY RA=Room Air Normal [facility] Comment on above: Order Comment: Speci men Type: VENOUS BLOOD SPECIMENOrdering Facility: [facility] Address: [address] [place] [address] Result Comment: RA=R oom Air Performed By: #### 2 4344-4 ####[facility]ATORYR[facility]INGH[facility] [id number] HOSPITAL RESPIRATORY [id number] [address] [address] Oxygen (BldV) [Partial pressure] mm[Hg] Low 35-45 [facility] Comment on above: Order Comment: Speci men Type: VENOUS BLOOD SPECIMENOrdering Facility: [facility] Address: [address] [place] [address] Performed By: #### 2 4344-4 ####[facility] [id number] HOSPITAL RESPIRATORY [id number] [address] Oxygen adjusted to patient's actual temperature (BldV) [Partial pressure] Normal [facility] Comment on above: Order Comment: Speci men Type: VENOUS BLOOD SPECIMENOrdering Facility: [facility] Address: [address] Performed By: #### 2 4344-4 ####[facility]PIRATORYROCKINGHAM [facility] [id number] HOSPITAL RESPIRATORY [id number] [address] Oxyhemoglobin (BldV) [Mass fraction] 54 % Low 60-85 [facility] Comment on above: Order Comment: Speci men Type: VENOUS BLOOD SPECIMENOrdering Facility: [facility] Address: [address] [address] Performed By: #### 2 4344-4 ####[facility] RESPIRATORYCLIA [id number] [facility] RESPIRATORY [id number] [place] [address] pH (BldV) 7.39 [pH] Normal 7.32-7.42 [facility] Comment on above: Order Comment: Speci men Type: VENOUS BLOOD SPECIMENOrdering Facility: [facility] Address: [address] [place] [address] Performed By: #### 2 4344-4 ####[facility] RESPIRATORYCLIA [id number] [facility]OSP[facility] RESPIRATORY [id number] [address] [address] pH adjusted to patient's actual temperature (BldV) Normal [facility] Comment on above: Order Comment: Speci men Type: VENOUS BLOOD SPECIMENOrdering Facility: [facility] Address: [address] [place] [address] Performed By: #### 2 4344-4 ####[facility] RESPIRATORYCLIA [id number] [facility]OSPITAL RESPIRATORY [address] [address] Potassium [Moles/Vol] 3.8 mmol/L Normal 3.5-5.0 [facility] Comment on above: Order Comment: Speci men Type: VENOUS BLOOD SPECIMENOrdering Facility: [facility] Address: [address] [place] [address] Performed By: #### 2 4344-4 ####[facility] RESPIRATORYCLIA [id number] [facility] RESPIRATORY [id number] [address] HISTORY PHYSICALon HISTORY PHYSICAL HNO ID: [id number] Author: Dominique Boucher DO Service: Hospital Medicine Author Type: Physician Type: HANDP Filed: 05/02/2021 4:24 PM Note Text: DEPARTMENT OF HOSPITAL MEDICINE HISTORY AND PHYSICAL EXAM SERVICE DATE: 05/02/2021 Code Status: Not on file SERVICE TIME: 3:56 PM Primary Care Physician: Praveena Martinez DO NIGHT AND WEEKEND COVERAGE: [facility] COVERAGE: Days: [phone], please page attending physician. Nights: [phone], please page [place] [facility]ist Night coverage pager [phone]. Subjective CHIEF COMPLAINT: Urinary frequency, fever, chills, rigors, urinary burning HPI: This is a 65 year old male with past medical history of hypertension, coronary [...] complaint of urinary frequency, fever, chills, rigors, urinary burning with started last night and continued until this morning. Denies any hematuria. Denies any lower abdominal pain or back pain. Patient did have an episode of abdominal pain across his abdomen yesterday. Denies any chest pain or shortness of breath. Continues to have fevers and chills. This morning patient did have an episode of nausea however, no vomiting or abdominal pain. Denies any diarrhea. Denies any numbness, weakness, tingling, headache or blurry vision. In ED, patient noted to have elevated white count of 16.21, lactate of 1.8, temperature of 100.8, heart rate of 98, respiratory rate of 23, pulse ox of 93% on room air. UA with +2 hemoglobin, +2 leukoesterase, negative nitrites, WBC greater than 25, RBC of 6-10, moderate bacteria CT of abdomen pelvis showed no acute process in the abdomen or pelvis, small nonobstructing intrarenal calculi noted. Patient received 1 dose of IV ceftriaxone, normal saline 1000 mL bolus, 1 dose of ibuprofen 600 mg and Tylenol 650 mg 1 dose in the emergency room. PAST MEDICAL HISTORY Diagnosis Date - ASCVD (arteriosclerotic cardiovascular disease) - Chest pain - HTN (hypertension) PAST SURGICAL HISTORY Procedure Laterality Date - ACHILLES TENDON SURGERY HX Right Dr. Romero, tendon release - ARTHROSCOPY KNEE MEDIAL RELEASE Right Dr. Zhou - BACK SURGERY HX 1985 laminectomy - COLONOSCOPY FLX DX W/COLLJ SPEC WHEN PFRMD 07/2000 Colonoscopy - COLONOSCOPY W/BIOPSY SINGLE/MULTIPLE 08/26/11 - CORONARY ARTERY BYP W/VEIN AND ARTERY GRAFT 5 VEIN 2001 - HERNIA REPAIR HX Left x 2 - LASER ENUCLEATION PROSTATE W/MORCELLATION FAMILY HISTORY Problem Relation Age of Onset - Heart Father - Diabetes Father - other (hypercholes) Mother Social History Tobacco Use - Smoking status: Never Smoker - Smokeless tobacco: Never Used Substance Use Topics - Alcohol use: No Comment: almost never - Drug use: No PRIOR TO ADMISSION MEDICATIONS: aspirin 81 mg cap, Take 81 mg by mouth once daily. Takes periodically. Does Not take everyday. , Disp: , Rfl: atorvastatin (LIPITOR) 10 mg tablet, Take 10 mg by mouth once daily., Disp: , Rfl: , 05/02/2021 at Unknown time losartan (COZAAR) 50 mg tablet, Take 50 mg by mouth twice daily. , Disp: , Rfl: 2, 05/02/2021 at Unknown time VIT E ACETATE/VIT BCOMPANDC/ZINC (ZINC WITH VITAMINS ORAL), Take 1 capsule by mouth once daily. , Disp: , Rfl: ALLERGIES Allergen Reactions - Ampicillin Rash - Niacin Rash bladder irritation with frequency - Statins [Statins-Hm* Other: See Comments Ocular retinitis from Crestor REVIEW OF SYSTEM: PAIN ASSESSMENT: Negative for pain, history of chronic pain, or current treatment for a chronic pain condition. GENERAL: Positive for See HPI HEENT: Negative for frequent or significant headaches, No changes in hearing or vision, no nose bleeds or other nasal problems NECK: Negative for lumps, goiter, pain and significant neck swelling RESPIRATORY: Negative for cough, hemoptysis, wheezing, COPD, dyspnea or shortness of breath CARDIOVASCULAR: Negative for chest pain, leg swelling, hypertension, CHF or palpitations GI: No nausea, vomiting, or diarrhea : No history of dysuria, frequency or incontinence MUSCULOSKELETAL: Negative for joint pain or swelling, back pain or muscle pain SKIN: Negative for lesions, rash, and itching HEMATOLOGY/LYMPHOLOGY: Negative for prolonged bleeding, bruising easily or swollen nodes ENDOCRINE: Negative for cold or heat intolerance, polyuria, polydipsia and goiter NEURO: No history of headaches, syncope, paralysis, seizures or tremors Objective PHYSICAL EXAM: BP 133/74 Pulse 95 Temp (Src) 98.1 (Axillary) Resp 18 Ht 6' .5" (1.84m) Wt 234 lb 12.6 oz (106.5kg) SpO2 95% BMI 31.39 kg/(m2). O2 Therapy: Room Air Physical Exam Performed: GENERAL: Alert, no distress, cooperative SKIN: Skin col (more content not included)... Normal [facility] Magnesium SerPl-mCncon 05-02 Magnesium [Mass/Vol] 1.7 mg/dL Normal 1.7-2.3 [facility] Comment on above: Order Comment: Speci men Type: BLOOD SPECIMEN Ordering Facility: [facility] Address: [address] [place] [address] [address] [place] [address] Performed By: #### 1 9123-9, 74985-1 #### [facility] CLIA [id number] [address] [place] [address] [place] SARS-CoV-2 RNA Resp Ql KOSTAS+p robeon 05-02-2021 SARS-CoV-2 (COVID-19) RNA KOSTAS+probe Ql (Resp) COVID 19 RESULT: SARS-CoV-2 (Agent of COVID-19) Not Detected by RT-PCR or equivalent method. This test has been authorized by FDA under an Emergency Use Authorization (EUA). Normal [facility] Comment on above: Performed By: #### 9 4500-6 ####[facility] LABORATORYCLIA [id number] [place] [address] [place] UA DIP, URINE (POC)on 2021 BILIRUBIN UA (POCT) Negative Negative [facility] CLARITY UA (POCT) Cloudy [facility] COLOR UA (POCT) Yellow [facility] GLUCOSE UA (POCT) Negative Negative mg/dL [facility] HEMOGLOBIN/BLOOD UA (POCT) Moderate Abnormal Negative [facility] KETONE UA (POCT) Negative Negative mg/dL [facility] LEUKOCYTES UA (POCT) Moderate Abnormal Negative [facility] NITRITE UA (POCT) Negative Negative [facility] PH UA (POCT) 7.0 4.5 - 8.0 [facility] Protein Ql (U) Negative Negative mg/dL [facility] SPECIFIC GRAVITY UA (POCT) 1.020 1.005 - 1.030 [facility] UROBILINOGEN UA (POCT) 0.2 E.U./dL Normal E.U./dL [facility] URINALYSIS, REFLEX MICROSCOP ICon 05-02-2021 Bacteria LM.HPF (Urine sed) [#/Area] Moderate Abnormal None Seen [facility] Comment on above: Order Comment: Speci men Type: URINE SPECIMENOrdering Facility: [facility] Address: [address] [place] [address] Performed By: #### L [id number] ####[facility] LABORATORYCLIA [id number] [place] [address] [place] Bilirubin Ql (U) Negative Normal Negative [facility] Comment on above: Order Comment: Speci men Type: URINE SPECIMENOrdering Facility: [facility] Address: [address] [place] [address] Performed By: #### L [id number] ####[facility] LABORATORYCLIA [id number] [address] [place] Clarity (Unsp spec) Cloudy Abnormal Clear [facility] Comment on above: Order Comment: Speci men Type: URINE SPECIMENOrdering Facility: [facility] Address: [address] [place] [address] Performed By: #### L [id number] ####[facility] LABORATORYCLIA [id number] [place] [address] [place] Color (U) Yellow Normal Yellow [facility] Comment on above: Order Comment: Speci men Type: URINE SPECIMENOrdering Facility: [facility] Address: [address] [place] [address] Performed By: #### L [id number] ####[facility] LABORATORYCLIA [id number] [address] [place] Glucose Test strip (U) [Mass/Vol] Negative Normal Negative [facility] Comment on above: Order Comment: Speci men Type: URINE SPECIMENOrdering Facility: [facility] Address: [address] [place] [address] Performed By: #### L [id number] ####[facility] LABORATORYCLIA [id number] [address] [place] Hemoglobin Ql (U) 2+ Abnormal Negative [facility] Comment on above: Order Comment: Speci men Type: URINE SPECIMENOrdering Facility: [facility] Address: [address] [place] [address] Performed By: #### L [id number] ####G[facility] LABORATORYCLIA [id number] [address] Ketones Ql (U) Negative Normal Negative [facility] Comment on above: Order Comment: Speci men Type: URINE SPECIMENOrdering Facility: [facility] Address: [address] [place] [address] Performed By: #### L [id number] ####G[facility] LABORATORYCLIA [id number] [address] [place] Leukocyte esterase Test strip Ql (U) 2+ Abnormal Negative [facility] Comment on above: Order Comment: Speci men Type: URINE SPECIMENOrdering Facility: [facility] Address: [address] [place] [address] Performed By: #### L [id number] ####[facility] LABORATORYCLIA [id number] [place] [address] [place] Nitrite Ql (U) Negative Normal Negative [facility] Comment on above: Order Comment: Speci men Type: URINE SPECIMENOrdering Facility: [facility] Address: [address] [place] [address] Performed By: #### L [id number] ####[facility] LABORATORYCLIA [id number] [place] [address] [place] pH (U) 6.0 [pH] Normal 5.0-8.0 [facility] Comment on above: Order Comment: Speci men Type: URINE SPECIMENOrdering Facility: [facility] Address: [address] [place] [address] Performed By: #### L [id number] ####[facility] LABORATORYCLIA [id number] [place] [address] [place] Protein (U) [Mass/Vol] Normal [facility] Comment on above: Order Comment: Speci men Type: URINE SPECIMENOrdering Facility: [facility] Address: [address] [place] [address] Result Comment: Visi ble blood causes falsely elevated results for analyte Protein. Due to this limitation, Protein will not be reported for patients whose urine contains visible blood. Performed By: #### L [id number] ####[facility] LABORATORYCLIA [id number] [address] RBC LM.HPF (Urine sed) [#/Area] 6-10 /HPF Abnormal 0-3 /HPF [facility] Comment on above: Order Comment: Speci men Type: URINE SPECIMENOrdering Facility: [facility] Address: [address] [place] [address] Performed By: #### L [id number] ####[facility] LABORATORYCLIA [id number] [address] Specific gravity (U) [Rel density] 1.020 Normal 1.005-1.030 [facility] Comment on above: Order Comment: Speci men Type: URINE SPECIMENOrdering Facility: [facility] Address: [address] [place] [address] Performed By: #### L [id number] ####[facility] LABORATORYCLIA [id number] [address] Urobilinogen Ql (U) 0.2 EU/dL Normal 0.2-1.0 EU/dL [facility] Comment on above: Order Comment: Speci men Type: URINE SPECIMENOrdering Facility: [facility] Address: [address] [place] [address] Performed By: #### L [id number] ####[facility] LABORATORYCLIA [id number] [address] WBC LM.HPF (Urine sed) [#/Area] /[HPF] Abnormal 0-5 /HPF [facility] Comment on above: Order Comment: Speci men Type: URINE SPECIMENOrdering Facility: [facility] Address: [address] [place] [address] Performed By: #### L [id number] ####[facility] LABORATORYCLIA [id number] [address] CNOVon 11-07-2017 CNOV Office Visit (AKURFL) EDMUNDO HENAO ([id number]) 1955 M NFRDate Time Provider Jzhhputmjx11/2/18 9:30 AM DAVID ESQUIVEL During your visit today, we recorded the following information about you:David Esquivel DO, MBA 11/07/2017 11:54 AM Signed??[facility] InstitutePAULDING [facility]OLOGICAL AND KIDNEY INSTITUTELOCATION: [address] [place], [place] [id number] PROCEDURE NOTE:Edmundo Henao is a 62 year old male who presents with hematuria gross forcystoscopy.Pt ID verified with patient: YesProcedure verified with patient: YesProcedure confirmed with physician and technician support engineer: YesSign InHistory and Physical Exam reviewed and is unchanged. .Informed Consent Discussed: Yes. Risks, benefits, alternatives and personneldiscussed with patient who consents to proceed.Sign in Communication: CompletedTime Out: Team Confirms the Correct Patient, Correct Procedure; Cystoscopy,Correct Site and Site Marking, Correct Position (if applicable).Affirmation of Time Out: YesSign Out: Sign Out Discussion: CompletedPhysician: David Esquivel DO, MBAA urinalysis was performed revealing no evidence of infection.The benefits, risks, alternatives of the cystoscopy procedure and personnelwere discussed with the patient. The verbal consent was obtained and thepatient agrees to proceed.Procedure: The patient was placed on the procedure table in the supine positionand prepped and draped in the usual sterile fashion. 2% Lidocaine Jelly wasplaced per urethra as an anesthetic in the standard fashion. Once adequatelocal anesthesia was achieved, the tip of the flexible cystoscope was carefullyplaced into the urethra under direct visual guidance. The scope was negotiatedthrough the pendulous urethra to the level of the bulbar urethra with noevidence of stricture. The verumontanum came into view and the scope wasnegotiated through the prostatic urethra which showed evidence of tri lobarocclusive disease. The bladder was entered and careful grady endoscopy wascarried out. The posterior, superior and lateral vail and dome of the bladderwere all well visualized and the scope was retroflexed upon itself. Thefindings were consistent with no evidence of bladder mucosal pathology.Previous TUR defect at bladder neck. Large intravesical prostate present.Prostate varices.At the conclusion of the procedure, the flexible cystoscope was removedatraumatically. The patient tolerated the procedure without complications.Patient was given standard post-procedure instructions, and was directed tocomplete the course of oral antibiotics and increase oral fluid intake asdirected.ASSESSMENT/PLAN :Gross rhwxalpip230 gram prostate previously with hx of PVP with Dr. HullUrine clear nowCT urogram negative and reviewed with patientCytology negative alsoPSA 6.81 - stableF/U with TOM Puentes in 1 year with Marcela Esquivel DO MBAReferring Provider: SAIRA PUENTES) [[id number]]Allergies As of Date: 11/07/2017 Noted Allergy ReactionAMPICILLIN 11/16/2005NIACIN 11/16/2005 5 - Intolerance Comments: bladder irritation with frequencySTATINS (LFBCWLA-FAT-UBR REDUCTAS*11/16/2005Date Reviewed: 11/07/2017Reviewed by: David Esquivel - Fully AssessedReason for Visit: Cystoscopy-1 [303]Primary Visit Diagnosis:Gross hematuria [R31.0] Other Visit Diagnoses:BPH with obstruction/lower urinary tract symptoms [N40.1, 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 #:[id number] -LABPrescriptions as of 11/07/2017 Sig: ATORVASTATIN 10 MG TABLET Take 10 mg by mouth once tamar* LOSARTAN 50 MG TABLET Take 50 mg by mouth once tamar* CARVEDILOL 3.125 MG TABLET Take 3.125 mg by mouth twice * SIMVASTATIN 5 MG TABLET Take 5 mg by mouth daily at b* ZINC WITH VITAMINS ORAL Take 1 capsule by mouth once * FLAXSEED OIL 1,000 MG CAPSULE Take 1,000 mg by mouth once d* * ASPIRIN 325 MG TABLET Take one(1) tablet daily by m* OXYCODONE-ACETAMINOPHEN 5 MG-* Take 1 tablet by mouth every * Patient not taking: Reported on 11/07/2017Problem List As Of Date 11/07/2017 Noted Resolved Hyperlipidemia [E78.5] INVALID FOR* Benign neoplasm of rectum and anal canal [D12.8*INVALID FOR* BPH with obstruction/lower urinary tract sympto*INVALID FOR* Gross hematuria [R31.0] INVALID FOR*Prescriptions ordered this encounter Disp Refills Start End CIPROFLOXACIN 500 MG TABLET 11/07/2017 11/07/2017 Route: ORAL LIDOCAINE 2 % MUCOSAL JELLY IN APPLI* 11/07/2017 11/07/2017 Route: URETHRALFollow-up and Disposition History RecordedLetter TextEncounter Number: [id number] Status:Closed by DAVID ESQUIVEL on 11/07/17 Normal [facility] PROCEDUREon 11-07-2017 Protein mass conc HNO ID: [id number] thor: David EsquivelSer: (none)Author Type: PhysicianType: ProceduresFiled: 11/07/2017 11:54 AMNote Text:??[facility] InstituteUNIVERSITY H[facility] UROLOGYGBAPTIST REST[facility] UROLOGICAL AND KIDNEY INSTITUTELOCATION: [address] [place] [id number] PROCEDURE NOTE:Edmundo Henao is a 62 year old male who presents with hematuria grossfor cystoscopy.Pt ID verified with patient: YesProcedure verified with patient: YesProcedure confirmed with physician and technician support engineer: YesSign InHistory and Physical Exam reviewed and is unchanged. .Informed Consent Discussed: Yes. Risks, benefits, alternatives andpersonnel discussed with patient who consents to proceed.Sign in Communication: CompletedTime Out: Team Confirms the Correct Patient, Correct Procedure;Cystoscopy, Correct Site and Site Marking, Correct Position (ifapplicable).Affirmation of Time Out: YesSign Out: Sign Out Discussion: CompletedPhysician: David Esquivel DO, MBAA urinalysis was performed revealing no evidence of infection.The benefits, risks, alternatives of the cystoscopy procedure andpersonnel were discussed with the patient. The verbal consent was obtainedand the patient agrees to proceed.Procedure: The patient was placed on the procedure table in the supineposition and prepped and draped in the usual sterile fashion. 2% LidocaineJelly was placed per urethra as an anesthetic in the standard fashion.Once adequate local anesthesia was achieved, the tip of the flexiblecystoscope was carefully placed into the urethra under direct visualguidance. The scope was negotiated through the pendulous urethra to thelevel of the bulbar urethra with no evidence of stricture. Theverumontanum came into view and the scope was negotiated through theprostatic urethra which showed evidence of tri lobar occlusive disease.The bladder was entered and careful grady endoscopy was carried out. Theposterior, superior and lateral vail and dome of the bladder were allwell visualized and the scope was retroflexed upon itself. The findingswere consistent with no evidence of bladder mucosal pathology. PreviousTUR defect at bladder neck. Large intravesical prostate present.Prostate varices.At the conclusion of the procedure, the flexible cystoscope was removedatraumatically. The patient tolerated the procedure without complications.Patient was given standard post-procedure instructions, and was directedto complete the course of oral antibiotics and increase oral fluid intakeas directed.ASSESSMENT/PLAN:Ada eva [id number] gram prostate previously with hx of PVP with Dr. HullUrine clear nowCT urogram negative and reviewed with patientCytology negative alsoPSA 6.81 - stableF/U with TOM Puentes in 1 year with PSADavid Esquivel DO, MBA Normal [facility] Clinical Lists Update: Clini juli Noteon 12-20-2016 Left ventricular Ejection fraction 50 % Invalid Interpretation Code Reactivity Work Phone: Replaced Document: Rafaela MITCHELL Observationson 12-01-2016 electrocardiogram interpretation Sinus Rhythm -RSR(V1) -nondiagnostic. PROBABLY NORMAL Invalid Interpretation Code Reactivity Work Phone: GE use only - for [employer] import when terms are not otherwise specified 396 ms Invalid Interpretation Code Reactivity Work Phone: [phone] Heart rate 73 /min Invalid Interpretation Code Reactivity Work Phone: [phone] P wave axis, electrocardiogram 16 deg Invalid Interpretation Code Reactivity Work Phone: [phone] MS interval, electrocardiogram 152 ms Invalid Interpretation Code Reactivity Work Phone: [phone] QRS axis, electrocardiogram -1 deg Invalid Interpretation Code Reactivity Work Phone: [phone] QRS duration, electrocardiogram 102 ms Invalid Interpretation Code Reactivity Work Phone: [phone] QT interval, electrocardiogram new path ms Invalid Interpretation Code Reactivity Work Phone: [phone] T wave axis, electrocardiogram 37 deg Invalid Interpretation Code Reactivity Work Phone: [phone] Clinical Lists Update: [facility] 09-15-2016 Albumin [Mass/Vol] 4.1 g/dL Invalid Interpretation Code Reactivity Work Phone: [phone] ALP (Bld) [Catalytic activity/Vol] 105 U/L Invalid Interpretation Code Reactivity Work Phone: [phone] ALT [Catalytic activity/Vol] 35 U/L Invalid Interpretation Code Reactivity Work Phone: [phone] AST [Catalytic activity/Vol] 25 U/L Invalid Interpretation Code [facility] Phone: [phone] Bilirubin [Mass/Vol] 0.6 mg/dL Invalid Interpretation Code Reactivity Work Phone: [phone] Bilirubin.direct [Mass/Vol] 0.1 mg/dL Invalid Interpretation Code Reactivity Work Phone: [phone] Bilirubin.indirect [Mass/Vol] 0.5 mg/dL Invalid Interpretation Code Reactivity Work Phone: [phone] Cholesterol [Mass/Vol] 180 mg/dL Invalid Interpretation Code Reactivity Work Phone: [phone] Cholesterol in HDL [Mass/Vol] 31 mg/dL Low Reactivity Work Phone: [phone] Cholesterol in LDL [Mass/Vol] 118 mg/dL Invalid Interpretation Code Reactivity Work Phone: [phone] Protein [Mass/Vol] 6.2 g/dL Invalid Interpretation Code Reactivity Work Phone: [phone] Triglyceride [Mass/Vol] 157 mg/dL High [facility] Phone: [phone] Clinical Lists Update: Prelo esthetician spa 05-15-2015 Left ventricular Ejection fraction 45 % Invalid Interpretation Code [facility] Phone: [phone] Office Visiton 03-12-2015 Tobacco use status [facility] Never smoker Invalid Interpretation Code Reactivity Work Phone: [phone]) Lab Report: Basic Metabolic Profile (BMP)on 11-10-2014 Anion gap [Moles/Vol] 9 mmol/L Invalid Interpretation Code 5-15 [facility] Phone: [phone] Calcium [Mass/Vol] 9.0 mg/dL Invalid Interpretation Code 8.5-10.1 Reactivity Work Phone: [phone] Chloride [Moles/Vol] 107 mmol/L Invalid Interpretation Code 98-107 Reactivity Work Phone: [phone] CO2 (BldV) [Partial pressure] 26.0 mmol/L Invalid Interpretation Code 21.0-32.0 [facility] Phone: [phone] Creatinine [Mass/Vol] 0.79 mg/dL Invalid Interpretation Code 0.70-1.30 [facility] Phone: [phone] GFR/1.73 sq M.predicted among non-blacks MDRD (S/P/Bld) [Vol rate/Area] 106 mL/min/{1.73_m2} Invalid Interpretation Code >60 Reactivity Work Phone: [phone] Glomerular Filtration rate 128 mL/min Invalid Interpretation Code >60 [facility] Phone: [phone] Glucose [Mass/Vol] 105 mg/dL Invalid Interpretation Code 70-110 Reactivity Work Phone: [phone] Potassium [Moles/Vol] 4.3 mmol/L Invalid Interpretation Code 3.5-5.1 [facility] Phone: [phone] Sodium [Moles/Vol] 142 mmol/L Invalid Interpretation Code 136-145 Reactivity Work Phone: [phone] Urea nitrogen [Mass/Vol] 13 mg/dL Invalid Interpretation Code 7-18 Reactivity Work Phone: [phone] Urea nitrogen/Creatinine [Mass ratio] 16.5301680 mg/mg Invalid Interpretation Code 10-20 Reactivity Work Phone: [phone] Lab Report: CBC W/Diff, Auto matedon 11-10-2014 Absolute Neutrophil count 5.0 X10 3/UL Invalid Interpretation Code 2.0-7.7 Reactivity Work Phone: [phone] Basophils/100 WBC (Bld) 0.3 % Invalid Interpretation Code 0-1 Reactivity Work Phone: [phone] Eosinophils/100 WBC (Bld) 2.1 % Invalid Interpretation Code 0-5 [facility] Phone: [phone] Erythrocyte distribution width (RBC) [Ratio] 13.4 % Invalid Interpretation Code 11.6-14.6 [facility] Phone: [phone] Hematocrit (Bld) [Volume fraction] 46.4 % Invalid Interpretation Code 40-54 Reactivity Work Phone: [phone] Hemoglobin (Bld) [Mass/Vol] 16.3 g/dL Invalid Interpretation Code 13.0-16.5 [facility] Phone: [phone] Immature granulocytes/100 WBC (Bld) 0.300 % Invalid Interpretation Code 0.0-0.9 [facility] Phone: [phone] Lymphocytes (Bld) [#/Vol] 1.21 X10 3/UL Invalid Interpretation Code 0.83-4.51 [facility] Phone: [phone] Lymphocytes/100 WBC (Bld) 17.3 % Low 19-41 Reactivity Work Phone: [phone] MCH (RBC) [Entitic mass] 31.3 pg Invalid Interpretation Code 27.0-32.0 [facility] Phone: [phone] MCV (RBC) [Entitic vol] 89.2 fL Invalid Interpretation Code 80-94 Reactivity Work Phone: [phone] mean corpuscular hemoglobin concentration, RBC 35.1 G/GL Invalid Interpretation Code 32-36 [facility] Phone: [phone] Monocytes/100 WBC (Bld) 7.9 % Invalid Interpretation Code 0-10 [facility] Phone: [phone] Neutrophils/100 WBC (Bld) 72.1 % High 47-70 [facility] Phone: [phone] Platelet mean volume (Bld) [Entitic vol] 10.2 fL Invalid Interpretation Code 6.2-12.0 [facility] Phone: [phone] Platelets (Bld) [#/Vol] 164 10*3/uL Invalid Interpretation Code 150-450 [facility] Phone: [phone] RBC (Bld) [#/Vol] 5.20 10*6/uL Invalid Interpretation Code 4.6-6.2 [facility] Phone: [phone] red blood cell distribution width, size density 43.5 fL Invalid Interpretation Code 35.1-43.9 [facility] Phone: [phone] WBC (Bld) [#/Vol] 7.0 10*3/uL Invalid Interpretation Code 4.4-11.0 [facility] Phone: [phone] Lab Report: Magnesiumon Magnesium [Mass/Vol] 2.0 mg/dL Invalid Interpretation Code 1.8-2.4 [facility] Phone: [phone]) Lab Report: Thyroid Stim Hor derrick (TSH)on 11-10-2014 TSH Qn 2.91 m[IU]/L Invalid Interpretation Code 0.358-3.74 [facility] Phone: [phone] Office Visiton 04-22-2014 Tobacco smoking status Never Invalid Interpretation Code [facility] Phone: [phone]) Lab Report: Lipid Profileon 01-27-2014 Lipoprotein.pre-beta [Mass/Vol] 42 mg/dL Critically high 5-40 [facility] Phone: [phone] Lab Report: Liver Profileon 01-27-2014 GE use only - for [employer] import when terms are not otherwise specified 106 U/L Invalid Interpretation Code 50-136 Reactivity Work Phone: [phone] Globulin (S) [Mass/Vol] 3.4 g/dL Invalid Interpretation Code 2.7-4.2 Reactivity Work Phone: [phone] Office Visiton 01-22-2014 cardiac risk group C Invalid Interpretation Code Reactivity Work Phone: [phone] General cardiovascular disease 10Y risk [#] [place] o N/A Invalid Interpretation Code Reactivity Work Phone: [phone] Replaced Document: Priyamark E CG Observationson 01-22-2014 electrocardiogram interpretation Atrial flutter-fibrillation -RSR(V1) -nondiagnostic. ABNORMAL RHYTHM Invalid Interpretation Code Reactivity Work Phone: [phone] Heart rate 79 /min Invalid Interpretation Code Reactivity Work Phone: [phone] P wave axis, electrocardiogram -1 deg Invalid Interpretation Code [facility] Work Phone: [phone] MS interval, electrocardiogram 0 ms Invalid Interpretation Code Reactivity Work Phone: [phone] QRS axis, electrocardiogram -1 deg Invalid Interpretation Code Reactivity Work Phone: [phone] QRS duration, electrocardiogram 102 ms Invalid Interpretation Code Reactivity Work Phone: [phone] QT interval, electrocardiogram new path ms Invalid Interpretation Code Reactivity Work Phone: [phone] T wave axis, electrocardiogram -1 deg Invalid Interpretation Code Reactivity Work Phone: [phone] Vital Signs Date Time Vital Sign Value Performing Clinician Facility 09-20-2024 08:50-0400 Body height 182.[address] Steven Simpson MD Work Phone: [facility] 09-20-2024 08:50-0400 Body mass index (BMI) [Ratio] 29.8 kg/m2 Dr. Steven Simpson MD Work Phone: [facility] 09-20-2024 08:50-0400 Body weight 99.[address] Steven Simpson MD Work Phone: [facility] 08-14-2024 09:00-0400 Body height 182.[address] Praveena Martinez DO Work Phone: [facility] 08-14-2024 09:00-0400 Body mass index (BMI) [Ratio] 29.9 kg/m2 Dr. Praveena Martinez DO Work Phone: [facility] 08-14-2024 09:00-0400 Body weight 100.[address] Praveena Martinez DO Work Phone: [facility] 05-01-2024 15:52-0400 Diastolic blood pressure 76 mm[Hg] Dr. Praveena Martinez DO Work Phone: [facility] 05-01-2024 15:52-0400 Heart rate 76 /min Dr. Praveena Martinez DO Work Phone: [facility] 05-01-2024 15:52-0400 Systolic blood pressure 141 mm[Hg] Dr. Praveena Martinez DO Work Phone: [facility] 05-01-2024 15:20-0400 Body height 182.[address] Praveena Martinez DO Work Phone: [facility] 05-01-2024 15:20-0400 Body mass index (BMI) [Ratio] 30.6 kg/m2 Dr. Praveena Martinez DO Work Phone: [facility] 05-01-2024 15:20-0400 Body weight 102.[address] Praveena Martinez DO Work Phone: [facility] 05-01-2024 15:20-0400 Respiratory rate 16 /min Dr. Praveena Martinez DO Work Phone: [facility] 05-04-2023 14:44-0400 Body height 182.[address] Praveena Martinez Work Phone: [facility] 05-04-2023 14:44-0400 Body mass index (BMI) [Ratio] 31.8 kg/m2 Dr. Praveena Martinez Work Phone: [facility] 05-04-2023 14:44-0400 Body weight 106.[address] Praveena Martinez Work Phone: [facility] 05-04-2023 14:44-0400 Diastolic blood pressure 84 mm[Hg] Dr. Praveena Martinez Work Phone: [facility] 05-04-2023 14:44-0400 Heart rate 84 /min Dr. Praveena Martinez Work Phone: [facility] 05-04-2023 14:44-0400 Respiratory rate 16 /min Dr. Praveena Martinez Work Phone: [facility] 05-04-2023 14:44-0400 Systolic blood pressure 154 mm[Hg] Dr. Praveena Martinez Work Phone: [facility] 04-02-2023 08:35-0500 Body temperature 101.8 [degF] Hoa Cheyenne [employer]ICKET PRINTER AND TAGGER.CONSTRUCTION ELECTRICIAN Work Phone: [facility] 04-02-2023 08:35-0500 Body weight 107.41 kg Hoa Cheyenne TICKET PRINTER AND TAGGER.CONSTRUCTION ELECTRICIAN Work Phone: [facility] 04-02-2023 08:35-0500 Diastolic blood pressure 82 mm[Hg] Hoa Cheyenne TICKET PRINTER AND TAGGER.CONSTRUCTION ELECTRICIAN Work Phone: [facility] 04-02-2023 08:35-0500 Heart rate 72 /min Hoa Cheyenne TICKET PRINTER AND TAGGER.CONSTRUCTION ELECTRICIAN Work Phone: [facility] 04-02-2023 08:35-0500 Respiratory rate 16 /min Hoa Cheyenne TICKET PRINTER AND TAGGER.CONSTRUCTION ELECTRICIAN Work Phone: [facility] 04-02-2023 08:35-0500 SaO2% (BldA) [Mass fraction] 96 % Hoa Cheyenne TICKET PRINTER AND TAGGER.CONSTRUCTION ELECTRICIAN Work Phone: [facility] 04-02-2023 08:35-0500 Systolic blood pressure 144 mm[Hg] Hoa Cheyenne TICKET PRINTER AND TAGGER.CONSTRUCTION ELECTRICIAN Work Phone: [facility] 04-28-2022 14:29-0400 Body height 182.[address] Praveena Martinez Work Phone: [facility] 04-28-2022 14:29-0400 Body mass index (BMI) [Ratio] 31.1 kg/m2 Dr. Praveena Martinez Work Phone: [facility] 04-28-2022 14:29-0400 Body weight 104.[address] Praveena Martinez Work Phone: [facility] 04-28-2022 14:29-0400 Diastolic blood pressure 82 mm[Hg] Dr. Praveena Martinez Work Phone: [facility] 04-28-2022 14:29-0400 Heart rate 77 /min Dr. Praveena Martinez Work Phone: [facility] 04-28-2022 14:29-0400 Respiratory rate 16 /min Dr. Praveena Martinez Work Phone: [facility] 04-28-2022 14:29-0400 Systolic blood pressure 128 mm[Hg] Dr. Praveena Martinez Work Phone: [facility] 01-05-2022 07:53-0500 Body temperature 98.01 [degF] Hitesh Blair TICKET PRINTER AND TAGGER.CONSTRUCTION ELECTRICIAN Work Phone: [facility] 01-05-2022 07:53-0500 Diastolic blood pressure 82 mm[Hg] Hitesh Blair TICKET PRINTER AND TAGGER.CONSTRUCTION ELECTRICIAN Work Phone: [facility] 01-05-2022 07:53-0500 Heart rate 95 /min Hitesh Blair TICKET PRINTER AND TAGGER.CONSTRUCTION ELECTRICIAN Work Phone: [facility] 01-05-2022 07:53-0500 Respiratory rate 18 /min Hitesh Blair TICKET PRINTER AND TAGGER.CONSTRUCTION ELECTRICIAN Work Phone: [facility] 01-05-2022 07:53-0500 SaO2% (BldA) [Mass fraction] 95 % Hitesh Blair TICKET PRINTER AND TAGGER.CONSTRUCTION ELECTRICIAN Work Phone: [facility] 01-05-2022 07:53-0500 Systolic blood pressure 138 mm[Hg] Hitesh Reyesdianne ASHTON Work Phone: [facility] 10-22-2021 08:35-0400 Body height 185.4 cm Giovany Lal MD Work Phone: [facility] 10-22-2021 08:35-0400 Body temperature 97.11 [degF] Giovany Lal MD Work Phone: [facility] 10-22-2021 08:35-0400 Body weight 103.87 kg Giovany Lal MD Work Phone: [facility] 10-22-2021 08:35-0400 Diastolic blood pressure 88 mm[Hg] Giovany Lal MD Work Phone: [facility] 10-22-2021 08:35-0400 Heart rate 87 /min Giovany Lal MD Work Phone: [facility] 10-22-2021 08:35-0400 SaO2% (BldA) [Mass fraction] 96 % Giovany Lal MD Work Phone: [facility] 10-22-2021 08:35-0400 Systolic blood pressure 148 mm[Hg] Giovany Lla MD Work Phone: [facility] 10-14-2021 10:58-0400 Diastolic blood pressure 73 mm[Hg] Giovany Lal MD Work Phone: [facility] 10-14-2021 10:58-0400 Heart rate 73 /min Giovany Lal MD Work Phone: [facility] 10-14-2021 10:58-0400 Respiratory rate 16 /min Giovany Lal MD Work Phone: [facility] 10-14-2021 10:58-0400 SaO2% (BldA) [Mass fraction] 93 % Giovany Lal MD Work Phone: [facility] 10-14-2021 10:58-0400 Systolic blood pressure 130 mm[Hg] Giovany Lal MD Work Phone: [facility] 10-14-2021 09:19-0400 Body temperature 97.5 [degF] Giovany Lal MD Work Phone: [facility] 10-14-2021 09:19-0400 Body weight 103.9 kg Giovany Lal MD Work Phone: [facility] 09-01-2021 08:41-0400 Body height 182.9 cm Abril Aspen PA-C Work Phone: [facility] 09-01-2021 08:41-0400 Body temperature 96.8 [degF] Abril Aspen PA-C Work Phone: [facility] 09-01-2021 08:41-0400 Body weight 103.87 kg Abril Wheatfield PA-C Work Phone: [facility] 09-01-2021 08:41-0400 Diastolic blood pressure 76 mm[Hg] Abril Aspen PA-C Work Phone: [facility] 09-01-2021 08:41-0400 Heart rate 91 /min Abril Aspen PA-C Work Phone: [facility] 09-01-2021 08:41-0400 SaO2% (BldA) [Mass fraction] 98 % Abril Aspen PA-C Work Phone: [facility] 09-01-2021 08:41-0400 Systolic blood pressure 114 mm[Hg] Abril Wheatfield PA-C Work Phone: [facility] 06-01-2021 08:35-0400 Body height 182.[address] Praveena Martinez Work Phone: [facility] Work Phone: 06-01-2021 08:35-0400 Body mass index (BMI) [Ratio] 30.9 kg/m2 Dr. Praveena Martinez Work Phone: [facility] Work Phone: 06-01-2021 08:35-0400 Body weight 103.[address] Praveena Martinez Work Phone: [facility] Work Phone: 06-01-2021 08:35-0400 Diastolic blood pressure 89 mm[Hg] Dr. Praveena Martinez Work Phone: [facility] Work Phone: 06-01-2021 08:35-0400 Heart rate 85 /min Dr. Praveena Martinez Work Phone: [facility] Work Phone: 06-01-2021 08:35-0400 Respiratory rate 16 /min Dr. Praveena Martinez Work Phone: [facility] Work Phone: 06-01-2021 08:35-0400 Systolic blood pressure 139 mm[Hg] Dr. Praveena Martinez Work Phone: [facility] Work Phone: 05-02-2021 09:37-0400 Body temperature 101.5 [degF] Robin Glynn TICKET PRINTER AND TAGGER.CONSTRUCTION ELECTRICIAN Work Phone: [facility] 05-02-2021 09:37-0400 Body weight 107.14 kg Robin Glynn TICKET PRINTER AND TAGGER.CONSTRUCTION ELECTRICIAN Work Phone: [facility] 05-02-2021 09:37-0400 Diastolic blood pressure 90 mm[Hg] Robin Glynn TICKET PRINTER AND TAGGER.CONSTRUCTION ELECTRICIAN Work Phone: [facility] 05-02-2021 09:37-0400 Heart rate 94 /min Robin Glynn TICKET PRINTER AND TAGGER.CONSTRUCTION ELECTRICIAN Work Phone: [facility] 05-02-2021 09:37-0400 Respiratory rate 20 /min Robin Glynn TICKET PRINTER AND TAGGER.CONSTRUCTION ELECTRICIAN Work Phone: [facility] 05-02-2021 09:37-0400 SaO2% (BldA) [Mass fraction] 95 % Robin Glynn TICKET PRINTER AND TAGGER.CONSTRUCTION ELECTRICIAN Work Phone: [facility] 05-02-2021 09:37-0400 Systolic blood pressure 148 mm[Hg] Robin Glynn APRN.CONSTRUCTION ELECTRICIAN Work Phone: [facility] 12-01-2016 09:09-0400 Body height 185.42 cm Janina Alexander Work Phone: [facility] Work Phone: 12-01-2016 09:09-0400 Body mass index (BMI) [Ratio] 31.44 kg/m2 Janina Alexander Work Phone: [facility] Work Phone: 12-01-2016 09:09-0400 Body weight 108.1 kg Janina Alexander Work Phone: [facility] Work Phone: 12-01-2016 09:09-0400 Diastolic blood pressure 88 mm[Hg] Janina Alexander Work Phone: [facility] Work Phone: 12-01-2016 09:09-0400 Heart rate 76 /min Janina Alexander Work Phone: [facility] Work Phone: 12-01-2016 09:09-0400 Respiratory rate 20 /min Janina Alexandre Work Phone: [facility] Work Phone: 12-01-2016 09:09-0400 Systolic blood pressure 150 mm[Hg] Janina Alexander Work Phone: [facility] Work Phone: 05-17-2016 16:19-0400 Body height 185.42 cm Harshaina DeFinis [facility] Work Phone: 05-17-2016 16:19-0400 Body mass index (BMI) [Ratio] 31.53 kg/m2 Harumi DeFinis [facility] Work Phone: 05-17-2016 16:19-0400 Body weight 108.41 kg Harumi DeFinis [facility] Work Phone: 05-17-2016 16:19-0400 Diastolic blood pressure 70 mm[Hg] Harumi DeFinis [facility] Work Phone: 05-17-2016 16:19-0400 Heart rate 80 /min Babak Lema [facility] Work Phone: 05-17-2016 16:19-0400 Respiratory rate 20 /min Babak Lema [facility] Work Phone: 05-17-2016 16:19-0400 Systolic blood pressure 110 mm[Hg] Babak Lema [facility] Work Phone: 11-17-2015 08:38-0400 Body surface area Derived from formula 2.32 m2 Babak Lema [facility] Work Phone: Encounters Encounter Date Encounter Type Care Provider Facility Start: 11-18-2024 ambulatory Faith Villeda [facility] ty:[facility] Start: 09-20-2024 End: 09-20-[address] Steven Simpson MD Work Phone: -[facility] Start: 09-20-2024 End: 09-20-[address] Jonathan Abdi MD -[facility] Work Phone: Start: 08-30-2024 End: 08-30-[address] Steven Simpson MD Work Phone: -[facility] Start: 08-30-2024 End: 08-30-2024 Patient encounter procedure Isabel Quinn [place] -[facility] Work Phone: Start: 08-30-2024 End: 08-30-2024 ambulatory Isabel Quinn Facility:[facility] Start: 08-14-2024 End: 08-14-[address] Mukesh Antony MD -[facility] Start: 08-14-2024 End: 08-14-[address] Praveena Martinez DO Work Phone: -[facility] Start: 08-13-2024 End: 08-13-[address] Praveena Martinez DO Work Phone: -[facility] Start: 08-13-2024 End: 08-13-[address] Steven Simpson MD -[facility] Work Phone: Start: 08-13-2024 End: 08-13-2024 ambulatory Steven Simpson Facility:[facility] Start: 05-01-2024 End: 05-01-[address] Praveena Martinez DO Work Phone: [facility] Work Phone: Start: 05-01-2024 End: 05-01-2024 Patient encounter procedure Brii Singh SK[employer]S INSTRUCTOR-C -Laboratory Work Phone: Start: 05-01-2024 End: 05-01-2024 Patient encounter procedure Brii Singh SKILLS INSTRUCTOR-C -[facility] Work Phone: Start: 05-01-2024 End: 05-01-2024 ambulatory [facility] [place] [place]: 05-01-2024 End: 05-01-2024 ambulatory [facility] Facility:[facility] Start: 04-05-2024 Non-patient / Non-visit Dr. Guille anguiano MD -[facility] Start: 04-05-2024 Registered Referred Self Referred -[facility] Work Phone: Start: 04-05-2024 ambulatory [facility] [place] [place] Start: 03-20-2024 End: 03-20-2024 ambulatory MIRANDA WRIGHT TICKET PRINTER AND TAGGER-CONSTRUCTION ELECTRICIAN Facility:[facility] Start: 03-20-2024 End: 03-20-2024 Patient encounter procedure MIRANDA WRIGHT TICKET PRINTER AND TAGGER-CONSTRUCTION ELECTRICIAN [facility] Start: 02-26-2024 End: 02-26-2024 Patient encounter procedure Yakelin Erickson SKILLS INSTRUCTOR-C -Laboratory Work Phone: Start: 02-26-2024 End: 02-26-2024 ambulatory Yakelin Erickson NP Facility:[facility] Start: 01-26-2024 End: 02-27-2024 ambulatory PRAVEENA MARTINEZ DO Facility:[facility] [place] Start: 01-26-2024 End: 02-27-2024 Physical therapy management ANSON [place] [employer]ICK[employer] PRINTER AND TAGGER-CONSTRUCTION ELECTRICIAN [facility] Start: 01-19-2024 End: 01-19-2024 ambulatory PRAVEENA MARTINEZ DO Facility:[facility] [place] Start: 01-19-2024 End: 01-19-2024 Patient encounter procedure ANSON [place] [employer]ICK[employer] PRINTER AND TAGGER-CONSTRUCTION ELECTRICIAN [facility] Start: 11-23-2023 End: 11-23-2023 ambulatory Yakelin Erickson NP Facility:[facility] Start: 11-21-2023 End: 11-21-2023 ambulatory Praveena Martinez Facility:[facility] Start: 05-16-2023 End: 05-16-[address] Praveena Martinez Work Phone: [facility] Work Phone: Start: 05-16-2023 End: 05-16-[address] Praveena Martinez Work Phone: [facility] Work Phone: Start: 05-04-2023 End: 05-04-[address] Praveena Martinez Work Phone: [facility] Work Phone: Start: 04-20-2023 End: 04-20-2023 ambulatory [facility] Work Phone: Start: 04-20-2023 End: 04-20-2023 Patient encounter procedure [facility] Work Phone: Start: 04-02-2023 End: 04-02-2023 Patient encounter procedure Hoa Quinn TICKET PRINTER AND TAGGER.CONSTRUCTION ELECTRICIAN Work Phone: [facility] Comment on above: Flu-like symptoms (P rimary Dx); Influenza A Start: 09-12-2022 End: 09-13-2022 ambulatory DEVONTE CABEZAS MD Facility:B Start: 09-12-2022 End: 09-12-2022 Patient encounter procedure DEVONTE CABEZAS MD [facility] Start: 09-01-2022 End: 09-02-2022 ambulatory DEVONTE CABEZAS MD Facility: Start: 09-01-2022 End: 09-01-2022 Patient encounter procedure DEVONTE CABEZAS MD [facility] Start: 07-11-2022 Telephone encounter Ulices Greer MD Work Phone: General Surgery Comment on above: Patient Update (Surg 07/05/2022 - n belly botton area is bleeding bright red blood x 2 days size of a quarter. ) Post Op Drainage Start: 07-05-2022 End: 07-05-2022 ambulatory ULICES GREER Facility:[facility] Start: 06-27-2022 End: 06-28-2022 ambulatory PRAVEENA MARTINEZ Facility:[facility] Start: 06-06-2022 End: 06-06-[address] Praveena Martinez Work Phone: [facility] Work Phone: Start: 06-06-2022 End: 06-06-[address] Praveena Martinez Work Phone: [facility] Start: 06-04-2022 End: 06-04-2022 ambulatory PRAVEENA MARTINEZ Facility:[facility] Start: 06-04-2022 End: 06-04-2022 Subsequent hospital visit by physician [facility] Work Phone: Radiology Comment on above: Subacute cough [R05. 2] Start: 05-05-2022 Non-patient / Non-visit Dr. Maritza Martinez Work Phone: [facility] Start: 05-05-2022 End: 05-05-[address] Praveena Martinez Work Phone: [facility] Work Phone: Start: 05-05-2022 End: 05-05-[address] [facility] Start: 04-28-2022 End: 04-28-[address] Praveena Martinez Work Phone: [facility] Start: 04-12-[address] Praveena Martinez [facility] Start: 01-06-2022 Telephone encounter Aye Kumar APRN.CONSTRUCTION ELECTRICIAN Work Phone: [facility] Comment on above: Results Start: 01-05-2022 End: 01-05-2022 ambulatory PRAVEENA MARTINEZ Facility:[facility] Start: 01-05-2022 End: 01-05-2022 Subsequent hospital visit by physician [facility] Work Phone: Radiology Comment on above: Acute cough [R05.1] Start: 01-05-2022 End: 01-05-2022 Patient encounter procedure Hitesh Blair APRN.CONSTRUCTION ELECTRICIAN Work Phone: [facility] Comment on above: Acute cough (Primary Dx); Suspected COVID-19 virus infection Start: 11-25-2021 End: 11-25-2021 ambulatory [facility] Work Phone: Start: 11-25-2021 End: 11-25-2021 Patient encounter procedure [facility] Start: 11-09-2021 End: 11-09-2021 ambulatory [facility] Work Phone: Start: 11-09-2021 End: 11-09-2021 Patient encounter procedure [facility] Start: 10-22-2021 End: 10-22-2021 ambulatory GIOVANY LAL Facility:[facility] Start: 10-22-2021 End: 10-22-2021 Patient encounter procedure Giovany Lal MD Work Phone: General Surgery Comment on above: Umbilical hernia wit hout obstruction and without gangrene (Primary Dx) Start: 10-14-2021 End: 10-14-2021 ambulatory [facility] Facility:[facility] Start: 10-14-2021 End: 10-14-2021 Subsequent hospital visit by physician Giovany Lal MD Work Phone: Ambulatory Surgery Comment on above: Screening for colon cancer [Z12.11] Start: 09-14-2021 End: 09-15-2021 ambulatory DEVONTE CABEZAS MD Facility:B Start: 09-14-2021 End: 09-14-2021 Patient encounter procedure DEVONTE CABEZAS MD [facility] Start: 09-01-2021 End: 09-01-2021 ambulatory ABRIL ASPEN Facility:[facility] Start: 09-01-2021 End: 09-01-2021 Patient encounter procedure Abril Louise PA-C Work Phone: General Surgery Comment on above: Encounter for screen ing for malignant neoplasm of colon (Primary Dx) Start: 08-18-2021 End: 08-18-2021 Patient encounter procedure PRAVEENA MARTINEZ DO [facility] Start: 06-14-2021 End: 06-14-[address] Praveena Martinez Work Phone: [facility] Start: 06-08-2021 End: 06-08-[address] Praveena Martinez Work Phone: [facility] Start: 06-01-2021 End: 06-01-[address] Praveena Martinez Work Phone: [facility] Start: 05-28-2021 End: 05-28-[address] Praveena Martinez Work Phone: [facility] Start: 05-25-2021 End: 06-05-2022 Lab-Standing Order PRAVEENA MARTINEZ DO [facility] Start: 05-02-2021 End: 05-02-2021 Patient encounter procedure Robin Glynn APRN.CONSTRUCTION ELECTRICIAN Work Phone: [facility] Comment on above: Urinary frequency (P rimary Dx); Complicated UTI (urinary tract infection) Start: 11-07-2017 End: 11-07-2017 Patient encounter DAVID ESQUIVEL [facility] Procedures Date Procedure Procedure Detail Performing Clinician Start: 08-30-2024 MRI of lumbar spine with contrast Dr. Steven Simpson MD Work Phone: Start: 08-14-2024 X-ray of lumbosacral spine Dr. Praveena Martinez DO Work Phone: Start: 08-13-2024 Magnetic resonance angiography of head without contrast Dr. Praveena Martinez DO Work Phone: Start: 08-13-2024 MRI of brain with contrast Dr. Praveena Martinez DO Work Phone: Start: 04-02-2023 INFLUENZA A&B MOLECU LAR (POC) Hoa Quinn TICKET PRINTER AND TAGGER.CONSTRUCTION ELECTRICIAN Work Phone: Start: 06-04-2022 Radiologic exam ches t 2 views Jordin Garcia MD Work Phone: Start: 05-05-2022 Radionuclide imaging of perfusion of myocardium under exercise stress Dr. Praveena Martinez Work Phone: Start: 01-05-2022 Radiologic exam ches t 2 views Hitesh Blair APRN.CONSTRUCTION ELECTRICIAN Work Phone: Start: 10-14-2021 Colonoscopy flx dx w /collj spec when pfrmd Abril Louise PA-C Work Phone: Start: 10-14-2021 Colonoscopy Giovany constantino MD Work Phone: Start: 05-02-2021 Urnls dip stick/tabl et rgnt auto w/o microscopy Robin Glynn APRN.CONSTRUCTION ELECTRICIAN Work Phone: Start: 09-04-2017 Adult depression scr eening assessment Robin Glynn TICKET PRINTER AND TAGGER.CONSTRUCTION ELECTRICIAN Work Phone: Start: 12-01-2016 End: 12-01-2016 Documentation of current medications Janina Alexander Work Phone: Start: 12-01-2016 End: 12-01-2016 BILLPOSTING SUPERVISOR Mukesh Antony MD Start: 12-01-2016 End: 12-01-2016 [...] Plasma Mukesh Antony MD Start: 05-17-2016 End: 05-17-2016 Documentation [...] Dietary management education, guidance, and counseling Babak Torey Start: 11-17-2015 End: 11-17-2015 BILLPOSTING SUPERVISOR Moncho Marion CERAMIC PAINTER-C Start: 11-17-2015 End: 11-17-2015 Follow Up Appt 6 months Moncho Marion CERAMIC PAINTER -C Start: 07-29-2015 End: 08-03-2015 Hepatic function 2000 panel - Serum or Plasma Mukesh Antony MD Start: 07-29-2015 End: 08-03-2015 Lipid 1996 panel - Serum or Plasma Mukesh Antony MD Start: 05-21-2015 End: 11-05-2015 24 hour holter monitor Mukesh Antony MD Start: 05-21-2015 End: 05-21-2015 Follow Up Appt 6 months Marcos Singleton Start: 05-21-2015 End: 05-21-2015 MM Mukesh Antony MD Start: 04-16-2015 End: 04-27-2015 Hepatic function 2000 panel - Serum or Plasma Mukesh Antony MD Start: 04-16-2015 End: 04-27-2015 Lipid 1996 whitney - Serum or Plasma Mukesh Antony MD [...] PA-C Work Phone: Start: 11-10-2014 End: 11-10-2014 BILLPOSTING SUPERVISOR Yanet Diaz PA-C Work Phone: Start: 11-10-2014 [...] Mukesh Antony MD Start: 01-22-2014 End: 01-22-2014 BILLPOSTING SUPERVISOR Mukesh Antony MD Start: 01-22-2014 End: 01-22-2014 [...] test -exercise Mukesh Antony MD Start: 08-26-2011 Kaushik lieberman APRN.CONSTRUCTION ELECTRICIAN Work Phone: Start: 07-29-2011 Lipid 1996 panel - S letty or Plasma Hoa Quinn APRN.CONSTRUCTION ELECTRICIAN Work Phone: Start: 05-15-2002 History of coronary artery bypass grafting H/O coronary artery bypass surgery Brii Singh SKILLS INSTRUCTOR-C Comment on above: CABG x 5 - Sequentia l WARD to LAD & D2, Sequential radial graft to D1 & lateral CX, free OLGA to PDA 05/15/2002 Start: 02-07-2000 Coronary artery bypa ss grafts x 5 PRAVEENA MARTINEZ DO History of transuret hral prostatectomy S/P TURP (status post transurethral resection of prostate)( Confirmed ) PRAVEENA MARTINEZ DO Plan of Treatment Date Care Activity Detail Author Start: 10-15-2031 Colonoscopy COLONOSCOPY [facility] Start: 10-15-2031 COLORECTAL CANCER SCREENING COLORECTAL CANCER SCREENING [facility] Start: 2029 RSV Vaccine (1 - 1-d ose 75+ series) RSV Vaccine (1 - 1-dose 75+ series) [facility] Start: 10-14-2026 Colonoscopy COLONOSCOPY [facility] Start: 10-14-2026 COLORECTAL CANCER SCREENING COLORECTAL CANCER SCREENING [facility] Start: 10-14-2026 Screening for malign ant neoplasm of colon [facility] Start: 05-03-2026 PROSTATE CANCER SCRE ENING DISCUSSION PROSTATE CANCER SCREENING DISCUSSION [facility] Start: 05-03-2026 Prostate specific an tigen measurement Prostate Cancer Screening Discussion [facility] Start: 06-29-2025 DIABETES SCREEN DIABETES SCREEN [facility] Start: 06-29-2025 Diabetes Screening Diabetes Screenin g [facility] Start: 08-14-2024 X-ray of lumbosacral spine L/S Spine Min 4 Views [facility] Start: 08-14-2024 XR Spine Lumbar and Sacrum GE 4 Views [facility] Start: 05-07-2024 DIABETES SCREEN DIABETES SCREEN [facility] Start: 05-02-2024 DIABETES SCREEN DIABETES SCREEN [facility] Start: 10-08-2023 Covid-19 Vaccine () Covid-19 Vaccine () [facility] Start: 10-08-2023 Influenza vaccination Influenza Vacc ine (#1) [facility] Start: 02-06-2023 Advance Directive Discussion Advance Directive Discussion [facility] Start: 02-06-2023 Depression Assessment Depression Ass essment [facility] Start: 10-19-2022 PROSTATE CANCER SCRE ENING DISCUSSION PROSTATE CANCER SCREENING DISCUSSION [facility] Start: 10-07-2022 Covid-19 Vaccine () Covid-19 Vaccine () [facility] Start: 10-07-2022 Influenza vaccination C [facility] Start: 09-01-2022 BP CONTROLLED (<130/80) BP CONTROLLE D (<130/80) [facility] Start: 02-06-2022 ADVANCE DIRECTIVE DISCUSSION ADVANCE DIRECTIVE DISCUSSION [facility] Start: 02-06-2022 DEPRESSION ASSESSMENT DEPRESSION ASS ESSMENT [facility] Start: 01-05-2022 End: 01-19-2022 Influenza virus A and B RNA and SARS-CoV-2 (COVID-19) N gene panel - Respiratory specimen by KOSTAS with probe detection COVID WITH FLUA+B, ROUTINE Microbiology Routine Acute cough Suspected COVID-19 virus infection Expected: 01/05/2022, Expires: 01/19/2022 [facility] Work Phone: Comment on above: Expected: 01/05/2022 , Expires: 01/19/2022 Start: 10-07-2021 Influenza vaccination INFLUENZA (#1) [facility] Start: 08-25-2021 Colonoscopy COLONOSCOPY [facility] Start: 08-25-2021 COLORECTAL CANCER SCREENING COLORECTAL CANCER SCREENING [facility] Start: 02-06-2021 ADVANCE DIRECTIVE DISCUSSION ADVANCE DIRECTIVE DISCUSSION [facility] Start: 02-06-2021 DEPRESSION ASSESSMENT DEPRESSION ASS ESSMENT [facility] Start: 10-12-2020 COVID-19 VACCINE (3 - Booster for Pfizer series) COVID-19 VACCINE (3 - Booster for Pfizer series) [facility] Start: 10-07-2020 Influenza vaccination INFLUENZA (#1) [facility] Start: 07-07-2020 COVID-19 VACCINE (3 - Booster for Pfizer series) COVID-19 VACCINE (3 - Booster for Pfizer series) [facility] Start: 06-10-2019 Pneumococcal Vaccine : 65+ (1 of 1 - PCV) Pneumococcal Vaccine: 65+ (1 of 1 - PCV) [facility] Start: 06-10-2019 PNEUMOCOCCAL: 65+ (1 - PCV) PNEUMOCOCCAL: 65+ (1 - PCV) [facility] Start: 06-10-2019 PNEUMOVAX AGE 65 AND OVER WITH 5YR LOOKBACK (#1) PNEUMOVAX AGE 65 AND OVER WITH 5YR LOOKBACK (#1) [facility] Start: 09-04-2018 Adult depression scr eening assessment DEPRESSION SCREENING [facility] Start: 09-04-2018 ANNUAL PCP TEAM NURSING MANAGER CUCO DISEASE VISIT ANNUAL PCP TEAM CHRONIC DISEASE VISIT [facility] Start: 03-20-2017 End: 09-16-2016 Hepatic function 2000 panel - Serum or Plasma *Hepatic Function Panel [facility] Work Phone: Start: 03-20-2017 End: 09-16-2016 Lipid 1996 panel - Serum or Plasma *Lipid Profile CC PCP [facility] Work Phone: Start: 02-28-2017 End: 02-28-2017 Patient encounter procedure Appointment [facility] Work Phone: Start: 12-01-2016 End: 12-01-2016 BILLPOSTING SUPERVISOR BILLPOSTING SUPERVISOR [facility] Work Phone: Start: 12-01-2016 End: 12-01-2016 Echocardiography Echocardiogram (complete) [facility] Work Phone: Start: 12-01-2016 End: 12-01-2016 Follow Up Appt 3 months Follow Up Appt 3 months [employer] Work Phone: Start: 12-01-2016 End: 12-01-2016 Nuclear stress test -exercise Nuclear stress test -exercise [facility] Work Phone: Start: 11-22-2016 End: 11-22-2016 Patient encounter procedure Appointment [facility] Work Phone: Start: 08-22-2016 End: 09-15-2016 Hepatic function 2000 panel - Serum or Plasma *Hepatic Function Panel [facility] Work Phone: Start: 08-22-2016 End: 09-15-2016 Lipid 1996 panel - Serum or Plasma *Lipid Profile CC PCP [facility] Work Phone: Start: 07-28-2016 Lipid panel Lipid Screening [facility] Start: 07-28-2016 LIPID SCREEN LIPID SCREEN [facility] Start: 05-17-2016 End: 11-08-2016 Follow Up Appt 6 months Follow Up Appt 6 months [facility] Work Phone: Start: 05-17-2016 End: 09-16-2016 Hepatic function 2000 panel - Serum or Plasma *Hepatic Function Panel [facility] Work Phone: Start: 05-17-2016 End: 09-16-2016 Lipid 1996 panel - Serum or Plasma *Lipid Profile CC PCP [facility] Work Phone: Start: 05-17-2016 End: 11-08-2016 MMM MMM [facility] Work Phone: Start: 02-02-2016 End: 02-19-2016 Hepatic function 2000 panel - Serum or Plasma *Hepatic Function Panel [facility] Work Phone: Start: 02-02-2016 End: 02-19-2016 Lipid 1996 panel - Serum or Plasma *Lipid Profile CC PCP [facility] Work Phone: Start: 11-17-2015 End: 11-17-2015 BILLPOSTING SUPERVISOR BILLPOSTING SUPERVISOR [facility] Work Phone: Start: 11-17-2015 End: 11-17-2015 Follow Up Appt 6 months Follow Up Appt 6 months [facility] Work Phone: Start: 07-29-2015 End: 08-03-2015 Hepatic function 2000 panel - Serum or Plasma *Hepatic Function Panel [facility] Work Phone: Start: 07-29-2015 End: 08-03-2015 Lipid 1996 panel - Serum or Plasma *Lipid Profile CC PCP [facility] Work Phone: Start: 05-21-2015 End: 05-21-2015 24 hour holter monitor 24 hour holter monitor [facility] Work Phone: Start: 05-21-2015 End: 05-21-2015 Follow Up Appt 6 months Follow Up Appt 6 months [facility] Work Phone: Start: 05-21-2015 End: 05-21-2015 MMM MMM [facility] Work Phone: Start: 04-16-2015 End: 04-27-2015 Hepatic function 2000 panel - Serum or Plasma *Hepatic Function Panel [facility] Work Phone: Start: 04-16-2015 End: 04-27-2015 Lipid 1996 panel - Serum or Plasma *Lipid Profile CC PCP [facility] Work Phone: Start: 03-12-2015 End: 03-12-2015 Follow Up Appt 6 months Follow Up Appt 6 months [facility] Work Phone: Start: 03-12-2015 End: 04-28-2015 Hepatic function 2000 panel - Serum or Plasma *Hepatic Function Panel [facility] Work Phone: Start: 03-12-2015 End: 04-28-2015 Lipid 1996 panel - Serum or Plasma *Lipid Profile CC PCP [facility] Work Phone: Start: 03-12-2015 End: 03-12-2015 MMM MMM [facility] Work Phone: Start: 02-06-2015 End: 03-05-2015 Hepatic function 2000 panel - Serum or Plasma *Hepatic Function Panel [facility] Work Phone: Start: 02-06-2015 End: 03-05-2015 Lipid 1996 panel - Serum or Plasma *Lipid Profile CC PCP [facility] Work Phone: Start: 11-10-2014 End: 11-10-2014 Basic metabolic 2000 panel - Serum or Plasma *BMP [facility] Work Phone: Start: 11-10-2014 End: 11-10-2014 CBC W Auto Differential panel - Blood *CBC with Differential [facility] Work Phone: Start: 11-10-2014 End: 11-10-2014 BILLPOSTING SUPERVISOR BILLPOSTING SUPERVISOR [facility] Work Phone: Start: 11-10-2014 End: 11-10-2014 Follow Up Appt 6 months Follow Up Appt 6 months [facility] Work Phone: Start: 11-10-2014 End: 11-10-2014 Magnesium [Mass/volume] in Serum or Plasma *Magnesium [facility] Work Phone: Start: 11-10-2014 End: 11-10-2014 Thyrotropin [Units/volume] in Serum or Plasma *TSH [facility] Work Phone: Start: 08-04-2014 End: 09-19-2014 Hepatic function 2000 panel - Serum or Plasma *Hepatic Function Panel [facility] Work Phone: Start: 08-04-2014 End: 09-19-2014 Lipid 1996 panel - Serum or Plasma *Lipid Profile CC PCP [facility] Work Phone: Start: 2014 RSV Vaccine (1 - 1-d ose 60+ series) RSV Vaccine (1 - 1-dose 60+ series) [facility] Start: 04-22-2014 End: 04-22-2014 Follow Up Appt 6 months Follow Up Appt 6 months [facility] Work Phone: Start: 04-22-2014 End: 04-22-2014 MMM MMM [facility] Work Phone: Start: 01-22-2014 End: 01-22-2014 BILLPOSTING SUPERVISOR BILLPOSTING SUPERVISOR [facility] Work Phone: Start: 01-22-2014 End: 01-22-2014 Ecg routine ecg w/least 12 lds w/i&r EKG (In office) [facility] Work Phone: Start: 01-22-2014 End: 01-22-2014 Echocardiography Echocardiogram (complete) [facility] Work Phone: Start: 01-22-2014 End: 01-22-2014 Follow Up Appt 3 months Follow Up Appt 3 months [employer] Phone: Start: 01-22-2014 End: 09-19-2014 Hepatic function 2000 panel - Serum or Plasma *Hepatic Function Panel [facility] Work Phone: Start: 01-22-2014 End: 09-19-2014 Lipid 1996 panel - Serum or Plasma *Lipid Profile CC PCP [facility] Work Phone: Start: 01-22-2014 End: 01-22-2014 Nuclear stress test -exercise Nuclear stress test -exercise [facility] Work Phone: Start: 06-26-2013 Urine microalbumin profile DTa P,Tdap,Td Vaccine (1 - Tdap) [facility] Start: 07-28-2012 Hepatitis B surface antibody level LDL CHOLESTEROL [facility] Start: 2004 SHINGRIX VACCINE (1 of 2) QUICK GRIX VACCINE (1 of 2) [facility] Start: 06-10-1999 COLOGUARD (FIT-DNA) COLOGUARD (FIT-D NA) [facility] Start: 06-10-[address] COLONOGRAPHY [facility] Start: 06-10-1999 FECAL OCCULT BLOOD FECAL OCCULT BLOO D [facility] Start: 06-10-1999 Screening for malign ant neoplasm of colon [facility] Start: 06-10-[address] [facility] Start: 1973 Urine microalbumin profile DTAP,TDAP ,TD (1 - Tdap) [facility] Start: 1972 Annual PCP Team Plant Security Guard cuco Disease Visit Annual PCP Team Chronic Disease Visit [facility] Start: 1972 Anxiety Screening Anxiety Screening [facility] Start: 1972 BP CONTROLLED (<130/80) BP CONTROLLE D (<130/80) [facility] Start: 1972 Depression Screening Depression Scre ening [facility] Start: 1972 HEPATITIS C SCREENING HEPATITIS C [facility] Start: 1972 Hepatitis C screening Hepatitis C [facility] Bacteria identified in Urine by Culture URINE CULTURE Microbiology Routine Urinary frequency Ordered: 05/02/2021 [facility] Work Phone: Comment on above: Ordered: 05/02/2021 MR Lumbar spine WO a nd W contrast IV [facility] Patient Education [facility] Work Phone: SURGICAL PATHOLOGY [facility] Work Phone: Comment on above: Release Upon Orderin g for 1 Occurrences starting 10/14/2021, 1 completed [facility] Immunizations Immunization Date Immunization Notes Care Provider Rich caballero 05-12-2020 Covid (Pfizer) Dr. Praveena doss Work Phone: [facility] 04-17-2020 Covid (Pfizer) Dr. Praveena doss Work Phone: [facility] 12-18-2018 influenza virus vaccine, unspecified formulation Hoa Cheyenne TICKET PRINTER AND TAGGER.CONSTRUCTION ELECTRICIAN Work Phone: [facility] 11-26-[address] Praveena Martinez Work Phone: [facility] Payers Date Payer Category Payer Self-pay [id number] 2019 Medicare MEDICARE MEDICAR E A AND B [id number] 2019-Present [phone] [address] [address] [place] [address] Medicare [id number] 2019 Medicare [id number] 2019 Unknown MMO MMO MEDICARE SUPPLEMENT [id number] 2019-Present [phone] [address] [place] [address] Indemnity [id number] 2019 Unknown [id number] 2019 Unknown [id number]. [id number] 2019 Medicare [id number]. [id number] 1954 Unknown [id number] 1954 Unknown [id number] [id number]7 1954 Unknown [id number] 2.16.840.1.152675.3.579.2.627 1954 Unknown [id number] 2.16.840.1.755238.3.579.2.627 1954 Unknown [id number] .840.1.391740.3.579.2.627 1954 Unknown [id number] 2.840.1.439957.3.579.2.627 Unknown [id number] Unknown [facility] OVIDIO [id number] Unknown [id number] Unknown [id number] 2.840.1.576188.3.579.2.462 Unknown [id number] 2.840.1.477907.3.579.2.462 Unknown [id number] .840.1.726620.3.579.2.462 Unknown [id number] .840.1.884074.3.579.2.462 Unknown [id number] 2.840.1.497104.3.579.2.462 Unknown [id number] 2.840.1.529987.3.579.2.462 Unknown [id number] .840.1.208364.3.579.2.462 Unknown [id number] .840.1.173016.3.579.2.462 Unknown [id number] .840.1.520905.3.579.2.462 Unknown [id number] 2.840.1.872101.3.579.2.462 Unknown [id number] [id number] Unknown [id number] [id number] Social History Date Type Detail Facility Start: 12-10-2018 End: 05-04-2023 Tobacco smoking status NHIS Never smoked tobacco [facility] Start: 05-02-2021 End: 01-05-2022 Alcohol intake Current non-drinker of alcohol (finding) [facility] Start: 07-13-2011 History SDOH Alcohol Comment almost never [facility] Start: 1955 Sex Assigned At Not on file [facility] [facility] [place] Start: 06-08-2021 End: 05-04-2023 Tobacco smoking status NHIS Unknown if ever smoked [facility] Start: 03-14-2019 Rare [facility] Start: 12-04-2018 None [facility] Start: 04-01-2019 Spouse/ Signif icant Other [facility] Start: 03-15-2019 Non-smoker [facility] Start: 1955 Sex Assigned At Male [facility] Sex Assigned At [facility] Start: 08-22-2021 End: 01-05-2022 Exposure to SARS-CoV-2 (event) Not sure [facility] Start: 03-17-2014 Tobacco use and exposure Smokeless tobacco non-user [facility] Start: 09-01-2021 End: 04-02-2023 History of Social function [facility] Start: 09-01-2021 End: 04-02-2023 Tobacco use panel [facility] Adult Depression Screening Assessment 0 [facility] Start: 10-14-2021 Sexual orientation Heterosexual (shayy oglesby) [facility] Work Phone: Start: 01-06-2014 End: 05-05-2024 Sex Male (finding) [facility] Clinical Notes 05-15-2002 to 08-14-2024 Note Date & Type Note Facility 08-14-2024 Evaluation note Diagnosis Onset Date Resolution Degenerative disc disease (DDD) of lumbar region with axial back pain witho acute August 14, 2024 8 :57am History of laminectomy acute Ju 2024 8:57am Lumbar stenosis with neurogenic claudication noneactive August 8:57am [facility] Work Phone: 1(351) 341-851207-09-2025 Evaluation note* Diagnosis Onset Date Resolution Status Admit Date Degenerative disc disease (DDD) of lumbar region with axial back pain witho acute August 14, 2024 8:57am History of laminectomy acute 2024 8:57am Lumbar stenosis with neurogenic claudication noneactive August 8:57am Degenerative disc disease (DDD) of lumbar region with axial back pain witho acute September 8:50am Foraminal stenosis of lumbar region acute September 20 8:50am History of laminectomy acute 2024 8:50am Spinal hemangioma acute September 20, 2024 8:50am [facility] Work Phone: 1(671) 629-562403-26-2025 Evaluation note* Diagnosis Onset Date Resolution Status Admit Date Essential (primary) hypertension chronic May 01, 2024 3:17pm H/O coronary artery bypass surgery May 15, 2002May 01, 2024 3:17pm Hyperlipidemia chronic April 3:17pm [facility] Work Phone: 1(893) 118-478703-26-2025 Evaluation note* Diagnosis Onset Date Resolution Status Admit Date Essential (primary) hypertension chronic May 01, 2024 3:17pm H/O coronary artery bypass surgery May 15, 2002May 01, 2024 3:17pm Hyperlipidemia chronic April 3:17pm Degenerative disc disease (DDD) of lumbar region with axial back pain witho acute August 14, 2024 8:57am History of laminectomy acute 2024 8:57am Lumbar stenosis with neurogenic claudication noneactive August 8:57am [facility] Work Phone: 1(999) 535-220712-13-2024 Note ORIGINAL EXAMINATION: 3 XRAY VIEWS OF THE LUMBAR SPINE01/19/2024 10:20 am COMPARISON: None. HISTORY: ORDERING SYSTEM PROVIDED HISTORY: Reason for Exam: lumbar pain, history of laminectomy FINDINGS: There are 5 lumbar-type vertebral bodies. Vertebral body heights are maintained. Slight retrolisthesis of L1 on L2, L2 on L3, and L5 on S1 is noted. Mild intervertebral disc space height loss is noted and is most severe and L2-L3 and L5-S1. Postsurgical changes are noted within the lower lumbar spine. Mild facet arthropathy is noted within the lower lumbar spine. Moderate endplate spurring is also seen within the lumbar spine and visualized lower thoracic spine. Narrowing of the inter spinous distance with some areas of subchondral sclerosis within the spinous processes. The SI joints appear normal. Small pelvic phleboliths are noted. Mild vascular calcifications are seen. IMPRESSION: No acute osseous abnormality. Overall, moderate degenerative changes I have personally reviewed the images of this examination and agree with the resident's findings and interpretation. Interpreted by: Da Collier MD Preliminary Report By: Rosa Polk Electronically signed By Da Collier MD Dictated Date: 01/19/2024 10:23:19 AM Prelim Date: 01/19/2024 10:33:59 AM Sign Date: 01/19/2024 10:33:59 AM Ordering Provider: [facility]02-25-2024 Instructions* Patient Instructions* Hoa Quinn APRN.CNP - 04/02/2023 9:17 AM EST Rest, increase [...] if you have chest pain, decreased urine output,difficulty breathing, shortness of breath, inability to swallow. documented in this encounterMem[facility]02-25-[facility] History of Present illness Narrative* Hoa Quinn APRN.CNP - 04/02/2023 8:50 AM EST Subjective The history is provided by the patient. No language therapist was used. HPI Edmundo Henao is a [...] have confirmed and edited as necessary, the [facility] Review of Systems Constitutional: Positive [...] for higher level of care were discussed indetail warranting prompt ER evaluation. Hoa Quinn APRN.CNP documented in this encounterMemorial Health [facility]08-07-2023 Note* Exam Date Time Procedure Performing Provider Status 09/12/22 9:09 AM VL Venous US/Doppler One Leg (DVT) AO Auth (Verified) [facility] 06-05-2023 Miscellaneous Notes* Telephone Encounter - Violeta [...] if he has other concerns. Violeta Khalil, MSN, TICKET PRINTER AND TAGGER, CERAMIC PAINTER-C July 11, 2022 9:56 AM documented in this encounterMemorial Health System [facility]06-05-2023 Miscellaneous Notes* Telephone Encounter - Violeta Khalil APRN.CNP - 07/11/2022 9:46 AM EDT Attempted to speak with Edmundo Henao on 07/11/2022 at 0945. Patient did not answer. A voicemail was left with a call back number. documented in this encounterMemorial Health System [facility]05-30-2023 NoteHNO ID: [id number] Author: Devonte Soto APRN.CCTV TECHNICIAN Service: ? Author Type: Nurse Automatic Glove Former Type: Anesthesia Procedure Notes Filed: 07/05/2022 7:48 AM Note Text: ANESTHESIOLOGY PROCEDURE NOTE Airway General Information Procedure Start Time/Medication Administration: 07/05/2022 7:33 AM Patient location during procedure: OR Timeout Performed Pre-procedure: timeout performed Consent Obtained: Yes Patient identity confirmed: arm band, care team assistant and patient Staffing CCTV TECHNICIAN: Devonte Soto APRN.CCTV TECHNICIAN Performed by: CCTV TECHNICIAN Indications and Patient Condition Indications for airway management: anesthesia Preoxygenated: yes anesthesia circuit Patient position: sniffing Method: asleep Cricoid Pressure: No Manual In-Line Stabilization: No Difficult Mask: No Final Airway Details Final airway type: endotracheal airway Final Endotracheal Airway: ETT Cuffed: yes Successful intubation technique: video laryngoscopy Devices used: [employer] Endotracheal tube insertion site: oral Blade: Edwin Blade size: #4 ETT size (mm): 7.5 Measured from: lips Measurement (cm): 23 Placement verified by: capnometry Cormack-Lehane Classification: grade IIa - partial view of glottis Number of attempts at approach: 1 Failed airway: no Unrecognized esophageal intubation: no Airway not difficult SIGNATURE: Devonte Soto APRN.CRNA PATIENT NAME: Edmundo Henoa DATE: July 05, 2022 TIME: 7:47 AM CSN: [id number]23 NoteHNO ID: [id number] Author: Ulices Greer MD Service: ? Author Type: Physician Type: Progress Notes Filed: 06/27/2022 1:19 PM Note Text: Consultation requested by Dr. Martinez for an opinion regarding umbilical hernia. My [...] Consent was obtained and we will schedule accordingly.[facility] 06-27-2022 NoteHNO ID: [id number] Author: Lola Pleitez MD Service: ? Author Type: Resident Type: Progress Notes Filed: 06/27/2022 1:19 PM Note Text: [facility] - HISTORY AND PHYSICAL Chief Complaint: Umbilical hernia HPI: Edmundo Henao is a 67 year old male who presents with umbilical hernia. He has a history of CAD (bypass x 5, most recent EF: 45%, on ASA 81mg), BPH s/p TURP 2020 c/b DVT/PE (s/p IVC filter s/p removal, [...] Zhou BACK SURGERY HX 1986 laminectomy COLONOSCOPY 10/14/2021 tubular adenoma, repeat in [...] Artery) Resp 12 Ht 185.4 cm (6' 1") Wt 104.3 kg (230 lb) BMI 30.34 [...] 67 year o (more content not included)... [facility]04-29-2023 NoteHNO ID: [id number] Author: RT Steve(R) Service: Nuclear Medicine Author [...] PERIPHERAL IV DATA: Not applicable SIGNED BY: Zuri Neal, RT(R) June 04, 2022 9:50 [facility]04-29-2023 NoteHNO ID: [id number] Author: Jordin Garcia MD Service: ? Author Type: Physician Type: [...] 2019 CORONAVIRUS 3. Coronary artery disease involving [place] coronary artery of [place] heart without angina pectoris - ICD9: 414.01, ICD10: I25.10 Reviewed vague fatigue has been atypical presentation for a coronary event. This does not feel like his past angina. He will watch for concerning symptoms and seek evaluation if worsening. Pain with massage is reassuring sign for musculoskeletal upper back pain. Jordin Garcia, [facility]04-29-2023 History of Present illness Narrative* Zuri Neal RT(R) - 06/04/2022 9:50 AM EDT Radiology Service Progress Note PATIENT NAME: Edmundo Henao DATE OF SERVICE: June 04, 2022 TIME: 9:50 AM PATIENT IDENTITY VERIFICATION COMPLETED USING TWO (2) IDENTIFIERS: Name and Date of confirmedby patient verbally. FALL SCREENING: Has the patient [...] BY: RT Steve(R) June 04, 2022 9:50 AM documented in this encounterMemorial Health [facility]12-01-2022 Miscellaneous Notes* Telephone Encounter - China Rosas LPN - 01/06/2022 9:04 AM EST Patient notified.China Rosas LPN * Telephone Encounter - Aye Kumar APRN.CNP - 01/06/2022 7:19 AM EST Negative for flu and covid please notify thank you documented in this encounterMemorial Health System [facility]11-30-2022 Influenza virus A and B RNA and SARS-CoV-2 (COVID-19) N gene panel KOSTAS+probe (Resp)COVID 19 RESULT: SARS-CoV-2 (Agent of COVID-19) Not Detected by RT-PCR or equivalent method. phoebe DIMJ-CyO-5_KwgtqXitronix, Inc. (BIANCA)_EUA This test was developed and its performance characteristics determined by [facility]'s [facility] and Laboratory Medicine [place]. This test has been authorized by FDA under an Emergency Use Authorization (EUA). This test has been validated in accordance with the FDA's Guidance Document Policy for DiagnosticsTesting in Laboratories Certified to Perform High Complexity Testing under CLIA prior to Emergency use Authorization for Coronavirus Disease 2019 during the Public Health Emergency" issued on April 06, 2019. Test performed by [facility], [facility] Pathology and Laboratory Medicine [place], [address] [place] [address]. INFLUENZA A PCR: Negative for Influenza A by RT-PCR INFLUENZA B PCR: Negative for Influenza B by RT-PCRHighland District HospitalComment on above: Performed By: #### [id number] ####[facility] LABCLIA [id number] [place] [address] [place] 01-05-2022 NoteHNO ID: [id number] Author: Lara Rowell RT(R) Service: Radiology Author [...] IV DATA: Not applicable SIGNED BY: RT Mio(R) January 05, 2022 8:27 [facility]11-30-2022 NoteHNO ID: [id number] Author: Hitesh Blair APRN.CONSTRUCTION ELECTRICIAN Service: ? Author Type: Nurse Practitioner Type: [...] BYP W/VEIN AND ARTERY GRAFT 5 VEIN 2002 HEART SURGERY HX HERNIA REPAIR HX Left x 2 LASER ENUCLEATION PROSTATE W/MORCELLATION PAST SURGICAL HISTORY OF Bilateral 2021 carpal tunnel TONSILLECTOMY HX VASCULAR SURGERY PROCEDURE ALLERGIES Ampicillin, Niacin, and Statins [Yqgapgh-Ssi-Zcq Reductase Inhibitors] MEDICATIONS losartan (COZAAR) 25 mg [...] XR CHEST 2V FRONTAL (more content not included)...[facility] 01-05-2022 History of Present illness Narrative* Lara Rowell RT(R) - 01/05/2022 8:30 AM EST Radiology Service Progress Note PATIENT NAME: Edmundo Henao DATE OF SERVICE: January 05, 2022 TIME: 8:27 AM PATIENT IDENTITY VERIFICATION COMPLETED USING TWO (2) IDENTIFIERS: Name and Date of confirmedby patient verbally. FALL SCREENING: Has the patient had 2 falls in the last year or 1 fall with injury or currently using an Ambulatory Assistive Device (Walker, Cane, Wheelchair, Crutches, etc.)? No PATIENT GENDER DATA: Male PATIENT RELEVANT IMPLANT DATA REVIEWED: Yes RADIOLOGY DEPARTMENT: General X-ray: Exam(s) Completed: Chest X-Ray PERIPHERAL IV DATA: Not applicable SIGNED BY: RT Mio(Mike) January 05, 2022 8:27 AM documented in this encounterMemorial Health System [facility]11-30-2022 Instructions* Patient Instructions* Hitesh Blair APRN.CANDICE - 01/05/2022 8:23 AM EST How to [...] or concerning to you. documented in this encounterMemorial Health System [facility]11-30-2022 History of Present illness Narrative* Hitesh Blair APRN.CNP - 01/05/2022 8:15 AM EST Subjective HPI [...] Zhou BACK SURGERY HX 1986 laminectomy COLONOSCOPY 10/14/2021 tubular adenoma, repeat in 5 years COLONOSCOPY FLX DX W/COLLJ SPEC WHEN PFRMD 07/2000 Colonoscopy COLONOSCOPY W/BIOPSY SINGLE/MULTIPLE 08/26/2011 CORONARY ARTERY BYP W/VEIN & ARTERY GRAFT 5 VEIN 2001 HEART SURGERY HX HERNIA REPAIR HX Left x 2 LASER ENUCLEATION PROSTATE W/MORCELLATION PAST SURGICAL HISTORY OF Bilateral 2021 carpal tunnel TONSILLECTOMY HX VASCULAR SURGERY PROCEDURE ALLERGIES Ampicillin, Niacin, and Statins [Cyifrbz-Zsj-Vzn Reductase Inhibitors] MEDICATIONS losartan (COZAAR) 25 mg [...] of care. This note was generated using Badoo software. It may contain errors in wording, punctuation, or spelling. Hitesh Blair APRN.CANDICE documented in this encounterMemorial Health System [facility]09-16-2022 NoteHNO ID: [id number] Author: Giovany Lal MD Service: ? Author Type: Physician Type: [...] ?C (97.1 ?F), height 185.4 cm (6' 1"), weight 103.9 kg (229 lb), SpO2 96 %. Abdomen is soft small reducible umbilical hernia is identified. Assessment: Tubular adenoma of the ascending colon, umbilical hernia Plan: Patient is going to come back and see me within 30 days when he noticed that he would like to have his umbilical hernia repaired. He will need another colonoscopy in 5 years.[facility]09-16-2022 History of Present illness Narrative* Giovany Lal MD - 10/22/2021 9:05 AM EDT Subjective: [...] C (97.1 F), height 185.4 cm (6' 1"), weight 103.9 kg (229 lb), SpO2 96 %. Abdomen is soft small reducible umbilical hernia is identified. Assessment: Tubular adenoma of the ascending colon, umbilical hernia Plan: Patient is going to come back and see me within 30 days when he noticed that he would like tohave his umbilical hernia repaired. He will need another colonoscopy in 5 years. documented in this encounterMemorial Health System [facility]09-08-2022 NoteHNO ID: [id number] Author: Jane Flores RN Service: ? Author Type: Registered Nurse Type: Nursing Progress Note Filed: 10/14/2021 11:30 AM Note Text: Starting to pass air rectally. Jane Flores RNHighland District Hospital09-08-2022 Nurse Note* Jane Flores RN - [...] firm. Jane Flores RN documented in this encounterMemorial Health System [facility]09-08-2022 History and physical note * Giovany Lal MD - 10/14/2021 10:30 AM EDT Images from the original note were not included. HISTORY AND PHYSICAL Edmundo Henao 1955 REFERRING PHYSICIAN: Praveena Martinez DO CHIEF COMPLAINT: Consult (colonoscopy, possible hernia) [...] and prostatitis. Patient follows with Dr. Praveena Martinez in primary care. Patient reports feeling well [...] this visit. ALLERGIES: Ampicillin, Niacin, and Statins [Vpgtkhm-Iuo-Udu Reductase Inhibitors] PERSONAL HISTORY: SOCIAL HISTORY Social [...] entered by the nurse and reviewed by fl Nursing Notes: Bridgett Menjivar LPN 09/01/2021 8:46 [...] PFSH and ROS obtained by others. Abril Louise PA-C PHYSICAL EXAMINATION: General: The patient is [...] patient was offered a surgery/procedure at a [facility] facility. I have counseled the patient [...] encounter diagnosis) Consultation requested by Dr. Praveena Martinez for an opinion regarding colonoscopy. My final recommendations will be communicated back to the requesting physician by way of shared Medical record or letter to requesting physician via [place] mail. Abril Louise PA-C UPDATED HISTORY AND PHYSICAL EXAMINATION SERVICE [...] be found in the attached. SIGNATURE: Giovany Lal III, MD PATIENT NAME: Edmundo Henao DATE: October 14, 2021 TIME: 10:13 AM documented in this encounterMemorial Health System [facility]07-27-2022 NoteHNO ID: [id number] Author: Abril Louise PA-C Service: ? Author Type: Physician Waste Examiner Type: Progress Notes Filed: 09/06/2021 11:39 AM Note Text: HISTORY AND PHYSICAL Edmundo Henao 1955 REFERRING PHYSICIAN: Praveena Martinez DO CHIEF COMPLAINT: Consult (colonoscopy, possible hernia) [...] and prostatitis. Patient follows with Dr. Praveena Martinez in primary care. Patient reports feeling well [...] Right Dr. Zhou - BACK SURGERY HX 1986 laminectomy - COLONOSCOPY FLX DX W/COLLJ SPEC [...] this visit. ALLERGIES: Ampicillin, Niacin, and Statins [Cypmjkx-Jhk-Xxp Reductase Inhibitors] PERSONAL HISTORY: Social History Tobacco [...] entered by the nurse and reviewed by fl Nursing Notes: Bridgett Menjivar LPN 09/01/2021 8:46 [...] injuries, and denies stroke/TI (more content not included)...[facility]07-27-2022 Nurse Note* Bridgett MenjivarROXIE - 09/01/2021 8:42 AM EDT REVIEW OF [...] 2011 Bridgett Menjivar LPN documented in this encounterMemorial Health System [facility]07-27-2022 History of Present illness Narrative* Abril Louise PA-C - 09/01/2021 8:39 AM EDT HISTORY AND PHYSICAL Edmundo Henao 1955 REFERRING PHYSICIAN: Praveena Martinez DO CHIEF COMPLAINT: Consult (colonoscopy, possible hernia) [...] endoscopy. Most recent colonoscopy 08/26/[address] Donhaue with findings of internal hemorrhoids, diverticulosis and [...] and prostatitis. Patient follows with Dr. Praveena Martinez in primary care. Patient reports feeling well [...] this visit. ALLERGIES: Ampicillin, Niacin, and Statins [Iqefcqj-Smz-Iut Reductase Inhibitors] PERSONAL HISTORY: Social History Tobacco [...] entered by the nurse and reviewed by fl Nursing Notes: Bridgett Menjivar LPN 09/01/2021 8:46 [...] PFSH and ROS obtained by others. Abril Louise PA-C PHYSICAL EXAMINATION: General: The patient is [...] patient was offered a surgery/procedure at a [facility]. I have counseled the patient [...] encounter diagnosis) Consultation requested by Dr. Praveena Martinez for an opinion regarding colonoscopy. My final recommendations will be communicated back to the requesting physician by way of shared Medical record or letter to requesting physician via US mail. Abril Louise PA-C documented in this encounterMemorial Health System [facility]04-01-2022 NoteHNO ID: [id number] Author: Wild Hewitt MD Service: Infectious Disease [...] (Oral) Resp 18 Ht 184.2 cm (6' 0.5") Wt 103.7 kg (228 lb 9.9 oz) [...] reviewed Imaging data: reviewed Wild Hewitt MD [phone] 05/07/2021 8:24 [facility] [id number] NoteHNO ID: [id number] Author: Dominique Boucher DO Service: Hospital Medicine Author Type: Physician Type: Progress Notes Filed: 05/06/2021 11:33 PM Note Text: DEPARTMENT OF HOSPITAL MEDICINE PROGRESS NOTE SERVICE DATE: 05/06/2021 SERVICE TIME: 12:00 PM Hospital Medicine/Primary Attending: Dominique Boucher DO NIGHT AND WEEKEND COVERAGE: TALENT COVERAGE: Days: [phone], please page attending physician. Nights: [phone], please page [place] [facility] Night coverage pager [phone]. Subjective INTERVAL HPI: Denies any chest pain, [...] (Src) 98.6 (Oral) Resp 20 Ht 6' .5" (1.84m) Wt 228 lb 9.9 oz (103.7kg) [...] ongoing for 3 months. -Describes pain as "shooting and burning" and concerned of cervical spine pathology. -He [...] -outpatient follow up wi (more content not included)...[facility] CenterYrjsxrfh90-45-3085 NoteHNO ID: [id number] Author: Wild Hewitt MD Service: Infectious Disease [...] (Oral) Resp 18 Ht 184.2 cm (6' 0.5") Wt 103.7 kg (228 lb 9.9 oz) [...] reviewed Imaging data: reviewed Wild Hewitt MD [phone] 05/06/2021 8:14 [facility] [id number] NoteHNO ID: [id number] Author: Dominique Boucher DO Service: Hospital Medicine Author Type: Physician Type: Progress Notes Filed: 05/05/2021 11:31 PM Note Text: DEPARTMENT OF HOSPITAL MEDICINE PROGRESS NOTE SERVICE DATE: 05/05/2021 SERVICE TIME: 12:00 PM Hospital Medicine/Primary Attending: Dominique Boucher DO NIGHT AND WEEKEND COVERAGE: TALENT COVERAGE: Days: [phone], please page attending physician. Nights: [phone], please page [place] [facility] Night coverage pager [phone]. Subjective INTERVAL HPI: continues to have abdominal pain. Constipated. Denies any chest pain, shortness of breath. Not feeling well. Complains of right UE pain and tingling ongoing for 3 months. Describes pain as "shooting and burning" and concerned of cervical spine pathology. He [...] (Src) 98.4 (Oral) Resp 18 Ht 6' .5" (1.84m) Wt 234 lb 12.6 oz (106.5kg) [...] ongoing for 3 months. -Describes pain as "shooting and burning" and concerned of cervical spine pathology. -He [...] with PCP ? L (more content not included)...[facility] CenterJvznowlv07-02-3201 NoteHNO ID: [id number] Author: Wild Hewitt MD Service: Infectious Disease [...] (Oral) Resp 18 Ht 184.2 cm (6' 0.5") Wt 106.5 kg (234 lb 12.6 oz) [...] NP-C [facility] Answering Service: [phone] May 05, 2021 11:53 AM I personally saw and evaluated the patient. I reviewed the SKILLS INSTRUCTOR Hx, exam and MDM and I agree with the SKILLS INSTRUCTOR assessment and plan unless otherwise addended above. Wild Hewitt MD [phone] 05/05/2021 12:55 PMTr[facility] CenterVqqzlgzd94-48-2437 NoteHNO ID: [id number] Author: Quoc Spencer MD Service: Neurology General Author Type: Physician Type: Plan of Care Filed: 05/05/2021 7:53 AM Note Text: TELENEUROLOGY CONSULT PROGRESS NOTE Patient seen using [facility]. Recommendations are placed in the chart. Please review. For questions after hours, when teleneurologist is not available, for AIDAN: Please Page [phone] for the [facility] from 5pm to 8am Please [...] May 05, 2021 TIME: 7:51 AM PAGER/CONTACT #:[facility] CenterKrrruriz07-37-9118 NoteHNO ID: [id number] Author: Dominique Boucher DO Service: Hospital Medicine Author Type: Physician Type: Progress Notes Filed: 05/04/2021 3:05 PM Note Text: DEPARTMENT OF HOSPITAL MEDICINE PROGRESS NOTE SERVICE DATE: 05/04/2021 SERVICE TIME: 3:02 PM Hospital Medicine/Primary Attending: Dominique Boucher DO NIGHT AND WEEKEND COVERAGE: TALENT COVERAGE: Days: [phone], please page attending physician. Nights: [phone], please page [place] [facility] Night coverage pager [phone]. Subjective INTERVAL HPI: continues to have abdominal pain. Constipated. Denies any chest pain, shortness of breath. Not feeling well. Complains of right UE pain and tingling ongoing for 3 months. Describes pain as "shooting and burning" and concerned of cervical spine pathology. He [...] (Src) 98.6 (Oral) Resp 18 Ht 6' .5" (1.84m) Wt 234 lb 12.6 oz (106.5kg) [...] ongoing for 3 months. -Describes pain as "shooting and burning" and concerned of cervical spine pathology. -He [...] Non-Pharmacologic VTE Prophylaxis/Anticoagulants 05/02/ (more content not included)...[facility] [id number] NoteHNO ID: [id number] Author: Wild Hewitt MD Service: Infectious Disease [...] (Oral) Resp 20 Ht 184.2 cm (6' 0.5") Wt 106.5 kg (234 lb 12.6 oz) [...] data: reviewed Imaging data: reviewed June Chew SKILLS INSTRUCTOR-C [facility] Answering Service: [phone] May 04, 2021 12:25 PM I personally saw and evaluated the patient. I reviewed the SKILLS INSTRUCTOR Hx, exam and MDM and I agree with the SKILLS INSTRUCTOR assessment and plan unless otherwise addended above. Wild Hewitt MD [phone] 05/04/2021 2:05 PMTr[facility] [id number] NoteHNO ID: [id number] Author: Dominique Boucher DO Service: Hospital Medicine Author Type: Physician Type: Progress Notes Filed: 05/03/2021 10:36 PM Note Text: DEPARTMENT OF HOSPITAL MEDICINE PROGRESS NOTE SERVICE DATE: 05/03/2021 SERVICE TIME: 1:30 PM Hospital Medicine/Primary Attending: Dominique Boucher DO NIGHT AND WEEKEND COVERAGE: TALENT COVERAGE: Days: [phone], please page attending physician. Nights: [phone], please page [place] [facility] Night coverage pager [phone]. Subjective INTERVAL HPI: continues to have abdominal pain. Constipated. Denies any chest pain, shortness of breath. Not feeling well. Complains of right UE pain and tingling ongoing for 3 months. Describes pain as "shooting and burning" and concerned of cervical spine pathology. He [...] (Src) 99.5 (Oral) Resp 16 Ht 6' .5" (1.84m) Wt 234 lb 12.6 oz (106.5kg) [...] ongoing for 3 months. -Describes pain as "shooting and burning" and concerned of cervical spine pathology. -He [...] VTE Prophylaxis/Anticoagulants 05/02/21 1530 pneumatic compression stockings ([place], [place]) VTE Prophylaxis: VTE prophylaxis appropriate Disposition: To be determined Plan of care discussed with Provider, RN, Patient Plan communicated to: Family at bedside SIGNATURE: Dominique Boucher DO PATIENT NAME: Edmundo Henao DATE: May 03, 2021 TIME: 10:29 PMTr[facility] [id number] History of Past illness Narrative* Problem Noted Date Resolved Date Sepsis 05/02/2021 07/18/2021 documented as of this encounter (statuses as of 09/06/2021) [address]27-2022 History of Past illness Narrative* Problem Noted Date Resolved Date Sepsis 05/02/2021 07/18/2021 documented as of this encounter (statuses as of 10/15/2021) [address]27-2022 History of Past illness Narrative* Problem Noted Date Resolved Date Sepsis 05/02/2021 07/18/2021 documented as of this encounter (statuses as of 10/22/2021) [address]27-2022 History of Past illness Narrative* Problem Noted Date Resolved Date Sepsis 05/02/2021 07/18/2021 documented as of this encounter (statuses as of 01/05/2022) [address]27-2022 History of Past illness Narrative* Problem Noted Date Resolved Date Sepsis 05/02/2021 07/18/2021 documented as of this encounter (statuses as of 01/06/2022) [facility]03-27-2022 History of Past illness Narrative* Problem Noted Date Resolved Date Sepsis 05/02/2021 07/18/2021 documented as of this encounter (statuses as of 07/15/2022) [facility]03-27-2022 History of Past illness Narrative* Problem Noted Date Resolved Date Sepsis 05/02/2021 07/18/2021 documented as of this encounter (statuses as of 07/11/2022) [facility]03-27-2022 History of Past illness Narrative* Problem Noted Date Diagnosed Date Resolved Date Sepsis 05/02/2021 07/18/2021 documented as of this encounter (statuses as of 04/02/2023) [facility]03-27-2022 History of Present illness Narrative* Robin Glynn APRN.CONSTRUCTION ELECTRICIAN - 05/02/2021 10:01 AM EDT Subjective HPI [...] PROSTATE W/MORCELLATION ALLERGIES Ampicillin, Niacin, and Statins [Mxmhclf-Tjc-Ziz Reductase Inhibitors] MEDICATIONS OTC NUTRITIONAL SUPPLEMENT Trina [...] go to at this time. 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) [facility] Work Phone: [phone]) 498-449304-09-2003 Evaluation note* Diagnosis Onset Date Resolution Status Encounter for examination re quired by 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 (DOT) acute Essential (primary) hypertension chronic H/O coronary artery bypass surgery May 15, 2002 [facility] Work Phone: [phone]) 781-631604-09-2003 Evaluation note* Diagnosis Onset Date Resolution Status Encounter for examination re quired by 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 (DOT) acute Essential (primary) hypertension chronic H/O coronary artery bypass surgery May 15, 2002 chronic Encounter for examination re quired by 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 (DOT) [facility] Work Phone: [phone]) 290-120404-09-2003 Evaluation note* Diagnosis Onset Date Resolution Status Essential (primary) hypertension chronic H/O coronary artery bypass surgery May 15, 2002 [facility] Work Phone: Evaluation + Plan note Future Appointments Appointment Date:02/08/2022 08:00:00 AM Scheduled Provider:PRAVEENA MARTINEZ DO Location:[facility] Appointment Type: OV Future Scheduled Tests Radiology* XR Spine Thoracic 2 Views 10/28/20 * XR Spine Cervical AP/LAT 10/28/20 [facility] Evaluation + Plan note Future Appointments Appointment Date:08/16/2022 09:00:00 AM Scheduled Provider:PRAVEENA MARTINEZ DO Location:[facility] Appointment Type:PC OV [facility] Evaluation + Plan note Future Appointments Appointment Date:09/12/2022 09:00:00 AM Scheduled Provider: Location:[facility] Appointment Type:VL AOH - Venous US/Doppler One Leg (for Appointment Date:02/21/2023 08:00:00 AM Scheduled Provider:PRAVEENA MARTINEZ DO Location:[facility] Appointment Type:PC OV [facility] EvSkritteration + Plan note Future Appointments Appointment Date:02/21/2023 08:00:00 AM Scheduled Provider:PRAVEENA MARTINEZ DO Location:[facility] Appointment Type:PC OV [facility] EvBizzingo note* Diagnosis Urinary frequency- Primary Complicated UTI (urinary tract infection) Urinary tract infection, site not specified documented in this encounter [facility]* Diagnosis Encounter for screening for malignant neoplasm of colon- Primary Special screening for malignant neoplasms, colon documented in this encounter [facility] note* Diagnosis Encounter for screening colonoscopy- Primary Special screening for malignant neoplasms, colon Screening for colon cancer Special screening for malignant neoplasms, colon documented in this encounter [facility] note* Diagnosis Umbilical hernia without obstruction and without gangrene- Primary documented in this encounter [facility] noteNo assessment information availableWSalem Regional Medical [facility] Work Phone: Evllprrmim note* Diagnosis Acute cough- Primary Suspected COVID-19 virus infection documented in this encounter [facility]* Diagnosis Flu-like symptoms- Primary Other general symptoms Influenza A Influenza with other respiratory manifestations documented in this encounter [facility] note* Diagnosis Subacute cough Cough Fatigue, unspecified type Preoperative examination- Primary Preoperative examination, unspecified Obesity, Class I, BMI 30-34.9 Obesity, unspecified Pure hypercholesterolemia Primary hypertension Unspecified essential hypertension Coronary artery disease involving [place] coronary artery of [place] heart without angina pectoris History of pulmonary embolism Personal history of pulmonary embolism BPH with obstruction/lower urinary tract symptoms Hypertrophy of prostate with urinary obstruction and other lower urinary tract symptoms (LUTS) documented in this encounter [facility]* Diagnosis Acute cough Preoperative examination- Primary Preoperative examination, unspecified Obesity, Class I, BMI 30-34.9 Obesity, unspecified Pure hypercholesterolemia Primary hypertension Unspecified essential hypertension Coronary artery disease involving [place] coronary artery of [place] heart without angina pectoris History of pulmonary embolism Personal history of pulmonary embolism BPH with obstruction/lower urinary tract symptoms Hypertrophy of prostate with urinary obstruction and other lower urinary tract symptoms (LUTS) documented in this encounter [facility] risk assessmentmedical contraindicationWMerit Health [facility] Work Phone: Hospital course Narrative No data available for this section [facility] Discharge instructions No data available for this section [facility] Hospital Discharge instructionsAmbulatory Orders* Pain Management Location: None [facility] Work Phone: Progress note No data available for this section [facility] Reason for referral (narrative)* Outpatient Procedure (Routine) - Closed Specialty Diagnoses / Procedures Referred By Contac t Referred To Contact [facility] Diagnoses Screening for colon cancer Procedures COLONOSCOPY SCREENING COLONOSCOPY FLX DX W/COLLJ SPEC WHEN Abril Moss PA-C [address] [place] [address] [facility] [address] [place] [address] Referral ID Status Reason Start Date Expiration Date V isits Requested Visits Authorized [id number] Closed Auto-Generate d Referral 09/01/2021 09/01/2022 1 1 [facility] for referral (narrative)No reason for referral information availableWSalem Regional Medical Center Work Phone: Reason for visit Narrative* Outpatient Procedure (Routine) - Closed Specialty Diagnoses / Procedures Referred By Contac t Referred To Contact [facility] Diagnoses Screening for colon cancer Procedures COLONOSCOPY SCREENING COLONOSCOPY FLX DX W/COLLJ SPEC WHEN Abril Moss PA-C [address] [place] [address] [facility] [address] [place] [address] Referral ID Status Reason Start Date Expiration Date V isits Requested Visits Authorized [id number] Closed Auto-Generate d Referral 09/01/2021 09/01/2022 1 1 [facility] Summary Purpose Family History No Family History Records Found Relationship Condition Age at Onset Recorded Date/T enrike father Status post coronary artery bypass graft 51 Coronary artery disease Unknown Myocardial infarction Unknown Diabetes mellitus Unknown mother Cerebrovascular accident (CVA) Unknown sister Malignant neoplasm Unknown brother Diabetes mellitus Unknown Advance Directives No Advanced Directives Records FoundDocuments on File Type Date Recorded 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 Reason for Visit Essential (primary) hypertension H/O coronary artery bypass surgery Hyperlipidemia Non-ischemic cardiomyopathy Encounter for examination required by 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 (DOT) Chief Complaint INT LABS Chief Complaint SCREENING 6 M FU CAD Coronary artery disease Reason for Visit Encounter for examin ation required by 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 (DOT) Essential (primary) hypertension H/O coronary artery bypass surgery Chief Complaint SCREENING 6 M FU CAD Coronary artery disease E ORDERS DOT 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/[employer] 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 Reason for Visit Encounter for examin ation required by 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 (DOT) Essential (primary) hypertension H/O coronary artery bypass surgery Encounter for examination required by 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 (DOT) Chief Complaint E ORDERS Chief Complaint E 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 INT LABS Reason for Visit Essential (primary) hypertension H/O coronary artery bypass surgery Chief Complaint Admit Date SCREENING April 05, 2024 8:35am 1 Y FU May 01, 2024 3:1 7pm E-ORDER May 01, 2024 4:2 1pm Reason for Visit Admit Date Essential (primary) hypertension April 072024 3:17pm H/O coronary artery bypass surgery May 01, 2024 3:17pm Hyperlipidemia May 01, 2024 3:1 7pm Chief Complaint Admit Date 1 Y FU May 01, 2024 3:1 7pm E-ORDER May 01, 2024 4:2 1pm Unspecified optic atrophy August 13, 2024 9:56am LUMBAR SPINE August 14, 2024 8:57a m Rm 4 August 14, 2024 9:14a m Reason for Visit Admit Date Essential (primary) hypertension April 072024 3:17pm H/O coronary artery bypass surgery May 01, 2024 3:17pm Hyperlipidemia May 01, 2024 3:1 7pm 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 with axial back pain witho August 14, 2024 8:57am History of laminectomy August 14, 2024 8: 57am Lumbar stenosis with neurogenic claudica tion August 14, 2024 8:57am Chief Complaint Admit Date Unspecified optic atrophy August 13, 2024 9:56am LUMBAR SPINE August 14, 2024 8:57a m Rm 4 August 14, 2024 9:14a m Pain August 30, 2024 7:46 am Reason for Visit Admit Date 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 with axial back pain witho August 14, 2024 8:57am History of laminectomy August 14, 2024 8: 57am Lumbar stenosis with neurogenic claudica tion August 14, 2024 8:57am Chief Complaint Admit Date Unspecified optic atrophy August 13, 2024 9:56am LUMBAR SPINE August 14, 2024 8:57a m Rm 4 August 14, 2024 9:14a m Pain August 30, 2024 7:46 am LUMBAR SPINE September 20, 2024 8: 50am Reason for Visit Admit Date 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 with axial back pain witho August 14, 2024 8:57am History of laminectomy August 14, 2024 8: 57am Lumbar stenosis with neurogenic claudica tion August 14, 2024 8:57am 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 with axial back pain witho September 20, 2024 8:50am Foraminal stenosis of lumbar region Augu 2024 8:50am History of laminectomy September 20, 2024 8:50am Spinal hemangioma September 20, 2024 8: 50am Medications Administered Section Inactive Administered Medications - [...] Given 10/14/2021 10:22 AM EDT 50 mcg Given 10/14/2021 10:14 AM EDT 50 mcg lactated ringers iv infusion 30 mL/hr, INTRAVENOUS, CONTINUOUS, Starting on Dana 10/14/21 at 0930, Until Dana 10/14/21 at 1041, Preprocedure New Bag/Syringe/Bottle 10/14/2021 9:30 AM EDT 30 mL/hr 30 mL/hr Hand, Right midazolam (PF) 1-5 mg injection (VERSED) 1-5 mg, INTRAVENOUS, DIRECTED, Starting on Dana 10/14/21 at 1030, Until Dana 10/14/21 at 1429, DOSING DIRECTED BY PHYSICIAN FOR PROCEDURAL SEDATION ONLY, Intraprocedure Given 10/14/2021 10:18 AM EDT 2 mg Given 10/14/2021 10:14 AM EDT 4 mg Health Concerns Infection Onset Date Last Indicated Resolved Time COVID-19 Rule-Out 01/05/2022 01/05/2022 Additional Source Comments (unrecognized sect ion and content) No Status Records FoundNo Status Records FoundNo Status Records FoundNo Status Records FoundNo Status Records FoundNo Status Records Found INFORMATION SOURCE (unrecogn ized section and content) DATE CREATED AUTHOR 12/07/2017 [facility] DATE CREATED AUTHOR AUTHOR'S ORGANIZ ATJAH 05/12/2021 [facility] DATE CREATED AUTHOR AUTHOR'S ORGANIZ ATION 07/16/2022 [facility] DATE CREATED AUTHOR AUTHOR'S ORGANIZ ATION 09/13/2022 [facility] ([place] DATE CREATED AUTHOR AUTHOR'S ORGANIZ ATION 03/24/2024 [facility] DATE CREATED AUTHOR AUTHOR'S ORGANIZ ATION 11/18/2024 [facility] Source Comments (unrecognize d section and content) In the event this informatio n is protected by the Federal Confidentiality of Alcohol and Drug Abuse Patient Records regulations: The Federal rules restrict any use of the information to criminally investigate or prosecute any alcohol or drug abuse patient.[facility] HospitalIn the event this information is protected by the Federal Confidentiality of Alcohol and Drug Abuse Patient Records regulations: The Federal rules restrict any use of the information to criminally investigate or prosecute any alcohol or drug abuse patient.[facility] HospitalIn the event this information is protected by the Federal Confidentiality of Alcohol and Drug Abuse Patient Records regulations: The Federal rules restrict any use of the information to criminally investigate or prosecute any alcohol or drug abuse patient.[facility] HospitalIn the event this information is protected by the Federal Confidentiality of Alcohol and Drug Abuse Patient Records regulations: The Federal rules restrict any use of the information to criminally investigate or prosecute any alcohol or drug abuse patient.[facility] HospitalIn the event this information is protected by the Federal Confidentiality of Alcohol and Drug Abuse Patient Records regulations: The Federal rules restrict any use of the information to criminally investigate or prosecute any alcohol or drug abuse patient.[facility] HospitalIn the event this information is protected by the Federal Confidentiality of Alcohol and Drug Abuse Patient Records regulations: The Federal rules restrict any use of the information to criminally investigate or prosecute any alcohol or drug abuse patient.[facility] HospitalIn the event this information is protected by the Federal Confidentiality of Alcohol and Drug Abuse Patient Records regulations: The Federal rules restrict any use of the information to criminally investigate or prosecute any alcohol or drug abuse patient.[facility] HospitalIn the event this information is protected by the Federal Confidentiality of Alcohol and Drug Abuse Patient Records regulations: The Federal rules restrict any use of the information to criminally investigate or prosecute any alcohol or drug abuse patient.[facility] HospitalIn the event this information is protected by the Federal Confidentiality of Alcohol and Drug Abuse Patient Records regulations: The Federal rules restrict any use of the information to criminally investigate or prosecute any alcohol or drug abuse patient.[facility] HospitalIn the event this information is protected by the Federal Confidentiality of Alcohol and Drug Abuse Patient Records regulations: The Federal rules restrict any use of the information to criminally investigate or prosecute any alcohol or drug abuse patient.[facility] HospitalIn the event this information is protected by the Federal Confidentiality of Alcohol and Drug Abuse Patient Records regulations: The Federal rules restrict any use of the information to criminally investigate or prosecute any alcohol or drug abuse patient.[facility] Reason for Visit (unrecogniz ed section and content) Reason Comments Urinary Problem frequency, chills, n ausea, testicular pain x last night Reason Comments Consult colonoscopy, possibl e hernia Reason Comments Follow Up Colonoscopy and woul d like umbilical hernia checked Reason Comments Cough Cough, sinus and sor e throat Reason Comments Results Reason Comments Patient Update Surg 07/05/2022 - n b mignon barrow area is bleeding bright red blood x 2 days size of a quarter. 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 Operator Relationship Specialty Start Date End Date Praveena Martinez [address] [place] [address] PCP - General Family Practice 05/02/21 Wrecker Operator Relationship Specialty Start Date End Date Praveena Martinez [address] [place] [address] PCP - General Family Practice 05/02/21 Wrecker Operator Relationship Specialty Start Date End Date Praveena Martinez [address] [place] [address] PCP - General Family Practice 05/02/21 Wrecker Operator Relationship Specialty Start Date End Date Praveena Martinez [address] [place] [address] PCP - General Family Practice 05/02/21 Wrecker Operator Relationship Specialty Start Date End Date Michelle Praveena Elder [address] [place] [address] PCP - General Family Medicine 05/02/21 Wrecker Operator Relationship Specialty Start Date End Date Michelle Praveena Elder [address] [place] [address] PCP - General Family Medicine 05/02/21 Team Status: Active Member Role Status Dates Dr. Praveena Martinez DO Family Provider Active Dr. Praveena Martinez DO Primary Care Provider Active Team Status: Inactive Member Role Status Dates Dr. Praveena Martinez DO Primary Care Provider, Referri ng Provider Active Dr. Mukesh Antony MD Attending Provider Active Team Status: Active Member Role Status Dates Dr. Praveena Martinez DO Primary Care Provider Active Dr. Mukesh Antony MD Attending Provider, Referring Provider, Other Provider Active Team Status: Active Member Role Status Dates Dr. Praveena Martinez DO Primary Care Provider Active Self Referred Attending Provider Active Team Status: Inactive Member Role Status Dates Dr. Praveena Martinez DO Primary Care Provider Active Dr. Mukesh Antony MD Attending Provider, Referring Pro vider Active Team Status: Inactive Member Role Status Dates Dr. Praveena Martinez DO Primary Care Provider, Referri ng Provider Active Kobi Rubalcava PA, PA Attending Provider Active Team Status: Inactive Member Role Status Dates Dr. Praveena Martinez DO Primary Care Provider Active Yakelin Erickson SKILLS INSTRUCTOR, SKILLS INSTRUCTOR-C Attending Provider, Referring P shantell Active Wrecker Operator Relationship Specialty Start Date End Date Praveena Martinez DO [address] [place] [id number] PCP - General Family Medicine 05/02/21 Wrecker Operator Relationship Specialty Start Date End Date Praveena Martinez DO [address] [place] [id number] PCP - General Family Medicine 05/02/21 Team Status: Active Member Role Status Dates Dr. Praveena Martinez DO Primary Care Provider Active Team Status: Inactive Member Role Status Dates Dr. Praveena Martinez DO Primary Care Provider Active Start: February 26, 2024 End: February 26, 2024 Yakelin Erickson SKILLS INSTRUCTOR, SKILLS INSTRUCTOR-C Attending Provider Active Start: February 26, 2024 End: February 26, 2024 Yakelin Erickson SKILLS INSTRUCTOR, SKILLS INSTRUCTOR-C Referring Provider Active Start: February 26, 2024 End: February 26, 2024 Team Status: Active Member Role Status Dates Dr. Praveena Martinez DO Primary Care Provider Active Start: April 05, 2024 Self Referred Attending Provider Active Start: F ebruary 2024 Self Referred Referring Provider Active Start: F ebruary 2024 Team Status: Active Member Role Status Dates Dr. Praveena Martinez DO Primary Care Provider Active Start: April 05, 2024 Dr. Guille Huynh MD Attending Provider Active S tart: April 05, 2024 Team Status: Inactive Member Role Status Dates Dr. Praveena Martinez DO Primary Care Provider Active Start: May 01, 2024 End: May 01, 2024 Dr. Praveena Martinez DO Referring Provider Active Start: May 01, 2024 End: May 01, 2024 Brii Singh SKILLS INSTRUCTOR, SKILLS INSTRUCTOR-C Attending Provider Active S tart: May 01, 2024 End: May 01, 2024 Team Status: Inactive Member Role Status Dates Dr. Praveena Martinez DO Primary Care Provider Active Start: May 01, 2024 End: May 01, 2024 Brii Singh SKILLS INSTRUCTOR, SKILLS INSTRUCTOR-C Attending Provider Active S tart: May 01, 2024 End: May 01, 2024 Brii Singh SKILLS INSTRUCTOR, SKILLS INSTRUCTOR-C Referring Provider Active S tart: May 01, 2024 End: May 01, 2024 Team Status: Active Member Role/Relationship Status Dates Dr. Yue Wang DO Primary Care Provider Activ e Team Status: Inactive Member Role/Relationship Status Dates Dr. Praveena Martinez DO Primary Care Provider Active Start: May 01, 2024 End: May 01, 2024 Dr. Praveena Martinez DO Referring Provider Active Start: May 01, 2024 End: May 01, 2024 Brii Singh SKILLS INSTRUCTOR, SKILLS INSTRUCTOR-C Attending Provider Active S tart: May 01, 2024 End: May 01, 2024 Team Status: Inactive Member Role/Relationship Status Dates Dr. Praveena Martinez DO Primary Care Provider Active Start: May 01, 2024 End: May 01, 2024 Brii Singh SKILLS INSTRUCTOR, SKILLS INSTRUCTOR-C Attending Provider Active S tart: May 01, 2024 End: May 01, 2024 Brii Singh SKILLS INSTRUCTOR, SKILLS INSTRUCTOR-C Referring Provider Active S tart: May 01, 2024 End: May 01, 2024 Team Status: Active Member Role/Relationship Status Dates Dr. Steven Simpson MD Attending Provider Active Start: August 13, 2024 Dr. Steven Simpson MD Referring Provider Active Start: August 13, 2024 Dr. Yue Wang , DO Primary Care Provider Activ e Start: August 13, 2024 Brii Singh SKILLS INSTRUCTOR, SKILLS INSTRUCTOR-C Other Provider Active Start : August 13, 2024 Team Status: Active Member Role/Relationship Status Dates Dr. Yue Wang , DO Primary Care Provider Activ e Start: August 14, 2024 Dr. Yue Wang , DO Referring Provider Active Start: August 14, 2024 TOM Wright Attending Provider Active Star t: August 14, 2024 Team Status: Inactive Member Role/Relationship Status Dates Dr. Yue Wang , DO Primary Care Provider Activ e Start: August 14, 2024 End: August 14, 2024 Dr. Mukesh Antony MD Attending Provider Active S tart: August 14, 2024 End: August 14, 2024 Team Status: Inactive Member Role/Relationship Status Dates Dr. Yue Wang , DO Primary Care Provider Activ e Start: August 14, 2024 End: August 14, 2024 Dr. Yue Wang , DO Referring Provider Active Start: August 14, 2024 End: August 14, 2024 TOM Wright Attending Provider Active Star t: August 14, 2024 End: August 14, 2024 Team Status: Inactive Member Role/Relationship Status Dates Dr. Steven Simpson MD Attending Provider Active Start: August 13, 2024 End: August 13, 2024 Dr. Steven Simpson MD Referring Provider Active Start: August 13, 2024 End: August 13, 2024 Dr. Yue Wang , DO Primary Care Provider Activ e Start: August 13, 2024 End: August 13, 2024 Brii Singh SKILLS INSTRUCTOR, SKILLS INSTRUCTOR-C Other Provider Active Start : August 13, 2024 End: August 13, 2024 Team Status: Inactive Member Role/Relationship Status Dates Dr. Steven Simpson MD Attending Provider Active Start: August 13, 2024 End: August 13, 2024 Dr. Steven Simpson MD Referring Provider Active Start: August 13, 2024 End: August 13, 2024 Dr. Yue Wang , DO Primary Care Provider Activ e Start: August 13, 2024 End: August 13, 2024 Brii Singh SKILLS INSTRUCTOR, SKILLS INSTRUCTOR-C Other Provider Active Start : August 13, 2024 End: August 13, 2024 Team Status: Inactive Member Role/Relationship Status Dates Dr. Yue Wang DO Primary Care Provider Activ e Start: August 14, 2024 End: August 14, 2024 Dr. Yue Wang , DO Referring Provider Active Start: August 14, 2024 End: August 14, 2024 TOM Wright Attending Provider Active Star t: August 14, 2024 End: August 14, 2024 Team Status: Inactive Member Role/Relationship Status Dates Dr. Yue Wang DO Primary Care Provider Activ e Start: August 14, 2024 End: August 14, 2024 Dr. Mukesh Antony MD Attending Provider Active S tart: August 14, 2024 End: August 14, 2024 Team Status: Inactive Member Role/Relationship Status Dates Dr. Yue Wang DO Primary Care Provider Activ e Start: August 30, 2024 End: August 30, 2024 TOM Wright Attending Provider Active Star t: August 30, 2024 End: August 30, 2024 TOM Wright Referring Provider Active Star t: August 30, 2024 End: August 30, 2024 Team Status: Inactive Member Role/Relationship Status Dates Dr. Yue Wang DO Primary Care Provider Activ e Start: September 20, 2024 End: September 20, 2024 Dr. Yue Wang , DO Referring Provider Active Start: September 20, 2024 End: September 20, 2024 Dr. Jonathan Abdi MD Attending Provider Active Start: September 20, 2024 End: September 20, 2024 Goals (unrecognized section and content) Goals may be documented in a n alternate section No data available for this section No data available for this sectionGoals may be documented in an alternate sectionGoals may be documented in an alternate sectionGoals may be documented in an alternate section No data available for this sectionGoals may be documented in an alternate section No data available for this section No data available for this sectionGoals may be documented in an alternate sectionGoals may be documented in an alternate section No data available for this section No data available for this section No data available for this sectionGoals may be documented in an alternate sectionGoals may be documented in an alternate sectionGoals may be documented in an alternate sectionGoals may be documented in an alternate sectionGoals may be documented in an alternate sectionGoals may be documented in an alternate section Care Team (unrecognized sect ion and content) Care Team Personnel Name: PRAVEENA MARTINEZ DO Position: P4 Physician - Primary Care Med Service: Active Provider Member Role: Primary Care Physician Address: Address: [address] [place] [address] Care Team Related Persons Name: HENAOJADYN Address: [address] [place], [place] [id number] Care Team Personnel Name: PRAVEENA MARTINEZ DO Position: P4 Physician - Primary Care Med Service: Active Provider Member Role: Primary Care Physician Address: Address: [address] [place] [address] Care Team Related Persons Name: JULIANO JADYN Address: [address] [place], [place] [id number] FOR RECORDS PERTAINING TO PATIENTS WHO ARE [...] BE BASED ON THE PRIMARY CLINICAL RECORDS. [facility]. provides no warranty or guarantee of the accuracy or completeness of information in this document.
[2024-11-22 07:49] LABS: Anion Gap 10 (5-15); BUN 17 mg/dL (4-19); BUN/Creat Ratio 19.7 RATIO (10-20); Calcium,Total 8.8 mg/dL (7.6-11.0); Carbon Dioxide 25.8 mmol/L (21.0-32.0); Chloride 105 mmol/L (98-108); Glucose 140 mg/dL (70-99); Potassium 4.0 mmol/L (3.3-5.1)
== END | disposition home or self-care (01) ==
LOC: LAB 06:15
PROVIDERS: Referring Provider Nurse Practitioner Gerontology; Visit Provider Nurse Practitioner Gerontology
DX: I10 Essential (primary) hypertension (principal); I42.8 Other cardiomyopathies
CPT/HCPCS: 36415; 80048